=== PATIENT | female | born 1955 | race Caucasian/White ===

== ENCOUNTER 2018-02-23 10:43 | Outpatient (CLI) | payer MEDICARE, MEDICAID, SELFPAY ==
[2018-02-23 12:33] LABS: Anion Gap 11.8 mmol/L (3-11); BUN 12 mg/dL (7-18); CO2 26.2 mmol/L (21.0-32.0); CREATININE 0.78 mg/dL (0.55-1.02); Calcium 8.9 mg/dL (8.5-10.1); Chloride 98 mmol/L (98-107); Glucose 113 mg/dL (70-100); Potassium 4.5 mmol/L (3.5-5.1); Sodium 136 mmol/L (136-145)
== END 2018-02-23 11:03 ==
PROVIDERS: PCP Internal Medicine; Visit Provider Student in an Organized Health Care Education/Training Program
DX: N17.9 Acute kidney failure, unspecified (principal)
CPT/HCPCS: 36415; 80048

== ENCOUNTER 2018-06-07 12:24 | Outpatient (CLI) | payer MEDICARE, MEDICAID, SELFPAY ==
[2018-06-07 13:16] LABS: HCT 38.1 % (36.0-46.0); HGB 12.4 g/dL (12.0-15.5); Mean Corp. HGB Concentration 32.5 g/dL (32.0-36.0); Mean Corpuscular Hemoglobin 26.4 pg (27.0-33.0); Mean Corpuscular Volume 81.2 fL (80-95); Mean Platelet Volume 9.6 fL (8.0-11.0); Platelet Count 298 x1000/uL (130-400); RBC 4.69 m/cumm (4.00-5.20); RBC Distribution Width 17.3 % (11.7-14.6); White Blood Cell Count 12.68 k/cumm (4.4-10.8)
[2018-06-07 14:02] LABS: ALT 18 U/L (12-78); AST 18 U/L (15-37); Albumin 3.6 g/dL (3.4-5.0); Alkaline Phosphatase 105 U/L (46-116); Anion Gap 7.9 mmol/L (3-11); BUN 18 mg/dL (7-18); Bilirubin, Total 0.2 mg/dL (0.2-1.0); CO2 29.1 mmol/L (21.0-32.0); CREATININE 0.75 mg/dL (0.55-1.02); Calcium 9.3 mg/dL (8.5-10.1); Chloride 98 mmol/L (98-107); Glucose 120 mg/dL (70-100); Potassium 4.8 mmol/L (3.5-5.1); Sodium 135 mmol/L (136-145); Total Protein 7.1 g/dL (6.4-8.2)
[2018-06-07 14:27] LABS: TSH (W/Ref FT4) 1.97 uIU/mL (0.358-3.74)
== END 2018-06-07 12:44 ==
PROVIDERS: PCP Student in an Organized Health Care Education/Training Program; Visit Provider Student in an Organized Health Care Education/Training Program
DX: I10 Essential (primary) hypertension (principal); J44.9 Chronic obstructive pulmonary disease, unspecified; K74.60 Unspecified cirrhosis of liver; Z87.448 Personal history of other diseases of urinary system
CPT/HCPCS: 36415; 80053; 85027; 84443

== ENCOUNTER 2018-10-01 09:17 | Inpatient (IN) | payer MEDICARE, MEDICAID, SELFPAY ==
[2018-10-01] VITALS (37 sets, daily range): BP systolic 107–142; BP diastolic 64–87; PULSE 76–103; RESP 4–33; TEMP 36.9–37.3; O2SAT 83–98
[2018-10-01] MEDS: Albuterol/Ipratropium 3 ML UPD VIAL UPD ×3 (09:46→18:30)
[2018-10-01] MEDS: methylPREDNISolone SUCC 125 MG VIAL IVP (09:55)
--- NOTE | 2018-10-01 10:00 | DI.RAD_ITS ---
SYMPTOM/DIAGNOSIS: COUGH, SHORTNESS OF BREATH PA AND LATERAL CHEST: Comparison is made with 16 Jul 2016. The heart size is normal. There are old right rib deformities. There are patchy infiltrates seen in both lungs mainly in the lower lobes. There are underlying fibrotic changes. IMPRESSION: Bilateral infiltrates. Mild underlying fibrotic changes.
[2018-10-01 10:12] LABS: Abs Immature Grans 2.23 k/cumm (0.0-0.09); HCT 30.4 % (36.0-46.0); HGB 10.2 g/dL (12.0-15.5); Mean Corp. HGB Concentration 33.6 g/dL (32.0-36.0); Mean Corpuscular Hemoglobin 24.8 pg (27.0-33.0); Mean Corpuscular Volume 73.8 fL (80-95); Mean Platelet Volume 9.6 fL (8.0-11.0); Platelet Count 427 x1000/uL (130-400); RBC 4.12 m/cumm (4.00-5.20); RBC Distribution Width 16.1 % (11.7-14.6)
[2018-10-01 10:27] LABS: White Blood Cell Count 26.93 k/cumm (4.4-10.8)
[2018-10-01 10:30] LABS: Anion Gap 11.8 mmol/L (3-11); Bilirubin, Total 0.6 mg/dL (0.2-1.0); CO2 25.2 mmol/L (21.0-32.0); Chloride 98 mmol/L (98-107); Sodium 135 mmol/L (136-145)
[2018-10-01 10:41] LABS: Absolute Eosinophil Count 0.54 k/cumm (0.0-0.7); Absolute Lymphocyte Count 2.42 k/cumm (1.2-3.4); Absolute Monocyte Count 1.08 k/cumm (0.11-0.7); Absolute Neutrophil Count 21.27 k/cumm (1.2-6.7)
[2018-10-01 10:42] LABS: Diff Comment Manual Differential; Hypochromasia 2+; Microcytosis 2+
[2018-10-01 10:48] LABS: ALT 21 U/L (12-78); AST 32 U/L (15-37); Alkaline Phosphatase 186 U/L (46-116); BUN 47 mg/dL (7-18); CREATININE 0.94 mg/dL (0.55-1.02); Calcium 8.3 mg/dL (8.5-10.1); Glucose 147 mg/dL (70-100); Magnesium 1.6 mg/dL (1.8-2.4); NT-proBNP 354 pg/mL; Total Protein 7.1 g/dL (6.4-8.2)
[2018-10-01 10:49] LABS: Potassium 2.8 mmol/L (3.5-5.1); Troponin I < 0.02 ng/mL (0.00-0.06)
--- NOTE | 2018-10-01 10:50 | ED.GENADUL_ITS ---
Discharge Plan Disposition Patient Disposition: [facility] INPATIENT Condition: Serious Discharge Details Chief Complaint: SOB Clinical Impression: Pneumonia, Hypomagnesemia, Hypokalemia Primary Care Provider: Kirsten Friedman ED Provider: James Ge Home Meds and New Rx's Prescriptions: No Action gabapentin 300 mg capsule 300 mg PO TID Qty: 90 RF: 3 calcitriol 0.5 mcg capsule 0.5 mcg PO DAILY Qty: 30 RF: 5 methadone 10 mg/mL concentrate 75 mg PO DAILY RF: 0 compressor, for nebulizer device .ROUTE .MEDSUPPLY Qty: 1 RF: 0 polyethylene glycol 3350 [Miralax] 17 GM powder in packet 17 g PO DAILY PRNRF: 0 spironolactone [Aldactone] 25 MG tablet 25 mg PO BID Qty: 180 RF: 4 triamcinolone acetonide 15 GM cream 1 lorraine Topical TID PRNQty: 30 RF: 2 ibuprofen 200 MG capsule 400 mg PO q8h PRN PAIN Qty: 200 RF: 1 hydrochlorothiazide 25 MG tablet 25 mg PO DAILY Qty: 90 RF: 3 lisinopril 10 MG tablet 10 mg PO DAILY Qty: 30 RF: 11 mirtazapine 30 mg tablet 30 mg PO HS Qty: 30 RF: 11 bupropion HCl 300 mg tablet extended release 24 hr 300 mg PO DAILY Qty: 90 RF: 3 hydroxyzine pamoate 50 mg capsule 50 mg PO QID PRN (Reason: anxiety) Qty: 60 RF: 0 albuterol sulfate [ProAir HFA] 90 mcg/actuation HFA aerosol inhaler 1 - 2 puff Inhalation Q6H PRN PRN (Reason: bronchospasm) Qty: 3 RF: 1 albuterol sulfate 2.5 mg /3 mL (0.083 %) solution for nebulization 2.5 mg IH Q4H PRNRF: 0 albuterol sulfate 2.5 mg /3 mL (0.083 %) solution for nebulization 2.5 mg Continuous Nebulization Q4H PRN (Reason: shortness of breath or wheezing) Qty: 180 RF: 1 Medical Decision Making 10:45 --63-year-old female with history of hepatitis C cirrhosis, hypertension, COPD, here with 2 to 3 weeks of worsening cough and shortness of breath. Patient hypoxic saturating in the upper 80s on room air. Her baseline is lower 90s. 2 L nasal cannula oxygen administered and patient improved and now saturating the low 90s. She is afebrile and not tachycardic. Concern for pneumonia and acute exacerbation of COPD. Will give duoneb and solumedrol. 10:55 -- cxr interpreted by radiology: IMPRESSION: Opacities in the midlung regions in both bases may represent atelectasis or pneumonia. Will give ceftriaxone 1g IV for PNA. Labs reviewed: leukocytosis noted. hypomag and hypokalemia noted. Will give mag 1g. Will require further correction. Call to hospitalist to admit patient. 11:05 -- Spoke with hospitalist Dr. Zimmer who will admit. Recommends adding doxycycline. I will order a dose to be given now. Lactate and blood cultures pending at time of admission. HPI General Mode of arrival: ambulatory . Date/Time Provider Initiated Documentation: 10/01/18 09:28 . Limitations to Documentation: no limitations . Information obtained by: patient . HPI Narrative: 63-year-old female with multiple medical problems including history of hepatitis C cirrhosis, COPD, hypertension, here with chief complaint of shortness of breath. Patient notes that for the past 2 to 3 weeks she has had a cough. Cough started as what she describes as a upper respiratory tract infection cold. This worsened and has become a deeper intermittently productive cough. Cough productive of green sputum. Patient notes some posttussive emesis. She denies associated fever or chest pain. No leg swelling or calf pain. Shortness of breath is now moderate to severe and worse with exertion. She notes that she usually saturates in the more 90s. She went to her primary care physician yesterday who treated her with albuterol neb and symptoms seem to improve. PCP prescribed nebs for home which this has not yet been filled/delivered. Related Data Home Medications Medication Instructions Recorded Confirmed polyethylene glycol 3350 [Miralax] 17 g PO DAILY PRN packet 07/30/13 10/01/18 spironolactone 25 mg tablet 25 mg PO BID #180 tab-cap 02/08/17 10/01/18 triamcinolone acetonide 1 lorraine TOPICAL TID PRN #30 gm 09/07/17 10/01/18 ibuprofen 400 mg PO q8h PRN PAIN #200 tab-cap 12/21/17 10/01/18 hydrochlorothiazide 25 mg PO DAILY #90 tab-cap 01/25/18 10/01/18 lisinopril 10 mg PO DAILY #30 tab-cap 01/27/18 10/01/18 calcitriol 0.5 mcg capsule 0.5 mcg PO DAILY #30 cap 03/30/18 10/01/18 gabapentin 300 mg capsule 300 mg PO TID #90 cap 07/06/18 10/01/18 mirtazapine 30 mg tablet 30 mg PO HS #30 tab-cap 08/24/18 10/01/18 bupropion HCl XL 300 mg 24 hr 300 mg PO DAILY #90 tab 08/28/18 10/01/18 tablet, extended release hydroxyzine pamoate 50 mg capsule 50 mg PO QID PRN #60 tab-cap 08/29/18 10/01/18 albuterol sulfate HFA 90 1 - 2 puff INHALATION Q6H PRN PRN 09/18/18 10/01/18 mcg/actuation aerosol inhaler #3 inhaler albuterol sulfate 2.5 mg/3 mL 2.5 mg IH Q4H PRN 09/28/18 10/01/18 (0.083 %) solution for nebulization compressor, for nebulizer #1 each 09/28/18 10/01/18 methadone 10 mg/mL oral concentrate 75 mg PO DAILY ml 09/28/18 10/01/18 albuterol sulfate 2.5 mg/3 mL 2.5 mg CONTINUOUS NEBULIZATION Q4H 09/29/18 10/01/18 (0.083 %) solution for nebulization PRN #180 ml Previous Rx's Medication Instructions Recorded ibuprofen 400 mg PO q8h PRN PAIN #200 tab-cap 12/21/17 hydrochlorothiazide 25 mg PO DAILY #90 tab-cap 01/25/18 lisinopril 10 mg PO DAILY #30 tab-cap 01/27/18 calcitriol 0.5 mcg capsule 0.5 mcg PO DAILY #30 cap 03/30/18 gabapentin 300 mg capsule 300 mg PO TID #90 cap 07/06/18 mirtazapine 30 mg tablet 30 mg PO HS #30 tab-cap 08/24/18 bupropion HCl XL 300 mg 24 hr 300 mg PO DAILY #90 tab 08/28/18 tablet, extended release hydroxyzine pamoate 50 mg capsule 50 mg PO QID PRN #60 tab-cap 08/29/18 albuterol sulfate HFA 90 1 - 2 puff INHALATION Q6H PRN PRN 09/18/18 mcg/actuation aerosol inhaler #3 inhaler compressor, for nebulizer #1 each 09/28/18 albuterol sulfate 2.5 mg/3 mL 2.5 mg CONTINUOUS NEBULIZATION Q4H 09/29/18 (0.083 %) solution for nebulization PRN #180 ml Allergies Allergy/AdvReac Type Severity Reaction Status Date / Time gabapentin AdvReac Severe Nausea Verified 10/01/18 09:29 metaxalone [Metaxalone] AdvReac Severe nausea Verified 10/01/18 09:29 diclofenac [Diclofenac] AdvReac Intermediate contraindicated Verified 10/01/18 09:29 w/ pt's liver promethazine AdvReac Mild disoriented Verified 10/01/18 09:29 prochlorperazine AdvReac Unknown disoriented Verified 10/01/18 09:29 General Stated Complaint: SOB JANNIE: 2 Review of Systems Review of Systems All systems reviewed & are unremarkable except as noted in HPI and below Constitutional Denies fever(s) Cardiovascular Denies chest pain and Reports dyspnea Respiratory Reports cough, Denies hemoptysis and Reports dyspnea PFSH Medical History Essential hypertension (Chronic) Acute right-sided low back pain without sciatica (Acute 06/08/17) Shortness of breath (Acute) Abnormal CT of the chest (Acute 03/18/17) Acute renal failure (Resolved 04/29/14) Spinal stenosis (Chronic) Cirrhosis of liver (Chronic) Anxiety and depression (Chronic) Diabetes (Chronic) COPD (chronic obstructive pulmonary disease) (Chronic) Tobacco abuse (Chronic) Hypertension (Chronic) Bilateral pneumonia (Acute 04/29/14) Pleuritic chest pain (Acute 04/29/14) 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) Polysubstance abuse (Chronic) Methadone dependence (Chronic) Neuropathy of right radial nerve (Chronic) COPD (chronic obstructive pulmonary disease) Cirrhosis Diabetes mellitus HTN (hypertension) Hepatitis C Tobacco use disorder Surgical History Appendectomy (01/30/07) Family History Mother Myocardial infarction Stroke Sister Diabetes Myocardial infarction Sister Diabetes Father Diabetes Alcohol abuse Myocardial infarction Social History Smoking/Tobacco Use Status: Current-Occasional Tobacco Type: cigarettes Alcohol Intake: never Drug use: Never Substance use type: does not use Adopted: No Household members: none Housing: house Pets and animals: Yes Pets and animals: cat(s) What is your relationship status?: Panel score (0-1 are the most socially isolated patients): 0 What type of physical activity do you participate in: none Seatbelt use: always Drive intox or ride w/intox straddle bug driver: No Working smoke detector in home: Yes Fire extinguisher in home: Yes Carbon monox detector in home: Yes Do you feel safe at home: Yes Do you feel safe in your relationship?: Yes Exam Const General: cooperative and no acute distress Orientation: alert and awake HENMT Head: normocephalic Mouth: mucous membranes dry Eyes Conjunctivae: normal conjunctivae Sclera: normal sclerae Neck Neck: trachea midline and supple Resp Effort & Inspection: able to speak in complete sentences, cough and no respiratory distress Auscultation: rales bilaterally, no rhonchi and wheezes Cardio Jugular venous pressure: no JVD Rate: regular rate and not tachycardic Rhythm: regular rhythm Heart Sounds: murmur (chronic) GI Palpation: soft, not firm, no guarding, no masses, not rigid and nontender Skin General skin exam: no rashes or lesions noted Neuro General: alert, awake and tone normal Extrem General: no calf tenderness bilaterally and no edema Psych Appearance: grossly normal Mental Status: mental status grossly normal Speech and Movement: speech and movement normal Course Vital Signs Pulse Oximetry 83 L 10/01/18 09:14 Temperature 37.2 C 10/01/18 09:24 Temperature Source Temporal Artery Scan 10/01/18 09:24 Pulse 78 10/01/18 09:46 Pulse 81 10/01/18 09:50 Respiratory Rate 22 10/01/18 10:00 Respiratory Effort 10/01/18 10:00 Respiratory Depth Normal 10/01/18 10:00 Respiratory Pattern Normal 10/01/18 10:00 Blood Pressure 126/69 10/01/18 09:46 Blood Pressure Mean 83 10/01/18 09:46 Blood Pressure Position Sitting 10/01/18 09:24 Pulse Oximetry 96 10/01/18 09:50 Oxygen Delivery Method Room Air 10/01/18 09:24 Oxygen Flow Rate 0 10/01/18 09:24 Pain Level 0 10/01/18 09:24 Lab/Test Results Lab/Test Results: 10/01/18 10:33 Blood Blood Culture - Pending 10/01/18 10:33 Blood Blood Culture - Pending
--- NOTE | 2018-10-01 10:55 | DI.VRAD_ITS ---
EXAM: XR Chest, 2 Views EXAM DATE/TIME: 10/01/2018 10:21 AM CLINICAL HISTORY: 63 years old, female; Signs and symptoms; Cough and shortness of breath TECHNIQUE: Imaging protocol: XR of the chest, 2 views. COMPARISON: CR CHEST 2 VIEWS PA,LAT 07/16/2016 2:33 PM FINDINGS: Lungs: Opacities in the midlung regions in both bases may represent atelectasis or pneumonia. Pleural space: Unremarkable. No pleural effusion. No pneumothorax. Heart/Mediastinum: Unremarkable. No cardiomegaly. Bones/joints: Multiple healed right rib fractures Degenerative changes in the thoracic spine. Mild kyphosis IMPRESSION: Opacities in the midlung regions in both bases may represent atelectasis or pneumonia. Dictated and Authenticated by: Cathryn Garcia MD. Ordering:JARED Ramirez MD
[2018-10-01] MEDS: cefTRIAXone 1 GM/50 ML BAG IVPB (11:08)
[2018-10-01] MEDS: Doxycycline Hyclate 100 MG CAP PO (11:19)
[2018-10-01] MEDS: MAGNESIUM SULFATE 1 GM/100 ML BAG IVPB (11:50)
[2018-10-01] MEDS: Potassium Chloride 20 MEQ TABCR 40 MEQ PO ×2 (11:58→20:11)
--- NOTE | 2018-10-01 12:25 | W.PM.HP.N ---
Date of service: 10/01/18 Time of Service: 14:50 Assessment and Plan (1) CAP (community acquired pneumonia): Start date: 10/01/18 Start time: 14:37 Current visit: Yes Status: Acute prior to arrival she c/o Symptoms of a cold x 3 weeks with worsening SOB in the last week. Seen by provider and started on nebs, presents to ED today with hypoxia in mid 80's, cough, sputum production and SOB. CXR reveals opacities in mid lung region maybe pneumonia or atelectasis that is present prior to arrival. She was started on ceftriaxone and doxycycline. Updrafts, steroids, albuterol, she does not require oxygen at home and currently requiring 2 L oxygen. She does have a hx of COPD, her lungs have rhonchi, no wheezing or crackles. (2) COPD with acute exacerbation: Start date: 10/01/18 Start time: 14:42 Current visit: Yes Status: Acute See above, in the setting of CAP (3) Cirrhosis of liver: Start date: 10/01/18 Start time: 14:42 Current visit: No Status: Chronic History of cirrhosis with Hep C. Ammonia level checked, less than 10. Continue hydroclorithiazide. 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 (5) Diabetes: Start date: 10/01/18 Start time: 14:45 Current visit: No Status: Chronic Pt states she use to be on metformin for DM but she has since lost a lot of weight and does not require metformin. BGL here 147 by labs, unknown last A1C, A1C today 6.4 Started on SSI with sensitive scale, low carb diet and monitor blood sugars, Ac, HS (6) Essential hypertension: Start date: 10/01/18 Start time: 14:47 Current visit: No Status: Chronic lisinopril for HTN, continue to monitor. v.s. q 4 hours. (7) Tobacco abuse: Start date: 10/01/18 Start time: 14:47 Current visit: No Status: Chronic Current smoker x 30 years, not interested in smoking cessation at this time. Nicoderm patch ordered. Continue to assess patient readiness to quite. (8) GERD (gastroesophageal reflux disease): Start date: 10/01/18 Start time: 14:48 Current visit: Yes Status: Chronic Protonix 40 mg po daily (9) Opioid dependence on agonist therapy: Start date: 10/01/18 Start time: 14:49 Current visit: No Status: Chronic Takes methadone 75 mg, seen at [facility] and they manage her methadone. (10) Discharge planning issues: Start date: 10/01/18 Start time: 14:48 Current visit: Yes Status: Acute DNI (11) Hypokalemia: Start date: 10/01/18 Start time: 14:53 Current visit: Yes Status: Acute Repleted with K for level 2.8 monitor and replete as necessary. On telemetery for K (12) H/O supraventricular tachycardia: Start date: 10/01/18 Start time: 14:54 Current visit: Yes Status: Acute She does endorse hx of SVT especially when drinking caffeine. NSR at this time in the 80's. She is on telemetery and will be monitored for SVT, Monitor for prolong QT (13) Hypomagnesemia: Start date: 10/01/18 Start time: 14:53 Current visit: Yes Status: Acute Mag level of 1.6 repleted and continue to monitor and replete as necessary. (14) DVT prophylaxis: Start date: 10/01/18 Start time: 14:48 Current visit: Yes Status: Acute No history of GI bleed or varicies, Will use lovenox subcu 24 History of Present Illness Chief Complaint: CAP, COPD Narrative: Ms. Odonnell is a 63 y.o female with non oxygen dependant COPD, presenting to [facility] with complaints of cold like symtpoms x three weeks worsening over last week causing shortness of breath. Ms. Odonnell lives alone and for the last week has had increased SOB, she has PMH of HTN, COPD non oxygen dependent, DM, Cirrohsis, Tobacco abuse, Insomnia, SVT. She came to the [facility] Emergency Department today after worsening SOB, she did see her PCP at one point and was given nebs. Her illness got worse and she was coughing up brown sputum, she also states chills with fever over last week. When she arrived to the emergency department her oxygen saturation was in the mid to upper 80's requiring 2 liters of oxygen. Upon arrival per ED nursing she had wheezing and rhonchi. She had a CXR revealing opacities mid lung region questioning maybe pneumonia or atelectasis. She was asked to be admitted by our service for CAP with COPD exacerbation, she is admitted to ID with telemetery. She was started on ceftriaxone and doxycycline, sputum culture pending, blood cultures pending. Her lung sounds are rhonchi in lower bases no wheezing or crackles heard at this time, though she did have albuterol treatments prior to assessment. Solumedrol IV with tapering dose, updraft, albuterol and symbicort. Monitor for SVT with medication as patient has a hx of SVT, currently in SR with HR in 80's. She is requiring 2 L at this time. We will work on weaning O2. Ammonia level was done in setting of cirrohsis level less than 10. Her mag and potassium levels were repleted and will be checked with am labs and managed as needed. IVF for hydration with an elevated BUN. There is history of DM2 on metformin however patient states she lost a lot of weight and her sugars were good so she no longer needed coverage, while in the ED her bgl was 147 by labs with fingerstick on the floor 187, she did receive a dose of steroids, an A1C was ordered with a level of 6.4, at this time we will monitor blood sugars and use SSI in the setting of infection with steroid use. She does take lisinopril for blood pressure which will be continued. Currently takes methodone 75 mg for pain she is [facility] and she is being treated for anxiety and depression through psychiatry, we will continue her current treatment. She denies, n/v/d, CP. Review of Systems Constitutional Reports system reviewed and no additional complaints, except as docu Eyes Reports system reviewed and no additional complaints, except as docu ENT Reports system reviewed and no additional complaints, except as docu Cardiovascular Reports system reviewed and no additional complaints, except as docu Respiratory Reports as per HPI Gastrointestinal Reports system reviewed and no additional complaints, except as docu Genitourinary Reports system reviewed and no additional complaints, except as docu Musculoskeletal Reports system reviewed and no additional complaints, except as docu Integumentary/Breasts Reports system reviewed and no additional complaints, except as docu Neurologic Reports system reviewed and no additional complaints, except as [facility] Psychiatric Reports as per [facility] Endocrine Reports system reviewed and no additional complaints, except as [facility] Hematologic/Lymphatic Reports system reviewed and no additional complaints, except as [facility] Medical History Essential hypertension (Chronic) Acute right-sided low back pain without sciatica (Acute 06/08/17) Shortness of breath (Acute) Abnormal CT of the chest (Acute 03/18/17) Acute renal failure (Resolved 04/29/14) Spinal stenosis (Chronic) Cirrhosis of liver (Chronic) Anxiety and depression (Chronic) Diabetes (Chronic) COPD (chronic obstructive pulmonary disease) (Chronic) Tobacco abuse (Chronic) Hypertension (Chronic) Bilateral pneumonia (Acute 04/29/14) Pleuritic chest pain (Acute 04/29/14) 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) Polysubstance abuse (Chronic) Methadone dependence (Chronic) Neuropathy of right radial nerve (Chronic) COPD (chronic obstructive pulmonary disease) Cirrhosis Diabetes mellitus HTN (hypertension) Hepatitis C Tobacco use disorder Surgical History Appendectomy (01/30/07) Family History Mother Myocardial infarction Stroke Sister Diabetes Myocardial infarction Sister Diabetes Father Diabetes Alcohol abuse Myocardial infarction Social History Smoking/Tobacco Use Status: Current-Occasional Tobacco Type: cigarettes Alcohol Intake: never Drug use: Never Substance use type: does not use Adopted: No Household members: none Housing: house Pets and animals: Yes Pets and animals: cat(s) What is your relationship status?: Panel score (0-1 are the most socially isolated patients): 0 What type of physical activity do you participate in: none Seatbelt use: always Drive intox or ride w/intox bulk tank driver: No Working smoke detector in home: Yes Fire extinguisher in home: Yes Carbon monox detector in home: Yes Do you feel safe at home: Yes Do you feel safe in your relationship?: Yes Meds Home Medications Medication Instructions Recorded Confirmed Type polyethylene glycol 3350 [Miralax] 17 g PO DAILY PRN packet 07/30/13 10/01/18 History spironolactone 25 mg tablet 25 mg PO BID #180 tab-cap 02/08/17 10/01/18 History triamcinolone acetonide 1 lorraine TOPICAL TID PRN #30 gm 09/07/17 10/01/18 History ibuprofen 400 mg PO q8h PRN PAIN #200 tab-cap 12/21/17 10/01/18 Rx hydrochlorothiazide 25 mg PO DAILY #90 tab-cap 01/25/18 10/01/18 Rx lisinopril 10 mg PO DAILY #30 tab-cap 01/27/18 10/01/18 Rx calcitriol 0.5 mcg capsule 0.5 mcg PO DAILY #30 cap 03/30/18 10/01/18 Rx gabapentin 300 mg capsule 300 mg PO TID #90 cap 07/06/18 10/01/18 Rx mirtazapine 30 mg tablet 30 mg PO HS #30 tab-cap 08/24/18 10/01/18 Rx bupropion HCl XL 300 mg 24 hr 300 mg PO DAILY #90 tab 08/28/18 10/01/18 Rx tablet, extended release hydroxyzine pamoate 50 mg capsule 50 mg PO QID PRN #60 tab-cap 08/29/18 10/01/18 Rx albuterol sulfate HFA 90 1 - 2 puff INHALATION Q6H PRN PRN 09/18/18 10/01/18 Rx mcg/actuation aerosol inhaler #3 inhaler albuterol sulfate 2.5 mg/3 mL 2.5 mg IH Q4H PRN 09/28/18 10/01/18 History (0.083 %) solution for nebulization compressor, for nebulizer #1 each 09/28/18 10/01/18 Rx methadone 10 mg/mL oral concentrate 75 mg PO DAILY ml 09/28/18 10/01/18 History albuterol sulfate 2.5 mg/3 mL 2.5 mg CONTINUOUS NEBULIZATION Q4H 09/29/18 10/01/18 Rx (0.083 %) solution for nebulization PRN #180 ml Allergies Allergy/AdvReac Type Severity Reaction Status Date / Time gabapentin AdvReac Severe Nausea Verified 10/01/18 09:29 metaxalone [Metaxalone] AdvReac Severe nausea Verified 10/01/18 09:29 diclofenac [Diclofenac] AdvReac Intermediate contraindicated Verified 10/01/18 09:29 w/ pt's liver promethazine AdvReac Mild disoriented Verified 10/01/18 09:29 prochlorperazine AdvReac Unknown disoriented Verified 10/01/18 09:29 Exam Const General: cooperative, comfortable and no acute distress Orientation: alert, awake and oriented x3 Eyes General: appearance normal, both eyes and all related structures Neck Lymphatic: no lymphadenopathy noted and no lymphedema noted Chest Chest: normal inspection of the chest Resp Effort & Inspection: able to speak in complete sentences Auscultation: rhonchi Other: requiring 2 liters of oxygen at this time. Cardio Jugular venous pressure: no JVD Palpation: normal PMI Rate: regular rate Rhythm: regular rhythm Heart Sounds: S1 normal and S2 normal GI Inspection: normal to inspection Auscultation: normal bowel sounds Skin General skin exam: no rashes or lesions noted Neuro General: alert, awake and oriented x3 Extrem General: normal to inspection Results Labs : 10/01/18 09:55 10/01/18 09:55 Laboratory Results - last 24 hr 10/01/18 10/01/18 10/01/18 09:55 09:55 11:04 WBC 26.93 H* RBC 4.12 Hgb 10.2 L Hct 30.4 L MCV 73.8 L MCH 24.8 L MCHC 33.6 RDW 16.1 H Plt Count 427 H MPV 9.6 Immature Gran % See Differential Neutrophils % 79.0 Lymphocytes % 9.0 Monocytes % 4.0 Eosinophils % 2.0 Basophils % 0.0 Metamyelocytes % 8.0 Absolute Neutrophils 21.27 H Absolute Lymphocytes 2.42 Absolute Monocytes 1.08 H Absolute Eosinophils 0.54 Absolute Basophils 0.00 Differential Comment Manual differential RBC Morphology See below Hypochromasia 2+ Microcytosis 2+ Sodium 135 L Potassium 2.8 L* Chloride 98 Carbon Dioxide 25.2 Anion Gap 11.8 H BUN 47 H Creatinine 0.94 Estimated GFR/1.73 m2 >= 60.00 Glucose 147 H Lactate 1.0 Calcium 8.3 L Magnesium 1.6 L Total Bilirubin 0.6 AST 32 ALT 21 Alkaline Phosphatase 186 H Troponin I < 0.02 NT-Pro-B Natriuret Pep 354 H Total Protein 7.1 Albumin 2.0 L Last Vital Signs Temp 37.1 C 10/01/18 12:14 Pulse 80 10/01/18 11:45 Resp 16 10/01/18 12:01 BP 120/70 10/01/18 11:45 Pulse Ox 93 L 10/01/18 12:01
--- NOTE | 2018-10-01 12:29 | HPE_ITS ---
Date of service: 10/01/18 Time of Service: 14:50 Assessment and Plan (1) CAP (community acquired pneumonia): Start date: 10/01/18 Start time: 14:37 Current visit: Yes Status: Acute prior to arrival she c/o Symptoms of a cold x 3 weeks with worsening SOB in the last week. Seen by provider and started on nebs, presents to ED today with hypoxia in mid 80's, cough, sputum production and SOB. CXR reveals opacities in mid lung region maybe pneumonia or atelectasis that is present prior to arrival. She was started on ceftriaxone and doxycycline. Updrafts, steroids, albuterol, she does not require oxygen at home and currently requiring 2 L oxygen. She does have a hx of COPD, her lungs have rhonchi, no wheezing or crackles. (2) COPD with acute exacerbation: Start date: 10/01/18 Start time: 14:42 Current visit: Yes Status: Acute See above, in the setting of CAP (3) Cirrhosis of liver: Start date: 10/01/18 Start time: 14:42 Current visit: No Status: Chronic History of cirrhosis with Hep C. Ammonia level checked, less than 10. Continue hydroclorithiazide. 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 (5) Diabetes: Start date: 10/01/18 Start time: 14:45 Current visit: No Status: Chronic Pt states she use to be on metformin for DM but she has since lost a lot of weight and does not require metformin. BGL here 147 by labs, unknown last A1C, A1C today 6.4 Started on SSI with sensitive scale, low carb diet and monitor blood sugars, Ac, HS (6) Essential hypertension: Start date: 10/01/18 Start time: 14:47 Current visit: No Status: Chronic lisinopril for HTN, continue to monitor. v.s. q 4 hours. (7) Tobacco abuse: Start date: 10/01/18 Start time: 14:47 Current visit: No Status: Chronic Current smoker x 30 years, not interested in smoking cessation at this time. Nicoderm patch ordered. Continue to assess patient readiness to quite. (8) GERD (gastroesophageal reflux disease): Start date: 10/01/18 Start time: 14:48 Current visit: Yes Status: Chronic Protonix 40 mg po daily (9) Opioid dependence on agonist therapy: Start date: 10/01/18 Start time: 14:49 Current visit: No Status: Chronic Takes methadone 75 mg, seen at [facility] and they manage her methadone. (10) Discharge planning issues: Start date: 10/01/18 Start time: 14:48 Current visit: Yes Status: Acute DNI (11) Hypokalemia: Start date: 10/01/18 Start time: 14:53 Current visit: Yes Status: Acute Repleted with K for level 2.8 monitor and replete as necessary. On telemetery for K (12) H/O supraventricular tachycardia: Start date: 10/01/18 Start time: 14:54 Current visit: Yes Status: Acute She does endorse hx of SVT especially when drinking caffeine. NSR at this time in the 80's. She is on telemetery and will be monitored for SVT, Monitor for prolong QT (13) Hypomagnesemia: Start date: 10/01/18 Start time: 14:53 Current visit: Yes Status: Acute Mag level of 1.6 repleted and continue to monitor and replete as necessar y. (14) DVT prophylaxis: Start date: 10/01/18 Start time: 14:48 Current visit: Yes Status: Acute No history of GI bleed or varicies, Will use lovenox subcu 24 History of Present Illness Chief Complaint: CAP, COPD Narrative: Ms. Odonnell is a 63 y.o female with non oxygen dependant COPD, presenting to [facility] with complaints of cold like symtpoms x three weeks worsening over last week causing shortness of breath. Ms. Odonnell lives alone and for the last week has had increased SOB, she has PMH of HTN, COPD non oxygen dependent, DM, Cirrohsis, Tobacco abuse, Insomnia, SVT. She came to the [facility] Emergency Department today after worsening SOB, she did see her PCP at one point and was given nebs. Her illness got worse and she was coughing up brown sputum, she also states chills with fever over last week. When she arrived to the emergency department her oxygen saturation was in the mid to upper 80's requiring 2 liters of oxygen. Upon arrival per ED nursing she had wheezing and rhonchi. She had a CXR revealing opacities mid lung region questioning maybe pneumonia or atelectasis. She was asked to be admitted by our service for CAP with COPD exacerbation, she is admitted to [place] with telemetery. She was started on ceftriaxone and doxycycline, sputum culture pending, blood cultures pending. Her lung sounds are rhonchi in lower bases no wheezing or crackles heard at this time, though she did have albuterol treatments prior to assessment. Solumedrol IV with tapering dose, updraft, albuterol and symbicort. Monitor for SVT with medication as patient has a hx of SVT, currently in SR with HR in 80's. She is requiring 2 L at this time. We will work on weaning O2. Ammonia level was done in setting of cirrohsis level less than 10. Her mag and potassium levels were repleted and will be checked with am labs and managed as needed. IVF for hydration with an elevated BUN. There is history of DM2 on metformin however patient states she lost a lot of weight and her sugars were good so she no longer needed coverage, while in the ED her bgl was 147 by labs with fingerstick on the floor 187, she did receive a dose of steroids, an A1C was ordered with a level of 6.4, at this time we will monitor blood sugars and use SSI in the setting of infection with steroid use. She does take lisinopril for blood pressure which will be continued. Currently takes methodone 75 mg for pain she is seen through the [facility] clinic and she is being treated for anxiety and depression through psychiatry, we will continue her current treatment. She denies, n/v/d, CP. Review of Systems Constitutional Reports system reviewed and no additional complaints, except as docu Eyes Reports system reviewed and no additional complaints, except as docu ENT Reports system reviewed and no additional complaints, except as docu Cardiovascular Reports system reviewed and no additional complaints, except as docu Respiratory Reports as per HPI Gastrointestinal Reports system reviewed and no additional complaints, except as docu Genitourinary Reports system reviewed and no additional complaints, except as docu Musculoskeletal Reports system reviewed and no additional complaints, except as docu Integumentary/Breasts Reports system reviewed and no additional complaints, except as [facility] Neurologic Reports system reviewed and no additional complaints, except as [facility] Psychiatric Reports as per [facility] Endocrine Reports system reviewed and no additional complaints, except as [facility] Hematologic/Lymphatic Reports system reviewed and no additional complaints, except as [facility] Medical History Essential hypertension (Chronic) Acute right-sided low back pain without sciatica (Acute 06/08/17) Shortness of breath (Acute) Abnormal CT of the chest (Acute 03/18/17) Acute renal failure (Resolved 04/29/14) Spinal stenosis (Chronic) Cirrhosis of liver (Chronic) Anxiety and depression (Chronic) Diabetes (Chronic) COPD (chronic obstructive pulmonary disease) (Chronic) Tobacco abuse (Chronic) Hypertension (Chronic) Bilateral pneumonia (Acute 04/29/14) Pleuritic chest pain (Acute 04/29/14) 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) Polysubstance abuse (Chronic) Methadone dependence (Chronic) Neuropathy of right radial nerve (Chronic) COPD (chronic obstructive pulmonary disease) Cirrhosis Diabetes mellitus HTN (hypertension) Hepatitis C Tobacco use disorder Surgical History Appendectomy (01/30/07) Family History Mother Myocardial infarction Stroke Sister Diabetes Myocardial infarction Sister Diabetes Father Diabetes Alcohol abuse Myocardial infarction Social History Smoking/Tobacco Use Status: Current-Occasional Tobacco Type: cigarettes Alcohol Intake: never Drug use: Never Substance use type: does not use Adopted: No Household members: none Housing: house Pets and animals: Yes Pets and animals: cat(s) What is your relationship status?: Panel score (0-1 are the most socially isolated patients): 0 What type of physical activity do you participate in: none Seatbelt use: always Drive intox or ride w/intox driver/merchandiser: No Working smoke detector in home: Yes Fire extinguisher in home: Yes Carbon monox detector in home: Yes Do you feel safe at home: Yes Do you feel safe in your relationship?: Yes Meds Home Medications Medication Instructions Recorded Confirmed Type polyethylene glycol 3350 [Miralax] 17 g PO DAILY PRN packet 07/30/13 10/01/18 History spironolactone 25 mg tablet 25 mg PO BID #180 tab-cap 02/08/17 10/01/18 History triamcinolone acetonide 1 lorraine TOPICAL TID PRN #30 gm 09/07/17 10/01/18 History ibuprofen 400 mg PO q8h PRN PAIN #200 tab-cap 12/21/17 10/01/18 Rx hydrochlorothiazide 25 mg PO DAILY #90 tab-cap 01/25/18 10/01/18 Rx lisinopril 10 mg PO DAILY #30 tab-cap 01/27/18 10/01/18 Rx calcitriol 0.5 mcg capsule 0.5 mcg PO DAILY #30 cap 03/30/18 10/01/18 Rx gabapentin 300 mg capsule 300 mg PO TID #90 cap 07/06/18 10/01/18 Rx mirtazapine 30 mg tablet 30 mg PO HS #30 tab-cap 08/24/18 10/01/18 Rx bupropion HCl XL 300 mg 24 hr 300 mg PO DAILY #90 tab 08/28/18 10/01/18 Rx tablet, extended release hydroxyzine pamoate 50 mg capsule 50 mg PO QID PRN #60 tab-cap 08/29/18 10/01/18 Rx albuterol sulfate HFA 90 1 - 2 puff INHALATION Q6H PRN PRN 09/18/18 10/01/18 Rx mcg/actuation aerosol inhaler #3 inhaler albuterol sulfate 2.5 mg/3 mL 2.5 mg IH Q4H PRN 09/28/18 10/01/18 History (0.083 %) solution for nebulization compressor, for nebulizer #1 each 09/28/18 10/01/18 Rx methadone 10 mg/mL oral concentrate 75 mg PO DAILY ml 09/28/18 10/01/18 History albuterol sulfate 2.5 mg/3 mL 2.5 mg CONTINUOUS NEBULIZATION Q4H 09/29/18 10/01/18 Rx (0.083 %) solution for nebulization PRN #180 ml Allergies Allergy/AdvReac Type Severity Reaction Status Date / Time gabapentin AdvReac Severe Nausea Verified 10/01/18 09:29 metaxalone [Metaxalone] AdvReac Severe nausea Verified 10/01/18 09:29 diclofenac [Diclofenac] AdvReac Intermediate contraindicated Verified 10/01/18 09:29 w/ pt's liver promethazine AdvReac Mild disoriented Verified 10/01/18 09:29 prochlorperazine AdvReac Unknown disoriented Verified 10/01/18 09:29 Exam Const General: cooperative, comfortable and no acute distress Orientation: alert, awake and oriented x3 Eyes General: appearance normal, both eyes and all related structures Neck Lymphatic: no lymphadenopathy noted and no lymphedema noted Chest Chest: normal inspection of the chest Resp Effort & Inspection: able to speak in complete sentences Auscultation: rhonchi Other: requiring 2 liters of oxygen at this time. Cardio Jugular venous pressure: no JVD Palpation: normal PMI Rate: regular rate Rhythm: regular rhythm Heart Sounds: S1 normal and S2 normal GI Inspection: normal to inspection Auscultation: normal bowel sounds Skin General skin exam: no rashes or lesions noted Neuro General: alert, awake and oriented x3 Extrem General: normal to inspection Results Labs : 10/01/18 09:55 10/01/18 09:55 Laboratory Results - last 24 hr 10/01/18 10/01/18 10/01/18 09:55 09:55 11:04 WBC 26.93 H* RBC 4.12 Hgb 10.2 L Hct 30.4 L MCV 73.8 L MCH 24.8 L MCHC 33.6 RDW 16.1 H Plt Count 427 H MPV 9.6 Immature Gran % See Differential Neutrophils % 79.0 Lymphocytes % 9.0 Monocytes % 4.0 Eosinophils % 2.0 Basophils % 0.0 Metamyelocytes % 8.0 Absolute Neutrophils 21.27 H Absolute Lymphocytes 2.42 Absolute Monocytes 1.08 H Absolute Eosinophils 0.54 Absolute Basophils 0.00 Differential Comment Manual differential RBC Morphology See below Hypochromasia 2+ Microcytosis 2+ Sodium 135 L Potassium 2.8 L* Chloride 98 Carbon Dioxide 25.2 Anion Gap 11.8 H BUN 47 H Creatinine 0.94 Estimated GFR/1.73 m2 >= 60.00 Glucose 147 H Lactate 1.0 Calcium 8.3 L Magnesium 1.6 L Total Bilirubin 0.6 AST 32 ALT 21 Alkaline Phosphatase 186 H Troponin I < 0.02 NT-Pro-B Natriuret Pep 354 H Total Protein 7.1 Albumin 2.0 L Last Vital Signs Temp 37.1 C 10/01/18 12:14 Pulse 80 10/01/18 11:45 Resp 16 10/01/18 12:01 BP 120/70 10/01/18 11:45 Pulse Ox 93 L 10/01/18 12:01
[2018-10-01] MEDS: Insulin Aspart 300 UNITS/3 ML PEN SC ×3 (13:52→22:20)
[2018-10-01] MEDS: Nicotine 21 MG/24 HR PATCH TD (14:04)
[2018-10-01] MEDS: Gabapentin 300 MG CAP PO ×2 (14:04→20:10)
[2018-10-01] MEDS: Benzonatate 200 MG CAP PO ×2 (14:05→20:10)
[2018-10-01 14:27] LABS: Ammonia < 10 umol/L (11-32)
[2018-10-01 14:28] LABS: Hemoglobin A1C 6.4 % (4.5-6.2)
[2018-10-01] MEDS: Enoxaparin 40 MG/0.4 ML SYR SC (17:21)
[2018-10-01] MEDS: methylPREDNISolone SUCC 125 MG VIAL 80 MG IVP (17:23)
[2018-10-01] MEDS: Normal Saline Flush 10 ML SYR IVP ×2 (17:28→17:56)
[2018-10-01] MEDS: Furosemide 40 MG/4 ML VIAL IVP (17:55)
[2018-10-01 18:05] LABS: Potassium 3.8 mmol/L (3.5-5.1)
[2018-10-01] MEDS: guaiFENesin 600 MG TABCR PO (20:10)
[2018-10-01] MEDS: Spironolactone 25 MG TAB PO (20:10)
[2018-10-01] MEDS: DOXYCYCLINE 100 MG in Normal Saline 100 ML IVPB (20:21)
[2018-10-01] MEDS: Budesonide/Formoterol 160/4.5 6 GM 60 PUFF INH IH (20:22)
[2018-10-01] MEDS: Mirtazapine 15 MG TAB 30 MG PO (22:19)
[2018-10-02] VITALS (19 sets, daily range): BP systolic 100–133; BP diastolic 66–86; PULSE 64–84; RESP 1–20; TEMP 36.4–37.8; O2SAT 90–97
[2018-10-02] MEDS: Albuterol/Ipratropium 3 ML UPD VIAL UPD ×4 (00:24→23:45)
[2018-10-02] MEDS: Normal Saline Flush 10 ML SYR IVP ×4 (02:33→20:16)
[2018-10-02] MEDS: methylPREDNISolone SUCC 125 MG VIAL 80 MG IVP ×3 (02:34→17:49)
[2018-10-02 07:20] LABS: HCT 30.7 % (36.0-46.0); HGB 10.1 g/dL (12.0-15.5); Mean Corp. HGB Concentration 32.9 g/dL (32.0-36.0); Mean Corpuscular Hemoglobin 24.6 pg (27.0-33.0); Mean Corpuscular Volume 74.7 fL (80-95); Mean Platelet Volume 9.4 fL (8.0-11.0); Platelet Count 392 x1000/uL (130-400); RBC 4.11 m/cumm (4.00-5.20); RBC Distribution Width 16.2 % (11.7-14.6); White Blood Cell Count 19.68 k/cumm (4.4-10.8)
[2018-10-02] MEDS: guaiFENesin 600 MG TABCR PO ×2 (07:26→20:17)
[2018-10-02] MEDS: Potassium Chloride 20 MEQ TABCR 40 MEQ PO ×2 (07:29→20:17)
[2018-10-02] MEDS: Spironolactone 25 MG TAB PO ×2 (07:29→20:17)
[2018-10-02] MEDS: Benzonatate 200 MG CAP PO ×3 (07:29→20:17)
[2018-10-02] MEDS: Pantoprazole 40 MG TABCR PO (07:30)
[2018-10-02 07:31] LABS: Anion Gap 11.9 mmol/L (3-11); BUN 39 mg/dL (7-18); CO2 25.1 mmol/L (21.0-32.0); CREATININE 0.86 mg/dL (0.55-1.02); Calcium 8.5 mg/dL (8.5-10.1); Chloride 99 mmol/L (98-107); Glucose 190 mg/dL (70-100); Magnesium 1.4 mg/dL (1.8-2.4); Potassium 3.9 mmol/L (3.5-5.1); Sodium 136 mmol/L (136-145)
[2018-10-02] MEDS: DOXYCYCLINE 100 MG in Normal Saline 100 ML IVPB ×2 (07:31→20:16)
[2018-10-02] MEDS: Gabapentin 300 MG CAP PO ×3 (07:33→20:17)
[2018-10-02] MEDS: buPROPion-XL 150 MG TABCR 300 MG PO (08:30)
[2018-10-02] MEDS: Calcitriol 0.25 MCG CAP 0.5 MCG PO (08:30)
[2018-10-02] MEDS: hydroCHLOROthiazide 25 MG TAB PO (08:31)
[2018-10-02] MEDS: Lisinopril 10 MG TAB PO (08:32)
[2018-10-02] MEDS: Insulin Aspart 300 UNITS/3 ML PEN SC ×4 (08:37→21:53)
--- NOTE | 2018-10-02 08:46 | PDOC.CMIN ---
Care Management Initial Assess REASON FOR HOSPITALIZATION:: Acute exacerbation of COPD with hypoxia, CAP PAST MEDICAL HISTORY/PAST SURGICAL HISTORY:: Essential hypertension, Acute right-sided low back pain without sciatic, Shortness of breath, Abnormal CT of the chest, Acute renal failure, Spinal stenosis, Cirrhosis of liver, Anxiety and depression, Diabetes, COPD. Tobacco abuse, Hypertension, Bilateral pneumonia. Pleuritic chest pain, 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. Polysubstance abuse, Methadone dependence, Neuropathy of right radial nerve, COPD, Cirrhosis, Diabetes mellitus, HTN, Hepatitis C, Tobacco use disorder PREVIOUS FUNCTIONAL STATUS/SOCIAL/FAMILY SUPPORTS:: Kira resides alone in [place], [place] in her own mobile home. She reports supportive friends nearby who help her with ADLs as needed. She reports being a patient of [facility] with daily meds and transport via [facility]. She reports having an outpatient counselor; Selena Morgan. CURRENT FUNCTIONAL STATUS:: Kira was lying in bed, open to conversation and forthcoming with information. Has patient been provided with information about the portal?: Yes Did the patient sign up for the portal?: No CODE STATUS:: DNI INSURANCE COVERAGE / FINANCIAL ISSUES:: Medicaid. Medicare CURRENT HOME/COMMUNITY SERVICES/EQUIPMENT:: [facility], [facility], [facility], individual counseling: svetlana Sinclair meds prescribed by PCP. PRIMARY CARE PHYSICIAN:: Kirsten Arellano POTENTIAL DISCHARGE NEEDS:: Follow up appointments, coordination with community providers. PATIENT/FAMILY EDUCATION NEEDS:: Review of discharge instructions; discuss [facility]. ANTICIPATED BARRIERS TO DISCHARGE:: None identified. TRANSPORTATION:: Via private vehicle with a friend or via [facility]. PLAN:: Kira will continue to be closely monitored at this time. CM will continue to support discharge planning considerations. Kira will transport via private vehicle with a friend.
[2018-10-02] MEDS: Methadone Liquid 10 MG/ML 75 MG PO (09:13)
[2018-10-02] MEDS: MAGNESIUM SULFATE 4 GM/100 ML BAG IVPB (09:19)
[2018-10-02 09:27] LABS: Absolute Lymphocyte Count 0.59 k/cumm (1.2-3.4); Anisocytosis 1+; Atypical Lymphocytes % 1; Diff Comment Manual Differential
[2018-10-02 09:28] LABS: Hypochromasia 1+; Microcytosis 2+; Poikilocytes 1+; Polychromasia Present
[2018-10-02] MEDS: Budesonide/Formoterol 160/4.5 6 GM 60 PUFF INH IH ×2 (09:58→20:17)
[2018-10-02] MEDS: cefTRIAXone 1 GM/50 ML BAG IVPB (10:01)
[2018-10-02] MEDS: Magnesium Oxide 400 MG TAB PO ×2 (10:02→21:53)
--- NOTE | 2018-10-02 11:17 | PGE_ITS ---
Date of Service Date of service: 10/02/18 Time of Service: 11:52 Assessment and Plan (1) CAP (community acquired pneumonia): Start date: 10/02/18 Start time: 11:14 Current visit: Yes Status: Acute Day 2 rocephin and doxycycline. She did have some crackles last night she was given lasix, this morning she does have crackles and 1+ edema, no fluids are infusing but antbiotics, question a CHF component vs volume overload vs pulmonary HTN in the setting of CAP and COPD exacerbation Echo ordered, placed on lasix 20 mg IV BID and monitor. Continue steroids, nebs, updrafts, symbicort. Coughing but producing little sputum, continue mucinex requiring two liters oxygen at this time. blood cultures with no growth at this time. Gram stain pending at this time. Afebrile, feeling improved (2) COPD with acute exacerbation: Start date: 10/02/18 Start time: 11:28 Current visit: Yes Status: Acute See above, in the setting of CAP nebs, steroids, oxygen, updrafts (3) Cirrhosis of liver: Start date: 10/02/18 Start time: 11:30 Current visit: No Status: Chronic History of cirrhosis with Hep C. Ammonia level checked, less than 10. Continue hydroclorithiazide. Qualifiers: Hepatic cirrhosis type: other cirrhosis Qualified Code(s): K74.69 - Other cirrhosis of liver (4) Fluid overload: Start date: 10/02/18 Start time: 11:31 Current visit: Yes Status: Acute Given crackles in the lungs, 1+ edema, no IVF infusing, and hx of cirrhosis, question CHF, vs. volume overload, vs. 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 (6) Diabetes: Start date: 10/02/18 Start time: 11:37 Current visit: No Status: Chronic A1C of 6.4 on SSI, public health educator consulted. (7) Essential hypertension: Start date: 10/02/18 Start time: 11:40 Current visit: No Status: Chronic lisinopril for HTN, continue to monitor. v.s. q 4 hours. controlled at this time (8) Tobacco abuse: Start date: 10/02/18 Start time: 11:41 Current visit: No Status: Chronic continue encourage smoking cessation (9) GERD (gastroesophageal reflux disease): Start date: 10/02/18 Start time: 11:41 Current visit: Yes Status: Chronic Protonix 40 mg po daily (10) Opioid dependence on agonist therapy: Start date: 10/02/18 Current visit: No Status: Chronic Takes methadone 75 mg, seen at [facility] (11) Discharge planning issues: Start date: 10/02/18 Start time: 11:41 Current visit: Yes Status: Acute DNI (12) Hypokalemia: Current visit: Yes Status: Acute Resolved today 3.9 continue to monitor by daily labs (13) H/O supraventricular tachycardia: Start date: 10/02/18 Start time: 11:42 Current visit: Yes Status: Acute She does endorse hx of SVT especially when drinking caffeine. NSR at this time in the 80's. She is on telemetery and will be monitored for SVT, Monitor for prolong QT (14) Hypomagnesemia: Current visit: Yes Status: Acute Mag level of 1.4 today after repletion yesterday repleted with 4 gram infusion and mag oxide 400 mg BID and continue to monitor (15) DVT prophylaxis: Start date: 10/02/18 Start time: 11:43 Current visit: Yes Status: Acute lovenox subcu 24 Subjective Patient reports: feels better Interval history since last seen: Ms. Odonnell states she is feeling better though on assessment she is found to have crackles in bilateral bases with rhonchi and requiring 2 liters of oxygen. She does have 1+ edema to bilateral ankles. Lasix 20 mg IVP BID ordered. Echo ordered questionable, CHF vs. volume overload though no fluids have been infusing except antibiotics, vs pulmonary hypertension. She does not know if she has ever had an echo, she has had PFT in the past and she denies CHIQUIS. Day 2 rocephine and doxycycline, continue steroids, nebs, updrafts, and albuterol. She does have a hx of SVT, given she is on symbicort and nebs continue to telemetery currently in NSR with rate of 80-90's. She is currently requiring 2 liters of oxygen we will wean her off. She is non oxygen dependant. Her mag level was lower today despite repletetion yesterday. 4 gram run ordered and 400 mg mag oxide BID ordered for repletetion. Her A1C was 6.4 continue SSI and carb diet. staff development educator consulted. She denies, CP, SOB when sitting and n/v/d Exam Const General: cooperative, comfortable and no acute distress Orientation: alert, awake and oriented x3 Eyes General: appearance normal, both eyes and all related structures Neck Lymphatic: no lymphadenopathy noted and no lymphedema noted Chest Chest: normal inspection of the chest Resp Effort & Inspection: able to speak in complete sentences Auscultation: crackles and rhonchi Cardio Jugular venous pressure: no JVD Palpation: normal PMI Rate: regular rate Rhythm: regular rhythm Heart Sounds: S1 normal and S2 normal GI Inspection: normal to inspection Auscultation: normal bowel sounds Skin General skin exam: no rashes or lesions noted Neuro General: alert, awake and oriented x3 Extrem General: normal to inspection Objective Objective Clinical Data: Abnormal lab results 10/01/18 10/01/18 10/02/18 Range/Units 09:55 14:10 06:40 WBC (4.4-10.8) k/cumm Hgb (12.0-15.5) g/dL Hct (36.0-46.0) % MCV (80-95) fL MCH (27.0-33.0) pg RDW (11.7-14.6) % Absolute Neutrophils (1.2-6.7) k/cumm Absolute Lymphocytes (1.2-3.4) k/cumm Anion Gap 11.9 H (3-11) mmol/L BUN 39 H (7-18) mg/dL Glucose 190 H (70-100) mg/dL Hemoglobin A1c 6.4 H (4.5-6.2) % Magnesium 1.4 L (1.8-2.4) mg/dL Ammonia < 10 L (11-32) umol/L 10/02/18 Range/Units 06:46 WBC 19.68 H (4.4-10.8) k/cumm Hgb 10.1 L (12.0-15.5) g/dL Hct 30.7 L (36.0-46.0) % MCV 74.7 L (80-95) fL MCH 24.6 L (27.0-33.0) pg RDW 16.2 H (11.7-14.6) % Absolute Neutrophils 18.70 H (1.2-6.7) k/cumm Absolute Lymphocytes 0.59 L (1.2-3.4) k/cumm Anion Gap (3-11) mmol/L BUN (7-18) mg/dL Glucose (70-100) mg/dL Hemoglobin A1c (4.5-6.2) % Magnesium (1.8-2.4) mg/dL Ammonia (11-32) umol/L Vital Signs Temperature 37.5 C 10/02/18 07:30 Temperature Source Tympanic 10/02/18 07:30 Pulse 84 10/02/18 07:30 Pulse Rhythm Regular 10/02/18 07:06 Pulse 92 H 10/01/18 12:01 Respiratory Rate 18 10/02/18 07:14 Respiratory Effort 10/02/18 07:06 Respiratory Depth Normal 10/02/18 07:06 Respiratory Pattern Normal 10/02/18 07:06 Blood Pressure 116/68 10/02/18 07:30 Blood Pressure Mean 83 10/01/18 11:45 Blood Pressure Position Sitting 10/01/18 09:24 Pulse Oximetry 90 L 10/02/18 10:00 Oxygen Delivery Method Nasal Cannula 10/02/18 10:00 Oxygen Flow Rate 1 10/02/18 10:00 Pain Level 0 10/02/18 00:30 Comment 10/02/18 07:30 Intake & Output 10/01/18 10/01/18 10/02/18 11:59 23:59 11:59 Intake Total 50 / 1170 1120 / 1170 600 / 600 Output Total 2425 / 2425 700 / 700 Balance 50 / -1255 -1305 / -1255 -100 / -100 Weight 51.9 kg 49.4 kg Intake: IV 50 / 150 100 / 150 Oral 1020 / 1020 600 / 600 Output: Urine 2425 / 2425 700 / 700 Other: Urine Color Yellow Dark Jo Urine Appearance Clear Clear Urine Odor None Comment Was given 40mg of lasix Voiding Methods Toilet Toilet Laboratory Results WBC 19.68 k/cumm (4.4-10.8) H 10/02/18 06:46 RBC 4.11 m/cumm (4.00-5.20) 10/02/18 06:46 Hgb 10.1 g/dL (12.0-15.5) L 10/02/18 06:46 Hct 30.7 % (36.0-46.0) L 10/02/18 06:46 MCV 74.7 fL (80-95) L 10/02/18 06:46 MCH 24.6 pg (27.0-33.0) L 10/02/18 06:46 MCHC 32.9 g/dL (32.0-36.0) 10/02/18 06:46 RDW 16.2 % (11.7-14.6) H 10/02/18 06:46 Plt Count 392 x1000/uL (130-400) 10/02/18 06:46 MPV 9.4 fL (8.0-11.0) 10/02/18 06:46 Immature Gran % See Differential 10/02/18 06:46 Neutrophils % 89.0 10/02/18 06:46 Band Neutrophils % 6.0 % 10/02/18 06:46 Lymphocytes % 2.0 10/02/18 06:46 Atypical Lymphs % 1 10/02/18 06:46 Monocytes % 1.0 10/02/18 06:46 Eosinophils % 0.0 10/02/18 06:46 Basophils % 0.0 10/02/18 06:46 Metamyelocytes % 8.0 % 10/01/18 09:55 Myelocytes % 1.0 % 10/02/18 06:46 Absolute Neutrophils 18.70 k/cumm (1.2-6.7) H 10/02/18 06:46 Absolute Lymphocytes 0.59 k/cumm (1.2-3.4) L 10/02/18 06:46 Absolute Monocytes 0.20 k/cumm (0.11-0.7) 10/02/18 06:46 Absolute Eosinophils 0.00 k/cumm (0.0-0.7) 10/02/18 06:46 Absolute Basophils 0.00 k/cumm (0.0-0.2) 10/02/18 06:46 Differential Comment Manual differential 10/02/18 06:46 RBC Morphology See below 10/02/18 06:46 Polychromasia Present 10/02/18 06:46 Hypochromasia 1+ 10/02/18 06:46 Poikilocytosis 1+ 10/02/18 06:46 Anisocytosis 1+ 10/02/18 06:46 Microcytosis 2+ 10/02/18 06:46 Sodium 136 mmol/L (136-145) 10/02/18 06:40 Potassium 3.9 mmol/L (3.5-5.1) 10/02/18 06:40 Chloride 99 mmol/L (98-107) 10/02/18 06:40 Carbon Dioxide 25.1 mmol/L (21.0-32.0) 10/02/18 06:40 Anion Gap 11.9 mmol/L (3-11) H 10/02/18 06:40 BUN 39 mg/dL (7-18) H 10/02/18 06:40 Creatinine 0.86 mg/dL (0.55-1.02) 10/02/18 06:40 Estimated GFR/1.73 m2 >= 60.00 (mL/min/1.73m2) 10/02/18 06:40 Glucose 190 mg/dL (70-100) H 10/02/18 06:40 Hemoglobin A1c 6.4 % (4.5-6.2) H 10/01/18 09:55 Lactate 1.0 mmol/l (0.6-1.4) 10/01/18 11:04 Calcium 8.5 mg/dL (8.5-10.1) 10/02/18 06:40 Magnesium 1.4 mg/dL (1.8-2.4) L 10/02/18 06:40 Total Bilirubin 0.6 mg/dL (0.2-1.0) 10/01/18 09:55 AST 32 U/L (15-37) 10/01/18 09:55 ALT 21 U/L (12-78) 10/01/18 09:55 Alkaline Phosphatase 186 U/L (46-116) H 10/01/18 09:55 Ammonia < 10 umol/L (11-32) L 10/01/18 14:10 Troponin I < 0.02 ng/mL (0.00-0.06) 10/01/18 09:55 NT-Pro-B Natriuret Pep 354 pg/mL (-299) H 10/01/18 09:55 Total Protein 7.1 g/dL (6.4-8.2) 10/01/18 09:55 Albumin 2.0 g/dL (3.4-5.0) L 10/01/18 09:55
--- NOTE | 2018-10-02 14:08 | PT.INIE ---
Date of service: 10/02/18 Time of Service: 13:15 PT Notes Inpatient Physical Therapy Evaluation Date: 10/02/18 Referring Doctor: Carlene Virk PT Orders: PT CONSULT:Eval and treat Precautions: Standard and mask Patient Profile/Admitting Diagnosis: Presented to ER on 10/01 due to SOB developing over 2-3 weeks. Confirmed community acquired pneumonia in ER, with admission required for proper treatment. 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 Has a neighbor who looks in on her. No supportive family. 3 steps with rail to enter. Current Functional Limitations: SOB with short distance ambulation, O2 dependent. Equipment Owned/DME: None Premorbid level of function: Independent, able to lift light to moderate objects, cleans her own home, relies on [facility] for transportation to [facility] daily for methadone. Subjective: Feels her breathing has improved since admission. She Objective: General Observation: Sitting, with nasal canula, IV L cubital fossa Mental Status: A & O x3 Pain: 0/10 Vital Signs: BP 105/67, HR 77, 89% 02 on 1L ROM: Right Upper Extremity: WFL Left Upper Extremity: WFL Right Lower Extremity: WFL Left Lower Extremity: WFL Strength: Right Upper Extremity: Grossly WFL Left Upper Extremity: Grossly WFL Right Lower Extremity: Grossly WFL Left Lower Extremity: Grossly WFL Endurance: POOR, only tolerating 45 ft with O2 support, due to SOB. Sensation: Intact Bed Mobility/Transfers: Supervision Gait: Supervision due to SOB, 1 L 02 via NC. O2 dropped to 87%, but recovers quickly. Balance: Static Sitting: Good Dynamic Sitting: Good Static Standing: Good Dynamic Standing: Good Special Tests: Mobility Limitations Standardized Measure [facility] AM-PAC 6 clicks Basic Mobility Inpatient Short Form: Raw Score: Standardized Score: CMS Score: 20% disabiltiy CMS Modifier: Informed Consent/Education: Patient instructed in purpose of PT consult and plan of care. Assessment: Patient is a 63 year old female referred to physical therapy services with the diagnosis of deconditioning, secondary to community aquired penumonia and exacerbation of COPD. Patient presents with clinical signs and symptoms consistent with SOB and O2 dependence, as demonstrated by the following impairment level findings: SOB, O2 dependence, supervision required for ambulation. Impairments are contributing to the following functional limitations: [facility] score 20% disability, unable to ambulate beyond 45 ft without supervision and 1L02 support due to SOB, quick fatigue with basic functional activities. Patient is assessed as a Low 84175 x Moderate 67807 High 26185 complexity based on the following: History: See PMH Examination: See above impairments and functional limitations Presentation: Evolving Decision Making: Easy Goals: Goals X1 week 1. Supine-Sit I 2. Sit-Supine I 3. Sit-Stand I 4. Stand-Sit I 5. Bed-Chair I 6. Chair-Bed I 7. Gait I, household distance no O2 support 8. Stairs 3, I, no O2 support. Plan of Care/Treatment Plan: 1-2x/day, 7 days/week x 1 week. Plan of care has been reviewed with the RESIDENCE SUPERVISOR providing the service under Physical Therapy direction. Initiate Physical Therapy intervention for strengthening, bed mobility, transfers, gait, stairs, balance training, use of assistive device. DISCHARGE RECOMMENDATIONS: Home. Outpatient PT for continued conditioning if physical limitations demand. TREATMENT CODE/TIME: 28351, 30 minutes.
--- NOTE | 2018-10-02 14:18 | OT.INIE ---
Occupational Therapy Notes Inpatient Occupational Therapy Evaluation Date: 10/02/18 Referring Doctor:Carlene Virk NP OT Orders: Deconditioning Precautions: Droplet Precautions PATIENT PROFILE/ADMITTING DIAGNOSIS: Pt is a 63 year old female who was admitted through the ER on 09/30/18 for pneumonia, hypomagnesemia, hypokalemia. 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 She states that she does not perform her own community ambulation but has friends who (A) with this and states that she receives rides through [employer]. Pt has a walk in shower she is (I) with all ADLs/IADLs. She reports that her friends drive her to go grocery shopping. She does not require O2 at home but believes that this is helpful for her. Pt reports that she has difficulty maintaining her yard work and that her 5 years ago so she had to learn fast what needed to be done. Equipment owned/DME: None per pt report. SUBJECTIVE: Pt was sitting in bed when OT arrived. She was agreeable to OT consult and states that she feels that she is pretty much at her baseline level of function at this time but with use of oxygen. OBJECTIVE: General Observation: O2 nasal cannula, IV (L) UE, Mental Status: A&Ox3 Pain: c/o pain pt does not specify but reports that she would like to have her gabapentin if that is ok. Nursing came in post session to assess this at this time. ROM: RUE AROM WNL L UE AROM WNL STRENGTH: RUE Shoulder flexion 4/5, bicep/tricep 4/5, furniture inspector 5/5 LUE Shoulder flexion 5/5, bicep/tricep 5/5, furniture inspector 5/5 FUNCTIONAL MOBILITY/ADLS: Pt denies the need to perform ADLs as she states that she performed this (I) earlier this morning. BALANCE: Static sitting Normal Dynamic Sitting Normal Static Standing NT Dynamic Standing NT SPECIAL TESTS: Daily Activity Limitations Standardized Measure [facility] AM -PAC ?6 clicks? Daily Activity Inpatient Short Form: Raw score: 23 Standardized score: 51.12 CMS score: 25.80% INFORMED CONSENT/EDUCATION: Pt instructed in purpose of OT Consult and plan of care. ASSESSMENT: Patient is a 63-year-old female referred to occupational therapy services with diagnosis of pneumonia, hypomagnesemia, hypokalemia. Patient presents with clinical signs and symptoms consistent with dx. Pt was seen for OT consult only. Pt does not feel that she needs OT services at this time as she feels that she is able to perform her ADLs at her baseline level of function. Patient is assessed as a Low 87399 complexity based on the following: History: See Above Examination: See Above Presentation: Evolving Decision Making: AMPAC score 23, CMS score 25.80% GOALS N/A PLAN OF CARE/TREATMENT PLAN: OT consult only. DISCHARGE RECOMMENDATIONS OT recommends that pt return home when medically cleared per MD. OT recommends pt get a shower bench and grab bars to increase pts (I) and safety during bathing routine. TREATMENT TIME/MINUTES/CODES 16950, 10 minutes (14:05) [facility]
--- NOTE | 2018-10-02 14:31 | OTIE_ITS ---
Occupational Therapy Notes Inpatient Occupational Therapy Evaluation Date: 10/02/18 Referring Doctor:Carlene Virk NP OT Orders: Deconditioning Precautions: Droplet Precautions PATIENT PROFILE/ADMITTING DIAGNOSIS: Pt is a 63 year old female who was admitted through the ER on 09/30/18 for pneumonia, hypomagnesemia, hypokalemia. 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 She states that she does not perform her own community ambulation but has friends who (A) with this and states that she receives rides through [employer]. Pt has a walk in shower she is (I) with all ADLs/IADLs. She reports that her friends drive her to go grocery shopping. She does not require O2 at home but believes that this is helpful for her. Pt reports that she has difficulty maintaining her yard work and that her 5 years ago so she had to learn fast what needed to be done. Equipment owned/DME: None per pt report. SUBJECTIVE: Pt was sitting in bed when OT arrived. She was agreeable to OT consult and states that she feels that she is pretty much at her baseline level of function at this time but with use of oxygen. OBJECTIVE: General Observation: O2 nasal cannula, IV (L) UE, Mental Status: A&Ox3 Pain: c/o pain pt does not specify but reports that she would like to have her gabapentin if that is ok. Nursing came in post session to assess this at this time. ROM: RUE AROM WNL L UE AROM WNL STRENGTH: RUE Shoulder flexion 4/5, bicep/tricep 4/5, float nurse 5/5 LUE Shoulder flexion 5/5, bicep/tricep 5/5, float nurse 5/5 FUNCTIONAL MOBILITY/ADLS: Pt denies the need to perform ADLs as she states that she performed this (I) earlier this morning. BALANCE: Static sitting Normal Dynamic Sitting Normal Static Standing NT Dynamic Standing NT SPECIAL TESTS: Daily Activity Limitations Standardized Measure [facility] AM -PAC ?6 clicks? Daily Activity Inpatient Short Form: Raw score: 23 Standardized score: 51.12 CMS score: 25.80% INFORMED CONSENT/EDUCATION: Pt instructed in purpose of OT Consult and plan of care. ASSESSMENT: Patient is a 63-year-old female referred to occupational therapy services with diagnosis of pneumonia, hypomagnesemia, hypokalemia. Patient presents with clinical signs and symptoms consistent with dx. Pt was seen for OT consult only. Pt does not feel that she needs OT services at this time as she feels that she is able to perform her ADLs at her baseline level of function. Patient is assessed as a Low 44558 complexity based on the following: History: See Above Examination: See Above Presentation: Evolving Decision Making: AMPAC score 23, CMS score 25.80% GOALS N/A PLAN OF CARE/TREATMENT PLAN: OT consult only. DISCHARGE RECOMMENDATIONS OT recommends that pt return home when medically cleared per MD. OT recommends pt get a shower bench and grab bars to increase pts (I) and safety during bathing routine. TREATMENT TIME/MINUTES/CODES 67617, 10 minutes (14:05) [facility]
[2018-10-02] MEDS: Enoxaparin 40 MG/0.4 ML SYR SC (15:20)
[2018-10-02] MEDS: Furosemide 20 MG/2 ML VIAL IVP (15:21)
--- NOTE | 2018-10-02 15:48 | PHARADMIT ---
Addendum entered by Piter Azevedo III 10/04/18 12:24: Pharmacy Note Subjective MD feels patient is fluid overloaded and is restricting Sodium and increasing Spironolactone to 50mg BID & Lasix to 40MG IV BID Objective VS-OK Na-128 K+4.6 Mag-1.5 WBC-23.39 SCr-0.88 H&H-up Wgt-49.7 kg Small BM today Assessment Mag 4GM IV bolus given, Rocephin dc'd, switched to Zosyn along with Doxycycline. IV steroids to PO Plan Watch I&Os, Wgt, SCr, Mag, & WBC Addendum entered by Piter Azevedo III 10/03/18 12:29: Pharmacy Note Subjective RT noted course crackles, plan to keep her on IV steroids & ABX for now Objective VS-OK Pain:10/20 Na-132 Mag-1.7 Wgt-49.8 kg No BM yet Assessment IV Rocephin & Doxycycline continue. Plan Requires daily liquid Methadone Original Note: Admission Pharmacy Clinical Review acute exacerbation of COPD with hypoxia, CAP Code Status DNI Current Weight 49.4 kg Renally Cleared and Narrow Therapeutic Index Meds Crcl ~49.3 mL/min gabapentin- should be 200-700 BID for Crcl 30-59 mL/min, MAST MAKER aware and wanted to continue pts home dose QTc Value / Action Taken n/a pt is on methadone and has other meds that could prolong QTc so she is currently on telemetry BP Control, Fever bp 100/66 afebrile Electrolytes reviewed mag 1.4 DVT Prophylaxis enoxaparin Opiate Usage / Scheduled Bowel Regimen Ordered methadone/prn Plt/SCr for Heparin / Enoxaparin plt 392 SCr 0.86 INR for Warfarin n/a H/H stable, WBC/Bands h/h 10.1/30.7 wbc 19.68 Antibiotic appropriateness doxycycline and ceftriaxone Cultures and Sensitivities blood cultures- no growth@24 hours sputum expectorated- contaminated rapid flu negative Surgical ABX d/c within 24 hr n/a DM control / Insulin Dosing BG 190 sliding scale aspart Heart Failure (Check EF%) (MICKI's, B-Block, Diuretics) furosemide, hydrochlorothiazide, lisinopril, spironolactone IV to PO Switch n/a Home Meds Reviewed multiple [facility]YCHIAT[facility] depressants: methadone, carisoprodol, gabapentin, hydroxyzine, mirtazapine -multiple QT prolonging meds: methadone, hydroxyzine, mirtazapine, formoterol, albuterol -bupropion may inhibit the metabolism of mirtazapine Home Meds Not Ordered carisoprodol, ibuprofen, meloxicam Comments
[2018-10-02] MEDS: Mirtazapine 15 MG TAB 30 MG PO (21:53)
[2018-10-03] VITALS (13 sets, daily range): BP systolic 105–124; BP diastolic 63–78; PULSE 61–82; RESP 12–20; TEMP 36–36.9; O2SAT 93–96
[2018-10-03] MEDS: methylPREDNISolone SUCC 125 MG VIAL 80 MG IVP ×3 (01:36→17:56)
[2018-10-03] MEDS: Albuterol/Ipratropium 3 ML UPD VIAL UPD ×3 (05:17→17:52)
[2018-10-03 07:14] LABS: Abs Immature Grans 2.02 k/cumm (0.0-0.09); HCT 33.4 % (36.0-46.0); HGB 10.9 g/dL (12.0-15.5); Mean Corp. HGB Concentration 32.6 g/dL (32.0-36.0); Mean Corpuscular Hemoglobin 24.7 pg (27.0-33.0); Mean Corpuscular Volume 75.6 fL (80-95); Mean Platelet Volume 9.7 fL (8.0-11.0); Platelet Count 436 x1000/uL (130-400); RBC 4.42 m/cumm (4.00-5.20); RBC Distribution Width 16.5 % (11.7-14.6)
[2018-10-03 07:16] LABS: White Blood Cell Count 25.24 k/cumm (4.4-10.8)
[2018-10-03 07:22] LABS: Anion Gap 7.3 mmol/L (3-11); BUN 34 mg/dL (7-18); CO2 26.7 mmol/L (21.0-32.0); CREATININE 0.89 mg/dL (0.55-1.02); Calcium 8.7 mg/dL (8.5-10.1); Chloride 98 mmol/L (98-107); Glucose 164 mg/dL (70-100); Magnesium 1.7 mg/dL (1.8-2.4); Potassium 4.9 mmol/L (3.5-5.1); Sodium 132 mmol/L (136-145)
[2018-10-03] MEDS: Budesonide/Formoterol 160/4.5 6 GM 60 PUFF INH IH ×2 (07:28→19:44)
[2018-10-03 07:35] LABS: Absolute Lymphocyte Count 2.02 k/cumm (1.2-3.4); Absolute Monocyte Count 0.76 k/cumm (0.11-0.7); Anisocytosis 1+; Diff Comment Manual Differential; Hypochromasia 2+; Microcytosis 2+; Poikilocytes 1+; Polychromasia Present
[2018-10-03] MEDS: Methadone Liquid 10 MG/ML 75 MG PO (08:55)
[2018-10-03] MEDS: Benzonatate 200 MG CAP PO ×3 (08:56→19:43)
[2018-10-03] MEDS: Gabapentin 300 MG CAP PO ×3 (08:56→19:43)
[2018-10-03] MEDS: Pantoprazole 40 MG TABCR PO (08:56)
[2018-10-03] MEDS: buPROPion-XL 150 MG TABCR 300 MG PO (08:56)
[2018-10-03] MEDS: Spironolactone 25 MG TAB PO ×2 (08:57→19:43)
[2018-10-03] MEDS: Calcitriol 0.25 MCG CAP 0.5 MCG PO (08:57)
[2018-10-03] MEDS: hydroCHLOROthiazide 25 MG TAB PO (08:57)
[2018-10-03] MEDS: guaiFENesin 600 MG TABCR PO ×2 (08:57→19:43)
[2018-10-03] MEDS: Lisinopril 10 MG TAB PO (08:57)
[2018-10-03] MEDS: Normal Saline Flush 10 ML SYR IVP ×4 (08:59→19:45)
[2018-10-03] MEDS: Furosemide 20 MG/2 ML VIAL IVP ×3 (08:59→17:13)
[2018-10-03] MEDS: DOXYCYCLINE 100 MG in Normal Saline 100 ML IVPB ×2 (09:21→19:44)
[2018-10-03] MEDS: Insulin Aspart 300 UNITS/3 ML PEN SC ×3 (09:53→21:41)
[2018-10-03] MEDS: Magnesium Oxide 400 MG TAB PO ×2 (10:43→21:39)
[2018-10-03] MEDS: cefTRIAXone 1 GM/50 ML BAG IVPB (10:43)
--- NOTE | 2018-10-03 11:00 | DI.RAD_ITS ---
SYMPTOM/DIAGNOSIS: F/U PNEUMONIA, ACUTE EXAC OF COPD PORTABLE AP CHEST: Comparison is made with 10/01/18. The heart size is within normal limits for projection. Again noted are bibasilar infiltrates, not significantly changed. No effusions are visible. Old rib fractures are again noted. There is prominent scoliosis as well as degenerative changes in the spine. IMPRESSION: Stable infiltrates, greatest in the right lower lobe.
[2018-10-03] MEDS: MAGNESIUM SULFATE 2 GM/50 ML BAG IVPB (12:10)
--- NOTE | 2018-10-03 15:04 | PT.INTREAT ---
Date of service: 10/03/18 Time of Service: 15:04 PT Notes Inpatient Physical Therapy Treatment Note [facility] Date: 10/03/18 PRECAUTIONS: Fall SUBJECTIVE: Kira states that she is sick of coughing but that she is feeling a little better today. OBJECTIVE: PAIN: No c/o pain BED MOBILITY/TRANSFERS Supine?sit: I Sit?supine: I Sit-stand: S Stand-sit: S GAIT Assistive Device: No AD Weight bearing: Full Assist: SBA Distance: 20' x2 h a.m.; 80' x2 in p.m. Deviation: Seated rest x1 due to SOB in p.m. THEREX: Patient completed several lower extremity strengthening exercises, while seated at EOB, as per flow sheet. Patient toileted in both a.m. and p.m., independently. ASSESSMENT: Patient tolerated session with c/o SOB with gait training. She would benefit from continued strengthening, as well as gait and transfer training for improved activity tolerance and cardiovascular endurance. PLAN: Continue with PT's POC TREATMENT CODE/TIME: Session 1: 15 minutes; 07016 Session 2: 25 minutes; 80998, [id number]
--- NOTE | 2018-10-03 15:09 | PTTR_ITS ---
Date of service: 10/03/18 Time of Service: 15:04 PT Notes Inpatient Physical Therapy Treatment Note [facility] Date: 10/03/18 PRECAUTIONS: Fall SUBJECTIVE: Kira states that she is sick of coughing but that she is feeling a little better today. OBJECTIVE: PAIN: No c/o pain BED MOBILITY/TRANSFERS Supine?sit: I Sit?supine: I Sit-stand: S Stand-sit: S GAIT Assistive Device: No AD Weight bearing: Full Assist: SBA Distance: 20' x2 h a.m.; 80' x2 in p.m. Deviation: Seated rest x1 due to SOB in p.m. THEREX: Patient completed several lower extremity strengthening exercises, while seated at EOB, as per flow sheet. Patient toileted in both a.m. and p.m., independently. ASSESSMENT: Patient tolerated session with c/o SOB with gait training. She would benefit from continued strengthening, as well as gait and transfer training for improved activity tolerance and cardiovascular endurance. PLAN: Continue with PT's POC TREATMENT CODE/TIME: Session 1: 15 minutes; 39191 Session 2: 25 minutes; [id number], [id number]
[2018-10-03] MEDS: Enoxaparin 40 MG/0.4 ML SYR SC (15:50)
--- NOTE | 2018-10-03 16:43 | PDOC.CMPRO ---
Care Management Progress Note S/O: Kira was lying in bed when CM met with her, she remains pleasant in interaction and verbalized understanding of her clinical needs and plan. She also shared concerns around coordination of last dose letter to [facility] upon discharge; CM assured Kira that this grant writer could support coordination of the letter. CM will continue to follow. A: 63 year old female admitted to [facility] 10/01/18 for Acute Exacerbation fo COPD with Hypoxia P: Kira will return home, resume supports including daily [facility] dosing (CM will coordinate last dose letter) via RCT, M[facility] and follow up with her PCP. Kira will transport via private vehicle with a friend.
--- NOTE | 2018-10-03 16:46 | CMPROGNOTE_ITS ---
Care Management Progress Note S/O: Kira was lying in bed when CM met with her, she remains pleasant in interaction and verbalized understanding of her clinical needs and plan. She also shared concerns around coordination of last dose letter to [facility] upon discharge; CM assured Kira that this greeting card writer could support coordination of the letter. CM will continue to follow. A: 63 year old female admitted to [facility] 10/01/18 for Acute Exacerbation fo COPD with Hypoxia P: Kira will return home, resume supports including daily [facility] dosing (CM will coordinate last dose letter) via RCT, MOW and follow up with her PCP. Kira will transport via private vehicle with a friend.
--- NOTE | 2018-10-03 19:10 | PGE_ITS ---
Date of Service Date of service: 10/03/18 Time of Service: 16:00 Assessment and Plan (1) CAP (community acquired pneumonia): Current visit: Yes Status: Acute Day 3 rocephin and doxycycline. CXR without improvement and WBC is going up - this could be due to steroids, but to be safe, will change rocephin to zosyn. (2) COPD with acute exacerbation: Current visit: Yes Status: Acute Continue antibiotics; start to taper steroids. Continue nebs. On symbicort. (3) Cirrhosis of liver: Current visit: No Status: Chronic History of cirrhosis with Hep C. Ammonia level checked, less than 10. Continue aldactone and increase lasix. Qualifiers: Hepatic cirrhosis type: other cirrhosis Qualified Code(s): K74.69 - Other cirrhosis of liver (4) Fluid overload: Current visit: Yes Status: Acute Increase lasix. Continue aldactone. D/c HCTZ. Await echo. (5) Anxiety and depression: Current visit: No Status: Chronic Continue bupropion xl and atarax as needed for anxiety. (6) Diabetes: Current visit: No Status: Chronic A1C of 6.4 on SSI, music educator consulted. (7) Essential hypertension: Current visit: No Status: Chronic Continue lisinopril/aldactone; HCTZ d/c'ed. Continue to monitor (8) Tobacco abuse: Current visit: No Status: Chronic continue encourage smoking cessation provide nicotine patch (9) GERD (gastroesophageal reflux disease): Current visit: Yes Status: Chronic Continue Protonix 40 mg po daily (10) Opioid dependence on agonist therapy: Current visit: No Status: Chronic Continue methadone 75 mg (normally, a client of [facility]) (11) Hypokalemia: Current visit: Yes Status: Acute Resolved. D/c PO potassium. (12) H/O supraventricular tachycardia: Current visit: Yes Status: Acute She does endorse hx of SVT especially when drinking caffeine. NSR at this time in the 80's. Tele d/c'ed. On symbicort - would d/c if SVT recurs. (13) Hypomagnesemia: Current visit: Yes Status: Acute Replete (14) DVT prophylaxis: Current visit: Yes Status: Acute lovenox SC. (15) Discharge planning issues: Current visit: Yes Status: Acute DNI Subjective Interval history since last seen: Ms Odonnell states she is feeling better, but knows she still has a lot of fluid in her lungs. She states she started to hear the squeak on the left side of her lung about a week before she presented. Denies dizziness, chest pain, nausea,vomiting. States her legs are a little bit swollen. Exam Narrative Exam Narrative: General: very pleasant middle-aged female, sitting up comfortably in her bed, no tachypnea/dyspnea noted on room air HEENT: EOMI, MMM Heart: RRR, no m/r/g Lungs: expiratory squeak on the L; crackles at B bases GI: abdomen is soft, nontender, nondistended, + mild ascites Extremities: trace edema BLE, no clubbing/cyanosis Objective Objective Clinical Data: Abnormal lab results 10/03/18 10/03/18 Range/Units 06:16 06:16 WBC 25.24 H* (4.4-10.8) k/cumm Hgb 10.9 L (12.0-15.5) g/dL Hct 33.4 L (36.0-46.0) % MCV 75.6 L (80-95) fL MCH 24.7 L (27.0-33.0) pg RDW 16.5 H (11.7-14.6) % Plt Count 436 H (130-400) x1000/uL Absolute Neutrophils 21.20 H (1.2-6.7) k/cumm Absolute Monocytes 0.76 H (0.11-0.7) k/cumm Sodium 132 L (136-145) mmol/L BUN 34 H (7-18) mg/dL Glucose 164 H (70-100) mg/dL Magnesium 1.7 L (1.8-2.4) mg/dL Vital Signs Temperature 36.9 C 10/03/18 15:33 Temperature Source Tympanic 10/03/18 15:33 Pulse 77 10/03/18 15:33 Pulse Rhythm Regular 10/03/18 09:09 Pulse 92 H 10/01/18 12:01 Respiratory Rate 18 10/03/18 15:33 Respiratory Effort Non-Labored 10/03/18 09:09 Respiratory Depth Normal 10/03/18 09:09 Respiratory Pattern Normal 10/03/18 09:09 Blood Pressure 109/71 10/03/18 15:33 Blood Pressure Mean 83 10/01/18 11:45 Blood Pressure Position Sitting 10/01/18 09:24 Pulse Oximetry 96 10/03/18 15:33 Oxygen Delivery Method Room Air 10/03/18 15:33 Oxygen Flow Rate 0 10/03/18 15:33 Pain Level 0 10/03/18 14:01 Comment 10/02/18 07:30 Intake & Output 10/02/18 10/03/18 10/03/18 23:59 11:59 23:59 Intake Total 240 / 990 240 / 420 180 / 420 Output Total 950 / 1650 1650 / 3150 1500 / 3150 Balance -710 / -660 -1410 / -2730 -1320 / -2730 Weight 49.8 kg Intake: IV 120 / 270 Oral 120 / 720 240 / 420 180 / 420 Output: Urine 950 / 1650 1650 / 3150 1500 / 3150 Other: Urine Color Pale Yellow Pale Yellow Urine Appearance Clear Clear Clear Urine Odor None Comment pt uses the bathroom independently patient voided large amount in toilet but missed the measuring device Voiding Methods Toilet Toilet Laboratory Results WBC 25.24 k/cumm (4.4-10.8) H* 10/03/18 06:16 RBC 4.42 m/cumm (4.00-5.20) 10/03/18 06:16 Hgb 10.9 g/dL (12.0-15.5) L 10/03/18 06:16 Hct 33.4 % (36.0-46.0) L 10/03/18 06:16 MCV 75.6 fL (80-95) L 10/03/18 06:16 MCH 24.7 pg (27.0-33.0) L 10/03/18 06:16 MCHC 32.6 g/dL (32.0-36.0) 10/03/18 06:16 RDW 16.5 % (11.7-14.6) H 10/03/18 06:16 Plt Count 436 x1000/uL (130-400) H 10/03/18 06:16 MPV 9.7 fL (8.0-11.0) 10/03/18 06:16 Immature Gran % See Differential 10/03/18 06:16 Neutrophils % 84.0 10/03/18 06:16 Band Neutrophils % 6.0 % 10/02/18 06:46 Lymphocytes % 8.0 10/03/18 06:16 Atypical Lymphs % 1 10/02/18 06:46 Monocytes % 3.0 10/03/18 06:16 Eosinophils % 0.0 10/03/18 06:16 Basophils % 0.0 10/03/18 06:16 Metamyelocytes % 4.0 % 10/03/18 06:16 Myelocytes % 1.0 % 10/03/18 06:16 Absolute Neutrophils 21.20 k/cumm (1.2-6.7) H 10/03/18 06:16 Absolute Lymphocytes 2.02 k/cumm (1.2-3.4) 10/03/18 06:16 Absolute Monocytes 0.76 k/cumm (0.11-0.7) H 10/03/18 06:16 Absolute Eosinophils 0.00 k/cumm (0.0-0.7) 10/03/18 06:16 Absolute Basophils 0.00 k/cumm (0.0-0.2) 10/03/18 06:16 Differential Comment Manual differential 10/03/18 06:16 RBC Morphology See below 10/03/18 06:16 Polychromasia Present 10/03/18 06:16 Hypochromasia 2+ 10/03/18 06:16 Poikilocytosis 1+ 10/03/18 06:16 Anisocytosis 1+ 10/03/18 06:16 Microcytosis 2+ 10/03/18 06:16 Sodium 132 mmol/L (136-145) L 10/03/18 06:16 Potassium 4.9 mmol/L (3.5-5.1) D 10/03/18 06:16 Chloride 98 mmol/L (98-107) 10/03/18 06:16 Carbon Dioxide 26.7 mmol/L (21.0-32.0) 10/03/18 06:16 Anion Gap 7.3 mmol/L (3-11) 10/03/18 06:16 BUN 34 mg/dL (7-18) H 10/03/18 06:16 Creatinine 0.89 mg/dL (0.55-1.02) 10/03/18 06:16 Estimated GFR/1.73 m2 >= 60.00 (mL/min/1.73m2) 10/03/18 06:16 Glucose 164 mg/dL (70-100) H 10/03/18 06:16 Hemoglobin A1c 6.4 % (4.5-6.2) H 10/01/18 09:55 Lactate 1.0 mmol/l (0.6-1.4) 10/01/18 11:04 Calcium 8.7 mg/dL (8.5-10.1) 10/03/18 06:16 Magnesium 1.7 mg/dL (1.8-2.4) L 10/03/18 06:16 Total Bilirubin 0.6 mg/dL (0.2-1.0) 10/01/18 09:55 AST 32 U/L (15-37) 10/01/18 09:55 ALT 21 U/L (12-78) 10/01/18 09:55 Alkaline Phosphatase 186 U/L (46-116) H 10/01/18 09:55 Ammonia < 10 umol/L (11-32) L 10/01/18 14:10 Troponin I < 0.02 ng/mL (0.00-0.06) 10/01/18 09:55 NT-Pro-B Natriuret Pep 354 pg/mL (-299) H 10/01/18 09:55 Total Protein 7.1 g/dL (6.4-8.2) 10/01/18 09:55 Albumin 2.0 g/dL (3.4-5.0) L 10/01/18 09:55 Path Cons Comment See comment 10/02/18 06:46 CXR: Stable infiltrates, greatest in the right lower lobe.
[2018-10-03] MEDS: Nicotine 14 MG/24 HR PATCH TD (21:38)
[2018-10-03] MEDS: PIPERACILLIN/TAZO 3.375 GM in Normal Saline 50 ML IVPB (21:38)
[2018-10-03] MEDS: Mirtazapine 15 MG TAB 30 MG PO (21:39)
[2018-10-04] VITALS (8 sets, daily range): BP systolic 102–125; BP diastolic 67–82; PULSE 64–98; RESP 1–24; TEMP 37–37.5; O2SAT 89–95
[2018-10-04] MEDS: PIPERACILLIN/TAZO 3.375 GM in Normal Saline 50 ML IVPB ×3 (01:15→14:32)
[2018-10-04] MEDS: Albuterol/Ipratropium 3 ML UPD VIAL UPD ×3 (01:15→12:05)
[2018-10-04] MEDS: methylPREDNISolone SUCC 125 MG VIAL 60 MG IVP ×2 (01:15→09:45)
[2018-10-04] MEDS: Normal Saline Flush 10 ML SYR IVP ×3 (07:25→16:43)
[2018-10-04] MEDS: Furosemide 20 MG/2 ML VIAL 40 MG IVP ×2 (07:25→16:43)
[2018-10-04] MEDS: DOXYCYCLINE 100 MG in Normal Saline 100 ML IVPB (07:34)
[2018-10-04] MEDS: Budesonide/Formoterol 160/4.5 6 GM 60 PUFF INH IH (07:37)
[2018-10-04] MEDS: Pantoprazole 40 MG TABCR PO (07:37)
[2018-10-04 07:39] LABS: Abs Immature Grans 1.83 k/cumm (0.0-0.09); Mean Corp. HGB Concentration 33.3 g/dL (32.0-36.0); Mean Corpuscular Hemoglobin 24.6 pg (27.0-33.0); Mean Corpuscular Volume 73.8 fL (80-95); Mean Platelet Volume 9.9 fL (8.0-11.0); RBC 4.88 m/cumm (4.00-5.20); RBC Distribution Width 16.8 % (11.7-14.6); White Blood Cell Count 23.39 k/cumm (4.4-10.8)
[2018-10-04 07:45] LABS: Anion Gap 11.8 mmol/L (3-11); BUN 34 mg/dL (7-18); CO2 22.2 mmol/L (21.0-32.0); CREATININE 0.88 mg/dL (0.55-1.02); Calcium 8.6 mg/dL (8.5-10.1); Chloride 94 mmol/L (98-107); Glucose 154 mg/dL (70-100); Magnesium 1.5 mg/dL (1.8-2.4); Potassium 4.6 mmol/L (3.5-5.1); Sodium 128 mmol/L (136-145)
[2018-10-04] MEDS: Methadone Liquid 10 MG/ML 75 MG PO (08:15)
[2018-10-04] MEDS: Spironolactone 25 MG TAB PO (08:15)
[2018-10-04] MEDS: Calcitriol 0.25 MCG CAP 0.5 MCG PO (08:15)
[2018-10-04] MEDS: buPROPion-XL 150 MG TABCR 300 MG PO (08:16)
[2018-10-04] MEDS: Gabapentin 300 MG CAP PO ×2 (08:16→13:18)
[2018-10-04] MEDS: Lisinopril 10 MG TAB PO (08:16)
[2018-10-04] MEDS: guaiFENesin 600 MG TABCR PO (08:16)
[2018-10-04] MEDS: Magnesium Chloride 64 MG TABCR PO (08:16)
[2018-10-04] MEDS: Benzonatate 200 MG CAP PO ×2 (08:16→13:18)
[2018-10-04] MEDS: Insulin Aspart 300 UNITS/3 ML PEN SC ×2 (08:18→17:07)
[2018-10-04 08:24] LABS: Absolute Lymphocyte Count 1.64 k/cumm (1.2-3.4); Absolute Neutrophil Count 19.65 k/cumm (1.2-6.7); Platelet Count 389 x1000/uL (130-400)
[2018-10-04 08:25] LABS: Absolute Monocyte Count 1.17 k/cumm (0.11-0.7); Anisocytosis 1+; Diff Comment Manual Differential
[2018-10-04 08:26] LABS: Microcytosis 2+; Poikilocytes 1+
[2018-10-04] MEDS: Magnesium Oxide 400 MG TAB PO (09:33)
[2018-10-04] MEDS: MAGNESIUM SULFATE 4 GM/100 ML BAG IVPB (12:17)
[2018-10-04] MEDS: Normal Saline 500 ML IV (12:17)
--- NOTE | 2018-10-04 14:32 | PT.INTREAT ---
Date of service: 10/04/18 Time of Service: 14:32 PT Notes 10/04/18 SUBJECTIVE: Kiar stating she is fatigued this morning. She did not get a good night sleep. OBJECTIVE: Supine in bed. Agreeable to PT treatment. TRANSFERS Supine to sit: I Sit to supine: I Sit to stand: S Stand to sit: S GAIT Device: No device Weight bearing: Full Assist: SBA Distance: 50'+100' Deviation: 1 sit rest break, Forward slumped posturing during gait due to scoliosis. VITALS: 90-97% throughout. ASSESSMENT: Pt becomes fatigued quickly this morning requiring sit rest break but was able to recover and continue to walk. Pt declined bed exercises this AM. PLAN: Continue current POC progressing toward's established goals. Treatment time: 15 minutes [id number] Reyna Vieira, EXERCISE EQUIPMENT REPAIR TECHNICIAN
--- NOTE | 2018-10-04 14:37 | PTTR_ITS ---
Date of service: 10/04/18 Time of Service: 14:32 PT Notes 10/04/18 SUBJECTIVE: Kira stating she is fatigued this morning. She did not get a good night sleep. OBJECTIVE: Supine in bed. Agreeable to PT treatment. TRANSFERS Supine to sit: I Sit to supine: I Sit to stand: S Stand to sit: S GAIT Device: No device Weight bearing: Full Assist: SBA Distance: 50'+100' Deviation: 1 sit rest break, Forward slumped posturing during gait due to scoliosis. VITALS: 90-97% throughout. ASSESSMENT: Pt becomes fatigued quickly this morning requiring sit rest break but was able to recover and continue to walk. Pt declined bed exercises this AM. PLAN: Continue current POC progressing toward's established goals. Treatment time: 15 minutes [id number] Reyna Vieira, QUALITY ASSURANCE SUPERVISOR
[2018-10-04 14:46] LABS: Anion Gap 9.4 mmol/L (3-11); BUN 35 mg/dL (7-18); CO2 26.6 mmol/L (21.0-32.0); CREATININE 1.09 mg/dL (0.55-1.02); Calcium 9.1 mg/dL (8.5-10.1); Chloride 92 mmol/L (98-107); Estimated GFR 51.03 (mL/min/1.73m2); Glucose 180 mg/dL (70-100); Potassium 4.8 mmol/L (3.5-5.1); Sodium 128 mmol/L (136-145)
--- NOTE | 2018-10-04 15:35 | CMPROGNOTE_ITS ---
Care Management Progress Note S/O: Kira was lying in bed when CM met with her, she remains pleasant in interaction and verbalized understanding of her clinical needs and plan. She also shared concerns around coordination of last dose letter to [facility] upon discharge; CM assured Kira that this director underwriter sales could support coordination of the letter and drafted the letter for use in CM [facility]. Kira shared concerns throughout the day around updates on discharge plan. CM attempted to receive determination from MD throughout the day. ELIZABETH spoke with [facility] [place] who reported they could only deliver until 1700. CM will continue to follow. A: 63 year old female admitted to [facility] 10/01/18 for Acute Exacerbation fo COPD with Hypoxia P: Kira will return home, resume supports including daily [facility] dosing (CM will coordinate last dose letter) via RCT, MOW, outpatient counseling and follow up with her PCP. Kira will transport via private vehicle with a friend, her n ew Nebulizer through [facility] [place] will be delivered when Kira arrives home.
--- NOTE | 2018-10-04 15:40 | CHAPLAIN ---
Kira was sitting up in bed when I visited. We talked about remembering, and missing, he Sherwin who worked at [employer] in Environmental Services and a few years ago. Kira said she is being discharged but is still waiting for paperwork to be completed. She is concerned about getting equipment from [facility] that she needs, but won't be home to receive before 5 p.m. She said her Transport Company Manager, Roselia Frank is working with her to figure this out.
[2018-10-04 16:13] LABS: Streptococcus Pneumoniae Ag, U Negative (Negative)
--- NOTE | 2018-10-04 16:48 | DSE_ITS ---
Date of service: 10/04/18 Time of Service: 16:45 DS: Diagnosis Discharge Diagnosis (1) CAP (community acquired pneumonia): Status: Acute (2) COPD with acute exacerbation: Status: Acute (3) Cirrhosis of liver: Status: Chronic (4) Fluid overload: Status: Acute (5) Anxiety and depression: Status: Chronic (6) Diabetes: Status: Chronic (7) Essential hypertension: Status: Chronic (8) Tobacco abuse: Status: Chronic (9) GERD (gastroesophageal reflux disease): Status: Chronic (10) Opioid dependence on agonist therapy: Status: Chronic (11) Hypokalemia: Status: Acute (12) H/O supraventricular tachycardia: Status: Acute (13) Hypomagnesemia: Status: Acute (14) Hyponatremia: Status: Acute Discharge Plan Disposition Patient Disposition: HOME Condition: Serious Discharge Details Reason For Visit: ACUTE EXACERBATION OF COPD WITH HYPOXIA,CAP Admit Date/Time: 10/01/18 11:07 Admit Provider: Sujata Zimmer Attending Provider: Sujata Zimmer Primary Care Provider: Kirsten Friedman [facility] Hospital Course: Ms Odonnell is a 63 year old feale with PMHx of non-oxygen dependent COPD, cirrhosis due to Hepatitis C, h/o polysubstance abuse, on chronic methadone therapy through [facility], admitted to [facility] on 10/01/18 for CAP, acute exacerbation of COPD, hypokalemia and hypomagnesemia. Her pneumonia and COPD exacerbation were treated with zosyn and doxycycline, as well as systemic and inhaled corticosteroids, nebs and antitussives. We do feel that some of the patient's symptoms also had to do with fluid overload. In light of this, her HCTZ was changed to lasix, and she received her diuresis intravenously. She was maintained on aldactone. We continued the patient's methadone. On the day of discharge, she states she is feeling great. She feels ready to go home. She is going to have to follow up with her PCP in 1-2 weeks. We ask that she obtain bloodwork to monitor her sodium (it is 128 on the day of discharge, dilutional) and kidney function in 1 week. She will need to get an outpatient echocardiogram. She will be going home with magnesium supplementation as well. She will need to complete 3 more days of antibiotics (doxycycline, augmentin) due to her history of underlying lung disease. She will need to have an outpatient CXR to document clearance of her infection. She will need to complete a steroid taper. Home Meds and New Rx's Prescriptions: New ipratropium-albuterol 0.5 mg-3 mg(2.5 mg base)/3 mL Solution For Nebulization 3 ml UPD Q6H PRN PRN (Reason: shortness of breath or wheezing) Qty: 90 RF: 0 spironolactone 25 mg Tablet 50 mg PO BID Qty: 60 RF: 0 benzonatate 200 mg Capsule 200 mg PO TID PRN PRNQty: 30 RF: 0 pantoprazole 40 mg Tablet,Delayed Release (Dr/Ec) 40 mg PO DAILY@0730 Qty: 30 RF: 0 magnesium chloride [Mag 64] 64 mg Tablet,Delayed Release (Dr/Ec) 128 mg PO BID Qty: 120 RF: 0 guaifenesin [Mucinex] 600 mg Tablet Extended Release 12hr 600 mg PO BID PRN PRNQty: 60 RF: 0 doxycycline hyclate 100 mg capsule 100 mg PO BID Qty: 7 RF: 0 amoxicillin-pot clavulanate [Augmentin] 875-125 mg tablet 1 tab PO BID Qty: 7 RF: 0 furosemide [Lasix] 40 mg tablet 40 mg PO BID Qty: 14 RF: 0 prednisone 20 mg tablet See Rx Instructions .ROUTE .COMPLEX Qty: 16 RF: 0 Continued gabapentin 300 mg capsule 300 mg PO TID Qty: 90 RF: 3 calcitriol 0.5 mcg capsule 0.5 mcg PO DAILY Qty: 30 RF: 5 methadone 10 mg/mL concentrate 75 mg PO DAILY RF: 0 compressor, for nebulizer device .ROUTE .MEDSUPPLY Qty: 1 RF: 0 polyethylene glycol 3350 [Miralax] 17 GM powder in packet 17 g PO DAILY PRNRF: 0 triamcinolone acetonide 15 GM cream 1 lorraine Topical TID PRNQty: 30 RF: 2 ibuprofen 200 MG capsule 400 mg PO q8h PRN PAIN Qty: 200 RF: 1 lisinopril 10 MG tablet 10 mg PO DAILY Qty: 30 RF: 11 mirtazapine 30 mg tablet 30 mg PO HS Qty: 30 RF: 11 bupropion HCl 300 mg tablet extended release 24 hr 300 mg PO DAILY Qty: 90 RF: 3 hydroxyzine pamoate 50 mg capsule 50 mg PO QID PRN (Reason: anxiety) Qty: 60 RF: 0 albuterol sulfate [ProAir HFA] 90 mcg/actuation HFA aerosol inhaler 1 - 2 puff Inhalation Q6H PRN PRN (Reason: bronchospasm) Qty: 3 RF: 1 albuterol sulfate 2.5 mg /3 mL (0.083 %) solution for nebulization 2.5 mg IH Q4H PRNRF: 0 Discontinued spironolactone [Aldactone] 25 MG tablet 25 mg PO BID Qty: 180 RF: 4 hydrochlorothiazide 25 MG tablet 25 mg PO DAILY Qty: 90 RF: 3 No Action albuterol sulfate 2.5 mg /3 mL (0.083 %) solution for nebulization 2.5 mg Continuous Nebulization Q4H PRN (Reason: shortness of breath or wheezing) Qty: 180 RF: 1 Discharge Instructions Instructions: Furosemide (By mouth), Doxycycline (By mouth), Prednisone (By mouth), Amoxicillin/Clavulanate Potassium (By mouth), How to Stop Smoking (DC), Hyponatremia (DC), COPD (Chronic Obstructive Pulmonary Disease) (DC), Bacterial Pneumonia (DC) Additional Instructions: Finish your antibiotics and steroids as prescribed. Return to the hospital with any fever, bleeding, chest pain, or shortness of breath. You must try to stop smoking. Stand Alone Forms: Nursing Discharge Form Referrals: Kirsten Friedman DO [Primary Care Provider] - Activity:: Activity as Tolerated Equipment/Supplies:: No Equipment Needed Diet:: Low Sodium Discharge Orders Discharge Orders: Discharge Order (Routine); Ordered 10/04/18 Ordered By: Sujata Zimmer Other Ambulatory Orders: Basic Metabolic Panel (Routine) Timeframe: 1 Week Facility: [facility] - Location: Laboratory Outpatient Ordered By: Sujata Zimmer Complete Blood Count w/Diff (Routine) Timeframe: 1 Week Facility: [facility] - Location: Laboratory Outpatient Ordered By: Sujata Zimmer US echocardiogram (Routine) Timeframe: 1 Week Facility: [facility] - Location: DIAGNOSTIC IMAGING DEPT Ordered By: Sujata Zimmer Magnesium (Routine) Timeframe: 1 Week Facility: [facility] - Location: Laboratory Outpatient Ordered By: Sujata Zimmer Exam Narrative Exam Narrative: General: very pleasant middle-aged female, sitting up comfortably in her bed, no tachypnea/dyspnea noted on room air HEENT: EOMI, MMM Heart: RRR, no m/r/g Lungs: expiratory squeak on the L; very few crackles heard - aeration significantly improved from yesterday GI: abdomen is soft, nontender, nondistended, + mild ascites Extremities: trace edema BLE, no clubbing/cyanosis DS: Data Vitals/I&O Vitals and I&O: Vital Signs Temperature 37 C 10/04/18 11:18 Temperature Source Tympanic 10/04/18 11:18 Pulse 75 10/04/18 11:18 Pulse Rhythm Regular 10/04/18 07:41 Pulse 92 H 10/01/18 12:01 Respiratory Rate 20 10/04/18 11:18 Respiratory Effort Non-Labored 10/04/18 07:41 Respiratory Depth Normal 10/04/18 07:41 Respiratory Pattern Normal 10/04/18 07:41 Blood Pressure 102/67 10/04/18 11:18 Blood Pressure Mean 83 10/01/18 11:45 Blood Pressure Position Sitting 10/01/18 09:24 Pulse Oximetry 91 L 10/04/18 11:18 Oxygen Delivery Method Room Air 10/04/18 11:18 Oxygen Flow Rate 0 10/04/18 11:18 Pain Level 5 10/04/18 08:15 Comment 10/02/18 07:30 Intake & Output 10/03/18 10/04/18 10/04/18 23:59 11:59 23:59 Intake Total 630 / 970 230 / 513.333 283.333 / 513.333 Output Total 2100 / 3750 2450 / 2450 Balance -1470 / -2780 -2220 / -1936.667 283.333 / -1936.667 Weight 49.7 kg Intake: IV 210 / 310 230 / 333.333 103.333 / 333.333 Oral 420 / 660 0 / 180 180 / 180 Output: Urine 2100 / 3750 2450 / 2450 Other: Urine Color Yellow Pale Urine Appearance Clear Clear Urine Odor Normal None Comment patient voided large amount in toilet but missed the measuring device Stool Size Small Stool Characteristics Formed Hard Brown Voiding Methods Toilet Toilet Completed studies during hospitalization [Text1]: CXR 10/01/18: Bilateral infiltrates. Mild underlying fibrotic changes. CXR 10/03/18: Stable infiltrates, greatest in the right lower lobe. Labs on day of discharge: Labs from last 24 hours 10/04/18 10/04/18 10/04/18 14:05 06:45 06:45 WBC 23.39 H RBC 4.88 Hgb 12.0 Hct 36.0 MCV 73.8 L MCH 24.6 L MCHC 33.3 RDW 16.8 H Plt Count 389 MPV 9.9 Immature Gran % See Differential Neutrophils % 80.0 Band Neutrophils % 4.0 Lymphocytes % 7.0 Monocytes % 5.0 Eosinophils % 0.0 Basophils % 0.0 Myelocytes % 4.0 Absolute Neutrophils 19.65 H Absolute Lymphocytes 1.64 Absolute Monocytes 1.17 H Absolute Eosinophils 0.00 Absolute Basophils 0.00 Differential Comment Manual differential RBC Morphology See below Poikilocytosis 1+ Anisocytosis 1+ Microcytosis 2+ Sodium 128 L 128 L Potassium 4.8 4.6 Chloride 92 L 94 L Carbon Dioxide 26.6 22.2 Anion Gap 9.4 11.8 H BUN 35 H 34 H Creatinine 1.09 H 0.88 Estimated GFR/1.73 m2 51.03 >= 60.00 Glucose 180 H 154 H Calcium 9.1 8.6 Magnesium 1.5 L Legionella Source Legionella Reprt Status Legionella Final Result Ur Strep pneumoniae Ag 10/03/18 11:01 WBC RBC Hgb Hct MCV MCH MCHC RDW Plt Count MPV Immature Gran % Neutrophils % Band Neutrophils % Lymphocytes % Monocytes % Eosinophils % Basophils % Myelocytes % Absolute Neutrophils Absolute Lymphocytes Absolute Monocytes Absolute Eosinophils Absolute Basophils Differential Comment RBC Morphology Poikilocytosis Anisocytosis Microcytosis Sodium Potassium Chloride Carbon Dioxide Anion Gap BUN Creatinine Estimated GFR/1.73 m2 Glucose Calcium Magnesium Legionella Source (see note) Legionella Reprt Status (see note) Legionella Final Result (see note) Ur Strep pneumoniae Ag Negative Preliminary micro results at discharge 10/01/18 11:15 Blood Culture - Preliminary Blood NO GROWTH 72 HOURS 10/01/18 11:04 Blood Culture - Preliminary Blood NO GROWTH 72 HOURS [facility] Medical History Essential hypertension (Chronic) Acute right-sided low back pain without sciatica (Acute 06/08/17) Shortness of breath (Acute) Abnormal CT of the chest (Acute 03/18/17) Acute renal failure (Resolved 04/29/14) Spinal stenosis (Chronic) Cirrhosis of liver (Chronic) Anxiety and depression (Chronic) Diabetes (Chronic) COPD (chronic obstructive pulmonary disease) (Chronic) Tobacco abuse (Chronic) Hypertension (Chronic) Bilateral pneumonia (Acute 04/29/14) Pleuritic chest pain (Acute 04/29/14) 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) Polysubstance abuse (Chronic) Methadone dependence (Chronic) Neuropathy of right radial nerve (Chronic) COPD (chronic obstructive pulmonary disease) Cirrhosis Diabetes mellitus HTN (hypertension) Hepatitis C Tobacco use disorder Surgical History Appendectomy (01/30/07) Family History Mother Myocardial infarction Stroke Sister Diabetes Myocardial infarction Sister Diabetes Father Diabetes Alcohol abuse Myocardial infarction Social History Smoking/Tobacco Use Status: Current-Occasional Tobacco Type: cigarettes Alcohol Intake: never Drug use: Never Substance use type: does not use Adopted: No Household members: none Housing: house Pets and animals: Yes Pets and animals: cat(s) What is your relationship status?: Panel score (0-1 are the most socially isolated patients): 0 What type of physical activity do you participate in: none Seatbelt use: always Drive intox or ride w/intox motor pool driver: No Working smoke detector in home: Yes Fire extinguisher in home: Yes Carbon monox detector in home: Yes Do you feel safe at home: Yes Do you feel safe in your relationship?: Yes
[2018-10-04 23:40] LABS: Mycoplasma Pneumoniae PCR Negative; Specimen source SPUTUM
--- NOTE | 2018-10-06 16:51 | PT.INDS ---
Date of service: 10/04/18 Time of Service: 13:43 PT Notes Inpatient Physical Therapy Discharge Summary Dates: 10/04/2018 Dates of Service: 10/02/2018 through 10/04/2018 Referring Doctor: Carlene Virk NP PT Orders: PT CONSULT:Eval and treat Precautions: Fall. Standard. Patient Profile/Admitting Diagnosis: Presented to ER on 10/01 due to SOB developing over 2-3 weeks. Confirmed community acquired pneumonia in ER, with admission required for proper treatment. 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 Has a neighbor who looks in on her. No supportive family. 3 steps with rail to enter. Current Functional Limitations: SOB with short distance ambulation, O2 dependent. Equipment Owned/DME: None Premorbid level of function: Independent, able to lift light to moderate objects, cleans her own home, relies on [facility] for transportation to [facility] daily for methadone. Subjective: Patient looks forward to going home later this afternoon. Receptive of HEP given to her today. Objective: General Observation: Patient seen seated at edge of bed, with oxygen supplementation via nasal canula, IV still in L cubital fossa Mental Status: A & O x3 Pain: 0/10 ROM: Right Upper Extremity: WFL Left Upper Extremity: WFL Right Lower Extremity: WFL Left Lower Extremity: WFL Strength: Right Upper Extremity: Grossly WFL Left Upper Extremity: Grossly WFL Right Lower Extremity: Grossly WFL Left Lower Extremity: Grossly WFL Endurance: POOR, only tolerating 45 ft with O2 support, due to SOB. Sensation: Intact as to pain and pressure to bilateral LEs BED MOBILITY LEVELS/TRANSFERS: Rolling dependence Supine to sit independent Sit to supine independent Sit to stand supervision Stand to sit supervision Bed to chair supervision Chair to bed supervision Gait: Patient tolerated 75 feet x 2 of level surface ambulation while holding onto IV pole one way and without assistance going back with oxygen saturation staying above 90% on room air, SBA assist provided. Balance: Static Sitting: Good Dynamic Sitting: Good Static Standing: Good Dynamic Standing: Fair Special Tests: Mobility Limitations Standardized Measure [facility] AM-PAC 6 clicks Basic Mobility Inpatient Short Form: Raw Score: 22 CMS Score: 20% disabiltiy Assessment: Patient is a 63 year old female referred to physical therapy services with the diagnosis of deconditioning, secondary to community aquired penumonia and exacerbation of COPD. Patient presents with clinical signs and symptoms consistent with SOB and O2 dependence, as demonstrated by the following impairment level findings: SOB, O2 dependence, supervision required for ambulation. Impairments are contributing to the following functional limitations: AMPA score 20% disability, unable to ambulate beyond 45 ft without supervision and 1L02 support due to SOB, quick fatigue with basic functional activities. Goals: Goals X1 week 1. Supine-Sit I MET 2. Sit-Supine I MET 3. Sit-Stand I MET 4. Stand-Sit I NOT MET 5. Bed-Chair I NOT MET 6. Chair-Bed I NOT MET 7. Gait I, household distance no O2 support MET 8. Stairs 3, I, no O2 support. NOT MET DISCHARGE RECOMMENDATIONS: Home. Outpatient PT for continued conditioning if physical limitations demand. TREATMENT CODE/TIME: 21745 24 minutes beginning at 13:43 PM. Thank you for this referral. Lisa Baum, PT, DPT, CLT [facility]
--- NOTE | 2018-10-06 17:00 | INDS_ITS ---
Date of service: 10/04/18 Time of Service: 13:43 PT Notes Inpatient Physical Therapy Discharge Summary Dates: 10/04/2018 Dates of Service: 10/02/2018 through 10/04/2018 Referring Doctor: Carlene Virk NP PT Orders: PT CONSULT:Eval and treat Precautions: Fall. Standard. Patient Profile/Admitting Diagnosis: Presented to ER on 10/01 due to SOB developing over 2-3 weeks. Confirmed community acquired pneumonia in ER, with admission required for proper treatment. 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 Has a neighbor who looks in on her. No supportive family. 3 steps with rail to enter. Current Functional Limitations: SOB with short distance ambulation, O2 dependent. Equipment Owned/DME: None Premorbid level of function: Independent, able to lift light to moderate objects, cleans her own home, relies on [facility] for transportation to [facility] daily for methadone. Subjective: Patient looks forward to going home later this afternoon. Receptive of HEP given to her today. Objective: General Observation: Patient seen seated at edge of bed, with oxygen supplementation via nasal canula, IV still in L cubital fossa Mental Status: A & O x3 Pain: 0/10 ROM: Right Upper Extremity: WFL Left Upper Extremity: WFL Right Lower Extremity: WFL Left Lower Extremity: WFL Strength: Right Upper Extremity: Grossly WFL Left Upper Extremity: Grossly WFL Right Lower Extremity: Grossly WFL Left Lower Extremity: Grossly WFL Endurance: POOR, only tolerating 45 ft with O2 support, due to SOB. Sensation: Intact as to pain and pressure to bilateral LEs BED MOBILITY LEVELS/TRANSFERS: Rolling dependence Supine to sit independent Sit to supine independent Sit to stand supervision Stand to sit supervision Bed to chair supervision Chair to bed supervision Gait: Patient tolerated 75 feet x 2 of level surface ambulation while holding onto IV pole one way and without assistance going back with oxygen saturation staying above 90% on room air, SBA assist provided. Balance: Static Sitting: Good Dynamic Sitting: Good Static Standing: Good Dynamic Standing: Fair Special Tests: Mobility Limitations Standardized Measure [facility] AM-PAC 6 clicks Basic Mobility Inpatient Short Form: Raw Score: 22 CMS Score: 20% disabiltiy Assessment: Patient is a 63 year old female referred to physical therapy services with the diagnosis of deconditioning, secondary to community aquired penumonia and exacerbation of COPD. Patient presents with clinical signs and symptoms consistent with SOB and O2 dependence, as demonstrated by the following impairment level findings: SOB, O2 dependence, supervision required for ambulation. Impairments are contributing to the following functional limitations: AMPA score 20% disability, unable to ambulate beyond 45 ft without supervision and 1L02 support due to SOB, quick fatigue with basic functional activities. Goals: Goals X1 week 1. Supine-Sit I MET 2. Sit-Supine I MET 3. Sit-Stand I MET 4. Stand-Sit I NOT MET 5. Bed-Chair I NOT MET 6. Chair-Bed I NOT MET 7. Gait I, household distance no O2 support MET 8. Stairs 3, I, no O2 support. NOT MET DISCHARGE RECOMMENDATIONS: Home. Outpatient PT for continued conditioning if physical limitations demand. TREATMENT CODE/TIME: 56972 24 minutes beginning at 13:43 PM. Thank you for this referral. Lisa Baum, PT, DPT, CLT [facility]
== END 2018-10-04 18:35 | disposition home or self-care (01) | DRG 190 ==
LOC: ER 11:41 → MS 12:23
PROVIDERS: Nurse Practitioner Family; Admitting Provider Internal Medicine; Emergency Provider Student in an Organized Health Care Education/Training Program; PCP Student in an Organized Health Care Education/Training Program; Visit Provider Internal Medicine
DX: J44.0 Chronic obstructive pulmonary disease with (acute) lower respiratory infection (principal); J18.9 Pneumonia, unspecified organism; J98.11 Atelectasis; E87.1 Hypo-osmolality and hyponatremia; J44.1 Chronic obstructive pulmonary disease with (acute) exacerbation; R09.02 Hypoxemia; K74.69 Other cirrhosis of liver; F41.8 Other specified anxiety disorders; E83.42 Hypomagnesemia; E87.6 Hypokalemia; I10 Essential (primary) hypertension; E11.9 Type 2 diabetes mellitus without complications; K21.9 Gastro-esophageal reflux disease without esophagitis; R60.0 Localized edema; F11.21 Opioid dependence, in remission; F17.210 Nicotine dependence, cigarettes, uncomplicated; Z86.19 Personal history of other infectious and parasitic diseases; Z71.3 Dietary counseling and surveillance
CPT/HCPCS: 36410; 36415; 36416; 80048; 80053; 82962; 87040; 87449; 94640; 96365; 97110; 97162; 97165; 97530; 99223; 99232; 99233; 99239; 99285; J1650; 71045; 71046; 82140; 83036; 83605; 83735; 83880; 84132; 84484; 85025; 87070; 87205; 87450; 87581; 99284; J0696; J1940; J1941; J2543; J2930; J3475; J3490; J7620

== ENCOUNTER 2018-10-18 20:01 | Outpatient (REF) | payer MEDICARE, MEDICAID, SELFPAY ==
[2018-10-18 20:40] LABS: Abs Immature Grans 0.18 k/cumm (0.0-0.09); Absolute Lymphocyte Count 1.53 k/cumm (1.2-3.4); Absolute Monocyte Count 0.89 k/cumm (0.11-0.7); Absolute Neutrophil Count 12.49 k/cumm (1.2-6.7); Basophils % 0.4; Eosinophils % 2.8; HCT 35.6 % (36.0-46.0); HGB 11.1 g/dL (12.0-15.5); Immature Grans % 1.2; Lymphocytes % 9.8; Mean Corp. HGB Concentration 31.2 g/dL (32.0-36.0); Mean Corpuscular Volume 80.2 fL (80-95); Mean Platelet Volume 11.7 fL (8.0-11.0); Monocytes % 5.7; Neutrophils % 80.1; Platelet Count 361 x1000/uL (130-400); RBC 4.44 m/cumm (4.00-5.20); RBC Distribution Width 18.7 % (11.7-14.6); White Blood Cell Count 15.59 k/cumm (4.4-10.8)
[2018-10-18 20:45] LABS: Anion Gap 8.2 mmol/L (3-11); BUN 17 mg/dL (7-18); CO2 29.8 mmol/L (21.0-32.0); Calcium 9.7 mg/dL (8.5-10.1); Chloride 97 mmol/L (98-107); Glucose 106 mg/dL (70-100); Magnesium 1.3 mg/dL (1.8-2.4); Potassium 5.2 mmol/L (3.5-5.1); Sodium 135 mmol/L (136-145)
[2018-10-18 20:47] LABS: Absolute Basophil Count 0.06 k/cumm (0.0-0.2); Absolute Eosinophil Count 0.44 k/cumm (0.0-0.7)
[2018-10-18 20:49] LABS: ALT 25 U/L (12-78); AST 18 U/L (15-37); Albumin 3.1 g/dL (3.4-5.0); Alkaline Phosphatase 104 U/L (46-116); Bilirubin, Total 0.2 mg/dL (0.2-1.0)
== END 2018-10-18 20:21 ==
LOC: LBN 20:01
PROVIDERS: Internal Medicine; PCP Student in an Organized Health Care Education/Training Program; Visit Provider Student in an Organized Health Care Education/Training Program
DX: E87.70 Fluid overload, unspecified (principal); K74.60 Unspecified cirrhosis of liver; E83.42 Hypomagnesemia; E87.6 Hypokalemia; E87.1 Hypo-osmolality and hyponatremia; J18.9 Pneumonia, unspecified organism
CPT/HCPCS: 80048; 80076; 83735; 85025

== ENCOUNTER 2018-10-24 00:59 | Outpatient (CLI) | payer MEDICARE, MEDICAID, SELFPAY ==
--- NOTE | 2018-10-24 13:30 | MERGE_ITS ---
*[facility]* *[facility]* [address] [place] [address] Date of study: 10/24/2018 Transthoracic Echocardiography M-mode, complete 2D, complete spectral Doppler, and color Doppler *STUDY CONCLUSIONS* Summary: 1. Left ventricle: The cavity size was normal. Wall thickness was normal. Systolic function was vigorous. The estimated ejection fraction was 65-70%. Wall motion was normal; there were no regional wall motion abnormalities. 2. Right ventricle: The cavity size was normal. Systolic function was normal. 3. Inferior vena cava: The vessel was patent and normal in size. The respirophasic diameter changes were in the normal range (greater than or equal to 50%), consistent with normal central venous pressure. *PATIENT PRESENTATION* Height: 147.3cm ((58in) ) S/D Pressure: 116 / 66 Weight: 51.3kg ((112.8lb) ) BSA: 1.46m^2 Test start time: 01:45 PM. Test stop time: 02:50 PM. PERFORMING Unknown PERFORMING [facility] END FINDER FORMING DEPARTMENT RT Florina Adam)(CT), [facility] CONSULTING Kirsten Friedman Yelena A REFERRING Kogan, Yelena A *PROCEDURE DATA* Procedure information: The patient was identified by two identifiers. This study was interpreted by [facility]. Pertinent images and digital data are archived for permanent storage and are available for subsequent review. Comparison was made to the study of 2002. Study status: Routine. Transthoracic echocardiography. M-mode, complete 2D, complete spectral Doppler, and color Doppler. A Transthoracic Echocardiogram was performed. Scanning was performed from the parasternal, apical, subcostal, and suprasternal notch acoustic windows. Images were obtained using an [id number] cardiac ultrasound machine. Image quality was adequate. Study completion: The patient tolerated the procedure well. There were no complications. History: PMH: Fluid overload E87.70, hypo-osmolality and hyponatremia E87.1. *CARDIAC ANATOMY* Left ventricle: The cavity size was normal. Wall thickness was normal. Systolic function was vigorous. The estimated ejection fraction was 65-70%. Wall motion was normal; there were no regional wall motion abnormalities. Findings consistent with diastolic dysfunction. There was no evidence of elevated ventricular filling pressure by Doppler parameters. Aortic valve: Trileaflet; mildly thickened leaflets. Mobility was not restricted. Doppler: Transvalvular velocity was within the normal range. There was no stenosis. There was no significant regurgitation. VTI ratio of LVOT to aortic valve: 0.65. Valve area (VTI): 1.8cm^2. Indexed valve area (VTI): 1.2cm^2/m^2. Peak velocity ratio of LVOT to aortic valve: 0.67. Valve area (Vmax): 1.9cm^2. Indexed valve area (Vmax): 1.3cm^2/m^2. Mean velocity ratio of LVOT to aortic valve: 0.68. Valve area (Vmean): 1.9cm^2. Indexed valve area (Vmean): 1.3cm^2/m^2. Mean gradient (S): 11.2mm Hg. Peak gradient (S): 20.8mm Hg. Aorta: Aortic root: The aortic root was normal in size. Ascending aorta: The ascending aorta was normal in size. Mitral valve: Mildly thickened leaflets. Mobility was not restricted. Doppler: Transvalvular velocity was within the normal range. There was no evidence for stenosis. There was mild regurgitation. Valve area by pressure half-time: 3.9cm^2. Indexed valve area by pressure half-time: 2.7cm^2/m^2. Peak gradient (D): 3.7mm Hg. Left atrium: The atrium was at the upper limits of normal in size. Right ventricle: The cavity size was normal. Systolic function was normal. Pulmonic valve: The pulmonary valve appears to be grossly normal. Doppler: Transvalvular velocity was within the normal range. There was no evidence for stenosis. There was trivial regurgitation. Tricuspid valve: Structurally normal valve. Doppler: Transvalvular velocity was within the normal range. There was no evidence for stenosis. There was mild regurgitation. Pulmonary artery: The main pulmonary artery was normal-sized. Pulmonary systolic pressure was in the range of 35mm Hg to 40mm Hg. Right atrium: The atrium was normal in size. Pericardium: There was no pericardial effusion. Systemic veins: Inferior vena cava: Well visualized. The vessel was patent and normal in size. The respirophasic diameter changes were in the normal range (greater than or equal to 50%), consistent with normal central venous pressure. Baseline ECG: Normal sinus rhythm. Measurements Left ventricle Value Reference LV ID, ED, PLAX 3.7 cm 3.5 - 6.0 LV ID, ES, PLAX 2.4 cm 2.1 - 4.0 LV PW thickness, ED, PLAX 0.9 cm LV end-diastolic volume, 1-p A2C 54 ml LV ejection fraction, 1-p A2C 63 % LV end-diastolic volume, 1-p A4C 78 ml LV ejection fraction, 1-p A4C 65 % LV e', lateral 0.137 m/sec LV E/e', lateral 7 LV e', medial 0.089 m/sec LV E/e', medial 11 LV e', average 0.113 m/sec LV E/e', average 9 Ventricular septum Value Reference IVS thickness, ED, PLAX 1.0 cm LVOT Value Reference LVOT ID, A-P 1.9 cm LVOT area 2.8 cm^2 LVOT peak velocity, S 1.53 m/sec LVOT mean velocity, S 1.07 m/sec LVOT VTI, S 26.6 cm LVOT peak gradient, S 9.4 mm Hg LVOT mean gradient, S 5.1 mm Hg Stroke volume (SV), LVOT DP 73 ml Stroke index (SV/bsa), LVOT DP 50 ml/m^2 Aortic valve Value Reference Aortic valve peak velocity, S 2.3 m/sec Aortic valve mean velocity, S 1.58 m/sec Aortic valve VTI, S 41.0 cm Aortic mean gradient, S 11.2 mm Hg Aortic peak gradient, S 20.8 mm Hg VTI ratio, LVOT/AV 0.65 Aortic valve area, VTI 1.8 cm^2 Velocity ratio, peak, LVOT/AV 0.67 Aortic valve area, peak velocity 1.9 cm^2 Velocity ratio, mean, LVOT/AV 0.68 Aortic valve area, mean velocity 1.9 cm^2 Aortic valve area/bsa, mean velocity 1.3 cm^2/m^2 Aorta Value Reference Aortic root ID, ED 2.8 cm Ascending aorta ID, A-P, S 2.5 cm Left atrium Value Reference LA ID, A-P, ES 4.3 cm LA ID/bsa, A-P (H) 3.0 cm/m^2 <=2.2 LA area, ES, A4C 19.8 cm^2 8.8 - 23.4 LA area, ES, A2C 17 cm^2 LA volume/bsa, ES, 1-p A4C 44 ml/m^2 LA volume, ES, 2-p 50 ml LA volume/bsa, ES, 2-p 34 ml/m^2 LA/aortic root ratio 1.57 Mitral valve Value Reference Mitral E-wave peak velocity 0.96 m/sec Mitral A-wave peak velocity 0.9 m/sec Mitral deceleration time 193 ms 150 - 230 Mitral pressure half-time 56 ms Mitral peak gradient, D 3.7 mm Hg Mitral E/A ratio, peak 1.07 Mitral valve area, PHT, DP 3.9 cm^2 Pulmonary veins Value Reference Pulmonary vein peak velocity, S 0.57 m/sec Pulmonary vein peak velocity, D 0.43 m/sec Pulmonary vein velocity ratio, peak, 1.32 S/D Pulmonary vein A-wave reversal peak 0.47 m/sec velocity Pulmonary vein A-wave reversal 113 ms duration Tricuspid valve Value Reference Tricuspid regurg peak velocity 3 m/sec Tricuspid peak RV-RA gradient 35.6 mm Hg Right atrium Value Reference RA area, ES, A4C 12.7 cm^2 8.3 - 19.5 Legend: (L) and (H) yady values outside specified reference range. I have personally reviewed the images and have reviewed and edited the reported findings. Electronically signed by Sofya Munoz 10/25/2018 07:19
== END 2018-10-24 01:19 ==
PROVIDERS: PCP Student in an Organized Health Care Education/Training Program; Visit Provider Internal Medicine
DX: E87.1 Hypo-osmolality and hyponatremia (principal); E87.70 Fluid overload, unspecified; I50.9 Heart failure, unspecified; R60.0 Localized edema
CPT/HCPCS: 93306

== ENCOUNTER 2018-10-31 00:18 | Outpatient (CLI) | payer MEDICARE, MEDICAID, SELFPAY ==
--- NOTE | 2018-10-31 11:15 | DI.RAD_ITS ---
SYMPTOMS/DIAGNOSIS: WORSE COUGH, CONTINUED SHORTNESS OF BREATH, R05, R06.02 AP AND LATERAL CHEST: When compared with the previous study of 09/23/2018, again demonstrated are regions of bibasilar infiltration. Allowing for differences in technique, there may be some slight interval clearing. The heart is not enlarged. There is no pleural effusion. 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 SUMMARY: Question slight interval improvement. Additional follow-up images are suggested for further review.
== END 2018-10-31 00:38 ==
PROVIDERS: PCP Student in an Organized Health Care Education/Training Program; Visit Provider Student in an Organized Health Care Education/Training Program
DX: R06.02 Shortness of breath (principal); R05 Cough; R91.8 Other nonspecific abnormal finding of lung field
CPT/HCPCS: 71046

== ENCOUNTER 2018-11-01 13:56 | Outpatient (REF) | payer MEDICARE, MEDICAID, SELFPAY ==
[2018-11-01 21:19] LABS: Anion Gap 10.7 mmol/L (3-11); BUN 17 mg/dL (7-18); CO2 26.3 mmol/L (21.0-32.0); CREATININE 0.72 mg/dL (0.55-1.02); Calcium 8.7 mg/dL (8.5-10.1); Chloride 96 mmol/L (98-107); Glucose 115 mg/dL (70-100); Potassium 4.7 mmol/L (3.5-5.1); Sodium 133 mmol/L (136-145)
== END 2018-11-01 14:16 ==
LOC: LBN 13:56
PROVIDERS: PCP Student in an Organized Health Care Education/Training Program; Visit Provider Student in an Organized Health Care Education/Training Program
DX: E87.5 Hyperkalemia (principal)
CPT/HCPCS: 80048

== ENCOUNTER 2018-12-05 01:04 | Outpatient (CLI) | payer MEDICARE, MEDICAID, SELFPAY ==
--- NOTE | 2018-12-05 12:50 | DI.RAD_ITS ---
SYMPTOM/DIAGNOSIS: F/U PNEUMONIA, J18.9, ACUTE EXAC OF COPD, J44.1, FLUID OVERLOAD, E87.70 PA AND LATERAL CHEST: Comparison is made with 10/31/18. The heart size appears normal. There has been some interval clearing of previously noted bilateral upper and lower lobe infiltrates. There are underlying fibrotic changes. There are old right rib fractures. Scoliosis is noted at the thoracolumbar junction. IMPRESSION: Chronic pulmonary changes, greatest in the lower lobes. There are increased densities in both upper and lower lobes which appear more prominent when compared with 2017 but appear improved when compared with the recent exams.
== END 2018-12-05 01:24 ==
PROVIDERS: PCP Student in an Organized Health Care Education/Training Program; Visit Provider Student in an Organized Health Care Education/Training Program
DX: E87.70 Fluid overload, unspecified (principal); J18.9 Pneumonia, unspecified organism; J44.1 Chronic obstructive pulmonary disease with (acute) exacerbation; J98.4 Other disorders of lung
CPT/HCPCS: 71046

== ENCOUNTER 2019-03-23 12:37 | Outpatient (CLI) | payer MEDICARE, MEDICAID, SELFPAY ==
[2019-03-23 14:30] LABS: ALT 16 U/L (14-59); AST 18 U/L (15-37); Albumin 3.7 g/dL (3.4-5.0); Alkaline Phosphatase 119 U/L (46-116); Anion Gap 9.8 mmol/L (3-11); BUN 19 mg/dL (7-18); Bilirubin, Total 0.3 mg/dL (0.2-1.0); CO2 27.2 mmol/L (21.0-32.0); CREATININE 0.93 mg/dL (0.55-1.02); Calcium 8.3 mg/dL (8.5-10.1); Chloride 102 mmol/L (98-107); Glucose 101 mg/dL (70-100); Potassium 5.2 mmol/L (3.5-5.1); Sodium 139 mmol/L (136-145); Total Protein 7.1 g/dL (6.4-8.2)
== END 2019-03-23 12:57 ==
PROVIDERS: PCP Student in an Organized Health Care Education/Training Program; Visit Provider Student in an Organized Health Care Education/Training Program
DX: E11.9 Type 2 diabetes mellitus without complications (principal); E87.1 Hypo-osmolality and hyponatremia; N18.4 Chronic kidney disease, stage 4 (severe); Z87.19 Personal history of other diseases of the digestive system
CPT/HCPCS: 36415; 80053

== ENCOUNTER 2019-05-21 18:19 | Inpatient (IN) | payer MEDICARE, MEDICAID, SELFPAY ==
[2019-05-21] VITALS (30 sets, daily range): BP systolic 94–122; BP diastolic 63–78; PULSE 98–115; RESP 14–36; TEMP 37.5–38.4; O2SAT 57–95
[2019-05-21] MEDS: Normal Saline Flush 10 ML SYR IVP ×2 (18:35→23:58)
--- NOTE | 2019-05-21 18:46 | ED.GENADUL_ITS ---
Discharge Plan Discharge Details Chief Complaint: SOB Admit Date/Time: 05/21/19 20:02 Admit Provider: Sujata Zimmer Attending Provider: Sujata Zimmer Primary Care Provider: Kirsten Friedman ED Provider: Geovanna Mary Medical Decision Making Patient is 64-year-old female with complex past medical history presenting today with chief complaint of cough and increased shortness of breath. Patient is chronically short of breath and has had an increase in this of the past 48 hours. States she been coughing more than typical. Patient is an active smoker, reports he smokes approximately half a pack a day. She reports that her oxygen is typically 90% on room air when healthy. Has been on home O2 his torically but not needed this recently. Patient was admitted in September of this year for pneumonia and feels that this may be recurrence. Denies any recent travel. No recent antibiotics. States that she does have pain with cough but no chest pain when not actively coughing. Has noted increased swelling in her lower extremities. Reports that she has been taking her medications as prescribed. On exam, patient appears chronically ill. She is not working to breath, no respiratory distress. She was initially 57% on RA but came up rapidly when NC was applied by nursing staff. Currently 88% which is typical for hte patient per her report. She sounds very wet on exam, primarily with expiration. Normal cardiac exam. Abdomen benign. BLE edema and chronic discoloration. 2+ distal pulses. ECG reviewed by Dr. Jarrell, patient in NSR rate of 109 with no acute ischemic changes noted. Patient received duoneb and reports feeling improved. Contacted by lab WBC 25. Patient stably anemic. Contacted by lab, troponin 0.10. BNP 8153, this is up from 352 in September of 2018. Patient sounded very wet on exam, this is likely what is causing her SOB and increased troponin. Plan to give the patient an additional 20 mg IV Lasix. She also appears dry, will give 500cc bolus. Reviewed patient's chest x-ray. She does appear to be in active CHF. However, I am noting an area of consolidation in the right lower lobe and questioning if this also may be a pneumonia component which caused The patient's leukocytosis. Patient does appear to have chronic leukocytosis patient has not been elevated like this since her episode of pneumonia last spring. Will begin on abx. Patient returned from imaging, she reported nausea. Gave IV ondansetron. After nausea subsided, patient appears much improved. She had been appearing increased shortness of breath and I was concerned patient may need to go on BiPAP. However, after she was able to calm down the nausea resolved, she appears to be at baseline. 91% once again on NC CXR reviewed by radiologist: FINDINGS: Lungs: Chronic interstitial lung disease. Pleural space: Unremarkable. No pleural effusion. No pneumothorax. Heart/Mediastinum: Increasing bilateral opacifications involving the upper and lower lobes. Stable cardiomediastinal silhouette. Bones/joints: Multilevel degenerative scoliotic changes of the thoracic and lumbar spine. Kyphosis. Suspect old right lateral rib fractures. IMPRESSION: Bilateral pneumonia with greater involvement of the lung bases. Patient started on Levofloxacin. Consulted with Dr. Zimmer who agrees to admission for CHF, pneumonia with elevated troponin. Discussed these findings at length with [facility] patient. AGain encouraged smoking cessation. She is in agreement. Feels improved in NC O2. HPI General Mode of arrival: ambulatory . Date/Time Provider Initiated Documentation: 05/21/19 18:46 . Limitations to Documentation: no limitations . Information obtained by: patient and RN notes reviewed . HPI Narrative: Patient is 64-year-old female with history of stage IV kidney disease, opioid dependence, diabetes, neuropathy, venous stasis dermatitis of bilateral lower extremities, hepatitis, fluid overload, GERD, COPD, hypertension, anxiety, depression, presenting today with chief complaint of shortness of breath and cough. She reports this began 2 days ago and progressively been increasing. She reports that this does feel similar to when she had pneumonia historically. Reports the cough is primarily exacerbated by medication use such as when she uses her inhaler. Denies any fevers or chills. States that she had some discomfort in her chest with cough, no chest pain currently when at rest. Patient has been on home oxygen historically but has not been using any recen tly. Was last on home oxygen in 2016. Is questioning if she needs to go back on this at baseline. Patient reports that her typical O2 sat is 90% on room air. Related Data Home Medications Medication Instructions Recorded Confirmed polyethylene glycol 3350 [Miralax] 17 g PO DAILY PRN packet 07/30/13 05/21/19 triamcinolone acetonide 1 lorraine TOPICAL TID PRN #30 gm 09/07/17 05/21/19 ibuprofen 400 mg PO q8h PRN PAIN #200 tab-cap 12/21/17 05/21/19 mirtazapine 30 mg tablet 30 mg PO HS #30 tab-cap 08/24/18 05/21/19 bupropion HCl 300 mg 24 hr tablet, 300 mg PO DAILY #90 tab 08/28/18 05/21/19 extended release albuterol sulfate 90 mcg/actuation 1 - 2 puff INHALATION Q6H PRN PRN 09/18/18 05/21/19 aerosol inhaler #3 inhaler compressor, for nebulizer #1 each 09/28/18 04/11/19 methadone 10 mg/mL oral concentrate 75 mg PO DAILY ml 09/28/18 05/21/19 albuterol sulfate 2.5 mg CONTINUOUS NEBULIZATION Q4H 09/29/18 05/21/19 PRN #180 ml magnesium chloride [Mag 64] 128 mg PO BID #120 tab 10/04/18 05/21/19 furosemide 40 mg tablet 40 mg PO BID #60 tab 12/07/18 05/21/19 cholecalciferol (vitamin D3) 50 2,000 unit PO DAILY 01/24/19 05/21/19 mcg (2,000 unit) capsule gabapentin 300 mg capsule 300 mg PO TID #90 cap 01/24/19 05/21/19 ipratropium-albuterol 0.5 mg-3 3 ml UPD Q6H PRN PRN #90 ml 01/24/19 05/21/19 mg(2.5 mg base)/3 mL nebulization soln fluticasone furoate 200 1 inh IH DAILY #60 each 01/26/19 05/21/19 mcg-vilanterol 25 mcg/dose inhalation powder guaifenesin 1,200 mg tablet, 1,200 mg PO Q12H #14 tab 02/02/19 05/21/19 extended release 12 hr lisinopril 10 mg tablet 10 mg PO DAILY #90 tab-cap 03/22/19 05/21/19 benzonatate 100 mg capsule 100 mg PO TID PRN #30 cap 03/28/19 05/21/19 hydroxyzine pamoate 50 mg capsule 50 mg PO BID PRN #60 cap 03/28/19 05/21/19 spironolactone 25 mg tablet 50 mg PO BID #60 tab 03/28/19 05/21/19 Previous Rx's Medication Instructions Recorded ibuprofen 400 mg PO q8h PRN PAIN #200 tab-cap 12/21/17 mirtazapine 30 mg tablet 30 mg PO HS #30 tab-cap 08/24/18 bupropion HCl 300 mg 24 hr tablet, 300 mg PO DAILY #90 tab 08/28/18 extended release albuterol sulfate 90 mcg/actuation 1 - 2 puff INHALATION Q6H PRN PRN 09/18/18 aerosol inhaler #3 inhaler compressor, for nebulizer #1 each 09/28/18 albuterol sulfate 2.5 mg CONTINUOUS NEBULIZATION Q4H 09/29/18 PRN #180 ml magnesium chloride [Mag 64] 128 mg PO BID #120 tab 10/04/18 furosemide 40 mg tablet 40 mg PO BID #60 tab 12/07/18 gabapentin 300 mg capsule 300 mg PO TID #90 cap 01/24/19 ipratropium-albuterol 0.5 mg-3 3 ml UPD Q6H PRN PRN #90 ml 01/24/19 mg(2.5 mg base)/3 mL nebulization soln fluticasone furoate 200 1 inh IH DAILY #60 each 01/26/19 mcg-vilanterol 25 mcg/dose inhalation powder guaifenesin 1,200 mg tablet, 1,200 mg PO Q12H #14 tab 02/02/19 extended release 12 hr lisinopril 10 mg tablet 10 mg PO DAILY #90 tab-cap 03/22/19 benzonatate 100 mg capsule 100 mg PO TID PRN #30 cap 03/28/19 hydroxyzine pamoate 50 mg capsule 50 mg PO BID PRN #60 cap 03/28/19 spironolactone 25 mg tablet 50 mg PO BID #60 tab 03/28/19 Allergies Allergy/AdvReac Type Severity Reaction Status Date / Time gabapentin AdvReac Severe Nausea Verified 03/28/19 10:51 metaxalone [Metaxalone] AdvReac Severe nausea Verified 03/28/19 10:51 diclofenac [Diclofenac] AdvReac Intermediate contraindicated Verified 03/28/19 10:51 w/ pt's liver promethazine AdvReac Mild disoriented Verified 03/28/19 10:51 prochlorperazine AdvReac Unknown disoriented Verified 03/28/19 10:51 General Stated Complaint: SOB JANNIE: 2 Review of Systems Constitutional Constitutional: Reports as per HPI, Denies chills, Denies fever(s), Denies headache(s), Denies lethargy and Denies poor appetite Eyes Eyes: Denies change in vision ENT Ears, Nose, Mouth, and Throat: Denies dizziness and Denies headache(s) Cardiovascular Cardiovascular: Reports as per HPI, Reports chest pain (Reports chest wall pain with coughing), Denies chest pain at rest, Denies chest pain with activity, Reports edema (Reports bilateral lower extremity edema over the past 2 days), Denies lightheadedness, Denies radiating jaw, neck or arm pain, Denies palpitations, Reports dyspnea and Reports dyspnea on exertion Respiratory Respiratory: Reports as per HPI, Reports chest congestion, Reports cough, Denies hemoptysis, Reports pain on inspiration, Reports pain with cough, Reports dyspnea, Reports dyspnea on exertion and Denies wheezing Gastrointestinal Gastrointestinal: Reports as per HPI, Denies abdominal pain, Denies diarrhea, Denies nausea and Denies vomiting Musculoskeletal Musculoskeletal: Reports as per HPI and Denies back pain Integumentary/Breasts Skin/Breast: Reports as per HPI and Denies rash Neurologic Neurologic: Reports as per HPI, Denies dizziness and Denies headache(s) Endocrine Endocrine: Denies palpitations Allergic/Immunologic Allergic/Immunologic: Denies wheezing [facility] Medical History (Updated 05/21/19 @ 23:22 by Sujata Zimmer MD) Abnormal CT of the chest (Acute 03/18/17) stable 2mm nodule in AILYN Annual Chest CT for lung cancer screening recommended Acute renal failure (Resolved 04/29/14) a. creatinine bumped from 0.8 to 2.9 b. h/o renal failure 06/2013, presented with creatinine 5.4, which normalized with IV fluids Acute right-sided low back pain without sciatica (Acute 06/08/17) Pain rad thru buttock, but not down leg. Priformis Syndr? [ ] PT [ ] Hx Pain Clinic (Injctn #1 helped, #2 did not). Occasional relief from SOMA. Trial GABAPENTIN 06/09/18.in past Anxiety and depression (Chronic) Bilateral pneumonia (Acute 04/29/14) A. Bilateral lower lobes Cirrhosis Cirrhosis of liver (Chronic) a. History of Hep C treatment. b. Liver biopsy 2005 positive for cirrhosis. 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 AFP levels every six months and ruq US every 12 months COPD (chronic obstructive pulmonary disease) (Chronic) Ongoing tobacco use. COPD (chronic obstructive pulmonary disease) Diabetes (Chronic) On Metformin. Diabetes mellitus Essential hypertension (Chronic) Well maintained, meds tolerated. Hepatitis C HTN (hypertension) Hypertension (Chronic) Methadone dependence (Chronic) Neuropathy of right radial nerve (Chronic) a. recently had multiple falls and a hematoma around her humerus b. resolving Pleuritic chest pain (Acute 04/29/14) a. left sided Polysubstance abuse (Chronic) a. h/o opiate overdose 06/2013 and 11/2013 b. recently started in [facility] program 03/13/2014 on oral methadone (missed her dose today) Shortness of breath (Acute) Spinal stenosis (Chronic) a. MRI 10/2009, showed L4-5 narrowing Tobacco abuse (Chronic) Tobacco use disorder Surgical History (Updated 05/21/19 @ 23:09 by Sujata Zimmer MD) Appendectomy (01/30/07) H/O: hysterectomy (Chronic) History of ankle surgery (Acute) left S/P bilateral breast lumpectomy (Acute) Social History Smoking/Tobacco Use Status: Current-Occasional Tobacco Type: cigarettes Smoking packs per day: 1 Smoking cigarettes per day: 20.0 Years smoked: 40 Smoking pack- years: 40.00 Quit status: considering quitting Counseling given: other Details: pt feels motivated and states she doesnt enjoy them now Alcohol Intake: never Drug use: Never Substance use type: does not use Adopted: No Household members: none Housing: house Communication Needs: None Pets and animals: Yes Pets and animals: cat(s) What is your relationship status?: Panel score (0-1 are the most socially isolated patients): 0 What type of physical activity do you participate in: none Seatbelt use: always Drive intox or ride w/intox bookmobile driver: No Working smoke detector in home: Yes Fire extinguisher in home: Yes Carbon monox detector in home: Yes Do you feel safe at home: Yes Do you feel safe in your relationship?: Yes Exam Const General: cooperative, comfortable, no acute distress, well developed and ill appearing acutely and chronically Nutritional Appearance: average body habitus and well nourished Orientation: alert, awake and oriented x3 [facility] Head: normal to inspection Ears: hearing grossly normal bilaterally Mouth: mucous membranes dry (dry) Chest Chest: normal inspection of the chest, normal palpation of entire chest wall and no crepitus Resp Effort & Inspection: normal respiratory effort, able to speak in complete sentences and no respiratory distress Auscultation: not clear to auscultation bilaterally (patient sounds diffusely wet, worse with inspiration), no rales, no rhonchi and no wheezes Cardio Rate: regular rate Rhythm: regular rhythm Heart Sounds: S1 normal and S2 normal GI Inspection: normal to inspection, no edema and non-distended Palpation: soft, no hepatosplenomegaly, not firm, no guarding, not rigid and nontender Auscultation: normal bowel sounds Back/Spine/Pelvis Back: no CVA tenderness Thoracic/Lumbar Spine: thoracic and lumbar spine normal to inspection Skin General skin exam: no rashes or lesions noted Trauma: no lacerations or abrasions Neuro General: alert, awake and oriented x3 Cognition: normal cognition Speech: speech normal Extrem General: normal to inspection, normal capillary refill, no calf tenderness, no calf tenderness bilaterally, edema (1+ pitting edema bilaterally) and other (2+ distal pulses) Psych Appearance: grossly normal and well kempt Mental Status: mental status grossly normal Speech and Movement: speech and movement normal Course Vital Signs Vital signs: Vital Signs Temperature 37.5 C 05/21/19 18:32 Pulse 110 H 05/21/19 18:32 Respiratory Rate 23 05/21/19 18:32 Blood Pressure 122/75 05/21/19 18:32 Pulse Oximetry 70 L 05/21/19 18:32 Temperature 37.5 C 05/21/19 18:32 Temperature Source Skin 05/21/19 18:32 Pulse 110 H 05/21/19 18:32 Respiratory Rate 23 05/21/19 18:32 Blood Pressure 122/75 05/21/19 18:32 Blood Pressure Position Sitting 05/21/19 18:32 Pulse Oximetry 70 L 05/21/19 18:32 Oxygen Delivery Method Room Air 05/21/19 18:32 Oxygen Flow Rate 0 05/21/19 18:32 Comment 05/21/19 18:32
[2019-05-21] MEDS: Albuterol/Ipratropium 3 ML UPD VIAL UPD ×2 (18:54→23:57)
[2019-05-21 19:05] LABS: Abs Immature Grans 0.08 k/cumm (0.0-0.09); Absolute Basophil Count 0.03 k/cumm (0.0-0.2); Absolute Monocyte Count 1.62 k/cumm (0.11-0.7); Basophils % 0.1; Eosinophils % 0.1; HCT 35.5 % (36.0-46.0); HGB 11.8 g/dL (12.0-15.5); Immature Grans % 0.3; Lymphocytes % 3.3; Mean Corp. HGB Concentration 33.2 g/dL (32.0-36.0); Mean Corpuscular Hemoglobin 27.4 pg (27.0-33.0); Mean Corpuscular Volume 82.6 fL (80-95); Mean Platelet Volume 9.8 fL (8.0-11.0); Monocytes % 6.4; Neutrophils % 89.8; Platelet Count 238 x1000/uL (130-400); RBC Distribution Width 15.2 % (11.7-14.6)
[2019-05-21 19:20] LABS: Absolute Eosinophil Count 0.03 k/cumm (0.0-0.7); Absolute Lymphocyte Count 0.83 k/cumm (1.2-3.4); Absolute Neutrophil Count 22.67 k/cumm (1.2-6.7); Diff Comment Agrees w/ Instrument; Polychromasia Present; White Blood Cell Count 25.25 k/cumm (4.4-10.8)
[2019-05-21 19:31] LABS: ALT 21 U/L (14-59); AST 45 U/L (15-37); Alkaline Phosphatase 115 U/L (46-116); Anion Gap 13.8 mmol/L (3-11); BUN 16 mg/dL (7-18); Bilirubin, Total 0.3 mg/dL (0.2-1.0); CO2 24.2 mmol/L (21.0-32.0); CREATININE 0.76 mg/dL (0.55-1.02); Calcium 8.9 mg/dL (8.5-10.1); Chloride 103 mmol/L (98-107); Glucose 113 mg/dL (74-106); Magnesium 1.7 mg/dL (1.8-2.4); NT-proBNP 8153 pg/mL (<300); Potassium 3.4 mmol/L (3.5-5.1); Sodium 141 mmol/L (136-145); Total Protein 7.5 g/dL (6.4-8.2)
--- NOTE | 2019-05-21 19:41 | DI.RAD_ITS ---
EXAM: XR CHEST 2V PA LATERAL INDICATION: cough, SOB. COMPARISON: XR CHEST 2V PA LATERAL from 10/01/2018 XR PORTABLE CHEST AP from 10/03/2018 XR CHEST 2V PA LATERAL from 10/31/2018 TECHNIQUE: 2D digital imaging was performed. FINDINGS: The heart size is within normal limits. There are increased pulmonary densities throughout, greater at the lung bases. This appears chronic. There are chronic interstitial changes. Superimposed pneu monia is not excluded.
[2019-05-21] MEDS: Ondansetron 4 MG/2 ML VIAL (19:53)
--- NOTE | 2019-05-21 19:54 | DI.VRAD_ITS ---
PROCEDURE INFORMATION: Exam: XR Chest, 2 Views Exam date and time: 05/21/2019 7:43 PM Age: 64 years old Clinical history: Shortness of breath; Patient HX: SOB, copd, smoker TECHNIQUE: Imaging protocol: XR of the chest Views: 2 views. COMPARISON: CR XR CHEST 2V PA LATERAL 05/12/2018 13:01 FINDINGS: Lungs: Chronic interstitial lung disease. Pleural space: Unremarkable. No pleural effusion. No pneumothorax. Heart/Mediastinum: Increasing bilateral opacifications involving the upper and lower lobes. Stable cardiomediastinal silhouette. Bones/joints: Multilevel degenerative scoliotic changes of the thoracic and lumbar spine. Kyphosis. Suspect old right lateral rib fractures. IMPRESSION: Bilateral pneumonia with greater involvement of the lung bases. Dictated and Authenticated by: Kareen Lugo MD. Ordering:MOLLY Austin MD
[2019-05-21] MEDS: Normal Saline 500 ML IV (19:55)
[2019-05-21] MEDS: Furosemide 20 MG/2 ML VIAL IVP (19:58)
[2019-05-21 20:19] LABS: Lactate 1.1 mmol/L (0.6-1.4)
[2019-05-21 20:50] LABS: Procalcitonin < 0.1 ng/mL
[2019-05-21 22:13] LABS: Troponin I 0.12 ng/Ml (<0.06)
--- NOTE | 2019-05-21 23:02 | HPE_ITS ---
Date of service: 05/21/19 Time of Service: 23:02 Assessment and Plan Assessment and plan (1) Sepsis: Status: Acute Assessment and plan: due to Pneumonia, present on admission. Even though procalcitonin is negative, clinical suspicion for pneumonia and sepsis are rather high given purulent cough. The patient does have risk factors to aspiration pneumonia (specifically, being on methadone) in addition to the regular community-acquired pathogens. At this time, will place the patient on doxycycline and zosyn - this combination was successful for her before. She cannot tolerate IVF due to being fluid overloaded. Obtain sputum and blood cultures, as well as rapid flu. Obtain urine legionella and strep studies; check mycoplasma in th sputum. (2) Acute exacerbation of chronic obstructive pulmonary disease (COPD): Status: Acute Assessment and plan: In addition to above, will also treat with nebs, symbicort in place of breo (the paient cannot afford breo as outpatient as has run out), and IV steroids. Wean O2 as tolerated. (3) CAP (community acquired pneumonia): Status: Acute Assessment and plan: As above (4) Acute respiratory failure with hypoxia: Status: Acute Assessment and plan: As above - in addition, there is a likely component of fluid overload - will increase duiretics (on lasix 40 mg PO BID and aldactone 50 mg PO BID - increasing lasix to 40 mg IV BID). (5) Fluid overload: Status: Acute Assessment and plan: As above (6) Continuous opioid dependence: Status: Acute (7) Elevated troponin: Status: Acute Assessment and plan: In setting of hypoxia. Doubt ACS. Start asa. Recheck troponin and EKG in am and obtain an echo. (8) GERD (gastroesophageal reflux disease): Status: Chronic Assessment and plan: I do not see mention of GI bleedingin her history. Treat with PPI while on IV steroids. (9) Hypokalemia: Status: Acute Assessment and plan: Replete and recheck in am (10) Hypomagnesemia: Status: Acute Assessment and plan: replete and recheck in am (11) Diabetes mellitus: Status: Acute Assessment and plan: check A1C - patient has not been on therapy since her weight loss after her . 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 Monitor for GI bleeding. Continue diuretics. No evidence of encephalopathy - will check ammonia in am for baseline. (13) DVT prophylaxis: Status: Acute Assessment and plan: Lovenox (14) Discharge planning issues: Status: Acute Assessment and plan: DNI, but not DNR. History of Present Illness History of Present Illness Chief Complaint: I was very short of breath Narrative: Ms Odonnell is a 64 year old female with PMHx of non-oxygen dependent COPD, Cirrhosis of the liver due to Hepatitis C, Hypertension, chronic pain on Methadone via [facility], who was brought to [facility] ED today by her friend for shortness of breath. Per patient, the shortness of breath started on Tuesday afternoon, but got progressively worse over the next two days. The patient denies fevers, chills, runny nose, sore throat, or sick contacts. She received her flu shot this year. Her cough is productive of yellow sputum as of today. Today, she also noticed pain in the ribs on the left side of her chest on inspiration and expiration, but this has now subsided. She reports slight swelling in her B legs - also over the last 2-3 days. She cannot lay flat and has been sleeping on 3 pillows due to shortness of breath. In the ED, she was found to by hypoxic to 77% on room air and was placed on O2 at 4L with O2 sat of 90%. She has a leucocytosis of 25.25, a temperature of 38.4 celcius, and her CXR revealed bilateral pneumonia with greater involvement of the lung bases. We were asked to admit the patient for further care. Review of Systems Narrative: 12 systems reviewed. Pertinent positives and negatives are as per HPI. [facility] Medical History (Updated 05/21/19 @ 23:22 by Sujata Zimmer MD) Abnormal CT of the chest (Acute 03/18/17) stable 2mm nodule in AILYN Annual Chest CT for lung cancer screening recommended Acute renal failure (Resolved 04/29/14) a. creatinine bumped from 0.8 to 2.9 b. h/o renal failure 06/2013, presented with creatinine 5.4, which normalized with IV fluids Acute right-sided low back pain without sciatica (Acute 06/08/17) Pain rad thru buttock, but not down leg. Priformis Syndr? [ ] PT [ ] Hx Pain Clinic (Injctn #1 helped, #2 did not). Occasional relief from SOMA. Trial GABAPENTIN 06/09/18.in past Anxiety and depression (Chronic) Bilateral pneumonia (Acute 04/29/14) A. Bilateral lower lobes Cirrhosis Cirrhosis of liver (Chronic) a. History of Hep C treatment. b. Liver biopsy 2005 positive for cirrhosis. 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 AFP levels every six months and ruq US every 12 months COPD (chronic obstructive pulmonary disease) (Chronic) Ongoing tobacco use. COPD (chronic obstructive pulmonary disease) Diabetes (Chronic) On Metformin. Diabetes mellitus Essential hypertension (Chronic) Well maintained, meds tolerated. Hepatitis C HTN (hypertension) Hypertension (Chronic) Methadone dependence (Chronic) Neuropathy of right radial nerve (Chronic) a. recently had multiple falls and a hematoma around her humerus b. resolving Pleuritic chest pain (Acute 04/29/14) a. left sided Polysubstance abuse (Chronic) a. h/o opiate overdose 06/2013 and 11/2013 b. recently started in [facility] program 03/13/2014 on oral methadone (missed her dose today) Shortness of breath (Acute) Spinal stenosis (Chronic) a. MRI 10/2009, showed L4-5 narrowing Tobacco abuse (Chronic) Tobacco use disorder Surgical History (Updated 05/21/19 @ 23:09 by Sujata Zimmer MD) Appendectomy (01/30/07) H/O: hysterectomy (Chronic) History of ankle surgery (Acute) left S/P bilateral breast lumpectomy (Acute) Social History Smoking/Tobacco Use Status: Current-Occasional Tobacco Type: cigarettes Smoking packs per day: 1 Smoking cigarettes per day: 20.0 Years smoked: 40 Smoking pack- years: 40.00 Quit status: considering quitting Counseling given: other Details: pt feels motivated and states she doesnt enjoy them now Alcohol Intake: never Drug use: Never Substance use type: does not use Adopted: No Household members: none Housing: house Communication Needs: None Pets and animals: Yes Pets and animals: cat(s) What is your relationship status?: Panel score (0-1 are the most socially isolated patients): 0 What type of physical activity do you participate in: none Seatbelt use: always Drive intox or ride w/intox route delivery driver: No Working smoke detector in home: Yes Fire extinguisher in home: Yes Carbon monox detector in home: Yes Do you feel safe at home: Yes Do you feel safe in your relationship?: Yes Meds Home Medications and Allergies Home Medications Medication Instructions Recorded Confirmed Type polyethylene glycol 3350 [Miralax] 17 g PO DAILY PRN packet 07/30/13 05/21/19 History triamcinolone acetonide 1 lorraine TOPICAL TID PRN #30 gm 09/07/17 05/21/19 History ibuprofen 400 mg PO q8h PRN PAIN #200 tab-cap 12/21/17 05/21/19 Rx mirtazapine 30 mg tablet 30 mg PO HS #30 tab-cap 08/24/18 05/21/19 Rx bupropion HCl 300 mg 24 hr tablet, 300 mg PO DAILY #90 tab 08/28/18 05/21/19 Rx extended release albuterol sulfate 90 mcg/actuation 1 - 2 puff INHALATION Q6H PRN PRN 09/18/18 05/21/19 Rx aerosol inhaler #3 inhaler compressor, for nebulizer #1 each 09/28/18 04/11/19 Rx methadone 10 mg/mL oral concentrate 75 mg PO DAILY ml 09/28/18 05/21/19 History albuterol sulfate 2.5 mg CONTINUOUS NEBULIZATION Q4H 09/29/18 05/21/19 Rx PRN #180 ml magnesium chloride [Mag 64] 128 mg PO BID #120 tab 10/04/18 05/21/19 Rx furosemide 40 mg tablet 40 mg PO BID #60 tab 12/07/18 05/21/19 Rx cholecalciferol (vitamin D3) 50 2,000 unit PO DAILY 01/24/19 05/21/19 History mcg (2,000 unit) capsule gabapentin 300 mg capsule 300 mg PO TID #90 cap 01/24/19 05/21/19 Rx ipratropium-albuterol 0.5 mg-3 3 ml UPD Q6H PRN PRN #90 ml 01/24/19 05/21/19 Rx mg(2.5 mg base)/3 mL nebulization soln fluticasone furoate 200 1 inh IH DAILY #60 each 01/26/19 05/21/19 Rx mcg-vilanterol 25 mcg/dose inhalation powder guaifenesin 1,200 mg tablet, 1,200 mg PO Q12H #14 tab 02/02/19 05/21/19 Rx extended release 12 hr lisinopril 10 mg tablet 10 mg PO DAILY #90 tab-cap 03/22/19 05/21/19 Rx benzonatate 100 mg capsule 100 mg PO TID PRN #30 cap 03/28/19 05/21/19 Rx hydroxyzine pamoate 50 mg capsule 50 mg PO BID PRN #60 cap 03/28/19 05/21/19 Rx spironolactone 25 mg tablet 50 mg PO BID #60 tab 03/28/19 05/21/19 Rx Allergies Allergy/AdvReac Type Severity Reaction Status Date / Time gabapentin AdvReac Severe Nausea Verified 03/28/19 10:51 metaxalone [Metaxalone] AdvReac Severe nausea Verified 03/28/19 10:51 diclofenac [Diclofenac] AdvReac Intermediate contraindicated Verified 03/28/19 10:51 w/ pt's liver promethazine AdvReac Mild disoriented Verified 03/28/19 10:51 prochlorperazine AdvReac Unknown disoriented Verified 03/28/19 10:51 Exam Narrative Exam Narrative: General: Very pleasant middle-aged female, sitting in bed at a 50 degree angle, does not appear to be in respiratory distress, able to complete lengthy sentences Neurological: A&OX3, no focal deficits Psychiatric: appropriate speech pattern/content Skin: telangiectasias visible especially on BLE's/feet HEENT: Atraumatic, normocephalic, EOMI, dry MM, +thrush, no submandibular or cervical lymphadenopathy; no goiter or JVD. Cardiovascular: RRR, ?quiet HARRY, tachycardic Lungs: rales and rhonchi on expiration B Gastrointestinal: abdomen soft, nontender, nondistended; I do not appreciate ascites Genitourinary: deferred Extremities: +1 BLE edema, no c/c, trace pedal pulses B; BLE are very warm Results Imaging Additional studies: CXR: Bilateral pneumonia with greater involvement of the lung bases. EKG: HR 109, sinus tach, nonspecific ST-T changes, no acute ischemia Labs Result diagrams: 05/21/19 18:35 05/21/19 18:35 Labs: Laboratory Results - last 24 hr 05/21/19 05/21/19 05/21/19 18:35 18:35 20:15 WBC 25.25 H* RBC 4.30 Hgb 11.8 L Hct 35.5 L MCV 82.6 MCH 27.4 MCHC 33.2 RDW 15.2 H Plt Count 238 MPV 9.8 Immature Gran % 0.3 Neutrophils % 89.8 Lymphocytes % 3.3 Monocytes % 6.4 Eosinophils % 0.1 Basophils % 0.1 Absolute Neutrophils 22.67 H Absolute Lymphocytes 0.83 L Absolute Monocytes 1.62 H Absolute Eosinophils 0.03 Absolute Basophils 0.03 Differential Comment Agrees w/ instrument RBC Morphology See below Polychromasia Present Sodium 141 Potassium 3.4 L Chloride 103 Carbon Dioxide 24.2 Anion Gap 13.8 H BUN 16 Creatinine 0.76 Estimated GFR/1.73 m2 >= 60.00 Glucose 113 H Lactate 1.1 Calcium 8.9 Magnesium 1.7 L Total Bilirubin 0.3 AST 45 H ALT 21 Alkaline Phosphatase 115 Troponin I 0.10 H* NT-Pro-B Natriuret Pep 8153 Total Protein 7.5 Albumin 3.0 L Procalcitonin < 0.1 05/21/19 21:43 WBC RBC Hgb Hct MCV MCH MCHC RDW Plt Count MPV Immature Gran % Neutrophils % Lymphocytes % Monocytes % Eosinophils % Basophils % Absolute Neutrophils Absolute Lymphocytes Absolute Monocytes Absolute Eosinophils Absolute Basophils Differential Comment RBC Morphology Polychromasia Sodium Potassium Chloride Carbon Dioxide Anion Gap BUN Creatinine Estimated GFR/1.73 m2 Glucose Lactate Calcium Magnesium Total Bilirubin AST ALT Alkaline Phosphatase Troponin I 0.12 H* NT-Pro-B Natriuret Pep Total Protein Albumin Procalcitonin Last Vital Signs Temp 38.4 C H 05/21/19 21:16 Pulse 112 H 05/21/19 21:16 Resp 20 05/21/19 21:16 BP 94/63 L 05/21/19 21:16 Pulse Ox 90 L 05/21/19 21:16
[2019-05-21] MEDS: Potassium Chloride 20 MEQ TABCR 40 MEQ PO (23:57)
[2019-05-21] MEDS: Enoxaparin 40 MG/0.4 ML SYR SC (23:58)
[2019-05-22] VITALS (14 sets, daily range): BP systolic 99–114; BP diastolic 64–73; PULSE 75–156; RESP 16–20; TEMP 36.2–36.7; O2SAT 90–100
[2019-05-22] MEDS: Pantoprazole 40 MG VIAL IVP (00:06)
[2019-05-22] MEDS: methylPREDNISolone SUCC 125 MG VIAL 80 MG IVP ×2 (00:06→08:09)
[2019-05-22] MEDS: Budesonide/Formoterol 160/4.5 6 GM 60 PUFF INH IH ×3 (00:07→19:48)
[2019-05-22] MEDS: MAGNESIUM SULFATE 2 GM/50 ML BAG IVPB (00:08)
[2019-05-22] MEDS: DOXYCYCLINE 100 MG in Normal Saline 100 ML IVPB ×2 (00:20→12:03)
[2019-05-22] MEDS: PIPERACILLIN/TAZO 3.375 GM in Normal Saline 50 ML IVPB ×4 (02:36→19:49)
[2019-05-22] MEDS: Aspirin E.C. 325 MG TABEC PO (02:43)
[2019-05-22] MEDS: Nicotine 21 MG/24 HR PATCH TD ×2 (02:44→08:20)
[2019-05-22] MEDS: Albuterol/Ipratropium 3 ML UPD VIAL UPD ×2 (06:21→12:09)
[2019-05-22] MEDS: Nystatin 500000 UNITS/5 ML SUSP 5ML CUP PO ×5 (06:21→21:58)
[2019-05-22 07:56] LABS: Abs Immature Grans 0.07 k/cumm (0.0-0.09); Absolute Monocyte Count 0.34 k/cumm (0.11-0.7); Absolute Neutrophil Count 17.72 k/cumm (1.2-6.7); Basophils % 0.1; HCT 34.7 % (36.0-46.0); HGB 11.2 g/dL (12.0-15.5); Immature Grans % 0.4; Lymphocytes % 2.6; Mean Corp. HGB Concentration 32.3 g/dL (32.0-36.0); Mean Corpuscular Volume 83.6 fL (80-95); Mean Platelet Volume 10.1 fL (8.0-11.0); Monocytes % 1.8; Neutrophils % 95.1; Platelet Count 206 x1000/uL (130-400); RBC 4.15 m/cumm (4.00-5.20); RBC Distribution Width 15.2 % (11.7-14.6); White Blood Cell Count 18.63 k/cumm (4.4-10.8)
[2019-05-22 07:58] LABS: Absolute Basophil Count 0.02 k/cumm (0.0-0.2); Absolute Lymphocyte Count 0.48 k/cumm (1.2-3.4); Ammonia 23 umol/L (11-32)
--- NOTE | 2019-05-22 08:01 | PDOC.CMIN ---
- If Service Date Differs Date of service: 05/22/19 Time of Service: 08:01 Care Management Initial Assess REASON FOR HOSPITALIZATION:: Sepsis PAST MEDICAL HISTORY/PAST SURGICAL HISTORY:: Medical History (Updated 05/21/19 @ 23:22 by Sujata Zimmer MD). Abnormal CT of the chest (Acute 03/18/17). stable 2mm nodule in AILYN. Annual Chest CT for lung cancer screening recommended. Acute renal failure (Resolved 04/29/14). a. creatinine bumped from 0.8 to 2.9. b. h/o renal failure 06/2013, presented with creatinine 5.4, which normalized with IV fluids. Acute right-sided low back pain without sciatica (Acute 06/08/17). Pain rad thru buttock, but not down leg. Priformis Syndr? [ ] PT [ ] Hx Pain Clinic (Injctn #1 helped, #2 did not). Occasional relief from SOMA. Trial GABAPENTIN 06/09/18.in past. Anxiety and depression (Chronic). Bilateral pneumonia (Acute 04/29/14). A. Bilateral lower lobes. Cirrhosis. Cirrhosis of liver (Chronic). a. History of Hep C treatment. b. Liver biopsy 2005 positive for cirrhosis. 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 a. AFP levels every six months and ruq US every 12 months. COPD (chronic obstructive pulmonary disease) (Chronic). Ongoing tobacco use. COPD (chronic obstructive pulmonary disease). Diabetes (Chronic). On Metformin. Diabetes mellitus. Essential hypertension (Chronic). Well maintained, meds tolerated. Hepatitis C. HTN (hypertension). Hypertension (Chronic). Methadone dependence (Chronic). Neuropathy of right radial nerve (Chronic). a. recently had multiple falls and a hematoma around her humerus. b. resolving. Pleuritic chest pain (Acute 04/29/14). a. left sided. Polysubstance abuse (Chronic). a. h/o opiate overdose 06/2013 and 11/2013. b. recently started in [facility] program 03/13/2014 on oral methadone (missed her dose today). Shortness of breath (Acute). Spinal stenosis (Chronic). a. MRI 10/2009, showed L4-5 narrowing. Tobacco abuse (Chronic). Tobacco use disorder. Surgical History (Updated 05/21/19 @ 23:09 by Sujata Zimmer MD). Appendectomy (01/30/07). H/O: hysterectomy (Chronic). History of ankle surgery (Acute). left. S/P bilateral breast lumpectomy (Acute) PREVIOUS FUNCTIONAL STATUS/SOCIAL/FAMILY SUPPORTS:: Kira lives alone in a mobile home in [facility]. She uses [employer] for transportation and has many community supports which include Meals on Wheels, Food [employer], fuel assistance and [facility]. She has also recently received a eloy from [employer] for improvements to her home.Kira is independent at baseline. She attends a woman's support group at [facility] on . CURRENT FUNCTIONAL STATUS:: Kira was very pleasant and engaged readily in conversation. She shared the details of her medical history and some of the unfortunate circumstances of her past. Kira states that she has been doing well since her last admission in September and that her breathing has been good. ADVANCE DIRECTIVES:: none on file Has patient been provided with information about the portal?: Yes Did the patient sign up for the portal?: No CODE STATUS:: DNI INSURANCE COVERAGE / FINANCIAL ISSUES:: Medicare. Medicaid CURRENT HOME/COMMUNITY SERVICES/EQUIPMENT:: [facility], [facility], [facility] individual counseling PRIMARY CARE PHYSICIAN:: Kirsten Friedman POTENTIAL DISCHARGE NEEDS:: follow up with PCP and discharge plan of care PATIENT/FAMILY EDUCATION NEEDS:: discharge plan, limitations, follow up plan, [employer] TRANSPORTATION:: via private vehicle with family PLAN:: Kira will likely be discharged home with no new services. She may need home oxygen if testing warrants it. She will follow up with her PCP and discharge plan of care. CM will continue to support patient and discharge planning needs.
[2019-05-22 08:09] LABS: Calculated LDL 61 mg/dL; Cholesterol 102 mg/dL (<200); HDL Cholesterol 34 mg/dL (40-60); Magnesium 2.2 mg/dL (1.8-2.4); Triglyceride 36 mg/dL (<150); Troponin I < 0.05 ng/Ml (<0.06)
[2019-05-22] MEDS: Furosemide 20 MG/2 ML VIAL 40 MG IVP (08:09)
[2019-05-22] MEDS: Insulin Aspart 300 UNITS/3 ML PEN SC ×3 (08:10→17:38)
[2019-05-22 08:18] LABS: Anion Gap 12.1 mmol/L (3-11); BUN 16 mg/dL (7-18); CO2 24.9 mmol/L (21.0-32.0); CREATININE 0.64 mg/dL (0.55-1.02); Calcium 8.6 mg/dL (8.5-10.1); Chloride 103 mmol/L (98-107); Glucose 190 mg/dL (74-106); Potassium 3.9 mmol/L (3.5-5.1); Sodium 140 mmol/L (136-145)
[2019-05-22] MEDS: Gabapentin 300 MG CAP PO ×3 (08:20→19:50)
[2019-05-22] MEDS: Cholecalciferol (Vitamin D3) 1,000 UNIT TAB 2000 UNITS PO (08:20)
[2019-05-22] MEDS: buPROPion-XL 150 MG TABCR 300 MG PO (08:20)
[2019-05-22] MEDS: Aspirin E.C. 81 MG TABEC PO (08:20)
[2019-05-22] MEDS: Spironolactone 25 MG TAB 50 MG PO ×2 (08:20→19:50)
[2019-05-22] MEDS: Magnesium Chloride 64 MG TABCR 128 MG PO ×2 (08:20→19:51)
[2019-05-22 08:21] LABS: Hemoglobin A1C 5.9 % (4.5-6.2)
[2019-05-22] MEDS: Normal Saline Flush 10 ML SYR IVP ×3 (08:21→19:49)
[2019-05-22] MEDS: Methadone Liquid 10 MG/ML 75 MG PO (08:27)
--- NOTE | 2019-05-22 09:04 | DI.US_ITS ---
APPROVED REPORT EXAM: Comprehensive 2D, Doppler, and color-flow Echocardiogram Patient Location: In-Patient Artist Manager: Katie Shaw RDCS (AE) Rhythm: NSR Indications: CHF Conclusion Left Ventricle : The left ventricle is normal size. Left ventricular systolic function is hyperdynami c. There is normal left ventricular wall thickness. There is normal LV segmental wall motion. LVEF is estimated to be 65-70%. Diastolic function is indeterminate. Right Ventricle : The right ventricle is boarderline enlarged by basal measurement but appears enlarg ed visually. Right ventricular systolic function appears to be mildly reduced. Atria : Left atrium is enlarged. The right atrium size is mildly enlarged. Aortic Valve : The Aortic valve is sclerotic. Aortic valve is trileaflet. No aortic regurgitation is present. There is no aortic valvular stenosis. Mitral Valve : Mitral valve leaflets are mildly thickened. Mild mitral regurgitation. No evidence of mitral valve stenosis. Tricuspid Valve : Tricuspid valve leaflets are thickened but open well. Mild to moderate tricuspid re gurgitation. Great Vessels : The IVC is mildly dilated but collapses >50% with inspiration. Estimated RVSP is 38- 46 mmHg. Compared to echocardiogram dated 10/24/2018: There is no significant change. Wall motion Left Ventricle The left ventricle is normal size. Left ventricular systolic function is hyperdynamic. There is teresa l left ventricular wall thickness. There is normal LV segmental wall motion. Diastolic function is in determinate. LVEF is estimated to be 65-70%. Right Ventricle The right ventricle is boarderline enlarged by basal measurement but appears enlarged visually. Right ventricular systolic function appears to be mildly reduced. Atria Left atrium is enlarged. The right atrium size is mildly enlarged. Aortic Valve The Aortic valve is sclerotic. Aortic valve is trileaflet. There is no aortic valvular stenosis. No a ortic regurgitation is present. Mitral Valve Mitral valve leaflets are mildly thickened. No evidence of mitral valve stenosis. Mild mitral regurgi tation. Tricuspid Valve Tricuspid valve leaflets are thickened but open well. Mild to moderate tricuspid regurgitation. Pulmonic Valve Pulmonic valve is not well visualized. Mild pulmonic regurgitation by color Great Vessels The aortic root is normal in size. The IVC is mildly dilated but collapses >50% with inspiration. Est imated RVSP is 38-46 mmHg. Pericardium There is no pericardial effusion. 2D Dimensions IVSd 1.15 cm F: 0.6-1.0 LV EDV A2C 66.20 mL PWd 0.95 cm F: 0.6 - 1.0 LV EDV A4C 68.90 mL LVDd 3.65 cm F: 3.8 - 5.2 LA Volume Index A4C 36.61 mL/m2 LVDs 1.95 cm F: 2.2 - 3.5 LA Area A4C 18.67 cm2 Aortic Root 2.70 cm F: 2.7 - 3.3 EF AP4 69.23 % RVID Base (AP4) 4.03 cm (M/F) 2.5-4.1 EF AP2 63.60 % RA Area A4C 17.32 cm2 EF BP 68.16 % LVOT 1.85 cm (M/F) 1.5-2.5 Ascending Aorta 2.79 cm F: 2.3 - 3.1 LVEF (Teich) 78.60 % LVEF (Deras's) 68.16 % F: 54 - 74 LV Volume 61.27 mL F: 46 - 106 LV Volume Index 44.72 mL/m2 F: 29 - 61 FS 46.40 % LV Diastology E/A Ratio 1.0 MED E' 0.11 (>0.07 m/s) LV E/e MED 9.15 (<14) LAT E' 0.16 (>0.1 m/s) LV E/e LAT 6.20 (<14) Aortic Valve LVOT Area 2.75 cm2 LVOT Peak Tres. 1.55 m/s LVOT Mean Tres. 0.89 m/s LVOT Peak Gr. 9.85 mmHg GIANLUCA Vmax Index 1.40 cm2/m2 LVOT Mean Gr. 3.95 mmHg LVOT VTI 0.25 m GIANLUCA Mean Tres. Index 1.21 cm2/m2 AoV Peak Tres. 2.23 (0.5-1.3 m/s) AoV Mean Tres. 1.47 m/s AO Peak GR. 19.94 mmHg AO Mean GR. 9.79 (<5 mmHg) VTI Ratio 0.77 GIANLUCA (VTI) 2.10 (2.5-4.5 cm2) GIANLUCA (VTI) Index 1.54 cm/m2 Mitral Valve MV E Max Tres. 0.98 (0.4-1.3 m/s) MV A Velocity 1.00 (0.4-1.3 m/s) E/A Ratio 0.95 MV Decel. Time 188.60 (160-240 msec) MV PHT 54.70 msec MVA PHT 4.00 cm2 Tricuspid Valve TR P. Velocity 3.11 m/s TV Regurg Vmax 3.11 m/s TR P. Gradient 38.75 mmHg
--- NOTE | 2019-05-22 15:22 | W.PM.PROGNOT ---
Date of Service Date of service: 05/22/19 Time of Service: 15:23 Assessment and Plan Assessment and plan (1) Sepsis: Status: Acute Assessment and plan: Improving. Due to pneumonia. White blood cell count improving, down to 18.63, she is afebrile. Procalcitonin less than 0.1 on admission. Sputum culture pending. Flu swab negative. Blood culture pending. Continue Zosyn and doxy. Steroids discontinued. Repeat CBC in the morning. (2) CAP (community acquired pneumonia): Status: Acute Assessment and plan: As above. (3) Acute exacerbation of chronic obstructive pulmonary disease (COPD): Status: Acute Assessment and plan: As above. As well as nebulizer treatments as needed and Symbicort. IV steroids discontinued, continue to monitor. Wean oxygen as tolerated. Not on home oxygen. (4) Fluid overload: Status: Acute Assessment and plan: BNP elevated on admission to 8153, appeared fluid overloaded on exam at the time of admission, she received IV Lasix. Transition to oral Lasix today and monitor closely. Continue to monitor daily weights and intake and output. (5) Continuous opioid dependence: Status: Acute Assessment and plan: Continue methadone per home dose. (6) GERD (gastroesophageal reflux disease): Status: Chronic Assessment and plan: Continue IV PPI. (7) Hypokalemia: Status: Acute Assessment and plan: Improved to 3.9. Continue to monitor. (8) Hypomagnesemia: Status: Acute Assessment and plan: Improved to 2.2, continue to monitor. (9) Diabetes mellitus: Status: Acute Assessment and plan: Not on medication. Hemoglobin A1c 5.9. Continue to monitor blood glucose at with short acting insulin per sliding scale. 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 Monitor for GI bleeding, H&H stable. Continue diuretics. Ammonia level normal at 23. Follow up as outpatient. (11) DVT prophylaxis: Status: Acute Assessment and plan: Subcutaneous lovenox. (12) Discharge planning issues: Status: Acute Assessment and plan: She is a DNI. This case was discussed with Dr. Michaud who is in agreement. Subjective Subjective Interval history since last seen: Kira Odonnell reports feeling better today than when she came in yesterday. She denies shortness of breath at rest, she continues to have shortness of breath with activity. She reports a cough productive of thick yellow sputum, no wheezing, chest pain/pressure, palpitations. She is eating and drinking without nausea, vomiting or diarrhea. She had a normal bowel movement yesterday. She denies dysuria or hematuria. She had edema at the time of her admission, she reports that it has improved. She also reports that she has a history of SVT for which she is not on medication. She was previously on beta-blockers but could not tolerate them. She was noted to have 12 beats of SVT overnight on telemetry. Exam Narrative Exam Narrative: General: 64-year-old female, appears stated age, sitting up in bed, in no acute distress. She is alert and oriented x3, able to complete sentences without shortness of breath, pleasant and cooperative. HEENT: Normocephalic, atraumatic, extraocular movements intact, mucous membranes moist, white coating on tongue. Neck: Supple, no JVD. Cardiovascular: Heart has regular rate and rhythm, no murmur appreciated, non-tachycardic. Respiratory: Respirations appear even and unlabored, no shortness of breath while talking. Lungs with rales bilaterally, no wheezing noted. GI: Normoactive bowel sounds, abdomen soft, nontender on palpation, nondistended. Extremities: Trace to +1 pitting edema to bilateral lower extremities, faint pedal pulses bilaterally. Objective Objective Clinical Data: Abnormal lab results 05/21/19 05/21/19 05/21/19 Range/Units 18:35 18:35 21:43 WBC 25.25 H* (4.4-10.8) k/cumm Hgb 11.8 L (12.0-15.5) g/dL Hct 35.5 L (36.0-46.0) % RDW 15.2 H (11.7-14.6) % Absolute Neutrophils 22.67 H (1.2-6.7) k/cumm Absolute Lymphocytes 0.83 L (1.2-3.4) k/cumm Absolute Monocytes 1.62 H (0.11-0.7) k/cumm Potassium 3.4 L (3.5-5.1) mmol/L Anion Gap 13.8 H (3-11) mmol/L Glucose 113 H (74-106) mg/dL Magnesium 1.7 L (1.8-2.4) mg/dL AST 45 H (15-37) U/L Troponin I 0.10 H* 0.12 H* (<0.06) ng/Ml Albumin 3.0 L (3.4-5.0) g/dL HDL Cholesterol (40-60) mg/dL 05/22/19 05/22/19 Range/Units 07:35 07:35 WBC 18.63 H (4.4-10.8) k/cumm Hgb 11.2 L (12.0-15.5) g/dL Hct 34.7 L (36.0-46.0) % RDW 15.2 H (11.7-14.6) % Absolute Neutrophils 17.72 H (1.2-6.7) k/cumm Absolute Lymphocytes 0.48 L (1.2-3.4) k/cumm Absolute Monocytes (0.11-0.7) k/cumm Potassium (3.5-5.1) mmol/L Anion Gap 12.1 H (3-11) mmol/L Glucose 190 H D (74-106) mg/dL Magnesium (1.8-2.4) mg/dL AST (15-37) U/L Troponin I (<0.06) ng/Ml Albumin (3.4-5.0) g/dL HDL Cholesterol 34 L (40-60) mg/dL Vital Signs Temperature 36.7 C 05/22/19 11:40 Temperature Source Tympanic 05/22/19 11:40 Pulse 87 05/22/19 12:14 Pulse Rhythm Regular 05/22/19 08:34 Pulse 112 H 05/21/19 20:20 Respiratory Rate 18 05/22/19 12:14 Respiratory Effort Short of Breath 05/22/19 08:34 Respiratory Depth Shallow 05/22/19 08:34 Respiratory Pattern Normal 05/22/19 08:34 Blood Pressure 103/68 05/22/19 11:40 Blood Pressure Mean 82 05/21/19 20:15 Blood Pressure Position Sitting 05/21/19 18:32 Pulse Oximetry 100 05/22/19 12:14 Oxygen Delivery Method Nasal Cannula 05/22/19 12:09 Oxygen Flow Rate 2 05/22/19 12:09 Fraction of Inspired Oxygen (FIO2) 90 05/22/19 04:01 Pain Level 0 05/22/19 11:40 Comment 05/21/19 18:32 Intake & Output 05/21/19 05/22/19 05/22/19 23:59 11:59 23:59 Intake Total 521.667 / 521.667 410 / 410 Output Total 450 / 450 Balance 71.667 / 71.667 410 / 410 Weight 50.3 kg 49.8 kg Intake: IV 41.667 / 41.667 170 / 170 Oral 480 / 480 240 / 240 Output: Urine 450 / 450 Other: Urine Color Yellow Urine Appearance Clear Clear Voiding Methods Toilet Laboratory Results WBC 18.63 k/cumm (4.4-10.8) H 05/22/19 07:35 RBC 4.15 m/cumm (4.00-5.20) 05/22/19 07:35 Hgb 11.2 g/dL (12.0-15.5) L 05/22/19 07:35 Hct 34.7 % (36.0-46.0) L 05/22/19 07:35 MCV 83.6 fL (80-95) 05/22/19 07:35 MCH 27.0 pg (27.0-33.0) 05/22/19 07:35 MCHC 32.3 g/dL (32.0-36.0) 05/22/19 07:35 RDW 15.2 % (11.7-14.6) H 05/22/19 07:35 Plt Count 206 x1000/uL (130-400) 05/22/19 07:35 MPV 10.1 fL (8.0-11.0) 05/22/19 07:35 Immature Gran % 0.4 05/22/19 07:35 Neutrophils % 95.1 05/22/19 07:35 Lymphocytes % 2.6 05/22/19 07:35 Monocytes % 1.8 05/22/19 07:35 Eosinophils % 0.0 05/22/19 07:35 Basophils % 0.1 05/22/19 07:35 Absolute Neutrophils 17.72 k/cumm (1.2-6.7) H 05/22/19 07:35 Absolute Lymphocytes 0.48 k/cumm (1.2-3.4) L 05/22/19 07:35 Absolute Monocytes 0.34 k/cumm (0.11-0.7) 05/22/19 07:35 Absolute Eosinophils 0.00 k/cumm (0.0-0.7) 05/22/19 07:35 Absolute Basophils 0.02 k/cumm (0.0-0.2) 05/22/19 07:35 Differential Comment Agrees w/ instrument 05/21/19 18:35 RBC Morphology See below 05/21/19 18:35 Polychromasia Present 05/21/19 18:35 Sodium 140 mmol/L (136-145) 05/22/19 07:35 Potassium 3.9 mmol/L (3.5-5.1) 05/22/19 07:35 Chloride 103 mmol/L (98-107) 05/22/19 07:35 Carbon Dioxide 24.9 mmol/L (21.0-32.0) 05/22/19 07:35 Anion Gap 12.1 mmol/L (3-11) H 05/22/19 07:35 BUN 16 mg/dL (7-18) 05/22/19 07:35 Creatinine 0.64 mg/dL (0.55-1.02) 05/22/19 07:35 Estimated GFR/1.73 m2 >= 60.00 (mL/min/1.73m2) 05/22/19 07:35 Glucose 190 mg/dL (74-106) H D 05/22/19 07:35 Hemoglobin A1c 5.9 % (4.5-6.2) 05/22/19 07:35 Lactate 1.1 mmol/L (0.6-1.4) 05/21/19 20:15 Calcium 8.6 mg/dL (8.5-10.1) 05/22/19 07:35 Magnesium 2.2 mg/dL (1.8-2.4) 05/22/19 07:35 Total Bilirubin 0.3 mg/dL (0.2-1.0) 05/21/19 18:35 AST 45 U/L (15-37) H 05/21/19 18:35 ALT 21 U/L (14-59) 05/21/19 18:35 Alkaline Phosphatase 115 U/L (46-116) 05/21/19 18:35 Ammonia 23 umol/L (11-32) 05/22/19 07:35 Troponin I < 0.05 ng/Ml (<0.06) 05/22/19 07:35 NT-Pro-B Natriuret Pep 8153 pg/mL (<300) 05/21/19 18:35 Total Protein 7.5 g/dL (6.4-8.2) 05/21/19 18:35 Albumin 3.0 g/dL (3.4-5.0) L 05/21/19 18:35 Triglycerides 36 mg/dL (<150) 05/22/19 07:35 Total Cholesterol 102 mg/dL (<200) 05/22/19 07:35 LDL Cholesterol, Calc 61 mg/dL 05/22/19 07:35 HDL Cholesterol 34 mg/dL (40-60) L 05/22/19 07:35 Procalcitonin < 0.1 ng/mL 05/21/19 20:15
[2019-05-22] MEDS: Furosemide 40 MG TAB PO (19:50)
[2019-05-22 20:57] LABS: Legionella Ag Detection Urine Negative (Negative)
[2019-05-23] VITALS (16 sets, daily range): BP systolic 101–128; BP diastolic 68–79; PULSE 65–85; RESP 17–20; TEMP 36.3–37.1; O2SAT 83–98
[2019-05-23] MEDS: Enoxaparin 40 MG/0.4 ML SYR SC ×2 (00:07→23:54)
[2019-05-23] MEDS: DOXYCYCLINE 100 MG in Normal Saline 100 ML IVPB ×3 (00:19→23:54)
[2019-05-23] MEDS: Normal Saline Flush 10 ML SYR IVP ×3 (00:19→23:54)
[2019-05-23] MEDS: Pantoprazole 40 MG VIAL IVP ×2 (00:19→23:54)
[2019-05-23] MEDS: PIPERACILLIN/TAZO 3.375 GM in Normal Saline 50 ML IVPB ×4 (01:49→20:51)
[2019-05-23] MEDS: Nystatin 500000 UNITS/5 ML SUSP 5ML CUP PO ×5 (06:10→21:58)
[2019-05-23 07:06] LABS: Abs Immature Grans 0.08 k/cumm (0.0-0.09); Absolute Monocyte Count 1.03 k/cumm (0.11-0.7); HCT 33.3 % (36.0-46.0); HGB 10.9 g/dL (12.0-15.5); Immature Grans % 0.4; Lymphocytes % 6.5; Mean Corp. HGB Concentration 32.7 g/dL (32.0-36.0); Mean Corpuscular Hemoglobin 27.1 pg (27.0-33.0); Mean Corpuscular Volume 82.8 fL (80-95); Mean Platelet Volume 10.3 fL (8.0-11.0); Monocytes % 4.9; Neutrophils % 88.2; Platelet Count 228 x1000/uL (130-400); RBC 4.02 m/cumm (4.00-5.20); RBC Distribution Width 15.1 % (11.7-14.6); White Blood Cell Count 21.07 k/cumm (4.4-10.8)
[2019-05-23 07:11] LABS: Absolute Lymphocyte Count 1.37 k/cumm (1.2-3.4); Absolute Neutrophil Count 18.58 k/cumm (1.2-6.7)
[2019-05-23 07:32] LABS: Anion Gap 9.9 mmol/L (3-11); BUN 21 mg/dL (7-18); CO2 27.1 mmol/L (21.0-32.0); CREATININE 0.72 mg/dL (0.55-1.02); Calcium 8.9 mg/dL (8.5-10.1); Chloride 103 mmol/L (98-107); Glucose 111 mg/dL (74-106); Magnesium 1.8 mg/dL (1.8-2.4); NT-proBNP 3369 pg/mL (<300); Potassium 3.6 mmol/L (3.5-5.1); Sodium 140 mmol/L (136-145)
[2019-05-23] MEDS: Nicotine 21 MG/24 HR PATCH TD (08:53)
[2019-05-23] MEDS: Magnesium Chloride 64 MG TABCR 128 MG PO ×2 (08:54→20:49)
[2019-05-23] MEDS: Gabapentin 300 MG CAP PO ×3 (08:54→20:50)
[2019-05-23] MEDS: Furosemide 40 MG TAB PO ×2 (08:54→17:54)
[2019-05-23] MEDS: Aspirin E.C. 81 MG TABEC PO (08:55)
[2019-05-23] MEDS: guaiFENesin 600 MG TABCR PO ×2 (08:55→20:50)
[2019-05-23] MEDS: buPROPion-XL 150 MG TABCR 300 MG PO (08:55)
[2019-05-23] MEDS: Spironolactone 25 MG TAB 50 MG PO ×2 (08:56→17:55)
[2019-05-23] MEDS: Cholecalciferol (Vitamin D3) 1,000 UNIT TAB 2000 UNITS PO (08:56)
[2019-05-23] MEDS: Methadone Liquid 10 MG/ML 75 MG PO (09:02)
[2019-05-23] MEDS: Budesonide/Formoterol 160/4.5 6 GM 60 PUFF INH IH ×2 (09:03→20:51)
--- NOTE | 2019-05-23 10:54 | PHARADMIT ---
Admission Pharmacy Clinical Review BILATERAL LEFT LL PNEUMONIA-CAP/Sepsis, CHF EXACERBATION, HYPOXIA Code Status DNI Current Weight 49.2 kg Renally Cleared and Narrow Therapeutic Index Meds CrCl~52ml/min QTc Value / Action Taken QTC 390 BP Control, Fever BP 128/79 Afebrile Electrolytes reviewed K+ 3.6 Mag 1.8 DVT Prophylaxis Lovenox 40mg Opiate Usage / Scheduled Bowel Regimen Ordered none/yes bowel meds Plt/SCr for Heparin / Enoxaparin Plt 228 SCr 0.72 INR for Warfarin H/H stable, WBC/Bands H/H 10.9 WBC up 21.07 (IV steroid stopped) Antibiotic appropriateness Doxy IV/Zosyn 3.375 started 05/22/19 Cultures and Sensitivities sputum pending blood no growth x24h flu negative Procalcitonin <0.1 Surgical ABX d/c within 24 hr DM control / Insulin Dosing BG 111 Heart Failure (Check EF%) (MICKI's, B-Block, Diuretics) Lasix, Spironolactone, Lisinopril IV to PO Switch Doxy, Protonix when ready IV to oral Home Meds Reviewed Home Meds Not Ordered Carisprodol, HCTZ, Meloxicam, Mirtazapine Comments Probnp down 3369, weaning oxygen, watch I/O and weight w/diuresis Echo EF 65-70% Chronic Hep-C Methadone 75mg liquid-send daily
[2019-05-23] MEDS: Furosemide 20 MG/2 ML VIAL IVP (12:17)
--- NOTE | 2019-05-23 12:51 | W.NUTCONSULT ---
Date of service: 05/23/19 Time of Service: 12:52 Nutritional Consult ASSESSMENT: 64 year old female presents with PNA, ARF, fluid overload and sepsis. PMH: COPD, hx of polysubstance abuse, liver cirrohsis and methadone use. currently written for CHO diet with excellent PO Intake. Blood sugars monitored and controlled. BMI indicates acceptable range. screen by Vicki Anaya MS, RDN INTERVENTION: will monitor blood sugar, weight and po intake trends and adjust meal plan accordingly Time Spent in Nutritional Counseling and Treatment: 0 time spent face to face
--- NOTE | 2019-05-23 13:49 | PDOC.CMPRO ---
- If Service Date Differs Date of service: 05/23/19 Time of Service: 13:49 Care Management Progress Note S/O: Kira was sitting up on the side of the bed when CM met with her. She was smiling and engaged easily in conversation. Kira stated that she is feeling much better than when she first came to the hospital. Objectively her breathing is much better and she is maintaining her oxygen saturation above 90% on 1-2 liters of oxygen. Kira requested that CM assist with a letter for [facility] noting her last dose if methadone tomorrow before discharge. CM will provide same. A: Kira is a very pleasant 64 year old female admitted to [facility] on 05/21/19 with Pneumonia and CHF. P: Kira will likely be discharged home with a resumption of her current community services which include attending [facility] for methadone maintenance and support groups. She will transport via [facility] or private vehicle with a friend and follow up with her PCP and discharge plan of care. CM will continue to support patient, family and discharge planning needs.
--- NOTE | 2019-05-23 15:19 | W.PM.PROGNOT ---
Date of Service Date of service: 05/23/19 Time of Service: 15:21 Assessment and Plan Assessment and plan (1) Sepsis: Status: Acute Assessment and plan: Improving. Due to pneumonia. White blood cell count remains elevated, she was on IV steroids- discontinued yesterday. She is afebrile. Procalcitonin less than 0.1 on admission. Sputum culture pending. Flu swab negative. Blood cultures with no growth at 24 hours. Continue Zosyn and doxy. Continue to wean oxygen. Repeat CBC in the morning. Possible discharge in the next 24 to 48 hours. (2) CAP (community acquired pneumonia): Status: Acute Assessment and plan: As above. (3) Acute exacerbation of chronic obstructive pulmonary disease (COPD): Status: Acute Assessment and plan: As above. As well as nebulizer treatments as needed and Symbicort. No longer on IV steroids. Continue to wean oxygen as tolerated. Not on home oxygen. (4) Fluid overload: Status: Acute Assessment and plan: BNP elevated on admission to 8153, down to 3369 today. She received IV Lasix. Transitioned to oral Lasix yesterday. Continue to have mild fluid overload today, received an additional dose of IV Lasix today. Weight is down 1 kg. Continue to monitor daily weights and intake and output. (5) Continuous opioid dependence: Status: Acute Assessment and plan: Continue methadone per home dose. (6) GERD (gastroesophageal reflux disease): Status: Chronic Assessment and plan: Continue IV PPI. (7) Hypokalemia: Status: Acute Assessment and plan: Improved. Continue to monitor. (8) Hypomagnesemia: Status: Acute Assessment and plan: Improved. Continue to monitor. (9) Diabetes mellitus: Status: Acute Assessment and plan: Not on medication at home. Hemoglobin A1c 5.9. Continue to monitor blood glucose at with short acting insulin per sliding scale. 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 Monitor for GI bleeding, H&H stable. Continue diuretics. Ammonia level normal at 23. Follow up as outpatient. (11) DVT prophylaxis: Status: Acute Assessment and plan: Subcutaneous lovenox. (12) Discharge planning issues: Status: Acute Assessment and plan: She is a DNI. This case was discussed with Dr. Michaud who is in agreement. Subjective Subjective Interval history since last seen: Reports feeling better today, she is no longer experiencing shortness of breath. She continues to require oxygen to maintain oxygen saturation of 90%. She continues to cough occasionally, productive of white to yellow sputum. She denies wheezing, chest pain/pressure, palpitations. She is able to ambulate without shortness of breath today. She been monitored on telemetry and was noted to be in normal sinus rhythm, no further episodes of SVT. She is eating and drinking and tolerating her diet without nausea, vomiting or diarrhea. She denies dysuria or hematuria. She denies lower extremity edema today. Exam Narrative Exam Narrative: General: 64-year-old female, appears stated age, sitting up in bed, in no acute distress. She is alert and oriented x3, able to complete sentences without shortness of breath, pleasant and cooperative. HEENT: Normocephalic, atraumatic, extraocular movements intact, mucous membranes moist, white coating on tongue. Neck: Supple, no JVD. Cardiovascular: Heart has regular rate and rhythm, no murmur appreciated, non-tachycardic. Respiratory: Respirations appear even and unlabored, no shortness of breath while talking. Lungs with rales to bilateral bases, no wheezing noted. GI: Normoactive bowel sounds, abdomen soft, nontender on palpation, nondistended. Extremities: Trace pitting edema to bilateral lower extremities, faint pedal pulses bilaterally. Objective Objective Clinical Data: Abnormal lab results 05/23/19 05/23/19 Range/Units 06:25 06:25 WBC 21.07 H (4.4-10.8) k/cumm Hgb 10.9 L (12.0-15.5) g/dL Hct 33.3 L (36.0-46.0) % RDW 15.1 H (11.7-14.6) % Absolute Neutrophils 18.58 H (1.2-6.7) k/cumm Absolute Monocytes 1.03 H (0.11-0.7) k/cumm BUN 21 H (7-18) mg/dL Glucose 111 H D (74-106) mg/dL Vital Signs Temperature 37.1 C 05/23/19 07:55 Temperature Source Tympanic 05/23/19 07:55 Pulse 76 05/23/19 07:55 Pulse Rhythm Regular 05/23/19 08:50 Pulse 112 H 05/21/19 20:20 Respiratory Rate 18 05/23/19 07:55 Respiratory Effort 05/23/19 08:50 Respiratory Depth Shallow 05/23/19 08:50 Respiratory Pattern Normal 05/23/19 08:50 Blood Pressure 128/79 05/23/19 07:55 Blood Pressure Mean 82 05/21/19 20:15 Blood Pressure Position Sitting 05/21/19 18:32 Pulse Oximetry 92 L 05/23/19 10:29 Oxygen Delivery Method Nasal Cannula 05/23/19 10:29 Oxygen Flow Rate 1 05/23/19 10:29 Fraction of Inspired Oxygen (FIO2) 90 05/22/19 04:01 Pain Level 0 05/23/19 07:55 Comment 05/21/19 18:32 Intake & Output 05/22/19 05/23/19 05/23/19 23:59 11:59 23:59 Intake Total 1210 / 1670 940 / 1300 360 / 1300 Output Total 1200 / 1200 350 / 1250 900 / 1250 Balance 10 / 470 590 / 50 -540 / 50 Weight 49.2 kg Intake: IV 250 / 470 220 / 220 Oral 960 / 1200 720 / 1080 360 / 1080 Output: Urine 1200 / 1200 350 / 1250 900 / 1250 Other: Urine Color Yellow Yellow Yellow Urine Appearance Clear Clear Clear Urine Odor Normal None Voiding Methods Toilet Toilet Toilet Laboratory Results WBC 21.07 k/cumm (4.4-10.8) H 05/23/19 06:25 RBC 4.02 m/cumm (4.00-5.20) 05/23/19 06:25 Hgb 10.9 g/dL (12.0-15.5) L 05/23/19 06:25 Hct 33.3 % (36.0-46.0) L 05/23/19 06:25 MCV 82.8 fL (80-95) 05/23/19 06:25 MCH 27.1 pg (27.0-33.0) 05/23/19 06:25 MCHC 32.7 g/dL (32.0-36.0) 05/23/19 06:25 RDW 15.1 % (11.7-14.6) H 05/23/19 06:25 Plt Count 228 x1000/uL (130-400) 05/23/19 06:25 MPV 10.3 fL (8.0-11.0) 05/23/19 06:25 Immature Gran % 0.4 05/23/19 06:25 Neutrophils % 88.2 05/23/19 06:25 Lymphocytes % 6.5 05/23/19 06:25 Monocytes % 4.9 05/23/19 06:25 Eosinophils % 0.0 05/23/19 06:25 Basophils % 0.0 05/23/19 06:25 Absolute Neutrophils 18.58 k/cumm (1.2-6.7) H 05/23/19 06:25 Absolute Lymphocytes 1.37 k/cumm (1.2-3.4) 05/23/19 06:25 Absolute Monocytes 1.03 k/cumm (0.11-0.7) H 05/23/19 06:25 Absolute Eosinophils 0.00 k/cumm (0.0-0.7) 05/23/19 06:25 Absolute Basophils 0.00 k/cumm (0.0-0.2) 05/23/19 06:25 Differential Comment Agrees w/ instrument 05/21/19 18:35 RBC Morphology See below 05/21/19 18:35 Polychromasia Present 05/21/19 18:35 Sodium 140 mmol/L (136-145) 05/23/19 06:25 Potassium 3.6 mmol/L (3.5-5.1) 05/23/19 06:25 Chloride 103 mmol/L (98-107) 05/23/19 06:25 Carbon Dioxide 27.1 mmol/L (21.0-32.0) 05/23/19 06:25 Anion Gap 9.9 mmol/L (3-11) 05/23/19 06:25 BUN 21 mg/dL (7-18) H 05/23/19 06:25 Creatinine 0.72 mg/dL (0.55-1.02) 05/23/19 06:25 Estimated GFR/1.73 m2 >= 60.00 (mL/min/1.73m2) 05/23/19 06:25 Glucose 111 mg/dL (74-106) H D 05/23/19 06:25 Hemoglobin A1c 5.9 % (4.5-6.2) 05/22/19 07:35 Lactate 1.1 mmol/L (0.6-1.4) 05/21/19 20:15 Calcium 8.9 mg/dL (8.5-10.1) 05/23/19 06:25 Magnesium 1.8 mg/dL (1.8-2.4) 05/23/19 06:25 Total Bilirubin 0.3 mg/dL (0.2-1.0) 05/21/19 18:35 AST 45 U/L (15-37) H 05/21/19 18:35 ALT 21 U/L (14-59) 05/21/19 18:35 Alkaline Phosphatase 115 U/L (46-116) 05/21/19 18:35 Ammonia 23 umol/L (11-32) 05/22/19 07:35 Troponin I < 0.05 ng/Ml (<0.06) 05/22/19 07:35 NT-Pro-B Natriuret Pep 3369 pg/mL (<300) 05/23/19 06:25 Total Protein 7.5 g/dL (6.4-8.2) 05/21/19 18:35 Albumin 3.0 g/dL (3.4-5.0) L 05/21/19 18:35 Triglycerides 36 mg/dL (<150) 05/22/19 07:35 Total Cholesterol 102 mg/dL (<200) 05/22/19 07:35 LDL Cholesterol, Calc 61 mg/dL 05/22/19 07:35 HDL Cholesterol 34 mg/dL (40-60) L 05/22/19 07:35 Procalcitonin < 0.1 ng/mL 05/21/19 20:15 Urine Legionella Ag Negative (Negative) 05/22/19 03:00
[2019-05-24] VITALS (8 sets, daily range): BP systolic 103–117; BP diastolic 67–76; PULSE 68–87; RESP 8–19; TEMP 36.6–37; O2SAT 92–97
[2019-05-24] MEDS: PIPERACILLIN/TAZO 3.375 GM in Normal Saline 50 ML IVPB ×2 (01:28→09:27)
[2019-05-24] MEDS: Nystatin 500000 UNITS/5 ML SUSP 5ML CUP PO ×2 (06:14→09:27)
[2019-05-24] MEDS: Albuterol/Ipratropium 3 ML UPD VIAL UPD (06:19)
--- NOTE | 2019-05-24 07:07 | W.INDIABCONS ---
Date of service: 05/24/19 Time of Service: 07:07 Diabetes Inpatient Consult DESCRIPTION/ASSESSMENT: Appreciate diabetes consult for Kira Odonnell who is hospitalized with pneumonia. She has a h/o diabetes and had elevated blood sugars here on admission; unclear if she has received steroids, but yesterday blood sugars all in the pre-diabetes range and A1c 5.9. BMI 24 No medication for diabetes. INTERVENTION: No diabetes intervention at this time as she is able to maintain her blood sugars in the pre-diabetes. PLAN: Will follow blood sugars during hospitalization. Time Spent in Nutritional Counseling and Treatment: 0 minutes face to face
[2019-05-24 07:09] LABS: Abs Immature Grans 0.05 k/cumm (0.0-0.09); Absolute Basophil Count 0.01 k/cumm (0.0-0.2); Absolute Monocyte Count 0.96 k/cumm (0.11-0.7); Basophils % 0.1; Eosinophils % 1.9; HCT 38.1 % (36.0-46.0); HGB 12.3 g/dL (12.0-15.5); Immature Grans % 0.4; Lymphocytes % 19.7; Mean Corp. HGB Concentration 32.3 g/dL (32.0-36.0); Mean Corpuscular Hemoglobin 26.9 pg (27.0-33.0); Mean Corpuscular Volume 83.4 fL (80-95); Mean Platelet Volume 9.8 fL (8.0-11.0); Monocytes % 7.2; Neutrophils % 70.7; Platelet Count 306 x1000/uL (130-400); RBC 4.57 m/cumm (4.00-5.20); RBC Distribution Width 15.4 % (11.7-14.6); White Blood Cell Count 13.38 k/cumm (4.4-10.8)
[2019-05-24 07:11] LABS: Absolute Eosinophil Count 0.25 k/cumm (0.0-0.7); Absolute Lymphocyte Count 2.64 k/cumm (1.2-3.4); Absolute Neutrophil Count 9.46 k/cumm (1.2-6.7)
[2019-05-24 07:19] LABS: Anion Gap 10.8 mmol/L (3-11); BUN 22 mg/dL (7-18); CO2 29.2 mmol/L (21.0-32.0); CREATININE 0.87 mg/dL (0.55-1.02); Chloride 99 mmol/L (98-107); Glucose 70 mg/dL (74-106); Magnesium 1.6 mg/dL (1.8-2.4); Potassium 3.7 mmol/L (3.5-5.1); Sodium 139 mmol/L (136-145)
[2019-05-24] MEDS: Budesonide/Formoterol 160/4.5 6 GM 60 PUFF INH IH (07:46)
[2019-05-24] MEDS: Furosemide 40 MG TAB PO (08:17)
[2019-05-24] MEDS: Spironolactone 25 MG TAB 50 MG PO (08:17)
[2019-05-24] MEDS: Nicotine 21 MG/24 HR PATCH TD (08:18)
[2019-05-24] MEDS: buPROPion-XL 150 MG TABCR 300 MG PO (08:18)
[2019-05-24] MEDS: Magnesium Chloride 64 MG TABCR 128 MG PO (08:18)
[2019-05-24] MEDS: Aspirin E.C. 81 MG TABEC PO (08:18)
[2019-05-24] MEDS: Gabapentin 300 MG CAP PO (08:18)
[2019-05-24] MEDS: Cholecalciferol (Vitamin D3) 1,000 UNIT TAB 2000 UNITS PO (08:18)
[2019-05-24] MEDS: Methadone Liquid 10 MG/ML 75 MG PO (08:19)
[2019-05-24] MEDS: Normal Saline Flush 10 ML SYR IVP (09:28)
[2019-05-24] MEDS: MAGNESIUM SULFATE 2 GM/50 ML BAG IVPB (10:14)
--- NOTE | 2019-05-24 10:36 | DSE_ITS ---
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 Discharge Plan Disposition Patient Disposition: HOME Condition: Improving Discharge Details Chief Complaint: SOB Reason For Visit: PNEUMONIA,CHF EXACERBATION,HYPOXIA Admit Date/Time: 05/21/19 20:02 Admit Provider: Sujata Zimmer Attending Provider: Sujata Zimmer Primary Care Provider: Kirsten Friedman ED Provider: Geovanna [facility] Hospital Course: Kira Odonnell is a very pleasant 64-year-old female with a past medical history significant for non-oxygen dependent COPD, current smoker, cirrhosis of the liver due to hepatitis C, hypertension, chronic pain on methadone through [facility] who presented to the emergency department on 05/21/2019 with reports of cough and worsening shortness of breath over 3 days prior to her presentation. She denied fevers or chills. In the emergency department, her oxygen saturation was 57% on room air which improved rapidly with oxygen via nasal cannula. She was also noted to have rales on examination and bilateral lower extremity edema. She had an EKG which showed normal sinus rhythm with a rate of 109 with no acute ischemic changes. Her labs showed white blood cell count of 25, stable anemia, her BNP was over 8000, her troponin was mildly elevated at 0.1. She had a chest x-ray which showed chronic interstitial changes as well as bilateral pneumonia on the initial reading. she received nebulizer treatments, lasix and antibiotics and was admitted to the med/surg floor for further observation and management. She was initially on IV steroids, but she was not wheezing the following day and the steroids were discontinued. She received zosyn and doxycycline x4 days while hospitalized. She improved over the following days. She was weaned off of oxygen. By the day of discharge, she was no longer short of breath, she denied wheezing, she was no longer requiring oxygen. Her white blood cell was down to 13.38. Her BNP improved to 3369 the day prior to discharge. Her troponin was 0.1-0.12- <0.05 at the time of admission. She had an echocardiogram which showed LVEF of 65-70%, diastolic function was indeterminate. Her RV was mildly dilated with mildly reduced systolic function, mild mitral regurgitation, mild to moderate tricuspid regurgitation, RVSP 38-46 mmHg. She received IV lasix initially and transitioned to oral. She did not have lower extremity edema by the time of discharge. Her lungs continued to have adventitious sounds, however, some of this may be chronic. She is discharged home to complete a full 5-day course of antibiotics. She will follow up with her PCP next week. She will have repeat labs next week to reassess her white blood cell count after completion of antibiotics. She is referred for PFTs for after she is recovered from this acute illness. She would also benefit from pulmonary rehab. Respiratory therapy will follow up with the patient. Home Meds and New Rx's Prescriptions: New aspirin 81 mg Tablet,Delayed Release (Dr/Ec) 81 mg PO DAILY Qty: 30 RF: 0 nystatin 100,000 unit/mL Suspension 500,000 units PO 5X/DAY 5 Days Qty: 125 RF: 0 omeprazole 20 mg capsule,delayed release(DR/EC) 20 mg PO DAILY Qty: 30 RF: 0 doxycycline hyclate 100 mg capsule 100 mg PO BID Qty: 4 RF: 0 Continued gabapentin 300 mg capsule 300 mg PO TID Qty: 90 RF: 3 ipratropium-albuterol 0.5 mg-3 mg(2.5 mg base)/3 mL solution for nebulization 3 ml UPD Q6H PRN PRN (Reason: shortness of breath or wheezing) Qty: 90 RF: 3 cholecalciferol (vitamin D3) 2,000 unit capsule 2,000 unit PO DAILY RF: 0 guaifenesin 1,200 mg tablet extended release 12hr 1,200 mg PO Q12H Qty: 14 RF: 1 methadone 10 mg/mL concentrate 75 mg PO DAILY RF: 0 (DME) compressor, for nebulizer device See Dose Instructions .ROUTE .MEDSUPPLY Qty: 1 RF: 0 furosemide [Lasix] 40 mg tablet 40 mg PO BID Qty: 60 RF: 3 benzonatate [Tessalon Perles] 100 mg capsule 100 mg PO TID PRN (Reason: cough) Qty: 30 RF: 1 spironolactone 25 mg tablet 50 mg PO BID Qty: 60 RF: 3 hydroxyzine pamoate [Vistaril] 50 mg capsule 50 mg PO BID PRN (Reason: itching) Qty: 60 RF: 1 polyethylene glycol 3350 [Miralax] 17 GM powder in packet 17 g PO DAILY PRNRF: 0 triamcinolone acetonide 15 GM cream 1 lorraine Topical TID PRNQty: 30 RF: 2 ibuprofen 200 MG capsule 400 mg PO q8h PRN PAIN Qty: 200 RF: 1 mirtazapine 30 mg tablet 30 mg PO HS Qty: 30 RF: 11 bupropion HCl 300 mg tablet extended release 24 hr 300 mg PO DAILY Qty: 90 RF: 3 Hold Instructions: Pt Stopped/Never Started albuterol sulfate [ProAir HFA] 90 mcg/actuation HFA aerosol inhaler 1 - 2 puff Inhalation Q6H PRN PRN (Reason: bronchospasm) Qty: 3 RF: 1 albuterol sulfate 2.5 mg /3 mL (0.083 %) solution for nebulization 2.5 mg Continuous Nebulization Q4H PRN (Reason: shortness of breath or wheezing) Qty: 180 RF: 1 Breo Ellipta 200-25 mcg/dose blister with device 1 inh IH DAILY Qty: 60 RF: 3 lisinopril 10 mg tablet 10 mg PO DAILY Qty: 90 RF: 3 magnesium chloride [Mag 64] 64 mg Tablet,Delayed Release (Dr/Ec) 128 mg PO BID Qty: 120 RF: 0 Discharge Instructions Instructions: Community Acquired Pneumonia (DC) Additional Instructions: Continue antibiotics until they are gone. You will need to have follow up blood work on Tuesday05/28/19. Continue to use IS. You may use the Symbicort inhaler (that you have been using here) until you can fill your Breo. You have been referred for pulmonary function testing after you have recovered from this acute illness. You would also likely benefit from pulmonary rehab. Respiratory therapy will contact you. Take care! Stand Alone Forms: Nursing Discharge Form Referrals: Krechetoff,Kirsten, DO [Primary Care Provider] - 06/01/19 8:00 am Activity:: Activity as Tolerated Equipment/Supplies:: No Equipment Needed Diet:: heart healthy, carb counting diet Discharge Orders Discharge Orders: Discharge Order (Routine); Ordered 05/24/19 Ordered By: Loli Nicholson Other Ambulatory Orders: Complete Blood Count No Diff (Routine) Timeframe: [id number] Facility: [facility] - Location: Laboratory Outpatient Ordered By: Loli Nicholson PFT ([place]) (Outpt) (ONCE) Facility: [facility] - Location: Respiratory Therapy Ordered By: Loli Nicholson DS: Summary Status at Discharge Functional status at discharge: independent ambulation Overall status at discharge: patient is progressing back to baseline Mental Status: mental status grossly normal Speech and Movement: speech and movement normal Mood: congruent mood Affect: normal affect Exam Narrative Exam Narrative: General: 64-year-old female, appears stated age, sitting up in bed, in no acute distress. She is alert and oriented x3, able to complete sentences without shortness of breath, pleasant and cooperative. HEENT: Normocephalic, atraumatic, extraocular movements intact, mucous membranes moist. Neck: Supple, no JVD. Cardiovascular: Heart has regular rate and rhythm, no murmur appreciated, non- tachycardic. Respiratory: Respirations appear even and unlabored, no shortness of breath while talking. Lungs with rales to bilateral bases, no wheezing noted. GI: Normoactive bowel sounds, abdomen soft, nontender on palpation, nondistended. Extremities: Trace pitting edema to bilateral lower extremities, faint pedal pulses bilaterally. Psych Mental Status: mental status grossly normal Speech and Movement: speech and movement normal Mood: congruent mood Affect: normal affect DS: Data Vitals/I&O Vitals and I&O: Vital Signs Temperature 36.9 C 05/24/19 04:15 Temperature Source Tympanic 05/24/19 04:15 Pulse 87 05/24/19 06:49 Pulse Rhythm Regular 05/24/19 08:41 Pulse 112 H 05/21/19 20:20 Respiratory Rate 18 05/24/19 07:35 Respiratory Effort 05/24/19 08:41 Respiratory Depth Normal 05/24/19 08:41 Respiratory Pattern Normal 05/24/19 08:41 Blood Pressure 109/72 05/24/19 04:15 Blood Pressure Mean 82 05/21/19 20:15 Blood Pressure Position Sitting 05/21/19 18:32 Pulse Oximetry 92 L 05/24/19 07:51 Oxygen Delivery Method Room Air 05/24/19 07:51 Oxygen Flow Rate 0 05/24/19 07:51 Fraction of Inspired Oxygen (FIO2) 90 05/22/19 04:01 Pain Level 0 05/24/19 08:19 Comment 05/21/19 18:32 Intake & Output 05/23/19 05/23/19 05/24/19 11:59 23:59 11:59 Intake Total 940 / 2210 1270 / 2210 160 / 160 Output Total 350 / 3600 3250 / 3600 2350 / 2350 Balance 590 / -1390 -1980 / -1390 -2190 / -2190 Weight 49.2 kg 47 kg Intake: IV 220 / 470 250 / 470 160 / 160 Oral 720 / 1740 1020 / 1740 Output: Urine 350 / 3600 3250 / 3600 2350 / 2350 Other: Urine Color Yellow Yellow Yellow Urine Appearance Clear Clear Clear Urine Odor None Normal Comment Patient voiding to bathroom Voiding Methods Toilet Toilet Toilet Data Completed and Pending Completed studies during hospitalization [Text1]: 05/21/19: EXAM: XR CHEST 2V PA LATERAL INDICATION: cough, SOB. COMPARISON: XR CHEST 2V PA LATERAL from 10/01/2018 XR PORTABLE CHEST AP from 10/03/2018 XR CHEST 2V PA LATERAL from 10/31/2018 TECHNIQUE: 2D digital imaging was performed. FINDINGS: The heart size is within normal limits. There are increased pulmonary densities throughout, greater at the lung bases. This appears chronic. There are chronic interstitial changes. Superimposed pneumonia is not excluded. Initial read of same chest x-ray: Exam(s) PROCEDURE INFORMATION: Exam: XR Chest, 2 Views Exam date and time: 05/21/2019 7:43 PM Age: 64 years old Clinical history: Shortness of breath; Patient HX: SOB, copd, smoker TECHNIQUE: Imaging protocol: XR of the chest Views: 2 views. COMPARISON: CR XR CHEST 2V PA LATERAL 05/12/2018 13:01 FINDINGS: Lungs: Chronic interstitial lung disease. Pleural space: Unremarkable. No pleural effusion. No pneumothorax. Heart/Mediastinum: Increasing bilateral opacifications involving the upper and lower lobes. Stable cardiomediastinal silhouette. Bones/joints: Multilevel degenerative scoliotic changes of the thoracic and lumbar spine. Kyphosis. Suspect old right lateral rib fractures. IMPRESSION: Bilateral pneumonia with greater involvement of the lung bases. 05/22/19: EXAM: Comprehensive 2D, Doppler, and color-flow Echocardiogram Patient Location: In-Patient Rabies Inspector: Katie Shaw RDCS (AE) Rhythm: NSR Indications: CHF Conclusion Left Ventricle : The left ventricle is normal size. Left ventricular systolic function is hyperdynamic. There is normal left ventricular wall thickness. There is normal LV segmental wall motion. LVEF is estimated to be 65-70%. Diastolic function is indeterminate. Right Ventricle : The right ventricle is boarderline enlarged by basal measurement but appears enlarged visually. Right ventricular systolic function appears to be mildly reduced. Atria : Left atrium is enlarged. The right atrium size is mildly enlarged. Aortic Valve : The Aortic valve is sclerotic. Aortic valve is trileaflet. No aortic regurgitation is present. There is no aortic valvular stenosis. Mitral Valve : Mitral valve leaflets are mildly thickened. Mild mitral regurgitation. No evidence of mitral valve stenosis. Tricuspid Valve : Tricuspid valve leaflets are thickened but open well. Mild to moderate tricuspid regurgitation. Great Vessels : The IVC is mildly dilated but collapses >50% with inspiration. Estimated RVSP is 38-46 mmHg. Compared to echocardiogram dated 10/24/2018: There is no significant change. Labs on day of discharge: Labs from last 24 hours 05/24/19 05/24/19 06:40 06:40 WBC 13.38 H D RBC 4.57 Hgb 12.3 Hct 38.1 MCV 83.4 MCH 26.9 L MCHC 32.3 RDW 15.4 H Plt Count 306 MPV 9.8 Immature Gran % 0.4 Neutrophils % 70.7 Lymphocytes % 19.7 Monocytes % 7.2 Eosinophils % 1.9 Basophils % 0.1 Absolute Neutrophils 9.46 H Absolute Lymphocytes 2.64 Absolute Monocytes 0.96 H Absolute Eosinophils 0.25 Absolute Basophils 0.01 Sodium 139 Potassium 3.7 Chloride 99 Carbon Dioxide 29.2 Anion Gap 10.8 BUN 22 H Creatinine 0.87 Estimated GFR/1.73 m2 >= 60.00 Glucose 70 L Calcium 9.0 Magnesium 1.6 L Preliminary micro results at discharge 05/22/19 00:40 Sputum Culture - Preliminary Sputum 05/21/19 23:25 Blood Culture - Preliminary Blood NO GROWTH 48 HOURS 05/21/19 23:20 Blood Culture - Preliminary Blood NO GROWTH 48 HOURS PFS Medical History Abnormal CT of the chest (Acute 03/18/17) stable 2mm nodule in AILYN Annual Chest CT for lung cancer screening recommended Acute renal failure (Resolved 04/29/14) a. creatinine bumped from 0.8 to 2.9 b. h/o renal failure 06/2013, presented with creatinine 5.4, which normalized with IV fluids Acute right-sided low back pain without sciatica (Acute 06/08/17) Pain rad thru buttock, but not down leg. Priformis Syndr? [ ] PT [ ] Hx Pain Clinic (Injctn #1 helped, #2 did not). Occasional relief from SOMA. Trial GABAPENTIN 06/09/18.in past Anxiety and depression (Chronic) Bilateral pneumonia (Acute 04/29/14) A. Bilateral lower lobes Cirrhosis Cirrhosis of liver (Chronic) a. History of Hep C treatment. b. Liver biopsy 2005 positive for cirrhosis. 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 AFP levels every six months and ruq US every 12 months COPD (chronic obstructive pulmonary disease) (Chronic) Ongoing tobacco use. COPD (chronic obstructive pulmonary disease) Diabetes (Chronic) On Metformin. Diabetes mellitus Essential hypertension (Chronic) Well maintained, meds tolerated. Hepatitis C HTN (hypertension) Hypertension (Chronic) Methadone dependence (Chronic) Neuropathy of right radial nerve (Chronic) a. recently had multiple falls and a hematoma around her humerus b. resolving Pleuritic chest pain (Acute 04/29/14) a. left sided Polysubstance abuse (Chronic) a. h/o opiate overdose 06/2013 and 11/2013 b. recently started in [facility] program 03/13/2014 on oral methadone (missed her dose today) Shortness of breath (Acute) Spinal stenosis (Chronic) a. MRI 10/2009, showed L4-5 narrowing Tobacco abuse (Chronic) Tobacco use disorder Surgical History Appendectomy (01/30/07) H/O: hysterectomy (Chronic) History of ankle surgery (Acute) left S/P bilateral breast lumpectomy (Acute) Family History Mother Myocardial infarction Stroke Sister Diabetes Myocardial infarction Sister Diabetes Father Diabetes Alcohol abuse Myocardial infarction Social History Smoking/Tobacco Use Status: Current-Occasional Tobacco Type: cigarettes Smoking packs per day: 1 Smoking cigarettes per day: 20.0 Years smoked: 40 Smoking pack- years: 40.00 Quit status: considering quitting Counseling given: other Details: pt feels motivated and states she doesnt enjoy them now Alcohol Intake: never Drug use: Never Substance use type: does not use Adopted: No Household members: none Housing: house Communication Needs: None Pets and animals: Yes Pets and animals: cat(s) What is your relationship status?: Panel score (0-1 are the most socially isolated patients): 0 What type of physical activity do you participate in: none Seatbelt use: always Drive intox or ride w/intox 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
[2019-05-24] MEDS: Insulin Aspart 300 UNITS/3 ML PEN SC (12:50)
--- NOTE | 2019-05-24 15:17 | CHAPLAIN ---
Kira and I recognized each other from previous admissions. Kira looked well and healthy compared to previous admissions a few years ago. She said she feeling good and her life is going well, although she had difficulty breathing when she was admitted and that was scary for her, she said. She is looking foreword to getting home to be with her cat. Kira said she has a neighbor who looks out for her and is taking care of the cat.
[2019-05-24 15:38] LABS: Streptococcus Pneumoniae Ag, U Negative (Negative)
--- NOTE | 2019-05-24 16:18 | PDOC.CMDIS ---
- If Service Date Differs Date of service: 05/24/19 Time of Service: 16:18 LACE Index Scoring Tool - Questions: Length of Stay (in days): 3 Acuity (Admit via E.D.?): Yes Comorbidities: Diabetes w/o Complication, Congestive Heart Failure, Chronic Pulmonary Disease E.D. Visits: 2 - Answers: Total Score: 13 Risk of Readmission: High Risk Care Management Discharge Reason for Hospitalization: Sepsis Discharge Plan: Kiar will be discharged home with no new services. She will continue to attend programs at [facility] [place] and follow up with her PCP. Kira has been referred for a PFT and , if she qualifies, Pulmonary Rehab. Kira will transport home via private vehicle with a friend. Patient/Family Education Needs: Discharge plan, limitations, follow up plan, Ask Me Three. - MH Services (Omit if N/A) Current MH Services: Other ([facility] [place] support group and methadone maintenance)
[2019-05-24 23:01] LABS: Mycoplasma Pneumoniae PCR Negative; Specimen source SPUTUM
== END 2019-05-24 13:40 | disposition home or self-care (01) | DRG 871 ==
LOC: ER 20:10 → MS 21:01
PROVIDERS: Nurse Practitioner; Admitting Provider Internal Medicine; Emergency Provider Physician Assistant; PCP Student in an Organized Health Care Education/Training Program; Visit Provider Family Medicine
DX: A41.9 Sepsis, unspecified organism (principal); J18.9 Pneumonia, unspecified organism; J96.01 Acute respiratory failure with hypoxia; J44.0 Chronic obstructive pulmonary disease with (acute) lower respiratory infection; J44.1 Chronic obstructive pulmonary disease with (acute) exacerbation; F17.210 Nicotine dependence, cigarettes, uncomplicated; E87.70 Fluid overload, unspecified; K74.69 Other cirrhosis of liver; B19.20 Unspecified viral hepatitis C without hepatic coma; G89.29 Other chronic pain; Z79.891 Long term (current) use of opiate analgesic; R79.89 Other specified abnormal findings of blood chemistry; K21.9 Gastro-esophageal reflux disease without esophagitis; E87.6 Hypokalemia; E83.42 Hypomagnesemia; E11.9 Type 2 diabetes mellitus without complications; I10 Essential (primary) hypertension; Z71.3 Dietary counseling and surveillance
CPT/HCPCS: 36415; 80048; 80053; 80061; 84145; 87040; 87449; 93005; 93306; 94640; 96361; 96374; 96375; 99223; 99232; 99239; 99285; J1650; 71046; 82140; 83036; 83605; 83735; 83880; 84484; 85025; 87070; 87205; 87450; 87581; 93010; J1941; J2405; J2543; J2930; J7620

== ENCOUNTER 2019-09-19 06:13 | Emergency (ER) | payer MEDICARE, MEDICAID, SELFPAY ==
[2019-09-19] VITALS (31 sets, daily range): BP systolic 109–143; BP diastolic 69–103; PULSE 91–121; RESP 17–34; TEMP 36.5–37.1; O2SAT 94–99
--- NOTE | 2019-09-19 06:09 | ED.GENADUL_ITS ---
Discharge Plan Disposition Patient Disposition: HOME Condition: Stable Discharge Details Chief Complaint: SOB Clinical Impression: Acute exacerbation of chronic obstructive pulmonary disease Primary Care Provider: Kirsten Friedman ED Provider: Severino Odonnell Home Meds and New Rx's Prescriptions: New cefdinir 300 mg capsule 300 mg PO Q12H 10 Days Qty: 20 RF: 0 prednisone 20 mg tablet 40 mg PO DAILY 5 Days Qty: 10 RF: 0 Continued ipratropium-albuterol 0.5 mg-3 mg(2.5 mg base)/3 mL solution for nebulization 3 ml UPD Q6H PRN PRN (Reason: shortness of breath or wheezing) Qty: 90 RF: 3 cholecalciferol (vitamin D3) 2,000 unit capsule 2,000 unit PO DAILY RF: 0 Ensure Original 0.04-1.05 gram-kcal/mL liquid See Rx Instructions PO BID Qty: 237 RF: 3 methadone 10 mg/mL concentrate 75 mg PO DAILY RF: 0 (DME) compressor, for nebulizer device See Dose Instructions .ROUTE .MEDSUPPLY Qty: 1 RF: 0 spironolactone 25 mg tablet 50 mg PO BID Qty: 60 RF: 3 polyethylene glycol 3350 [Miralax] 17 GM powder in packet 17 g PO DAILY PRNRF: 0 triamcinolone acetonide 15 GM cream 1 lorraine Topical TID PRNQty: 30 RF: 2 ibuprofen 200 MG capsule 400 mg PO q8h PRN PAIN Qty: 200 RF: 1 lisinopril 10 mg tablet 10 mg PO DAILY Qty: 90 RF: 3 gabapentin 300 mg capsule 300 mg PO TID Qty: 90 RF: 3 albuterol sulfate [ProAir HFA] 90 mcg/actuation HFA aerosol inhaler 1 - 2 puff Inhalation Q6H PRN PRN (Reason: bronchospasm) Qty: 3 RF: 6 Breo Ellipta 200-25 mcg/dose blister with device 1 inh IH DAILY Qty: 60 RF: 3 hydroxyzine pamoate [Vistaril] 50 mg capsule 50 mg PO BID PRN (Reason: itching) Qty: 60 RF: 1 mirtazapine 30 mg tablet 30 mg PO HS Qty: 30 RF: 11 bupropion HCl 300 mg tablet extended release 24 hr 300 mg PO DAILY Qty: 90 RF: 3 Hold Instructions: Pt Stopped/Never Started magnesium chloride [Mag 64] 64 mg Tablet,Delayed Release (Dr/Ec) 128 mg PO BID Qty: 120 RF: 0 aspirin 81 mg Tablet,Delayed Release (Dr/Ec) 81 mg PO DAILY Qty: 30 RF: 0 furosemide 20 mg Tablet 20 mg PO BID RF: 0 Discharge Instructions Instructions: COPD (Chronic Obstructive Pulmonary Disease) (ED) Additional Instructions: You were offered admission to the hospital which you have declined. Please return should you have worsening difficulty breathing, high fever, or any other acute concerns. Please go directly to the coronavirus testing tent. Take antibiotics as well as prednisone as prescribed. 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 She denies any chest pain/pressure, fevers, chills, travel, sick contacts. She apparently had a room air saturation when EMS arrived of 90- 92% on room air, was given a ebulizer treatment and she arrives hd stable and states she does feel improved with o2 saturation of 97% on room air. She has also had n/v without abodminal pain for a day. She has mild wheezing at the apices bilaterally, able to speak in complete sentences though by the end of the sentences does appear to have some dyspnea. She has no leg swelling or calf pain. Suspect her symptoms are most likely due to copd, given normal o2 now and hr of 120 will hold on a neb and give steroids. Will obtain CTA as her wells score is moderate for PE. NO chest pain pressure so doubt acs at this time. No evidence of volume overload to suggest chf. No infectious symptoms to suggest pna but her shortness of breath could be from covid19, will order screening labs for this and also order the covid19 screen, if she's admitted will be done on the floor and if d/c will set her up to have done as outpatient. Given the unexplained n/v will obtain ct abd/pelvis to eval for sbo among other pathology pt remains hd stable, awaiting imaging. Labs show no significant abnormalities significantly different from baseline, has chronic leukocytosis, no significant changes on cmp. D dimer is elevated, pending ct at this time. Pt will be signed out pending imaging results and response to steroids and zofran Differential Diagnosis Differential Diagnosis: copd, chf, acs, PE, covid19 Medical Records Medical records reviewed: Yes I reviewed the patient's medical records. Lab Data Lab results reviewed: Yes I reviewed the patient's lab results. ECG Data Attestation: I personally reviewed and interpreted this ECG (s) as follows: Prior ECG tracings: not available for review Interpretation: sinus tachycardia rate of 102 pr 128 , qtc [address] t wave ischemic findings <Severino Odonnell MD - Last Filed: 09/19/19 11:51> Received signout from Dr. Troy. Please see his note regarding details of the initial presentation, exam, plan of care. Patient's laboratories revealed a white blood cell count of 18, electrolytes with slightly low potassium of 3.3, lactate 2.2, CRP 8, BNP 99, negative pro calcitonin. D-dimer 1817 Images: CT with pulmonary parenchymal abnormalities: Diffuse chronic interstitial disease, ground glass densities, scattered peripheral consolidations. See formal report. Abdominal images unremarkable. Followup chest CT recommended 3-6 months. Patient states that she wishes to be discharged after we talked about the benefits of admission. She certainly is at risk for coronavirus, will require outpatient screening. Discussed with her that she risks worsening decline, permanent disability, including by declining admission. She has capacity to make decisions in my opinion. We discussed indications for her to return. We will place her on oral antibiotics, as well as burst of steroids. The patient voices understanding of both the risks of declining admission as well as plan of care. Lab Data Lab results reviewed: Yes I reviewed the patient's lab results. Labs: Laboratory Results - last 24 hr 09/19/19 09/19/19 09/19/19 06:25 06:25 06:25 WBC 18.45 H RBC 5.91 H Hgb 14.7 Hct 45.7 MCV 77.3 L MCH 24.9 L MCHC 32.2 RDW 16.7 H Plt Count 626 H MPV 9.4 Immature Gran % 0.3 Neutrophils % 84.7 Lymphocytes % 8.2 Monocytes % 6.2 Eosinophils % 0.4 Basophils % 0.2 Absolute Neutrophils 15.63 H Absolute Lymphocytes 1.51 Absolute Monocytes 1.14 H Absolute Eosinophils 0.07 Absolute Basophils 0.04 PT INR APTT D-Dimer VBG pH VBG pCO2 VBG pO2 VBG HCO3 VBG Total CO2 VBG O2 Saturation VBG Base Excess Sodium 139 Potassium 3.3 L Chloride 95 L Carbon Dioxide 36.2 H Anion Gap 7.8 BUN 18 Creatinine 0.87 Estimated GFR/1.73 m2 >= 60.00 Glucose 173 H Lactate 2.2 H* Calcium 10.4 H Magnesium 2.1 Ferritin Total Bilirubin 0.4 Conjugated Bilirubin 0.12 AST 14 L ALT 22 Alkaline Phosphatase 145 H Lactate Dehydrogenase Troponin I < 0.05 C-Reactive Protein NT-Pro-B Natriuret Pep 99 Total Protein 9.7 H Albumin 3.3 L Lipase 09/19/19 09/19/19 09/19/19 06:25 06:25 06:25 WBC RBC Hgb Hct MCV MCH MCHC RDW Plt Count MPV Immature Gran % Neutrophils % Lymphocytes % Monocytes % Eosinophils % Basophils % Absolute Neutrophils Absolute Lymphocytes Absolute Monocytes Absolute Eosinophils Absolute Basophils PT 11.5 H INR 1.1 APTT 26.7 D-Dimer VBG pH 7.47 H VBG pCO2 54 H VBG pO2 18 L VBG HCO3 40 H VBG Total CO2 35 H VBG O2 Saturation 29 L VBG Base Excess > 15.0 H Sodium Potassium Chloride Carbon Dioxide Anion Gap BUN Creatinine Estimated GFR/1.73 m2 Glucose Lactate Calcium Magnesium Ferritin Total Bilirubin Conjugated Bilirubin AST ALT Alkaline Phosphatase Lactate Dehydrogenase Troponin I C-Reactive Protein NT-Pro-B Natriuret Pep Total Protein Albumin Lipase 108 09/19/19 09/19/19 06:25 06:25 WBC RBC Hgb Hct MCV MCH MCHC RDW Plt Count MPV Immature Gran % Neutrophils % Lymphocytes % Monocytes % Eosinophils % Basophils % Absolute Neutrophils Absolute Lymphocytes Absolute Monocytes Absolute Eosinophils Absolute Basophils PT INR APTT D-Dimer 1817 H VBG pH VBG pCO2 VBG pO2 VBG HCO3 VBG Total CO2 VBG O2 Saturation VBG Base Excess Sodium Potassium Chloride Carbon Dioxide Anion Gap BUN Creatinine Estimated GFR/1.73 m2 Glucose Lactate Calcium Magnesium Ferritin 231 Total Bilirubin Conjugated Bilirubin AST ALT Alkaline Phosphatase Lactate Dehydrogenase 273 H Troponin I C-Reactive Protein 8.17 H NT-Pro-B Natriuret Pep Total Protein Albumin Lipase HPI <Vincenzo Troy MD - Last Filed: 09/19/19 07:46> General Mode of arrival: EMS . Date/Time Provider Initiated Documentation: 09/19/19 06:18 . Limitations to Documentation: no limitations . Information obtained by: patient . History of Present Illness 64 year old F presents to the emergency department with the chief complaint of shortness of breath, described as moderate, Patient started experiencing this day(s) (2) and it has been constant. No relieving factors improve symptom(s), No exacerbating factors reported . Patient notes nausea/vomiting. Patient did receive the following treatments prior to arrival, none Related Data Home Medications Medication Instructions Recorded Confirmed polyethylene glycol 3350 [Miralax] 17 g PO DAILY PRN packet 07/30/13 09/19/19 triamcinolone acetonide 1 lorraine TOPICAL TID PRN #30 gm 09/07/17 09/19/19 ibuprofen 400 mg PO q8h PRN PAIN #200 tab-cap 12/21/17 09/19/19 compressor, for nebulizer #1 each 09/28/18 09/19/19 methadone 10 mg/mL oral concentrate 75 mg PO DAILY ml 09/28/18 09/19/19 magnesium chloride [Mag 64] 128 mg PO BID #120 tab 10/04/18 09/19/19 cholecalciferol (vitamin D3) 50 2,000 unit PO DAILY 01/24/19 09/19/19 mcg (2,000 unit) capsule ipratropium 0.5 mg-albuterol 3 mg 3 ml UPD Q6H PRN PRN #90 ml 01/24/19 09/19/19 (2.5 mg base)/3 mL nebulization soln lisinopril 10 mg tablet 10 mg PO DAILY #90 tab-cap 03/22/19 09/19/19 spironolactone 25 mg tablet 50 mg PO BID #60 tab 03/28/19 09/19/19 aspirin 81 mg PO DAILY #30 tab 05/24/19 09/19/19 gabapentin 300 mg capsule 300 mg PO TID #90 cap 06/12/19 09/19/19 albuterol sulfate 90 mcg/actuation 1 - 2 puff INHALATION Q6H PRN PRN 07/06/19 09/19/19 aerosol inhaler #3 inhaler fluticasone furoate 200 1 inh IH DAILY #60 each 07/06/19 09/19/19 mcg-vilanterol 25 mcg/dose inhalation powder hydroxyzine pamoate 50 mg capsule 50 mg PO BID PRN #60 cap 07/26/19 09/19/19 mirtazapine 30 mg tablet 30 mg PO HS #30 tab-cap 07/26/19 09/19/19 bupropion HCl 300 mg 24 hr tablet, 300 mg PO DAILY #90 tab 08/16/19 09/19/19 extended release food supplemt, lactose-reduced See Rx Instructions PO BID #237 ml 08/19/19 09/19/19 0.04 gram-1.05 kcal/mL oral liquid cefdinir 300 mg PO Q12H 10 Days #20 cap 09/19/19 furosemide 20 mg PO BID 09/19/19 09/19/19 prednisone 40 mg PO DAILY 5 Days #10 tab 09/19/19 Previous Rx's Medication Instructions Recorded ibuprofen 400 mg PO q8h PRN PAIN #200 tab-cap 12/21/17 compressor, for nebulizer #1 each 09/28/18 magnesium chloride [Mag 64] 128 mg PO BID #120 tab 10/04/18 ipratropium 0.5 mg-albuterol 3 mg 3 ml UPD Q6H PRN PRN #90 ml 01/24/19 (2.5 mg base)/3 mL nebulization soln lisinopril 10 mg tablet 10 mg PO DAILY #90 tab-cap 03/22/19 spironolactone 25 mg tablet 50 mg PO BID #60 tab 03/28/19 aspirin 81 mg PO DAILY #30 tab 05/24/19 gabapentin 300 mg capsule 300 mg PO TID #90 cap 06/12/19 albuterol sulfate 90 mcg/actuation 1 - 2 puff INHALATION Q6H PRN PRN 07/06/19 aerosol inhaler #3 inhaler fluticasone furoate 200 1 inh IH DAILY #60 each 07/06/19 mcg-vilanterol 25 mcg/dose inhalation powder hydroxyzine pamoate 50 mg capsule 50 mg PO BID PRN #60 cap 07/26/19 mirtazapine 30 mg tablet 30 mg PO HS #30 tab-cap 07/26/19 bupropion HCl 300 mg 24 hr tablet, 300 mg PO DAILY #90 tab 08/16/19 extended release food supplemt, lactose-reduced See Rx Instructions PO BID #237 ml 08/19/19 0.04 gram-1.05 kcal/mL oral liquid cefdinir 300 mg PO Q12H 10 Days #20 cap 09/19/19 prednisone 40 mg PO DAILY 5 Days #10 tab 09/19/19 Allergies Allergy/AdvReac Type Severity Reaction Status Date / Time gabapentin AdvReac Severe Nausea Verified 09/19/19 06:28 metaxalone [Metaxalone] AdvReac Severe nausea Verified 09/19/19 06:28 diclofenac [Diclofenac] AdvReac Intermediate contraindicated Verified 09/19/19 06:28 w/ pt's liver promethazine AdvReac Mild disoriented Verified 09/19/19 06:28 prochlorperazine AdvReac Unknown disoriented Verified 09/19/19 06:28 General JANNIE: 2 Review of Systems <Vincenzo Troy MD - Last Filed: 09/19/19 07:46> All systems reviewed & are unremarkable except as noted in HPI and below Constitutional Constitutional: Denies chills and Denies fever(s) Cardiovascular Cardiovascular: Denies chest pain Gastrointestinal Gastrointestinal: Denies abdominal pain Musculoskeletal Musculoskeletal: Denies joint swelling PFSH <Vincenzo Troy MD - Last Filed: 09/19/19 07:46> Social History Smoking/Tobacco Use Status: Current every day Tobacco Type: cigarettes Smoking packs per day: 1 Smoking cigarettes per day: 20.0 Years smoked: 40 Smoking pack- years: 40.00 Quit status: considering quitting Counseling given: other Details: pt feels motivated and states she doesnt enjoy them now Alcohol Intake: never Drug use: Current Sobriety Substance use type: heroin Details: on [facility] Adopted: No Household members: none Housing: house Communication Needs: None Pets and animals: Yes Pets and animals: cat(s) What is your relationship status?: Panel score (0-1 are the most socially isolated patients): 0 What type of physical activity do you participate in: none Seatbelt use: always 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 school: No Working smoke detector in home: Yes Fire extinguisher in home: Yes Carbon monox detector in home: Yes Do you feel safe at home: Yes Do you feel safe in your relationship?: Yes Exam <Vincenzo Troy MD - Last Filed: 09/19/19 07:46> Const General: no acute distress Orientation: alert [facility] Head: normal to inspection Ears: external ears normal General nose exam: external nose normal Mouth: moist mucous membranes Eyes General: appearance normal, both eyes and all related structures Neck Neck: normal visual inspection Resp Effort & Inspection: normal respiratory effort, able to speak in complete sentences, no tracheal deviation and no tripod positioning Cardio Rate: tachycardic Skin General skin exam: no rashes or lesions noted Neuro General: patient alert and patient oriented x3 Extrem General: normal to inspection Psych Mental Status: mental status grossly normal Sign Out <Vincenzo Troy MD - Last Filed: 09/19/19 07:46> Sign Out Data: Sign Out Comment: follow up on imaging results and response to steroids and zofran Last updated by Vincenzo Troy MD at 09/19/19 07:34
--- NOTE | 2019-09-19 06:15 | DI.CT_ITS ---
EXAM: CT CHEST PE ABD PELVIS W CLINICAL HISTORY: shortness of breath and n/v TECHNIQUE: Axial CT angiography was performed with multi-slice acquisition and multi-planar and/or 3D reconstruc tions. COMPARISON: ABD PELVIS WITH CONTRAST from 09/05/2014 ABD PELVIS WITH CONTRAST from 09/05/2014 CHEST - LUNG CANCER SCREENING from 03/18/2017 XR CHEST 2V PA LATERAL from 10/31/2018 XR CHEST 2V PA LATERAL from 05/21/2019 FINDINGS: CT angiography of the chest was performed with the injection of 80 cc of Omnipaque 350, scanning of t he abdomen and pelvis was also obtained. No evidence of pulmonary embolic disease. No significant thoracic aortic abnormality. No mediastina l or hilar adenopathy. No pleural effusion seen. There are diffuse emphysematous changes. There is diffuse septal prominence and peripheral reticular radiodensities, minimal honeycombing may be present posteriorly in the right upper lobe. There are multiple focal areas of increased radiodensity which are predominantly peripheral and which could rep resent small focal areas of atelectasis, consolidation, or scarring. Scattered ground-glass and vagu staci reticulo nodular opacities are also seen. Patient had markedly abnormal chest films in October and May 2019. These showed scattered and diffus e predominantly reticulo nodular pulmonary opacities with probable multiple superimposed areas of con solidation in May 2019. The findings on today's examination would be consistent with chronic predominantly fibrotic radiodens ities with multiple focal areas of superimposed abnormality which may be chronic and/or acute. I am u ncertain what the baseline appearance of the lungs is in this patient and, following treatment, I wou ld recommend a follow-up chest CT in 1-3 months. Findings were discussed with Dr. Bhavana Odonnell in the ED.
[2019-09-19 06:46] LABS: HCO3 (Venous) 40 mmol/L (22-28); O2 Sat (Venous) 29 % (70-80); TCO2 (Venous) 35 mmol/L (22-29); pCO2 (Venous) 54 mm/Hg (34-47); pH (Venous) 7.47 (7.35-7.45); pO2 (Venous) 18 mm/Hg (28-44)
[2019-09-19 06:47] LABS: Abs Immature Grans 0.06 k/cumm (0.0-0.09); Absolute Basophil Count 0.04 k/cumm (0.0-0.2); Absolute Eosinophil Count 0.07 k/cumm (0.0-0.7); Absolute Lymphocyte Count 1.51 k/cumm (1.2-3.4); Absolute Monocyte Count 1.14 k/cumm (0.11-0.7); Absolute Neutrophil Count 15.63 k/cumm (1.2-6.7); BE (Venous) > 15.0 mmol/L (-3-3); Basophils % 0.2; Eosinophils % 0.4; HCT 45.7 % (36.0-46.0); HGB 14.7 g/dL (12.0-15.5); Immature Grans % 0.3 %; Lymphocytes % 8.2; Mean Corp. HGB Concentration 32.2 g/dL (32.0-36.0); Mean Corpuscular Hemoglobin 24.9 pg (27.0-33.0); Mean Corpuscular Volume 77.3 fL (80-95); Mean Platelet Volume 9.4 fL (8.0-11.0); Monocytes % 6.2; Neutrophils % 84.7; Platelet Count 626 x1000/uL (130-400); RBC 5.91 m/cumm (4.00-5.20); RBC Distribution Width 16.7 % (11.7-14.6); White Blood Cell Count 18.45 k/cumm (4.4-10.8)
[2019-09-19 06:48] LABS: Lactate 2.2 mmol/L (0.6-1.4)
[2019-09-19] MEDS: Ondansetron 4 MG/2 ML VIAL IVP ×2 (06:50→08:18)
[2019-09-19] MEDS: methylPREDNISolone SUCC 125 MG VIAL IVP (06:52)
[2019-09-19 07:01] LABS: Lipase 108 U/L (73-393)
[2019-09-19 07:07] LABS: INR 1.1 (0.9-1.1); PTT Activated 26.7 sec (21.0-31.4); Prothrombin Time 11.5 sec (9.3-11.0)
[2019-09-19 07:09] LABS: C-Reactive Protein 8.17 mg/dL (0.0-0.3); LDH 273 U/L (81-234)
[2019-09-19 07:14] LABS: ALT 22 U/L (14-59); AST 14 U/L (15-37); Albumin 3.3 g/dL (3.4-5.0); Alkaline Phosphatase 145 U/L (46-116); Anion Gap 7.8 mmol/L (3-11); BUN 18 mg/dL (7-18); Bilirubin, Direct 0.12 mg/dL (0.00-0.20); Bilirubin, Total 0.4 mg/dL (0.2-1.0); CO2 36.2 mmol/L (21.0-32.0); CREATININE 0.87 mg/dL (0.55-1.02); Calcium 10.4 mg/dL (8.5-10.1); Chloride 95 mmol/L (98-107); Glucose 173 mg/dL (74-106); Magnesium 2.1 mg/dL (1.8-2.4); NT-proBNP 99 pg/mL (<300); Potassium 3.3 mmol/L (3.5-5.1); Sodium 139 mmol/L (136-145); Total Protein 9.7 g/dL (6.4-8.2); Troponin I < 0.05 ng/Ml (<0.06)
[2019-09-19 07:20] LABS: D-Dimer 1817 ng/mlFEU (<500)
[2019-09-19 07:36] LABS: Ferritin 231 ng/mL (8-252)
[2019-09-19 07:55] LABS: Procalcitonin < 0.1 ng/mL
--- NOTE | 2019-09-19 08:17 | DI.VRAD_ITS ---
PROCEDURE INFORMATION: Exam: CT Angiography Chest With Contrast Exam date and time: 09/19/2019 7:47 AM Age: 64 years old Clinical indication: Shortness of breath; Patient HX: SOB, n/v, elevated ddimer TECHNIQUE: Imaging protocol: Computed tomographic angiography of the chest with intravenous contrast. 3D rendering: MIP and/or 3D reconstructed images were created by the technologist. COMPARISON: CT CHEST - LUNG CANCER SCREENING 03/18/2017 1:19 PM FINDINGS: Pulmonary arteries: There is no evidence for PE. Aorta: Unremarkable. No aortic aneurysm. No aortic dissection. Lungs: Centrilobular emphysema is present. Pulmonary parenchymal abnormalities include scattered ground-glass attenuation with septal thickening which may reflect interstitial edema. . Nodular opacities compatible with nonspecific small airways disease. . Pleural space: Unremarkable. No pneumothorax. No pleural effusion. Heart: Unremarkable. No cardiomegaly. No pericardial effusion. Lymph nodes: Small nonspecific mediastinal lymph nodes are present. Bones/joints: Old rib fracture deformities noted Soft tissues: Unremarkable. IMPRESSION: 1. Pulmonary parenchymal abnormalities include scattered ground-glass attenuation with septal thickening which may reflect interstitial edema. . 2. Nodular opacities compatible with nonspecific small airways disease. . PROCEDURE INFORMATION: Exam: CT Abdomen And Pelvis With Contrast Exam date and time: 09/19/2019 7:47 AM Age: 64 years old Clinical indication: Shortness of breath; Patient HX: SOB, n/v, elevated ddimer TECHNIQUE: Imaging protocol: Computed tomography of the abdomen and pelvis with intravenous contrast. 3D rendering: MIP and/or 3D reconstructed images were created by the technologist. COMPARISON: CT CHEST - LUNG CANCER SCREENING 03/18/2017 1:19 PM FINDINGS: Liver: Normal. No mass. Gallbladder and bile ducts: The gallbladder is contracted but otherwise normal in appearance. Pancreas: Normal. No ductal dilation. Spleen: Normal. No splenomegaly. Adrenals: Normal. No mass. Kidneys and ureters: Normal. No hydronephrosis. Stomach and bowel: Unremarkable. No obstruction. No mucosal thickening. Appendix: No evidence of appendicitis. Intraperitoneal space: Unremarkable. No free air. No significant fluid collection. Vasculature: Prominent atherosclerotic calcifications of the abdominal aorta are noted. Lymph nodes: Unremarkable. No enlarged lymph nodes. Bladder: Unremarkable as visualized. Reproductive: The patient is status post hysterectomy. Bones/joints: Unremarkable. No acute fracture. Soft tissues: Unremarkable. IMPRESSION: No acute findings Dictated and Authenticated by: Carlos A Tobias MD. Ordering:AMIRA Loya MD
[2019-09-19] MEDS: cefTRIAXone 1 GM/50 ML BAG IVPB (09:15)
[2019-09-19] MEDS: Normal Saline Flush 10 ML SYR IVP (09:44)
[2019-09-19 10:47] LABS: Troponin I < 0.05 ng/Ml (<0.06)
== END 2019-09-19 11:22 | disposition home or self-care (01) ==
PROVIDERS: Emergency Medicine; Emergency Provider Emergency Medicine; PCP Student in an Organized Health Care Education/Training Program
DX: J44.1 Chronic obstructive pulmonary disease with (acute) exacerbation (principal); I10 Essential (primary) hypertension; Z79.891 Long term (current) use of opiate analgesic; F17.210 Nicotine dependence, cigarettes, uncomplicated
CPT/HCPCS: 36415; 71275; 74177; 80053; 82805; 83690; 84145; 93005; 96365; 96375; 96376; 99285; U0003; 82248; 82728; 83605; 83615; 83735; 83880; 84484; 85025; 85379; 85610; 85730; 86140; 93010; 99284; J0696; J2405; J2930

== ENCOUNTER 2019-09-19 10:21 | Outpatient (CLI) | payer MEDICARE, MEDICAID, SELFPAY ==
[2019-09-22 21:01] LABS: SARS-CoV-2 RNA Undetected (Undetected); SARS-CoV-2 Specimen Source Nasopharynx
== END 2019-09-19 10:41 ==
PROVIDERS: PCP Student in an Organized Health Care Education/Training Program; Visit Provider Emergency Medicine
DX: Z11.59 Encounter for screening for other viral diseases (principal)
CPT/HCPCS: U0003

== ENCOUNTER 2019-09-19 15:48 | Inpatient (IN) | payer MEDICARE, MEDICAID, SELFPAY ==
[2019-09-19] VITALS (22 sets, daily range): BP systolic 128–153; BP diastolic 78–102; PULSE 85–109; RESP 18; TEMP 36.3–36.7; O2SAT 95–98
--- NOTE | 2019-09-19 15:41 | ED.GENADUL_ITS ---
Discharge Plan Disposition Patient Disposition: [facility] INPATIENT Condition: Poor Discharge Details Chief Complaint: SOB Clinical Impression: COPD (chronic obstructive pulmonary disease), Bilateral pneumonia, Shortness of breath Admit Date/Time: 09/19/19 16:00 Admit Provider: River Sauer Attending Provider: River Sauer Primary Care Provider: Kirsten Friedman ED Provider: Geovanna Mary Discharge Data Discharge Date/Time-TO BE ENTERED AT DEPARTURE: 09/19/19 19:45 Medical Decision Making Patient is a pleasant 64 year old male presenting today, brought in via EMS with c/c of SOB. Patient was seen here this AM and chose to leave after admission was advised by Dr. Odonnell. Please see the note from this morning regarding initial presentation. Thorough workup was obtained at that time including labs and chest CT. She had outpatient COVID testing completed after she was discharged. PMH includes COPD, patient is an continues to smoke, cirrhosis of the liver secondary to Hepatitis C, hypertension, methadone dependence. On exam, she appears chronically unwell with poor skin color. She appears mildly SOB but in no respiratory distress. Patient is not currently requiring O2. She was on oxygen when brought in via EMS as she was slightly hypoxic on their arrival. Please see earlier note regarding imaging and laboratory evaluation. Patient endorses nausea, will give IV zofran. Consulted with hospitalist. Patient has had full work up this morning, no changes since leaving the department. She received 1g Ceftriaxone and 125mg of Solu-medrol. The physician this AM had already spoken to hospitalist regarding admission with concern for COVID. Dr. Sauer agrees to admission. I will place holding orders. No improvement with zofran. Patient has multiple allergies, will give IV benadryl. Patient still endorsing nausea. She reports that phenergan is typically the only medication that works for her. This is on her allergy list but she denies having allergy, has had this multiple times historically. Patient evaluated by hospitalist. She will be transferred to [facility] General Mode of arrival: EMS . Date/Time Provider Initiated Documentation: 09/19/19 15:55 . Limitations to Documentation: no limitations . Information obtained by: patient, EMS and RN notes reviewed . History of Present Illness 64 year old F presents to the emergency department with the chief complaint of SOB, described as severe and similar to prior episodes (patient seen this morning, advised admission which patient refused), and is localized to the chest. Patient started experiencing this day(s) (3) and it has been constant. No relieving factors improve symptom(s), Movement worsens symptoms . Patient notes cough, malaise, nausea/vomiting (vomited x 1 since leaving this AM) and shortness of breath; denies chest pain and rash. Patient did receive the following treatments prior to arrival, other (ondansetron odt with EMS) Related Data Home Medications Medication Instructions Recorded Confirmed polyethylene glycol 3350 [Miralax] 17 g PO DAILY PRN packet 07/30/13 09/19/19 triamcinolone acetonide 1 lorraine TOPICAL TID PRN #30 gm 09/07/17 09/19/19 ibuprofen 400 mg PO q8h PRN PAIN #200 tab-cap 12/21/17 09/19/19 compressor, for nebulizer #1 each 09/28/18 09/19/19 methadone 10 mg/mL oral concentrate 75 mg PO DAILY ml 09/28/18 09/19/19 magnesium chloride [Mag 64] 128 mg PO BID #120 tab 10/04/18 09/19/19 cholecalciferol (vitamin D3) 50 2,000 unit PO DAILY 01/24/19 09/19/19 mcg (2,000 unit) capsule ipratropium 0.5 mg-albuterol 3 mg 3 ml UPD Q6H PRN PRN #90 ml 01/24/19 09/19/19 (2.5 mg base)/3 mL nebulization soln lisinopril 10 mg tablet 10 mg PO DAILY #90 tab-cap 03/22/19 09/19/19 spironolactone 25 mg tablet 50 mg PO BID #60 tab 03/28/19 09/19/19 aspirin 81 mg PO DAILY #30 tab 05/24/19 09/19/19 gabapentin 300 mg capsule 300 mg PO TID #90 cap 06/12/19 09/19/19 albuterol sulfate 90 mcg/actuation 1 - 2 puff INHALATION Q6H PRN PRN 07/06/19 09/19/19 aerosol inhaler #3 inhaler fluticasone furoate 200 1 inh IH DAILY #60 each 07/06/19 09/19/19 mcg-vilanterol 25 mcg/dose inhalation powder hydroxyzine pamoate 50 mg capsule 50 mg PO BID PRN #60 cap 07/26/19 09/19/19 mirtazapine 30 mg tablet 30 mg PO HS #30 tab-cap 07/26/19 09/19/19 bupropion HCl 300 mg 24 hr tablet, 300 mg PO DAILY #90 tab 08/16/19 09/19/19 extended release food supplemt, lactose-reduced See Rx Instructions PO BID #237 ml 08/19/19 09/19/19 0.04 gram-1.05 kcal/mL oral liquid cefdinir 300 mg PO Q12H 10 Days #20 cap 09/19/19 09/19/19 furosemide 20 mg PO BID 09/19/19 09/19/19 prednisone 40 mg PO DAILY 5 Days #10 tab 09/19/19 09/19/19 Previous Rx's Medication Instructions Recorded ibuprofen 400 mg PO q8h PRN PAIN #200 tab-cap 12/21/17 compressor, for nebulizer #1 each 09/28/18 magnesium chloride [Mag 64] 128 mg PO BID #120 tab 10/04/18 ipratropium 0.5 mg-albuterol 3 mg 3 ml UPD Q6H PRN PRN #90 ml 01/24/19 (2.5 mg base)/3 mL nebulization soln lisinopril 10 mg tablet 10 mg PO DAILY #90 tab-cap 03/22/19 spironolactone 25 mg tablet 50 mg PO BID #60 tab 03/28/19 aspirin 81 mg PO DAILY #30 tab 05/24/19 gabapentin 300 mg capsule 300 mg PO TID #90 cap 06/12/19 albuterol sulfate 90 mcg/actuation 1 - 2 puff INHALATION Q6H PRN PRN 07/06/19 aerosol inhaler #3 inhaler fluticasone furoate 200 1 inh IH DAILY #60 each 07/06/19 mcg-vilanterol 25 mcg/dose inhalation powder hydroxyzine pamoate 50 mg capsule 50 mg PO BID PRN #60 cap 07/26/19 mirtazapine 30 mg tablet 30 mg PO HS #30 tab-cap 07/26/19 bupropion HCl 300 mg 24 hr tablet, 300 mg PO DAILY #90 tab 08/16/19 extended release food supplemt, lactose-reduced See Rx Instructions PO BID #237 ml 08/19/19 0.04 gram-1.05 kcal/mL oral liquid cefdinir 300 mg PO Q12H 10 Days #20 cap 09/19/19 prednisone 40 mg PO DAILY 5 Days #10 tab 09/19/19 Allergies Allergy/AdvReac Type Severity Reaction Status Date / Time gabapentin AdvReac Severe Nausea Verified 09/19/19 15:50 metaxalone [Metaxalone] AdvReac Severe nausea Verified 09/19/19 15:50 diclofenac [Diclofenac] AdvReac Intermediate contraindicated Verified 09/19/19 15:50 w/ pt's liver promethazine AdvReac Mild disoriented Verified 09/19/19 15:50 prochlorperazine AdvReac Unknown disoriented Verified 09/19/19 15:50 General JANNIE: 2 Review of Systems Constitutional Constitutional: Reports as per HPI, Denies chills, Denies fever(s), Denies headache(s), Denies lethargy and Denies poor appetite Eyes Eyes: Denies change in vision ENT Ears, Nose, Mouth, and Throat: Denies dizziness and Denies headache(s) Cardiovascular Cardiovascular: Reports as per HPI, Denies chest pain, Denies chest pain at rest, Denies chest pain with activity, Denies radiating jaw, neck or arm pain, Reports dyspnea and Reports dyspnea on exertion Respiratory Respiratory: Reports as per HPI, Reports chest congestion, Reports cough (states cough is dry, ocassional white sputum), Denies pain on inspiration, Denies pain with cough, Reports dyspnea, Reports dyspnea on exertion and Denies wheezing Gastrointestinal Gastrointestinal: Reports as per HPI, Denies abdominal pain, Denies diarrhea, Denies nausea and Denies vomiting Musculoskeletal Musculoskeletal: Reports as per HPI and Denies back pain Integumentary/Breasts Skin/Breast: Reports as per HPI and Denies rash Neurologic Neurologic: Reports as per HPI, Denies dizziness and Denies headache(s) Allergic/Immunologic Allergic/Immunologic: Denies wheezing [facility] Medical History Abnormal CT of the chest (Acute 03/18/17) stable 2mm nodule in AILY[place] Annual Chest CT for lung cancer screening recommended Acute renal failure (Resolved 04/29/14) a. creatinine bumped from 0.8 to 2.9 b. h/o renal failure 06/2013, presented with creatinine 5.4, which normalized with IV fluids Acute right-sided low back pain without sciatica (Acute 06/08/17) Pain rad thru buttock, but not down leg. Priformis Syndr? [ ] PT [ ] Hx Pain Clinic (Injctn #1 helped, #2 did not). Occasional relief from SOMA. Trial GABAPENTIN 06/09/18.in past Anxiety and depression (Chronic) Bilateral pneumonia (Acute 04/29/14) A. Bilateral lower lobes Cirrhosis Cirrhosis of liver (Chronic) a. History of Hep C treatment. b. Liver biopsy 2005 positive for cirrhosis. 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 AFP levels every six months and ruq US every 12 months COPD (chronic obstructive pulmonary disease) (Chronic) Ongoing tobacco use. COPD (chronic obstructive pulmonary disease) Diabetes (Chronic) On Metformin. Diabetes mellitus Essential hypertension (Chronic) Well maintained, meds tolerated. Hepatitis C HTN (hypertension) Hypertension (Chronic) Methadone dependence (Chronic) Neuropathy of right radial nerve (Chronic) a. recently had multiple falls and a hematoma around her humerus b. resolving Pleuritic chest pain (Acute 04/29/14) a. left sided Polysubstance abuse (Chronic) a. h/o opiate overdose 06/2013 and 11/2013 b. recently started in [facility] program 03/13/2014 on oral methadone (missed her dose today) Shortness of breath (Acute) Spinal stenosis (Chronic) a. MRI 10/2009, showed L4-5 narrowing Tobacco abuse (Chronic) Tobacco use disorder Surgical History Appendectomy (01/30/07) H/O: hysterectomy (Chronic) History of ankle surgery (Acute) left S/P bilateral breast lumpectomy (Acute) Social History Smoking/Tobacco Use Status: Current every day Tobacco Type: cigarettes Smoking packs per day: 1 Smoking cigarettes per day: 20.0 Years smoked: 40 Smoking pack- years: 40.00 Quit status: considering quitting Counseling given: other Details: pt feels motivated and states she doesnt enjoy them now Alcohol Intake: never Drug use: Current Sobriety Substance use type: heroin Details: on [facility] Adopted: No Household members: none Housing: house Communication Needs: None Pets and animals: Yes Pets and animals: cat(s) What is your relationship status?: Panel score (0-1 are the most socially isolated patients): 0 What type of physical activity do you participate in: none Seatbelt use: always 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 Working smoke detector in home: Yes Fire extinguisher in home: Yes Carbon monox detector in home: Yes Do you feel safe at home: Yes Do you feel safe in your relationship?: Yes Exam Const General: cooperative, not healthy appearing, comfortable, no acute distress, well developed, well groomed and ill appearing acutely and chronically Nutritional Appearance: cachectic Orientation: alert, awake and oriented x3 HENMT Head: normal to inspection Ears: hearing grossly normal bilaterally Eyes General: appearance normal, both eyes and all related structures Resp Effort & Inspection: normal respiratory effort, not able to speak in complete sentences (patient appears mildly short of breath), no audible wheezes, no cough (no cough witnessed during time of interaction), no respiratory distress, no retractions and no tripod positioning Skin General skin exam: no rashes or lesions noted Neuro General: patient alert, patient awake and patient oriented x3 Cognition: normal cognition Speech: speech normal Psych Appearance: grossly normal and well kempt Mental Status: mental status grossly normal Speech and Movement: speech and movement normal
--- NOTE | 2019-09-19 16:28 | W.PM.HP.N ---
Date of service: 09/19/19 Time of Service: 16:28 Assessment and Plan Assessment and plan (1) Acute respiratory failure with hypoxia: Status: Acute Assessment and plan: Multifactorial with evidence of bilateral pneumonia on x-ray with a history of COPD there was question of COPD exacerbation on earlier visit she did receive 125 mg of IV Solu-Medrol. She also received 1 g of IV ceftriaxone and was discharged on cefdinir which she had not started yet. Will admit to respiratory unit and continue daily IV ceftriaxone will add azithromycin 500 mg today followed by 250 mg daily for 4 days we will hold off on IV fluids we will hold off on further steroids at this time. Covid 19 testing is pending. Will schedule Combivent MDI and albuterol MDI for breakthrough shortness of breath. Oxygen to maintain sats in the mid to low 90s. Aggressive pulmonary toilet encourage out of bed and self proning as able History of Present Illness History of Present Illness Chief Complaint: shortness of breath Narrative: this is a 64 year old female with history of COPD, ongoing tobacco abuse, hep C, methadone use, who returns to the emergency department with the chief complaint of SOB, described as severe and similar to earlier episode in which she was advised admission but refused). Her work up earlier showed bilateral pneumonia with a normal procalcitonin, elevated white count, d-dimer and CRP. She was tested for COVID-19 which is still pending at this time, sample went to [facility] with 3 day expected turn around. She was given solumendrol 125 mg IVP and ceftriaxone 1 gm IV and sent home on cefdinir and prednisone burst. Review of Systems All systems reviewed & are unremarkable except as noted in HPI and below Cardiovascular Cardiovascular: Reports chest pain (constant past 3 days) and Reports dyspnea Respiratory Respiratory: Reports cough and Reports dyspnea Gastrointestinal Gastrointestinal: Denies nausea and Denies vomiting [facility] Medical History Abnormal CT of the chest (Acute 03/18/17) stable 2mm nodule in AILY[place] Annual Chest CT for lung cancer screening recommended Acute renal failure (Resolved 04/29/14) a. creatinine bumped from 0.8 to 2.9 b. h/o renal failure 06/2013, presented with creatinine 5.4, which normalized with IV fluids Acute right-sided low back pain without sciatica (Acute 06/08/17) Pain rad thru buttock, but not down leg. Priformis Syndr? [ ] PT [ ] Hx Pain Clinic (Injctn #1 helped, #2 did not). Occasional relief from SOMA. Trial GABAPENTIN 06/09/18.in past Anxiety and depression (Chronic) Bilateral pneumonia (Acute 04/29/14) A. Bilateral lower lobes Cirrhosis Cirrhosis of liver (Chronic) a. History of Hep C treatment. b. Liver biopsy 2005 positive for cirrhosis. 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 AFP levels every six months and ruq US every 12 months COPD (chronic obstructive pulmonary disease) (Chronic) Ongoing tobacco use. COPD (chronic obstructive pulmonary disease) Diabetes (Chronic) On Metformin. Diabetes mellitus Essential hypertension (Chronic) Well maintained, meds tolerated. Hepatitis C HTN (hypertension) Hypertension (Chronic) Methadone dependence (Chronic) Neuropathy of right radial nerve (Chronic) a. recently had multiple falls and a hematoma around her humerus b. resolving Pleuritic chest pain (Acute 04/29/14) a. left sided Polysubstance abuse (Chronic) a. h/o opiate overdose 06/2013 and 11/2013 b. recently started in [facility] program 03/13/2014 on oral methadone (missed her dose today) Shortness of breath (Acute) Spinal stenosis (Chronic) a. MRI 10/2009, showed L4-5 narrowing Tobacco abuse (Chronic) Tobacco use disorder Surgical History Appendectomy (01/30/07) H/O: hysterectomy (Chronic) History of ankle surgery (Acute) left S/P bilateral breast lumpectomy (Acute) Social History Smoking/Tobacco Use Status: Current every day Tobacco Type: cigarettes Smoking packs per day: 1 Smoking cigarettes per day: 20.0 Years smoked: 40 Smoking pack-years: 40.00 Quit status: considering quitting Counseling given: other Details: pt feels motivated and states she doesnt enjoy them now Alcohol Intake: never Drug use: Current Sobriety Substance use type: heroin Details: on [facility] Adopted: No Household members: none Housing: house Communication Needs: None Pets and animals: Yes Pets and animals: cat(s) What is your relationship status?: Panel score (0-1 are the most socially isolated patients): 0 What type of physical activity do you participate in: none Seatbelt use: always 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 Working smoke detector in home: Yes Fire extinguisher in home: Yes Carbon monox detector in home: Yes Do you feel safe at home: Yes Do you feel safe in your relationship?: Yes Meds Home Medications and Allergies Home Medications Medication Instructions Recorded Confirmed Type polyethylene glycol 3350 [Miralax] 17 g PO DAILY PRN packet 07/30/13 09/19/19 History triamcinolone acetonide 1 lorraine TOPICAL TID PRN #30 gm 09/07/17 09/19/19 History ibuprofen 400 mg PO q8h PRN PAIN #200 tab-cap 12/21/17 09/19/19 Rx compressor, for nebulizer #1 each 09/28/18 09/19/19 Rx methadone 10 mg/mL oral concentrate 75 mg PO DAILY ml 09/28/18 09/19/19 History magnesium chloride [Mag 64] 128 mg PO BID #120 tab 10/04/18 09/19/19 Rx cholecalciferol (vitamin D3) 50 2,000 unit PO DAILY 01/24/19 09/19/19 History mcg (2,000 unit) capsule ipratropium 0.5 mg-albuterol 3 mg 3 ml UPD Q6H PRN PRN #90 ml 01/24/19 09/19/19 Rx (2.5 mg base)/3 mL nebulization soln lisinopril 10 mg tablet 10 mg PO DAILY #90 tab-cap 03/22/19 09/19/19 Rx spironolactone 25 mg tablet 50 mg PO BID #60 tab 03/28/19 09/19/19 Rx aspirin 81 mg PO DAILY #30 tab 05/24/19 09/19/19 Rx gabapentin 300 mg capsule 300 mg PO TID #90 cap 06/12/19 09/19/19 Rx albuterol sulfate 90 mcg/actuation 1 - 2 puff INHALATION Q6H PRN PRN 07/06/19 09/19/19 Rx aerosol inhaler #3 inhaler fluticasone furoate 200 1 inh IH DAILY #60 each 01/24/20 04/08/20 Rx mcg-vilanterol 25 mcg/dose inhalation powder hydroxyzine pamoate 50 mg capsule 50 mg PO BID PRN #60 cap 07/26/19 09/19/19 Rx mirtazapine 30 mg tablet 30 mg PO HS #30 tab-cap 07/26/19 09/19/19 Rx bupropion HCl 300 mg 24 hr tablet, 300 mg PO DAILY #90 tab 08/16/19 09/19/19 Rx extended release food supplemt, lactose-reduced See Rx Instructions PO BID #237 ml 08/19/19 09/19/19 Rx 0.04 gram-1.05 kcal/mL oral liquid cefdinir 300 mg PO Q12H 10 Days #20 cap 09/19/19 09/19/19 Rx furosemide 20 mg PO BID 09/19/19 09/19/19 History prednisone 40 mg PO DAILY 5 Days #10 tab 09/19/19 09/19/19 Rx Allergies Allergy/AdvReac Type Severity Reaction Status Date / Time gabapentin AdvReac Severe Nausea Verified 09/19/19 15:50 metaxalone [Metaxalone] AdvReac Severe nausea Verified 09/19/19 15:50 diclofenac [Diclofenac] AdvReac Intermediate contraindicated Verified 09/19/19 15:50 w/ pt's liver promethazine AdvReac Mild disoriented Verified 09/19/19 15:50 prochlorperazine AdvReac Unknown disoriented Verified 09/19/19 15:50 Exam Const General: cooperative, no acute distress, frail appearing and ill appearing chronically Nutritional Appearance: underweight Orientation: alert, awake and oriented x3 HENMT Head: normal to inspection, normocephalic and atraumatic Mouth: oral mucosae normal (slightly dry, no exudates) Resp Effort & Inspection: normal respiratory effort, able to speak in complete sentences and no audible wheezes Cardio Rate: regular rate Rhythm: regular rhythm GI Inspection: normal to inspection Palpation: soft Skin General skin exam: no rashes or lesions noted Neuro General: patient alert, patient awake and patient oriented x3 Extrem General: normal to inspection, full ROM and no pedal edema Results CT chest/abd/pelvis with contrast FINDINGS: CT angiography of the chest was performed with the injection of 80 cc of Omnipaque 350, scanning of the abdomen and pelvis was also obtained. No evidence of pulmonary embolic disease. No significant thoracic aortic abnormality. No mediastinal or hilar adenopathy. No pleural effusion seen. There are diffuse emphysematous changes. There is diffuse septal prominence and peripheral reticular radiodensities, minimal honeycombing may be present posteriorly in the right upper lobe. There are multiple focal areas of increased radiodensity which are predominantly peripheral and which could represent small focal areas of atelectasis, consolidation, or scarring. Scattered ground-glass and vaguely reticulo nodular opacities are also seen. Patient had markedly abnormal chest films in October and May 2019. These showed scattered and diffuse predominantly reticulo nodular pulmonary opacities with probable multiple superimposed areas of consolidation in May 2019. The findings on today's examination would be consistent with chronic predominantly fibrotic radiodensities with multiple focal areas of superimposed abnormality which may be chronic and/or acute. I am uncertain what the baseline appearance of the lungs is in this patient and, following treatment, I would recommend a follow-up chest CT in 1-3 months. Troponin less than 0.05 procalcitonin less than 0.1 ferritin 231 d-dimer 1817 INR 1.1 PT 11.5 magnesium 2.1 proBNP 99 sodium 139 potassium 3.5 chloride 101 CO2 28 BUN 14 creatinine 0.8 glucose 153 calcium 8.6 LDH 273 C-reactive protein 8.17 white count 18.4 hemoglobin 14.7 hematocrit 45.7 platelet count 626 Labs Result diagrams: 09/20/19 06:45 09/20/19 06:45 Last Vital Signs Temp 36.7 C 09/19/19 15:45 Pulse 95 H 09/19/19 15:45 Resp 18 09/19/19 15:45 BP 149/81 H 09/19/19 15:45 Pulse Ox 96 09/19/19 15:45 COVID-19 Screening Traveled to [place] from one of the affected countries or regions?: NO Recent travel in the [place] within the last 8 weeks?: No Recent out of the country travel within the last 8 weeks?: No Exposure or possible exposure to illness during travel?: No Had IN PERSON contact w/suspected or confirmed C-19 person: No Have you had the following symptoms in the past few days?: No Symptoms noted since travel?: Lower Respiratory
[2019-09-19] MEDS: Ondansetron 4 MG/2 ML VIAL IVP (16:47)
[2019-09-19] MEDS: diphenhydrAMINE 50 MG/ML VIAL 25 MG IVP (17:11)
[2019-09-19] MEDS: AZITHROMYCIN 500 MG in Normal Saline 250 ML 250 MG IVPB (21:00)
[2019-09-19] MEDS: cefTRIAXone 1 GM/50 ML BAG IVPB (21:01)
[2019-09-19] MEDS: Furosemide 20 MG TAB (21:01)
[2019-09-19] MEDS: Gabapentin 300 MG CAP 600 MG PO (21:37)
[2019-09-20] MEDS: Acetaminophen 325 MG TAB 650 MG PO (00:08)
[2019-09-20 00:12] VITALS: BP 157/94; PULSE 90; RESP 21; TEMP 35.8; O2SAT 98
[2019-09-20] MEDS: Mirtazapine 15 MG TAB 30 MG PO ×2 (02:40→21:14)
[2019-09-20] MEDS: Normal Saline Flush 10 ML SYR IVP ×3 (02:40→14:28)
[2019-09-20] MEDS: Nicotine 21 MG/24 HR PATCH TD (04:03)
[2019-09-20 07:16] VITALS: BP 134/104; PULSE 113; RESP 14; TEMP 37.2; O2SAT 97
[2019-09-20 07:37] LABS: Abs Immature Grans 0.06 k/cumm (0.0-0.09); HCT 41.4 % (36.0-46.0); HGB 13.5 g/dL (12.0-15.5); Mean Corp. HGB Concentration 32.6 g/dL (32.0-36.0); Mean Corpuscular Volume 76.8 fL (80-95); Platelet Count 608 x1000/uL (130-400); RBC 5.39 m/cumm (4.00-5.20); RBC Distribution Width 16.4 % (11.7-14.6); White Blood Cell Count 20.36 k/cumm (4.4-10.8)
[2019-09-20 07:54] LABS: ALT 20 U/L (14-59); AST 20 U/L (15-37); Absolute Lymphocyte Count 2.44 k/cumm (1.2-3.4); Absolute Monocyte Count 1.83 k/cumm (0.11-0.7); Absolute Neutrophil Count 16.08 k/cumm (1.2-6.7); Alkaline Phosphatase 126 U/L (46-116); Anion Gap 10.3 mmol/L (3-11); BUN 22 mg/dL (7-18); Bilirubin, Total 0.4 mg/dL (0.2-1.0); CO2 32.7 mmol/L (21.0-32.0); CREATININE 0.76 mg/dL (0.55-1.02); Calcium 9.5 mg/dL (8.5-10.1); Chloride 96 mmol/L (98-107); Diff Comment Manual Differential; Glucose 111 mg/dL (74-106); Magnesium 2.1 mg/dL (1.8-2.4); Sodium 139 mmol/L (136-145); Total Protein 8.6 g/dL (6.4-8.2)
[2019-09-20] MEDS: Methadone Liquid 10 MG/ML 75 MG PO (07:55)
[2019-09-20 07:58] LABS: Potassium 2.9 mmol/L (3.5-5.1)
[2019-09-20] MEDS: buPROPion-XL 150 MG TABCR 300 MG PO (09:27)
[2019-09-20] MEDS: Furosemide 20 MG TAB PO ×2 (09:27→17:21)
[2019-09-20] MEDS: Spironolactone 50 MG TAB PO ×2 (09:27→17:19)
[2019-09-20] MEDS: Lisinopril 10 MG TAB PO (09:27)
[2019-09-20] MEDS: Gabapentin 300 MG CAP PO (09:27)
[2019-09-20 09:37] LABS: INR 1.2 (0.9-1.1); Prothrombin Time 12.2 sec (9.3-11.0)
[2019-09-20] MEDS: Azithromycin 250 MG TAB PO (10:17)
[2019-09-20] MEDS: POTASSIUM CHLORIDE 20 MEQ/100 ML BAG 50 MEQ IVPB ×2 (10:21→12:07)
[2019-09-20 10:55] VITALS: BP 123/83; PULSE 101; RESP 16; TEMP 37; O2SAT 95
[2019-09-20] MEDS: Normal Saline 500 ML 50 ML IV (10:55)
[2019-09-20] MEDS: Cholecalciferol (Vitamin D3) 1,000 UNIT TAB 2000 UNITS PO (11:06)
[2019-09-20] MEDS: Magnesium Chloride 64 MG TABCR 128 MG PO ×2 (11:07→17:19)
--- NOTE | 2019-09-20 12:21 | PDOC.CMIN ---
- If Service Date Differs Date of service: 09/20/19 Time of Service: 12:21 Care Management Initial Assess REASON FOR HOSPITALIZATION:: Acute respiratory failure PAST MEDICAL HISTORY/PAST SURGICAL HISTORY:: Medical History (Updated 05/21/19 @ 23:22 by Sujata Zimmer MD). Abnormal CT of the chest (Acute 03/18/17). stable 2mm nodule in [place]ILY[place]. Annual Chest CT for lung cancer screening recommended. Acute renal failure (Resolved 04/29/14). a. creatinine bumped from 0.8 to 2.9. b. h/o renal failure 06/2013, presented with creatinine 5.4, which normalized with IV fluids. Acute right-sided low back pain without sciatica (Acute 06/08/17). Pain rad thru buttock, but not down leg. Priformis Syndr? [ ] PT [ ] Hx Pain Clinic (Injctn #1 helped, #2 did not). Occasional relief from SOMA. Trial GABAPENTIN 06/09/18.in past. Anxiety and depression (Chronic). Bilateral pneumonia (Acute 04/29/14). A. Bilateral lower lobes. Cirrhosis. Cirrhosis of liver (Chronic). a. History of Hep C treatment. b. Liver biopsy 2005 positive for cirrhosis. 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 a. AFP levels every six months and ruq US every 12 months. COPD (chronic obstructive pulmonary disease) (Chronic). Ongoing tobacco use. COPD (chronic obstructive pulmonary disease). Diabetes (Chronic). On Metformin. Diabetes mellitus. Essential hypertension (Chronic). Well maintained, meds tolerated. Hepatitis C. HTN (hypertension). Hypertension (Chronic). Methadone dependence (Chronic). Neuropathy of right radial nerve (Chronic). a. recently had multiple falls and a hematoma around her humerus. b. resolving. Pleuritic chest pain (Acute 04/29/14). a. left sided. Polysubstance abuse (Chronic). a. h/o opiate overdose 06/2013 and 11/2013. b. recently started in [facility] program 03/13/2014 on oral methadone (missed her dose today). Shortness of breath (Acute). Spinal stenosis (Chronic). a. MRI 10/2009, showed L4-5 narrowing. Tobacco abuse (Chronic). Tobacco use disorder. Surgical History (Updated 05/21/19 @ 23:09 by Sujata Zimmer MD). Appendectomy (01/30/07). H/O: hysterectomy (Chronic). History of ankle surgery (Acute). left. S/P bilateral breast lumpectomy (Acute) PREVIOUS FUNCTIONAL STATUS/SOCIAL/FAMILY SUPPORTS:: Kira lives alone in a mobile home in [facility]. She uses [facility] for transportation and has many community supports which include Me[employer] on Wheels, [employer] [place], fuel assistance and [facility]. She has also recently received a eloy from [employer] for improvements to her home.Kira is independent at baseline. She attends a woman's support group at [facility] on . CURRENT FUNCTIONAL STATUS:: Kira was very pleasant and engaged during assessment. She states she recently obtained life line which she used several times this week prior to admission. She states she is feeling a little better today with less abdominal pain. She shares that she needs a last dose letter for [facility] which CM will coordinate on day of discharge. She states she will need [facility] for transportation home and she continues to receive support through [facility]. Kira is requesting a nutrition consult while inpatient due to recent weight loss, and she would like to obtain shake supplements through her insurance. ADVANCE DIRECTIVES:: None on file she would like a palliative care consult and agrees to see the [facility] through their service. CM left a voicemail for palliative care. Has patient been provided with information about the portal?: Yes Did the patient sign up for the portal?: No CODE STATUS:: Full Code INSURANCE COVERAGE / FINANCIAL ISSUES:: Medicare and Medicaid CURRENT HOME/COMMUNITY SERVICES/EQUIPMENT:: [facility], [facility], [employer], and [facility] PRIMARY CARE PHYSICIAN:: Dr. Friedman POTENTIAL DISCHARGE NEEDS:: Last dose letter for [facility]. Appointment scheduled with primary care prior to discharge. PATIENT/FAMILY EDUCATION NEEDS:: Discharge education, limitations and follow up plan of care including ask me three and self management. ANTICIPATED BARRIERS TO DISCHARGE:: None TRANSPORTATION:: VIA [facility] coordianted by CM, she will need to be discharged prior to closure of [facility] at 1230 so that she can obtain her take home doses. When scheduling [facility] please request a stop at [facility] prior to bringing her home. PLAN:: Kira will be discharged home when she is medically ready. She trino need a nutrition consult at her request and follow up with her provider. CM to continue to assess for discharge needs.
--- NOTE | 2019-09-20 13:39 | W.PM.PROGNOT ---
Date of Service Date of service: 09/20/19 Time of Service: 13:39 Assessment and Plan Assessment and plan (1) CAP (community acquired pneumonia): Status: Acute Assessment and plan: with concern for COVID-19, test results pending. continue ceftriaxone and azithromycin day 2/5. albuterol MDI, spiriva. hold off on steroids at this point. oxygenating well on room air. continue to closely monitor (2) Continuous opioid dependence: Status: Acute Assessment and plan: continue home methadone dose (3) Hypokalemia: Status: Acute Assessment and plan: d/t GI losses, poor po intake, diuretics, continue to replete and follow. (4) GERD (gastroesophageal reflux disease): Status: Chronic (5) Essential hypertension: Status: Chronic Assessment and plan: continue home medications. (6) DVT prophylaxis: Status: Acute Assessment and plan: TEDS, SCDs, enoxaparin (7) Discharge planning issues: Status: Acute Assessment and plan: home with services if appropriate when medically stable. Subjective Subjective Patient reports: nausea Exam Narrative Exam Narrative: Const General: cooperative, no acute distress, frail appearing and ill appearing chronically Nutritional Appearance: underweight Orientation: alert, awake and oriented x3 HENMT Head: normal to inspection, normocephalic and atraumatic Mouth: oral mucosae normal (slightly dry, no exudates) Resp Effort & Inspection: normal respiratory effort, able to speak in complete sentences and no audible wheezes, scattered coarse breath sounds in bases, no wheezing Cardio Rate: regular rate Rhythm: regular rhythm GI Inspection: normal to inspection Palpation: soft Skin General skin exam: no rashes or lesions noted Neuro General: patient alert, patient awake and patient oriented x3 Extrem General: normal to inspection, full ROM and no pedal edema Objective Objective Clinical Data: Abnormal lab results 09/20/19 09/20/19 09/20/19 Range/Units 06:45 06:45 09:15 WBC 20.36 H (4.4-10.8) k/cumm RBC 5.39 H (4.00-5.20) m/cumm MCV 76.8 L (80-95) fL MCH 25.0 L (27.0-33.0) pg RDW 16.4 H (11.7-14.6) % Plt Count 608 H (130-400) x1000/uL Absolute Neutrophils 16.08 H (1.2-6.7) k/cumm Absolute Monocytes 1.83 H (0.11-0.7) k/cumm PT 12.2 H (9.3-11.0) sec INR 1.2 H (0.9-1.1) Potassium 2.9 L* (3.5-5.1) mmol/L Chloride 96 L (98-107) mmol/L Carbon Dioxide 32.7 H (21.0-32.0) mmol/L BUN 22 H (7-18) mg/dL Glucose 111 H (74-106) mg/dL Alkaline Phosphatase 126 H (46-116) U/L Total Protein 8.6 H (6.4-8.2) g/dL Albumin 3.0 L (3.4-5.0) g/dL Vital Signs Temperature 37 C 09/20/19 10:55 Temperature Source Tympanic 09/20/19 10:55 Pulse 101 H 09/20/19 10:55 Pulse Rhythm Irregular 09/20/19 07:55 Respiratory Rate 16 09/20/19 10:55 Respiratory Effort Non-Labored 09/20/19 07:55 Respiratory Depth Normal 09/20/19 07:55 Respiratory Pattern Normal 09/19/19 23:45 Blood Pressure 123/83 09/20/19 10:55 Blood Pressure Mean 95 09/19/19 19:01 Pulse Oximetry 95 09/20/19 10:55 Oxygen Delivery Method Room Air 09/20/19 10:55 Oxygen Flow Rate 0 09/20/19 10:55 Pain Level 8 09/20/19 07:55 Comment 09/19/19 15:45 Intake & Output 09/19/19 09/20/19 09/20/19 23:59 11:59 23:59 Intake Total 102 / 102 102 / 502 400 / 502 Output Total 50 / 50 400 / 400 Balance 52 / 52 -298 / 102 400 / 102 Intake: IV 102 / 102 102 / 202 100 / 202 Oral 300 / 300 Output: Urine 50 / 50 400 / 400 Other: Urine Color Yellow Light Jo Urine Appearance Clear Clear Urine Odor None Normal Voiding Methods Toilet Laboratory Results WBC 20.36 k/cumm (4.4-10.8) H 09/20/19 06:45 RBC 5.39 m/cumm (4.00-5.20) H 09/20/19 06:45 Hgb 13.5 g/dL (12.0-15.5) 09/20/19 06:45 Hct 41.4 % (36.0-46.0) 09/20/19 06:45 MCV 76.8 fL (80-95) L 09/20/19 06:45 MCH 25.0 pg (27.0-33.0) L 09/20/19 06:45 MCHC 32.6 g/dL (32.0-36.0) 09/20/19 06:45 RDW 16.4 % (11.7-14.6) H 09/20/19 06:45 Plt Count 608 x1000/uL (130-400) H 09/20/19 06:45 MPV 10.0 fL (8.0-11.0) 09/20/19 06:45 Immature Gran % 0.0 % 09/20/19 06:45 Neutrophils % 79.0 09/20/19 06:45 Lymphocytes % 12.0 09/20/19 06:45 Monocytes % 9.0 09/20/19 06:45 Eosinophils % 0.0 09/20/19 06:45 Basophils % 0.0 09/20/19 06:45 Absolute Neutrophils 16.08 k/cumm (1.2-6.7) H 09/20/19 06:45 Absolute Lymphocytes 2.44 k/cumm (1.2-3.4) 09/20/19 06:45 Absolute Monocytes 1.83 k/cumm (0.11-0.7) H 09/20/19 06:45 Absolute Eosinophils 0.00 k/cumm (0.0-0.7) 09/20/19 06:45 Absolute Basophils 0.00 k/cumm (0.0-0.2) 09/20/19 06:45 Differential Comment Manual differential 09/20/19 06:45 PT 12.2 sec (9.3-11.0) H 09/20/19 09:15 INR 1.2 (0.9-1.1) H 09/20/19 09:15 Sodium 139 mmol/L (136-145) 09/20/19 06:45 Potassium 2.9 mmol/L (3.5-5.1) L* 09/20/19 06:45 Chloride 96 mmol/L (98-107) L 09/20/19 06:45 Carbon Dioxide 32.7 mmol/L (21.0-32.0) H 09/20/19 06:45 Anion Gap 10.3 mmol/L (3-11) 09/20/19 06:45 BUN 22 mg/dL (7-18) H 09/20/19 06:45 Creatinine 0.76 mg/dL (0.55-1.02) 09/20/19 06:45 Estimated GFR/1.73 m2 >= 60.00 (mL/min/1.73m2) 09/20/19 06:45 Glucose 111 mg/dL (74-106) H 09/20/19 06:45 Calcium 9.5 mg/dL (8.5-10.1) 09/20/19 06:45 Magnesium 2.1 mg/dL (1.8-2.4) 09/20/19 06:45 Total Bilirubin 0.4 mg/dL (0.2-1.0) 09/20/19 06:45 AST 20 U/L (15-37) 09/20/19 06:45 ALT 20 U/L (14-59) 09/20/19 06:45 Alkaline Phosphatase 126 U/L (46-116) H 09/20/19 06:45 Total Protein 8.6 g/dL (6.4-8.2) H 09/20/19 06:45 Albumin 3.0 g/dL (3.4-5.0) L 09/20/19 06:45
[2019-09-20 14:03] VITALS: BP 116/77; PULSE 100; TEMP 36.8; O2SAT 92
[2019-09-20] MEDS: Calcium Carbonate *TUMS* 500 MG CHEW 1000 MG PO (15:10)
[2019-09-20] MEDS: POTASSIUM CHLORIDE 10 MEQ/100 ML BAG 100 MEQ IVPB ×4 (15:11→19:59)
--- NOTE | 2019-09-20 15:33 | PHA.REVIEW ---
Pharmacy Admission Review - Admission Clinical Review (Last Reviewed 09/19/19 @ 16:20 by MARY CARMEN Diaz) Acute respiratory failure with hypoxia (Acute) CAP (community acquired pneumonia) (Acute) Continuous opioid dependence (Acute 09/11/06) Hypokalemia (Acute) Discharge planning issues (Acute) DVT prophylaxis (Acute) Shortness of breath (Acute) Bilateral pneumonia (Acute 04/29/14) gabapentin Adverse Reaction (Severe, Verified 09/19/19 15:50) Nausea metaxalone [Metaxalone] Adverse Reaction (Severe, Verified 09/19/19 15:50) nausea diclofenac [Diclofenac] Adverse Reaction (Intermediate, Verified 09/19/19 15:50) contraindicated w/ pt's liver promethazine Adverse Reaction (Mild, Verified 09/19/19 15:50) disoriented prochlorperazine Adverse Reaction (Unknown, Verified 09/19/19 15:50) disoriented Height 5 ft 1.5 in Weight 37.5 kg - Renal Dosing Renal Dosing: BUN 22 mg/dL (7-18) H 09/20/19 06:45 Creatinine 0.76 mg/dL (0.55-1.02) 09/20/19 06:45 Medications needing adjustments: Reviewed - Anticoagulation Anticoagulation: Hgb 13.5 g/dL (12.0-15.5) 09/20/19 06:45 Hct 41.4 % (36.0-46.0) 09/20/19 06:45 Plt Count 608 x1000/uL (130-400) H 09/20/19 06:45 INR 1.2 (0.9-1.1) H 09/20/19 09:15 Creatinine 0.76 mg/dL (0.55-1.02) 09/20/19 06:45 DVT Prohphylaxis: Reviewed Medications: Enoxaparin - Opiate Usage Evaluate Pain Scale/Pains Meds: Reviewed (daily methadone (75mg)) Scheduled Bowel Reg ordered if on Opiates?: No (PRN) - Relevant Labs Sodium 139 mmol/L (136-145) 09/20/19 06:45 Potassium 2.9 mmol/L (3.5-5.1) L* 09/20/19 06:45 Chloride 96 mmol/L (98-107) L 09/20/19 06:45 Magnesium 2.1 mg/dL (1.8-2.4) 09/20/19 06:45 Electrolytes, C-Reactive P, ESR: Reviewed (K+ 40 meq IV repleted) - DM Control DM Control: Glucose 111 mg/dL (74-106) H 09/20/19 06:45 Insulin Dosing: N/A - Heart Failure/SD EF%, MICKI's, B-Blockers, Diuretics: Reviewed (furosemide, lisinopril, spironolactone) - BP Control BP Control: Blood Pressure 116/77 Blood Pressure 123/83 Blood Pressure 134/104 If elevated: Reviewed - Qtc Review If Elevated: Reviewed (QTc 448) - IV to PO Switch IV Medications: Reviewed - Home Meds Home Med List reviewed: Reviewed - Current meds Current Medication Order Review: Reviewed (Ceftriaxone + azithromycin day 2; Covid test pending; hypokalemia due to GI losses - contonue to monitor/replete as needed)
[2019-09-20 16:45] VITALS: O2SAT 96
[2019-09-20 16:53] VITALS: BP 91/61; PULSE 84; RESP 18; TEMP 36.8; O2SAT 96
[2019-09-20] MEDS: Gabapentin 300 MG CAP 600 MG PO (21:14)
[2019-09-20] MEDS: cefTRIAXone 1 GM/50 ML BAG IVPB (21:14)
[2019-09-21 00:29] VITALS: BP 119/87; PULSE 83; RESP 16; TEMP 36.6; O2SAT 95
[2019-09-21 05:59] VITALS: BP 99/60; PULSE 76; RESP 16; TEMP 36.6; O2SAT 95
[2019-09-21 06:52] LABS: Abs Immature Grans 0.05 k/cumm (0.0-0.09); Absolute Lymphocyte Count 3.51 k/cumm (1.2-3.4); Absolute Monocyte Count 1.33 k/cumm (0.11-0.7); Basophils % 0.3; Eosinophils % 1.5; HCT 38.6 % (36.0-46.0); HGB 12.4 g/dL (12.0-15.5); Immature Grans % 0.3 %; Lymphocytes % 22.2; Mean Corp. HGB Concentration 32.1 g/dL (32.0-36.0); Mean Corpuscular Hemoglobin 25.4 pg (27.0-33.0); Mean Corpuscular Volume 79.1 fL (80-95); Mean Platelet Volume 9.8 fL (8.0-11.0); Monocytes % 8.4; Neutrophils % 67.3; Platelet Count 482 x1000/uL (130-400); RBC 4.88 m/cumm (4.00-5.20); RBC Distribution Width 16.4 % (11.7-14.6); White Blood Cell Count 15.82 k/cumm (4.4-10.8)
[2019-09-21 06:56] LABS: Absolute Basophil Count 0.05 k/cumm (0.0-0.2); Absolute Eosinophil Count 0.24 k/cumm (0.0-0.7); Absolute Neutrophil Count 10.65 k/cumm (1.2-6.7)
[2019-09-21 07:15] LABS: Anion Gap 4.8 mmol/L (3-11); BUN 19 mg/dL (7-18); CO2 30.2 mmol/L (21.0-32.0); CREATININE 0.77 mg/dL (0.55-1.02); Calcium 8.6 mg/dL (8.5-10.1); Chloride 101 mmol/L (98-107); Glucose 82 mg/dL (74-106); Potassium 4.9 mmol/L (3.5-5.1); Sodium 136 mmol/L (136-145)
[2019-09-21 07:33] VITALS: BP 108/62; PULSE 77; RESP 20; TEMP 36.8; O2SAT 93
[2019-09-21] MEDS: Tiotropium Bromide-Respimat 10 PUFF INH 2 PUFF IH (07:40)
[2019-09-21] MEDS: Spironolactone 50 MG TAB PO (07:41)
[2019-09-21] MEDS: buPROPion-XL 150 MG TABCR 300 MG PO (07:41)
[2019-09-21] MEDS: Cholecalciferol (Vitamin D3) 1,000 UNIT TAB 2000 UNITS PO (07:41)
[2019-09-21] MEDS: Enoxaparin 40 MG/0.4 ML SYR SC (07:41)
[2019-09-21] MEDS: Furosemide 20 MG TAB PO (07:42)
[2019-09-21] MEDS: Azithromycin 250 MG TAB PO (07:42)
[2019-09-21] MEDS: Gabapentin 300 MG CAP PO (07:42)
[2019-09-21] MEDS: Lisinopril 10 MG TAB PO (07:42)
[2019-09-21] MEDS: Methadone Liquid 10 MG/ML 75 MG PO (08:05)
[2019-09-21 09:04] LABS: COVID-19 RT-PCR Result Not Detected (NotDetected)
--- NOTE | 2019-09-21 09:07 | PDOC.CMPRO ---
- If Service Date Differs Date of service: 09/21/19 Time of Service: 09:07 Care Management Progress Note S/O: A: Kira is a 64 year old woman admitted on 09/19/19 with COPD, SOB,Pneumonia P: Kira will be discharged home when she is medically ready. She is currently being ruled out for COVID 19. She will need a nutrition consult at her request and follow up with her provider. CM to continue to assess for discharge needs.
[2019-09-21] MEDS: Magnesium Chloride 64 MG TABCR 128 MG PO (09:57)
--- NOTE | 2019-09-21 10:36 | DSE_ITS ---
Date of service: 09/21/19 Time of Service: 10:36 DS: Diagnosis Discharge Diagnosis (1) CAP (community acquired pneumonia): Start date: 09/21/19 Start time: 10:36 Status: Acute Asessment and Plan: Feeling much better. Breathing improved, not requiring oxygen. Negative COVID 19, given improvement in symptoms, will dis charge home on antbx course of azithromycin and cefpodxime (2) Continuous opioid dependence: Start date: 09/21/19 Start time: 10:42 Status: Acute Asessment and Plan: Continue to access [facility] for methadone (3) Hypokalemia: Start date: 09/21/19 Start time: 10:42 Status: Resolved (4) GERD (gastroesophageal reflux disease): Start date: 09/21/19 Start time: 10:43 Status: Chronic Asessment and Plan: Continue home medications (5) Essential hypertension: Start date: 09/21/19 Start time: 10:43 Status: Chronic Asessment and Plan: Continue home meds. Discharge Plan Disposition Patient Disposition: HOME Condition: Improving Discharge Details Chief Complaint: SOB Clinical Impression: COPD (chronic obstructive pulmonary disease), Bilateral pneumonia, Shortness of breath Reason For Visit: COPD, SOB, PNEUMONIA Admit Date/Time: 09/19/19 16:00 Admit Provider: River Sauer Attending Provider: River Sauer Primary Care Provider: Kirsten Friedman [facility] Hospital Course: 64 y.o female with PMH COPD, CKD, DM, GERD admitted from [facility] ED for CAP. On admission work up revealed bilateral pneumonia with normal procalcitonin, elevated WBC, d-dimer and CRP. COVID testing was done on admission with negative results, she was admitted to [facility] m/s for further management. During course of hospitalization patient was treated with Ceftriaxone and azithromycin. She did not require steroids. She was also treated with combivent and albuterol. Today she is feeling 80-90% better than on admission. Discussed with her about negative COVID, staying at home and finishing antibiotics. She is not requiring oxygen. LS diminished but without wheezing, rales or crackles. She feels ready to go home. She will be discharged home on cefpodoxime and azithromycin to finish course. She denies CP, SOB, N/V/D. Follow up with PCP in 1 week. Home Meds and New Rx's Prescriptions: New azithromycin 250 mg Tablet 250 mg PO DAILY Qty: 2 RF: 0 cefpodoxime 200 mg tablet 200 mg PO BID Qty: 6 RF: 0 Continued ipratropium-albuterol 0.5 mg-3 mg(2.5 mg base)/3 mL solution for nebulization 3 ml UPD Q6H PRN PRN (Reason: shortness of breath or wheezing) Qty: 90 RF: 3 cholecalciferol (vitamin D3) 2,000 unit capsule 2,000 unit PO DAILY RF: 0 Ensure Original 0.04-1.05 gram-kcal/mL liquid See Rx Instructions PO BID Qty: 237 RF: 3 methadone 10 mg/mL concentrate 75 mg PO DAILY RF: 0 spironolactone 25 mg tablet 50 mg PO BID Qty: 60 RF: 3 polyethylene glycol 3350 [Miralax] 17 GM powder in packet 17 g PO DAILY PRNRF: 0 triamcinolone acetonide 15 GM cream 1 lorraine Topical TID PRNQty: 30 RF: 2 ibuprofen 200 MG capsule 400 mg PO q8h PRN PAIN Qty: 200 RF: 1 lisinopril 10 mg tablet 10 mg PO DAILY Qty: 90 RF: 3 gabapentin 300 mg capsule 300 mg PO TID Qty: 90 RF: 3 albuterol sulfate [ProAir HFA] 90 mcg/actuation HFA aerosol inhaler 1 - 2 puff Inhalation Q6H PRN PRN (Reason: bronchospasm) Qty: 3 RF: 6 Breo Ellipta 200-25 mcg/dose blister with device 1 inh IH DAILY Qty: 60 RF: 3 hydroxyzine pamoate [Vistaril] 50 mg capsule 50 mg PO BID PRN (Reason: itching) Qty: 60 RF: 1 mirtazapine 30 mg tablet 30 mg PO HS Qty: 30 RF: 11 bupropion HCl 300 mg tablet extended release 24 hr 300 mg PO DAILY Qty: 90 RF: 3 Hold Instructions: Pt Stopped/Never Started magnesium chloride [Mag 64] 64 mg Tablet,Delayed Release (Dr/Ec) 128 mg PO BID Qty: 120 RF: 0 aspirin 81 mg Tablet,Delayed Release (Dr/Ec) 81 mg PO DAILY Qty: 30 RF: 0 furosemide 20 mg Tablet 20 mg PO BID RF: 0 Discontinued cefdinir 300 mg capsule 300 mg PO Q12H 10 Days Qty: 20 RF: 0 prednisone 20 mg tablet 40 mg PO DAILY 5 Days Qty: 10 RF: 0 No Action (DME) compressor, for nebulizer device See Dose Instructions .ROUTE .MEDSUPPLY Qty: 1 RF: 0 Discharge Instructions Instructions: Community Acquired Pneumonia (DC) Additional Instructions: Follow up with PCP in 1 week, call. Take azithromycin for 2 days, take cefpodoxime 2 times a day until finished. Referrals: Vicki Anaya [[facility]] - (recommendations for high caloric intake, continues to loose weight. ) Activity:: Activity as Tolerated Equipment/Supplies:: No Equipment Needed Diet:: As Tolerated Discharge Orders Discharge Orders: Discharge Order (Routine); Ordered 09/21/19 Ordered By: Carlene Virk DS: Summary Status at Discharge Functional status at discharge: independent ambulation Overall status at discharge: patient is progressing back to baseline Mental Status: mental status grossly normal Speech and Movement: speech and movement normal Mood: congruent mood Affect: normal affect Exam Narrative Exam Narrative: Const General: cooperative, no acute distress, frail appearing and ill appearing chronically Nutritional Appearance: underweight Orientation: alert, awake and oriented x3 HENMT Head: normal to inspection, normocephalic and atraumatic Mouth: oral mucosae normal (slightly dry, no exudates) Resp Effort & Inspection: normal respiratory effort, able to speak in complete sentences and, LSD throughout, no wheezing Cardio Rate: regular rate Rhythm: regular rhythm GI Inspection: normal to inspection Palpation: soft Skin General skin exam: no rashes or lesions noted Neuro General: patient alert, patient awake and patient oriented x3 Extrem General: normal to inspection, full ROM and no pedal edema Psych Mental Status: mental status grossly normal Speech and Movement: speech and movement normal Mood: congruent mood Affect: normal affect DS: Data Vitals/I&O Vitals and I&O: Vital Signs Temperature 36.8 C 09/21/19 07:33 Temperature Source Tympanic 09/21/19 07:33 Pulse 77 09/21/19 07:33 Pulse Rhythm Regular 09/21/19 08:01 Respiratory Rate 20 09/21/19 07:33 Respiratory Effort Non-Labored 09/21/19 08:01 Respiratory Depth Normal 09/21/19 08:01 Respiratory Pattern Normal 09/21/19 08:01 Blood Pressure 108/62 09/21/19 07:33 Blood Pressure Mean 95 09/19/19 19:01 Pulse Oximetry 93 L 09/21/19 07:33 Oxygen Delivery Method Room Air 09/21/19 07:33 Oxygen Flow Rate 0 09/21/19 07:33 Pain Level 0 09/21/19 08:05 Comment 09/19/19 15:45 Intake & Output 09/20/19 09/20/19 09/21/19 11:59 23:59 11:59 Intake Total 102 / 2365.333 2263.333 / 2365.333 385 / 385 Output Total 400 / 1300 900 / 1300 800 / 800 Balance -298 / 7440.667 7350.333 / 1065.333 -415 / -415 Weight 37.5 kg Intake: IV 102 / 865.333 763.333 / 865.333 385 / 385 Oral 1500 / 1500 Output: Urine 400 / 1300 900 / 1300 800 / 800 Other: Urine Color Light Jo Yellow Yellow Light Jo Urine Appearance Clear Clear Clear Urine Odor Normal None Normal Comment up to br with assist Emesis Description None Voiding Methods Toilet Toilet Toilet Data Completed and Pending Completed studies during hospitalization [Text1]: FINDINGS: CT angiography of the chest was performed with the injection of 80 cc of Omnipaque 350, scanning of the abdomen and pelvis was also obtained. No evidence of pulmonary embolic disease. No significant thoracic aortic abnormality. No mediastinal or hilar adenopathy. No pleural effusion seen. There are diffuse emphysematous changes. There is diffuse septal prominence and peripheral reticular radiodensities, minimal honeycombing may be present posteriorly in the right upper lobe. There are multiple focal areas of increased radiodensity which are predominantly peripheral and which could represent small focal areas of atelectasis, consolidation, or scarring. Scattered ground-glass and vaguely reticulo nodular opacities are also seen. Patient had markedly abnormal chest films in October and May 2019. These showed scattered and diffuse predominantly reticulo nodular pulmonary opacities with probable multiple superimposed areas of consolidation in May 2019. The findings on today's examination would be consistent with chronic predominantly fibrotic radiodensities with multiple focal areas of superimposed abnormality which may be chronic and/or acute. I am uncertain what the baseline appearance of the lungs is in this patient and, following treatment, I would recommend a follow-up chest CT in 1-3 months. Findings were discussed with Dr. Bhavana Odonnell in the ED. FINDINGS: Pulmonary arteries: There is no evidence for PE. Aorta: Unremarkable. No aortic aneurysm. No aortic dissection. Lungs: Centrilobular emphysema is present. Pulmonary parenchymal abnormalities include scattered ground-glass attenuation with septal thickening which may reflect interstitial edema. . Nodular opacities compatible with nonspecific small airways disease. . Pleural space: Unremarkable. No pneumothorax. No pleural effusion. Heart: Unremarkable. No cardiomegaly. No pericardial effusion. Lymph nodes: Small nonspecific mediastinal lymph nodes are present. Bones/joints: Old rib fracture deformities noted Soft tissues: Unremarkable. IMPRESSION: 1. Pulmonary parenchymal abnormalities include scattered ground-glass attenuation with septal thickening which may reflect interstitial edema. . 2. Nodular opacities compatible with nonspecific small airways disease. . Labs on day of discharge: Labs from last 24 hours 09/21/19 09/21/19 09/19/19 06:15 06:15 20:30 WBC 15.82 H RBC 4.88 Hgb 12.4 Hct 38.6 MCV 79.1 L MCH 25.4 L MCHC 32.1 RDW 16.4 H Plt Count 482 H MPV 9.8 Immature Gran % 0.3 Neutrophils % 67.3 Lymphocytes % 22.2 Monocytes % 8.4 Eosinophils % 1.5 Basophils % 0.3 Absolute Neutrophils 10.65 H Absolute Lymphocytes 3.51 H Absolute Monocytes 1.33 H Absolute Eosinophils 0.24 Absolute Basophils 0.05 Sodium 136 Potassium 4.9 D Chloride 101 Carbon Dioxide 30.2 Anion Gap 4.8 BUN 19 H Creatinine 0.77 Estimated GFR/1.73 m2 >= 60.00 Glucose 82 Calcium 8.6 Coronavirus (PCR) Not detected [facility] Medical History Abnormal CT of the chest (Acute 03/18/17) stable 2mm nodule in AILYN Annual Chest CT for lung cancer screening recommended Acute renal failure (Resolved 04/29/14) a. creatinine bumped from 0.8 to 2.9 b. h/o renal failure 06/2013, presented with creatinine 5.4, which normalized with IV fluids Acute right-sided low back pain without sciatica (Acute 06/08/17) Pain rad thru buttock, but not down leg. Priformis Syndr? [ ] PT [ ] Hx Pain Clinic (Injctn #1 helped, #2 did not). Occasional relief from SOMA. Trial GABAPENTIN 06/09/18.in past Anxiety and depression (Chronic) Bilateral pneumonia (Acute 04/29/14) A. Bilateral lower lobes Cirrhosis Cirrhosis of liver (Chronic) a. History of Hep C treatment. b. Liver biopsy 2005 positive for cirrhosis. 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 AFP levels every six months and ruq US every 12 months COPD (chronic obstructive pulmonary disease) (Chronic) Ongoing tobacco use. COPD (chronic obstructive pulmonary disease) (Chronic) Diabetes (Chronic) On Metformin. Diabetes mellitus Essential hypertension (Chronic) Well maintained, meds tolerated. Hepatitis C HTN (hypertension) Hypertension (Chronic) Methadone dependence (Chronic) Neuropathy of right radial nerve (Chronic) a. recently had multiple falls and a hematoma around her humerus b. resolving Pleuritic chest pain (Acute 04/29/14) a. left sided Polysubstance abuse (Chronic) a. h/o opiate overdose 06/2013 and 11/2013 b. recently started in [facility] program 03/13/2014 on oral methadone (missed her dose today) Shortness of breath (Acute) Spinal stenosis (Chronic) a. MRI 10/2009, showed L4-5 narrowing Tobacco abuse (Chronic) Tobacco use disorder Surgical History Appendectomy (01/30/07) H/O: hysterectomy (Chronic) History of ankle surgery (Acute) left S/P bilateral breast lumpectomy (Acute) Family History Mother Myocardial infarction Stroke Sister Diabetes Myocardial infarction Sister Diabetes Father Diabetes Alcohol abuse Myocardial infarction Social History Smoking/Tobacco Use Status: Current every day Tobacco Type: cigarettes Smoking packs per day: 1 Smoking cigarettes per day: 20.0 Years smoked: 40 Smoking pack- years: 40.00 Quit status: considering quitting Counseling given: other Details: pt feels motivated and states she doesnt enjoy them now Alcohol Intake: never Drug use: Current Sobriety Substance use type: heroin Details: on [facility] clinic Adopted: No Household members: none Housing: house Communication Needs: None Pets and animals: Yes Pets and animals: cat(s) What is your relationship status?: Panel score (0-1 are the most socially isolated patients): 0 What type of physical activity do you participate in: none Seatbelt use: always Drive intox or ride w/intox 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
[2019-09-21 11:15] VITALS: BP 113/76; PULSE 90; RESP 18; TEMP 37; O2SAT 92
--- NOTE | 2019-09-21 12:30 | CMDISCH_ITS ---
- If Service Date Differs Date of service: 09/21/19 Time of Service: 12:30 LACE Index Scoring Tool - Questions: Length of Stay (in days): 2 Acuity (Admit via E.D.?): Yes Comorbidities: Diabetes w/o Complication, Chronic Pulmonary Disease E.D. Visits: 3 - Answers: Total Score: 11 Risk of Readmission: High Risk Care Management Discharge Reason for Hospitalization: Acute respiratory failure Discharge Plan: Kira will be discharged home with no new services. She will follow up with [facility] for methadone maintenance and with her PCP. Kira will transport with [facility]. Patient/Family Education Needs: Discharge plan, limitations, follow up plan, Ask Me Three.
--- NOTE | 2019-09-26 15:15 | W.NUTRFU ---
Date of service: 09/26/19 Time of Service: 15:15 Nutritional Follow up NOTE: I spoke with Kira via phone to answer questions regarding purchasing supplements to help with weight regain. Kira recently hospitalized at [facility] for PNA. PMH: COPD, fluid overload, CKD, DM, opioid dependence ([facility] patient, methadone) She report 40 lbs weight loss in last year, now with BMI of 15 indicating severe underweight status. She reports adequate access to nutritious foods, and cannot identify factors that have caused weight loss. She reports some reduction of appetite. Recommended that she include either ensure, boost or store brand supplement twice daily, or if too costly, to drink [place] Instant Breakfast with whole milk twice daily. Diet recall indicates adequate calories/nutrients in last 24 hours. Provided my contact information if needs further information. Time Spent in Nutritional Counseling and Treatment: 15 minutes spent speaking on phone
== END 2019-09-21 11:44 | disposition home or self-care (01) | DRG 193 ==
LOC: ER 16:27 → RCU 19:50 → MS 09-21 10:25
PROVIDERS: Internal Medicine; Nurse Practitioner Acute Care; Admitting Provider Family Medicine; Emergency Provider Physician Assistant; PCP Student in an Organized Health Care Education/Training Program; Visit Provider Family Medicine
DX: J18.9 Pneumonia, unspecified organism (principal); J96.01 Acute respiratory failure with hypoxia; J44.0 Chronic obstructive pulmonary disease with (acute) lower respiratory infection; F11.20 Opioid dependence, uncomplicated; E87.6 Hypokalemia; K21.9 Gastro-esophageal reflux disease without esophagitis; I10 Essential (primary) hypertension; E11.22 Type 2 diabetes mellitus with diabetic chronic kidney disease; N18.9 Chronic kidney disease, unspecified; F17.210 Nicotine dependence, cigarettes, uncomplicated; B18.2 Chronic viral hepatitis C; I12.9 Hypertensive chronic kidney disease with stage 1 through stage 4 chronic kidney disease, or unspecified chronic kidney disease
CPT/HCPCS: 36415; 71275; 74177; 80048; 80053; 82805; 83690; 84145; 93005; 96365; 96374; 96375; 96376; 99223; 99233; 99239; 99285; J1650; U0003; 82248; 82728; 83605; 83615; 83735; 83880; 84484; 85025; 85379; 85610; 85730; 86140; 99284; J0456; J0696; J1200; J2405; J2930; J3480; J3490

== ENCOUNTER 2019-10-28 07:39 | Inpatient (IN) | payer MEDICARE, MEDICAID, SELFPAY ==
[2019-10-28] VITALS (44 sets, daily range): BP systolic 114–153; BP diastolic 67–120; PULSE 93–120; RESP 16–37; TEMP 36.2–37.5; O2SAT 94–100
--- NOTE | 2019-10-28 08:30 | DI.CT_ITS ---
EXAM: CT CHEST PE CTA CLINICAL HISTORY: Tachycardia, shortness of breath, back pain. TECHNIQUE: Imaging Protocol: Axial CT angiography was performed with multi-slice acquisition and mu lti-planar and/or 3D reconstructions. CONTRAST MATERIAL: Intravenous: Omnipaque 350 Contrast volume:50 mL COMPARISON: CT CT CHEST PE ABD PELVIS W from 09/19/2019 FINDINGS: Pulmonary Arteries: No evidence of filling defect to suggest pulmonary emboli. Tracheobronchial tree: Patent where visualized. Mediastinum and Shelia: No dominant adenopathy or fluid collection. Pulmonary parenchyma: Scattered areas of consolidation. Worsened areas of septal thickening are seen in the mid and lower lung zones concerning for edema. Pleura: No effusion or pneumothorax. Heart: The heart is not dilated. Coronary artery calcifications are present. No significant pericard ial effusion. Aorta: Thoracic aorta non-dilated. Atherosclerosis. No evidence of dissection. Upper abdomen: Unremarkable. Bones: Degenerative changes. Prominent thoracic kyphosis. IMPRESSION: 1. No evidence of pulmonary embolism, thoracic aortic dissection or aneurysm. 2. Slight improvement in bilateral consolidative areas. 3. Worsening septal thickening in the lungs concerning for edema. RADIATION DOSE DELIVERED: Total DLP DATA REPOSITORY: All CT scans at this facility are submitted to the National Radiology Data Registry (NRDR) Dose Index Registry (DIR) with the [employer] (ACR). RADIATION OPTIMIZATION: All CT scans at this facility use at least one of these dose optimization te chniques: automated exposure control; mA and/or kV adjustment per patient size (includes targeted exa ms where dose is matched to clinical indication); or iterative reconstruction.
[2019-10-28 08:34] LABS: Abs Immature Grans 0.05 k/cumm (0.0-0.09); Absolute Basophil Count 0.05 k/cumm (0.0-0.2); Absolute Eosinophil Count 0.14 k/cumm (0.0-0.7); Absolute Lymphocyte Count 1.79 k/cumm (1.2-3.4); Absolute Neutrophil Count 12.45 k/cumm (1.2-6.7); Basophils % 0.3; Eosinophils % 0.9; HCT 43.3 % (36.0-46.0); HGB 14.4 g/dL (12.0-15.5); Immature Grans % 0.3 %; Lymphocytes % 11.9; Mean Corp. HGB Concentration 33.3 g/dL (32.0-36.0); Mean Corpuscular Hemoglobin 25.2 pg (27.0-33.0); Mean Corpuscular Volume 75.8 fL (80-95); Mean Platelet Volume 9.3 fL (8.0-11.0); Neutrophils % 82.6; Platelet Count 421 x1000/uL (130-400); RBC 5.71 m/cumm (4.00-5.20); RBC Distribution Width 17.5 % (11.7-14.6); White Blood Cell Count 15.07 k/cumm (4.4-10.8)
[2019-10-28 08:47] LABS: ALT 22 U/L (14-59); AST 20 U/L (15-37); Albumin 3.6 g/dL (3.4-5.0); Alkaline Phosphatase 125 U/L (46-116); Anion Gap 9.2 mmol/L (3-11); BUN 16 mg/dL (7-18); Bilirubin, Total 0.3 mg/dL (0.2-1.0); CO2 28.8 mmol/L (21.0-32.0); CREATININE 0.67 mg/dL (0.55-1.02); Calcium 9.6 mg/dL (8.5-10.1); Chloride 95 mmol/L (98-107); Glucose 130 mg/dL (74-106); Potassium 3.3 mmol/L (3.5-5.1); Sodium 133 mmol/L (136-145); Total Protein 8.6 g/dL (6.4-8.2)
[2019-10-28 08:59] LABS: INR 1.1 (0.9-1.1); PTT Activated 26.1 sec (21.0-31.4)
[2019-10-28] MEDS: Ondansetron 4 MG/2 ML VIAL IVP ×3 (09:00→22:29)
[2019-10-28 09:08] LABS: Troponin I < 0.05 ng/Ml (<0.06)
[2019-10-28] MEDS: Omnipaque 350 MG/ML 50 ML BTL IJ (09:15)
[2019-10-28 09:35] LABS: D-Dimer 717 ng/mlFEU (<500)
--- NOTE | 2019-10-28 10:04 | DI.VRAD_ITS ---
PROCEDURE INFORMATION: Exam: CT Angiography Chest With Contrast Exam date and time: 10/28/2019 9:28 AM Age: 64 years old Clinical indication: Shortness of breath TECHNIQUE: Imaging protocol: Computed tomographic angiography of the chest with intravenous contrast. 3D rendering: MIP and/or 3D reconstructed images were created by the technologist. Contrast material: OMNIPAQUE 350; Contrast volume: 50 ml; Contrast route: IV; COMPARISON: CT CHEST PE ABD PELVIS W 09/19/2019 7:37 AM FINDINGS: Pulmonary arteries: Negative for acute pulmonary embolism. Aorta: Unremarkable. No aortic aneurysm. No aortic dissection. Lungs: Centrilobular emphysema. Continued patchy areas of consolidation bilaterally, demonstrating slight improvement in the upper lobes. Worsening septal thickening in the mid and lower lung zones, concerning for edema. Pleural space: Unremarkable. No pneumothorax. No pleural effusion. Heart: Unremarkable. No cardiomegaly. No pericardial effusion. Lymph nodes: Unremarkable. No enlarged lymph nodes. Bones/joints: Severe thoracic kyphosis. Soft tissues: Unremarkable. IMPRESSION: 1. Negative for acute pulmonary embolism. 2. Continued patchy areas of consolidation bilaterally, demonstrating slight improvement in the upper lobes. 3. Worsening septal thickening in the mid and lower lung zones, concerning for edema. Dictated and Authenticated by: Ivelisse Ruiz MD. Ordering:NIKOLAI Palomares MD
--- NOTE | 2019-10-28 10:26 | W.ED.GENAD ---
Discharge Plan Disposition Patient Disposition: OTHER Condition: Serious Discharge Details Chief Complaint: SOB Clinical Impression: Bilateral pneumonia Primary Care Provider: Kirsten Friedman ED Provider: Jelani Stevens Home Meds and New Rx's Prescriptions: No Action ipratropium-albuterol 0.5 mg-3 mg(2.5 mg base)/3 mL solution for nebulization 3 ml UPD Q6H PRN PRN (Reason: shortness of breath or wheezing) Qty: 90 RF: 3 cholecalciferol (vitamin D3) 2,000 unit capsule 2,000 unit PO DAILY RF: 0 Ensure Original 0.04-1.05 gram-kcal/mL liquid See Rx Instructions PO BID Qty: 237 RF: 3 methadone 10 mg/mL concentrate 75 mg PO DAILY RF: 0 (DME) compressor, for nebulizer device See Dose Instructions .ROUTE .MEDSUPPLY Qty: 1 RF: 0 omeprazole 20 mg capsule,delayed release(DR/EC) 20 mg PO DAILY Qty: 14 RF: 0 polyethylene glycol 3350 [Miralax] 17 GM powder in packet 17 g PO DAILY PRNRF: 0 triamcinolone acetonide 15 GM cream 1 lorraine Topical TID PRNQty: 30 RF: 2 ibuprofen 200 MG capsule 400 mg PO q8h PRN PAIN Qty: 200 RF: 1 lisinopril 10 mg tablet 10 mg PO DAILY Qty: 90 RF: 3 albuterol sulfate [ProAir HFA] 90 mcg/actuation HFA aerosol inhaler 1 - 2 puff Inhalation Q6H PRN PRN (Reason: bronchospasm) Qty: 3 RF: 6 Breo Ellipta 200-25 mcg/dose blister with device 1 inh IH DAILY Qty: 60 RF: 3 mirtazapine 30 mg tablet 30 mg PO HS Qty: 30 RF: 11 bupropion HCl 300 mg tablet extended release 24 hr 300 mg PO DAILY Qty: 90 RF: 3 Hold Instructions: Pt Stopped/Never Started hydroxyzine pamoate [Vistaril] 50 mg capsule 50 mg PO BID PRN (Reason: itching) Qty: 60 RF: 1 gabapentin 300 mg capsule 300 mg PO TID Qty: 90 RF: 3 spironolactone 25 mg tablet 50 mg PO BID Qty: 120 RF: 3 magnesium chloride [Mag 64] 64 mg Tablet,Delayed Release (Dr/Ec) 128 mg PO BID Qty: 120 RF: 0 aspirin 81 mg Tablet,Delayed Release (Dr/Ec) 81 mg PO DAILY Qty: 30 RF: 0 furosemide 20 mg Tablet 20 mg PO BID RF: 0 Medical Decision Making This is a 64-year-old female who appears older than stated age, thin, frail, presenting via EMS. She has an extensive past medical history, continues to smoke, and has a hospitalization the ninth of last month for pneumonia. She reports that she did feel somewhat better but her symptoms never resolved, worsening over the past 4 days. Upon examination she does present with mild tachypnea and tachycardia however no hypoxia. She appears slightly short of breath but is able to speak in full sentences. She denies any chest pain however does report shortness of breath associated with back pain. Will initiate cardiac work-up and given her back pain, tachypnea, tachycardia, will obtain chest x-ray and go straight to CTA for possible PE rule out. Laboratory values reveal a white count of 15.07, she is not currently taking any steroids, this does appear to be near her baseline. Hemoglobin 14.4 hematocrit 43.3 platelet count 421. Absolute neutrophils 12.45. D-dimer 717. Sodium 133, potassium 3.3 chloride 95. Creatinine 0.67 GFR greater than 60. Patient was initially given 2 mg IV morphine for her back pain. She reports minimal improvement. She did have one episode of vomiting which required 4 mg of IV Zofran. Subsequently back pain was worse, given 4 mg of morphine, reports this helped. Upon reevaluation her heart rate is now in the 90s and her respiratory rate is in the low 20s. CTA results are negative for acute pulmonary embolism. Continued patchy areas of consolidation bilaterally, demonstrating slight improvement in the upper lobes. Worsening septal thickening in the mid and lower lung zones, concerning for edema. I discussed the work-up and CT findings with patient. Discussed treating as an outpatient versus requiring hospital admission. Patient reports that she feels too ill and does not believe that she can go home safely. Looking at her previous admission, she had initially tried to go home and then subsequently returned to the ER for admission. Blood cultures are being obtained. Given she is likely going to be admitted, will obtain COVID as well. With her recent hospitalization, 5 weeks ago, I will discuss admission and antibiotic therapy with our hospitalist team. I discussed the case with Dr. Michaud who is agreeable to admit the patient to his services. We discussed community-acquired versus hospital-acquired pneumonia options. He feels as though initiating ceftriaxone and azithromycin therapy is reasonable. I have ordered both of these antibiotics. Medical Records Medical records reviewed: Yes I reviewed the patient's medical records. Imaging Data Radiologic Study: Attestation: I personally reviewed and interpreted this imaging study as follows: Imaging: CT Scan Radiologist's impression: Read by virtual radiology as no acute pulmonary embolism. Continued patchy areas of consolidation bilaterally, demonstrating slight improvement in the upper lobes. Worsening septal thickening in the mid and lower lung zones, concerning for edema. Lab Data Lab results reviewed: Yes I reviewed the patient's lab results. Lab results narrative: 10/28/19 10:04 Blood Blood Culture - Pending 10/28/19 10:04 Blood Blood Culture - Pending Laboratory Tests Range/Units 10/28/19 10/28/19 10/28/19 08:20 08:20 08:20 WBC (4.4-10.8) k/cumm 15.07 H RBC (4.00-5.20) m/cumm 5.71 H Hgb (12.0-15.5) g/dL 14.4 Hct (36.0-46.0) % 43.3 MCV (80-95) fL 75.8 L MCH (27.0-33.0) pg 25.2 L MCHC (32.0-36.0) g/dL 33.3 RDW (11.7-14.6) % 17.5 H Plt Count (130-400) x1000/uL 421 H MPV (8.0-11.0) fL 9.3 Immature Gran % % 0.3 Neutrophils % 82.6 Lymphocytes % 11.9 Monocytes % 4.0 Eosinophils % 0.9 Basophils % 0.3 Absolute Neutrophils (1.2-6.7) k/cumm 12.45 H Absolute Lymphocytes (1.2-3.4) k/cumm 1.79 Absolute Monocytes (0.11-0.7) k/cumm 0.60 Absolute Eosinophils (0.0-0.7) k/cumm 0.14 Absolute Basophils (0.0-0.2) k/cumm 0.05 PT (9.3-11.0) sec INR (0.9-1.1) APTT (21.0-31.4) sec D-Dimer (<500) ng/mlFEU Sodium (136-145) mmol/L 133 L Potassium (3.5-5.1) mmol/L 3.3 L Chloride (98-107) mmol/L 95 L Carbon Dioxide (21.0-32.0) mmol/L 28.8 Anion Gap (3-11) mmol/L 9.2 BUN (7-18) mg/dL 16 Creatinine (0.55-1.02) mg/dL 0.67 Estimated GFR/1.73 m2 (mL/min/1.73m2) >= 60.00 Glucose (74-106) mg/dL 130 H Calcium (8.5-10.1) mg/dL 9.6 Total Bilirubin (0.2-1.0) mg/dL 0.3 AST (15-37) U/L 20 ALT (14-59) U/L 22 Alkaline Phosphatase (46-116) U/L 125 H Troponin I (<0.06) ng/Ml < 0.05 Total Protein (6.4-8.2) g/dL 8.6 H Albumin (3.4-5.0) g/dL 3.6 Range/Units 10/28/19 10/28/19 08:20 08:27 WBC (4.4-10.8) k/cumm RBC (4.00-5.20) m/cumm Hgb (12.0-15.5) g/dL Hct (36.0-46.0) % MCV (80-95) fL MCH (27.0-33.0) pg MCHC (32.0-36.0) g/dL RDW (11.7-14.6) % Plt Count (130-400) x1000/uL MPV (8.0-11.0) fL Immature Gran % % Neutrophils % Lymphocytes % Monocytes % Eosinophils % Basophils % Absolute Neutrophils (1.2-6.7) k/cumm Absolute Lymphocytes (1.2-3.4) k/cumm Absolute Monocytes (0.11-0.7) k/cumm Absolute Eosinophils (0.0-0.7) k/cumm Absolute Basophils (0.0-0.2) k/cumm PT (9.3-11.0) sec 11.0 Cancelled INR (0.9-1.1) 1.1 Cancelled APTT (21.0-31.4) sec 26.1 D-Dimer (<500) ng/mlFEU 717 H Sodium (136-145) mmol/L Potassium (3.5-5.1) mmol/L Chloride (98-107) mmol/L Carbon Dioxide (21.0-32.0) mmol/L Anion Gap (3-11) mmol/L BUN (7-18) mg/dL Creatinine (0.55-1.02) mg/dL Estimated GFR/1.73 m2 (mL/min/1.73m2) Glucose (74-106) mg/dL Calcium (8.5-10.1) mg/dL Total Bilirubin (0.2-1.0) mg/dL AST (15-37) U/L ALT (14-59) U/L Alkaline Phosphatase (46-116) U/L Troponin I (<0.06) ng/Ml Total Protein (6.4-8.2) g/dL Albumin (3.4-5.0) g/dL HPI General Mode of arrival: EMS. Date/Time Provider Initiated Documentation: 10/28/19 08:14. Limitations to Documentation: no limitations. Information obtained by: patient. HPI Narrative: This is a 64-year-old female who presents to the ER via EMS with a history of COPD, continues to smoke, diabetes, cirrhosis, methadone dependence, hypertension, with recent admission to our facility last month on the for pneumonia. She reports that she felt somewhat better but felt as though it never completely resolved, now feeling worse over the past 4 days. She reports a mild chronic cough which is essentially unchanged however now her symptoms include worsening dyspnea, general fatigue, and back pain. She denies any headache or fever. She denies abdominal pain, dysuria, pain or swelling in her legs. She does report nausea with vomiting. She has increased her neb treatments over the past 24 hours with no improvement of her symptoms. Related Data Home Medications Medication Instructions Recorded Confirmed polyethylene glycol 3350 [Miralax] 17 g PO DAILY PRN packet 07/30/13 10/28/19 triamcinolone acetonide 1 lorraine TOPICAL TID PRN #30 gm 09/07/17 10/24/19 ibuprofen 400 mg PO q8h PRN PAIN #200 tab-cap 12/21/17 10/28/19 compressor, for nebulizer #1 each 09/28/18 10/24/19 methadone 10 mg/mL oral concentrate 75 mg PO DAILY ml 09/28/18 10/28/19 magnesium chloride [Mag 64] 128 mg PO BID #120 tab 10/04/18 10/28/19 cholecalciferol (vitamin D3) 50 2,000 unit PO DAILY 01/24/19 10/28/19 mcg (2,000 unit) capsule ipratropium 0.5 mg-albuterol 3 mg 3 ml UPD Q6H PRN PRN #90 ml 01/24/19 10/28/19 (2.5 mg base)/3 mL nebulization soln lisinopril 10 mg tablet 10 mg PO DAILY #90 tab-cap 03/22/19 10/28/19 aspirin 81 mg PO DAILY #30 tab 05/24/19 10/28/19 albuterol sulfate 90 mcg/actuation 1 - 2 puff INHALATION Q6H PRN PRN 07/06/19 10/28/19 aerosol inhaler #3 inhaler fluticasone furoate 200 1 inh IH DAILY #60 each 07/06/19 10/28/19 mcg-vilanterol 25 mcg/dose inhalation powder mirtazapine 30 mg tablet 30 mg PO HS #30 tab-cap 07/26/19 10/28/19 bupropion HCl 300 mg 24 hr tablet, 300 mg PO DAILY #90 tab 08/16/19 10/28/19 extended release food supplemt, lactose-reduced See Rx Instructions PO BID #237 ml 08/19/19 10/28/19 0.04 gram-1.05 kcal/mL oral liquid furosemide 20 mg PO BID 09/19/19 10/28/19 hydroxyzine pamoate 50 mg capsule 50 mg PO BID PRN #60 cap 09/22/19 10/28/19 omeprazole 20 mg capsule,delayed 20 mg PO DAILY #14 cap 09/28/19 10/28/19 release gabapentin 300 mg capsule 300 mg PO TID #90 cap 10/01/19 10/28/19 spironolactone 25 mg tablet 50 mg PO BID #120 tab 10/16/19 10/28/19 Previous Rx's Medication Instructions Recorded ibuprofen 400 mg PO q8h PRN PAIN #200 tab-cap 12/21/17 compressor, for nebulizer #1 each 09/28/18 magnesium chloride [Mag 64] 128 mg PO BID #120 tab 10/04/18 ipratropium 0.5 mg-albuterol 3 mg 3 ml UPD Q6H PRN PRN #90 ml 01/24/19 (2.5 mg base)/3 mL nebulization soln lisinopril 10 mg tablet 10 mg PO DAILY #90 tab-cap 03/22/19 aspirin 81 mg PO DAILY #30 tab 05/24/19 albuterol sulfate 90 mcg/actuation 1 - 2 puff INHALATION Q6H PRN PRN 07/06/19 aerosol inhaler #3 inhaler fluticasone furoate 200 1 inh IH DAILY #60 each 07/06/19 mcg-vilanterol 25 mcg/dose inhalation powder mirtazapine 30 mg tablet 30 mg PO HS #30 tab-cap 07/26/19 bupropion HCl 300 mg 24 hr tablet, 300 mg PO DAILY #90 tab 08/16/19 extended release food supplemt, lactose-reduced See Rx Instructions PO BID #237 ml 08/19/19 0.04 gram-1.05 kcal/mL oral liquid hydroxyzine pamoate 50 mg capsule 50 mg PO BID PRN #60 cap 09/22/19 omeprazole 20 mg capsule,delayed 20 mg PO DAILY #14 cap 09/28/19 release gabapentin 300 mg capsule 300 mg PO TID #90 cap 10/01/19 spironolactone 25 mg tablet 50 mg PO BID #120 tab 10/16/19 Allergies Allergy/AdvReac Type Severity Reaction Status Date / Time gabapentin AdvReac Severe Nausea Verified 10/28/19 07:55 metaxalone [Metaxalone] AdvReac Severe nausea Verified 10/28/19 07:55 diclofenac [Diclofenac] AdvReac Intermediate contraindicated Verified 10/28/19 07:55 w/ pt's liver promethazine AdvReac Mild disoriented Verified 10/28/19 07:55 prochlorperazine AdvReac Unknown disoriented Verified 10/28/19 07:55 General Stated Complaint: SOB JANNIE: 2 Review of Systems Constitutional Constitutional: Reports fatigue, Denies fever(s), Denies headache(s) and Reports weakness ENT Ears, Nose, Mouth, and Throat: Denies headache(s) and Denies sore throat Cardiovascular Cardiovascular: Denies chest pain and Reports dyspnea Respiratory Respiratory: Reports cough, Reports dyspnea and Denies wheezing Gastrointestinal Gastrointestinal: Denies abdominal pain, Reports nausea and Reports vomiting Genitourinary Genitourinary: Denies dysuria Musculoskeletal Musculoskeletal: Reports back pain, Denies numbness and Denies tingling Integumentary/Breasts Skin/Breast: Denies rash Neurologic Neurologic: Denies headache(s), Denies numbness, Denies tingling and Reports weakness Endocrine Endocrine: Reports fatigue Allergic/Immunologic Allergic/Immunologic: Denies wheezing [facility] Medical History Abnormal CT of the chest (Acute 03/18/17) stable 2mm nodule in AILYN Annual Chest CT for lung cancer screening recommended Acute renal failure (Resolved 04/29/14) a. creatinine bumped from 0.8 to 2.9 b. h/o renal failure 06/2013, presented with creatinine 5.4, which normalized with IV fluids Acute right-sided low back pain without sciatica (Acute 06/08/17) Pain rad thru buttock, but not down leg. Priformis Syndr? [ ] PT [ ] Hx Pain Clinic (Injctn #1 helped, #2 did not). Occasional relief from SOMA. Trial GABAPENTIN 06/09/18.in past Anxiety and depression (Chronic) Bilateral pneumonia (Acute 04/29/14) A. Bilateral lower lobes Cirrhosis Cirrhosis of liver (Chronic) a. History of Hep C treatment. b. Liver biopsy 2005 positive for cirrhosis. 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 AFP levels every six months and ruq US every 12 months COPD (chronic obstructive pulmonary disease) (Chronic) Ongoing tobacco use. COPD (chronic obstructive pulmonary disease) (Chronic) Diabetes (Chronic) On Metformin. Diabetes mellitus DNI (do not intubate) (Acute) Essential hypertension (Chronic) Well maintained, meds tolerated. Hepatitis C HTN (hypertension) Hypertension (Chronic) Methadone dependence (Chronic) Neuropathy of right radial nerve (Chronic) a. recently had multiple falls and a hematoma around her humerus b. resolving Pleuritic chest pain (Acute 04/29/14) a. left sided POLST (Physician Orders for Life-Sustaining Treatment) (Acute) Polysubstance abuse (Chronic) a. h/o opiate overdose 06/2013 and 11/2013 b. recently started in [facility] program 03/13/2014 on oral methadone (missed her dose today) Shortness of breath (Acute) Spinal stenosis (Chronic) a. MRI 10/2009, showed L4-5 narrowing Tobacco abuse (Chronic) Tobacco use disorder Surgical History Appendectomy (01/30/07) H/O: hysterectomy (Chronic) History of ankle surgery (Acute) left S/P bilateral breast lumpectomy (Acute) Family History Mother Myocardial infarction Stroke Sister Diabetes Myocardial infarction Sister Diabetes Father Diabetes Alcohol abuse Myocardial infarction Social History Smoking/Tobacco Use Status: Current every day Tobacco Type: cigarettes Smoking packs per day: 1 Smoking cigarettes per day: 20.0 Years smoked: 40 Smoking pack-years: 40.00 Quit status: considering quitting Counseling given: other Details: pt feels motivated and states she doesnt enjoy them now Alcohol Intake: never Drug use: Current Sobriety Substance use type: heroin Details: on [facility] clinic Adopted: No Household members: none Housing: house Communication Needs: None Pets and animals: Yes Pets and animals: cat(s) What is your relationship status?: Panel score (0-1 are the most socially isolated patients): 0 What type of physical activity do you participate in: none Seatbelt use: always Drive 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 Working smoke detector in home: Yes Fire extinguisher in home: Yes Carbon monox detector in home: Yes Do you feel safe at home: Yes Do you feel safe in your relationship?: Yes Exam Const General: cooperative, in distress mild and frail appearing Orientation: alert, awake and oriented x3 HENMT Head: normal to inspection, normocephalic and atraumatic Ears: external ears normal, TM's normal bilaterally and EAC's normal Mouth: moist mucous membranes Throat: posterior oropharynx normal Eyes Conjunctivae: conjunctivae normal Neck Neck: normal visual inspection, full ROM, lymphadenopathy noted, meningismus present, trachea midline, supple and nontender Resp Effort & Inspection: able to speak in complete sentences, cough Quality of cough: dry and tachypneic Auscultation: diminished lung sounds bilaterally (Basis) and rhonchi (Bilateral bases) Cardio Rate: tachycardic (108) Rhythm: regular rhythm GI Inspection: normal to inspection Palpation: soft, not firm, no guarding, not rigid and nontender Auscultation: normal bowel sounds Back/Spine/Pelvis Back: no CVA tenderness and back tenderness (Diffuse thoracic region, worse in the right side) Skin General skin exam: no rashes or lesions noted Neuro General: patient alert, patient awake, patient oriented x3, moves all extremities and no focal motor deficits Speech: speech normal Motor: muscle tone normal throughout Sensory Exam: no sensory deficits noted Extrem General: normal to inspection, full ROM, capillary refill normal, no pedal edema and no calf tenderness Psych Appearance: grossly normal Mental Status: mental status grossly normal Course Vital Signs Vital signs: Vital Signs Pulse 97 H 10/28/19 07:47 Respiratory Rate 33 H 10/28/19 07:47 Blood Pressure 138/89 10/28/19 07:47 Pulse Oximetry 98 10/28/19 07:47 Temperature 36.8 C 10/28/19 07:49 Temperature Source Oral 10/28/19 07:49 Pulse 101 H 10/28/19 09:44 Pulse 99 H 10/28/19 09:50 Respiratory Rate 22 10/28/19 09:50 Respiratory Effort Non-Labored 10/28/19 09:09 Respiratory Depth Normal 10/28/19 09:09 Respiratory Pattern Normal 10/28/19 09:09 Blood Pressure 134/85 10/28/19 09:44 Blood Pressure Mean 96 10/28/19 09:44 Blood Pressure Position Sitting 10/28/19 07:49 Pulse Oximetry 100 10/28/19 09:50 Oxygen Delivery Method Room Air 10/28/19 07:49 Oxygen Flow Rate 0 10/28/19 07:49 Pain Level 8 10/28/19 09:53 Lab/Test Results Lab/Test Results: 10/28/19 10:04 Blood Blood Culture - Pending 10/28/19 10:04 Blood Blood Culture - Pending Laboratory Tests Range/Units 10/28/19 10/28/19 10/28/19 08:20 08:20 08:20 WBC (4.4-10.8) k/cumm 15.07 H RBC (4.00-5.20) m/cumm 5.71 H Hgb (12.0-15.5) g/dL 14.4 Hct (36.0-46.0) % 43.3 MCV (80-95) fL 75.8 L MCH (27.0-33.0) pg 25.2 L MCHC (32.0-36.0) g/dL 33.3 RDW (11.7-14.6) % 17.5 H Plt Count (130-400) x1000/uL 421 H MPV (8.0-11.0) fL 9.3 Immature Gran % % 0.3 Neutrophils % 82.6 Lymphocytes % 11.9 Monocytes % 4.0 Eosinophils % 0.9 Basophils % 0.3 Absolute Neutrophils (1.2-6.7) k/cumm 12.45 H Absolute Lymphocytes (1.2-3.4) k/cumm 1.79 Absolute Monocytes (0.11-0.7) k/cumm 0.60 Absolute Eosinophils (0.0-0.7) k/cumm 0.14 Absolute Basophils (0.0-0.2) k/cumm 0.05 PT (9.3-11.0) sec INR (0.9-1.1) APTT (21.0-31.4) sec D-Dimer (<500) ng/mlFEU Sodium (136-145) mmol/L 133 L Potassium (3.5-5.1) mmol/L 3.3 L Chloride (98-107) mmol/L 95 L Carbon Dioxide (21.0-32.0) mmol/L 28.8 Anion Gap (3-11) mmol/L 9.2 BUN (7-18) mg/dL 16 Creatinine (0.55-1.02) mg/dL 0.67 Estimated GFR/1.73 m2 (mL/min/1.73m2) >= 60.00 Glucose (74-106) mg/dL 130 H Calcium (8.5-10.1) mg/dL 9.6 Total Bilirubin (0.2-1.0) mg/dL 0.3 AST (15-37) U/L 20 ALT (14-59) U/L 22 Alkaline Phosphatase (46-116) U/L 125 H Troponin I (<0.06) ng/Ml < 0.05 Total Protein (6.4-8.2) g/dL 8.6 H Albumin (3.4-5.0) g/dL 3.6 Range/Units 10/28/19 10/28/19 08:20 08:27 WBC (4.4-10.8) k/cumm RBC (4.00-5.20) m/cumm Hgb (12.0-15.5) g/dL Hct (36.0-46.0) % MCV (80-95) fL MCH (27.0-33.0) pg MCHC (32.0-36.0) g/dL RDW (11.7-14.6) % Plt Count (130-400) x1000/uL MPV (8.0-11.0) fL Immature Gran % % Neutrophils % Lymphocytes % Monocytes % Eosinophils % Basophils % Absolute Neutrophils (1.2-6.7) k/cumm Absolute Lymphocytes (1.2-3.4) k/cumm Absolute Monocytes (0.11-0.7) k/cumm Absolute Eosinophils (0.0-0.7) k/cumm Absolute Basophils (0.0-0.2) k/cumm PT (9.3-11.0) sec 11.0 Cancelled INR (0.9-1.1) 1.1 Cancelled APTT (21.0-31.4) sec 26.1 D-Dimer (<500) ng/mlFEU 717 H Sodium (136-145) mmol/L Potassium (3.5-5.1) mmol/L Chloride (98-107) mmol/L Carbon Dioxide (21.0-32.0) mmol/L Anion Gap (3-11) mmol/L BUN (7-18) mg/dL Creatinine (0.55-1.02) mg/dL Estimated GFR/1.73 m2 (mL/min/1.73m2) Glucose (74-106) mg/dL Calcium (8.5-10.1) mg/dL Total Bilirubin (0.2-1.0) mg/dL AST (15-37) U/L ALT (14-59) U/L Alkaline Phosphatase (46-116) U/L Troponin I (<0.06) ng/Ml Total Protein (6.4-8.2) g/dL Albumin (3.4-5.0) g/dL
[2019-10-28] MEDS: cefTRIAXone 1 GM/50 ML BAG IVPB (11:12)
[2019-10-28] MEDS: AZITHROMYCIN 500 MG in Normal Saline 250 ML 250 MG IVPB (11:12)
--- NOTE | 2019-10-28 11:13 | NUR.NOTE ---
Nursing Note: COVID swab sent to lab at 11:00 am.
[2019-10-28 12:17] LABS: Troponin I < 0.05 ng/Ml (<0.06)
[2019-10-28] MEDS: Enoxaparin 40 MG/0.4 ML SYR SC (13:15)
[2019-10-28] MEDS: Gabapentin 300 MG CAP PO ×2 (13:15→20:25)
[2019-10-28] MEDS: hydrOXYzine PAMOATE 25 MG CAP 50 MG PO ×2 (13:15→18:33)
--- NOTE | 2019-10-28 13:21 | W.PM.HP.N ---
Date of service: 10/28/19 Time of Service: 13:21 Assessment and Plan Assessment and plan (1) Acute exacerbation of chronic obstructive pulmonary disease (COPD): Status: Acute Assessment and plan: Patient has ongoing wheezing and shortness of breath. She is not hypoxic. Her white count at 15,000 is actually lower than on previous encounters. She does not have a fever. The CT scan shows overall improvement in the infiltrates from 09/19/2019. She is being treated empirically for community-acquired pneumonia with ceftriaxone and azithromycin. Blood cultures are pending. Will start on Solu-Medrol and transition to p.o. prednisone when taking p.o. well. Continue usual inhalers. Avoid updrafts until COVID ruled out. (2) CAP (community acquired pneumonia): Status: Acute Assessment and plan: Ongoing infiltrates found on CT scan. These are not very impressive or consolidated. Given she does not have hypoxia, fever, limited leukocytosis I suspect that the infiltrates are not playing a major role. Will trend her white count, follow her clinical exam, await blood culture results. At this point it does not appear to be an acute bacterial infection that has precipitated her COPD exacerbation. She may have a viral illness. (3) Weight loss counseling, encounter for: Status: Acute Assessment and plan: Ongoing weight loss which I suspect is related to her minimal p.o. intake secondary to her ongoing dyspnea. Also worsening kyphoscoliosis. CT of chest today did not reveal any evidence of intrathoracic malignancy. (4) Continuous opioid dependence: Status: Acute Assessment and plan: Patient is on methadone maintenance through the ART program. She receives 2 weeks of therapy at a time. She self dispenses. She is quite adamant that she did not take this morning's dose because she did not feel well. She is now having nausea and malaise which may be related to acute opiate withdrawal symptoms. We will dose her methadone 75 mg x 1 today and daily. On discharge will inform the ART program of the inpatient doses that she received. (5) Diabetes mellitus: Status: Acute Assessment and plan: Diet-controlled diabetic. Her blood sugars are well controlled at this time. I suspect with the introduction of steroids they will climb. (6) Tobacco abuse: Status: Chronic Assessment and plan: Ongoing tobacco use. Apparently she can only smoke 2 cigarettes/day because of the pain it causes when she breathes in. Nicotine replacement is ordered. (7) Discharge planning issues: Status: Acute Assessment and plan: Patient is DNI per previous CO LST orders. She is admitted to observation status. History of Present Illness History of Present Illness Chief Complaint: COPD exacerbation/back pain Narrative: This is a 64-year-old woman with longstanding COPD, polysubstance abuse, opiate use disorder, severe kyphoscoliosis that presents to the emergency room with a complaint of shortness of breath and back pain. In the emergency room her room air O2 sat was 95%, she was afebrile. Her labs revealed a d-dimer of 717. A CT angiogram showed no evidence of a pulmonary embolus but did show bilateral pulmonary infiltrates, overall improved since a prior study 09/19/2019. The patient was complaining of 8 out of 10 back pain which was relieved with IV morphine. A few hours later she began having some episodes of vomiting. She had not taken her morning meds because of her shortness of breath and nausea. She did not take her methadone today. She denies any fever, change in sputum. She was feeling somewhat better after discharge from [facility] on 09/21/2019. She had telehealth check-in with Dr. Arellano on 10/24/2019. There was ongoing concern about her weight loss (45 pounds in the last 3 months). She was complaining of shortness of breath at that visit. Review of Systems Narrative: As per HPI patient has been having increased shortness of breath. She has not had fever or chills. No change in sputum color. She says she is being evaluated for oxygen at home. She is complaining of severe back pain particularly when she coughs or tries to take a big breath. She is very concerned about her ongoing weight loss which she is not trying to do. She has had some retching which also makes her back pain worse. She did not take her morning meds because she felt so lousy. [facility] Medical History Abnormal CT of the chest (Acute 03/18/17) stable 2mm nodule in AILYN Annual Chest CT for lung cancer screening recommended Acute renal failure (Resolved 04/29/14) a. creatinine bumped from 0.8 to 2.9 b. h/o renal failure 06/2013, presented with creatinine 5.4, which normalized with IV fluids Acute right-sided low back pain without sciatica (Acute 06/08/17) Pain rad thru buttock, but not down leg. Priformis Syndr? [ ] PT [ ] Hx Pain Clinic (Injctn #1 helped, #2 did not). Occasional relief from SOMA. Trial GABAPENTIN 06/09/18.in past Anxiety and depression (Chronic) Bilateral pneumonia (Acute 04/29/14) A. Bilateral lower lobes Cirrhosis Cirrhosis of liver (Chronic) a. History of Hep C treatment. b. Liver biopsy 2005 positive for cirrhosis. 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 AFP levels every six months and ruq US every 12 months COPD (chronic obstructive pulmonary disease) (Chronic) Ongoing tobacco use. COPD (chronic obstructive pulmonary disease) (Chronic) Diabetes (Chronic) On Metformin. Diabetes mellitus DNI (do not intubate) (Acute) Essential hypertension (Chronic) Well maintained, meds tolerated. Hepatitis C HTN (hypertension) Hypertension (Chronic) Methadone dependence (Chronic) Neuropathy of right radial nerve (Chronic) a. recently had multiple falls and a hematoma around her humerus b. resolving Pleuritic chest pain (Acute 04/29/14) a. left sided POLST (Physician Orders for Life-Sustaining Treatment) (Acute) Polysubstance abuse (Chronic) a. h/o opiate overdose 06/2013 and 11/2013 b. recently started in [facility] program 03/13/2014 on oral methadone (missed her dose today) Shortness of breath (Acute) Spinal stenosis (Chronic) a. MRI 10/2009, showed L4-5 narrowing Tobacco abuse (Chronic) Tobacco use disorder Surgical History Appendectomy (01/30/07) H/O: hysterectomy (Chronic) History of ankle surgery (Acute) left S/P bilateral breast lumpectomy (Acute) Family History Mother Myocardial infarction Stroke Sister Diabetes Myocardial infarction Sister Diabetes Father Diabetes Alcohol abuse Myocardial infarction Social History Smoking/Tobacco Use Status: Current every day Tobacco Type: cigarettes Smoking packs per day: 1 Smoking cigarettes per day: 20.0 Years smoked: 40 Smoking pack-years: 40.00 Quit status: considering quitting Counseling given: other Details: pt feels motivated and states she doesnt enjoy them now Alcohol Intake: never Drug use: Current Sobriety Substance use type: heroin Details: on [facility] clinic Adopted: No Household members: none Housing: house Communication Needs: None Pets and animals: Yes Pets and animals: cat(s) What is your relationship status?: Panel score (0-1 are the most socially isolated patients): 0 What type of physical activity do you participate in: none Seatbelt use: always Drive intox or ride w/intox 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 Working smoke detector in home: Yes Fire extinguisher in home: Yes Carbon monox detector in home: Yes Do you feel safe at home: Yes Do you feel safe in your relationship?: Yes Meds Home Medications and Allergies Home Medications Medication Instructions Recorded Confirmed Type polyethylene glycol 3350 [Miralax] 17 g PO DAILY PRN packet 07/30/13 10/28/19 History triamcinolone acetonide 1 lorraine TOPICAL TID PRN #30 gm 09/07/17 10/24/19 History ibuprofen 400 mg PO q8h PRN PAIN #200 tab-cap 12/21/17 10/28/19 Rx compressor, for nebulizer #1 each 09/28/18 10/24/19 Rx methadone 10 mg/mL oral concentrate 75 mg PO DAILY ml 09/28/18 10/28/19 History magnesium chloride [Mag 64] 128 mg PO BID #120 tab 10/04/18 10/28/19 Rx cholecalciferol (vitamin D3) 50 2,000 unit PO DAILY 01/24/19 10/28/19 History mcg (2,000 unit) capsule ipratropium 0.5 mg-albuterol 3 mg 3 ml UPD Q6H PRN PRN #90 ml 01/24/19 10/28/19 Rx (2.5 mg base)/3 mL nebulization soln lisinopril 10 mg tablet 10 mg PO DAILY #90 tab-cap 03/22/19 10/28/19 Rx aspirin 81 mg PO DAILY #30 tab 05/24/19 10/28/19 Rx albuterol sulfate 90 mcg/actuation 1 - 2 puff INHALATION Q6H PRN PRN 07/06/19 10/28/19 Rx aerosol inhaler #3 inhaler fluticasone furoate 200 1 inh IH DAILY #60 each 07/06/19 10/28/19 Rx mcg-vilanterol 25 mcg/dose inhalation powder mirtazapine 30 mg tablet 30 mg PO HS #30 tab-cap 07/26/19 10/28/19 Rx bupropion HCl 300 mg 24 hr tablet, 300 mg PO DAILY #90 tab 08/16/19 10/28/19 Rx extended release food supplemt, lactose-reduced See Rx Instructions PO BID #237 ml 08/19/19 10/28/19 Rx 0.04 gram-1.05 kcal/mL oral liquid furosemide 20 mg PO BID 09/19/19 10/28/19 History hydroxyzine pamoate 50 mg capsule 50 mg PO BID PRN #60 cap 09/22/19 10/28/19 Rx omeprazole 20 mg capsule,delayed 20 mg PO DAILY #14 cap 09/28/19 10/28/19 Rx release gabapentin 300 mg capsule 300 mg PO TID #90 cap 10/01/19 10/28/19 Rx spironolactone 25 mg tablet 50 mg PO BID #120 tab 10/16/19 10/28/19 Rx Allergies Allergy/AdvReac Type Severity Reaction Status Date / Time gabapentin AdvReac Severe Nausea Verified 10/28/19 07:55 metaxalone [Metaxalone] AdvReac Severe nausea Verified 10/28/19 07:55 diclofenac [Diclofenac] AdvReac Intermediate contraindicated Verified 10/28/19 07:55 w/ pt's liver promethazine AdvReac Mild disoriented Verified 10/28/19 07:55 prochlorperazine AdvReac Unknown disoriented Verified 10/28/19 07:55 Exam Narrative Exam Narrative: On exam she is cachectic appearing and in moderate distress. She has a severe kyphoscoliosis that has progressed since my last visit with her in 2013. She is lucid and able to communicate well. She had a mild cough and some episodes of retching when I visited with her. Her lung exam is notable for some inspiratory wheezing throughout both lung rich. No rales were detected. Her heart sounds are distant, no murmur appreciated. Her abdomen is overall soft and nontender. The lower extremities show no evidence of edema and no noted lesions. Neurologically she moves upper and lower extremities well. Results Labs Result diagrams: 10/28/19 08:20 10/28/19 08:20 Labs: Laboratory Results - last 24 hr 10/28/19 10/28/19 10/28/19 08:20 08:20 08:20 WBC 15.07 H RBC 5.71 H Hgb 14.4 Hct 43.3 MCV 75.8 L MCH 25.2 L MCHC 33.3 RDW 17.5 H Plt Count 421 H MPV 9.3 Immature Gran % 0.3 Neutrophils % 82.6 Lymphocytes % 11.9 Monocytes % 4.0 Eosinophils % 0.9 Basophils % 0.3 Absolute Neutrophils 12.45 H Absolute Lymphocytes 1.79 Absolute Monocytes 0.60 Absolute Eosinophils 0.14 Absolute Basophils 0.05 PT INR APTT D-Dimer Sodium 133 L Potassium 3.3 L Chloride 95 L Carbon Dioxide 28.8 Anion Gap 9.2 BUN 16 Creatinine 0.67 Estimated GFR/1.73 m2 >= 60.00 Glucose 130 H Calcium 9.6 Total Bilirubin 0.3 AST 20 ALT 22 Alkaline Phosphatase 125 H Troponin I < 0.05 Total Protein 8.6 H Albumin 3.6 10/28/19 10/28/19 10/28/19 08:20 08:27 11:05 WBC RBC Hgb Hct MCV MCH MCHC RDW Plt Count MPV Immature Gran % Neutrophils % Lymphocytes % Monocytes % Eosinophils % Basophils % Absolute Neutrophils Absolute Lymphocytes Absolute Monocytes Absolute Eosinophils Absolute Basophils PT 11.0 Cancelled INR 1.1 Cancelled APTT 26.1 D-Dimer 717 H Sodium Potassium Chloride Carbon Dioxide Anion Gap BUN Creatinine Estimated GFR/1.73 m2 Glucose Calcium Total Bilirubin AST ALT Alkaline Phosphatase Troponin I < 0.05 Total Protein Albumin Last Vital Signs Temp 36.2 C L 10/28/19 12:13 Pulse 95 H 10/28/19 12:13 Resp 20 10/28/19 12:13 BP 126/67 10/28/19 12:13 Pulse Ox 99 10/28/19 12:13 COVID-19 Screening In the past 14 days, have you traveled outside of [place] or [place]?: NO Recent travel in the [facility] within the last 14 days?: No Recent out of the country travel within the last 14 days?: No Exposure or possible exposure to illness during travel?: No Had IN PERSON contact w/suspected or confirmed C-19 person: No Have you had the following symptoms in the past few days?: Yes Symptoms noted since travel?: Lower Respiratory
[2019-10-28] MEDS: Methadone Liquid 10 MG/ML 75 MG PO (13:28)
[2019-10-28] MEDS: POTASSIUM CHLORIDE 20 MEQ, POTASSIUM CHLORIDE 10 MEQ 30 MEQ PO (14:31)
[2019-10-28] MEDS: methylPREDNISolone SUCC 40 MG VIAL IVP ×2 (14:31→21:18)
[2019-10-28] MEDS: Normal Saline Flush 10 ML SYR IVP ×4 (14:32→22:29)
[2019-10-28] MEDS: Nicotine 14 MG/24 HR PATCH TD (15:15)
[2019-10-28] MEDS: Furosemide 20 MG TAB PO (15:37)
[2019-10-28] MEDS: Metoclopramide 10 MG/2 ML VIAL IVP (16:58)
[2019-10-28] MEDS: MORPHine 2 MG/ML SYR IVP ×3 (18:14→23:30)
[2019-10-28] MEDS: POTASSIUM CHLORIDE/D5-0.45NACL 1,000 ML 100 MEQ IV (18:35)
[2019-10-28] MEDS: Budesonide/Formoterol 160/4.5 6 GM 60 PUFF INH IH (20:25)
[2019-10-28] MEDS: Spironolactone 50 MG TAB PO (20:25)
[2019-10-28] MEDS: Mirtazapine 15 MG TAB 30 MG PO (21:18)
[2019-10-28] MEDS: Magnesium Chloride 64 MG TABCR 128 MG PO (21:18)
[2019-10-29] VITALS (7 sets, daily range): BP systolic 94–138; BP diastolic 60–84; PULSE 76–103; RESP 16–20; TEMP 36–37.2; O2SAT 92–96
--- NOTE | 2019-10-29 | DI.CT_ITS ---
EXAM: CT ABDOMEN PELVIS W CLINICAL HISTORY: abdominal pain, vomiting, weight loss TECHNIQUE: Imaging Protocol: Axial computed tomography images with coronal and sagittal reformatted images were created and reviewed CONTRAST MATERIAL: Intravenous: Omnipaque 350 Contrast volume:70 mL Oral: Yes COMPARISON: CT ABD PELVIS WITH CONTRAST from 09/05/[address] CHEST PE CTA from 10/28/2019 FINDINGS: ABDOMEN: Lung Bases: Stable interstitial changes are seen in the lung bases. This may be a combination of bot h acute and chronic pulmonary change. Liver: Normal density. No measurable mass. Portal, Superior Mesenteric, and Splenic Veins: Unremarkable. Gallbladder and Biliary Tract: No radiodense calculus or dilation. Pancreas: Normal density, no abnormal calcifications or inflammatory process. Spleen: Normal. Adrenals: No masses seen. Kidneys: Normal size, contour and axis. No radiodense stones or obstructive uropathy. No masses seen. Abdominal Aorta: Abdominal portion non-dilated. Atherosclerosis. Bowel: No obstruction or bowel wall thickening. No evidence of acute appendicitis. Peritoneal Cavity: No ascites, collection or mesenteric inflammatory response. Lymph Nodes: Within normal limits. Bones: There is a marked right convex scoliotic curvature of the thoracolumbar spine. Multilevel deg enerative changes are seen throughout the lumbar spine. Soft Tissues: Unremarkable. PELVIS: Bladder: Symmetric distention, no gross wall thickening. Reproductive Organs: Unremarkable as visualized. Patient appears to be status post hysterectomy. Lymph Nodes: Within normal limits. Bones: Multilevel degenerative changes are present. IMPRESSION: 1. No acute abdominal pelvic process. 2. No evidence of an abdominal or pelvic mass or adenopathy. 3. Atherosclerosis. 4. Marked right convex scoliosis. Multilevel degenerative changes in the spine. RADIATION DOSE DELIVERED: Total DLP DATA REPOSITORY: All CT scans at this facility are submitted to the National Radiology Data Registry (NRDR) Dose Index Registry (DIR) with the [employer] (ACR). RADIATION OPTIMIZATION: All CT scans at this facility use at least one of these dose optimization te chniques: automated exposure control; mA and/or kV adjustment per patient size (includes targeted exa ms where dose is matched to clinical indication); or iterative reconstruction.
[2019-10-29] MEDS: Normal Saline Flush 10 ML SYR IVP ×5 (01:06→09:45)
[2019-10-29] MEDS: Pantoprazole 40 MG VIAL IVP ×2 (01:06→08:39)
[2019-10-29 01:24] LABS: HCT 43.3 % (36.0-46.0); HGB 14.6 g/dL (12.0-15.5)
[2019-10-29 01:45] LABS: ETHANOL BLOOD < 3.0 mg/dL (<3)
[2019-10-29] MEDS: MORPHine 2 MG/ML SYR 4 MG IVP ×3 (01:57→06:14)
--- NOTE | 2019-10-29 02:06 | NUR.NOTE ---
Nursing Note: Beginning of the shift , Lung sounds with I/E wheezy throughout. Complained of back pain, Medicated and no relief, continuously verbalized of abdominal and radiates to back. Nicotine patch applied on left shoulder. Pt vomitted x 6 with liquidy yellow - light eli emesis until 2000 hrs.. consulted by operations general agent and ordered IVFluid of D5.45 NS w/ 20 KCl at 100 cc. Administered Vistaril and with some relief, pt able to slept for few mins. Whe pt woke up , she vomitted coffee ground around 150cc. gastroccult performed and w/ positive result of blood for second time. Zofran given. Assisted to bathroom but unable to void. Bladder scan performed, obtained a result of 325 cc. Pt was seen by , morphine increased to 4 mg. and IVFluids discontinued. Blood drawn done. Lung sounds w/ friction rub, gargling sounds noticed throughout. Pending UDS collection . No order for straight cath yet. Awaiting to void. Continue to monitor.
[2019-10-29] MEDS: methylPREDNISolone SUCC 40 MG VIAL IVP ×2 (06:15→14:22)
[2019-10-29 06:27] LABS: Abs Immature Grans 0.06 k/cumm (0.0-0.09); Absolute Monocyte Count 0.92 k/cumm (0.11-0.7); Basophils % 0.1; HCT 43.9 % (36.0-46.0); HGB 14.7 g/dL (12.0-15.5); Immature Grans % 0.3 %; Lymphocytes % 12.2; Mean Corp. HGB Concentration 33.5 g/dL (32.0-36.0); Mean Corpuscular Hemoglobin 25.3 pg (27.0-33.0); Mean Corpuscular Volume 75.4 fL (80-95); Mean Platelet Volume 9.5 fL (8.0-11.0); Monocytes % 5.2; Neutrophils % 82.2; Platelet Count 478 x1000/uL (130-400); RBC 5.82 m/cumm (4.00-5.20); RBC Distribution Width 17.8 % (11.7-14.6); White Blood Cell Count 17.72 k/cumm (4.4-10.8)
[2019-10-29 06:31] LABS: Absolute Basophil Count 0.02 k/cumm (0.0-0.2); Absolute Lymphocyte Count 2.16 k/cumm (1.2-3.4); Absolute Neutrophil Count 14.57 k/cumm (1.2-6.7)
[2019-10-29 06:59] LABS: ALT 20 U/L (14-59); AST 22 U/L (15-37); Albumin 3.6 g/dL (3.4-5.0); Alkaline Phosphatase 121 U/L (46-116); Anion Gap 8.3 mmol/L (3-11); BUN 29 mg/dL (7-18); Bilirubin, Total 0.4 mg/dL (0.2-1.0); CO2 32.7 mmol/L (21.0-32.0); CREATININE 0.72 mg/dL (0.55-1.02); Calcium 9.7 mg/dL (8.5-10.1); Chloride 91 mmol/L (98-107); Glucose 120 mg/dL (74-106); Potassium 4.1 mmol/L (3.5-5.1); Sodium 132 mmol/L (136-145); Total Protein 8.6 g/dL (6.4-8.2)
[2019-10-29 07:07] LABS: Lipase 108 U/L (73-393); Magnesium 2.2 mg/dL (1.8-2.4); NT-proBNP 272 pg/mL (<300)
[2019-10-29 07:08] LABS: COVID-19 RT-PCR UVMMC Result Negative (Negative)
--- NOTE | 2019-10-29 07:15 | W.PM.PROGNOT ---
Date of Service Date of service: 10/29/19 Time of Service: 01:48 Assessment and Plan Assessment and plan (1) Abdominal pain: Status: Acute Assessment and plan: Severe abdominal pain a/w vomiting, now heme positive. Hemodynamically stable, so not c/w massive blood loss. No stool since admission. H/H stable on stat repeat. I added lipase and repeat LFTs to am labs, were normal last month. Interesting, CT done in September listed as chest/abd/pelvis, but only chest on images and report. With pain and weight loss, should scan A/P. H/o GERD, EtOH negative. I increased the PPI to high dose for now. Should discuss non-emergent endoscopy with weight loss. No ascites or fever to suggest SBP. Pattern not c/w biliary cholic, had negative u/s in September I do have some concern for this being a manifestation of opioid withdrawl. She did get her methadone, but conceivably she could have been using more as an outpatient, but this doesn't make complete sense either. Will continue higher dose PRN morphine given opioid tolerance. (2) Cirrhosis of liver: Status: Chronic Assessment and plan: Per remote biopsy. Secondary to HCV which was treated. Labs and clinical picture consistent with compensated CTP class A cirrhosis. Signs of cirrhosis not reported on CT chest though the liver and spleen are included in imaging. Cirrhosis does possibly put her at risk for variceal bleeding as well as liver cancer. Plan CT abdomen as above. Qualifiers: Hepatic cirrhosis type: other cirrhosis Qualified Code(s): K74.69 - Other cirrhosis of liver (3) Fluid overload: Status: Acute Assessment and plan: Lungs do sound wet, imaging concerning for pulmonary edema, but the rest of the exam isn't consistent with fluid overload. This could be pulmonary edema from infection or inhaling/snorting, but she denies street drugs and COVID negative. Oxygenation and respiratory effort stable. Normal EF on echocardiogram recently. Subjective Subjective Patient reports: denies blood in stool and fever Interval history since last seen: Called by RN initially for vomiting 10/27 evening. Made NPO, started D5 1/2NS + 20KCl at 100 ml/hr, ondansatron prn. Called again at 12:40 am, patient looked increasingly uncomfortable, c/o 9-10/10 diffuse abdominal pain, lung sounds wet, emesis changed to coffee grounds, heme positive Per patient she has has abdominal pain and nausea/vomiting over the past several months, 45lb weight loss. She states the pain is worse tonight, though much better after 4mg morphine (increase from 2mg). She denies any change in medication including methadone dose. She denies any street drug use or alcohol. She had a normal BM this morning. Minimal cough, some SOB, no chest pain. Exam Narrative Exam Narrative: GEN: Alert and oriented, kyphotic and cachectic. Not in acute distress, speaking in full sentances. not diaphoretic HEENT: Atraumatic. MMM, no icterus. No JVD. CV: RRR, no M/G/R Resp: Inspiratory gurgling rales throughout lung field. No wheezes. no accessory muscle use. ABD: +normal active BS. Diffusely tender. Mildly firm with exam, no discreet masses or ascites. Ext: no c/d/e, not tender skin: no jaundice/bruising Objective Objective Clinical Data: Abnormal lab results 10/28/19 10/28/19 10/28/19 Range/Units 08:20 08:20 08:20 WBC 15.07 H (4.4-10.8) k/cumm RBC 5.71 H (4.00-5.20) m/cumm MCV 75.8 L (80-95) fL MCH 25.2 L (27.0-33.0) pg RDW 17.5 H (11.7-14.6) % Plt Count 421 H (130-400) x1000/uL Absolute Neutrophils 12.45 H (1.2-6.7) k/cumm Absolute Monocytes (0.11-0.7) k/cumm D-Dimer 717 H (<500) ng/mlFEU Sodium 133 L (136-145) mmol/L Potassium 3.3 L (3.5-5.1) mmol/L Chloride 95 L (98-107) mmol/L Carbon Dioxide (21.0-32.0) mmol/L BUN (7-18) mg/dL Glucose 130 H (74-106) mg/dL Hemoglobin A1c (3.8-5.6) % Alkaline Phosphatase 125 H (46-116) U/L Total Protein 8.6 H (6.4-8.2) g/dL 10/29/19 10/29/19 10/29/19 Range/Units 06:15 06:15 06:15 WBC 17.72 H (4.4-10.8) k/cumm RBC 5.82 H (4.00-5.20) m/cumm MCV 75.4 L (80-95) fL MCH 25.3 L (27.0-33.0) pg RDW 17.8 H (11.7-14.6) % Plt Count 478 H (130-400) x1000/uL Absolute Neutrophils 14.57 H (1.2-6.7) k/cumm Absolute Monocytes 0.92 H (0.11-0.7) k/cumm D-Dimer (<500) ng/mlFEU Sodium 132 L (136-145) mmol/L Potassium (3.5-5.1) mmol/L Chloride 91 L (98-107) mmol/L Carbon Dioxide 32.7 H (21.0-32.0) mmol/L BUN 29 H D (7-18) mg/dL Glucose 120 H (74-106) mg/dL Hemoglobin A1c 6.0 H (3.8-5.6) % Alkaline Phosphatase 121 H (46-116) U/L Total Protein 8.6 H (6.4-8.2) g/dL Vital Signs Temperature 37.2 C 10/29/19 03:28 Temperature Source Temporal Artery Scan 10/29/19 03:28 Pulse 101 H 10/29/19 03:28 Pulse Rhythm Regular 10/28/19 23:58 Pulse 101 H 10/28/19 11:31 Respiratory Rate 16 10/29/19 03:28 Respiratory Effort 10/28/19 23:58 Respiratory Depth Shallow 10/28/19 23:58 Respiratory Pattern Normal 10/28/19 23:58 Blood Pressure 128/83 10/29/19 03:28 Blood Pressure Mean 104 10/28/19 11:31 Blood Pressure Position Sitting 10/28/19 07:49 Pulse Oximetry 95 10/29/19 03:28 Oxygen Delivery Method Room Air 10/29/19 03:28 Oxygen Flow Rate 0 10/29/19 03:28 Pain Level 5 10/29/19 05:06 Intake & Output 10/28/19 10/28/19 10/29/19 11:59 23:59 11:59 Intake Total 3050 / 3050 0 / 0 Output Total 1200 / 1200 Balance 1850 / 1850 0 / 0 Weight 36.741 kg 36.741 kg 34.7 kg Intake: IV 300 / 300 Oral 2750 / 2750 0 / 0 Output: Urine 250 / 250 Emesis 950 / 950 Other: Urine Color Yellow Urine Appearance Clear Urine Odor None Comment pt missed hat and voided in toilet. unable to get UDS. bladder scanned pvr for 128, 123 and 18. for an avg of 89.6 or 90cc rounded. Emesis Description Coffee Grounds Gastric Occult Blood Positive Voiding Methods Toilet Toilet Laboratory Results WBC 17.72 k/cumm (4.4-10.8) H 10/29/19 06:15 RBC 5.82 m/cumm (4.00-5.20) H 10/29/19 06:15 Hgb 14.7 g/dL (12.0-15.5) 10/29/19 06:15 Hct 43.9 % (36.0-46.0) 10/29/19 06:15 MCV 75.4 fL (80-95) L 10/29/19 06:15 MCH 25.3 pg (27.0-33.0) L 10/29/19 06:15 MCHC 33.5 g/dL (32.0-36.0) 10/29/19 06:15 RDW 17.8 % (11.7-14.6) H 10/29/19 06:15 Plt Count 478 x1000/uL (130-400) H 10/29/19 06:15 MPV 9.5 fL (8.0-11.0) 10/29/19 06:15 Immature Gran % 0.3 % 10/29/19 06:15 Neutrophils % 82.2 10/29/19 06:15 Lymphocytes % 12.2 10/29/19 06:15 Monocytes % 5.2 10/29/19 06:15 Eosinophils % 0.0 10/29/19 06:15 Basophils % 0.1 10/29/19 06:15 Absolute Neutrophils 14.57 k/cumm (1.2-6.7) H 10/29/19 06:15 Absolute Lymphocytes 2.16 k/cumm (1.2-3.4) 10/29/19 06:15 Absolute Monocytes 0.92 k/cumm (0.11-0.7) H 10/29/19 06:15 Absolute Eosinophils 0.00 k/cumm (0.0-0.7) 10/29/19 06:15 Absolute Basophils 0.02 k/cumm (0.0-0.2) 10/29/19 06:15 PT Cancelled 10/28/19 08:27 INR Cancelled 10/28/19 08:27 APTT 26.1 sec (21.0-31.4) 10/28/19 08:20 D-Dimer 717 ng/mlFEU (<500) H 10/28/19 08:20 Sodium 132 mmol/L (136-145) L 10/29/19 06:15 Potassium 4.1 mmol/L (3.5-5.1) D 10/29/19 06:15 Chloride 91 mmol/L (98-107) L 10/29/19 06:15 Carbon Dioxide 32.7 mmol/L (21.0-32.0) H 10/29/19 06:15 Anion Gap 8.3 mmol/L (3-11) 10/29/19 06:15 BUN 29 mg/dL (7-18) H D 10/29/19 06:15 Creatinine 0.72 mg/dL (0.55-1.02) 10/29/19 06:15 Estimated GFR/1.73 m2 >= 60.00 (mL/min/1.73m2) 10/29/19 06:15 Glucose 120 mg/dL (74-106) H 10/29/19 06:15 Hemoglobin A1c 6.0 % (3.8-5.6) H 10/29/19 06:15 Calcium 9.7 mg/dL (8.5-10.1) 10/29/19 06:15 Magnesium 2.2 mg/dL (1.8-2.4) 10/29/19 06:15 Total Bilirubin 0.4 mg/dL (0.2-1.0) 10/29/19 06:15 AST 22 U/L (15-37) 10/29/19 06:15 ALT 20 U/L (14-59) 10/29/19 06:15 Alkaline Phosphatase 121 U/L (46-116) H 10/29/19 06:15 Troponin I < 0.05 ng/Ml (<0.06) 10/28/19 11:05 NT-Pro-B Natriuret Pep 272 pg/mL (<300) 10/29/19 06:15 Total Protein 8.6 g/dL (6.4-8.2) H 10/29/19 06:15 Albumin 3.6 g/dL (3.4-5.0) 10/29/19 06:15 Lipase 108 U/L (73-393) 10/29/19 06:15 Ethyl Alcohol < 3.0 mg/dL (<3) 10/29/19 01:10 COVID-19 PCR Negative (Negative) 10/28/19 10:52 Nasopharyn COVID-19 PCR Not Applicable 10/28/19 10:52 Ref Test Perform Site [facility] hospital lab 10/28/19 10:52
[2019-10-29] MEDS: Methadone Liquid 10 MG/ML 75 MG PO (07:28)
[2019-10-29] MEDS: Budesonide/Formoterol 160/4.5 6 GM 60 PUFF INH IH ×2 (07:39→19:50)
[2019-10-29] MEDS: Spironolactone 50 MG TAB PO ×2 (08:40→19:50)
[2019-10-29] MEDS: Furosemide 20 MG TAB PO ×2 (08:40→15:29)
--- NOTE | 2019-10-29 08:49 | PDOC.CMIN ---
- If Service Date Differs Date of service: 10/29/19 Time of Service: 08:49 Care Management Initial Assess REASON FOR HOSPITALIZATION:: Acute exacerbation of COPD PAST MEDICAL HISTORY/PAST SURGICAL HISTORY:: Medical History . Abnormal CT of the chest (Acute 03/18/17). stable 2mm nodule in AILYN. Annual Chest CT for lung cancer screening recommended. Acute renal failure (Resolved 04/29/14). a. creatinine bumped from 0.8 to 2.9. b. h/o renal failure 06/2013, presented with creatinine 5.4, which normalized with IV fluids. Acute right-sided low back pain without sciatica (Acute 06/08/17). Pain rad thru buttock, but not down leg. Priformis Syndr? [ ] PT [ ] Hx Pain Clinic (Injctn #1 helped, #2 did not). Occasional relief from SOMA. Trial GABAPENTIN 06/09/18.in past. Anxiety and depression (Chronic). Bilateral pneumonia (Acute 04/29/14). A. Bilateral lower lobes. Cirrhosis. Cirrhosis of liver (Chronic). a. History of Hep C treatment. b. Liver biopsy 2005 positive for cirrhosis. 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 a. AFP levels every six months and ruq US every 12 months. COPD (chronic obstructive pulmonary disease) (Chronic). Ongoing tobacco use. COPD (chronic obstructive pulmonary disease) (Chronic). Diabetes (Chronic). On Metformin. Diabetes mellitus. DNI (do not intubate) (Acute). Essential hypertension (Chronic). Well maintained, meds tolerated. Hepatitis C. HTN (hypertension). Hypertension (Chronic). Methadone dependence (Chronic). Neuropathy of right radial nerve (Chronic). a. recently had multiple falls and a hematoma around her humerus. b. resolving. Pleuritic chest pain (Acute 04/29/14). a. left sided. POLST (Physician Orders for Life-Sustaining Treatment) (Acute). Polysubstance abuse (Chronic). a. h/o opiate overdose 06/2013 and 11/2013. b. recently started in [facility] program 03/13/2014 on oral methadone (missed her dose today). Shortness of breath (Acute). Spinal stenosis (Chronic). a. MRI 10/2009, showed L4-5 narrowing. Tobacco abuse (Chronic). Tobacco use disorder. Surgical History . Appendectomy (01/30/07). H/O: hysterectomy (Chronic). History of ankle surgery (Acute). left. S/P bilateral breast lumpectomy (Acute). Family History . Mother . Myocardial infarction. Stroke. Sister. Diabetes. Myocardial infarction. Sister. Diabetes. Father . Diabetes. Alcohol abuse. Myocardial infarction PREVIOUS FUNCTIONAL STATUS/SOCIAL/FAMILY SUPPORTS:: Kira lives alone in a mobile home in [facility]. She uses [employer] for transportation and has many community supports which include Meals on Wheels, [employer] [place], fuel assistance and [employer]. She has also recently received a eloy from [employer] for improvements to her home.Kira is independent at baseline. She attends a woman's support group at [facility] on and has several close friends who are very supportive. CURRENT FUNCTIONAL STATUS:: Kira was sitting up i8n bed when CM met with her. She shared her concerns about the amount of weight she has lost in the past few months. She stated that a year ago she weighed 125 lbs and today she weighed 76 lbs. She asserts that she is not deliberately trying to lose weight but that she is often not hungry and living alone, it is easy to skip meals. A discussion ensued regarding some simple recipes and supplements to increase her caloric intake. She will meet with the weigher alloy again tomorrow. Kira did state that she is feeling better today than yesterday and was actually hungry. ADVANCE DIRECTIVES:: None on file Has patient been provided with information about the portal?: Yes Did the patient sign up for the portal?: No CODE STATUS:: DNI INSURANCE COVERAGE / FINANCIAL ISSUES:: Medicare. Medicaid CURRENT HOME/COMMUNITY SERVICES/EQUIPMENT:: Meals on Wheels, [facility], [employer], [place] on Aging, [facility]. PRIMARY CARE PHYSICIAN:: Kirsten Friedman POTENTIAL DISCHARGE NEEDS:: Follow up with PCP and discharge plan of care PATIENT/FAMILY EDUCATION NEEDS:: Discharge plan, limitations, follow up plan, Ask Me Three TRANSPORTATION:: via private vehicle with a friend PLAN:: Kira will likely return home when medically ready with a resumption of services. Kira would like assistance with buying Ensure Plus, if possible. CM will explore options and support Kira with this endeavor. Kira will follow up with her PCP and discharge plan of care. CM will continue to support Kira and her discharge planning needs.
--- NOTE | 2019-10-29 08:57 | PT.INIE ---
Date of service: 10/29/19 Time of Service: 08:57 PT Notes Visit Reasons: B/L PNEUMONIA/COPD EXACERBATION Physical Therapy Inpatient Initial Evaluation Date: 10/29/2019 Referring Doctor: Vincenzo Michaud MD PT Orders: PT CONSULT: Limited ability Precautions: Fall. Standard. Activity as tolerated. Patient Profile/Admitting Diagnosis: Patient is a 64-year-old female who presented to the ED via EMS on 10/28/2019 with chief complaints of shortness of breath, back pain, and nausea. Patient is diagnosed with COPD exacerbation, community-acquired pneumonia, and diabetes mellitus. On 10/29/2019 patient had an additional diagnosis of abdominal pain and fluid overload. Patient tested negative for COVID-19 as of 10/29/2019. PMHX: Medical History Abnormal CT of the chest (Acute 03/18/17) stable 2mm nodule in AILYN Annual Chest CT for lung cancer screening recommended Acute renal failure (Resolved 04/29/14) a. creatinine bumped from 0.8 to 2.9 b. h/o renal failure 06/2013, presented with creatinine 5.4, which normalized with IV fluids Acute right-sided low back pain without sciatica (Acute 06/08/17) Pain rad thru buttock, but not down leg. Priformis Syndr? [ ] PT [ ] Hx Pain Clinic (Injctn #1 helped, #2 did not). Occasional relief from SOMA. Trial GABAPENTIN .in past Anxiety and depression (Chronic) Bilateral pneumonia (Acute 04/29/14) A. Bilateral lower lobes Cirrhosis Cirrhosis of liver (Chronic) a. History of Hep C treatment. b. Liver biopsy 2005 positive for cirrhosis. 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 AFP levels every six months and ruq US every 12 months COPD (chronic obstructive pulmonary disease) (Chronic) Ongoing tobacco use. COPD (chronic obstructive pulmonary disease) (Chronic) Diabetes (Chronic) On Metformin. Diabetes mellitus DNI (do not intubate) (Acute) Essential hypertension (Chronic) Well maintained, meds tolerated. Hepatitis C HTN (hypertension) Hypertension (Chronic) Methadone dependence (Chronic) Neuropathy of right radial nerve (Chronic) a. recently had multiple falls and a hematoma around her humerus b. resolving Pleuritic chest pain (Acute 04/29/14) a. left sided POLST (Physician Orders for Life-Sustaining Treatment) (Acute) Polysubstance abuse (Chronic) a. h/o opiate overdose 06/2013 and 11/2013 b. recently started in [facility] program 03/13/2014 on oral methadone (missed her dose today) Shortness of breath (Acute) Spinal stenosis (Chronic) a. MRI 10/2009, showed L4-5 narrowing Tobacco abuse (Chronic) Tobacco use disorder Surgical History Appendectomy (01/30/07) H/O: hysterectomy (Chronic) History of ankle surgery (Acute) left S/P bilateral breast lumpectomy (Acute) Social History/Home Situation: Patient lives alone in a mobile home with 4 steps to enter. She states one rail was broken but then she is got a eloy from [facility] to do some repairs in her house as well as her water piping system. She uses a single-point cane for outdoor ambulation at baseline. She gets Meals on Wheels. She has a friend who is able to help with her transportation for grocery shopping and doctor's appointments. Equipment Owned/DME: Single-point cane Subjective: Patient reports that she is feeling a little better compared to how she did yesterday. She denies any back pain but does report abdominal pain at 5-6/10. She has abdominal testing coming up in a little bit. She states that she has fallen twice in the past 12 months but did not get serious injuries from them. She reports that she gets out of breath easily but then if she slows down she is able to manage okay. Objective: General Observation: Electric heating pad over abdominal area. Asthenic. Thoracic kyphosis. Minimally out of breath with level surface ambulation. Mental Status: Alert and oriented x4 Pain: 5/10 abdominal pain at rest and with movement ROM: Right Upper Extremity: Shoulder Flexion allows up to 90 degrees. Shoulder abduction allows up to 90 degrees. Elbow flexion WFL. Wrist flexion WFL. Opening and closing of hand WFL. Left Upper Extremity: Shoulder Flexion allows up to 90 degrees. Shoulder abduction allows up to 90 degrees. Elbow flexion WFL. Wrist flexion WFL. Opening and closing of hand WFL. Right Lower Extremity: Hip flexion WFL. Hip abduction WFL. Knee flexion WFL. Ankle dorsiflexion WFL. Ankle plantarflexion WFL. Left Lower Extremity: Hip flexion WFL. Hip abduction WFL. Knee flexion WFL. Ankle dorsiflexion WFL. Ankle plantarflexion WFL. Strength: Right Upper Extremity: Shoulder flexors 3-/5. Shoulder abductors 3-/5. Elbow flexors 3+/5. Elbow extensors 3+/5. Valuation Consultant strong. Left Upper Extremity: Shoulder flexors 3-/5. Shoulder abductors 3-/5. Elbow flexors 3+/5. Elbow extensors 3+/5. Valuation Consultant strong. Right Lower Extremity: Hip flexors 4-/5. Hip abductors 4-/5. Knee flexors 4-/5. Knee extensors 3+/5. Ankle dorsiflexors 4-/5. Ankle plantarflexors 4-/5. Left Lower Extremity: Hip flexors 4-/5. Hip abductors 4-/5. Knee flexors 4-/5. Knee extensors 3+/5. Ankle dorsiflexors 4-/5. Ankle plantarflexors 4-/5. Sensation: Intact as to pain and pressure on bilateral lower extremities. Bed Mobility/Transfers: Rolling minimal assist Supine to sit minimal assist using BUE for support with HOB 45 degrees Sit to supine minimal assist using BUE for support with HOB 45 degrees Sit to stand contact-guard assist with minimal verbal cueing for correct hand placement, feels more stable using a front wheel walker Stand to sit contact-guard assist with minimal verbal cueing for correct hand placement, feels more stable using a front wheel walker Bed to chair contact-guard assist with minimal verbal cueing for correct hand placement, feels more stable using a front wheel walker Chair to bed contact-guard assist with minimal verbal cueing for correct hand placement, feels more stable using a front wheel walker Gait: Patient was able to tolerate level surface ambulation of 40 feet using front wheeled walker with contact-guard assist and wheelchair follow with PT. Decreased david. Decreased step length and step height. Minimal breathlessness observed at the end of activity with patient reporting her legs becoming weak requesting to sit down on wheelchair. Patient was able to walk back to her room same distance after short rest time. Balance: Static Sitting: Normal Dynamic Sitting: Normal Static Standing: Fair Dynamic Standing: Fair Special Tests: Mobility Limitations Standardized Measure [facility] AM-PAC 6 clicks Basic Mobility Inpatient Short Form: Raw Score: 17 CMS Score: 50.57% deficit Informed Consent/Education: Patient instructed in purpose of PT consult and plan of care. Assessment: Patient demonstrates generalized weakness, need for assistive device for mobility ADL performance, unsteadiness on feet, and difficulty with walking which increased risk for falls. She will require skilled physical therapy services in order to achieve goals established below. Patient is a 64-year-old female who presented to the ED via EMS on 10/28/2019 with chief complaints of shortness of breath, back pain, and nausea. Patient is diagnosed with COPD exacerbation, community-acquired pneumonia, and diabetes mellitus. On 10/29/2019 patient had an additional diagnosis of abdominal pain and fluid overload. Patient tested negative for COVID-19 as of 10/29/2019. Patient presents with clinical signs and symptoms consistent with current/admitting diagnoses that have resulted to mobility limitations, gait instability, generalized weakness, and impairment of motor control as demonstrated by the following impairment level findings: 1. Decreased strength to B UE/LE major muscle groups 2. Impaired standing balance 3. Impaired activity tolerance 4. Limitation of joint range of motion in bilateral shoulders Impairments are contributing to the following functional limitations: 1. Dependent bed mobility skills 2. Increased dependence with transfers 3. Inability to safely ambulate without assistive device and physical assistance 4. Increase completion time for mobility ADL performance 5. Increased fall risk 6. Inability to negotiate steps alone safely Patient is assessed as a 56411 moderate complexity based on the following: History: 64-year-old female with impairment level findings, functional limitations, and past medical history as indicated above Examination: Demonstrable impairment in strength, balance, and range of motion with underlying impairments and functional limitations as documented above Presentation: Evolving Decision Makin moderate complexity Goals: Goals X1 week 1. Supine-Sit independent 2. Sit-Supine independent 3. Sit-Stand independent 4. Stand-Sit independent 5. Bed-Chair independent 6. Chair-Bed independent 7. Independent gait on level surface with use of least restrictive device for at least 300 feet without report of pain nor dyspnea 8. Independent stair negotiation while holding onto bilateral rails for at least 10 steps without report of pain nor dyspnea 9. Independent with home exercise program 10. Good static and dynamic standing balance/tolerance Plan of Care/Treatment Plan: 1-2x/day, 7 days/week x 1 week. Initiate Physical Therapy intervention for strengthening, bed mobility, transfers, gait, stairs, balance training, use of assistive device. DISCHARGE RECOMMENDATIONS: Patient will benefit from a front wheel walker to maximize independence at home. Patient will benefit from home health PT services in order to progress mobility level using least restrictive assistive ambulatory device, assess home safety, identify additional equipment needs, and establish a functional maintenance program that will increase ability of patient to remain at home. TREATMENT CODE/TIME: 71412 x 32 minutes beginning at 8:57 AM. Thank you very much for this referral. Lisa Baum PT, DPT, CLT [facility] [place], [place]
[2019-10-29] MEDS: Gabapentin 300 MG CAP PO ×3 (09:43→19:50)
[2019-10-29] MEDS: buPROPion-XL 150 MG TABCR 300 MG PO (09:44)
[2019-10-29] MEDS: cefTRIAXone 1 GM/50 ML BAG IVPB (09:44)
--- NOTE | 2019-10-29 09:52 | PHACLINREV_ITS ---
Pharmacy Admission Review - Admission Clinical Review (Last Reviewed 10/28/19 @ 13:32 by Vincenzo Michaud MD) Abdominal pain (Acute) Discharge planning issues (Acute) Weight loss counseling, encounter for (Acute) Acute exacerbation of chronic obstructive pulmonary disease (COPD) (Acute) CAP (community acquired pneumonia) (Acute) Continuous opioid dependence (Acute 09/11/06) Diabetes mellitus (Acute 08/11/10) Fluid overload (Acute) Bilateral pneumonia (Acute 04/29/14) gabapentin Adverse Reaction (Severe, Verified 10/28/19 07:55) Nausea metaxalone [Metaxalone] Adverse Reaction (Severe, Verified 10/28/19 07:55) nausea diclofenac [Diclofenac] Adverse Reaction (Intermediate, Verified 10/28/19 07:55) contraindicated w/ pt's liver promethazine Adverse Reaction (Mild, Verified 10/28/19 07:55) disoriented prochlorperazine Adverse Reaction (Unknown, Verified 10/28/19 07:55) disoriented Height 4 ft 9 in Weight 34.7 kg - Renal Dosing Renal Dosing: BUN 29 mg/dL (7-18) H D 10/29/19 06:15 Creatinine 0.72 mg/dL (0.55-1.02) 10/29/19 06:15 Medications needing adjustments: Reviewed (Crcl ~39.94 mL/min current meds okay. metoclopramide and spironolactone dosing may need adjustements if renal function worsens.) - Anticoagulation Anticoagulation: Hgb 14.7 g/dL (12.0-15.5) 10/29/19 06:15 Hct 43.9 % (36.0-46.0) 10/29/19 06:15 Plt Count 478 x1000/uL (130-400) H 10/29/19 06:15 INR Cancelled 10/28/19 08:27 Creatinine 0.72 mg/dL (0.55-1.02) 10/29/19 06:15 DVT Prohphylaxis: Reviewed (enoxaparin and aspirin put on hold due to heme+ emesis last night) - Opiate Usage Evaluate Pain Scale/Pains Meds: Reviewed Scheduled Bowel Reg ordered if on Opiates?: No (has prn meds ordered) - Relevant Labs Sodium 132 mmol/L (136-145) L 10/29/19 06:15 Potassium 4.1 mmol/L (3.5-5.1) D 10/29/19 06:15 Chloride 91 mmol/L (98-107) L 10/29/19 06:15 Magnesium 2.2 mg/dL (1.8-2.4) 10/29/19 06:15 Electrolytes, C-Reactive P, ESR: Reviewed - DM Control DM Control: Glucose 120 mg/dL (74-106) H 10/29/19 06:15 Hemoglobin A1c 6.0 % (3.8-5.6) H 10/29/19 06:15 Finger Stick Blood Glucose 115 Finger Stick Blood Glucose 115 Insulin Dosing: Reviewed (sliding scale aspart ordered) - Heart Failure/MN Heart Failure/MN: Troponin I < 0.05 ng/Ml (<0.06) 10/28/19 11:05 NT-Pro-B Natriuret Pep 272 pg/mL (<300) 10/29/19 06:15 EF%, MICKI's, B-Blockers, Diuretics: Reviewed (furosemide, lisinopril, spironolactone) - BP Control BP Control: Blood Pressure 115/75 Blood Pressure 128/83 Blood Pressure 134/84 If elevated: N/A - Qtc Review If Elevated: N/A (QTc 459- pt currently has methadone, hydroxyzine, albuterol and formoterol ordered) - IV to PO Switch IV Medications: Reviewed - Home Meds Home Med List reviewed: Reviewed (Multiple MANA[facility] depressants: gabapentin, hydroxyzine, methadone, mirtazapine. Recommended to avoid concomitant use of MA[facility] depressants when possible; if combined limit dosage/duration and monitor closely for adverse effects. Separate admin of gabapentin and magnesium chloride. Multiple anticholinergic meds: ipratropium, hydroxyzine. Recommended to avoid concurrent use of anticholinergic meds; if combination cannot be avoided monitor for anticholinergic related toxicities. Ibuprofen may diminish the therapeutic effect of furosemide and furosemide may enhance the nephrotoxic effect of ibuprofen. Consider alternatives, monitor for decreased therapeutic effects and evidence of TAWANDA.) Relevent Home Meds Not ordered & why?: fluticasone/vilanterol (symbicort substituted for this), ibuprofen (PRN), omeprazole (has pantoprazole ordered), triamcinolone cream - Current meds Current Medication Order Review: Intervened (changed morphine from 2 mg syr to 4 mg vial (dose is 4 mg)) - Comments Comments/Follow Ups: watch renal function, Na, Cl, for imaging results, for restart of anticoagulation pending possible bleed, and for addition of any QT prolonging meds. Antibiotic Activity - Pharmacy Antibiotic Review Pharmacy Antibiotic Activity: C/S review (Blood cultures pending, watch for results.)
[2019-10-29] MEDS: Omnipaque 350 MG/ML 100 ML BTL IV (10:08)
[2019-10-29] MEDS: Normal Saline - Diluent 50 ML VIAL IV (10:52)
[2019-10-29] MEDS: Lisinopril 10 MG TAB PO (11:04)
[2019-10-29] MEDS: Magnesium Chloride 64 MG TABCR 128 MG PO ×2 (11:04→21:40)
[2019-10-29] MEDS: Cholecalciferol (Vitamin D3) 1,000 UNIT TAB 2000 UNITS PO (11:04)
[2019-10-29 12:54] LABS: *AMPHETAMINES SCREEN URINE Negative (Negative); *BARBITURATES SCREEN URINE Negative (Negative); *BENZODIAZEPINES SCREEN URINE Negative (Negative); Cannabinoids THC Negative (Negative); Cocaine Screen,Urine Negative (Negative); METHADONE URINE SCREEN POSITIVE (Negative); OPIATES URINE SCREEN POSITIVE (Negative)
[2019-10-29 12:56] LABS: Tricyclic Antidepressants POSITIVE (Negative)
--- NOTE | 2019-10-29 14:46 | W.INDIABCONS ---
Date of service: 10/29/19 Time of Service: 14:46 Diabetes Inpatient Consult DESCRIPTION/ASSESSMENT: 64 year old female admitted with dyspnea, worsening kyphoscoliosis with CAP, COPD. Hx of diet controlled diabetes, chronic tobacco use with 40 lbs weight loss in last 6 months with BMI of 16. Met briefly with Kira today and she requests ensure BID. Reports not knowing why she is losing weight and reports able to consume meals without SOB. A1C 6% (10/29/19) indicating adequate glucose control. Currently NPO due to tests today. Labs indicate elevated liver enzymes, BUN. Has hx of ETOH abuse. At very high risk for nutritional decline. Has classic malnutrition with hx of significant weight loss, long history of insufficient energy intake, loss of muscle, loss of subcutaneous fat and diminished functional status. INTERVENTION: Severe malnutrition in context of chronic illness with poor intake > 1 month, and 53% weight loss in last 180 days Inadequate nutrient intake due to dyspnea and malaise Will monitor labs, weight and po intake and make recommendations as warranted. Plan: continue diabetic diet when appropriate ensure BID will provide meal preferences for optimal intake. Time Spent in Nutritional Counseling and Treatment: 5 min
--- NOTE | 2019-10-29 14:54 | W.PM.PROGNOT ---
Date of Service Date of service: 10/29/19 Time of Service: 14:54 Assessment and Plan Assessment and plan (1) Acute exacerbation of chronic obstructive pulmonary disease (COPD): Status: Acute Assessment and plan: Patient's dyspnea appears to be improved. It may have been exacerbated by the abdominal pain, acute gastroenteritis she appears to be experiencing. Will change her from Solu-Medrol to p.o. prednisone 40 mg daily. Continue with her usual inhalers and updrafts. O2 supplementation as needed. (2) GI bleed: Status: Chronic Assessment and plan: Patient had coffee-ground emesis overnight. Her hemoglobin hematocrit are stable. We will stop aspirin and Lovenox therapy. Start PPI therapy. Given her history of massive weight loss will consult general surgery for upper and lower endoscopy, rule out occult malignancy. (3) Weight loss counseling, encounter for: Status: Acute Assessment and plan: Patient has gone from 125 pounds to 83 pounds in the last year. Work-up for occult malignancy is thus far negative. CT of the chest abdomen and pelvis showed no obvious malignancy. Now with coffee-ground emesis she should probably be scoped from above and below to rule out gastrointestinal malignancy. Will consult general surgery for elective endoscopy. (4) Continuous opioid dependence: Status: Acute Assessment and plan: She is on her maintenance methadone. She has required an increase of morphine for the breakthrough pain. She looks comfortable. (5) Diabetes mellitus: Status: Acute Assessment and plan: Hemoglobin A1c is 6.0. She has mild glucose intolerance. Coverage insulin only. (6) CAP (community acquired pneumonia): Status: Acute Assessment and plan: The CT from admission showed overall improvement in the infiltrates from September 19, 2019. She has had no fever. Her white count elevation is chronic. She went from 15 to 17,000 with the introduction of Solu-Medrol. There does not appear to be an acute bacterial infection. We will stop the ceftriaxone. (7) Hyponatremia: Status: Acute Assessment and plan: Sodium at 132. She has chronic hyponatremia. CT of chest did not show evidence of a malignancy. Continue to monitor. (8) Tobacco abuse: Status: Chronic Assessment and plan: Patient still smokes a few cigarettes per day. Continue nicotine replacement. (9) Discharge planning issues: Status: Acute Assessment and plan: She is DNI. Will ask palliative care to see her regarding overall health care decision making and goals. Subjective Subjective Interval history since last seen: Patient is subjectively feeling much better today. She had somewhat of a rough night last night with some abdominal pain 10 out of 10. She required an increased dose of morphine. She had an episode of emesis that appeared coffee ground in texture. Heme test positive. Minimal cough. No fevers. Exam Narrative Exam Narrative: On exam she is sitting up in bed. She is much more alert and interactive today. At the time of my exam she had no abdominal pain. Her breathing was at baseline. Her lung sounds were noted for expiratory musical breath sounds bilaterally. No inspiratory rales were heard. Heart sounds were regular. Her abdomen is scaphoid and nontender. There is no masses palpable. Lower extremities show evidence of muscle wasting. There is no edema. Distal perfusion is good. Neurologically there are no focal deficits. Objective Objective Clinical Data: Abnormal lab results 10/29/19 10/29/19 10/29/19 Range/Units 06:15 06:15 06:15 WBC 17.72 H (4.4-10.8) k/cumm RBC 5.82 H (4.00-5.20) m/cumm MCV 75.4 L (80-95) fL MCH 25.3 L (27.0-33.0) pg RDW 17.8 H (11.7-14.6) % Plt Count 478 H (130-400) x1000/uL Absolute Neutrophils 14.57 H (1.2-6.7) k/cumm Absolute Monocytes 0.92 H (0.11-0.7) k/cumm Sodium 132 L (136-145) mmol/L Chloride 91 L (98-107) mmol/L Carbon Dioxide 32.7 H (21.0-32.0) mmol/L BUN 29 H D (7-18) mg/dL Glucose 120 H (74-106) mg/dL Hemoglobin A1c 6.0 H (3.8-5.6) % Alkaline Phosphatase 121 H (46-116) U/L Total Protein 8.6 H (6.4-8.2) g/dL Urine Opiates Screen (Negative) Urine Methadone Screen (Negative) Ur Tricyclics Screen (Negative) 10/29/19 Range/Units 12:10 WBC (4.4-10.8) k/cumm RBC (4.00-5.20) m/cumm MCV (80-95) fL MCH (27.0-33.0) pg RDW (11.7-14.6) % Plt Count (130-400) x1000/uL Absolute Neutrophils (1.2-6.7) k/cumm Absolute Monocytes (0.11-0.7) k/cumm Sodium (136-145) mmol/L Chloride (98-107) mmol/L Carbon Dioxide (21.0-32.0) mmol/L BUN (7-18) mg/dL Glucose (74-106) mg/dL Hemoglobin A1c (3.8-5.6) % Alkaline Phosphatase (46-116) U/L Total Protein (6.4-8.2) g/dL Urine Opiates Screen Positive A (Negative) Urine Methadone Screen Positive A (Negative) Ur Tricyclics Screen Positive A (Negative) Vital Signs Temperature 37 C 10/29/19 10:29 Temperature Source Tympanic 10/29/19 10:29 Pulse 92 H 10/29/19 10:29 Pulse Rhythm Regular 10/29/19 07:54 Pulse 101 H 10/28/19 11:31 Respiratory Rate 18 10/29/19 10:29 Respiratory Effort 10/29/19 07:54 Respiratory Depth Shallow 10/29/19 07:54 Respiratory Pattern Normal 10/29/19 07:54 Blood Pressure 138/84 10/29/19 10:29 Blood Pressure Mean 104 10/28/19 11:31 Blood Pressure Position Sitting 10/28/19 07:49 Pulse Oximetry 94 L 10/29/19 10:29 Oxygen Delivery Method Room Air 10/29/19 10:29 Oxygen Flow Rate 0 10/29/19 10:29 Pain Level 6 10/29/19 10:29 Intake & Output 10/28/19 10/29/19 10/29/19 23:59 11:59 23:59 Intake Total 3050 / 3050 480 / 480 Output Total 1200 / 1200 Balance 1850 / 1850 480 / 480 Weight 36.741 kg 34.7 kg Intake: IV 300 / 300 Oral 2750 / 2750 480 / 480 Output: Urine 250 / 250 Emesis 950 / 950 Other: Urine Color Yellow Urine Appearance Clear Urine Odor None Comment pt missed hat and voided in toilet. unable to get UDS. bladder scanned pvr for 128, 123 and 18. for an avg of 89.6 or 90cc rounded. Emesis Description Coffee Grounds Gastric Occult Blood Positive Voiding Methods Toilet Toilet Laboratory Results WBC 17.72 k/cumm (4.4-10.8) H 10/29/19 06:15 RBC 5.82 m/cumm (4.00-5.20) H 10/29/19 06:15 Hgb 14.7 g/dL (12.0-15.5) 10/29/19 06:15 Hct 43.9 % (36.0-46.0) 10/29/19 06:15 MCV 75.4 fL (80-95) L 10/29/19 06:15 MCH 25.3 pg (27.0-33.0) L 10/29/19 06:15 MCHC 33.5 g/dL (32.0-36.0) 10/29/19 06:15 RDW 17.8 % (11.7-14.6) H 10/29/19 06:15 Plt Count 478 x1000/uL (130-400) H 10/29/19 06:15 MPV 9.5 fL (8.0-11.0) 10/29/19 06:15 Immature Gran % 0.3 % 10/29/19 06:15 Neutrophils % 82.2 10/29/19 06:15 Lymphocytes % 12.2 10/29/19 06:15 Monocytes % 5.2 10/29/19 06:15 Eosinophils % 0.0 10/29/19 06:15 Basophils % 0.1 10/29/19 06:15 Absolute Neutrophils 14.57 k/cumm (1.2-6.7) H 10/29/19 06:15 Absolute Lymphocytes 2.16 k/cumm (1.2-3.4) 10/29/19 06:15 Absolute Monocytes 0.92 k/cumm (0.11-0.7) H 10/29/19 06:15 Absolute Eosinophils 0.00 k/cumm (0.0-0.7) 10/29/19 06:15 Absolute Basophils 0.02 k/cumm (0.0-0.2) 10/29/19 06:15 PT Cancelled 10/28/19 08:27 INR Cancelled 10/28/19 08:27 APTT 26.1 sec (21.0-31.4) 10/28/19 08:20 D-Dimer 717 ng/mlFEU (<500) H 10/28/19 08:20 Sodium 132 mmol/L (136-145) L 10/29/19 06:15 Potassium 4.1 mmol/L (3.5-5.1) D 10/29/19 06:15 Chloride 91 mmol/L (98-107) L 10/29/19 06:15 Carbon Dioxide 32.7 mmol/L (21.0-32.0) H 10/29/19 06:15 Anion Gap 8.3 mmol/L (3-11) 10/29/19 06:15 BUN 29 mg/dL (7-18) H D 10/29/19 06:15 Creatinine 0.72 mg/dL (0.55-1.02) 10/29/19 06:15 Estimated GFR/1.73 m2 >= 60.00 (mL/min/1.73m2) 10/29/19 06:15 Glucose 120 mg/dL (74-106) H 10/29/19 06:15 Hemoglobin A1c 6.0 % (3.8-5.6) H 10/29/19 06:15 Calcium 9.7 mg/dL (8.5-10.1) 10/29/19 06:15 Magnesium 2.2 mg/dL (1.8-2.4) 10/29/19 06:15 Total Bilirubin 0.4 mg/dL (0.2-1.0) 10/29/19 06:15 AST 22 U/L (15-37) 10/29/19 06:15 ALT 20 U/L (14-59) 10/29/19 06:15 Alkaline Phosphatase 121 U/L (46-116) H 10/29/19 06:15 Troponin I < 0.05 ng/Ml (<0.06) 10/28/19 11:05 NT-Pro-B Natriuret Pep 272 pg/mL (<300) 10/29/19 06:15 Total Protein 8.6 g/dL (6.4-8.2) H 10/29/19 06:15 Albumin 3.6 g/dL (3.4-5.0) 10/29/19 06:15 Lipase 108 U/L (73-393) 10/29/19 06:15 Urine Opiates Screen Positive (Negative) A 10/29/19 12:10 Urine Methadone Screen Positive (Negative) A 10/29/19 12:10 Ur Barbiturates Screen Negative (Negative) 10/29/19 12:10 Ur Tricyclics Screen Positive (Negative) A 10/29/19 12:10 Ur Amphetamines Screen Negative (Negative) 10/29/19 12:10 U Benzodiazepines Scrn Negative (Negative) 10/29/19 12:10 Urine Cocaine Screen Negative (Negative) 10/29/19 12:10 Ur THC Screen Negative (Negative) 10/29/19 12:10 Ethyl Alcohol < 3.0 mg/dL (<3) 10/29/19 01:10 COVID-19 PCR Negative (Negative) 10/28/19 10:52 Nasopharyn COVID-19 PCR Not Applicable 10/28/19 10:52 Ref Test Perform Site [facility] hospital lab 10/28/19 10:52 Objective Narrative Objective Narrative: CT abdomen and pelvis showed no evidence of any masses or abnormality.
--- NOTE | 2019-10-29 15:50 | CHAPLAIN ---
Kira and I remember each other from previous admissions. She said she is feeling better today, but is worried about a significant weight loss, and other unexplained symptoms, she said. She was going for a contrast scan later this morning and anxious to get results about what's going on with her.
--- NOTE | 2019-10-29 16:01 | PT.INTREAT ---
Date of service: 10/29/19 Time of Service: 16:01 PT Notes Visit Reasons: B/L PNEUMONIA/COPD EXACERBATION Inpatient Physical Therapy Treatment Note [facility] Date: 10/29/2019 PRECAUTIONS: Fall. Standard. Activity as tolerated. SUBJECTIVE: Ti and is very much relieved to know that her abdominal ultrasound is negative for any tumors or ongoing issues. She understands that she needs just to be more aware and in control of her food intake once she goes home. She plans on continuing with Meals on Wheels and be more vigilant of her intake amount. OBJECTIVE: General Observation: Electric heating pad over abdominal area. Asthenic. Thoracic kyphosis. Minimally out of breath with level surface ambulation. Mental Status: Alert and oriented x4 Pain: 3-4/10 abdominal pain at rest and with movement Bed Mobility/Transfers: Rolling standby assist Supine to sit standby assist using BUE for support with HOB 45 degrees Sit to supine standby assist using BUE for support with HOB 45 degrees Sit to stand standby assist with minimal verbal cueing for correct hand placement, feels more stable using a front wheel walker Stand to sit standby assist with minimal verbal cueing for correct hand placement, feels more stable using a front wheel walker Bed to chair standby assist with minimal verbal cueing for correct hand placement, feels more stable using a front wheel walker Chair to bed standby assist with minimal verbal cueing for correct hand placement, feels more stable using a front wheel walker Gait: Patient was able to tolerate level surface ambulation of 100 feet using front wheeled walker with contact-guard assist and wheelchair follow with PT. Decreased david. Decreased step length and step height. Minimal breathlessness observed. THERA EX: Patient tolerated seated level exercises consisting of ankle circles 10 times clockwise and other 10 times counterclockwise, seated hip flexion x10, and seated hip abduction x10 with intermittent pursed lip breathing incorporated after each exercise. Patient also was able to perform chest expansion exercises consisting of shoulder flexion x10 and shoulder abduction x10 both with pursed lip breathing x5. Assessment: Patient performed with increased independence with bed mobility and transfers compared to this morning. She is much more relaxed right now that she was told that her ultrasound testing was negative for me for any acute abnormality. Patient demonstrates generalized weakness, need for assistive device for mobility ADL performance, unsteadiness on feet, and difficulty with walking which increased risk for falls. She will require skilled physical therapy services in order to achieve goals established below. Patient is a 64-year-old female who presented to the ED via EMS on 10/28/2019 with chief complaints of shortness of breath, back pain, and nausea. Patient is diagnosed with COPD exacerbation, community-acquired pneumonia, and diabetes mellitus. On 10/29/2019 patient had an additional diagnosis of abdominal pain and fluid overload. Patient tested negative for COVID-19 as of 10/29/2019. PT TREATMENT TIME/CODE: 9753 0 x 15 minutes, 9711 0 x 9 minutes, beginning at 16:01 PM.
--- NOTE | 2019-10-29 16:04 | W.PALLCONSUL ---
Date of service: 10/29/19 Time of Service: 16:04 History of Present Illness Narrative: Patient is a 64-year-old woman with significant problems with COPD, 40 pound weight loss, abdominal pain and recent GI bleed, and opioid dependency. She is severely kyphotic. She recently came into the emergency room because of severe shortness of breath and GI bleed. Per nursing she is doing much much better today than what she had done yesterday. Her aim is to get better from this admission and go home. Consults Consult date: 10/29/19 Requesting physician: Vincenzo Michaud Assessment and Plan Assessment and plan (1) GI bleed: Status: Chronic (2) Abdominal pain: Status: Acute (3) Acute exacerbation of chronic obstructive pulmonary disease (COPD): Status: Acute (4) Palliative care patient: Status: Acute Assessment and plan: Presently she is in the midst of a work-up for GI. As we were talking the general surgeon did come in to get permission for an EGD and colonoscopy. She has completed a CO LST form through telehealth. I would like to readdress these issues as I do not think that she would be a good person for CPR especially considering her frail bony structure. Our visit was cut short but I will return. She is lost [address] scan of chest abdomen and pelvis are reassuring. Await her EGD and colonoscopy. What was remarkable is that her albumin was in the normal range. She states that she is eating. She may be breathing so labored recently that is using up all of her calories. I did recommend carnation instant breakfast. I will follow her inpatient every few days and just as importantly outpatient. I think she would benefit from palliative care assessments on a regular basis. Regarding her breathing, she is getting morphine on a regular basis. Opioid dependency this is a tricky thing as we want her to be as comfortable as possible but she also does have history of opioids etc. this will make it more difficult Thank you very much for this consult I did speak to Dr. Bates about our visit This document was created by [employer] software. Content was screened for misspellings, grammatical mistakes, etc. I apologize for any problems, but please contact me for further clarification if needed. Review of Systems Narrative: Again patient states that she is feeling so much better. Her breathing is better. She does not feel is weak and tired and she did. She continues with shortness of breath but that is her life. She does not have any chest pain. Her abdominal pain has improved greatly. She continues to be weak. [facility] Medical History (Updated 11/01/19 @ 08:25 by Ame Morales MD, DC) Abnormal CT of the chest (Acute 03/18/17) stable 2mm nodule in AILYN Annual Chest CT for lung cancer screening recommended Acute renal failure (Resolved 04/29/14) a. creatinine bumped from 0.8 to 2.9 b. h/o renal failure 06/2013, presented with creatinine 5.4, which normalized with IV fluids Acute right-sided low back pain without sciatica (Acute 06/08/17) Pain rad thru buttock, but not down leg. Priformis Syndr? [ ] PT [ ] Hx Pain Clinic (Injctn #1 helped, #2 did not). Occasional relief from SOMA. Trial GABAPENTIN 06/09/18.in past Anxiety and depression (Chronic) Bilateral pneumonia (Acute 04/29/14) A. Bilateral lower lobes Cirrhosis Cirrhosis of liver (Chronic) a. History of Hep C treatment. b. Liver biopsy 2005 positive for cirrhosis. 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 AFP levels every six months and ruq US every 12 months COPD (chronic obstructive pulmonary disease) (Chronic) Ongoing tobacco use. COPD (chronic obstructive pulmonary disease) (Chronic) Diabetes (Chronic) On Metformin. Diabetes mellitus DNI (do not intubate) (Acute) Essential hypertension (Chronic) Well maintained, meds tolerated. Hepatitis C HTN (hypertension) Hypertension (Chronic) Methadone dependence (Chronic) Neuropathy of right radial nerve (Chronic) a. recently had multiple falls and a hematoma around her humerus b. resolving Pleuritic chest pain (Acute 04/29/14) a. left sided POLST (Physician Orders for Life-Sustaining Treatment) (Acute) Polysubstance abuse (Chronic) a. h/o opiate overdose 06/2013 and 11/2013 b. recently started in [facility] program 03/13/2014 on oral methadone (missed her dose today) Shortness of breath (Acute) Spinal stenosis (Chronic) a. MRI 10/2009, showed L4-5 narrowing Tobacco abuse (Chronic) Tobacco use disorder Varices of esophagus determined by endoscopy (Acute) Surgical History Appendectomy (01/30/07) H/O: hysterectomy (Chronic) History of ankle surgery (Acute) left S/P bilateral breast lumpectomy (Acute) Family History Mother Myocardial infarction Stroke Sister Diabetes Myocardial infarction Sister Diabetes Father Diabetes Alcohol abuse Myocardial infarction Social History Smoking/Tobacco Use Status: Current every day Tobacco Type: cigarettes Smoking packs per day: 1 Smoking cigarettes per day: 20.0 Years smoked: 40 Smoking pack-years: 40.00 Quit status: considering quitting Counseling given: other Details: pt feels motivated and states she doesnt enjoy them now Alcohol Intake: never Drug use: Current Sobriety Substance use type: heroin Details: on [facility] Adopted: No Household members: none Housing: house Communication Needs: None Pets and animals: Yes Pets and animals: cat(s) What is your relationship status?: Panel score (0-1 are the most socially isolated patients): 0 What type of physical activity do you participate in: none Seatbelt use: always Drive intox or ride w/intox jitney driver: No Working smoke detector in home: Yes Fire extinguisher in home: Yes Carbon monox detector in home: Yes Do you feel safe at home: Yes Do you feel safe in your relationship?: Yes Exam Narrative Exam Narrative: She is cooperative, sitting up in bed, supported by pillows in her back. She is able to sit up on her own. Lungs very little air movement. Chest her heart rate is in the upper 90s and is regular. Her abdomen is mildly tender but is not tense She does not appear depressed today. she is somewhat anxious She does not have any edema Laboratory Tests 09/19/19 10/28/19 10/28/19 06:25 08:20 10:52 Hgb Hct D-Dimer 717 H VBG pCO2 54 H Sodium BUN Hemoglobin A1c Total Protein Albumin COVID-19 PCR Negative 10/29/19 10/29/19 10/29/19 06:15 06:15 06:15 Hgb 14.7 Hct 43.9 D-Dimer VBG pCO2 Sodium 132 L BUN 29 H D Hemoglobin A1c 6.0 H Total Protein 8.6 H Albumin 3.6 COVID-19 PCR Exam(s) a CT:CT abdomen & pelvis w EXAM: CT ABDOMEN PELVIS W CLINICAL HISTORY: abdominal pain, vomiting, weight loss TECHNIQUE: Imaging Protocol: Axial computed tomography images with coronal and sagittal reformatted images were created and reviewed CONTRAST MATERIAL: Intravenous: Omnipaque 350 Contrast volume:70 mL Oral: Yes COMPARISON: CT ABD PELVIS WITH CONTRAST from 09/05/[address] CHEST PE CTA from 10/28/2019 FINDINGS: ABDOMEN: Lung Bases: Stable interstitial changes are seen in the lung bases. This may be a combination of both acute and chronic pulmonary change. Liver: Normal density. No measurable mass. Portal, Superior Mesenteric, and Splenic Veins: Unremarkable. Gallbladder and Biliary Tract: No radiodense calculus or dilation. Pancreas: Normal density, no abnormal calcifications or inflammatory process. Spleen: Normal. Adrenals: No masses seen. Kidneys: Normal size, contour and axis. No radiodense stones or obstructive uropathy. No masses seen. Abdominal Aorta: Abdominal portion non-dilated. Atherosclerosis. Bowel: No obstruction or bowel wall thickening. No evidence of acute appendicitis. Peritoneal Cavity: No ascites, collection or mesenteric inflammatory response. Lymph Nodes: Within normal limits. Bones: There is a marked right convex scoliotic curvature of the thoracolumbar spine. Multilevel degenerative changes are seen throughout the lumbar spine. Soft Tissues: Unremarkable. PELVIS: Bladder: Symmetric distention, no gross wall thickening. Reproductive Organs: Unremarkable as visualized. Patient appears to be status post hysterectomy. Lymph Nodes: Within normal limits. Bones: Multilevel degenerative changes are present. IMPRESSION: 1. No acute abdominal pelvic process. 2. No evidence of an abdominal or pelvic mass or adenopathy. 3. Atherosclerosis. 4. Marked right convex scoliosis. Multilevel degenerative changes in the spine. Results Last Vital Signs Temp 98.4 F 10/29/19 15:15 Pulse 88 10/29/19 15:15 Resp 18 10/29/19 15:15 BP 110/73 10/29/19 15:15 Pulse Ox 92 L 10/29/19 15:15 Labs Result diagrams: 10/31/19 06:15 11/01/19 06:05 Labs: Laboratory Results - last 24 hr 10/28/19 10/29/19 10/29/19 10:52 01:10 01:10 WBC RBC Hgb 14.6 Hct 43.3 MCV MCH MCHC RDW Plt Count MPV Immature Gran % Neutrophils % Lymphocytes % Monocytes % Eosinophils % Basophils % Absolute Neutrophils Absolute Lymphocytes Absolute Monocytes Absolute Eosinophils Absolute Basophils Sodium Potassium Chloride Carbon Dioxide Anion Gap BUN Creatinine Estimated GFR/1.73 m2 Glucose Hemoglobin A1c Calcium Magnesium Total Bilirubin AST ALT Alkaline Phosphatase NT-Pro-B Natriuret Pep Total Protein Albumin Lipase Urine Opiates Screen Urine Methadone Screen Ur Barbiturates Screen Ur Tricyclics Screen Ur Amphetamines Screen U Benzodiazepines Scrn Urine Cocaine Screen Ur THC Screen Ethyl Alcohol < 3.0 COVID-19 PCR Negative Nasopharyn COVID-19 PCR Not Applicable Ref Test Perform Site [facility] hospital lab 10/29/19 10/29/19 10/29/19 05:35 06:15 06:15 WBC 17.72 H RBC 5.82 H Hgb 14.7 Hct 43.9 MCV 75.4 L MCH 25.3 L MCHC 33.5 RDW 17.8 H Plt Count 478 H MPV 9.5 Immature Gran % 0.3 Neutrophils % 82.2 Lymphocytes % 12.2 Monocytes % 5.2 Eosinophils % 0.0 Basophils % 0.1 Absolute Neutrophils 14.57 H Absolute Lymphocytes 2.16 Absolute Monocytes 0.92 H Absolute Eosinophils 0.00 Absolute Basophils 0.02 Sodium Cancelled Potassium Cancelled Chloride Cancelled Carbon Dioxide Cancelled Anion Gap Cancelled BUN Cancelled Creatinine Cancelled Estimated GFR/1.73 m2 Cancelled Glucose Cancelled Hemoglobin A1c Calcium Cancelled Magnesium 2.2 Total Bilirubin AST ALT Alkaline Phosphatase NT-Pro-B Natriuret Pep 272 Total Protein Albumin Lipase 108 Urine Opiates Screen Urine Methadone Screen Ur Barbiturates Screen Ur Tricyclics Screen Ur Amphetamines Screen U Benzodiazepines Scrn Urine Cocaine Screen Ur THC Screen Ethyl Alcohol COVID-19 PCR Nasopharyn COVID-19 PCR Ref Test Perform Site 10/29/19 10/29/19 10/29/19 06:15 06:15 12:10 WBC RBC Hgb Hct MCV MCH MCHC RDW Plt Count MPV Immature Gran % Neutrophils % Lymphocytes % Monocytes % Eosinophils % Basophils % Absolute Neutrophils Absolute Lymphocytes Absolute Monocytes Absolute Eosinophils Absolute Basophils Sodium 132 L Potassium 4.1 D Chloride 91 L Carbon Dioxide 32.7 H Anion Gap 8.3 BUN 29 H D Creatinine 0.72 Estimated GFR/1.73 m2 >= 60.00 Glucose 120 H Hemoglobin A1c 6.0 H Calcium 9.7 Magnesium Total Bilirubin 0.4 AST 22 ALT 20 Alkaline Phosphatase 121 H NT-Pro-B Natriuret Pep Total Protein 8.6 H Albumin 3.6 Lipase Urine Opiates Screen Positive A Urine Methadone Screen Positive A Ur Barbiturates Screen Negative Ur Tricyclics Screen Positive A Ur Amphetamines Screen Negative U Benzodiazepines Scrn Negative Urine Cocaine Screen Negative Ur THC Screen Negative Ethyl Alcohol COVID-19 PCR Nasopharyn COVID-19 PCR Ref Test Perform Site
--- NOTE | 2019-10-29 16:20 | W.SURGCON ---
Date of service: 10/29/19 Time of Service: 16:20 Assessment and Plan Assessment and plan (1) GI bleed: Status: Chronic Assessment and plan: nsaid's and lovenox have stopped. PPI hgb currently stable. no pain or vomting today she has been on cl liq all day today bowel prep tonight EGD & CE in am w/ Dr. Byron tong current medical therapy Informed consent is obtained for the procedural (explained in simple layman's terms that the pt and/or family could understand) explaining risks vs benefits and alternatives to the procedure and consequences if we do not do the procedure and need/rational for the procedure. Risks include but are not limited to: bleeding, infection, perforation of esophagus, stomach, colon, small intestines, bronchus or trachea, or PTX. This would necessitate emergency surgery to repair the damage w/ possible ostomy; and other associated complications w/ the required surgery. Also complications of anesthesia including aspiration, [place]/CVA/. 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 She has a Hx of cirrhosis from ETOH abuse (she doesn't currently drink) and does have Varices. She has never had to have them banded (that she knows of). She has never had a GI bleed before. The abdominal pain was in the lower quadrants. She has not pain currently. . She has no nausea currently and has been tolerating clears today. She has been having lots of nausea lately at home and takes visteril for this, normally she only takes the Vistaril 2 or 3 times a week. For the last week she has been taking it almost daily. She has not noticed overt blood in stools or dark tarry stools. She does not have a hx of 'stomach problems . She is on ASA at home and takes ibuprofen. She is not on any stomach medication at home chronically. She still smokes 2-3 cigs a day. She is not on O2 at home. She is not normally on steroids at home. She says she has not been eating and has had dramatic wt loss over the past year. She has had a CE in the past- she doesn't remember findings. Pt thinks she had her appendix out w/ her REAL. She denies pain or difficulty having BM. She denies any pain or difficulty swallowing. She just isn't hungry/doesn't have much of an appetite. She gets SOB very easily. she has a chronic non-productive cough. She has not had problems with anesthesia in the past. She does get nausea from the prep adn will pre-medicate w/ visteril (this works well for her) and prn zofran. Her last EGD was in 04/29 w/ Jennifer. She has an EGD every 3 yrs. . She had x1 column of Grade I varices. 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 Her last CE was in 08/19. she had a hyperplastic polyp. Per Dr. Michaud- her breathing is probably as good as it is going to be at this time. She is on streriods, which is probably what is causing the elevated WBC. No pneumonia on CT. She has severe scoliosis and can't lay flat. No signif splenis or portal dilation on CT. She is on IV protonix and hgb is stable. CT abdom/pelvis 10/28 ABDOMEN: Lung Bases: Stable interstitial changes are seen in the lung bases. This may be a combination of both acute and chronic pulmonary change. Liver: Normal density. No measurable mass. Portal, Superior Mesenteric, and Splenic Veins: Unremarkable. Gallbladder and Biliary Tract: No radiodense calculus or dilation. Pancreas: Normal density, no abnormal calcifications or inflammatory process. Spleen: Normal. Adrenals: No masses seen. Kidneys: Normal size, contour and axis. No radiodense stones or obstructive uropathy. No masses seen. Abdominal Aorta: Abdominal portion non-dilated. Atherosclerosis. Bowel: No obstruction or bowel wall thickening. No evidence of acute appendicitis. Peritoneal Cavity: No ascites, collection or mesenteric inflammatory response. Lymph Nodes: Within normal limits. Bones: There is a marked right convex scoliotic curvature of the thoracolumbar spine. Multilevel degenerative changes are seen throughout the lumbar spine. Soft Tissues: Unremarkable. PELVIS: Bladder: Symmetric distention, no gross wall thickening. Reproductive Organs: Unremarkable as visualized. Patient appears to be status post hysterectomy. Lymph Nodes: Within normal limits. Bones: Multilevel degenerative changes are present. IMPRESSION: 1. No acute abdominal pelvic process. 2. No evidence of an abdominal or pelvic mass or adenopathy. 3. Atherosclerosis. 4. Marked right convex scoliosis. Multilevel degenerative changes in the spine. chest CT 10/27 COMPARISON: CT CT CHEST PE ABD PELVIS W from 09/19/2019 FINDINGS: Pulmonary Arteries: No evidence of filling defect to suggest pulmonary emboli. Tracheobronchial tree: Patent where visualized. Mediastinum and Shelia: No dominant adenopathy or fluid collection. Pulmonary parenchyma: Scattered areas of consolidation. Worsened areas of septal thickening are seen in the mid and lower lung zones concerning for edema. Pleura: No effusion or pneumothorax. Heart: The heart is not dilated. Coronary artery calcifications are present. No significant pericardial effusion. Aorta: Thoracic aorta non-dilated. Atherosclerosis. No evidence of dissection. Upper abdomen: Unremarkable. Bones: Degenerative changes. Prominent thoracic kyphosis. IMPRESSION: 1. No evidence of pulmonary embolism, thoracic aortic dissection or aneurysm. 2. Slight improvement in bilateral consolidative areas. echo 05/31 Conclusion Left Ventricle : The left ventricle is normal size. Left ventricular systolic function is hyperdynamic. There is normal left ventricular wall thickness. There is normal LV segmental wall motion. LVEF is estimated to be 65-70%. Diastolic function is indeterminate. Right Ventricle : The right ventricle is boarderline enlarged by basal measurement but appears enlarged visually. Right ventricular systolic function appears to be mildly reduced. Atria : Left atrium is enlarged. The right atrium size is mildly enlarged. Aortic Valve : The Aortic valve is sclerotic. Aortic valve is trileaflet. No aortic regurgitation is present. There is no aortic valvular stenosis. Mitral Valve : Mitral valve leaflets are mildly thickened. Mild mitral regurgitation. No evidence of mitral valve stenosis. Tricuspid Valve : Tricuspid valve leaflets are thickened but open well. Mild to moderate tricuspid regurgitation. Great Vessels : The IVC is mildly dilated but collapses >50% with inspiration. Estimated RVSP is 38-46 mmHg. Compared to echocardiogram dated 10/24/2018: There is no significant change. I did review the case w/ J. KIMBER Miranda Consults Consult date: 10/29/19 Requesting physician: Vincenzo Michaud Review of Systems All systems reviewed & are unremarkable except as noted in HPI and below PFSH Medical History (Updated 10/29/19 @ 20:51 by Nadiya Pedroza, DO) Abnormal CT of the chest (Acute 03/18/17) stable 2mm nodule in AILYN Annual Chest CT for lung cancer screening recommended Acute renal failure (Resolved 04/29/14) a. creatinine bumped from 0.8 to 2.9 b. h/o renal failure 06/2013, presented with creatinine 5.4, which normalized with IV fluids Acute right-sided low back pain without sciatica (Acute 06/08/17) Pain rad thru buttock, but not down leg. Priformis Syndr? [ ] PT [ ] Hx Pain Clinic (Injctn #1 helped, #2 did not). Occasional relief from SOMA. Trial GABAPENTIN 06/09/18.in past Anxiety and depression (Chronic) Bilateral pneumonia (Acute 04/29/14) A. Bilateral lower lobes Cirrhosis Cirrhosis of liver (Chronic) a. History of Hep C treatment. b. Liver biopsy 2005 positive for cirrhosis. 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 AFP levels every six months and ruq US every 12 months COPD (chronic obstructive pulmonary disease) (Chronic) Ongoing tobacco use. COPD (chronic obstructive pulmonary disease) (Chronic) Diabetes (Chronic) On Metformin. Diabetes mellitus DNI (do not intubate) (Acute) Essential hypertension (Chronic) Well maintained, meds tolerated. Hepatitis C HTN (hypertension) Hypertension (Chronic) Methadone dependence (Chronic) Neuropathy of right radial nerve (Chronic) a. recently had multiple falls and a hematoma around her humerus b. resolving Pleuritic chest pain (Acute 04/29/14) a. left sided POLST (Physician Orders for Life-Sustaining Treatment) (Acute) Polysubstance abuse (Chronic) a. h/o opiate overdose 06/2013 and 11/2013 b. recently started in [facility] program 03/13/2014 on oral methadone (missed her dose today) Shortness of breath (Acute) Spinal stenosis (Chronic) a. MRI 10/2009, showed L4-5 narrowing Tobacco abuse (Chronic) Tobacco use disorder Varices of esophagus determined by endoscopy (Acute) Surgical History Appendectomy (01/30/07) H/O: hysterectomy (Chronic) History of ankle surgery (Acute) left S/P bilateral breast lumpectomy (Acute) Family History Mother Myocardial infarction Stroke Sister Diabetes Myocardial infarction Sister Diabetes Father Diabetes Alcohol abuse Myocardial infarction Social History Smoking/Tobacco Use Status: Current every day Tobacco Type: cigarettes Smoking packs per day: 1 Smoking cigarettes per day: 20.0 Years smoked: 40 Smoking pack-years: 40.00 Quit status: considering quitting Counseling given: other Details: pt feels motivated and states she doesnt enjoy them now Alcohol Intake: never Drug use: Current Sobriety Substance use type: heroin Details: on [facility] Adopted: No Household members: none Housing: house Communication Needs: None Pets and animals: Yes Pets and animals: cat(s) What is your relationship status?: Panel score (0-1 are the most socially isolated patients): 0 What type of physical activity do you participate in: none Seatbelt use: always Drive intox or ride w/intox hook up driver: No Working smoke detector in home: Yes Fire extinguisher in home: Yes Carbon monox detector in home: Yes Do you feel safe at home: Yes Do you feel safe in your relationship?: Yes Exam Const General: comfortable, no acute distress and frail appearing Nutritional Appearance: cachectic, malnourished and underweight Orientation: alert and oriented x3 HENMT Head: normal to inspection Ears: hearing grossly normal bilaterally Mouth: oral mucosae normal and tongue normal Teeth and gingiva: poor dentition Other: chronic sun damage/and from long standing tobbacco use to skin Eyes Sclera: sclerae normal Resp Effort & Inspection: normal respiratory effort, able to speak in complete sentences, no audible wheezes and no cough Auscultation: breath sounds absent Other: no wheeze Cardio Rate: regular rate Rhythm: regular rhythm GI Inspection: normal to inspection Palpation: soft, not firm, nontender and No ascites Extrem General: no clubbing, cyanosis or edema Other: severe spine scoliosis Results Last Vital Signs Temp 36.9 C 10/29/19 15:15 Pulse 88 10/29/19 15:15 Resp 18 10/29/19 15:15 BP 110/73 10/29/19 15:15 Pulse Ox 92 L 10/29/19 15:15 Labs Result diagrams: 10/29/19 06:15 10/29/19 06:15 Labs: Laboratory Results - last 24 hr 10/28/19 10/29/19 10/29/19 10:52 01:10 01:10 WBC RBC Hgb 14.6 Hct 43.3 MCV MCH MCHC RDW Plt Count MPV Immature Gran % Neutrophils % Lymphocytes % Monocytes % Eosinophils % Basophils % Absolute Neutrophils Absolute Lymphocytes Absolute Monocytes Absolute Eosinophils Absolute Basophils Sodium Potassium Chloride Carbon Dioxide Anion Gap BUN Creatinine Estimated GFR/1.73 m2 Glucose Hemoglobin A1c Calcium Magnesium Total Bilirubin AST ALT Alkaline Phosphatase NT-Pro-B Natriuret Pep Total Protein Albumin Lipase Urine Opiates Screen Urine Methadone Screen Ur Barbiturates Screen Ur Tricyclics Screen Ur Amphetamines Screen U Benzodiazepines Scrn Urine Cocaine Screen Ur THC Screen Ethyl Alcohol < 3.0 COVID-19 PCR Negative Nasopharyn COVID-19 PCR Not Applicable Ref Test Perform Site [facility] lab 10/29/19 10/29/19 10/29/19 05:35 06:15 06:15 WBC 17.72 H RBC 5.82 H Hgb 14.7 Hct 43.9 MCV 75.4 L MCH 25.3 L MCHC 33.5 RDW 17.8 H Plt Count 478 H MPV 9.5 Immature Gran % 0.3 Neutrophils % 82.2 Lymphocytes % 12.2 Monocytes % 5.2 Eosinophils % 0.0 Basophils % 0.1 Absolute Neutrophils 14.57 H Absolute Lymphocytes 2.16 Absolute Monocytes 0.92 H Absolute Eosinophils 0.00 Absolute Basophils 0.02 Sodium Cancelled Potassium Cancelled Chloride Cancelled Carbon Dioxide Cancelled Anion Gap Cancelled BUN Cancelled Creatinine Cancelled Estimated GFR/1.73 m2 Cancelled Glucose Cancelled Hemoglobin A1c Calcium Cancelled Magnesium 2.2 Total Bilirubin AST ALT Alkaline Phosphatase NT-Pro-B Natriuret Pep 272 Total Protein Albumin Lipase 108 Urine Opiates Screen Urine Methadone Screen Ur Barbiturates Screen Ur Tricyclics Screen Ur Amphetamines Screen U Benzodiazepines Scrn Urine Cocaine Screen Ur THC Screen Ethyl Alcohol COVID-19 PCR Nasopharyn COVID-19 PCR Ref Test Perform Site 10/29/19 10/29/19 10/29/19 06:15 06:15 12:10 WBC RBC Hgb Hct MCV MCH MCHC RDW Plt Count MPV Immature Gran % Neutrophils % Lymphocytes % Monocytes % Eosinophils % Basophils % Absolute Neutrophils Absolute Lymphocytes Absolute Monocytes Absolute Eosinophils Absolute Basophils Sodium 132 L Potassium 4.1 D Chloride 91 L Carbon Dioxide 32.7 H Anion Gap 8.3 BUN 29 H D Creatinine 0.72 Estimated GFR/1.73 m2 >= 60.00 Glucose 120 H Hemoglobin A1c 6.0 H Calcium 9.7 Magnesium Total Bilirubin 0.4 AST 22 ALT 20 Alkaline Phosphatase 121 H NT-Pro-B Natriuret Pep Total Protein 8.6 H Albumin 3.6 Lipase Urine Opiates Screen Positive A Urine Methadone Screen Positive A Ur Barbiturates Screen Negative Ur Tricyclics Screen Positive A Ur Amphetamines Screen Negative U Benzodiazepines Scrn Negative Urine Cocaine Screen Negative Ur THC Screen Negative Ethyl Alcohol COVID-19 PCR Nasopharyn COVID-19 PCR Ref Test Perform Site
[2019-10-29] MEDS: Bisacodyl 5 MG TABEC 10 MG PO (16:27)
[2019-10-29] MEDS: hydrOXYzine PAMOATE 25 MG CAP PO (18:26)
[2019-10-29] MEDS: Mirtazapine 15 MG TAB 30 MG PO (21:40)
[2019-10-30] VITALS (8 sets, daily range): BP systolic 102–126; BP diastolic 66–73; PULSE 79–109; RESP 16–19; TEMP 36.2–37.3; O2SAT 88–95
[2019-10-30] MEDS: Bisacodyl 5 MG TABEC 10 MG PO (00:35)
[2019-10-30] MEDS: Normal Saline Flush 10 ML SYR IVP ×3 (06:48→21:22)
[2019-10-30] MEDS: Budesonide/Formoterol 160/4.5 6 GM 60 PUFF INH IH ×2 (08:05→19:43)
[2019-10-30] MEDS: Methadone Liquid 10 MG/ML 75 MG PO (08:14)
[2019-10-30] MEDS: predniSONE 20 MG TAB 40 MG PO (08:15)
[2019-10-30] MEDS: Spironolactone 50 MG TAB PO ×2 (08:16→19:43)
[2019-10-30] MEDS: Pantoprazole 40 MG TABCR PO (08:16)
[2019-10-30] MEDS: Furosemide 20 MG TAB PO ×2 (08:16→15:39)
[2019-10-30] MEDS: Normal Saline 1,000 ML 50 ML IV (09:32)
[2019-10-30] MEDS: Nicotine 14 MG/24 HR PATCH TD (09:39)
--- NOTE | 2019-10-30 10:28 | PT.INTREAT ---
Date of service: 10/30/19 Time of Service: 10:28 PT Notes Visit Reasons: B/L PNEUMONIA/COPD EXACERBATION Inpatient Physical Therapy Treatment Note [facility] Date: 10/30/2019 PRECAUTIONS: Fall. Standard. Activity as tolerated. SUBJECTIVE: Ti states that she is too tired today. She appears anxious about how here abdominal testing (endoscopy) will go this afternoon. She is agreeable to a short session today. She reports no pain. OBJECTIVE: General Observation: Asthenic. Thoracic kyphoscoliosis. Minimally out of breath with level surface ambulation. Mental Status: Alert and oriented x4 Pain: None reported Bed Mobility/Transfers: Rolling independent Supine to sit independent using her B UE for support with HOB 45 degrees Sit to supine independent using her B UE for support with HOB 45 degrees Sit to stand supervision with minimal verbal cueing for correct hand placement, no assistive device needed Stand to sit supervision with minimal verbal cueing for correct hand placement, no assistive device needed Bed to chair supervision with minimal verbal cueing for correct hand placement, no assistive device needed Chair to bed supervision with minimal verbal cueing for correct hand placement, no assistive device needed Gait: Patient was able to tolerate level surface ambulation of 200 feet + 100 feet using front wheeled walker with standby assist. Gloria increasing. Continued decreased step length and step height. Minimal breathlessness observed. Patient also managed to negotiate up and down six 4 inch steps and four 6 inch steps while holding onto bilateral rails with step over step pattern requiring only standby assist. Assessment: Patient performed with increased independence with bed mobility and transfers compared to yesterday. She appears a bit anxious about how her endoscopy will go this afternoon. She did a lot better overall considering her report of being fatigue at the start of the session. She was unavailable for an afternoon session due to endoscopy procedure. Plan: Continue with PT POC as initially established in anticipation of return to home when medically cleared. Patient will benefit from the use of a front wheeled walker for long distance ambulation. PT TREATMENT TIME/CODE: 24434 x 28 minutes beginning at 10:28 AM.
[2019-10-30 11:25] LABS: C-Reactive Protein 0.18 mg/dL (0.0-0.3)
[2019-10-30 12:00] LABS: ESR 21 mm/hr (0-30)
[2019-10-30 12:09] LABS: Procalcitonin < 0.1 ng/mL
--- NOTE | 2019-10-30 12:10 | BOWEL_PTH ---
PATIENT: SHOSHANA ARMSTRONG LOC: [facility] Gibbs#:[id number] AGE/SX: 64/F ROOM: RE10/29/[address]: Vincenzo Michaud : 1955 BED: A DIS: 11/01/2019 SPEC #: [id number] RECD: 10/30/19 14:36 STATUS: SHEMAR REQ #: [id number] STANISLAV: 10/30/19 12:[address]: Vincenzo Michaud DEPT: Surgical Specimen RECD BY: Blanche Yang ENTERED: 10/30/19 14:40 SP TYPE: Bowel OTHR DR: Kirsten Friedman, Nadiya Crawley Tissues: 1 - BIOPSY BOWEL 2 - STOMACH BIOPSY 3 - BIOPSY BOWEL 4 - BIOPSY BOWEL Procedures: GROSS AND MICRO LEVEL 4 Comments: [id number]
--- NOTE | 2019-10-30 12:55 | W.PM.ENDDOP ---
Date of service: 10/30/19 Time of Service: 12:56 Endoscopy Report DATE OF PROCEDURE: 10/30/19 PRE-OP DIAGNOSIS: Coffee ground emesis, weight loss POST-OP DIAGNOSIS: other (Mild atrophic gastritis, rectal polyp, rectal ulcer) PROCEDURE: EGD with biopsy Colonoscpy with cold forceps polypectomy and biopsy SURGEON: Kalie Matthews ANESTHESIA: MAC DISPOSITION: floor INDICATIONS: Patient was admitted 2 days ago with a COPD exacerbation. During her hospitalization she had nausea with a small coffee-ground emesis. Her hemoglobin has remained stable. She has a history of cirrhosis with grade 1 varices. Her last EGD was in 2016. Her last colonoscopy in 2008. She has also had a recent 30 pound weight loss over the last few months. PROCEDURE DESCRIPTION: The patient was placed in the left lateral decubitus position. Propofol was titrated to sedation. The scope was advanced into her esophagus under direct visualization and down into the stomach and duodenum. There is no duodenitis or ulcers noted. Biopsies were taken from the second portion of the duodenum to evaluate for celiac disease as the cause of her weight loss. The stomach itself revealed mild atrophic gastritis primarily involving the body and antrum of the stomach. Retroflexed view showed a small hiatal hernia. No gastric varices were noted. Biopsies were taken from the gastric body. The GE junction exhibited no masses, Zhao's, inflammation or strictures. No esophageal varices were noted. The scope was slowly withdrawn with no other esophageal lesions found. Digital rectal examination revealed no abnormalities. The scope was advanced to the cecum without difficulty. The ileocecal valve and appendiceal orifice were clearly identified. Her prep was marginal with a few areas of thick stool. Approximately 5% of the colon wall was obscured. The scope was slowly withdrawn with no abnormality seen within the ascending,transverse, descending or sigmoid colon. In the rectum there was a less than 1 cm polyp that was removed with the cold forceps. A few centimeters proximal to the anal opening was a shallow ulceration. The periphery of this was biopsied. This may be related to rectal prolapse or perhaps suppository usage. She tolerated the procedure well and stable to recovery.
[2019-10-30] MEDS: buPROPion-XL 150 MG TABCR 300 MG PO (13:18)
[2019-10-30] MEDS: Gabapentin 300 MG CAP PO ×2 (13:19→19:44)
[2019-10-30] MEDS: Cholecalciferol (Vitamin D3) 1,000 UNIT TAB 2000 UNITS PO (13:19)
--- NOTE | 2019-10-30 14:55 | W.PM.PROGNOT ---
Date of Service Date of service: 10/30/19 Time of Service: 14:56 Assessment and Plan Assessment and plan (1) Acute exacerbation of chronic obstructive pulmonary disease (COPD): Status: Acute Assessment and plan: Continue prednisone 40 mg daily for a 5 to 7-day course. We will check an ABG along with ambulatory oximetry and PFTs in the morning. We will see if she qualifies for trilogy. Continue Symbicort. We will add Spiriva to her regimen. Use albuterol on a as needed basis. We will give her an Acapella device to see if this helps with mobilization of sputum (2) GI bleed: Status: Chronic Assessment and plan: No further coffee-ground hematemesis. H&H is stable. Continue use of a PPI for GI prophylaxis. (3) Weight loss counseling, encounter for: Status: Acute Assessment and plan: Patient has gone from 125 pounds to 83 pounds in the last year. Work-up for occult malignancy is thus far negative. CT of the chest abdomen and pelvis showed no obvious malignancy. Further routine health screening to be done by her PCP including mammogram. Patient has been counseled by dietitian to try to improve on her weight loss. This will need monitored as an outpatient. I think her weight loss may be explained by her depression over the loss of her in the last year as well as COPD cachexia (4) Continuous opioid dependence: Status: Acute Assessment and plan: She is on her maintenance methadone. She has required an increase of morphine for the breakthrough pain. She looks comfortable. (5) Diabetes mellitus: Status: Acute Assessment and plan: Hemoglobin A1c is 6.0. She has mild glucose intolerance. Coverage insulin only. 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 She has had no fever. Her white count elevation is chronic. She went from 15 to 17,000 with the introduction of Solu-Medrol. There does not appear to be an acute bacterial infection. Pro-inflammatory markers are negative including a normal procalcitonin, normal ESR normal CRP. I think her groundglass opacifications are chronic and secondary to her underlying chronic lung disease. Qualifiers: Laterality: unspecified laterality Qualified Code(s): J18.9 - Pneumonia, unspecified organism (7) Hyponatremia: Status: Acute Assessment and plan: Sodium at 132. She has chronic hyponatremia. CT of chest did not show evidence of a malignancy. Continue to monitor. (8) Tobacco abuse: Status: Chronic Assessment and plan: Patient still smokes a few cigarettes per day. Continue nicotine replacement. (9) Discharge planning issues: Status: Acute Assessment and plan: She is DNI. Dr. Morales saw the patient in consultation for palliative medicine yesterday. At this time her note is incomplete so I will await completion of her consultation and learn more about the results of the patient's discussion regarding long-term care. In support of her chronic lung disease we are trying to see if she will qualify for Trilogy device. Subjective Subjective Interval history since last seen: Patient underwent EGD earlier this afternoon for evaluation of weight loss and coffee-ground emesis from yesterday. Patient reports a 42 pound weight loss over the past year. She previously weighed 125 pounds down to 83 pounds. She is undergone a work-up for occult malignancy including CT scan of the chest abdomen and pelvis. CT of her chest was performed on admission on October 28, 2019 and was compared to a prior study from September 19, 2019. No PE was seen. There is no hilar or mediastinal adenopathy no pleural effusion. She has scattered groundglass consolidation and septal thickening and nonspecific nodular opacities consistent with small airway disease. She also has centrilobular emphysema. Findings are comparable to her previous study from September 19, 2019. Reportedly there is slight improvement in the upper lobes. CT of her abdomen pelvis showed no acute abdominal or pelvic process no abdominal or pelvic mass or adenopathy. She has marketed scoliosis. Dr. Kalie Crane performed EGD and colonoscopy today. EGD showed no duodenitis and no gastric or duodenal ulcers and no esophageal ulcers. Stomach had some mild atrophic gastritis involving the body and antrum. She has a small hiatal hernia. No gastric varices were seen. No Zhao's esophagitis was seen no inflammation and no strictures and no varices. Biopsies were obtained from the stomach and duodenum. Colonoscopy was advanced to the cecum. Prep was marginal with few areas of thickened stool. Approximately 5% the colon wall was obscured. Ascending transverse and descending colon and sigmoid colon showed no abnormalities. There is a 1 cm polyp at the rectum which was removed. There is a shallow ulceration of the anal opening and biopsies were obtained. Patient states that her breathing is significantly better today. She states she has a chronic cough coughs up foamy white mucus 3 to 5 days/week. She denies any fever or rigors. Repeat CBC from yesterday continue to show leukocytosis 17,000 which was increased from admission at 15,000 however the patient was started on high-dose steroids. I checked inflammatory markers including a CRP that was normal at 0.18 and a procalcitonin level that was normal at less than 0.1. Her ESR was normal at 21. I think based on the lack of fever the lack of purulent sputum and normal inflammatory markers there is no evidence for ongoing pulmonary infection. I think the opacifications in her lungs are probably chronic and related to her chronic lung disease. She continues to smoke couple cigarettes a day. She is not on any home oxygen. We are to get some pulmonary function test tomorrow morning and do an amatory pulse oximetry today as well as an ABG to see if she qualifies for a home oxygen or use of a trilogy machine to help with her breathing. Hopefully if she qualifies this will help reduce her need for rehospitalization and help her manage her dyspnea at home. Again she is encouraged to quit smoking and she is encouraged to enroll in a pulmonary rehab program. Exam Narrative Exam Narrative: Thin kyphotic female sitting up in bed not wearing her oxygen in no acute respiratory distress able to speak in entire paragraphs. She is alert and oriented person place time circumstance. Lungs reveal scattered fine cellophane rales along with some expiratory wheezes. Heart is regular rate and rhythm without appreciable murmur rub or gallop. Abdomen is scaphoid nontender. Extremities without cyanosis or edema Objective Objective Clinical Data: Vital Signs Temperature 36.2 C L 10/30/19 13:08 Temperature Source Tympanic 10/30/19 13:08 Pulse 79 10/30/19 13:08 Pulse Rhythm Regular 10/30/19 07:55 Pulse 101 H 10/28/19 11:31 Respiratory Rate 16 10/30/19 13:08 Respiratory Effort 10/30/19 07:55 Respiratory Depth Normal 10/30/19 07:55 Respiratory Pattern Normal 10/30/19 07:55 Blood Pressure 118/73 10/30/19 13:08 Blood Pressure Mean 104 10/28/19 11:31 Blood Pressure Position Sitting 10/28/19 07:49 Pulse Oximetry 94 L 10/30/19 13:08 Oxygen Delivery Method Room Air 10/30/19 13:08 Oxygen Flow Rate 0 10/30/19 13:08 Pain Level 6 10/30/19 13:08 Intake & Output 10/29/19 10/30/19 10/30/19 23:59 11:59 23:59 Intake Total 0 / 600 600 / 600 Output Total 1750 / 1750 1150 / 1550 400 / 1550 Balance -1750 / -1270 -1150 / -950 200 / -950 Weight 35.1 kg Intake: IV 600 / 600 Oral 0 / 0 Output: Urine 650 / 650 250 / 650 400 / 650 Stool 1100 / 1100 900 / 900 Other: Urine Color Yellow Yellow Yellow Urine Appearance Clear Clear Clear Urine Odor Normal Comment SMALL AMT PER PT MIXED IN WITH LIQUID BM. Stool Occult Blood Negative Stool Size Large Stool Characteristics Liquid Liquid Black Brown Voiding Methods Toilet Toilet Toilet Laboratory Results WBC 17.72 k/cumm (4.4-10.8) H 10/29/19 06:15 RBC 5.82 m/cumm (4.00-5.20) H 10/29/19 06:15 Hgb 14.7 g/dL (12.0-15.5) 10/29/19 06:15 Hct 43.9 % (36.0-46.0) 10/29/19 06:15 MCV 75.4 fL (80-95) L 10/29/19 06:15 MCH 25.3 pg (27.0-33.0) L 10/29/19 06:15 MCHC 33.5 g/dL (32.0-36.0) 10/29/19 06:15 RDW 17.8 % (11.7-14.6) H 10/29/19 06:15 Plt Count 478 x1000/uL (130-400) H 10/29/19 06:15 MPV 9.5 fL (8.0-11.0) 10/29/19 06:15 Immature Gran % 0.3 % 10/29/19 06:15 Neutrophils % 82.2 10/29/19 06:15 Lymphocytes % 12.2 10/29/19 06:15 Monocytes % 5.2 10/29/19 06:15 Eosinophils % 0.0 10/29/19 06:15 Basophils % 0.1 10/29/19 06:15 Absolute Neutrophils 14.57 k/cumm (1.2-6.7) H 10/29/19 06:15 Absolute Lymphocytes 2.16 k/cumm (1.2-3.4) 10/29/19 06:15 Absolute Monocytes 0.92 k/cumm (0.11-0.7) H 10/29/19 06:15 Absolute Eosinophils 0.00 k/cumm (0.0-0.7) 10/29/19 06:15 Absolute Basophils 0.02 k/cumm (0.0-0.2) 10/29/19 06:15 ESR 21 mm/hr (0-30) 10/30/19 11:00 PT Cancelled 10/28/19 08:27 INR Cancelled 10/28/19 08:27 APTT 26.1 sec (21.0-31.4) 10/28/19 08:20 D-Dimer 717 ng/mlFEU (<500) H 10/28/19 08:20 Sodium 132 mmol/L (136-145) L 10/29/19 06:15 Potassium 4.1 mmol/L (3.5-5.1) D 10/29/19 06:15 Chloride 91 mmol/L (98-107) L 10/29/19 06:15 Carbon Dioxide 32.7 mmol/L (21.0-32.0) H 10/29/19 06:15 Anion Gap 8.3 mmol/L (3-11) 10/29/19 06:15 BUN 29 mg/dL (7-18) H D 10/29/19 06:15 Creatinine 0.72 mg/dL (0.55-1.02) 10/29/19 06:15 Estimated GFR/1.73 m2 >= 60.00 (mL/min/1.73m2) 10/29/19 06:15 Glucose 120 mg/dL (74-106) H 10/29/19 06:15 Hemoglobin A1c 6.0 % (3.8-5.6) H 10/29/19 06:15 Calcium 9.7 mg/dL (8.5-10.1) 10/29/19 06:15 Magnesium 2.2 mg/dL (1.8-2.4) 10/29/19 06:15 Total Bilirubin 0.4 mg/dL (0.2-1.0) 10/29/19 06:15 AST 22 U/L (15-37) 10/29/19 06:15 ALT 20 U/L (14-59) 10/29/19 06:15 Alkaline Phosphatase 121 U/L (46-116) H 10/29/19 06:15 Troponin I < 0.05 ng/Ml (<0.06) 10/28/19 11:05 C-Reactive Protein 0.18 mg/dL (0.0-0.3) 10/30/19 11:00 NT-Pro-B Natriuret Pep 272 pg/mL (<300) 10/29/19 06:15 Total Protein 8.6 g/dL (6.4-8.2) H 10/29/19 06:15 Albumin 3.6 g/dL (3.4-5.0) 10/29/19 06:15 Lipase 108 U/L (73-393) 10/29/19 06:15 Procalcitonin < 0.1 ng/mL 10/30/19 11:00 Urine Opiates Screen Positive (Negative) A 10/29/19 12:10 Urine Methadone Screen Positive (Negative) A 10/29/19 12:10 Ur Barbiturates Screen Negative (Negative) 10/29/19 12:10 Ur Tricyclics Screen Positive (Negative) A 10/29/19 12:10 Ur Amphetamines Screen Negative (Negative) 10/29/19 12:10 U Benzodiazepines Scrn Negative (Negative) 10/29/19 12:10 Urine Cocaine Screen Negative (Negative) 10/29/19 12:10 Ur THC Screen Negative (Negative) 10/29/19 12:10 Ethyl Alcohol < 3.0 mg/dL (<3) 10/29/19 01:10 COVID-19 PCR Negative (Negative) 10/28/19 10:52 Nasopharyn COVID-19 PCR Not Applicable 10/28/19 10:52 Ref Test Perform Site [facility] lab 10/28/19 10:52
--- NOTE | 2019-10-30 14:59 | W.NUTRFU ---
Date of service: 10/30/19 Time of Service: 14:59 Nutritional Follow up NOTE: Met with Kira today. Test taken today negative per Kira. She attributes her weight loss to depression after her last year. She has been taking remeron for depression and as appetite stimulant. Receives meals on wheels daily and has adequate resources to purchase foods. Discussed caloric need for slow weight regain, provided education materials. will start ensure BID when diet advanced. will continue to monitor po intake,weight, labs. Time Spent in Nutritional Counseling and Treatment: 15 min
[2019-10-30] MEDS: Magnesium Chloride 64 MG TABCR 128 MG PO ×2 (15:08→21:21)
[2019-10-30] MEDS: Tiotropium Bromide-Respimat 10 PUFF INH 2 PUFF IH (16:45)
--- NOTE | 2019-10-30 16:55 | PDOC.CMPRO ---
- If Service Date Differs Date of service: 10/30/19 Time of Service: 16:56 Care Management Progress Note S/O: Kira was sitting up in her bed when CM met with her. She reported that she was feeling much better today. She had a surgical procedure today to try to determine the source of her weight loss, with the results pending at this time. She asked CM if her insurance would cover Ensure for weight gain, which CM will look into. She spoke of her , who 6 years ago, and how his passing has changed her habits, as she now lives alone. CM will continue to follow. A: Kira is a 64 year old female admitted to [facility] on 10/28/19 with B/L Pneumonia, COPD Exacerbation. P: Kira will likely return home when medically ready with a resumption of services. Kira would like assistance with buying Ensure Plus, if possible. CM will explore options and support Kira with this endeavor. Kira will follow up with her PCP and discharge plan of care. CM will continue to support Kira and her discharge planning needs.
[2019-10-30] MEDS: Insulin Aspart 300 UNITS/3 ML PEN SC (16:59)
[2019-10-30 17:26] LABS: BE 4.8 mmol/L (-3-3); HCO3 29 mmol/L (22-28); pCO2 43 mmHg (34-47); pH 7.44 (7.35-7.45); pO2 71 mmHg (83-108); sO2 94 % (94-98); tCO2 26 mmol/L (22-29)
[2019-10-30] MEDS: Mirtazapine 15 MG TAB 30 MG PO (21:21)
[2019-10-31] VITALS (7 sets, daily range): BP systolic 96–117; BP diastolic 51–71; PULSE 73–108; RESP 16–20; TEMP 36.5–37.4; O2SAT 86–96
[2019-10-31 06:31] LABS: Abs Immature Grans 0.04 k/cumm (0.0-0.09); Absolute Basophil Count 0.02 k/cumm (0.0-0.2); Absolute Monocyte Count 1.25 k/cumm (0.11-0.7); Basophils % 0.1; Eosinophils % 0.7; HCT 36.6 % (36.0-46.0); HGB 11.8 g/dL (12.0-15.5); Immature Grans % 0.2 %; Lymphocytes % 25.6; Mean Corp. HGB Concentration 32.2 g/dL (32.0-36.0); Mean Corpuscular Hemoglobin 25.3 pg (27.0-33.0); Mean Corpuscular Volume 78.4 fL (80-95); Mean Platelet Volume 9.8 fL (8.0-11.0); Monocytes % 7.8; Neutrophils % 65.6; Platelet Count 332 x1000/uL (130-400); RBC 4.67 m/cumm (4.00-5.20); RBC Distribution Width 17.1 % (11.7-14.6); White Blood Cell Count 16.07 k/cumm (4.4-10.8)
[2019-10-31 06:33] LABS: Absolute Eosinophil Count 0.11 k/cumm (0.0-0.7); Absolute Lymphocyte Count 4.11 k/cumm (1.2-3.4); Absolute Neutrophil Count 10.54 k/cumm (1.2-6.7)
[2019-10-31 06:37] LABS: Anion Gap 3.9 mmol/L (3-11); BUN 21 mg/dL (7-18); CO2 33.1 mmol/L (21.0-32.0); CREATININE 0.69 mg/dL (0.55-1.02); Calcium 8.4 mg/dL (8.5-10.1); Chloride 95 mmol/L (98-107); Glucose 70 mg/dL (74-106); Potassium 3.4 mmol/L (3.5-5.1); Sodium 132 mmol/L (136-145)
[2019-10-31] MEDS: Normal Saline Flush 10 ML SYR IVP ×5 (06:46→22:02)
[2019-10-31] MEDS: Methadone Liquid 10 MG/ML 75 MG PO (07:54)
[2019-10-31] MEDS: Furosemide 20 MG TAB PO ×2 (07:55→16:01)
[2019-10-31] MEDS: predniSONE 20 MG TAB 40 MG PO (07:55)
[2019-10-31] MEDS: Pantoprazole 40 MG TABCR PO (07:55)
[2019-10-31] MEDS: Spironolactone 50 MG TAB PO ×2 (07:55→19:15)
[2019-10-31] MEDS: Cholecalciferol (Vitamin D3) 1,000 UNIT TAB 2000 UNITS PO (07:55)
[2019-10-31] MEDS: Gabapentin 300 MG CAP PO ×3 (07:55→19:15)
[2019-10-31] MEDS: Lisinopril 10 MG TAB PO (07:55)
[2019-10-31] MEDS: buPROPion-XL 150 MG TABCR 300 MG PO (07:55)
[2019-10-31] MEDS: Magnesium Chloride 64 MG TABCR 128 MG PO ×2 (10:14→22:02)
[2019-10-31] MEDS: Budesonide/Formoterol 160/4.5 6 GM 60 PUFF INH IH ×2 (11:52→19:16)
[2019-10-31] MEDS: Tiotropium Bromide-Respimat 10 PUFF INH 2 PUFF IH (11:52)
--- NOTE | 2019-10-31 12:11 | PGE_ITS ---
Date of Service Date of service: 10/31/19 Time of Service: 12:11 Assessment and Plan Assessment and plan (1) Acute exacerbation of chronic obstructive pulmonary disease (COPD): Status: Acute Assessment and plan: C continue oral prednisone 40 mg daily for 7-day course. Continue Spiriva and Symbicort with as needed use of albuterol for breakthrough bronchospasm. Continue use of incentive spirometer and Acapella as needed for pulmonary toiletry. At this point she does not appear to be have much of sputum production. At present I do not feel that she has an acute pulmonary infection her inflammatory markers were normal including CRP and ESR and procalcitonin. I think her groundglass opacifications on her CT scan are customer solutions representative of her chronic lung disease. She should be referred to a panel machine setter upon discharge for follow-up. (2) Weight loss counseling, encounter for: Status: Acute Assessment and plan: Patient has gone from 125 pounds to 83 pounds in the last year. Work-up for occult malignancy is thus far negative. CT of the chest abdomen and pelvis showed no obvious malignancy. 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 Continue with nutritional support from the dietitian. Add protein shakes to her meals. (3) Continuous opioid dependence: Status: Acute Assessment and plan: She is on her maintenance methadone. She has required an increase of morphine for the breakthrough pain. She looks comfortable. (4) Diabetes mellitus: Status: Acute Assessment and plan: Hemoglobin A1c is 6.0. She has mild glucose intolerance. Coverage insulin only. Qualifiers: Diabetes mellitus type: type 2 Diabetes mellitus detention insulin use: without detention use Diabetes mellitus complication status: without complication Qualified Code(s): E11.9 - Type 2 diabetes mellitus without complications (5) Tobacco abuse: Status: Chronic Assessment and plan: Patient still smokes a few cigarettes per day. Continue nicotine replacement. (6) Discharge planning issues: Status: Acute Assessment and plan: Expect discharge either today or tomorrow. This depends on the work-up of her right lower chest/right upper quadrant abdominal pain. If ultrasound shows no acute gallbladder disease and I think she can be discharged home late this afternoon. If she has evidence of a vertebral compression fracture rib fracture then she should have outpatient DEXA scan which should be ordered anyways. If she has a fracture we will treat her with lidocaine patches. She is already receiving morphine for her chronic opioid dependence disorder. (7) Abdominal pain: Status: Acute Assessment and plan: Patient had a CT scan of her abdomen pelvis on admission. No acute abnormality was seen. Will check a right upper quadrant abdominal ultrasound. We will also get x-rays of her right ribs as well as her thoracic spine to rule out vertebral osteoporotic compression fracture and or malignant fracture. Qualifiers: Abdominal location: right upper quadrant Qualified Code(s): R10.11 - Right upper quadrant pain Subjective Subjective Interval history since last seen: She does have kyphosisOverall patient continues to improve from a respiratory standpoint. She has been going without her oxygen and her saturations remained 90 to 95% on room air. She has minimal cough is nonproductive. She is complaining however of right upper quadrant abdominal and right lower chest wall pain. Seems to radiate around to her back. She is questioning whether she could have some gallbladder disease. Review of her CT scan of her abdomen pelvis from 01/29/2020 showed no acute abdominal process. Specifically there was no dilatation of her gallbladder or bile ducts and liver appear to be normal. Kyphosis and right-sided scoliosis. She certainly set up for a vertebral compression fracture or rib fracture. I told her that we would get an ultrasound of her abdomen just to be sure there is no evidence for gallbladder disease and get a x-ray of her thoracic and right rib series. Think overall she is improving and is nearing ready for discharge home. Exam Narrative Exam Narrative: Kyphotic elderly female sitting up on her bedside watching TV and eating her lunch. She appears to be in no respiratory discomfort. Breathing is nonlabored with normal respirations. Lungs reveal scattered squeaky dry rales along with some expiratory wheezes. Heart is regular rate and rhythm without appreciable murmur rub or gallop. Abdomen is mildly tender in the right upper quadrant without guarding or rebound tenderness. There is also some tenderness along the right lower chest wall at the costophrenic margin. She also has some tenderness over the right flank area. Extremities without peripheral cyanosis or edema. Objective Objective Clinical Data: Abnormal lab results 10/30/19 10/31/19 10/31/19 Range/Units 17:22 06:15 06:15 WBC 16.07 H (4.4-10.8) k/cumm Hgb 11.8 L D (12.0-15.5) g/dL MCV 78.4 L (80-95) fL MCH 25.3 L (27.0-33.0) pg RDW 17.1 H (11.7-14.6) % Absolute Neutrophils 10.54 H (1.2-6.7) k/cumm Absolute Lymphocytes 4.11 H (1.2-3.4) k/cumm Absolute Monocytes 1.25 H (0.11-0.7) k/cumm ABG pO2 71 L (83-108) mmHg ABG HCO3 29 H (22-28) mmol/L ABG Base Excess 4.8 H (-3-3) mmol/L Sodium 132 L (136-145) mmol/L Potassium 3.4 L (3.5-5.1) mmol/L Chloride 95 L (98-107) mmol/L Carbon Dioxide 33.1 H (21.0-32.0) mmol/L BUN 21 H D (7-18) mg/dL Glucose 70 L D (74-106) mg/dL Calcium 8.4 L (8.5-10.1) mg/dL Vital Signs Temperature 37.2 C 10/31/19 07:42 Temperature Source Tympanic 10/31/19 07:42 Pulse 86 10/31/19 07:42 Pulse Rhythm Regular 10/31/19 07:59 Pulse 101 H 10/28/19 11:31 Respiratory Rate 18 10/31/19 07:42 Respiratory Effort Non-Labored 10/31/19 07:59 Respiratory Depth Normal 10/31/19 07:59 Respiratory Pattern Normal 10/31/19 07:59 Blood Pressure 117/71 10/31/19 07:42 Blood Pressure Mean 104 10/28/19 11:31 Blood Pressure Position Sitting 10/28/19 07:49 Pulse Oximetry 96 10/31/19 07:42 Oxygen Delivery Method Room Air 10/31/19 07:42 Oxygen Flow Rate 0 10/31/19 07:42 Pain Level 7 10/31/19 07:54 Intake & Output 10/30/19 10/31/19 10/31/19 23:59 11:59 23:59 Intake Total 720 / 720 140 / 140 Output Total 725 / 1875 1400 / 1400 Balance -5 / -1155 -1260 / -1260 Weight 39.6 kg Intake: IV 600 / 600 Oral 120 / 120 120 / 120 Output: Urine 725 / 975 1400 / 1400 Other: Urine Color Yellow Yellow Urine Appearance Clear Clear Urine Odor Normal Normal Voiding Methods Toilet Toilet Laboratory Results WBC 16.07 k/cumm (4.4-10.8) H 10/31/19 06:15 RBC 4.67 m/cumm (4.00-5.20) 10/31/19 06:15 Hgb 11.8 g/dL (12.0-15.5) L D 10/31/19 06:15 Hct 36.6 % (36.0-46.0) 10/31/19 06:15 MCV 78.4 fL (80-95) L 10/31/19 06:15 MCH 25.3 pg (27.0-33.0) L 10/31/19 06:15 MCHC 32.2 g/dL (32.0-36.0) 10/31/19 06:15 RDW 17.1 % (11.7-14.6) H 10/31/19 06:15 Plt Count 332 x1000/uL (130-400) D 10/31/19 06:15 MPV 9.8 fL (8.0-11.0) 10/31/19 06:15 Immature Gran % 0.2 % 10/31/19 06:15 Neutrophils % 65.6 10/31/19 06:15 Lymphocytes % 25.6 10/31/19 06:15 Monocytes % 7.8 10/31/19 06:15 Eosinophils % 0.7 10/31/19 06:15 Basophils % 0.1 10/31/19 06:15 Absolute Neutrophils 10.54 k/cumm (1.2-6.7) H 10/31/19 06:15 Absolute Lymphocytes 4.11 k/cumm (1.2-3.4) H 10/31/19 06:15 Absolute Monocytes 1.25 k/cumm (0.11-0.7) H 10/31/19 06:15 Absolute Eosinophils 0.11 k/cumm (0.0-0.7) 10/31/19 06:15 Absolute Basophils 0.02 k/cumm (0.0-0.2) 10/31/19 06:15 ESR 21 mm/hr (0-30) 10/30/19 11:00 PT Cancelled 10/28/19 08:27 INR Cancelled 10/28/19 08:27 APTT 26.1 sec (21.0-31.4) 10/28/19 08:20 D-Dimer 717 ng/mlFEU (<500) H 10/28/19 08:20 ABG Sample Site Cancelled 10/30/19 Unknown ABG pH Cancelled 10/30/19 Unknown ABG pCO2 Cancelled 10/30/19 Unknown ABG pO2 Cancelled 10/30/19 Unknown ABG HCO3 Cancelled 10/30/19 Unknown ABG Total CO2 Cancelled 10/30/19 Unknown ABG O2 Saturation Cancelled 10/30/19 Unknown ABG Base Excess Cancelled 10/30/19 Unknown Oxygen Liter Flow Cancelled 10/30/19 Unknown FiO2 Cancelled 10/30/19 Unknown Sodium 132 mmol/L (136-145) L 10/31/19 06:15 Potassium 3.4 mmol/L (3.5-5.1) L 10/31/19 06:15 Chloride 95 mmol/L (98-107) L 10/31/19 06:15 Carbon Dioxide 33.1 mmol/L (21.0-32.0) H 10/31/19 06:15 Anion Gap 3.9 mmol/L (3-11) 10/31/19 06:15 BUN 21 mg/dL (7-18) H D 10/31/19 06:15 Creatinine 0.69 mg/dL (0.55-1.02) 10/31/19 06:15 Estimated GFR/1.73 m2 >= 60.00 (mL/min/1.73m2) 10/31/19 06:15 Glucose 70 mg/dL (74-106) L D 10/31/19 06:15 Hemoglobin A1c 6.0 % (3.8-5.6) H 10/29/19 06:15 Calcium 8.4 mg/dL (8.5-10.1) L 10/31/19 06:15 Magnesium 2.2 mg/dL (1.8-2.4) 10/29/19 06:15 Total Bilirubin 0.4 mg/dL (0.2-1.0) 10/29/19 06:15 AST 22 U/L (15-37) 10/29/19 06:15 ALT 20 U/L (14-59) 10/29/19 06:15 Alkaline Phosphatase 121 U/L (46-116) H 10/29/19 06:15 Troponin I < 0.05 ng/Ml (<0.06) 10/28/19 11:05 C-Reactive Protein 0.18 mg/dL (0.0-0.3) 10/30/19 11:00 NT-Pro-B Natriuret Pep 272 pg/mL (<300) 10/29/19 06:15 Total Protein 8.6 g/dL (6.4-8.2) H 10/29/19 06:15 Albumin 3.6 g/dL (3.4-5.0) 10/29/19 06:15 Lipase 108 U/L (73-393) 10/29/19 06:15 Procalcitonin < 0.1 ng/mL 10/30/19 11:00 Urine Opiates Screen Positive (Negative) A 10/29/19 12:10 Urine Methadone Screen Positive (Negative) A 10/29/19 12:10 Ur Barbiturates Screen Negative (Negative) 10/29/19 12:10 Ur Tricyclics Screen Positive (Negative) A 10/29/19 12:10 Ur Amphetamines Screen Negative (Negative) 10/29/19 12:10 U Benzodiazepines Scrn Negative (Negative) 10/29/19 12:10 Urine Cocaine Screen Negative (Negative) 10/29/19 12:10 Ur THC Screen Negative (Negative) 10/29/19 12:10 Ethyl Alcohol < 3.0 mg/dL (<3) 10/29/19 01:10 COVID-19 PCR Negative (Negative) 10/28/19 10:52 Nasopharyn COVID-19 PCR Not Applicable 10/28/19 10:52 Ref Test Perform Site [facility] lab 10/28/19 10:52
[2019-10-31] MEDS: Insulin Aspart 300 UNITS/3 ML PEN SC ×2 (12:20→17:06)
[2019-10-31] MEDS: Potassium Chloride 10 MEQ CAPCR 40 MEQ PO (12:24)
--- NOTE | 2019-10-31 14:39 | CHAPLAIN ---
I visited with Kira yesterday. She said so far the test have not determined why she's lost so much weight, but she is relieved to learn that the tests don't show any kind of cancer or large health issues. Since her , Sherwin, , Kira said she is interested in fixing food for herself as much, and that she never really learned to cook well because of her home situation as kid. She is hoping to enlist the help of a neighbor to learn to cook some meals for herself.
--- NOTE | 2019-10-31 15:21 | DI.RAD_ITS ---
EXAM: XR RIBS ONLY RT CLINICAL HISTORY: Right chest wall pain. COMPARISON: CT CT CHEST PE CTA from 10/28/2019 FINDINGS: BONES: No displaced rib fracture is seen. No bony destructive lesion is seen. There are old healed r ib fractures. IMPRESSION: No acute abnormality.
--- NOTE | 2019-10-31 15:27 | DI.RAD_ITS ---
EXAM: XR THORACIC SPINE COMPLETE CLINICAL HISTORY: Thoracic back pain. TECHNIQUE: 2D digital imaging was performed. COMPARISON: CR XR CHEST 2V PA LATERAL from 12/05/2018 FINDINGS: BONES: There is no acute fracture or destructive lesion. The vertebral bodies and posterior elements are unremarkable. DISKS:There is a stable right convex thoracolumbar scoliosis. Moderate degenerative changes are pres ent throughout the thoracic spine. IMPRESSION: Degenerative changes of the thoracic spine. Scoliosis. DATA REPOSITORY: RADIATION DOSE DELIVERED:
--- NOTE | 2019-10-31 17:26 | PT.INTREAT ---
Date of service: 10/31/19 Time of Service: 17:26 PT Notes Visit Reasons: B/L PNEUMONIA/COPD EXACERBATION Inpatient Physical Therapy Treatment Note [facility] Date: 10/31/2019 PRECAUTIONS: Fall. Standard. Activity as tolerated. Per RT, 2 L of oxygen/minute with all mobility ADL performance. SUBJECTIVE: Ti is happy to know that results from testing she has had has been good results. She continues to report discomfort on her right side of chest aggravated with coughing bouts. She hopes to be going home as soon as she is medically cleared. OBJECTIVE: General Observation: Asthenic. Thoracic kyphoscoliosis. Minimally out of breath with level surface ambulation. Mental Status: Alert and oriented x4 Pain: 2/10 on the side of her chest. Bed Mobility/Transfers: Rolling independent Supine to sit independent using her B UE for support with HOB 45 degrees Sit to supine independent using her B UE for support with HOB 45 degrees Sit to stand supervision with minimal verbal cueing for correct hand placement, no assistive device needed Stand to sit supervision with minimal verbal cueing for correct hand placement, no assistive device needed Bed to chair supervision with minimal verbal cueing for correct hand placement, no assistive device needed Chair to bed supervision with minimal verbal cueing for correct hand placement, no assistive device needed Gait: Patient was able to tolerate level surface ambulation of 260 feet using no assistive device with standby assist. Gloria continuing to increase. Step length and step height increasing. Minimal breathlessness observed on 2 L of oxygen per minute, oxygen saturation ranged from 89% to 93%. Assessment: Patient continues to demonstrate improvement in mobility ADL performance independence. She is reduced to 1 time a day as of today and is modified independent inside her room without an assistive device. Plan: Continue with PT POC as initially established in anticipation of return to home when medically cleared. Patient will benefit from the use of a front wheeled walker for long distance and/or outdoor ambulation. PT TREATMENT TIME/CODE: 72434 x 20 minutes beginning at 17:26 PM.
--- NOTE | 2019-10-31 17:35 | PDOC.CMPRO ---
- If Service Date Differs Date of service: 10/31/19 Time of Service: 17:35 Care Management Progress Note S/O: Kira was sitting up in her bed when CM met with her. She remains in good spirits but she shared that she has a pain in her right abdomen and flank area. This has been coming and going for the past few weeks, she stated. The provider has ordered additional testing so her discharge will be delayed until at least tomorrow. A: Kira is a 64 year old female admitted to [facility] on 10/28/19 with B/L Pneumonia, COPD Exacerbation. P: Kira will likely return home when medically ready with a resumption of services. Kira would like assistance with buying Ensure Plus, if possible. CM will explore options and support Kira with this endeavor. Kira will follow up with her PCP and discharge plan of care. CM will continue to support Kira and her discharge planning needs.
[2019-10-31] MEDS: Polyethylene Glycol 3350 17 GM PACKET PO (19:28)
[2019-10-31] MEDS: Docusate Sodium 100 MG CAP PO (19:28)
[2019-10-31 19:50] LABS: Bilirubin Negative (Negative); Blood Negative (Negative); Clarity Clear (Clear); Glucose Negative (Negative); Ketones Negative (Negative); Leukocyte Esterase Negative (Negative); Nitrite Negative (Negative); Specific Gravity 1.015 (1.005-1.025); Urobilinogen 0.2 EU/dL (Up TO 0.2)
[2019-10-31] MEDS: Mirtazapine 15 MG TAB 30 MG PO (22:02)
[2019-11-01] MEDS: Normal Saline Flush 10 ML SYR IVP ×2 (01:46→04:47)
[2019-11-01 03:28] VITALS: BP 98/64; PULSE 70; RESP 18; TEMP 36.7; O2SAT 95
[2019-11-01 06:43] LABS: Anion Gap 4.8 mmol/L (3-11); BUN 18 mg/dL (7-18); CO2 28.2 mmol/L (21.0-32.0); CREATININE 0.71 mg/dL (0.55-1.02); Calcium 8.6 mg/dL (8.5-10.1); Chloride 98 mmol/L (98-107); Glucose 84 mg/dL (74-106); Potassium 4.7 mmol/L (3.5-5.1); Sodium 131 mmol/L (136-145)
[2019-11-01 07:30] VITALS: BP 104/66; PULSE 72; RESP 16; TEMP 36.7; O2SAT 98
[2019-11-01] MEDS: Tiotropium Bromide-Respimat 10 PUFF INH 2 PUFF IH (08:47)
[2019-11-01] MEDS: Budesonide/Formoterol 160/4.5 6 GM 60 PUFF INH IH (08:48)
--- NOTE | 2019-11-01 08:58 | DI.US_ITS ---
EXAM: US ABDOMEN CLINICAL HISTORY: Right upper quadrant abdominal pain TECHNIQUE: Ultrasound abdomen performed using standard protocol. COMPARISON: No exams were available for comparison FINDINGS: ABDOMINAL AORTA AND IVC: Visualized portions normal caliber. PANCREAS: Not visualized due to overlying bowel. LIVER: Normal. Hepatopedal flow in the Portal Vein. GALLBLADDER: 8 mm mobile gallstone. No evidence of wall thickening. No pericholecystic fluid identif ied. BILIARY SYSTEM: Common bile duct measures 2.5 mm. No intrahepatic biliary ductal dilation. MAYFIELD'S SIGN: Negative. KIDNEYS: Kidneys are symmetric in size. No evidence of renal calculi. No evidence of hydronephrosis. No renal mass or cyst identified. SPLEEN: Not enlarged. ASCITES: None seen. IMPRESSION: Cholelithiasis. No evidence sonographically of acute cholecystitis. DATA REPOSITORY:
[2019-11-01] MEDS: Methadone Liquid 10 MG/ML 75 MG PO (09:00)
[2019-11-01] MEDS: Cholecalciferol (Vitamin D3) 1,000 UNIT TAB 2000 UNITS PO (09:01)
[2019-11-01] MEDS: Lisinopril 10 MG TAB PO (09:02)
[2019-11-01] MEDS: Spironolactone 50 MG TAB PO (09:02)
[2019-11-01] MEDS: predniSONE 20 MG TAB 40 MG PO (09:02)
[2019-11-01] MEDS: buPROPion-XL 150 MG TABCR 300 MG PO (09:02)
[2019-11-01] MEDS: Potassium Chloride 10 MEQ CAPCR 20 MEQ PO (09:02)
[2019-11-01] MEDS: Pantoprazole 40 MG TABCR PO (09:02)
[2019-11-01] MEDS: Furosemide 20 MG TAB PO (09:02)
[2019-11-01] MEDS: Gabapentin 300 MG CAP PO ×2 (09:03→14:22)
--- NOTE | 2019-11-01 10:15 | PTTR_ITS ---
Date of service: 11/01/19 Time of Service: 10:15 PT Notes Visit Reasons: B/L PNEUMONIA/COPD EXACERBATION Inpatient Physical Therapy Treatment Note [facility] Date: 11/01/2019 PRECAUTIONS: Fall. Standard. Activity as tolerated. Per RT, 2 L of oxygen/minute with all mobility ADL performance. SUBJECTIVE: Ti looks forward to going home as soon as she is cleared by her doctor. She did not report any shortness of breath with use of oxygen s upplementation during ambulation activity. She states that she feels more confident about walking and moving about. She hopes to continue with improving her food intake to get her weight up. Mild pain on her right lateral side of chest. OBJECTIVE: General Observation: Asthenic. Thoracic kyphoscoliosis. Mental Status: Alert and oriented x4 Pain: 2/10 on the side of her chest. Bed Mobility/Transfers: Rolling independent Supine to sit independent using her B UE for support with HOB 45 degrees Sit to supine independent using her B UE for support with HOB 45 degrees Sit to stand supervision with minimal verbal cueing for correct hand placement, no assistive device needed Stand to sit supervision with minimal verbal cueing for correct hand placement, no assistive device needed Bed to chair supervision with minimal verbal cueing for correct hand placement, no assistive device needed Chair to bed supervision with minimal verbal cueing for correct hand placement, no assistive device needed Gait: Patient was able to tolerate level surface ambulation of 260 feet using no assistive device with standby assist. Gloria continuing to increase. Step length and step height increasing. Minimal breathlessness observed on 2 L of oxygen per minute, oxygen saturation ranged from 89% to 93%. THERA EX: Patient tolerated standing level balance exercises consisting of high marches x10, bilateral heel raises x10, and partial knee bends x10, with pursed lip breathing performed in between each activity. Patient also managed to perform sit and level balance exercises consisting of bilateral long arc quads x10, and seated hip flexion x10. Assessment: Patient continues to demonstrate improvement in mobility ADL performance independence. She is reduced to 1 time a day as of today and is mo dified independent inside her room without an assistive device. Plan: Continue with PT POC as initially established in anticipation of return to home when medically cleared. Patient will benefit from the use of a front wheeled walker for long distance and/or outdoor ambulation. PT TREATMENT TIME/CODE: 51753 x 12 minutes, [id number] times x12 minutes beginning at 10:15 AM.
[2019-11-01] MEDS: Magnesium Chloride 64 MG TABCR 128 MG PO (10:39)
--- NOTE | 2019-11-01 10:55 | PGE_ITS ---
Date of Service Date of service: 11/01/19 Time of Service: 10:55 Assessment and Plan Assessment and plan (1) Acute exacerbation of chronic obstructive pulmonary disease (COPD): Status: Acute Assessment and plan: Continue inhaled bronchodilators and prednisone. She needs another 3 days of prednisone which she can complete as an outpatient. Patient did not qualify for Trilogy device secondary to her FEV1 being 60%. She had an amatory pulse oximetry study but I cannot find the results in the chart. However I do not believe she is going to qualify for home oxygen as she is maintaining her oxygen saturation on room air both at rest and with activity. (2) Weight loss counseling, encounter for: Status: Acute Assessment and plan: Patient has gone from 125 pounds to 83 pounds in the last year. Work-up for occult malignancy is thus far negative. CT of the chest abdomen and pelvis showed no obvious malignancy. 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 Continue with nutritional support from the dietitian. Add protein shakes to her meals. Patient will need outpatient follow-up with the dietitian as well as with palliative care. (3) Continuous opioid dependence: Status: Acute Assessment and plan: She is on her maintenance methadone. She is requesting morphine although we have no physical evidence for severe pain. I am discontinued morphine at this point and she can be treated with Tylenol and her maintenance methadone. (4) Diabetes mellitus: Status: Acute Assessment and plan: Hemoglobin A1c is 6.0. She has mild glucose intolerance. Coverage insulin only. Qualifiers: Diabetes mellitus type: type 2 Diabetes mellitus termination clerk insulin use: without termination clerk use Diabetes mellitus complication status: without complication Qualified Code(s): E11.9 - Type 2 diabetes mellitus without complications (5) Tobacco abuse: Status: Chronic Assessment and plan: Patient still smokes a few cigarettes per day. Continue nicotine replacement. Patient is requesting a prescription for NicoDerm patches upon discharge. (6) Abdominal pain: Status: Acute Assessment and plan: Patient has 8 mm gallstone. But has no evidence for acute cholecystitis. I will ask her to follow-up with Dr. Pedroza. We will continue to treat her gastritis with a PPI. We will treat her constipation with Relistor. Qualifiers: Abdominal location: right upper quadrant Qualified Code(s): R10.11 - Right upper quadrant pain (7) Gallstones without obstruction of gallbladder: Status: Acute Assessment and plan: Refer to Dr. Pedroza for follow-up. She continues to have abdominal pain despite alleviation of her constipation then I would consider a HIDA scan without CCK. Qualifiers: Cholelithiasis location: gallbladder Cholecystitis presence: without cholecystitis Qualified Code(s): K80.20 - Calculus of gallbladder without cholecystitis without obstruction (8) Constipation: Status: Acute Assessment and plan: DC morphine. Give Relistor and stool softeners. Qualifiers: Constipation type: drug induced constipation Qualified Code(s): K59.03 - Drug induced constipation (9) Discharge planning issues: Status: Acute Assessment and plan: We will plan for discharge this afternoon once we are ensure that she has had a decent bowel movement. I have ordered Relistor to treat her constipation. Subjective Subjective Interval history since last seen: Patient went for an ultrasound of her abdomen which demonstrated gallstones but no evidence for acute cholecystitis. Specifically there was no thickening of her gallbladder wall and no biliary ductal dilatation and no pericholecystic fluid. I will asked Dr. Pedroza to follow-up with her regarding her gallstones. We will continue a PPI for her gastritis. She relates that she has not had a bowel movement in 3 days. She is requesting morphine for her right-sided pain. I told her I do not think that it warrants narcotic analgesics. She can use Tylenol. Because of her gastritis I do not want use an NSAID. I did suggest tramadol but the patient says she does not like the way tramadol makes her feel. I told him to give her some Relistor to treat her constipation and we can withhold further narcotics other than her routine methadone. Think what she has had a bowel movement she can be safely discharged home. She will need to have follow-up with a supervisor poultry processing regarding her groundglass pulmonary infiltrates and she will need to follow-up with Dr. Pedroza regarding her gallstones. Exam Narrative Exam Narrative: Petite anxious elderly female in no acute distress. Lungs reveal diffuse fine cellophane rales Heart is regular rate and rhythm Abdomen scaphoid nondistended normal active bowel sounds. She complains of tenderness along the right upper quadrant and right flank but when I am able to distract her him able to push on his side without exquisite pain. Objective Objective Clinical Data: Abnormal lab results 11/01/19 Range/Units 06:05 Sodium 131 L (136-145) mmol/L Vital Signs Temperature 36.7 C 11/01/19 07:30 Temperature Source Tympanic 11/01/19 07:30 Pulse 72 11/01/19 07:30 Pulse Rhythm Regular 11/01/19 01:50 Pulse 101 H 10/28/19 11:31 Respiratory Rate 16 11/01/19 07:30 Respiratory Effort 11/01/19 01:50 Respiratory Depth Normal 11/01/19 01:50 Respiratory Pattern Normal 11/01/19 01:50 Blood Pressure 104/66 11/01/19 07:30 Blood Pressure Mean 104 10/28/19 11:31 Blood Pressure Position Sitting 10/28/19 07:49 Pulse Oximetry 98 11/01/19 07:30 Oxygen Delivery Method Room Air 11/01/19 07:30 Oxygen Flow Rate 0 11/01/19 07:30 Pain Level 8 11/01/19 09:00 Intake & Output 10/31/19 10/31/19 11/01/19 11:59 23:59 11:59 Intake Total 140 / 890 750 / 890 240 / 240 Output Total 1400 / 2600 1200 / 2600 950 / 950 Balance -1260 / -1710 -450 / -1710 -710 / -710 Weight 39.6 kg 37.9 kg Intake: IV 10 / 30 Oral 120 / 860 740 / 860 240 / 240 Output: Urine 1400 / 2600 1200 / 2600 950 / 950 Other: Urine Color Yellow Straw Straw Urine Appearance Clear Clear Clear Urine Odor Normal Normal Normal Comment found 350cc clear yellow urine in hat in toilet Voiding Methods Toilet Toilet Toilet Laboratory Results WBC 16.07 k/cumm (4.4-10.8) H 10/31/19 06:15 RBC 4.67 m/cumm (4.00-5.20) 10/31/19 06:15 Hgb 11.8 g/dL (12.0-15.5) L D 10/31/19 06:15 Hct 36.6 % (36.0-46.0) 10/31/19 06:15 MCV 78.4 fL (80-95) L 10/31/19 06:15 MCH 25.3 pg (27.0-33.0) L 10/31/19 06:15 MCHC 32.2 g/dL (32.0-36.0) 10/31/19 06:15 RDW 17.1 % (11.7-14.6) H 10/31/19 06:15 Plt Count 332 x1000/uL (130-400) D 10/31/19 06:15 MPV 9.8 fL (8.0-11.0) 10/31/19 06:15 Immature Gran % 0.2 % 10/31/19 06:15 Neutrophils % 65.6 10/31/19 06:15 Lymphocytes % 25.6 10/31/19 06:15 Monocytes % 7.8 10/31/19 06:15 Eosinophils % 0.7 10/31/19 06:15 Basophils % 0.1 10/31/19 06:15 Absolute Neutrophils 10.54 k/cumm (1.2-6.7) H 10/31/19 06:15 Absolute Lymphocytes 4.11 k/cumm (1.2-3.4) H 10/31/19 06:15 Absolute Monocytes 1.25 k/cumm (0.11-0.7) H 10/31/19 06:15 Absolute Eosinophils 0.11 k/cumm (0.0-0.7) 10/31/19 06:15 Absolute Basophils 0.02 k/cumm (0.0-0.2) 10/31/19 06:15 ESR 21 mm/hr (0-30) 10/30/19 11:00 PT Cancelled 10/28/19 08:27 INR Cancelled 10/28/19 08:27 APTT 26.1 sec (21.0-31.4) 10/28/19 08:20 D-Dimer 717 ng/mlFEU (<500) H 10/28/19 08:20 ABG Sample Site Cancelled 10/30/19 Unknown ABG pH Cancelled 10/30/19 Unknown ABG pCO2 Cancelled 10/30/19 Unknown ABG pO2 Cancelled 10/30/19 Unknown ABG HCO3 Cancelled 10/30/19 Unknown ABG Total CO2 Cancelled 10/30/19 Unknown ABG O2 Saturation Cancelled 10/30/19 Unknown ABG Base Excess Cancelled 10/30/19 Unknown Oxygen Liter Flow Cancelled 10/30/19 Unknown FiO2 Cancelled 10/30/19 Unknown Sodium 131 mmol/L (136-145) L 11/01/19 06:05 Potassium 4.7 mmol/L (3.5-5.1) D 11/01/19 06:05 Chloride 98 mmol/L (98-107) 11/01/19 06:05 Carbon Dioxide 28.2 mmol/L (21.0-32.0) 11/01/19 06:05 Anion Gap 4.8 mmol/L (3-11) 11/01/19 06:05 BUN 18 mg/dL (7-18) 11/01/19 06:05 Creatinine 0.71 mg/dL (0.55-1.02) 11/01/19 06:05 Estimated GFR/1.73 m2 >= 60.00 (mL/min/1.73m2) 11/01/19 06:05 Glucose 84 mg/dL (74-106) 11/01/19 06:05 Hemoglobin A1c 6.0 % (3.8-5.6) H 10/29/19 06:15 Calcium 8.6 mg/dL (8.5-10.1) 11/01/19 06:05 Magnesium 2.2 mg/dL (1.8-2.4) 10/29/19 06:15 Total Bilirubin 0.4 mg/dL (0.2-1.0) 10/29/19 06:15 AST 22 U/L (15-37) 10/29/19 06:15 ALT 20 U/L (14-59) 10/29/19 06:15 Alkaline Phosphatase 121 U/L (46-116) H 10/29/19 06:15 Troponin I < 0.05 ng/Ml (<0.06) 10/28/19 11:05 C-Reactive Protein 0.18 mg/dL (0.0-0.3) 10/30/19 11:00 NT-Pro-B Natriuret Pep 272 pg/mL (<300) 10/29/19 06:15 Total Protein 8.6 g/dL (6.4-8.2) H 10/29/19 06:15 Albumin 3.6 g/dL (3.4-5.0) 10/29/19 06:15 Lipase 108 U/L (73-393) 10/29/19 06:15 Procalcitonin < 0.1 ng/mL 10/30/19 11:00 Urine Color Yellow (Yellow) 10/31/19 19: Urine Clarity Clear (Clear) 10/31/19 19: Urine pH 8.0 (5-8) 10/31/19 19: Ur Specific [place] 1.015 (1.005-1.025) 10/31/19 19:31 Urine Protein Negative mg/dL (Negative) 10/31/19 19: Urine Ketones Negative mg/dL (Negative) 10/31/19 19: Urine Blood Negative (Negative) 10/31/19 19: Urine Nitrite Negative (Negative) 10/31/19 19: Urine Bilirubin Negative (Negative) 10/31/19 19: Urine Urobilinogen 0.2 EU/dL (Up TO 0.2) 10/31/19 19: Ur Leukocyte Esterase Negative (Negative) 10/31/19 19: Urine Glucose Negative mg/dL (Negative) 10/31/19 19: Urine Opiates Screen Positive (Negative) A 10/29/19 12:10 Urine Methadone Screen Positive (Negative) A 10/29/19 12:10 Ur Barbiturates Screen Negative (Negative) 10/29/19 12:10 Ur Tricyclics Screen Positive (Negative) A 10/29/19 12:10 Ur Amphetamines Screen Negative (Negative) 10/29/19 12:10 U Benzodiazepines Scrn Negative (Negative) 10/29/19 12:10 Urine Cocaine Screen Negative (Negative) 10/29/19 12:10 Ur THC Screen Negative (Negative) 10/29/19 12:10 Ethyl Alcohol < 3.0 mg/dL (<3) 10/29/19 01:10 COVID-19 PCR Negative (Negative) 10/28/19 10:52 Nasopharyn COVID-19 PCR Not Applicable 10/28/19 10:52 Ref Test Perform Site [facility] hospital lab 10/28/19 10:52
[2019-11-01] MEDS: Methylnaltrexone 12 MG/0.6 ML VIAL 8 MG SC (11:22)
[2019-11-01 11:46] LABS: ALT 28 U/L (14-59); AST 18 U/L (15-37); Albumin 3.2 g/dL (3.4-5.0); Alkaline Phosphatase 84 U/L (46-116); Bilirubin, Direct 0.11 mg/dL (0.00-0.20); Bilirubin, Total 0.4 mg/dL (0.2-1.0); Total Protein 7.1 g/dL (6.4-8.2)
[2019-11-01] MEDS: Magnesium Citrate 300 ML BTL 150 ML PO (11:47)
[2019-11-01 11:51] VITALS: BP 121/79; PULSE 85; RESP 17; TEMP 36.1; O2SAT 96
--- NOTE | 2019-11-01 12:25 | PGE_ITS ---
Date of Service Date of service: 11/01/19 Time of Service: 12:26 Assessment and Plan Assessment and plan (1) Gallstones without obstruction of gallbladder: Status: Acute Assessment and plan: stones show no sign of obstruction or infections. Pt is not a candidate for sx. given her pulm issues She also has a long standing hx of narctic abuse and chronic pain and back pain. I would cont on symp care and avoid pork and fast foods/fried foods and gravy. Qualifiers: Cholelithiasis location: gallbladder Cholecystitis presence: without cholecystitis Qualified Code(s): K80.20 - Calculus of gallbladder without cholecystitis without obstruction (2) Biliary colic: Status: Acute Subjective Subjective Interval history since last seen: pt was c/o some mild RUQ painthat radiated to the back. US was done that shows a 8mm stone. But no signs of acute markel on US. repeat LFT's are nl CBC- shows elevated WBC, but this is thought to be do to long standing steroid use Objective Objective Clinical Data: Abnormal lab results 11/01/19 11/01/19 Range/Units 06:05 06:05 Sodium 131 L (136-145) mmol/L Albumin 3.2 L (3.4-5.0) g/dL Vital Signs Temperature 36.1 C L 11/01/19 11:51 Temperature Source Tympanic 11/01/19 11:51 Pulse 85 11/01/19 11:51 Pulse Rhythm Regular 11/01/19 11:37 Pulse 101 H 10/28/19 11:31 Respiratory Rate 17 11/01/19 11:51 Respiratory Effort Non-Labored 11/01/19 11:37 Respiratory Depth Normal 11/01/19 11:37 Respiratory Pattern Normal 11/01/19 11:37 Blood Pressure 121/79 11/01/19 11:51 Blood Pressure Mean 104 10/28/19 11:31 Blood Pressure Position Sitting 10/28/19 07:49 Pulse Oximetry 96 11/01/19 11:51 Oxygen Delivery Method Room Air 11/01/19 11:51 Oxygen Flow Rate 0 11/01/19 11:51 Pain Level 5 11/01/19 11:51 Intake & Output 10/31/19 11/01/19 11/01/19 23:59 11:59 23:59 Intake Total 750 / 890 240 / 240 Output Total 1200 / 2600 950 / 950 Balance -450 / -1710 -710 / -710 Weight 37.9 kg Intake: IV Oral 740 / 860 240 / 240 Output: Urine 1200 / 2600 950 / 950 Other: Urine Color Straw Straw Urine Appearance Clear Clear Urine Odor Normal Normal Comment found 350cc clear yellow urine in hat in toilet Voiding Methods Toilet Toilet Laboratory Results WBC 16.07 k/cumm (4.4-10.8) H 10/31/19 06:15 RBC 4.67 m/cumm (4.00-5.20) 10/31/19 06:15 Hgb 11.8 g/dL (12.0-15.5) L D 10/31/19 06:15 Hct 36.6 % (36.0-46.0) 10/31/19 06:15 MCV 78.4 fL (80-95) L 10/31/19 06:15 MCH 25.3 pg (27.0-33.0) L 10/31/19 06:15 MCHC 32.2 g/dL (32.0-36.0) 10/31/19 06:15 RDW 17.1 % (11.7-14.6) H 10/31/19 06:15 Plt Count 332 x1000/uL (130-400) D 10/31/19 06:15 MPV 9.8 fL (8.0-11.0) 10/31/19 06:15 Immature Gran % 0.2 % 10/31/19 06:15 Neutrophils % 65.6 10/31/19 06:15 Lymphocytes % 25.6 10/31/19 06:15 Monocytes % 7.8 10/31/19 06:15 Eosinophils % 0.7 10/31/19 06:15 Basophils % 0.1 10/31/19 06:15 Absolute Neutrophils 10.54 k/cumm (1.2-6.7) H 10/31/19 06:15 Absolute Lymphocytes 4.11 k/cumm (1.2-3.4) H 10/31/19 06:15 Absolute Monocytes 1.25 k/cumm (0.11-0.7) H 10/31/19 06:15 Absolute Eosinophils 0.11 k/cumm (0.0-0.7) 10/31/19 06:15 Absolute Basophils 0.02 k/cumm (0.0-0.2) 10/31/19 06:15 ESR 21 mm/hr (0-30) 10/30/19 11:00 PT Cancelled 10/28/19 08:27 INR Cancelled 10/28/19 08:27 APTT 26.1 sec (21.0-31.4) 10/28/19 08:20 D-Dimer 717 ng/mlFEU (<500) H 10/28/19 08:20 ABG Sample Site Cancelled 10/30/19 Unknown ABG pH Cancelled 10/30/19 Unknown ABG pCO2 Cancelled 10/30/19 Unknown ABG pO2 Cancelled 10/30/19 Unknown ABG HCO3 Cancelled 10/30/19 Unknown ABG Total CO2 Cancelled 10/30/19 Unknown ABG O2 Saturation Cancelled 10/30/19 Unknown ABG Base Excess Cancelled 10/30/19 Unknown Oxygen Liter Flow Cancelled 10/30/19 Unknown FiO2 Cancelled 10/30/19 Unknown Sodium 131 mmol/L (136-145) L 11/01/19 06:05 Potassium 4.7 mmol/L (3.5-5.1) D 11/01/19 06:05 Chloride 98 mmol/L (98-107) 11/01/19 06:05 Carbon Dioxide 28.2 mmol/L (21.0-32.0) 11/01/19 06:05 Anion Gap 4.8 mmol/L (3-11) 11/01/19 06:05 BUN 18 mg/dL (7-18) 11/01/19 06:05 Creatinine 0.71 mg/dL (0.55-1.02) 11/01/19 06:05 Estimated GFR/1.73 m2 >= 60.00 (mL/min/1.73m2) 11/01/19 06:05 Glucose 84 mg/dL (74-106) 11/01/19 06:05 Hemoglobin A1c 6.0 % (3.8-5.6) H 10/29/19 06:15 Calcium 8.6 mg/dL (8.5-10.1) 11/01/19 06:05 Magnesium 2.2 mg/dL (1.8-2.4) 10/29/19 06:15 Total Bilirubin 0.4 mg/dL (0.2-1.0) 11/01/19 06:05 Conjugated Bilirubin 0.11 mg/dL (0.00-0.20) 11/01/19 06:05 AST 18 U/L (15-37) 11/01/19 06:05 ALT 28 U/L (14-59) 11/01/19 06:05 Alkaline Phosphatase 84 U/L (46-116) 11/01/19 06:05 Troponin I < 0.05 ng/Ml (<0.06) 10/28/19 11:05 C-Reactive Protein 0.18 mg/dL (0.0-0.3) 10/30/19 11:00 NT-Pro-B Natriuret Pep 272 pg/mL (<300) 10/29/19 06:15 Total Protein 7.1 g/dL (6.4-8.2) 11/01/19 06:05 Albumin 3.2 g/dL (3.4-5.0) L 11/01/19 06:05 Lipase 108 U/L (73-393) 10/29/19 06:15 Procalcitonin < 0.1 ng/mL 10/30/19 11:00 Urine Color Yellow (Yellow) 10/31/19 19: Urine Clarity Clear (Clear) 10/31/19 19: Urine pH 8.0 (5-8) 10/31/19 19:31 Ur Specific [place] 1.015 (1.005-1.025) 10/31/19 19:31 Urine Protein Negative mg/dL (Negative) 10/31/19 19: Urine Ketones Negative mg/dL (Negative) 10/31/19 19: Urine Blood Negative (Negative) 10/31/19 19: Urine Nitrite Negative (Negative) 10/31/19 19: Urine Bilirubin Negative (Negative) 10/31/19 19: Urine Urobilinogen 0.2 EU/dL (Up TO 0.2) 10/31/19 19:31 Ur Leukocyte Esterase Negative (Negative) 10/31/19 19: Urine Glucose Negative mg/dL (Negative) 10/31/19 19:31 Urine Opiates Screen Positive (Negative) A 10/29/19 12:10 Urine Methadone Screen Positive (Negative) A 10/29/19 12:10 Ur Barbiturates Screen Negative (Negative) 10/29/19 12:10 Ur Tricyclics Screen Positive (Negative) A 10/29/19 12:10 Ur Amphetamines Screen Negative (Negative) 10/29/19 12:10 U Benzodiazepines Scrn Negative (Negative) 10/29/19 12:10 Urine Cocaine Screen Negative (Negative) 10/29/19 12:10 Ur THC Screen Negative (Negative) 10/29/19 12:10 Ethyl Alcohol < 3.0 mg/dL (<3) 10/29/19 01:10 COVID-19 PCR Negative (Negative) 10/28/19 10:52 Nasopharyn COVID-19 PCR Not Applicable 10/28/19 10:52 Ref Test Perform Site [facility] hospital lab 10/28/19 10:52
--- NOTE | 2019-11-01 13:43 | CHAPLAIN ---
Kira said she may be discharged today. They discovered she has some gallstones, but doesn't require surgery. She was relieved to learn that her wait loss was not caused by a serious medical condition. Kira is looking forward to going home.
--- NOTE | 2019-11-01 15:11 | CMPROGNOTE_ITS ---
- If Service Date Differs Date of service: 11/01/19 Time of Service: 15:11 Care Management Progress Note S/O: Kira was sitting up in her bed when CM met with her. She remains in good spirits and engaged readily with CM. Kira anticipates going home later today if she is able to have a bowel movement. Kira requested information re: mental health counseling and CM contacted her PCP office requesting an appointment with their MH provider. Kira was provided with a last dose letter for [facility] which she will need if discharged later today. A: Kira is a 64 year old female admitted to [facility] on 10/28/19 with B/L Pneumonia, COPD Exacerbation. P: Kira will likely return home when medically ready with a resumption of services. Kira would like assistance with buying Ensure Plus, if possible. CM requested that Nutrition Services provide her with a supply at discharge and this was accomplished. Other options are being explored by CM and by her provider's office staff. Kira will follow up with her PCP and discharge plan of care. CM will continue to support Kira and her discharge planning needs. cc:
--- NOTE | 2019-11-01 15:24 | DI.RAD_ITS ---
EXAM: 2D digital imaging was performed. CLINICAL HISTORY: abdominal pain. COMPARISON: CR,XR XR CHEST 2V PA LATERAL from 05/21/[address] ABDOMEN PELVIS W from 10/29/2019 CR XR RIBS ONLY RT from 10/31/2019 TECHNIQUE: Supine views of the abdomen was performed. FINDINGS: LUNG BASES: Basilar interstitial infiltrates are present and unchanged. BOWEL GAS PATTERN: Moderate amount of retained stool. No evidence to suggest obstruction. CALCIFICATIONS: Phleboliths are seen in the pelvis. OSSEOUS STRUCTURES: Right convex scoliosis. Multilevel degenerative changes. OTHER FINDINGS: None. IMPRESSION: Moderate amount of retained stool. DATA REPOSITORY: RADIATION DOSE DELIVERED:
[2019-11-01 15:32] VITALS: BP 116/73; PULSE 67; RESP 16; TEMP 37; O2SAT 95
--- NOTE | 2019-11-01 16:19 | W.PM.DS.N ---
Date of service: 11/01/19 Time of Service: 16:19 DS: Diagnosis Discharge Diagnosis (1) Gallstones without obstruction of gallbladder: Status: Acute (2) Biliary colic: Status: Acute Discharge Plan Disposition Patient Disposition: HOME Condition: Serious Discharge Details Chief Complaint: SOB Clinical Impression: Bilateral pneumonia Reason For Visit: B/L PNEUMONIA/COPD EXACERBATION Admit Date/Time: 10/29/19 11:21 Admit Provider: Vincenzo Michaud Attending Provider: Vincenzo Michaud Primary Care Provider: Kirsten Friedman ED Provider: Jelani Stevens Hospital Course Hospital Course: 64-year-old female smoker with a history of COPD, hepatitis C status post treatment, cirrhosis, type 2 diabetes mellitus, essential hypertension, chronic back pain secondary to spinal stenosis requiring chronic opioid therapy, methadone dependence, who was treated for community-acquired pneumonia September 18 through October 01, 2019 and completed a course of treatment with Cefpodoxime and azithromycin. She now presented to the emergency department on October 28, 2019 with complaints of shortness of breath and back pain. Upon evaluation in emergency department her oxygen saturation was 95% on room air and she was afebrile. She had an elevated d-dimer of 717 and a white blood cell count of 15,[address] scan of her chest with contrast and no PE was found. She was found to have scattered areas of consolidation and septal thickening particularly in the mid lower lung zones. Concern was raised by the emergency department that she had unresolved pneumonia. Patient was initially treated with ceftriaxone and azithromycin but then antibiotics were discontinued by Dr. Michaud who felt that her infiltrates had shown improvement over previous CT scan in September 2019. Blood cultures were obtained and eventually came back no growth. Sputum culture was obtained after admission and came back growing normal grace. Pro-inflammatory markers for acute bacterial infection were normal including procalcitonin and CRP, although her WBC remained elevated, probably d/t steroids. She was treated as a COPD exacerbation and initially given IV Solu-Medrol which was later switched to prednisone 40 mg daily. She was given her maintenance inhaled bronchodilators and no further antibiotics were given as it was felt that her inflammatory markers and a lack of fever suggested that there was no evidence for acute bacterial infection. Patient experienced nausea and vomiting in the emergency department that resolved with Zofran. However on the trend investigator of October 29, 2019 patient had another episode of nausea and vomiting with abdominal pain and coffee ground emesis. She was made n.p.o. and given IV fluids and placed on an IV PPI. The next morning surgery was consulted on the case and arrangements were made for her to undergo EGD and colonoscopy. EGD and colonoscopy was performed on October 30, [address] Kalie Crane. Colonoscopy was included in her work-up because of history of 40+ pound weight loss over the past year. EGD showed no duodenitis and no gastric ulcers although there was some mild atrophic gastritis involving the body and antrum. She has a small hiatal hernia but no gastric varices are seen. GE junction exhibited no masses and no evidence for Zhao's esophagitis and no inflammation or strictures. Colonoscopy was performed to the ileocecal valve and appendiceal orifice but prep was marginal with a few areas of thick stool with approximately 5% the colon wall obscured. No abnormalities were seen in the ascending, transverse, descending, sigmoid colon. There was less than a 1 cm sized polyp in the rectum which was removed. Patient had few small shallow ulcerations in the anal opening. Biopsies were obtained. Next day the patient's diet was advanced which she tolerated. CT scans of the abdomen and pelvis have been obtained prior to her EGD and colonoscopy and demonstrated no acute abdominal or pelvic process. No abdominal pelvic mass or adenopathy was seen. She has marked right convex scoliosis and severe degenerative changes of her spine. Because of continued complaints of right upper quadrant abdominal pain and right lower chest and back pain x-rays of her right ribs and thoracic spine and an ultrasound of her abdomen were obtained. These were obtained on October 31, 2019 and showed no fractures of the ribs and no spinal fractures. Again the T-spine x-ray showed degenerative changes and scoliosis. Ultrasound had to be delayed until the morning of November 01, 2019 because the patient had already eaten her lunch on October 30 and could not have the ultrasound. Ultrasound did confirm cholelithiasis but showed no sonographic evidence of acute cholecystitis. Dr. Pedroza consulted on her gallstones and feels that the patient is not a candidate for any surgical procedure d/t her COPD. She recommended symptomatic treatment and felt that the patients symptoms of pain were not d/t gallstones but d/t her chronic opioid use disorder. Ambulatory pulse oximetry was performed to assess her oxygen needs on October 31, 2019. She started on room air with a resting pulse oximetry 93%. She walked 25 feet and desaturated to 86% and was placed on 1 L of oxygen per nasal cannula and her SPO2 stayed at 87% with a heart rate of 101. Oxygen was titrated 2 L/min per nasal cannula for the rest of her walk and her SPO2 was maintained at 90% with a heart rate of 96 bpm. She recovered after 2 minutes and came back to baseline SPO2 of 93% on room air. Patient was set for home oxygen use at 2 LPM while ambulating or up out of bed. At rest she does not require oxygen. She will be discharged home on prednisone. She also desires an Rx for topical nicotine replacement. Home Meds and New Rx's Prescriptions: New nicotine 14 mg/24 hr Patch 24 Hour 14 mg transdermal DAILY Qty: 30 RF: 1 polyethylene glycol 3350 17 gram Powder In Packet 17 g PO DAILY PRN PRN (Reason: Constipation) Qty: 510 RF: 0 prednisone 20 mg Tablet 40 mg PO DAILY 4 Days Qty: 8 RF: 0 docusate sodium [Colace] 100 mg Capsule 100 mg PO TID PRN PRNQty: 30 RF: 0 Continued ipratropium-albuterol 0.5 mg-3 mg(2.5 mg base)/3 mL solution for nebulization 3 ml UPD Q6H PRN PRN (Reason: shortness of breath or wheezing) Qty: 90 RF: 3 cholecalciferol (vitamin D3) 2,000 unit capsule 2,000 unit PO DAILY RF: 0 Ensure Original 0.04-1.05 gram-kcal/mL liquid See Rx Instructions PO BID Qty: 237 RF: 3 methadone 10 mg/mL concentrate 75 mg PO DAILY RF: 0 (DME) compressor, for nebulizer device See Dose Instructions .ROUTE .MEDSUPPLY Qty: 1 RF: 0 polyethylene glycol 3350 [Miralax] 17 GM powder in packet 17 g PO DAILY PRNRF: 0 triamcinolone acetonide 15 GM cream 1 lorraine Topical TID PRNQty: 30 RF: 2 lisinopril 10 mg tablet 10 mg PO DAILY Qty: 90 RF: 3 albuterol sulfate [ProAir HFA] 90 mcg/actuation HFA aerosol inhaler 1 - 2 puff Inhalation Q6H PRN PRN (Reason: bronchospasm) Qty: 3 RF: 6 Breo Ellipta 200-25 mcg/dose blister with device 1 inh IH DAILY Qty: 60 RF: 3 mirtazapine 30 mg tablet 30 mg PO HS Qty: 30 RF: 11 bupropion HCl 300 mg tablet extended release 24 hr 300 mg PO DAILY Qty: 90 RF: 3 Hold Instructions: Pt Stopped/Never Started hydroxyzine pamoate [Vistaril] 50 mg capsule 50 mg PO BID PRN (Reason: itching) Qty: 60 RF: 1 gabapentin 300 mg capsule 300 mg PO TID Qty: 90 RF: 3 spironolactone 25 mg tablet 50 mg PO BID Qty: 120 RF: 3 magnesium chloride [Mag 64] 64 mg Tablet,Delayed Release (Dr/Ec) 128 mg PO BID Qty: 120 RF: 0 aspirin 81 mg Tablet,Delayed Release (Dr/Ec) 81 mg PO DAILY Qty: 30 RF: 0 furosemide 20 mg Tablet 20 mg PO BID RF: 0 Changed omeprazole 20 mg capsule,delayed release(DR/EC) 40 mg PO DAILY Qty: 60 RF: 0 Discontinued ibuprofen 200 MG capsule 400 mg PO q8h PRN PAIN Qty: 200 RF: 1 Discharge Instructions Instructions: Chronic Lung Disease and Infection Prevention (DC), Gallstones (DC) Stand Alone Forms: Nursing Discharge Form Referrals: Kalie Matthews MD [ [facility] STAFF PHYSICIAN] - 11/12/19 9:30 am Kirsten Friedman DO [Primary Care Provider] - 11/15/19 4:00 pm Activity:: Activity as Tolerated Equipment/Supplies:: No Equipment Needed Diet:: Carb Counting Discharge Orders Discharge Orders: Discharge Order (Routine); Ordered 11/01/19 Ordered By: Jelani Lopez Other Ambulatory Orders: Basic Metabolic Panel (Routine) Timeframe: 1 Week Location: None Selected Ordered By: Jelani Lopez Discharge Data Discharge Date/Time-TO BE ENTERED AT DEPARTURE: 11/01/19 17:09 DS: Summary Status at Discharge Functional status at discharge: independent ambulation Overall status at discharge: patient is progressing back to baseline Mental Status: mental status grossly normal Speech and Movement: speech and movement normal Mood: congruent mood Affect: normal affect Exam Psych Mental Status: mental status grossly normal Speech and Movement: speech and movement normal Mood: congruent mood Affect: normal affect DS: Data Vitals/I&O Vitals and I&O: Vital Signs Temperature 37 C 11/01/19 15:32 Temperature Source Tympanic 11/01/19 15:32 Pulse 67 11/01/19 15:32 Pulse Rhythm Regular 11/01/19 11:37 Pulse 101 H 10/28/19 11:31 Respiratory Rate 16 11/01/19 15:32 Respiratory Effort Non-Labored 11/01/19 11:37 Respiratory Depth Normal 11/01/19 11:37 Respiratory Pattern Normal 11/01/19 11:37 Blood Pressure 116/73 11/01/19 15:32 Blood Pressure Mean 104 10/28/19 11:31 Blood Pressure Position Sitting 10/28/19 07:49 Pulse Oximetry 95 11/01/19 15:32 Oxygen Delivery Method Room Air 11/01/19 15:32 Oxygen Flow Rate 0 11/01/19 15:32 Pain Level 5 11/01/19 11:51 Intake & Output 10/31/19 11/01/19 11/01/19 23:59 11:59 23:59 Intake Total 750 / 890 240 / 240 Output Total 1200 / 2600 950 / 950 Balance -450 / -1710 -710 / -710 Weight 37.9 kg Intake: IV Oral 740 / 860 240 / 240 Output: Urine 1200 / 2600 950 / 950 Other: Urine Color Straw Straw Urine Appearance Clear Clear Urine Odor Normal Normal Comment found 350cc clear yellow urine in hat in toilet Voiding Methods Toilet Toilet Data Completed and Pending Labs on day of discharge: Labs from last 24 hours 11/01/19 11/01/19 10/31/19 06:05 06:05 19:31 Sodium 131 L Potassium 4.7 D Chloride 98 Carbon Dioxide 28.2 Anion Gap 4.8 BUN 18 Creatinine 0.71 Estimated GFR/1.73 m2 >= 60.00 Glucose 84 Calcium 8.6 Total Bilirubin 0.4 Conjugated Bilirubin 0.11 AST 18 ALT 28 Alkaline Phosphatase 84 Total Protein 7.1 Albumin 3.2 L Urine Color Yellow Urine Clarity Clear Urine pH 8.0 Ur Specific [place] 1.015 Urine Protein Negative Urine Ketones Negative Urine Blood Negative Urine Nitrite Negative Urine Bilirubin Negative Urine Urobilinogen 0.2 Ur Leukocyte Esterase Negative Urine Glucose Negative Preliminary micro results at discharge 05/17/20 10:34 Blood Culture - Preliminary Blood NO GROWTH 96 HOURS 10/28/19 10:34 Blood Culture - Preliminary Blood NO GROWTH 96 HOURS 10/31/19 17:20 Sputum Culture - Preliminary Sputum Normal Grace [facility] Medical History (Updated 11/01/19 @ 12:28 by Nadiya Pedroza DO) Abnormal CT of the chest (Acute 03/18/17) stable 2mm nodule in AILYN Annual Chest CT for lung cancer screening recommended Acute renal failure (Resolved 04/29/14) a. creatinine bumped from 0.8 to 2.9 b. h/o renal failure 06/2013, presented with creatinine 5.4, which normalized with IV fluids Acute right-sided low back pain without sciatica (Acute 06/08/17) Pain rad thru buttock, but not down leg. Priformis Syndr? [ ] PT [ ] Hx Pain Clinic (Injctn #1 helped, #2 did not). Occasional relief from SOMA. Trial GABAPENTIN 06/09/18.in past Anxiety and depression (Chronic) Bilateral pneumonia (Acute 04/29/14) A. Bilateral lower lobes Biliary colic (Acute) Cirrhosis Cirrhosis of liver (Chronic) a. History of Hep C treatment. b. Liver biopsy 2005 positive for cirrhosis. 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 AFP levels every six months and ruq US every 12 months COPD (chronic obstructive pulmonary disease) (Chronic) Ongoing tobacco use. COPD (chronic obstructive pulmonary disease) (Chronic) Diabetes (Chronic) On Metformin. Diabetes mellitus DNI (do not intubate) (Acute) Essential hypertension (Chronic) Well maintained, meds tolerated. Hepatitis C HTN (hypertension) Hypertension (Chronic) Methadone dependence (Chronic) Neuropathy of right radial nerve (Chronic) a. recently had multiple falls and a hematoma around her humerus b. resolving Pleuritic chest pain (Acute 04/29/14) a. left sided POLST (Physician Orders for Life-Sustaining Treatment) (Acute) Polysubstance abuse (Chronic) a. h/o opiate overdose 06/2013 and 11/2013 b. recently started in [facility] program 03/13/2014 on oral methadone (missed her dose today) Shortness of breath (Acute) Spinal stenosis (Chronic) a. MRI 10/2009, showed L4-5 narrowing Tobacco abuse (Chronic) Tobacco use disorder Varices of esophagus determined by endoscopy (Acute) Surgical History Appendectomy (01/30/07) H/O: hysterectomy (Chronic) History of ankle surgery (Acute) left S/P bilateral breast lumpectomy (Acute) Family History Mother Myocardial infarction Stroke Sister Diabetes Myocardial infarction Sister Diabetes Father Diabetes Alcohol abuse Myocardial infarction Social History Smoking/Tobacco Use Status: Current every day Tobacco Type: cigarettes Smoking packs per day: 1 Smoking cigarettes per day: 20.0 Years smoked: 40 Smoking pack-years: 40.00 Quit status: considering quitting Counseling given: other Details: pt feels motivated and states she doesnt enjoy them now Alcohol Intake: never Drug use: Current Sobriety Substance use type: heroin Details: on [facility] Adopted: No Household members: none Housing: house Communication Needs: None Pets and animals: Yes Pets and animals: cat(s) What is your relationship status?: Panel score (0-1 are the most socially isolated patients): 0 What type of physical activity do you participate in: none Seatbelt use: always Drive intox or ride w/intox starting gate driver: No Working smoke detector in home: Yes Fire extinguisher in home: Yes Carbon monox detector in home: Yes Do you feel safe at home: Yes Do you feel safe in your relationship?: Yes
--- NOTE | 2019-11-02 17:13 | INDS_ITS ---
Date of service: 11/02/19 PT Notes Visit Reasons: B/L PNEUMONIA/COPD EXACERBATION Inpatient Physical Therapy Discharge Summary Dates: 11/02/2019 Dates of Service: 10/29/2019 through 11/01/2019 Referring Doctor: Vincenzo Michaud MD PT Orders: PT CONSULT: Limited ability Precautions: Fall. Standard. Activity as tolerated. Patient Profile/Admitting Diagnosis: Patient is a 64-year-old female who presented to the ED via EMS on 10/28/2019 with chief complaints of shortness of breath, back pain, and nausea. Patient is diagnosed with COPD exacerbation, community-acquired pneumonia, and diabetes mellitus. On 10/29/2019 patient had an additional diagnosis of abdominal pain and fluid overload. Patient tested negative for COVID-19 as of 10/29/2019. PMHX: Medical History Abnormal CT of the chest (Acute 03/18/17) stable 2mm nodule in AILYN Annual Chest CT for lung cancer screening recommended Acute renal failure (Resolved 04/29/14) a. creatinine bumped from 0.8 to 2.9 b. h/o renal failure 06/2013, presented with creatinine 5.4, which normalized with IV fluids Acute right-sided low back pain without sciatica (Acute 06/08/17) Pain rad thru buttock, but not down leg. Priformis Syndr? [ ] PT [ ] Hx Pain Clinic (Injctn #1 helped, #2 did not). Occasional relief from SOMA. Trial GABAPENTIN .in past Anxiety and depression (Chronic) Bilateral pneumonia (Acute 04/29/14) A. Bilateral lower lobes Cirrhosis Cirrhosis of liver (Chronic) a. History of Hep C treatment. b. Liver biopsy 2005 positive for cirrhosis. 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 AFP levels every six months and ruq US every 12 months COPD (chronic obstructive pulmonary disease) (Chronic) Ongoing tobacco use. COPD (chronic obstructive pulmonary disease) (Chronic) Diabetes (Chronic) On Metformin. Diabetes mellitus DNI (do not intubate) (Acute) Essential hypertension (Chronic) Well maintained, meds tolerated. Hepatitis C HTN (hypertension) Hypertension (Chronic) Methadone dependence (Chronic) Neuropathy of right radial nerve (Chronic) a. recently had multiple falls and a hematoma around her humerus b. resolving Pleuritic chest pain (Acute 04/29/14) a. left sided POLST (Physician Orders for Life-Sustaining Treatment) (Acute) Polysubstance abuse (Chronic) a. h/o opiate overdose 06/2013 and 11/2013 b. recently started in [facility] program 03/13/2014 on oral methadone (missed her dose today) Shortness of breath (Acute) Spinal stenosis (Chronic) a. MRI 10/2009, showed L4-5 narrowing Tobacco abuse (Chronic) Tobacco use disorder Surgical History Appendectomy (01/30/07) H/O: hysterectomy (Chronic) History of ankle surgery (Acute) left S/P bilateral breast lumpectomy (Acute) Social History/Home Situation: Patient lives alone in a mobile home with 4 steps to enter. She states one rail was broken but then she is got a eloy from [facility] to do some repairs in her house as well as her water piping system. She uses a single-point cane for outdoor ambulation at baseline. She gets Meals on Wheels. She has a friend who is able to help with her transportation for grocery shopping and doctor's appointments. Equipment Owned/DME: Single-point cane Subjective: Patient reports how much she is looking forward to going home today. She is agreeable to a PT session. Objective: General Observation: Electric heating pad over abdominal area. Asthenic. Thoracic kyphoscoliosis. Mental Status: Alert and oriented x4 Pain: 1/10 abdominal pain at rest and with movement ROM: Right Upper Extremity: Shoulder Flexion allows up to 90 degrees. Shoulder abduction allows up to 90 degrees. Elbow flexion WFL. Wrist flexion WFL. Opening and closing of hand WFL. Left Upper Extremity: Shoulder Flexion allows up to 90 degrees. Shoulder abduction allows up to 90 degrees. Elbow flexion WFL. Wrist flexion WFL. Opening and closing of hand WFL. Right Lower Extremity: Hip flexion WFL. Hip abduction WFL. Knee flexion WFL. Ankle dorsiflexion WFL. Ankle plantarflexion WFL. Left Lower Extremity: Hip flexion WFL. Hip abduction WFL. Knee flexion WFL. Ankle dorsiflexion WFL. Ankle plantarflexion WFL. Strength: Right Upper Extremity: Shoulder flexors 3-/5. Shoulder abductors 3-/5. Elbow flexors 4/5. Elbow extensors 4/5. Wind Turbine Installer strong. Left Upper Extremity: Shoulder flexors 3-/5. Shoulder abductors 3-/5. Elbow flexors 4/5. Elbow extensors 4/5. Wind Turbine Installer strong. Right Lower Extremity: Hip flexors 4/5. Hip abductors 4/5. Knee flexors 4/5. Knee extensors 4/5. Ankle dorsiflexors 4/5. Ankle plantarflexors 4/5. Left Lower Extremity: Hip flexors 4/5. Hip abductors 4/5. Knee flexors 4/5. Knee extensors 4/5. Ankle dorsiflexors 4/5. Ankle plantarflexors 4/5. Sensation: Intact as to pain and pressure on bilateral lower extremities. Bed Mobility/Transfers: Rolling independent Supine to sit independent Sit to supine independent Sit to stand independent Stand to sit independent Bed to chair independent Chair to bed independent Gait: Patient was able to tolerate level surface ambulation of 300 feet using no assistive device with supervision on 2 L of oxygen per minute. Increased david. Increased step length and step height. THERA EX: Patient tolerated seated level exercises consisting of long arc quads x10. She also was able to tolerate standing level exercises consisting of hip extension times stand mini squats x10 and high marching in place x10 with intermittent pursed lip breathing after each exercise with good response. Balance: Static Sitting: Normal Dynamic Sitting: Normal Static Standing: Good Dynamic Standing: Good Assessment: On initial evaluation, patient demonstrated generalized weakness, need for assistive device for mobility ADL performance, unsteadiness on feet, and difficulty with walking which increased risk for falls. She will require skilled physical therapy services in order to achieve goals established below. With skilled physical therapy services patient was able to achieve goals listed below prior to discharge to home. Patient continues to require supervision with long distance ambulation and with stair negotiation and was advised to make use of the walker for all outdoor activities. Goals: Goals X1 week 1. Supine-Sit independent MET 2. Sit-Supine independent MET 3. Sit-Stand independent MET 4. Stand-Sit independent MET 5. Bed-Chair independent MET 6. Chair-Bed independent MET 7. Independent gait on level surface with use of least restrictive device for at least 300 feet without report of pain nor dyspnea NOT MET 8. Independent stair negotiation while holding onto bilateral rails for at least 10 steps without report of pain nor dyspnea NOT MET 9. Independent with home exercise program MET 10. Good static and dynamic standing balance/tolerance MET DISCHARGE RECOMMENDATIONS: Patient will benefit from a front wheel walker to maximize independence at home. Patient will benefit from home health PT services in order to progress mobility level using least restrictive assistive ambulatory device, assess home safety, identify additional equipment needs, and establish a functional maintenance program that will increase ability of patient to remain at home. TREATMENT CODE/TIME: NC. Thank you very much for this referral. Lisa Baum PT, DPT, CLT [facility] [place], [place]
[2019-11-13 16:37] LABS: Site Right Radial
== END 2019-11-01 17:09 | disposition home or self-care (01) | DRG 191 ==
LOC: ER 11:08 → MS 12:06
PROVIDERS: Family Medicine; Internal Medicine; Surgery; Admitting Provider Family Medicine; Emergency Provider Physician Assistant; PCP Student in an Organized Health Care Education/Training Program; Visit Provider Family Medicine
PROC: 0DB98ZX Excision of Duodenum, Via Natural or Artificial Opening Endoscopic, Diagnostic (ICD-10-PCS; principal; 2019-10-30 11:30)
DX: J44.1 Chronic obstructive pulmonary disease with (acute) exacerbation (principal); K92.0 Hematemesis; Z68.1 Body mass index [BMI] 19.9 or less, adult; R64 Cachexia; E87.1 Hypo-osmolality and hyponatremia; K62.6 Ulcer of anus and rectum; R63.4 Abnormal weight loss; Z72.0 Tobacco use; R79.1 Abnormal coagulation profile; M41.9 Scoliosis, unspecified; G89.29 Other chronic pain; Z79.891 Long term (current) use of opiate analgesic; M54.9 Dorsalgia, unspecified; M48.061 Spinal stenosis, lumbar region without neurogenic claudication; Z51.5 Encounter for palliative care; Z71.3 Dietary counseling and surveillance; E87.70 Fluid overload, unspecified; D12.8 Benign neoplasm of rectum; K29.60 Other gastritis without bleeding; K44.9 Diaphragmatic hernia without obstruction or gangrene; K52.9 Noninfective gastroenteritis and colitis, unspecified; K80.50 Calculus of bile duct without cholangitis or cholecystitis without obstruction; K74.69 Other cirrhosis of liver; B19.20 Unspecified viral hepatitis C without hepatic coma; E11.9 Type 2 diabetes mellitus without complications; K21.9 Gastro-esophageal reflux disease without esophagitis; Z87.19 Personal history of other diseases of the digestive system; R09.02 Hypoxemia; K59.03 Drug induced constipation; T40.2X5A Adverse effect of other opioids, initial encounter; Z03.818 Encounter for observation for suspected exposure to other biological agents ruled out; F41.8 Other specified anxiety disorders
CPT/HCPCS: 36415; 43239; 45380; 71275; 80048; 80053; 80076; 80307; 82805; 83690; 84145; 85652; 87040; 88305; 93005; 94618; 94640; 96365; 96368; 96375; 96376; 97110; 97162; 97530; 99220; 99222; 99231; 99232; 99233; 99238; 99252; 99254; 99285; J1650; NC; U0003; 71100; 72072; 74019; 74177; 76700; 80320; 81003; 83036; 83735; 83880; 84484; 85014; 85018; 85025; 85379; 85610; 85730; 86140; 87070; 87205; 93010; 94010; 99239; G0378; J0456; J0696; J2001; J2270; J2405; J2765; J3490; J7512; Q9967

== ENCOUNTER 2020-01-23 10:43 | Emergency (ER) | payer MEDICARE, MEDICAID, SELFPAY ==
[2020-01-23] VITALS (21 sets, daily range): BP systolic 149; BP diastolic 99; PULSE 91–99; RESP 4–24; TEMP 36.8; O2SAT 93–100
--- NOTE | 2020-01-23 10:40 | ED.GENADUL_ITS ---
Discharge Plan Disposition Patient Disposition: HOME Condition: Stable Discharge Details Chief Complaint: SOB Clinical Impression: Acute exacerbation of chronic obstructive pulmonary disease, Tobacco abuse Primary Care Provider: Kirsten Friedman ED Provider: Libra Jarrell Home Meds and New Rx's Prescriptions: New prednisone 20 mg tablet See Rx Instructions .ROUTE .COMPLEX Qty: 12 RF: 0 doxycycline hyclate 100 mg tablet 100 mg PO BID 7 Days Qty: 14 RF: 0 amoxicillin-pot clavulanate [Augmentin] 875-125 mg tablet 1 tab PO BID 10 Days Qty: 20 RF: 0 Continued ipratropium-albuterol 0.5 mg-3 mg(2.5 mg base)/3 mL solution for nebulization 3 ml UPD Q6H PRN PRN (Reason: shortness of breath or wheezing) Qty: 90 RF: 3 cholecalciferol (vitamin D3) 2,000 unit capsule 2,000 unit PO DAILY RF: 0 Ensure Original 0.04-1.05 gram-kcal/mL liquid See Rx Instructions PO BID Qty: 237 RF: 3 haloperidol lactate 2 mg/mL concentrate 0.5 mg PO TID MDD 1.5 mg PRN (Reason: nausea and vomiting) Qty: 15 RF: 0 methadone 10 mg/mL concentrate 75 mg PO DAILY RF: 0 (DME) compressor, for nebulizer device See Dose Instructions .ROUTE .MEDSUPPLY Qty: 1 RF: 0 ondansetron 4 mg tablet,disintegrating 4 mg PO Q8H PRN (Reason: nausea and vomiting) Qty: 30 RF: 3 hydroxyzine HCl 50 mg tablet 50 mg PO QID PRN (Reason: itching/anxiety) Qty: 60 RF: 3 omeprazole 20 mg capsule,delayed release(DR/EC) 40 mg PO DAILY Qty: 60 RF: 3 prednisone 20 mg tablet 40 mg PO DAILY Qty: 8 RF: 0 triamcinolone acetonide 15 GM cream 1 lorraine Topical TID PRNQty: 30 RF: 2 lisinopril 10 mg tablet 10 mg PO DAILY Qty: 90 RF: 3 Breo Ellipta 200-25 mcg/dose blister with device 1 inh IH DAILY Qty: 60 RF: 3 mirtazapine 30 mg tablet 30 mg PO HS Qty: 30 RF: 11 bupropion HCl 300 mg tablet extended release 24 hr 300 mg PO DAILY Qty: 90 RF: 3 Hold Instructions: Pt Stopped/Never Started gabapentin 300 mg capsule 300 mg PO TID Qty: 90 RF: 3 spironolactone 25 mg tablet 50 mg PO BID Qty: 120 RF: 3 scopolamine base 1 mg over 3 days patch 3 day 1 patch TD Q3D Qty: 10 RF: 1 aspirin 81 mg Tablet,Delayed Release (Dr/Ec) 81 mg PO DAILY Qty: 30 RF: 0 furosemide 20 mg Tablet 40 mg PO BID RF: 0 nicotine 14 mg/24 hr Patch 24 Hour 14 mg transdermal DAILY Qty: 30 RF: 1 polyethylene glycol 3350 17 gram Powder In Packet 17 g PO DAILY PRN PRN (Reason: Constipation) Qty: 510 RF: 0 docusate sodium [Colace] 100 mg Capsule 100 mg PO TID PRN PRNQty: 30 RF: 0 albuterol sulfate [Ventolin HFA] 90 mcg/actuation HFA aerosol inhaler 2 puff INHALATION BID RF: 0 magnesium chloride [Mag 64] 64 mg tablet,delayed release (DR/EC) 500 mg PO BID RF: 0 Refresh Tears 0.5 % Drops 1 drp ophthalmic (eye) DIRECTED RF: 0 Discharge Instructions Instructions: COPD (Chronic Obstructive Pulmonary Disease) (ED) Additional Instructions: Use your inhalers that you have at home as needed and directed for shortness of breath, wheezing or cough. Take the steroids and antibiotics until finished. You will be taking both the Augmentin and doxycycline 1 tab twice daily. Call your primary care doctor's office today to schedule a follow-up appointment for reevaluation within the next week. Return immediately to the emergency department if you develop any worsening or new concerning symptoms. Discharge Data Discharge Date/Time-TO BE ENTERED AT DEPARTURE: 01/23/20 14:30 Discharge Physician: Libra Jarrell Medical Decision Making 3091 -- 64-year-old female with a history of chronic tobacco smoking, COPD, cirrhosis, hypertension, diabetes, anxiety and depression presents for shortness of breath and upper and mid back pain for the past 3 days. EKG notes a rate of 97, sinus, less than [address] elevation in lead II. No acute ST depression. Patient has wheezing and rhonchi throughout. Oxygen saturation 94% on room air which is improved from her baseline she states. Differential diagnosis includes pneumonia, acute COPD exacerbation, PE, ACS, etc. Will place an IV, bolus IV fluids, screening labs, portable chest x-ray, DuoNeb and steroids. Will also obtain CT chest to rule out PE if no acute findings on portable chest x-ray and labs. Portable chest x-ray notes chronic fibrotic changes but no other acute disease. 1330 -- Labs reviewed. White blood cell count 18 which could be attributed to recent steroids. Troponin negative. Prior to going to CT, patient stated she felt much better is requesting to go home. Vitals within normal limits. Oxygen saturation 95% on room air. Discussed with patient with her back pain, would recommend further evaluation with a CT chest to rule out dissection or PE but she declined stating she feels much better prefer to go home. The risks of and disability due to missing a serious pathology explained and patient understands and is still requesting to leave. She demonstrates capacity to make decisions. As she is still current smoker, will also treat with antibiotics. She was given a prescription for steroids. Advised to follow up with the primary care doctor for re-evaluation. Usual and customary return precautions given prior to discharge. Medical Records Medical records reviewed: Yes I reviewed the patient's medical records. Imaging Data Radiologic Study: Radiologist's impression: XR PORTABLE CHEST AP CLINICAL HISTORY: shortness of breath, r/o acute disease TECHNIQUE: COMPARISON: CR,XR XR CHEST 2V PA LATERAL from 05/21/[address] ABDOMEN PELVIS W from 10/29/2019 CR XR RIBS ONLY RT from 10/31/2019 FINDINGS: There are severe pulmonary fibrotic changes as noted on prior chest examinations. The findings appear stable, no focal acute consolidation seen. No gross pleural effusion on this frontal film. Cardiac size is within normal limits. IMPRESSION: Severe chronic fibrotic changes, no gross acute consolidation. Lab Data Lab results reviewed: Yes I reviewed the patient's lab results. Labs: Laboratory Tests Range/Units 01/23/20 01/23/20 01/23/20 11:00 11:00 11:00 WBC (4.4-10.8) 10^3/uL 18.17 H RBC (3.93-5.22) 10^6/uL 5.51 H Hgb (11.2-15.7) g/dL 14.8 Hct (36.0-46.0) % 46.6 H MCV (80-95) fL 84.6 MCH (27.0-33.0) pg 26.9 L MCHC (32.0-36.0) % 31.8 L RDW (11.7-14.6) % 15.9 H Plt Count (130-400) 10^3/uL 309 MPV (8.0-11.0) fL 10.2 Immature Gran % 0.4 Neutrophils % 81.4 Lymphocytes % 11.7 Monocytes % 5.6 Eosinophils % 0.7 Basophils % 0.2 Absolute Neutrophils (1.2-6.7) 10^3/uL 14.79 H Absolute Lymphocytes (1.2-3.4) 10^3/uL 2.13 Absolute Monocytes (0.1-0.8) 10^3/uL 1.02 H Absolute Eosinophils (0.0-0.7) 10^3/uL 0.13 Absolute Basophils (0.0-0.2) 10^3/uL 0.04 PT (9.3-11.0) sec 10.6 INR (0.9-1.1) 1.1 APTT (21.0-31.4) sec 22.2 Sodium (136-145) mmol/L 132 L Potassium (3.5-5.1) mmol/L 4.1 Chloride (98-107) mmol/L 94 L Carbon Dioxide (21.0-32.0) mmol/L 34.4 H Anion Gap (3-11) mmol/L 3.6 BUN (7-18) mg/dL 25 H Creatinine (0.55-1.02) mg/dL 0.67 Estimated GFR/1.73 m2 (mL/min/1.73m2) >= 60.00 Glucose (74-106) mg/dL 80 Calcium (8.5-10.1) mg/dL 9.0 Magnesium (1.8-2.4) mg/dL 1.8 Total Bilirubin (0.2-1.0) mg/dL 0.5 AST (15-37) U/L 25 ALT (14-59) U/L 37 Alkaline Phosphatase (46-116) U/L 111 Troponin I (<0.06) ng/mL < 0.05 Total Protein (6.4-8.2) g/dL 8.1 Albumin (3.4-5.0) g/dL 3.6 ECG Data Attestation: I personally reviewed and interpreted this ECG (s) as follows: Interpretation: Meter 97, sinus, [address] elevation in lead II. Significant artifact. No ST depression. AL 148. QRS 61. QTc 461. HPI General Mode of arrival: ambulatory . Date/Time Provider Initiated Documentation: 01/23/20 11:05 . Limitations to Documentation: no limitations . Information obtained by: patient . HPI Narrative: Patient is a 64-year-old female with a history of chronic tobacco smoking, COPD, cirrhosis, anxiety, depression, diabetes who presents for shortness of breath and mid back pain for the past 3 days. She discussed with her primary care office and they called in prescriptions for p.o. steroids and 3 inhalers but she denies any relief with this. She has 2 L of home oxygen that she uses as needed. She states she slept with oxygen overnight without significant relief. She admits to decreased appetite for years and that she has lost approximately 90 pounds over the last few years. She denies fever, cough, chest pain, nausea, vomiting, abdominal pain. Related Data Home Medications Medication Instructions Recorded Confirmed triamcinolone acetonide 1 lorraine TOPICAL TID PRN #30 gm 09/07/17 01/23/20 compressor, for nebulizer #1 each 09/28/18 10/24/19 methadone 10 mg/mL oral concentrate 75 mg PO DAILY ml 09/28/18 01/23/20 cholecalciferol (vitamin D3) 50 2,000 unit PO DAILY 01/24/19 01/23/20 mcg (2,000 unit) capsule ipratropium 0.5 mg-albuterol 3 mg 3 ml UPD Q6H PRN PRN #90 ml 01/24/19 01/23/20 (2.5 mg base)/3 mL nebulization soln lisinopril 10 mg tablet 10 mg PO DAILY #90 tab-cap 03/22/19 01/23/20 aspirin 81 mg PO DAILY #30 tab 05/24/19 01/23/20 fluticasone furoate 200 1 inh IH DAILY #60 each 07/06/19 01/23/20 mcg-vilanterol 25 mcg/dose inhalation powder mirtazapine 30 mg tablet 30 mg PO HS #30 tab-cap 07/26/19 01/23/20 bupropion HCl 300 mg 24 hr tablet, 300 mg PO DAILY #90 tab 08/16/19 01/23/20 extended release food supplemt, lactose-reduced See Rx Instructions PO BID #237 ml 08/19/19 01/23/20 0.04 gram-1.05 kcal/mL oral liquid furosemide 40 mg PO BID 09/19/19 01/23/20 gabapentin 300 mg capsule 300 mg PO TID #90 cap 10/01/19 01/23/20 spironolactone 25 mg tablet 50 mg PO BID #120 tab 10/16/19 01/23/20 docusate sodium [Colace] 100 mg PO TID PRN PRN #30 cap 11/01/19 01/23/20 nicotine 14 mg TRANSDERMAL DAILY #30 ea 11/01/19 01/23/20 polyethylene glycol 3350 17 g PO DAILY PRN PRN #510 g 11/01/19 01/23/20 haloperidol lactate 2 mg/mL oral 0.5 mg PO TID PRN #15 ml MDD 1.5 mg 11/30/19 11/30/19 concentrate scopolamine base 1 mg over 3 days 1 patch TD Q3D #10 each 12/12/19 01/23/20 transdermal patch hydroxyzine HCl 50 mg tablet 50 mg PO QID PRN #60 tab 01/18/20 01/23/20 omeprazole 20 mg capsule,delayed 40 mg PO DAILY #60 cap 01/18/20 01/23/20 release ondansetron 4 mg disintegrating 4 mg PO Q8H PRN #30 tab 01/18/20 01/23/20 tablet prednisone 20 mg tablet 40 mg PO DAILY #8 tab 01/18/20 01/23/20 Refresh Tears 1 drp OPHTHALMIC (EYE) DIRECTED 01/23/20 01/23/20 albuterol sulfate [Ventolin HFA] 2 puff INHALATION BID 01/23/20 01/23/20 amoxicillin-pot clavulanate 1 tab PO BID 10 Days #20 tab 01/23/20 [Augmentin] doxycycline hyclate 100 mg PO BID 7 Days #14 tab 01/23/20 magnesium chloride [Mag 64] 500 mg PO BID 01/23/20 01/23/20 prednisone See Rx Instructions .ROUTE 01/23/20 .COMPLEX #12 tab Previous Rx's Medication Instructions Recorded compressor, for nebulizer #1 each 09/28/18 ipratropium 0.5 mg-albuterol 3 mg 3 ml UPD Q6H PRN PRN #90 ml 01/24/19 (2.5 mg base)/3 mL nebulization soln lisinopril 10 mg tablet 10 mg PO DAILY #90 tab-cap 03/22/19 aspirin 81 mg PO DAILY #30 tab 05/24/19 fluticasone furoate 200 1 inh IH DAILY #60 each 07/06/19 mcg-vilanterol 25 mcg/dose inhalation powder mirtazapine 30 mg tablet 30 mg PO HS #30 tab-cap 07/26/19 bupropion HCl 300 mg 24 hr tablet, 300 mg PO DAILY #90 tab 08/16/19 extended release food supplemt, lactose-reduced See Rx Instructions PO BID #237 ml 08/19/19 0.04 gram-1.05 kcal/mL oral liquid gabapentin 300 mg capsule 300 mg PO TID #90 cap 10/01/19 spironolactone 25 mg tablet 50 mg PO BID #120 tab 10/16/19 docusate sodium [Colace] 100 mg PO TID PRN PRN #30 cap 11/01/19 nicotine 14 mg TRANSDERMAL DAILY #30 ea 11/01/19 polyethylene glycol 3350 17 g PO DAILY PRN PRN #510 g 11/01/19 haloperidol lactate 2 mg/mL oral 0.5 mg PO TID PRN #15 ml MDD 1.5 mg 11/30/19 concentrate scopolamine base 1 mg over 3 days 1 patch TD Q3D #10 each 12/12/19 transdermal patch hydroxyzine HCl 50 mg tablet 50 mg PO QID PRN #60 tab 01/18/20 omeprazole 20 mg capsule,delayed 40 mg PO DAILY #60 cap 01/18/20 release ondansetron 4 mg disintegrating 4 mg PO Q8H PRN #30 tab 01/18/20 tablet prednisone 20 mg tablet 40 mg PO DAILY #8 tab 01/18/20 amoxicillin-pot clavulanate 1 tab PO BID 10 Days #20 tab 01/23/20 [Augmentin] doxycycline hyclate 100 mg PO BID 7 Days #14 tab 01/23/20 prednisone See Rx Instructions .ROUTE 01/23/20 .COMPLEX #12 tab Allergies Allergy/AdvReac Type Severity Reaction Status Date / Time gabapentin AdvReac Severe Nausea Verified 01/23/20 10:52 metaxalone [Metaxalone] AdvReac Severe nausea Verified 01/23/20 10:52 diclofenac [Diclofenac] AdvReac Intermediate contraindicated Verified 01/23/20 10:52 w/ pt's liver promethazine AdvReac Mild disoriented Verified 01/23/20 10:52 prochlorperazine AdvReac Unknown disoriented Verified 01/23/20 10:52 General JANNIE: 2 Review of Systems All systems reviewed & are unremarkable except as noted in HPI and below Constitutional Constitutional: Reports as per HPI, Denies chills and Denies fever(s) Eyes Eyes: Denies blurry vision ENT Ears, Nose, Mouth, and Throat: Denies dizziness, Denies sore throat and Denies throat swelling Cardiovascular Cardiovascular: Denies chest pain and Reports dyspnea Respiratory Respiratory: Denies cough and Reports dyspnea Gastrointestinal Gastrointestinal: Denies abdominal pain, Denies diarrhea and Denies vomiting Genitourinary Genitourinary: Denies hematuria and Denies dysuria Musculoskeletal Musculoskeletal: Reports back pain and Denies numbness Integumentary/Breasts Skin/Breast: Denies lesions and Denies rash Neurologic Neurologic: Denies dizziness, Denies localized weakness and Denies numbness Allergic/Immunologic Allergic/Immunologic: Denies throat swelling [facility] Medical History (Updated 01/23/20 @ 14:12 by Libra Jarrell DO) Abnormal CT of the chest (Acute 03/18/17) stable 2mm nodule in AILYN Annual Chest CT for lung cancer screening recommended Acute renal failure (Resolved 04/29/14) a. creatinine bumped from 0.8 to 2.9 b. h/o renal failure 06/2013, presented with creatinine 5.4, which normalized with IV fluids Acute right-sided low back pain without sciatica (Acute 06/08/17) Pain rad thru buttock, but not down leg. Priformis Syndr? [ ] PT [ ] Hx Pain Clinic (Injctn #1 helped, #2 did not). Occasional relief from SOMA. Trial GABAPENTIN 06/09/18.in past Anxiety and depression (Chronic) Bilateral pneumonia (Acute 04/29/14) A. Bilateral lower lobes Biliary colic (Inactive) Cirrhosis Cirrhosis of liver (Chronic) a. History of Hep C treatment. b. Liver biopsy 2006 positive for cirrhosis. 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 AFP levels every six months and ruq US every 12 months COPD (chronic obstructive pulmonary disease) (Chronic) Ongoing tobacco use. COPD (chronic obstructive pulmonary disease) (Chronic) Diabetes (Chronic) On Metformin. Diabetes mellitus DNI (do not intubate) (Acute) Essential hypertension (Chronic) Well maintained, meds tolerated. Hepatitis C HTN (hypertension) Hypertension (Chronic) Methadone dependence (Chronic) Nausea & vomiting (Acute) Neuropathy of right radial nerve (Chronic) a. recently had multiple falls and a hematoma around her humerus b. resolving Pleuritic chest pain (Acute 04/29/14) a. left sided POLST (Physician Orders for Life-Sustaining Treatment) (Acute) Polysubstance abuse (Chronic) a. h/o opiate overdose 06/2013 and 11/2013 b. recently started in [facility] program 03/13/2014 on oral methadone (missed her dose today) Shortness of breath (Acute) Spinal stenosis (Chronic) a. MRI 10/2009, showed L4-5 narrowing Tobacco abuse (Chronic) Tobacco use disorder Varices of esophagus determined by endoscopy (Acute) Surgical History Appendectomy (01/30/07) H/O: hysterectomy (Chronic) History of ankle surgery (Acute) left S/P bilateral breast lumpectomy (Acute) Family History Mother Myocardial infarction Stroke Sister Diabetes Myocardial infarction Sister Diabetes Father Diabetes Alcohol abuse Myocardial infarction Social History Smoking/Tobacco Use Status: Current every day Tobacco Type: cigarettes Smoking packs per day: 1 Smoking cigarettes per day: 20.0 Years smoked: 40 Smoking pack- years: 40.00 Quit status: considering quitting Counseling given: other Details: pt feels motivated and states she doesnt enjoy them now Alcohol Intake: never Drug use: Current Sobriety Substance use type: heroin Details: on [facility] clinic Adopted: No Household members: none Housing: house Communication Needs: None Pets and animals: Yes Pets and animals: cat(s) What is your relationship status?: Panel score (0-1 are the most socially isolated patients): 0 What type of physical activity do you participate in: none Seatbelt use: always 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 Working smoke detector in home: Yes Fire extinguisher in home: Yes Carbon monox detector in home: Yes Do you feel safe at home: Yes Do you feel safe in your relationship?: Yes Exam Const General: cooperative and no acute distress Nutritional Appearance: cachectic Orientation: alert, awake and oriented x3 HENMT Head: normal to inspection Face and sinus: normal facial exam Mouth: mucous membranes dry Eyes General: appearance normal, both eyes and all related structures Pupils: PERRL EOM: EOM intact bilaterally Neck Neck: normal visual inspection and No submandibular swelling Lymphatic: no lymphadenopathy noted Chest Chest: normal inspection of the chest and no tenderness Resp Effort & Inspection: normal respiratory effort and able to speak in complete sentences Auscultation: rhonchi upper bilaterally and lower bilaterally and wheezes scattered wheezes Cardio Rate: regular rate Rhythm: regular rhythm GI Inspection: normal to inspection Palpation: soft, not firm, not rigid and nontender Auscultation: normal bowel sounds Back/Spine/Pelvis Thoracic/Lumbar Spine: thoracic and lumbar spine normal to inspection Skin General skin exam: no rashes or lesions noted Neuro General: patient alert, patient awake and patient oriented x3 Cognition: normal cognition Speech: speech normal Motor: muscle tone normal throughout Sensory Exam: no sensory deficits noted Extrem General: normal to inspection, full ROM, capillary refill normal, no calf tenderness bilaterally and no edema Psych Appearance: grossly normal Mental Status: mental status grossly normal Speech and Movement: speech and movement normal Affect: normal affect
--- NOTE | 2020-01-23 11:00 | RT.EKG_ITS ---
APPROVED REPORT Exam: Resting ECG Patient Location: E HR:97 bpm ECG Measurements Heart Rate 97 AXIS MN 148 P 43 QRSd 61 QRS 24 QT 363 T 31 QTc 461 Conclusion Less than 1mm ST depression in II, seen in previous. Artifact.
[2020-01-23 11:29] LABS: Abs Immature Grans 0.07 10^3/uL (0.0-0.06); Absolute Basophil Count 0.04 10^3/uL (0.0-0.2); Absolute Eosinophil Count 0.13 10^3/uL (0.0-0.7); Absolute Lymphocyte Count 2.13 10^3/uL (1.2-3.4); Absolute Monocyte Count 1.02 10^3/uL (0.1-0.8); Absolute Neutrophil Count 14.79 10^3/uL (1.2-6.7); Basophils % 0.2; Eosinophils % 0.7; HCT 46.6 % (36.0-46.0); HGB 14.8 g/dL (11.2-15.7); Immature Grans % 0.4; Lymphocytes % 11.7; MCH 26.9 pg (27.0-33.0); MCHC 31.8 % (32.0-36.0); MCV 84.6 fL (80-95); MPV 10.2 fL (8.0-11.0); Monocytes % 5.6; Neutrophils % 81.4; Nucleated RBC 0 %; Platelet Count 309 10^3/uL (130-400); RBC 5.51 10^6/uL (3.93-5.22); RDW 15.9 % (11.7-14.6); RDW-SD 48.9 fL; WBC 18.17 10^3/uL (4.4-10.8)
--- NOTE | 2020-01-23 11:29 | DI.RAD_ITS ---
EXAM: XR PORTABLE CHEST AP CLINICAL HISTORY: shortness of breath, r/o acute disease TECHNIQUE: COMPARISON: CR,XR XR CHEST 2V PA LATERAL from 05/21/[address] ABDOMEN PELVIS W from 10/29/2019 CR XR RIBS ONLY RT from 10/31/2019 FINDINGS: There are severe pulmonary fibrotic changes as noted on prior chest examinations. The findings appea r stable, no focal acute consolidation seen. No gross pleural effusion on this frontal film. Cardiac size is within normal limits. IMPRESSION: Severe chronic fibrotic changes, no gross acute consolidation.
[2020-01-23] MEDS: methylPREDNISolone SUCC 125 MG VIAL IVP (11:30)
[2020-01-23] MEDS: Normal Saline Flush 10 ML SYR IVP (11:30)
[2020-01-23] MEDS: Normal Saline 500 ML IV (11:30)
[2020-01-23] MEDS: Albuterol/Ipratropium 3 ML UPD VIAL UPD (11:40)
[2020-01-23 11:47] LABS: INR 1.1 (0.9-1.1); PTT Activated 22.2 sec (21.0-31.4); Prothrombin Time 10.6 sec (9.3-11.0)
[2020-01-23 11:50] LABS: ALT 37 U/L (14-59); AST 25 U/L (15-37); Albumin 3.6 g/dL (3.4-5.0); Alkaline Phosphatase 111 U/L (46-116); Anion Gap 3.6 mmol/L (3-11); BUN 25 mg/dL (7-18); Bilirubin, Total 0.5 mg/dL (0.2-1.0); CO2 34.4 mmol/L (21.0-32.0); CREATININE 0.67 mg/dL (0.55-1.02); Chloride 94 mmol/L (98-107); Glucose 80 mg/dL (74-106); Magnesium 1.8 mg/dL (1.8-2.4); Potassium 4.1 mmol/L (3.5-5.1); Sodium 132 mmol/L (136-145); Total Protein 8.1 g/dL (6.4-8.2)
--- NOTE | 2020-01-23 11:54 | NUR.NOTE ---
pt states she did not take any of her meds this morning other than methadone at [facility] Note:
[2020-01-23 11:55] LABS: Troponin I < 0.05 ng/mL (<0.06)
[2020-01-23] MEDS: Amoxicillin 875/Clav. 125 TAB PO (14:20)
[2020-01-23] MEDS: Doxycycline Hyclate 100 MG CAP PO (14:20)
[2020-01-23] MEDS: Amox. 875/Clav. 125, 2 TABS/BTL 1 TAB PO (14:27)
[2020-01-23] MEDS: Doxycycline Hyclate 100 MG, 2 CAPS/BTL PO (14:28)
--- NOTE | 2020-01-23 14:53 | NUR.NOTE ---
Nursing Note: Prescriptions called in to [facility]. Prednisone, augmentin and doxycycline hyclate. Kathi Ramirez
== END 2020-01-23 14:30 | disposition home or self-care (01) ==
PROVIDERS: Emergency Provider Physician Assistant; PCP Student in an Organized Health Care Education/Training Program
DX: J44.1 Chronic obstructive pulmonary disease with (acute) exacerbation (principal); F17.210 Nicotine dependence, cigarettes, uncomplicated; M54.6 Pain in thoracic spine; E11.9 Type 2 diabetes mellitus without complications; Z79.84 Long term (current) use of oral hypoglycemic drugs; I12.9 Hypertensive chronic kidney disease with stage 1 through stage 4 chronic kidney disease, or unspecified chronic kidney disease; N18.4 Chronic kidney disease, stage 4 (severe); Z53.29 Procedure and treatment not carried out because of patient's decision for other reasons
CPT/HCPCS: 36415; 80053; 93005; 94640; 96361; 96374; 99285; 71045; 83735; 84484; 85025; 85610; 85730; 93010; J2930; J7620

== ENCOUNTER 2020-01-28 13:34 | Inpatient (IN) | payer MEDICARE, MEDICAID, SELFPAY ==
[2020-01-28] VITALS (73 sets, daily range): BP systolic 106–165; BP diastolic 73–99; PULSE 93–119; RESP 13–33; TEMP 36.7–37.1; O2SAT 88–97
--- NOTE | 2020-01-28 13:30 | RT.EKG_ITS ---
APPROVED REPORT Exam: Resting ECG Patient Location: E HR:113 bpm ECG Measurements Heart Rate 113 AXIS WA 136 P 7 QRSd 86 QRS 29 QT 347 T 14 QTc 476 Conclusion Sinus tachycardia...rate> 99 EKG shows sinus tach at 113, normal axis, no STEMI, nondiagnostic EKG
[2020-01-28 14:18] LABS: BE (Venous) 12 mmol/L (-2-3); HCO3 (Venous) 36 mmol/L (23-28); O2 Sat (Venous) 83 %; TCO2 (Venous) 31 mmol/L (24-29); pCO2 (Venous) 48 mmHg (41-51); pH (Venous) 7.48 (7.31-7.41); pO2 (Venous) 44 mmHg
[2020-01-28 14:19] LABS: Lactate 1.1 mmol/L (0.6-1.4)
[2020-01-28 14:20] LABS: Abs Immature Grans 0.16 10^3/uL (0.0-0.06); Basophils % 0.1; HGB 15.6 g/dL (11.2-15.7); Immature Grans % 0.7; Lymphocytes % 5.2; MCH 26.6 pg (27.0-33.0); MCHC 32.5 % (32.0-36.0); MCV 81.8 fL (80-95); MPV 10.3 fL (8.0-11.0); Monocytes % 5.5; Neutrophils % 88.5; Nucleated RBC 0 %; Platelet Count 310 10^3/uL (130-400); RBC 5.87 10^6/uL (3.93-5.22); RDW 15.4 % (11.7-14.6); RDW-SD 45.4 fL; WBC 22.18 10^3/uL (4.4-10.8)
[2020-01-28 14:25] LABS: Absolute Basophil Count 0.02 10^3/uL (0.0-0.2); Absolute Lymphocyte Count 1.15 10^3/uL (1.2-3.4); Absolute Monocyte Count 1.22 10^3/uL (0.1-0.8); Absolute Neutrophil Count 19.63 10^3/uL (1.2-6.7)
[2020-01-28] MEDS: Ipratropium/Albuterol 4 GM 120 PUFF INH IH (14:28)
[2020-01-28] MEDS: Normal Saline 250 ML IV (14:33)
[2020-01-28 14:40] LABS: ALT 33 U/L (14-59); AST 25 U/L (15-37); Albumin 3.7 g/dL (3.4-5.0); Alkaline Phosphatase 132 U/L (46-116); Anion Gap 8.5 mmol/L (3-11); BUN 22 mg/dL (7-18); Bilirubin, Total 0.7 mg/dL (0.2-1.0); CO2 33.5 mmol/L (21.0-32.0); Calcium 9.5 mg/dL (8.5-10.1); Chloride 94 mmol/L (98-107); Glucose 125 mg/dL (74-106); Potassium 3.6 mmol/L (3.5-5.1); Sodium 136 mmol/L (136-145); Total Protein 8.2 g/dL (6.4-8.2)
[2020-01-28 14:46] LABS: NT-proBNP 211 pg/mL (<300)
--- NOTE | 2020-01-28 14:48 | DI.RAD_ITS ---
EXAM: XR PORTABLE CHEST AP CLINICAL HISTORY: SOB TECHNIQUE: 2D digital imaging was performed. COMPARISON: CT CT ABDOMEN PELVIS W from 10/29/2019 CR XR RIBS ONLY RT from 10/31/2019 CR XR PORTABLE CHEST AP from 01/23/2020 FINDINGS: LUNGS: Severe fibrotic changes are again noted. There is no gross evidence of a superimposed infiltr ate, effusion or pulmonary edema. HEART: Normal. MEDIASTINUM: Normal. Bones: Old right rib fractures. Degenerative changes in the spine. IMPRESSION: Severe changes of pulmonary fibrosis. No gross superimposed infiltrate. DATA REPOSITORY: RADIATION DOSE DELIVERED:
--- NOTE | 2020-01-28 15:15 | DI.CT_ITS ---
EXAM: CT CHEST PE CTA CLINICAL HISTORY: SOB. TECHNIQUE: Imaging Protocol: Axial CT angiography was performed with multi-slice acquisition and mu lti-planar and/or 3D reconstructions. CONTRAST MATERIAL: Intravenous: Omnipaque 350 Contrast volume:46 cc COMPARISON: CT CT ABDOMEN PELVIS W from 10/29/2019 FINDINGS: Pulmonary Arteries: No evidence of filling defect to suggest pulmonary emboli. Mediastinum: Extensive pneumomediastinum tracking for superiorly into the neck and inferiorly into th e upper abdomen. Mild subcarinal adenopathy. Lungs: Severe emphysematous and fibrotic changes. 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 Mild bronchiectasis is present. There is marked kyphoscoliosis. No compression fractures. Old right rib fractures. A small portion of the upper abdomen is included on the exam. The stomach is markedly distended. IMPRESSION: Extensive pneumomediastinum. Distended stomach. No evidence of pulmonary embolism. Severe underlying emphysematous and fibrotic changes with probable superimposed acute posterior infil trates bilaterally. RADIATION DOSE DELIVERED: 133.31mGy.cm Total DLP DATA REPOSITORY: All CT scans at this facility are submitted to the National Radiology Data Registry (NRDR) Dose Index Registry (DIR) with the [employer] (A[employer]). RADIATION OPTIMIZATION: All CT scans at this facility use at least one of these dose optimization te chniques: automated exposure control; mA and/or kV adjustment per patient size (includes targeted exa ms where dose is matched to clinical indication); or iterative reconstruction.
--- NOTE | 2020-01-28 15:25 | ED.GENADUL_ITS ---
Discharge Plan Disposition Patient Disposition: [facility] INPATIENT Condition: Improving Discharge Details Chief Complaint: SOB Clinical Impression: Pneumomediastinum, Bilateral pneumothoraces, Pneumonia, Chronic vomiting Admit Date/Time: 01/28/20 20:35 Admit Provider: Scar Bustamante Attending Provider: Scar Bustamante Primary Care Provider: Kirsten Friedman ED Provider: Libra Jarrell Hospital Course Hospital Course: 64-year-old female with history of COPD on home oxygen, and history of chronic back pain requiring methadone, presents emergency department January 28, 2020 with increased shortness of breath of several days duration and nausea and vomiting. CT of her chest at the time of admission demonstrated pneumomediastinum with air tracking along the ascending aorta, aortic arch and descending aorta into the upper abdomen along with a loculated right medial and left medial pneumothoraces and small right upper lobe loculated pneumothorax. There is some questionable bilateral pneumonia. Dr. Crane from general surgery was consulted by the ER Dr. Jarrell who recommended transfer the patient. Dr. Jarrell reviewed the case with [facility] thoracic surgical department and 1 other surgeons reviewed the chest CT and felt that her pneumomediastinum and pneumothoraces was due to a ruptured bleb and not due to a ruptured esophagus. Patient was started on antibiotics and admitted to the hospital. Subsequent evaluation with a barium swallow was performed on January 30, 2020 it was a limited exam but no esophageal perforation was seen. She had mild narrowing and fold thickening at the GE junction. Chest x-ray from January 29 showed questionable infiltrate at the right lung base but no visible pneumothorax however she has severe fibrotic changes. Patient was treated initially for what was felt to be an aspiration pneumonitis with Rocephin and doxycycline but that was changed on February 01, 2020 to cefepime and vancomycin. When she was demonstrating persistent leukocytosis after I assumed her care I switched her to Zosyn 4.5 g IV every 8 hours and continued her Zosyn vancomycin beginning February 03, 2020. Her only fever occurred on February 01, 2020 when she had a temperature of 38.5. She has been afebrile ever since. Vancomycin was discontinued February 06, 2020 and her Zosyn was completed on the same day. Patient's dyspnea is back to her baseline and that she is not dyspneic at rest or with light activities such as dressing herself or washing herself but with any prolonged physical activity she gets dyspneic. Her oxygen saturation has generally been in the mid to high 90s even as much is 100% saturation on 1 or 2 L of oxygen per nasal cannula and at times she is able to come off oxygen while at rest. Patient has been very cachectic and when she presented the hospital she had poor appetite with weight loss. Dr. Bella tried her on Marinol however because of acute confusion that was discontinued. I have since put her on Megace which seems to stimulate her appetite. Her weight today is 32 kg and this appears to be her baseline over the last month however when you look over the last year she has lost 20 kg. Patient has had extensive studies both as an outpatient and an inpatient looking for the cause of her weight loss. She had a CT scan of her abdomen pelvis on October 29, 2019 that showed no acute intra- abdominal or pelvic process and no mass or adenopathy. She does have multilevel degenerative changes in her spine along with scoliosis. Right upper quadrant abdominal ultrasound also performed in October showed cholelithiasis with no acute cholecystitis. She had a CT of her chest on admission that showed a pneumomediastinum and pneumothoraces. During this hospitalization she has had serial chest x-rays. Last 1 was performed February 05, 2020 PA and lateral chest x-ray showed severe chronic fibrotic changes with no definitive acute consolidation. Head CT scan performed January 31 showed no evidence of acute intracranial process she has patchy areas of decreased attenuation in the periventricular white matter consistent with microvascular ischemic changes. At this time the patient is complete her course of antibiotics but still has generalized weakness and decreased ADL performance and requires acute group home treatment with PT and OT consultation for her generalized weakness. Patient lives in a mobile home with several stairs to get into her mobile home a t this time requires physical therapy to work with her ambulation. With respect to her pain management and transient periods of confusion both Dr. Bella and myself have been adjusting her medications. I have taken her off of her scopolamine patch and drastically reduced her gabapentin dose down to 300 mg at at bedtime and discontinued her mirtazapine. Her methadone dose has been reduced to 30 mg daily from her previous dose of 70 mg daily. With regard to her leukocytosis I have reviewed her labs and it appears that she has a chronic leukocytosis that dates back for the past year to year and a half with white counts running between 15-25,000. It is my impression that her leukocytosis is not due to infection or steroids but may be due to some myelodysplastic syndrome. I recommend that she follow-up with a application security engineer upon discharge from [facility]. Discharge Data Discharge Date/Time-TO BE ENTERED AT DEPARTURE: 01/28/20 21:30 Medical Decision Making <Martha Ge MD - Last Filed: 02/10/20 23:14> Kira Odonnell is a 64 y/o woman with h/o pulmonary fibrosis, COPD, DM, cirrhosis, HTN who presented to the ED with SOB, vomiting, and epigastric pain. On exam Pt is mildly tachypnea but is speaking in full sentences. Concern for COPD exacerbation, pulmonary infection including COVID, CHF, ACS, pulmonary embolism, other. Exam/hx not c/w acute aortic pathology. Plan for screening labs, duoneb, EKG, CTA, telemetry. Will monitor and reassess. Labs reviewed, neg trop, nl BNP, leukocytosis >20 noted. Unclear etiology of leukocytosis, holding abx for now. Pt signed out to Dr. Jarrell at shift change with CT, reassessment pending. Medical Records Medical records reviewed: Yes I reviewed the patient's medical records. Lab Data Lab results reviewed: Yes I reviewed the patient's lab results. Labs: 01/28/20 17:25 Blood Blood Culture - Pending 01/28/20 13:36 Blood Blood Culture - Pending Laboratory Tests Range/Units 01/28/20 01/28/20 01/28/20 14:10 14:10 14:10 WBC (4.4-10.8) 10^3/uL 22.18 H RBC (3.93-5.22) 10^6/uL 5.87 H Hgb (11.2-15.7) g/dL 15.6 Hct (36.0-46.0) % 48.0 H MCV (80-95) fL 81.8 MCH (27.0-33.0) pg 26.6 L MCHC (32.0-36.0) % 32.5 RDW (11.7-14.6) % 15.4 H Plt Count (130-400) 10^3/uL 310 MPV (8.0-11.0) fL 10.3 Immature Gran % 0.7 Neutrophils % 88.5 Lymphocytes % 5.2 Monocytes % 5.5 Eosinophils % 0.0 Basophils % 0.1 Absolute Neutrophils (1.2-6.7) 10^3/uL 19.63 H Absolute Lymphocytes (1.2-3.4) 10^3/uL 1.15 L Absolute Monocytes (0.1-0.8) 10^3/uL 1.22 H Absolute Eosinophils (0.0-0.7) 10^3/uL 0.00 Absolute Basophils (0.0-0.2) 10^3/uL 0.02 VBG pH (7.31-7.41) VBG pCO2 (41-51) mmHg VBG pO2 mmHg VBG HCO3 (23-28) mmol/L VBG Total CO2 (24-29) mmol/L VBG O2 Saturation % VBG Base Excess (-2-3) mmol/L Sodium (136-145) mmol/L 136 Potassium (3.5-5.1) mmol/L 3.6 Chloride (98-107) mmol/L 94 L Carbon Dioxide (21.0-32.0) mmol/L 33.5 H Anion Gap (3-11) mmol/L 8.5 BUN (7-18) mg/dL 22 H Creatinine (0.55-1.02) mg/dL 0.50 L Estimated GFR/1.73 m2 (mL/min/1.73m2) >= 60.00 Glucose (74-106) mg/dL 125 H Lactate (0.6-1.4) mmol/L 1.1 Calcium (8.5-10.1) mg/dL 9.5 Total Bilirubin (0.2-1.0) mg/dL 0.7 AST (15-37) U/L 25 ALT (14-59) U/L 33 Alkaline Phosphatase (46-116) U/L 132 H Troponin I (<0.06) ng/mL NT-Pro-B Natriuret Pep (<300) pg/mL Total Protein (6.4-8.2) g/dL 8.2 Albumin (3.4-5.0) g/dL 3.7 Range/Units 01/28/20 01/28/20 01/28/20 14:10 14:10 14:10 WBC (4.4-10.8) 10^3/uL RBC (3.93-5.22) 10^6/uL Hgb (11.2-15.7) g/dL Hct (36.0-46.0) % MCV (80-95) fL MCH (27.0-33.0) pg MCHC (32.0-36.0) % RDW (11.7-14.6) % Plt Count (130-400) 10^3/uL MPV (8.0-11.0) fL Immature Gran % Neutrophils % Lymphocytes % Monocytes % Eosinophils % Basophils % Absolute Neutrophils (1.2-6.7) 10^3/uL Absolute Lymphocytes (1.2-3.4) 10^3/uL Absolute Monocytes (0.1-0.8) 10^3/uL Absolute Eosinophils (0.0-0.7) 10^3/uL Absolute Basophils (0.0-0.2) 10^3/uL VBG pH (7.31-7.41) 7.48 H VBG pCO2 (41-51) mmHg 48 VBG pO2 mmHg 44 VBG HCO3 (23-28) mmol/L 36 H VBG Total CO2 (24-29) mmol/L 31 H VBG O2 Saturation % 83 VBG Base Excess (-2-3) mmol/L 12 H Sodium (136-145) mmol/L Potassium (3.5-5.1) mmol/L Chloride (98-107) mmol/L Carbon Dioxide (21.0-32.0) mmol/L Anion Gap (3-11) mmol/L BUN (7-18) mg/dL Creatinine (0.55-1.02) mg/dL Estimated GFR/1.73 m2 (mL/min/1.73m2) Glucose (74-106) mg/dL Lactate (0.6-1.4) mmol/L Calcium (8.5-10.1) mg/dL Total Bilirubin (0.2-1.0) mg/dL AST (15-37) U/L ALT (14-59) U/L Alkaline Phosphatase (46-116) U/L Troponin I (<0.06) ng/mL < 0.05 NT-Pro-B Natriuret Pep (<300) pg/mL 211 Total Protein (6.4-8.2) g/dL Albumin (3.4-5.0) g/dL ECG Data Attestation: I personally reviewed and interpreted this ECG (s) as follows: Interpretation: EKG shows sinus tach at 113, normal axis, no STEMI, non diagnostic EKG <Libranicole Jarrell DO - Last Filed: 01/28/20 23:10> 1700 --please see Dr. Martha Ge's note for initial presentation, exam and plan. 64-year-old female who is DNI with a history of COPD and chronic tobacco smoker, history of cirrhosis, anxiety, depression and chronic methadone dependence presents for shortness of breath and multiple episodes of vomiting today. Case endorsed to follow-up on CT chest and reassessment after Ralph Zhang. CT chest notes extensive pneumomediastinum with air tracking along the ascending aorta, aortic arch and descending aorta into the upper abdomen. There is also loculated right medial and left medial pneumothorax with small right upper lobe loculated pneumothorax. There is also bilateral pneumonia. IV antibiotics ordered. With her chronic COPD could be due to a ruptured bleb, or with her chronic vomiting could be due to ruptured esophagus. Results discussed with patient. She is DNI but states she would become a full code if surgery indicated. She is open to transfer to [facility] if indicated. Heart rate 110s, blood pressure within normal limits. She is afebrile and appears nontoxic. She has green-brown vomitus in vomit bag. Case discussed with surgery Dr. Matthews who recommends likely transfer. 190 -- Case discussed with [facility] thoracic surgery who reviewed CT chest and thinks that likely the pneumomediastinum is a result of the pneumothoraces and unlikely due to ruptured esophagus. Does not see an indication for transfer and recommends admission here overnight with n.p.o. in the morning with consideration for barium swallow in the a.m. Does not see indication for any treatment for the pneumothoraces at this time as they are small. Case discussed with Dr. Bustamante and Dr. Crane. Dr. Matthews who will consult and follow for the pneumomediastinum and pneumothoraces. Plan for barium swallow in the a.m. Medical Records Medical records reviewed: Yes I reviewed the patient's medical records. Imaging Data Radiologic Study: Radiologist's impression: CT Angiography Chest With Contrast Exam date and time: 01/28/2020 3:59 PM Age: 64 years old Clinical indication: Shortness of breath; Patient HX: SOB TECHNIQUE: Imaging protocol: Computed tomographic angiography of the chest with intravenous contrast. 3D rendering: MIP and/or 3D reconstructed images were created by the technologist. COMPARISON: CT CHEST PE CTA 28/10/2019 09:27 FINDINGS: Pulmonary arteries: No evidence for pulmonary embolus. Aorta: Extensive pneumomediastinum with air tracking along the ascending aorta, aortic arch, and descending aorta into the upper abdomen at the level just above the renal arteries. Lungs: Advanced emphysematous lung disease. Bilateral infiltrates more extensive on the right than left. Bilateral parenchymal scarring and interstitial fibrosis. Bilateral bronchiectasis with peribronchial thickening. Pleural space: Loculated right medial and left medial pneumothorax. Small right upper lobe loculated pneumothorax. Heart: Cardiomegaly. No pericardial effusion. Mediastinal space: Extensive pneumomediastinum with air tracking into the soft tissues of the 1st slices of the upper neck near the C1-C2 level. Extensive air tracking along the trachea, aorta, esophagus, and branching right and left mainstem bronchus. Lymph nodes: Mediastinal and hilar adenopathy. Liver: Hepatic steatosis. Stomach and bowel: Markedly distended stomach with fluid and air. Bones/joints: Multilevel degenerative changes of the thoracic and cervical spine. Marked kyphosis and scoliosis. Increased AP diameter of the chest. Old right posterior lateral rib fractures. Soft tissues: Cachexia. IMPRESSION: 1. No evidence for pulmonary embolus. 2. Extensive bilateral pneumonia with advanced interstitial fibrosis and emphysematous lung disease. 3. Extensive pneumomediastinum extending up to the base of the neck, throughout the mediastinum, and into the upper abdomen. Loculated mediastinal air versus pneumothorax medially and involving the right and left chest. Loculated pneumothorax along the lateral aspect of the right upper lobe. 4. Mediastinal and hilar adenopathy. 5. Multiple additional findings as discussed above. Lab Data Lab results reviewed: Yes I reviewed the patient's lab results. ECG Data Attestation: I personally reviewed and interpreted this ECG (s) as follows: Interpretation: rate of 113, sinus, no acute ST elevation or depression. CT 136. QRS 86. QTc 476. HPI <Martha Ge MD - Last Filed: 02/10/20 23:14> General Mode of arrival: EMS . Date/Time Provider Initiated Documentation: 01/28/20 13:36 . Limitations to Documentation: no limitations . Information obtained by: patient, RN notes reviewed and old records reviewed . HPI Narrative: Kira Odonnell is a 64-year-old woman with a history of liver cirrhosis, COPD, diabetes, hypertension presenting to the emergency department with shortness of breath and chest pain. Patient reports that she has felt well last few days, and then woke up feeling short of breath at 2:00 this morning. Patient also reports that she had epigastric pain this morning with 2 episodes of vomiting. Patient reports that epigastric pain has improved but she continues to feel short of breath. Patient reports that she used her inhaler at home without significant relief. She denies any other pain, fevers, cough, diarrhea, numbness, weakness, rash. Patient was seen here 01/22 for similar symptoms, CT chest was recommended but Pt refused at that time and left the ED against medical advice. Related Data Home Medications Medication Instructions Recorded Confirmed triamcinolone acetonide 1 lorraien TOPICAL TID PRN #30 gm 09/07/17 01/28/20 compressor, for nebulizer #1 each 09/28/18 02/07/20 methadone 10 mg/mL oral concentrate 30 mg PO DAILY ml 09/28/18 02/07/20 cholecalciferol (vitamin D3) 50 2,000 unit PO DAILY 01/24/19 02/07/20 mcg (2,000 unit) capsule ipratropium 0.5 mg-albuterol 3 mg 3 ml UPD Q6H PRN PRN #90 ml 01/24/19 02/07/20 (2.5 mg base)/3 mL nebulization soln lisinopril 10 mg tablet 10 mg PO DAILY #90 tab-cap 03/22/19 02/07/20 aspirin 81 mg PO DAILY #30 tab 05/24/19 02/07/20 fluticasone furoate 200 1 inh IH DAILY #60 each 07/06/19 01/28/20 mcg-vilanterol 25 mcg/dose inhalation powder mirtazapine 30 mg tablet 30 mg PO HS #30 tab-cap 07/26/19 01/28/20 bupropion HCl 300 mg 24 hr tablet, 300 mg PO DAILY #90 tab 08/16/19 02/07/20 extended release food supplemt, lactose-reduced See Rx Instructions PO BID #237 ml 08/19/19 02/07/20 0.04 gram-1.05 kcal/mL oral liquid furosemide 40 mg PO BID 09/19/19 02/07/20 spironolactone 25 mg tablet 50 mg PO BID #120 tab 10/16/19 02/07/20 docusate sodium [Colace] 100 mg PO TID PRN PRN #30 cap 11/01/19 02/07/20 nicotine 14 mg TRANSDERMAL DAILY #30 ea 11/01/19 02/07/20 polyethylene glycol 3350 17 g PO DAILY PRN PRN #510 g 11/01/19 02/07/20 haloperidol lactate 2 mg/mL oral 0.5 mg PO TID PRN #15 ml MDD 1.5 mg 11/30/19 01/28/20 concentrate scopolamine base 1 mg over 3 days 1 patch TD Q3D #10 each 12/12/19 02/07/20 transdermal patch hydroxyzine HCl 50 mg tablet 50 mg PO QID PRN #60 tab 01/18/20 01/28/20 omeprazole 20 mg capsule,delayed 40 mg PO DAILY #60 cap 01/18/20 02/07/20 release ondansetron 4 mg disintegrating 4 mg PO Q8H PRN #30 tab 01/18/20 02/07/20 tablet prednisone 20 mg tablet 40 mg PO DAILY #8 tab 01/18/20 01/28/20 Refresh Tears 1 drp OPHTHALMIC (EYE) DIRECTED 01/23/20 02/07/20 albuterol sulfate [Ventolin HFA] 2 puff INHALATION BID 01/23/20 02/07/20 amoxicillin-pot clavulanate 1 tab PO BID 10 Days #20 tab 01/23/20 01/28/20 [Augmentin] doxycycline hyclate 100 mg PO BID 7 Days #14 tab 01/23/20 01/28/20 magnesium chloride [Mag 64] 500 mg PO BID 01/23/20 02/07/20 prednisone See Rx Instructions .ROUTE 01/23/20 01/28/20 .COMPLEX #12 tab gabapentin 300 mg capsule 300 mg PO TID #90 cap 02/06/20 02/07/20 Previous Rx's Medication Instructions Recorded compressor, for nebulizer #1 each 09/28/18 ipratropium 0.5 mg-albuterol 3 mg 3 ml UPD Q6H PRN PRN #90 ml 01/24/19 (2.5 mg base)/3 mL nebulization soln lisinopril 10 mg tablet 10 mg PO DAILY #90 tab-cap 03/22/19 aspirin 81 mg PO DAILY #30 tab 05/24/19 fluticasone furoate 200 1 inh IH DAILY #60 each 07/06/19 mcg-vilanterol 25 mcg/dose inhalation powder mirtazapine 30 mg tablet 30 mg PO HS #30 tab-cap 07/26/19 bupropion HCl 300 mg 24 hr tablet, 300 mg PO DAILY #90 tab 08/16/19 extended release food supplemt, lactose-reduced See Rx Instructions PO BID #237 ml 08/19/19 0.04 gram-1.05 kcal/mL oral liquid spironolactone 25 mg tablet 50 mg PO BID #120 tab 10/16/19 docusate sodium [Colace] 100 mg PO TID PRN PRN #30 cap 11/01/19 nicotine 14 mg TRANSDERMAL DAILY #30 ea 11/01/19 polyethylene glycol 3350 17 g PO DAILY PRN PRN #510 g 11/01/19 haloperidol lactate 2 mg/mL oral 0.5 mg PO TID PRN #15 ml MDD 1.5 mg 11/30/19 concentrate scopolamine base 1 mg over 3 days 1 patch TD Q3D #10 each 12/12/19 transdermal patch hydroxyzine HCl 50 mg tablet 50 mg PO QID PRN #60 tab 01/18/20 omeprazole 20 mg capsule,delayed 40 mg PO DAILY #60 cap 01/18/20 release ondansetron 4 mg disintegrating 4 mg PO Q8H PRN #30 tab 01/18/20 tablet prednisone 20 mg tablet 40 mg PO DAILY #8 tab 01/18/20 amoxicillin-pot clavulanate 1 tab PO BID 10 Days #20 tab 01/23/20 [Augmentin] doxycycline hyclate 100 mg PO BID 7 Days #14 tab 01/23/20 prednisone See Rx Instructions .ROUTE 01/23/20 .COMPLEX #12 tab gabapentin 300 mg capsule 300 mg PO TID #90 cap 02/06/20 Allergies Allergy/AdvReac Type Severity Reaction Status Date / Time gabapentin AdvReac Severe Nausea Verified 01/28/20 13:50 metaxalone [Metaxalone] AdvReac Severe nausea Verified 01/28/20 13:50 diclofenac [Diclofenac] AdvReac Intermediate contraindicated Verified 01/28/20 13:50 w/ pt's liver promethazine AdvReac Mild disoriented Verified 01/28/20 13:50 prochlorperazine AdvReac Unknown disoriented Verified 01/28/20 13:50 General Stated Complaint: SOB JANNIE: 2 Review of Systems <Martha Ge MD - Last Filed: 02/10/20 23:14> Narrative: Constitutional: denies fevers Eyes: denies eye pain ENT: denies ear pain, dental pain, sore throat Cardiovascular: denies chest pain, edema Respiratory: denies cough, reports SOB GI: denies diarrhea, reports epigastric pain, vomiting : denies flank pain MSK: denies back pain, neck pain, arthralgias, myalgias Skin: denies rash Neuro: denies headaches, numbness, weakness PFSH <Martha Ge MD - Last Filed: 02/10/20 23:14> Medical History Abnormal CT of the chest (Acute 03/18/17) stable 2mm nodule in AILYN Annual Chest CT for lung cancer screening recommended Acute renal failure (Resolved 04/29/14) a. creatinine bumped from 0.8 to 2.9 b. h/o renal failure 06/2013, presented with creatinine 5.4, which normalized with IV fluids Acute right-sided low back pain without sciatica (Acute 06/08/17) Pain rad thru buttock, but not down leg. Priformis Syndr? [ ] PT [ ] Hx Pain Clinic (Injctn #1 helped, #2 did not). Occasional relief from SOMA. Trial GABAPENTIN 06/09/18.in past Anxiety and depression (Chronic) Bilateral pneumonia (Acute 04/29/14) A. Bilateral lower lobes Biliary colic (Inactive) Cirrhosis Cirrhosis of liver (Chronic) a. History of Hep C treatment. b. Liver biopsy 2005 positive for cirrhosis. 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 AFP levels every six months and ruq US every 12 months COPD (chronic obstructive pulmonary disease) (Chronic) Ongoing tobacco use. COPD (chronic obstructive pulmonary disease) (Chronic) Diabetes (Chronic) On Metformin. Diabetes mellitus DNI (do not intubate) (Acute) Essential hypertension (Chronic) Well maintained, meds tolerated. Hepatitis C HTN (hypertension) Hypertension (Chronic) Methadone dependence (Chronic) Nausea & vomiting (Acute) Neuropathy of right radial nerve (Chronic) a. recently had multiple falls and a hematoma around her humerus b. resolving Pleuritic chest pain (Acute 04/29/14) a. left sided POLST (Physician Orders for Life-Sustaining Treatment) (Acute) Polysubstance abuse (Chronic) a. h/o opiate overdose 06/2013 and 11/2013 b. recently started in [facility] program 03/13/2014 on oral methadone (missed her dose today) Shortness of breath (Acute) Spinal stenosis (Chronic) a. MRI 10/2009, showed L4-5 narrowing Tobacco abuse (Chronic) Tobacco use disorder Varices of esophagus determined by endoscopy (Acute) Surgical History Appendectomy (01/30/07) H/O: hysterectomy (Chronic) History of ankle surgery (Acute) left S/P bilateral breast lumpectomy (Acute) Family History Mother Myocardial infarction Stroke Sister Diabetes Myocardial infarction Sister Diabetes Father Diabetes Alcohol abuse Myocardial infarction Social History Smoking/Tobacco Use Status: Current every day Tobacco Type: cigarettes Smoking packs per day: 1 Smoking cigarettes per day: 20.0 Years smoked: 40 Smoking pack- years: 40.00 Quit status: considering quitting Counseling given: other Details: pt feels motivated and states she doesnt enjoy them now Alcohol Intake: never Drug use: Current Sobriety Substance use type: heroin Details: on [facility] clinic Adopted: No Household members: none Housing: house Communication Needs: None Pets and animals: Yes Pets and animals: cat(s) What is your relationship status?: Panel score (0-1 are the most socially isolated patients): 0 What type of physical activity do you participate in: none Seatbelt use: always Drive intox or ride w/intox local truck driver: No Working smoke detector in home: Yes Fire extinguisher in home: Yes Carbon monox detector in home: Yes Do you feel safe at home: Yes Do you feel safe in your relationship?: Yes Exam <Martha Ge MD - Last Filed: 02/10/20 23:14> Narrative Exam Narrative: Constitutional: appears chronically ill and somehwat uncomfortable, pleasant, conversing normally HENT: head atraumatic/normocephalic/normal inspection, mucous membranes moist Eyes: conjunctiva normal, sclera normal, pupils 3mm b/l Neck: no stridor, normal ROM, trachea midline Chest: normal inspection Resp: mild tahcypnea but speaking in full sentences, LCTAB Cardio: normal rate, normal rhythm, no murmur appreciated GI: abdomen soft, non-tender, non-distended Back: normal inspection, no rash Skin: warm, dry, normal color, no rash Neuro: alert, not altered, grossly non-focal, normal tone Ext: no edema, no posterior calf TTP Psych: normal mood, normal affect, normal behavior Course <Martha Ge MD - Last Filed: 02/10/20 23:14> Vital Signs Vital signs: Vital Signs Temperature 37 C 01/28/20 13:43 Pulse 110 H 01/28/20 13:43 Respiratory Rate 19 01/28/20 13:43 Blood Pressure 149/97 H 01/28/20 13:43 Pulse Oximetry 92 L 01/28/20 13:43 Temperature 37 C 01/28/20 13:43 Temperature Source Temporal Artery Scan 01/28/20 13:43 Pulse 110 H 01/28/20 13:43 Respiratory Rate 19 01/28/20 14:14 Respiratory Effort 01/28/20 14:14 Respiratory Depth Normal 01/28/20 14:14 Respiratory Pattern Normal 01/28/20 14:14 Blood Pressure 149/97 H 01/28/20 13:43 Blood Pressure Position Supine 01/28/20 13:43 Pulse Oximetry 92 L 01/28/20 13:43 Oxygen Delivery Method Room Air 01/28/20 13:43 Oxygen Flow Rate 0 01/28/20 13:43 Pain Level 5 01/28/20 13:43 Lab/Test Results Lab/Test Results: 01/28/20 14:10 Blood Blood Culture - Pending 01/28/20 13:36 Blood Blood Culture - Pending Laboratory Tests Range/Units 01/28/20 01/28/20 01/28/20 14:10 14:10 14:10 WBC (4.4-10.8) 10^3/uL 22.18 H RBC (3.93-5.22) 10^6/uL 5.87 H Hgb (11.2-15.7) g/dL 15.6 Hct (36.0-46.0) % 48.0 H MCV (80-95) fL 81.8 MCH (27.0-33.0) pg 26.6 L MCHC (32.0-36.0) % 32.5 RDW (11.7-14.6) % 15.4 H Plt Count (130-400) 10^3/uL 310 MPV (8.0-11.0) fL 10.3 Immature Gran % 0.7 Neutrophils % 88.5 Lymphocytes % 5.2 Monocytes % 5.5 Eosinophils % 0.0 Basophils % 0.1 Absolute Neutrophils (1.2-6.7) 10^3/uL 19.63 H Absolute Lymphocytes (1.2-3.4) 10^3/uL 1.15 L Absolute Monocytes (0.1-0.8) 10^3/uL 1.22 H Absolute Eosinophils (0.0-0.7) 10^3/uL 0.00 Absolute Basophils (0.0-0.2) 10^3/uL 0.02 VBG pH (7.31-7.41) VBG pCO2 (41-51) mmHg VBG pO2 mmHg VBG HCO3 (23-28) mmol/L VBG Total CO2 (24-29) mmol/L VBG O2 Saturation % VBG Base Excess (-2-3) mmol/L Sodium (136-145) mmol/L 136 Potassium (3.5-5.1) mmol/L 3.6 Chloride (98-107) mmol/L 94 L Carbon Dioxide (21.0-32.0) mmol/L 33.5 H Anion Gap (3-11) mmol/L 8.5 BUN (7-18) mg/dL 22 H Creatinine (0.55-1.02) mg/dL 0.50 L Estimated GFR/1.73 m2 (mL/min/1.73m2) >= 60.00 Glucose (74-106) mg/dL 125 H Lactate (0.6-1.4) mmol/L 1.1 Calcium (8.5-10.1) mg/dL 9.5 Total Bilirubin (0.2-1.0) mg/dL 0.7 AST (15-37) U/L 25 ALT (14-59) U/L 33 Alkaline Phosphatase (46-116) U/L 132 H NT-Pro-B Natriuret Pep (<300) pg/mL Total Protein (6.4-8.2) g/dL 8.2 Albumin (3.4-5.0) g/dL 3.7 Range/Units 01/28/20 01/28/20 14:10 14:10 WBC (4.4-10.8) 10^3/uL RBC (3.93-5.22) 10^6/uL Hgb (11.2-15.7) g/dL Hct (36.0-46.0) % MCV (80-95) fL MCH (27.0-33.0) pg MCHC (32.0-36.0) % RDW (11.7-14.6) % Plt Count (130-400) 10^3/uL MPV (8.0-11.0) fL Immature Gran % Neutrophils % Lymphocytes % Monocytes % Eosinophils % Basophils % Absolute Neutrophils (1.2-6.7) 10^3/uL Absolute Lymphocytes (1.2-3.4) 10^3/uL Absolute Monocytes (0.1-0.8) 10^3/uL Absolute Eosinophils (0.0-0.7) 10^3/uL Absolute Basophils (0.0-0.2) 10^3/uL VBG pH (7.31-7.41) 7.48 H VBG pCO2 (41-51) mmHg 48 VBG pO2 mmHg 44 VBG HCO3 (23-28) mmol/L 36 H VBG Total CO2 (24-29) mmol/L 31 H VBG O2 Saturation % 83 VBG Base Excess (-2-3) mmol/L 12 H Sodium (136-145) mmol/L Potassium (3.5-5.1) mmol/L Chloride (98-107) mmol/L Carbon Dioxide (21.0-32.0) mmol/L Anion Gap (3-11) mmol/L BUN (7-18) mg/dL Creatinine (0.55-1.02) mg/dL Estimated GFR/1.73 m2 (mL/min/1.73m2) Glucose (74-106) mg/dL Lactate (0.6-1.4) mmol/L Calcium (8.5-10.1) mg/dL Total Bilirubin (0.2-1.0) mg/dL AST (15-37) U/L ALT (14-59) U/L Alkaline Phosphatase (46-116) U/L NT-Pro-B Natriuret Pep (<300) pg/mL 211 Total Protein (6.4-8.2) g/dL Albumin (3.4-5.0) g/dL Sign Out <Martha Ge MD - Last Filed: 02/10/20 23:14> Sign Out Data: Sign Out Comment: Pt signed out to Dr. Jarrell with CT, reassignment pending. Last updated by Martha Ge MD at 01/28/20 17:05
[2020-01-28] MEDS: Normal Saline - Diluent 50 ML VIAL IV (15:52)
[2020-01-28] MEDS: Normal Saline Flush 10 ML SYR IVP (15:52)
[2020-01-28] MEDS: Omnipaque 350 MG/ML 100 ML BTL 46 ML IJ (16:05)
[2020-01-28 16:06] LABS: Troponin I < 0.05 ng/mL (<0.06)
[2020-01-28] MEDS: LORazepam 0.5 MG TAB PO (16:08)
[2020-01-28] MEDS: Ondansetron 4 MG/2 ML VIAL IVP (16:42)
[2020-01-28] MEDS: LORazepam 2 MG/ML VIAL 0.5 MG IVP (16:42)
--- NOTE | 2020-01-28 16:45 | NUR.NOTE ---
pt returned from CT scan grunting and c/o nausa. she was givenpo ativan and vomited it up. nurse spoke to pt about comfort palliative care pt states that she is plugged in to comfort care . she would like to continue with it .. Physician is awareand orderd some comfort care medicationNursing Note:
--- NOTE | 2020-01-28 17:49 | DI.VRAD_ITS ---
Addendum created by Kareen Lugo MD on 01/28/2020 5:49:23 PM EDT THIS REPORT CONTAINS FINDINGS THAT MAY BE CRITICAL TO PATIENT CARE. The findings were verbally communicated via telephone conference with Dr. Franz at 5:47 PM EDT on 01/28/2020. The findings were acknowledged and understood. Initial report created on 01/28/2020 5:49:03 PM EDT PROCEDURE INFORMATION: Exam: CT Angiography Chest With Contrast Exam date and time: 01/28/2020 3:59 PM Age: 64 years old Clinical indication: Shortness of breath; Patient HX: SOB TECHNIQUE: Imaging protocol: Computed tomographic angiography of the chest with intravenous contrast. 3D rendering: MIP and/or 3D reconstructed images were created by the technologist. COMPARISON: CT CHEST PE CTA 28/10/2019 09:27 FINDINGS: Pulmonary arteries: No evidence for pulmonary embolus. Aorta: Extensive pneumomediastinum with air tracking along the ascending aorta, aortic arch, and descending aorta into the upper abdomen at the level just above the renal arteries. Lungs: Advanced emphysematous lung disease. Bilateral infiltrates more extensive on the right than left. Bilateral parenchymal scarring and interstitial fibrosis. Bilateral bronchiectasis with peribronchial thickening. Pleural space: Loculated right medial and left medial pneumothorax. Small right upper lobe loculated pneumothorax. Heart: Cardiomegaly. No pericardial effusion. Mediastinal space: Extensive pneumomediastinum with air tracking into the soft tissues of the 1st slices of the upper neck near the C1-C2 level. Extensive air tracking along the trachea, aorta, esophagus, and branching right and left mainstem bronchus. Lymph nodes: Mediastinal and hilar adenopathy. Liver: Hepatic steatosis. Stomach and bowel: Markedly distended stomach with fluid and air. Bones/joints: Multilevel degenerative changes of the thoracic and cervical spine. Marked kyphosis and scoliosis. Increased AP diameter of the chest. Old right posterior lateral rib fractures. Soft tissues: Cachexia. IMPRESSION: 1. No evidence for pulmonary embolus. 2. Extensive bilateral pneumonia with advanced interstitial fibrosis and emphysematous lung disease. 3. Extensive pneumomediastinum extending up to the base of the neck, throughout the mediastinum, and into the upper abdomen. Loculated mediastinal air versus pneumothorax medially and involving the right and left chest. Loculated pneumothorax along the lateral aspect of the right upper lobe. 4. Mediastinal and hilar adenopathy. 5. Multiple additional findings as discussed above. THIS REPORT CONTAINS FINDINGS THAT MAY BE CRITICAL TO PATIENT CARE. The findings were verbally communicated via telephone conference with Dr. Franz at 5:47 PM EDT on 01/28/2020. The findings were acknowledged and understood. Dictated and Authenticated by: Kareen Lugo MD. Ordering:KO Thomas MD
[2020-01-28 17:57] LABS: Troponin I < 0.05 ng/mL (<0.06)
[2020-01-28] MEDS: Metoclopramide 10 MG/2 ML VIAL IVP (19:24)
--- NOTE | 2020-01-28 20:17 | W.PM.HP.N ---
Date of service: 01/28/20 Time of Service: 20:18 Assessment and Plan Assessment and plan (1) Acute exacerbation of chronic obstructive pulmonary disease: Status: Acute Assessment and plan: COPD with pneumonia. Hemodynamics acceptable as is oxygenation. Will continue updrafts, steroids and add Abx. Pneumomediastinum: ruptured bleb vs esophageal perforation. Not exhibiting signs of toxicity suggestive of mediastinitis. Will consult surgery (ER has already discussed case with them) and plan provisionally on barium swallow in AM. Will have NPO after MN. Opiate dependence: CPM Cachexia: per report from recent hospitalization in November w/u has been non-diagnostic Reviewed ADs: reiterates DNI, but also want CPR. I believe it would be well to have another look at this with Palliative Care. History of Present Illness History of Present Illness Chief Complaint: SOB Narrative: 64 female with advanced COPD, continues to smoke. Also chronic nausea. Here with worsening SOB and several episodes vomiting. In ER findings of note for WBC 22K and CTA neg PE but showing bilateral pneumonia , small oracio. PTX and extensive pneumomediastimum. ER reviewed with CT surgery at [facility] who felt this likely represented ruptured bleb, cannot r/o esophageal perforation, but did not feel any acute intervention was required in any case. In ER received duoneb, Ativan, Zofran and Reglan. At present patient states she feels back to her usual self. I was asked to admit. Review of Systems All systems reviewed & are unremarkable except as noted in HPI and below PFSH Medical History Abnormal CT of the chest (Acute 03/18/17) stable 2mm nodule in [place]ILY[facility] Annual Chest CT for lung cancer screening recommended Acute renal failure (Resolved 04/29/14) a. creatinine bumped from 0.8 to 2.9 b. h/o renal failure 06/2013, presented with creatinine 5.4, which normalized with IV fluids Acute right-sided low back pain without sciatica (Acute 06/08/17) Pain rad thru buttock, but not down leg. Priformis Syndr? [ ] PT [ ] Hx Pain Clinic (Injctn #1 helped, #2 did not). Occasional relief from SOMA. Trial GABAPENTIN 06/09/18.in past Anxiety and depression (Chronic) Bilateral pneumonia (Acute 04/29/14) A. Bilateral lower lobes Biliary colic (Inactive) Cirrhosis Cirrhosis of liver (Chronic) a. History of Hep C treatment. b. Liver biopsy 2005 positive for cirrhosis. 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 AFP levels every six months and ruq US every 12 months COPD (chronic obstructive pulmonary disease) (Chronic) Ongoing tobacco use. COPD (chronic obstructive pulmonary disease) (Chronic) Diabetes (Chronic) On Metformin. Diabetes mellitus DNI (do not intubate) (Acute) Essential hypertension (Chronic) Well maintained, meds tolerated. Hepatitis C HTN (hypertension) Hypertension (Chronic) Methadone dependence (Chronic) Nausea & vomiting (Acute) Neuropathy of right radial nerve (Chronic) a. recently had multiple falls and a hematoma around her humerus b. resolving Pleuritic chest pain (Acute 04/29/14) a. left sided POLST (Physician Orders for Life-Sustaining Treatment) (Acute) Polysubstance abuse (Chronic) a. h/o opiate overdose 06/2013 and 11/2013 b. recently started in [facility] program 03/13/2014 on oral methadone (missed her dose today) Shortness of breath (Acute) Spinal stenosis (Chronic) a. MRI 10/2009, showed L4-5 narrowing Tobacco abuse (Chronic) Tobacco use disorder Varices of esophagus determined by endoscopy (Acute) Surgical History Appendectomy (01/30/07) H/O: hysterectomy (Chronic) History of ankle surgery (Acute) left S/P bilateral breast lumpectomy (Acute) Family History Mother Myocardial infarction Stroke Sister Diabetes Myocardial infarction Sister Diabetes Father Diabetes Alcohol abuse Myocardial infarction Social History Smoking/Tobacco Use Status: Current every day Tobacco Type: cigarettes Smoking packs per day: 1 Smoking cigarettes per day: 20.0 Years smoked: 40 Smoking pack-years: 40.00 Quit status: considering quitting Counseling given: other Details: pt feels motivated and states she doesnt enjoy them now Alcohol Intake: never Drug use: Current Sobriety Substance use type: heroin Details: on 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 officer: No Working smoke detector in home: Yes Fire extinguisher in home: Yes Carbon monox detector in home: Yes Do you feel safe at home: Yes Do you feel safe in your relationship?: Yes Meds Home Medications and Allergies Home Medications Medication Instructions Recorded Confirmed Type triamcinolone acetonide 1 lorraine TOPICAL TID PRN #30 gm 09/07/17 01/28/20 History compressor, for nebulizer #1 each 09/28/18 01/28/20 Rx methadone 10 mg/mL oral concentrate 75 mg PO DAILY ml 09/28/18 01/28/20 History cholecalciferol (vitamin D3) 50 2,000 unit PO DAILY 01/24/19 01/28/20 History mcg (2,000 unit) capsule ipratropium 0.5 mg-albuterol 3 mg 3 ml UPD Q6H PRN PRN #90 ml 01/24/19 01/28/20 Rx (2.5 mg base)/3 mL nebulization soln lisinopril 10 mg tablet 10 mg PO DAILY #90 tab-cap 03/22/19 01/28/20 Rx aspirin 81 mg PO DAILY #30 tab 05/24/19 01/28/20 Rx fluticasone furoate 200 1 inh IH DAILY #60 each 07/06/19 01/28/20 Rx mcg-vilanterol 25 mcg/dose inhalation powder mirtazapine 30 mg tablet 30 mg PO HS #30 tab-cap 07/26/19 01/28/20 Rx bupropion HCl 300 mg 24 hr tablet, 300 mg PO DAILY #90 tab 08/16/19 01/28/20 Rx extended release food supplemt, lactose-reduced See Rx Instructions PO BID #237 ml 08/19/19 01/28/20 Rx 0.04 gram-1.05 kcal/mL oral liquid furosemide 40 mg PO BID 09/19/19 01/28/20 History gabapentin 300 mg capsule 300 mg PO TID #90 cap 10/01/19 01/28/20 Rx spironolactone 25 mg tablet 50 mg PO BID #120 tab 05/05/20 08/17/20 Rx docusate sodium [Colace] 100 mg PO TID PRN PRN #30 cap 11/01/19 01/28/20 Rx nicotine 14 mg TRANSDERMAL DAILY #30 ea 11/01/19 01/28/20 Rx polyethylene glycol 3350 17 g PO DAILY PRN PRN #510 g 11/01/19 01/28/20 Rx haloperidol lactate 2 mg/mL oral 0.5 mg PO TID PRN #15 ml MDD 1.5 mg 11/30/19 01/28/20 Rx concentrate scopolamine base 1 mg over 3 days 1 patch TD Q3D #10 each 12/12/19 01/28/20 Rx transdermal patch hydroxyzine HCl 50 mg tablet 50 mg PO QID PRN #60 tab 01/18/20 01/28/20 Rx omeprazole 20 mg capsule,delayed 40 mg PO DAILY #60 cap 01/18/20 01/28/20 Rx release ondansetron 4 mg disintegrating 4 mg PO Q8H PRN #30 tab 01/18/20 01/28/20 Rx tablet prednisone 20 mg tablet 40 mg PO DAILY #8 tab 01/18/20 01/28/20 Rx Refresh Tears 1 drp OPHTHALMIC (EYE) DIRECTED 01/23/20 01/28/20 History albuterol sulfate [Ventolin HFA] 2 puff INHALATION BID 01/23/20 01/28/20 History amoxicillin-pot clavulanate 1 tab PO BID 10 Days #20 tab 01/23/20 01/28/20 Rx [Augmentin] doxycycline hyclate 100 mg PO BID 7 Days #14 tab 01/23/20 01/28/20 Rx magnesium chloride [Mag 64] 500 mg PO BID 01/23/20 01/28/20 History prednisone See Rx Instructions .ROUTE 01/23/20 01/28/20 Rx .COMPLEX #12 tab Allergies Allergy/AdvReac Type Severity Reaction Status Date / Time gabapentin AdvReac Severe Nausea Verified 01/28/20 13:50 metaxalone [Metaxalone] AdvReac Severe nausea Verified 01/28/20 13:50 diclofenac [Diclofenac] AdvReac Intermediate contraindicated Verified 01/28/20 13:50 w/ pt's liver promethazine AdvReac Mild disoriented Verified 01/28/20 13:50 prochlorperazine AdvReac Unknown disoriented Verified 01/28/20 13:50 Exam Narrative Exam Narrative: 112/78, 105, 18, 36.7, 93% RA. Cachectic. HEENT dry oral mucosa; neck supple; lungs diffuse rhonchi; heart distant tachy and regular; abdomen soft and NT; extremities w/o edema; neuro able to answer questions briefly but drifts in and out, moves all 4s Results Labs Result diagrams: 01/28/20 14:10 01/28/20 14:10 Labs: Laboratory Results - last 24 hr 01/28/20 01/28/20 01/28/20 14:10 14:10 14:10 WBC 22.18 H RBC 5.87 H Hgb 15.6 Hct 48.0 H MCV 81.8 MCH 26.6 L MCHC 32.5 RDW 15.4 H Plt Count 310 MPV 10.3 Immature Gran % 0.7 Neutrophils % 88.5 Lymphocytes % 5.2 Monocytes % 5.5 Eosinophils % 0.0 Basophils % 0.1 Absolute Neutrophils 19.63 H Absolute Lymphocytes 1.15 L Absolute Monocytes 1.22 H Absolute Eosinophils 0.00 Absolute Basophils 0.02 VBG pH VBG pCO2 VBG pO2 VBG HCO3 VBG Total CO2 VBG O2 Saturation VBG Base Excess Sodium 136 Potassium 3.6 Chloride 94 L Carbon Dioxide 33.5 H Anion Gap 8.5 BUN 22 H Creatinine 0.50 L Estimated GFR/1.73 m2 >= 60.00 Glucose 125 H Lactate 1.1 Calcium 9.5 Total Bilirubin 0.7 AST 25 ALT 33 Alkaline Phosphatase 132 H Troponin I NT-Pro-B Natriuret Pep Total Protein 8.2 Albumin 3.7 01/28/20 01/28/20 01/28/20 14:10 14:10 14:10 WBC RBC Hgb Hct MCV MCH MCHC RDW Plt Count MPV Immature Gran % Neutrophils % Lymphocytes % Monocytes % Eosinophils % Basophils % Absolute Neutrophils Absolute Lymphocytes Absolute Monocytes Absolute Eosinophils Absolute Basophils VBG pH 7.48 H VBG pCO2 48 VBG pO2 44 VBG HCO3 36 H VBG Total CO2 31 H VBG O2 Saturation 83 VBG Base Excess 12 H Sodium Potassium Chloride Carbon Dioxide Anion Gap BUN Creatinine Estimated GFR/1.73 m2 Glucose Lactate Calcium Total Bilirubin AST ALT Alkaline Phosphatase Troponin I < 0.05 NT-Pro-B Natriuret Pep 211 Total Protein Albumin 01/28/20 17:25 WBC RBC Hgb Hct MCV MCH MCHC RDW Plt Count MPV Immature Gran % Neutrophils % Lymphocytes % Monocytes % Eosinophils % Basophils % Absolute Neutrophils Absolute Lymphocytes Absolute Monocytes Absolute Eosinophils Absolute Basophils VBG pH VBG pCO2 VBG pO2 VBG HCO3 VBG Total CO2 VBG O2 Saturation VBG Base Excess Sodium Potassium Chloride Carbon Dioxide Anion Gap BUN Creatinine Estimated GFR/1.73 m2 Glucose Lactate Calcium Total Bilirubin AST ALT Alkaline Phosphatase Troponin I < 0.05 NT-Pro-B Natriuret Pep Total Protein Albumin Last Vital Signs Temp 36.7 C 01/28/20 19:18 Pulse 105 H 01/28/20 19:18 Resp 18 01/28/20 19:18 BP 112/78 01/28/20 19:18 Pulse Ox 93 L 01/28/20 19:18 COVID-19 Screening Have you,or household,traveled outside [place] in last 14 days?: No Had IN PERSON contact w/suspected or confirmed C-19 person: No
[2020-01-28] MEDS: Lactated Ringers 1,000 ML 80 ML IV (20:59)
[2020-01-28] MEDS: cefTRIAXone 1,000 MG in Normal Saline 50 ML 100 MG IVPB (21:00)
--- NOTE | 2020-01-28 21:05 | W.SURGCON ---
Date of service: 01/29/20 Time of Service: 07:24 Assessment and Plan Assessment and plan (1) Pneumothorax: Status: Acute (2) Pneumomediastinum: Status: Acute Assessment and plan: CT reviewed. Findings show loculated small pneumothoraces and pneumomediastinum. This is most likely from a pulmonary source. The pneumothorax is small, likely loculated and does not need treatment. As a precaution, contrast study of the esophagus ordered. When acute issues addressed, may need discussion of supplemental nutrition (?feeding tube). History of Present Illness Narrative: This patient presented to the ER yesterday with chest pain, N/V. She has severe COPD and chronic N/V. She last ate two days prior to admission without dysphagia or abdominal pain. She then had a typical episode of vomiting yesterday, which occurs about 4 times a week. This is often in the morning before eating. The emesis is gastric, no blood present. The chest pressure she was feeling radiated to her back. This has resolved after treatment with Ativan. She also reports not having a BM for the past three days. This responds to Colace or Miralax at home. She reports continued weight loss. CT chest reviewed and shows bilateral medial pneumothoraces and a pneumomediastinum. The images were [place] [facility] [place] agree this was pulmonary in origin. The patient had an EGD/colonoscopy in October that showed gastritis. [facility] Medical History Abnormal CT of the chest (Acute 03/18/17) stable 2mm nodule in [facility] Annual Chest CT for lung cancer screening recommended Acute renal failure (Resolved 04/29/14) a. creatinine bumped from 0.8 to 2.9 b. h/o renal failure 06/2013, presented with creatinine 5.4, which normalized with IV fluids Acute right-sided low back pain without sciatica (Acute 06/08/17) Pain rad thru buttock, but not down leg. Priformis Syndr? [ ] PT [ ] Hx Pain Clinic (Injctn #1 helped, #2 did not). Occasional relief from SOMA. Trial GABAPENTIN 06/09/18.in past Anxiety and depression (Chronic) Bilateral pneumonia (Acute 04/29/14) A. Bilateral lower lobes Biliary colic (Inactive) Cirrhosis Cirrhosis of liver (Chronic) a. History of Hep C treatment. b. Liver biopsy 2006 positive for cirrhosis. 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 AFP levels every six months and ruq US every 12 months COPD (chronic obstructive pulmonary disease) (Chronic) Ongoing tobacco use. COPD (chronic obstructive pulmonary disease) (Chronic) Diabetes (Chronic) On Metformin. Diabetes mellitus DNI (do not intubate) (Acute) Essential hypertension (Chronic) Well maintained, meds tolerated. Hepatitis C HTN (hypertension) Hypertension (Chronic) Methadone dependence (Chronic) Nausea & vomiting (Acute) Neuropathy of right radial nerve (Chronic) a. recently had multiple falls and a hematoma around her humerus b. resolving Pleuritic chest pain (Acute 04/29/14) a. left sided POLST (Physician Orders for Life-Sustaining Treatment) (Acute) Polysubstance abuse (Chronic) a. h/o opiate overdose 06/2013 and 11/2013 b. recently started in [facility] program 03/13/2014 on oral methadone (missed her dose today) Shortness of breath (Acute) Spinal stenosis (Chronic) a. MRI 10/2009, showed L4-5 narrowing Tobacco abuse (Chronic) Tobacco use disorder Varices of esophagus determined by endoscopy (Acute) Surgical History Appendectomy (01/30/07) H/O: hysterectomy (Chronic) History of ankle surgery (Acute) left S/P bilateral breast lumpectomy (Acute) Family History Mother Myocardial infarction Stroke Sister Diabetes Myocardial infarction Sister Diabetes Father Diabetes Alcohol abuse Myocardial infarction Social History Smoking/Tobacco Use Status: Current every day Tobacco Type: cigarettes Smoking packs per day: 1 Smoking cigarettes per day: 20.0 Years smoked: 40 Smoking pack-years: 40.00 Quit status: considering quitting Counseling given: other Details: pt feels motivated and states she doesnt enjoy them now Alcohol Intake: never Drug use: Current Sobriety Substance use type: heroin Details: on [facility] clinic Adopted: No Household members: none Housing: house Communication Needs: None Pets and animals: Yes Pets and animals: cat(s) What is your relationship status?: Panel score (0-1 are the most socially isolated patients): 0 What type of physical activity do you participate in: none Seatbelt use: always Drive intox or ride w/intox intermodal truck driver: No Working smoke detector in home: Yes Fire extinguisher in home: Yes Carbon monox detector in home: Yes Do you feel safe at home: Yes Do you feel safe in your relationship?: Yes Exam Narrative Exam Narrative: No acute distress No subcutaneous air palpated Abdomen soft, non tender. Results Last Vital Signs Temp 98.6 F 01/28/20 20:45 Pulse 103 H 01/28/20 20:45 Resp 18 01/28/20 20:45 BP 107/74 01/28/20 20:45 Pulse Ox 93 L 01/28/20 20:45 Labs Result diagrams: 01/29/20 06:23 01/29/20 06:23 Labs: Laboratory Results - last 24 hr 01/28/20 01/28/20 01/28/20 14:10 14:10 14:10 WBC 22.18 H RBC 5.87 H Hgb 15.6 Hct 48.0 H MCV 81.8 MCH 26.6 L MCHC 32.5 RDW 15.4 H Plt Count 310 MPV 10.3 Immature Gran % 0.7 Neutrophils % 88.5 Lymphocytes % 5.2 Monocytes % 5.5 Eosinophils % 0.0 Basophils % 0.1 Absolute Neutrophils 19.63 H Absolute Lymphocytes 1.15 L Absolute Monocytes 1.22 H Absolute Eosinophils 0.00 Absolute Basophils 0.02 VBG pH VBG pCO2 VBG pO2 VBG HCO3 VBG Total CO2 VBG O2 Saturation VBG Base Excess Sodium 136 Potassium 3.6 Chloride 94 L Carbon Dioxide 33.5 H Anion Gap 8.5 BUN 22 H Creatinine 0.50 L Estimated GFR/1.73 m2 >= 60.00 Glucose 125 H Lactate 1.1 Calcium 9.5 Total Bilirubin 0.7 AST 25 ALT 33 Alkaline Phosphatase 132 H Troponin I NT-Pro-B Natriuret Pep Total Protein 8.2 Albumin 3.7 01/28/20 01/28/20 01/28/20 14:10 14:10 14:10 WBC RBC Hgb Hct MCV MCH MCHC RDW Plt Count MPV Immature Gran % Neutrophils % Lymphocytes % Monocytes % Eosinophils % Basophils % Absolute Neutrophils Absolute Lymphocytes Absolute Monocytes Absolute Eosinophils Absolute Basophils VBG pH 7.48 H VBG pCO2 48 VBG pO2 44 VBG HCO3 36 H VBG Total CO2 31 H VBG O2 Saturation 83 VBG Base Excess 12 H Sodium Potassium Chloride Carbon Dioxide Anion Gap BUN Creatinine Estimated GFR/1.73 m2 Glucose Lactate Calcium Total Bilirubin AST ALT Alkaline Phosphatase Troponin I < 0.05 NT-Pro-B Natriuret Pep 211 Total Protein Albumin 01/28/20 17:25 WBC RBC Hgb Hct MCV MCH MCHC RDW Plt Count MPV Immature Gran % Neutrophils % Lymphocytes % Monocytes % Eosinophils % Basophils % Absolute Neutrophils Absolute Lymphocytes Absolute Monocytes Absolute Eosinophils Absolute Basophils VBG pH VBG pCO2 VBG pO2 VBG HCO3 VBG Total CO2 VBG O2 Saturation VBG Base Excess Sodium Potassium Chloride Carbon Dioxide Anion Gap BUN Creatinine Estimated GFR/1.73 m2 Glucose Lactate Calcium Total Bilirubin AST ALT Alkaline Phosphatase Troponin I < 0.05 NT-Pro-B Natriuret Pep Total Protein Albumin
[2020-01-28] MEDS: DOXYCYCLINE 100 MG in Normal Saline 100 ML IVPB (21:10)
[2020-01-28] MEDS: Albuterol/Ipratropium 3 ML UPD VIAL UPD (22:28)
[2020-01-28] MEDS: Mirtazapine 15 MG TAB 30 MG PO (22:29)
[2020-01-29] VITALS (14 sets, daily range): BP systolic 114–138; BP diastolic 73–88; PULSE 61–104; RESP 2–20; TEMP 36.2–36.9; O2SAT 81–100
[2020-01-29 06:52] LABS: Anion Gap 6.3 mmol/L (3-11); BUN 16 mg/dL (7-18); CO2 30.7 mmol/L (21.0-32.0); CREATININE 0.46 mg/dL (0.55-1.02); Calcium 8.2 mg/dL (8.5-10.1); Chloride 101 mmol/L (98-107); Glucose 70 mg/dL (74-106); Potassium 3.5 mmol/L (3.5-5.1); Sodium 138 mmol/L (136-145)
[2020-01-29 06:55] LABS: HCT 40.7 % (36.0-46.0); MCH 26.6 pg (27.0-33.0); MCHC 31.9 % (32.0-36.0); MCV 83.2 fL (80-95); MPV 10.6 fL (8.0-11.0); Platelet Count 214 10^3/uL (130-400); RBC 4.89 10^6/uL (3.93-5.22); RDW 15.7 % (11.7-14.6); RDW-SD 47.1 fL; WBC 20.42 10^3/uL (4.4-10.8)
[2020-01-29] MEDS: DOXYCYCLINE 100 MG in Normal Saline 100 ML IVPB ×2 (09:15→21:35)
[2020-01-29] MEDS: Normal Saline Flush 10 ML SYR IVP ×2 (09:20→21:40)
[2020-01-29] MEDS: Lisinopril 10 MG TAB PO (09:28)
[2020-01-29] MEDS: predniSONE 20 MG TAB 40 MG PO (09:30)
[2020-01-29] MEDS: Gabapentin 300 MG CAP PO ×3 (09:30→21:36)
[2020-01-29] MEDS: buPROPion-XL 150 MG TABCR 300 MG PO (09:30)
[2020-01-29] MEDS: Magnesium Oxide 400 MG TAB PO ×2 (09:31→21:36)
[2020-01-29] MEDS: Spironolactone 25 MG TAB 50 MG PO ×2 (09:31→21:35)
[2020-01-29] MEDS: Aspirin E.C. 81 MG TABEC PO (09:31)
[2020-01-29] MEDS: Omeprazole 20 MG CAPCR 40 MG PO (09:31)
[2020-01-29] MEDS: Methadone Liquid 10 MG/ML 75 MG PO (09:32)
[2020-01-29] MEDS: Albuterol/Ipratropium 3 ML UPD VIAL UPD ×3 (09:44→21:36)
--- NOTE | 2020-01-29 11:25 | INITIAL_ITS ---
- If Service Date Differs Date of service: 01/29/20 Time of Service: 11:25 Care Management Initial Assess REASON FOR HOSPITALIZATION:: COPD, Pneumonia PAST MEDICAL HISTORY/PAST SURGICAL HISTORY:: Medical History. Abnormal CT of the chest (Acute 03/18/17). stable 2mm nodule in [facility]. Annual Chest CT for lung cancer screening recommended. Acute renal failure (Resolved 04/29/14). a. creatinine bumped from 0.8 to 2.9. b. h/o renal failure 06/2013, presented with creatinine 5.4, which normalized with IV fluids. Acute right-sided low back pain without sciatica (Acute 06/08/17). Pain rad thru buttock, but not down leg. Priformis Syndr? [ ] PT [ ] Hx Pain Clinic (Injctn #1 helped, #2 did not). Occasional relief from SOMA. Trial GABAPENTIN 06/09/18.in past. Anxiety and depression (Chronic). Bilateral pneumonia (Acute 04/29/14). A. Bilateral low er lobes. Biliary colic (Inactive). Cirrhosis. Cirrhosis of liver (Chronic). a. History of Hep C treatment. b. Liver biopsy 2005 positive for cirrhosis. 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 a. AFP levels every six months and ruq US every 12 months. COPD (chronic obstructive pulmonary disease) (Chronic). Ongoing tobacco use. COPD (chronic obstructive pulmonary disease) (Chronic). Diabetes (Chronic). On Metformin. Diabetes mellitus. DNI (do not intubate) (Acute). Essential hypertension (Chronic). Well maintained, meds tolerated. Hepatitis C. HTN (hypertension). Hypertension (Chronic). Methadone dependence (Chronic). Nausea & vomiting (Acute). Neuropathy of right radial nerve (Chronic). a. recently had multiple falls and a hematoma around her humerus. b. resolving. Pleuritic chest pain (Acute 04/29/14). a. left sided. POLST (Physician Orders for Life-Sustaining Treatment) (Acute). Polysubstance abuse (Chronic). a. h/o opiate overdose 06/2013 and 11/2013. b. recently started in [facility] program 03/13/2014 on oral methadone (missed her dose today). Shortness of breath (Acute). Spinal stenosis (Chronic). a. MRI 10/2009, showed L4-5 narrowing. Tobacco abuse (Chronic). Tobacco use disorder. Varices of esophagus determined by endoscopy (Acute). Surgical History. Appendectomy (01/30/07). H/O: hysterectomy (Chronic). History of ankle surgery (Acute). left. S/P bilateral breast lumpectomy (Acute) PREVIOUS FUNCTIONAL STATUS/SOCIAL/FAMILY SUPPORTS:: Kira lives alone in a mobile home in [facility]. She uses [facility] for transportation and has many community supports which include Meals on Wheels, Food [place], fuel assistance and [employer]. She has also recently received a eloy from [employer] for improvements to her home.Kira is independent at baseline. She attends a woman's support group at [facility] on and has several close friends who are very supportive. CURRENT FUNCTIONAL STATUS:: CM was not able to enter Kira's room due to Covid r/o. Later, once her Covid test was reported negative, CM attempted to meet with her, and she was sleeping. Per MD, there is concern regarding her low weight/BMI, and a PEG tube was considered, which she declined at this time. CM received a call from Nadiya Copeland, her case assembler at [facility], who is also concerned about her nutrition, and is attempted to get a referral to [facility] [place] [place] from her PCP. CM will continue to follow. ADVANCE DIRECTIVES:: None on file. Has patient been provided with info about the portal/API?: Yes Did the patient sign up for the portal?: No CODE STATUS:: DNI INSURANCE COVERAGE / FINANCIAL ISSUES:: [facility] CURRENT HOME/COMMUNITY SERVICES/EQUIPMENT:: Meals on Wheels, [facility], [employer], [place] [employer], [facility]. PRIMARY CARE PHYSICIAN:: Kirsten Friedman POTENTIAL DISCHARGE NEEDS:: Follow up with PCP and discharge plan of care PATIENT/FAMILY EDUCATION NEEDS:: Discharge plan, limitations, follow up plan, Ask Me Three ANTICIPATED BARRIERS TO DISCHARGE:: None identified at this time. TRANSPORTATION:: Via private vehicle with a friend vs [facility] PLAN:: Anticipate Kira will return home with a resumption of services when medically cleared. She will need a last dose letter for [facility]. She will follow up with her PCP and discharge plan of care. CM will continue to follow and support discharge planning considerations.
[2020-01-29] MEDS: Lactated Ringers 1,000 ML 80 ML IV ×2 (11:32→23:33)
[2020-01-29 14:26] LABS: COVID-19 RT-PCR UVMMC Result Negative (Negative)
[2020-01-29] MEDS: dilTIAZem 60 MG TAB PO ×2 (14:44→21:36)
[2020-01-29] MEDS: Scopolamine 1 MG/3 DAYS PATCH TD (14:45)
--- NOTE | 2020-01-29 14:49 | W.PM.PROGNOT ---
Date of Service Date of service: 01/29/20 Time of Service: 14:49 Assessment and Plan Assessment and plan (1) Pneumomediastinum: Status: Acute Assessment and plan: Likely d/t ruptured pulmonary bleb; severe COPD R/O esophageal perforation with barium swallow; pending. Pain improved. (2) Acute exacerbation of chronic obstructive pulmonary disease: Status: Acute Assessment and plan: Scheduled Duonebs and Pulmicort. PRN albuterol nebs (3) CAP (community acquired pneumonia): Status: Acute Assessment and plan: Cont ceftriaxone and IV doxycycline WBC count elevated but improved; monitor (4) Methadone dependence: Status: Chronic Assessment and plan: Cont home dose (5) Failure to thrive in adult: Status: Acute Assessment and plan: cachexia. Discussed PEG tube; she would not like to pursue this at this time and states that she would go to [facility] if she decided to proceed with a PEG tube. Initiate Marinol 5 mg po BID. Subjective Subjective Patient reports: no new complaints, pain is less (chest wall) and no bowel movement Interval history since last seen: Less SOB No F/C No emesis Exam Const General: cooperative, no acute distress and frail appearing Nutritional Appearance: underweight Orientation: alert, oriented to person and oriented to place Chest Chest: normal palpation of entire chest wall (No pain with compression) Resp Effort & Inspection: normal respiratory effort Auscultation: clear to auscultation bilaterally and diminished lung sounds Cardio Jugular venous pressure: no JVD Rate: regular rate Rhythm: regular rhythm Heart Sounds: S1 normal and S2 normal GI Palpation: soft Percussion: normal to percussion Auscultation: normal bowel sounds Extrem General: no clubbing, cyanosis or edema Objective Objective Clinical Data: Abnormal lab results 01/29/20 01/29/20 Range/Units 06:23 06:23 WBC 20.42 H (4.4-10.8) 10^3/uL MCH 26.6 L (27.0-33.0) pg MCHC 31.9 L (32.0-36.0) % RDW 15.7 H (11.7-14.6) % Creatinine 0.46 L (0.55-1.02) mg/dL Glucose 70 L D (74-106) mg/dL Calcium 8.2 L (8.5-10.1) mg/dL Vital Signs Temperature 36.2 C L 01/29/20 12:05 Temperature Source Tympanic 01/29/20 12:05 Pulse 89 01/29/20 12:05 Pulse Rhythm Regular 01/29/20 09:30 Pulse 100 H 01/28/20 21:01 Respiratory Rate 10 L 01/29/20 12:05 Respiratory Effort Labored 01/29/20 09:30 Respiratory Depth Deep 01/29/20 09:30 Respiratory Pattern Normal 01/29/20 09:30 Blood Pressure 124/83 01/29/20 12:05 Blood Pressure Mean 81 01/28/20 21:00 Blood Pressure Position Supine 01/28/20 13:43 Pulse Oximetry 94 L 01/29/20 12:05 Oxygen Delivery Method Nasal Cannula 01/29/20 12:05 Oxygen Flow Rate 0.5 01/29/20 12:05 Pain Level 3 01/29/20 12:05 Comment 01/29/20 12:05 Intake & Output 01/28/20 01/29/20 01/29/20 23:59 11:59 23:59 Intake Total 215 / 215 1100 / 1100 Output Total 650 / 650 Balance 215 / 215 450 / 450 Weight 31.5 kg Intake: IV 15 1100 / 1100 Oral 200 / 200 Output: Urine 650 / 650 Other: Urine Color Dark Eli Urine Appearance Cloudy Urine Odor Strong Comment cloudy, light eli yellow Voiding Methods Bedside Commode Laboratory Results WBC 20.42 10^3/uL (4.4-10.8) H 01/29/20 06:23 RBC 4.89 10^6/uL (3.93-5.22) 01/29/20 06:23 Hgb 13.0 g/dL (11.2-15.7) D 01/29/20 06:23 Hct 40.7 % (36.0-46.0) 01/29/20 06:23 MCV 83.2 fL (80-95) 01/29/20 06:23 MCH 26.6 pg (27.0-33.0) L 01/29/20 06:23 MCHC 31.9 % (32.0-36.0) L 01/29/20 06:23 RDW 15.7 % (11.7-14.6) H 01/29/20 06:23 Plt Count 214 10^3/uL (130-400) 01/29/20 06:23 MPV 10.6 fL (8.0-11.0) 01/29/20 06:23 Immature Gran % 0.7 01/28/20 14:10 Neutrophils % 88.5 01/28/20 14:10 Lymphocytes % 5.2 01/28/20 14:10 Monocytes % 5.5 01/28/20 14:10 Eosinophils % 0.0 01/28/20 14:10 Basophils % 0.1 01/28/20 14:10 Absolute Neutrophils 19.63 10^3/uL (1.2-6.7) H 01/28/20 14:10 Absolute Lymphocytes 1.15 10^3/uL (1.2-3.4) L 01/28/20 14:10 Absolute Monocytes 1.22 10^3/uL (0.1-0.8) H 01/28/20 14:10 Absolute Eosinophils 0.00 10^3/uL (0.0-0.7) 01/28/20 14:10 Absolute Basophils 0.02 10^3/uL (0.0-0.2) 01/28/20 14:10 VBG pH 7.48 (7.31-7.41) H 01/28/20 14:10 VBG pCO2 48 mmHg (41-51) 01/28/20 14:10 VBG pO2 44 mmHg 01/28/20 14:10 VBG HCO3 36 mmol/L (23-28) H 01/28/20 14:10 VBG Total CO2 31 mmol/L (24-29) H 01/28/20 14:10 VBG O2 Saturation 83 % 01/28/20 14:10 VBG Base Excess 12 mmol/L (-2-3) H 01/28/20 14:10 Sodium 138 mmol/L (136-145) 01/29/20 06:23 Potassium 3.5 mmol/L (3.5-5.1) 01/29/20 06:23 Chloride 101 mmol/L (98-107) 01/29/20 06:23 Carbon Dioxide 30.7 mmol/L (21.0-32.0) 01/29/20 06:23 Anion Gap 6.3 mmol/L (3-11) 01/29/20 06:23 BUN 16 mg/dL (7-18) D 01/29/20 06:23 Creatinine 0.46 mg/dL (0.55-1.02) L 01/29/20 06:23 Estimated GFR/1.73 m2 >= 60.00 (mL/min/1.73m2) 01/29/20 06:23 Glucose 70 mg/dL (74-106) L D 01/29/20 06:23 Lactate 1.1 mmol/L (0.6-1.4) 01/28/20 14:10 Calcium 8.2 mg/dL (8.5-10.1) L 01/29/20 06:23 Total Bilirubin 0.7 mg/dL (0.2-1.0) 01/28/20 14:10 AST 25 U/L (15-37) 01/28/20 14:10 ALT 33 U/L (14-59) 01/28/20 14:10 Alkaline Phosphatase 132 U/L (46-116) H 01/28/20 14:10 Troponin I < 0.05 ng/mL (<0.06) 01/28/20 17:25 NT-Pro-B Natriuret Pep 211 pg/mL (<300) 01/28/20 14:10 Total Protein 8.2 g/dL (6.4-8.2) 01/28/20 14:10 Albumin 3.7 g/dL (3.4-5.0) 01/28/20 14:10 COVID-19 PCR Negative (Negative) 01/28/20 21:20 Nasopharyn COVID-19 PCR Not Applicable 01/28/20 21:20 Ref Test Perform Site [place] lab 01/28/20 21:20
[2020-01-29] MEDS: Bisacodyl 10 MG SUPP PR (16:15)
[2020-01-29] MEDS: Milk of Magnesia 30 ML CUP PO (16:15)
[2020-01-29] MEDS: Dronabinol 2.5 MG CAP 5 MG PO (21:35)
[2020-01-29] MEDS: Budesonide 0.25 MG/2 ML UPD VIAL UPD (21:36)
[2020-01-29] MEDS: Mirtazapine 15 MG TAB 30 MG PO (21:36)
[2020-01-29] MEDS: cefTRIAXone 1 GM/50 ML BAG IVPB (21:38)
[2020-01-30] VITALS (15 sets, daily range): BP systolic 102–116; BP diastolic 64–78; PULSE 57–84; RESP 2–20; TEMP 35–37.4; O2SAT 92–100
--- NOTE | 2020-01-30 | DI.RAD_ITS ---
EXAM: XR PORTABLE CHEST AP CLINICAL HISTORY: respiratory depression, known small pneumothoraces TECHNIQUE: 2D digital imaging was performed. COMPARISON: CR,RF RF BARIUM SWALLOW from 01/30/2020 FINDINGS: There is no visible pneumothorax. No free air seen beneath the diaphragm. Old right rib fractures a re seen. There are severe underlying fibrotic changes. There is question of interval increase in th e densities at the the right lung base compared with the previous exam which could represent pneumoni a. IMPRESSION: Question of infiltrate at the right lung base. No visible pneumothorax. Severe fibrotic changes. DATA REPOSITORY: RADIATION DOSE DELIVERED:
[2020-01-30] MEDS: Albuterol/Ipratropium 3 ML UPD VIAL UPD ×4 (04:10→23:39)
[2020-01-30] MEDS: Lactated Ringers 1,000 ML 80 ML IV ×2 (06:18→22:40)
[2020-01-30 07:10] LABS: Absolute Basophil Count 0.02 10^3/uL (0.0-0.2); Absolute Lymphocyte Count 2.44 10^3/uL (1.2-3.4); Absolute Monocyte Count 1.37 10^3/uL (0.1-0.8); Absolute Neutrophil Count 16.23 10^3/uL (1.2-6.7); Anion Gap 5.8 mmol/L (3-11); BUN 9 mg/dL (7-18); Basophils % 0.1; CO2 30.2 mmol/L (21.0-32.0); CREATININE 0.45 mg/dL (0.55-1.02); Calcium 8.4 mg/dL (8.5-10.1); Chloride 101 mmol/L (98-107); Eosinophils % 0.1; Glucose 72 mg/dL (74-106); HCT 40.9 % (36.0-46.0); HGB 12.4 g/dL (11.2-15.7); Immature Grans % 0.5; Lymphocytes % 12.1; MCH 25.9 pg (27.0-33.0); MCHC 30.3 % (32.0-36.0); MCV 85.6 fL (80-95); MPV 10.2 fL (8.0-11.0); Monocytes % 6.8; Neutrophils % 80.4; Nucleated RBC 0 %; Platelet Count 251 10^3/uL (130-400); Potassium 3.6 mmol/L (3.5-5.1); RBC 4.78 10^6/uL (3.93-5.22); RDW 15.4 % (11.7-14.6); RDW-SD 48.3 fL; Sodium 137 mmol/L (136-145); WBC 20.19 10^3/uL (4.4-10.8)
[2020-01-30 07:11] LABS: Absolute Eosinophil Count 0.02 10^3/uL (0.0-0.7)
[2020-01-30] MEDS: Budesonide 0.25 MG/2 ML UPD VIAL UPD ×2 (08:00→20:51)
--- NOTE | 2020-01-30 08:00 | DI.RAD_ITS ---
EXAM: RF BARIUM SWALLOW CLINICAL HISTORY: pneumomediastinum TECHNIQUE: 2D and realtime digital imaging was performed. CONTRAST MATERIAL: Omnipaque 350 barium tablet were administered PO. COMPARISON: CT CT CHEST PE CTA from 01/28/2020 FINDINGS: The PA and lateral turret lathe operator films show normal heart size. The lungs again show severe pulmonary fibrosi s. Old right rib fractures are present. There is a decreased quantity of pneumomediastinum. The st omach does not appear abnormally distended. The exam is limited by patient immobility. Patient was also reluctant to swallow the contrast. Ther e is no evidence of esophageal perforation. There is a small hiatal hernia. There is mild narrowing of the distal esophagus. The barium tablet stuck at this area briefly. There is some fold thickeni ng at the fundus of the stomach, adjacent to the GE junction.. No ulcer is visible. IMPRESSION: Limited exam. No evidence of esophageal perforation. Mild narrowing and fold thickening at the GE j unction.
[2020-01-30] MEDS: DOXYCYCLINE 100 MG in Normal Saline 100 ML IVPB ×2 (08:15→20:52)
--- NOTE | 2020-01-30 09:06 | W.PM.PROGNOT ---
Date of Service Date of service: 01/30/20 Time of Service: 06:15 Assessment and Plan Assessment and plan (1) Pneumothorax: Status: Acute Qualifiers: Pneumothorax type: spontaneous, primary Qualified Code(s): J93.11 - Primary spontaneous pneumothorax (2) Pneumomediastinum: Status: Acute Assessment and plan: CT reviewed. Findings show loculated small pneumothoraces and pneumomediastinum. This is most likely from a pulmonary source. The pneumothorax is small, likely loculated and does not need treatment. Barium swallow was negative for esophageal leak. From Surgical standpoint patient can be discharged. No follow up needed with surgery Subjective Subjective Interval history since last seen: Mrs. Odonnell is not complaining of chest pain or SOB. Her biggest complaint is that she wants to eat. She is scheduled for a Barium swallow this morning. If normal she can eat and be discharged. Exam Resp Effort & Inspection: normal respiratory effort Auscultation: clear to auscultation bilaterally Objective Objective Clinical Data: Abnormal lab results 01/30/20 01/30/20 Range/Units 06:49 06:49 WBC 20.19 H (4.4-10.8) 10^3/uL MCH 25.9 L (27.0-33.0) pg MCHC 30.3 L (32.0-36.0) % RDW 15.4 H (11.7-14.6) % Absolute Neutrophils 16.23 H (1.2-6.7) 10^3/uL Absolute Monocytes 1.37 H (0.1-0.8) 10^3/uL Creatinine 0.45 L (0.55-1.02) mg/dL Glucose 72 L (74-106) mg/dL Calcium 8.4 L (8.5-10.1) mg/dL Vital Signs Temperature 97.9 F 01/30/20 07:41 Temperature Source Tympanic 01/30/20 07:41 Pulse 57 L 01/30/20 07:41 Pulse Rhythm Regular 01/30/20 04:19 Pulse 100 H 01/28/20 21:01 Respiratory Rate 18 01/30/20 07:41 Respiratory Effort Non-Labored 01/30/20 04:19 Respiratory Depth Normal 01/30/20 04:19 Respiratory Pattern Normal 01/30/20 04:19 Blood Pressure 102/64 01/30/20 07:41 Blood Pressure Mean 81 01/28/20 21:00 Blood Pressure Position Supine 01/28/20 13:43 Pulse Oximetry 94 L 01/30/20 07:41 Oxygen Delivery Method Nasal Cannula 01/30/20 07:41 Oxygen Flow Rate 0.5 01/30/20 07:41 Pain Level 7 01/30/20 07:41 Comment 01/30/20 00:21 Intake & Output 01/29/20 01/29/20 01/30/20 11:59 23:59 11:59 Intake Total 1100 / 9.333 929.333 / 9.333 780 / 780 Output Total 650 / 950 300 / 950 700 / 700 Balance 450 / 1079.333 629.333 / 1079.333 80 / 80 Intake: IV 1100 / 9.333 929.333 / 2028.333 540 / 540 Oral 240 / 240 Output: Urine 650 / 950 300 / 950 700 / 700 Other: Urine Color Dark Eli Yellow Light Eli Urine Appearance Cloudy Clear Clear Urine Odor Strong None Comment cloudy, light eli yellow pt voided earlier per pt report Voiding Methods Bedside Commode Bedside Commode Bedside Commode Laboratory Results WBC 20.19 10^3/uL (4.4-10.8) H 01/30/20 06:49 RBC 4.78 10^6/uL (3.93-5.22) 01/30/20 06:49 Hgb 12.4 g/dL (11.2-15.7) 01/30/20 06:49 Hct 40.9 % (36.0-46.0) 01/30/20 06:49 MCV 85.6 fL (80-95) 01/30/20 06:49 MCH 25.9 pg (27.0-33.0) L 01/30/20 06:49 MCHC 30.3 % (32.0-36.0) L 01/30/20 06:49 RDW 15.4 % (11.7-14.6) H 01/30/20 06:49 Plt Count 251 10^3/uL (130-400) 01/30/20 06:49 MPV 10.2 fL (8.0-11.0) 01/30/20 06:49 Immature Gran % 0.5 01/30/20 06:49 Neutrophils % 80.4 01/30/20 06:49 Lymphocytes % 12.1 01/30/20 06:49 Monocytes % 6.8 01/30/20 06:49 Eosinophils % 0.1 01/30/20 06:49 Basophils % 0.1 01/30/20 06:49 Nucleated RBC % 0 % 01/30/20 06:49 Absolute Neutrophils 16.23 10^3/uL (1.2-6.7) H 01/30/20 06:49 Absolute Lymphocytes 2.44 10^3/uL (1.2-3.4) 01/30/20 06:49 Absolute Monocytes 1.37 10^3/uL (0.1-0.8) H 01/30/20 06:49 Absolute Eosinophils 0.02 10^3/uL (0.0-0.7) 01/30/20 06:49 Absolute Basophils 0.02 10^3/uL (0.0-0.2) 01/30/20 06:49 VBG pH 7.48 (7.31-7.41) H 01/28/20 14:10 VBG pCO2 48 mmHg (41-51) 01/28/20 14:10 VBG pO2 44 mmHg 01/28/20 14:10 VBG HCO3 36 mmol/L (23-28) H 01/28/20 14:10 VBG Total CO2 31 mmol/L (24-29) H 01/28/20 14:10 VBG O2 Saturation 83 % 01/28/20 14:10 VBG Base Excess 12 mmol/L (-2-3) H 01/28/20 14:10 Sodium 137 mmol/L (136-145) 01/30/20 06:49 Potassium 3.6 mmol/L (3.5-5.1) 01/30/20 06:49 Chloride 101 mmol/L (98-107) 01/30/20 06:49 Carbon Dioxide 30.2 mmol/L (21.0-32.0) 01/30/20 06:49 Anion Gap 5.8 mmol/L (3-11) 01/30/20 06:49 BUN 9 mg/dL (7-18) D 01/30/20 06:49 Creatinine 0.45 mg/dL (0.55-1.02) L 01/30/20 06:49 Estimated GFR/1.73 m2 >= 60.00 (mL/min/1.73m2) 01/30/20 06:49 Glucose 72 mg/dL (74-106) L 01/30/20 06:49 Lactate 1.1 mmol/L (0.6-1.4) 01/28/20 14:10 Calcium 8.4 mg/dL (8.5-10.1) L 01/30/20 06:49 Total Bilirubin 0.7 mg/dL (0.2-1.0) 01/28/20 14:10 AST 25 U/L (15-37) 01/28/20 14:10 ALT 33 U/L (14-59) 01/28/20 14:10 Alkaline Phosphatase 132 U/L (46-116) H 01/28/20 14:10 Troponin I < 0.05 ng/mL (<0.06) 01/28/20 17:25 NT-Pro-B Natriuret Pep 211 pg/mL (<300) 01/28/20 14:10 Total Protein 8.2 g/dL (6.4-8.2) 01/28/20 14:10 Albumin 3.7 g/dL (3.4-5.0) 01/28/20 14:10 COVID-19 PCR Negative (Negative) 01/28/20 21:20 Nasopharyn COVID-19 PCR Not Applicable 01/28/20 21:20 Ref Test Perform Site [facility] lab 01/28/20 21:20
[2020-01-30] MEDS: Barium Sulfate 60% W/V 355 ML BTL PO (10:23)
[2020-01-30] MEDS: Simethicone/Sod Bicarb/Cit Ac, 4 gram PACKET 1 PACKET PO (10:25)
[2020-01-30] MEDS: Barium Sulfate 700 MG TAB PO (10:25)
[2020-01-30] MEDS: Methadone Liquid 10 MG/ML 75 MG PO (12:08)
[2020-01-30] MEDS: Gabapentin 300 MG CAP PO ×2 (12:09→20:51)
[2020-01-30] MEDS: Dronabinol 2.5 MG CAP 5 MG PO ×2 (12:09→20:50)
[2020-01-30] MEDS: predniSONE 20 MG TAB 40 MG PO (12:10)
[2020-01-30] MEDS: buPROPion-XL 150 MG TABCR 300 MG PO (12:10)
[2020-01-30] MEDS: Lisinopril 10 MG TAB PO (12:10)
[2020-01-30] MEDS: Spironolactone 25 MG TAB 50 MG PO ×2 (12:11→20:51)
[2020-01-30] MEDS: Omeprazole 20 MG CAPCR 40 MG PO (12:11)
[2020-01-30] MEDS: Magnesium Oxide 400 MG TAB PO ×2 (12:11→20:51)
[2020-01-30] MEDS: dilTIAZem 60 MG TAB PO ×2 (12:11→20:50)
[2020-01-30] MEDS: Aspirin E.C. 81 MG TABEC PO (12:12)
--- NOTE | 2020-01-30 12:21 | PGE_ITS ---
Date of Service Date of service: 01/30/20 Time of Service: 12:23 Assessment and Plan Assessment and plan (1) Failure to thrive in adult: Status: Acute Assessment and plan: Pt states she has an appetite today; was NPO since MN for her barium swallow. Marinol was initiated yesterday (2) Pneumomediastinum: Status: Acute Assessment and plan: No current chest wall pain. Barium swallow showed no evidence of an esophageal perforation. Source most likely from a pulmonary bleb. (3) Pneumonia: Status: Acute Assessment and plan: Cont Rocephin and IV doxycycline today. Likely can change to po antibiotics in AM. WBC count still elevated; steroid effect from IV steroid in ED and prednisone 40mg daily? Monitor WBC count. O2 saturations of 100% on 2L NC (4) Acute exacerbation of chronic obstructive pulmonary disease: Status: Acute Assessment and plan: Improved clinically. Cont Duonebs and Pulmicort. Decrease prednisone to 20mg daily. Subjective Subjective Patient reports: no new complaints, feels better and bowel movement Interval history since last seen: States she is hungry because she hasn't eaten for 2 days. No chest pain. Exam Const General: cooperative Nutritional Appearance: underweight Orientation: alert and oriented x3 Resp Effort & Inspection: normal respiratory effort Auscultation: clear to auscultation bilaterally Cardio Rate: regular rate Rhythm: regular rhythm Heart Sounds: S1 normal GI Palpation: soft Auscultation: normal bowel sounds Neuro General: patient alert Cognition: normal cognition Speech: speech normal Objective Objective Clinical Data: Abnormal lab results 01/30/20 01/30/20 Range/Units 06:49 06:49 WBC 20.19 H (4.4-10.8) 10^3/uL MCH 25.9 L (27.0-33.0) pg MCHC 30.3 L (32.0-36.0) % RDW 15.4 H (11.7-14.6) % Absolute Neutrophils 16.23 H (1.2-6.7) 10^3/uL Absolute Monocytes 1.37 H (0.1-0.8) 10^3/uL Creatinine 0.45 L (0.55-1.02) mg/dL Glucose 72 L (74-106) mg/dL Calcium 8.4 L (8.5-10.1) mg/dL Vital Signs Temperature 36.6 C 01/30/20 11:30 Temperature Source Tympanic 01/30/20 11:30 Pulse 78 01/30/20 11:30 Pulse Rhythm Regular 01/30/20 08:05 Pulse 100 H 01/28/20 21:01 Respiratory Rate 18 01/30/20 11:30 Respiratory Effort Non-Labored 01/30/20 08:05 Respiratory Depth Normal 01/30/20 08:05 Respiratory Pattern Normal 01/30/20 08:05 Blood Pressure 115/74 01/30/20 11:30 Blood Pressure Mean 81 01/28/20 21:00 Blood Pressure Position Supine 01/28/20 13:43 Pulse Oximetry 100 01/30/20 11:30 Oxygen Delivery Method Nasal Cannula 01/30/20 11:30 Oxygen Flow Rate 2 01/30/20 11:30 Pain Level 6 01/30/20 12:08 Comment 01/30/20 00:21 Intake & Output 01/29/20 01/30/20 01/30/20 23:59 11:59 23:59 Intake Total 929.333 / 2029.333 780 / 780 Output Total 300 / 950 700 / 700 Balance 629.333 / 1079.333 80 / 80 Intake: IV 929.333 / 2029.333 540 / 540 Oral 240 / 240 Output: Urine 300 / 950 700 / 700 Other: Urine Color Yellow Yellow Urine Appearance Clear Clear Urine Odor None Normal Comment pt voided earlier per pt report Voiding Methods Bedside Commode Toilet Laboratory Results WBC 20.19 10^3/uL (4.4-10.8) H 01/30/20 06:49 RBC 4.78 10^6/uL (3.93-5.22) 01/30/20 06:49 Hgb 12.4 g/dL (11.2-15.7) 01/30/20 06:49 Hct 40.9 % (36.0-46.0) 01/30/20 06:49 MCV 85.6 fL (80-95) 01/30/20 06:49 MCH 25.9 pg (27.0-33.0) L 01/30/20 06:49 MCHC 30.3 % (32.0-36.0) L 01/30/20 06:49 RDW 15.4 % (11.7-14.6) H 01/30/20 06:49 Plt Count 251 10^3/uL (130-400) 01/30/20 06:49 MPV 10.2 fL (8.0-11.0) 01/30/20 06:49 Immature Gran % 0.5 01/30/20 06:49 Neutrophils % 80.4 01/30/20 06:49 Lymphocytes % 12.1 01/30/20 06:49 Monocytes % 6.8 01/30/20 06:49 Eosinophils % 0.1 01/30/20 06:49 Basophils % 0.1 01/30/20 06:49 Nucleated RBC % 0 % 01/30/20 06:49 Absolute Neutrophils 16.23 10^3/uL (1.2-6.7) H 01/30/20 06:49 Absolute Lymphocytes 2.44 10^3/uL (1.2-3.4) 01/30/20 06:49 Absolute Monocytes 1.37 10^3/uL (0.1-0.8) H 01/30/20 06:49 Absolute Eosinophils 0.02 10^3/uL (0.0-0.7) 01/30/20 06:49 Absolute Basophils 0.02 10^3/uL (0.0-0.2) 01/30/20 06:49 VBG pH 7.48 (7.31-7.41) H 01/28/20 14:10 VBG pCO2 48 mmHg (41-51) 01/28/20 14:10 VBG pO2 44 mmHg 01/28/20 14:10 VBG HCO3 36 mmol/L (23-28) H 01/28/20 14:10 VBG Total CO2 31 mmol/L (24-29) H 01/28/20 14:10 VBG O2 Saturation 83 % 01/28/20 14:10 VBG Base Excess 12 mmol/L (-2-3) H 01/28/20 14:10 Sodium 137 mmol/L (136-145) 01/30/20 06:49 Potassium 3.6 mmol/L (3.5-5.1) 01/30/20 06:49 Chloride 101 mmol/L (98-107) 01/30/20 06:49 Carbon Dioxide 30.2 mmol/L (21.0-32.0) 01/30/20 06:49 Anion Gap 5.8 mmol/L (3-11) 01/30/20 06:49 BUN 9 mg/dL (7-18) D 01/30/20 06:49 Creatinine 0.45 mg/dL (0.55-1.02) L 01/30/20 06:49 Estimated GFR/1.73 m2 >= 60.00 (mL/min/1.73m2) 01/30/20 06:49 Glucose 72 mg/dL (74-106) L 01/30/20 06:49 Lactate 1.1 mmol/L (0.6-1.4) 01/28/20 14:10 Calcium 8.4 mg/dL (8.5-10.1) L 01/30/20 06:49 Total Bilirubin 0.7 mg/dL (0.2-1.0) 01/28/20 14:10 AST 25 U/L (15-37) 01/28/20 14:10 ALT 33 U/L (14-59) 01/28/20 14:10 Alkaline Phosphatase 132 U/L (46-116) H 01/28/20 14:10 Troponin I < 0.05 ng/mL (<0.06) 01/28/20 17:25 NT-Pro-B Natriuret Pep 211 pg/mL (<300) 01/28/20 14:10 Total Protein 8.2 g/dL (6.4-8.2) 01/28/20 14:10 Albumin 3.7 g/dL (3.4-5.0) 01/28/20 14:10 COVID-19 PCR Negative (Negative) 01/28/20 21:20 Nasopharyn COVID-19 PCR Not Applicable 01/28/20 21:20 Ref Test Perform Site [facility] lab 01/28/20 21:20
--- NOTE | 2020-01-30 14:03 | PHA.REVIEW ---
Pharmacy Admission Review - Admission Clinical Review (Last Reviewed 01/29/20 @ 07:33 by Kalie Matthews MD) Failure to thrive in adult (Acute) Pneumomediastinum (Acute) Bilateral pneumothoraces (Acute) Pneumonia (Acute) Chronic vomiting (Acute) Pneumomediastinum (Acute) Pneumothorax (Acute) Acute exacerbation of chronic obstructive pulmonary disease (Acute) CAP (community acquired pneumonia) (Acute) gabapentin Adverse Reaction (Severe, Verified 01/28/20 13:50) Nausea metaxalone [Metaxalone] Adverse Reaction (Severe, Verified 01/28/20 13:50) nausea diclofenac [Diclofenac] Adverse Reaction (Intermediate, Verified 01/28/20 13:50) contraindicated w/ pt's liver promethazine Adverse Reaction (Mild, Verified 01/28/20 13:50) disoriented prochlorperazine Adverse Reaction (Unknown, Verified 01/28/20 13:50) disoriented Height 4 ft 8 in Weight 31.5 kg - Renal Dosing Renal Dosing: BUN 9 mg/dL (7-18) D 01/30/20 06:49 Creatinine 0.45 mg/dL (0.55-1.02) L 01/30/20 06:49 - Anticoagulation Anticoagulation: Hgb 12.4 g/dL (11.2-15.7) 01/30/20 06:49 Hct 40.9 % (36.0-46.0) 01/30/20 06:49 Plt Count 251 10^3/uL (130-400) 01/30/20 06:49 Creatinine 0.45 mg/dL (0.55-1.02) L 01/30/20 06:49 DVT Prohphylaxis: Reviewed Medications: Aspirin - Opiate Usage Evaluate Pain Scale/Pains Meds: Reviewed (chronic methadone) Scheduled Bowel Reg ordered if on Opiates?: Yes (PRN) - Relevant Labs Sodium 137 mmol/L (136-145) 01/30/20 06:49 Potassium 3.6 mmol/L (3.5-5.1) 01/30/20 06:49 Chloride 101 mmol/L (98-107) 01/30/20 06:49 Electrolytes, C-Reactive P, ESR: Reviewed - DM Control DM Control: Glucose 72 mg/dL (74-106) L 01/30/20 06:49 Finger Stick Blood Glucose 76 Insulin Dosing: N/A - Heart Failure/WV Heart Failure/WV: Troponin I < 0.05 ng/mL (<0.06) 01/28/20 17:25 NT-Pro-B Natriuret Pep 211 pg/mL (<300) 01/28/20 14:10 EF%, MICKI's, B-Blockers, Diuretics: Reviewed - BP Control BP Control: Blood Pressure 115/74 Blood Pressure 102/64 Blood Pressure 105/66 If elevated: Reviewed - Qtc Review If Elevated: Reviewed (QTc 476 -- gets chronic methadone, has zofran PRN ordered, watch for ordering of additional QT prolonging meds) - IV to PO Switch IV Medications: Reviewed - Home Meds Home Med List reviewed: Reviewed Relevent Home Meds Not ordered & why?: maintenance inhaler, currentently getting scheduled nebs - Current meds Current Medication Order Review: Reviewed
--- NOTE | 2020-01-30 14:19 | PDOC.CMPRO ---
- If Service Date Differs Date of service: 01/30/20 Time of Service: 14:19 Care Management Progress Note S/O: Kira was sitting up in bed when CM met with her. She was unable to make eye contact with CM, but she was able to answer questions. She stated that she was doing well. CM expressed concern for her, as she has continued to lose weight, and her O2 sat had been very low (down to 5) today. She continued to state I am ok. CM discussed these concerns with the MD, who agreed that Palliative should see her, tonight if possible. CM contacted Palliative, who made recommendations to the MD regarding her care. Palliative will meet with Kira tomorrow. Kira stated that she is not in any pain, and that she is comfortable. CM will continue to follow. A: Kira is a 64 year old female admitted to [facility] on 01/30/20 for COPD, Pneumonia P: Anticipate Kira will return home with a resumption of services once medically cleared. She will need a last dose letter for BAART. She will follow up with her PCP and discharge plan of care. CM will continue to follow and support discharge planning considerations.
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
--- NOTE | 2020-01-30 17:21 | DI.VRAD_ITS ---
PROCEDURE INFORMATION: Exam: XR Chest, 1 View Exam date and time: 01/30/2020 4:52 PM Age: 64 years old Clinical indication: Other: Respiratory depression TECHNIQUE: Imaging protocol: XR of the chest Views: 1 view. COMPARISON: CR XR PORTABLE CHEST AP 01/28/2020 2:42 PM FINDINGS: Lungs: Worsening diffuse hazy opacities both lungs. Pleural space: No definite pneumothorax. Heart/Mediastinum: similar appearance of the cardiomediastinal silhouette. Bones/joints: Similar bony structures. Other findings: No sizable effusion. IMPRESSION: Worsening diffuse hazy opacities both lungs. Dictated and Authenticated by: Kiran Boss MD. Ordering:ANDREW Nguyễn MD
--- NOTE | 2020-01-30 18:39 | NUR.NOTE ---
@16:20 BACK TENDER PULP DRIER went in to take Patient FS. she was breathing 5-6 breath per minute, BP:89/61, HR 69 TEMP:36.1 SPO2 100% on 1L of 02 and unresponsive. After Charge Nurse and BACK TENDER PULP DRIER reposition pt in bed, she started speaking but was still very drowsy. MD aware. X RAY ordered and palliative care team contacted. 17:30, BP:101/62, hr 80 RR:14 spo2 96%. patient is currently drowsy and very confused. XRAY revealed Worsening diffuse hazy opacities both lungs
[2020-01-30] MEDS: cefTRIAXone 1 GM/50 ML BAG IVPB (20:46)
[2020-01-30] MEDS: Mirtazapine 15 MG TAB 30 MG PO (21:55)
[2020-01-30] MEDS: Acetaminophen 325 MG TAB 650 MG PO (23:25)
[2020-01-31] VITALS (15 sets, daily range): BP systolic 78–119; BP diastolic 50–74; PULSE 68–86; RESP 2–17; TEMP 35.9–37.5; O2SAT 93–99
[2020-01-31] MEDS: Albuterol/Ipratropium 3 ML UPD VIAL UPD ×4 (05:52→23:13)
[2020-01-31 06:29] LABS: Abs Immature Grans 0.16 10^3/uL (0.0-0.06); Absolute Basophil Count 0.02 10^3/uL (0.0-0.2); Absolute Monocyte Count 1.24 10^3/uL (0.1-0.8); Basophils % 0.1; HCT 39.2 % (36.0-46.0); HGB 11.9 g/dL (11.2-15.7); Immature Grans % 0.8; Lymphocytes % 6.9; MCH 26.2 pg (27.0-33.0); MCHC 30.4 % (32.0-36.0); MCV 86.3 fL (80-95); Neutrophils % 86.2; Nucleated RBC 0 %; Platelet Count 233 10^3/uL (130-400); RBC 4.54 10^6/uL (3.93-5.22); RDW 15.6 % (11.7-14.6); RDW-SD 49.1 fL; WBC 20.61 10^3/uL (4.4-10.8)
[2020-01-31 06:31] LABS: Absolute Lymphocyte Count 1.42 10^3/uL (1.2-3.4); Absolute Neutrophil Count 17.77 10^3/uL (1.2-6.7)
[2020-01-31 06:41] LABS: ALT 22 U/L (14-59); AST 26 U/L (15-37); Albumin 2.6 g/dL (3.4-5.0); Alkaline Phosphatase 83 U/L (46-116); Anion Gap 5.7 mmol/L (3-11); BUN 10 mg/dL (7-18); Bilirubin, Total 0.3 mg/dL (0.2-1.0); CO2 28.3 mmol/L (21.0-32.0); CREATININE 0.44 mg/dL (0.55-1.02); Calcium 8.4 mg/dL (8.5-10.1); Chloride 101 mmol/L (98-107); Glucose 81 mg/dL (74-106); Potassium 4.9 mmol/L (3.5-5.1); Sodium 135 mmol/L (136-145); Total Protein 6.1 g/dL (6.4-8.2)
[2020-01-31] MEDS: Budesonide 0.25 MG/2 ML UPD VIAL UPD ×2 (07:52→19:28)
[2020-01-31] MEDS: DOXYCYCLINE 100 MG in Normal Saline 100 ML IVPB ×2 (07:59→20:13)
[2020-01-31] MEDS: buPROPion-XL 150 MG TABCR 300 MG PO (08:00)
[2020-01-31] MEDS: Magnesium Oxide 400 MG TAB PO ×2 (08:00→19:29)
[2020-01-31] MEDS: Omeprazole 20 MG CAPCR 40 MG PO (08:00)
[2020-01-31] MEDS: dilTIAZem 60 MG TAB PO ×2 (08:01→19:29)
[2020-01-31] MEDS: Spironolactone 25 MG TAB 50 MG PO ×2 (08:01→19:29)
[2020-01-31] MEDS: Dronabinol 2.5 MG CAP 5 MG PO (08:01)
[2020-01-31] MEDS: Gabapentin 300 MG CAP PO ×2 (08:02→19:29)
[2020-01-31] MEDS: Lisinopril 10 MG TAB PO (08:02)
[2020-01-31] MEDS: Aspirin E.C. 81 MG TABEC PO (08:02)
[2020-01-31] MEDS: predniSONE 20 MG TAB PO (08:02)
[2020-01-31 08:24] LABS: Magnesium 1.8 mg/dL (1.8-2.4)
[2020-01-31 11:49] LABS: Ammonia 28 umol/L (11-32)
[2020-01-31] MEDS: Methadone Liquid 10 MG/ML 70 MG PO (12:29)
--- NOTE | 2020-01-31 13:27 | W.NUTCONSULT ---
Date of service: 01/31/20 Time of Service: 13:27 Nutritional Consult ASSESSMENT: 64 year old female admitted with adult failure to thrive, n/v with PNA. PMH: liver cirrhosis, hx of IVDA. Kira has lost 30 lbs in last 6 months, now with BMI 15.6 indicates malnourished state. Met with Kira today, she is cachexic and confused. She states her weight loss occurred because of drugs. She wants to regain her weight to typical weight of 95 lbs but reports poor appetite, stomach ache when she eats. Marinol added yesterday. She states at home she receives meals on wheels, has food stamps and is able to cook for herself. She also drinks ensure plus daily. Reviewed with her that she needs to consume 50% of meals and 1-2 ensure plus daily to meet nutrient needs for weight regain. Following regular meal plan with poor intake since admit. At high risk for further nutritional decline in view of severely malnourished state. Estimated Needs: 950-1050 kcal, 40-50 g protein, 1200 ml fluid NUTRITIONAL DIAGNOSIS: Severe malnutrition in view of chronic illness, social and environmental circumstances. INTERVENTION: Regular meal plan ensure plus BID MONITORING AND EVALUATION: weight, po intake, labs Time Spent in Nutritional Counseling and Treatment: 15 min spent face to face
--- NOTE | 2020-01-31 14:04 | W.PALLCONSUL ---
Date of service: 01/31/20 Time of Service: 14:05 History of Present Illness History of Present Illness Chief Complaint: fatigue, weakness, Pneumonia. Narrative: Kira Campbell is a 64 year old with a past medical history significant for COPD, current smoker (smokes 5 cigarettes per day), CKD, diabetes, GERD, hepatitis C (treated) with cirrhosis, history of opioid abuse, currently on methadone, hypertension, nausea and vomiting with weight loss. She is currently admitted to [facility] for treatment of pneumonia. Yesterday, she was found to be unresponsive and with a low respiratory rate (3-5 as reported by nursing). She eventually woke up and conversed with staff. There was concern that her methadone could possibly be too high in the setting of significant weight loss. She has been on the [address] Bella, hospitalist, discussed this with her methadone provider and they decided to decrease her dose to 70 mg and continue to taper it slowly over several days. Kira has been clear in the past that she did not want to be intubated, but would be OK with having CPR. The plan was to discuss this further with her to determine if she still wants CPR in the setting of failing health. However, during the time of her visit today, she was unable to engage in this discussion as she was not oriented and was hallucinating. She asked, now, where are you going? When questioned who she was talking to, she said, one of the nurses. I was the only person in the room with Kira at the time. She thought she was at [facility] and that it was Tuesday. When questioned, she denies pain or nausea. She reports that she has been eating. I expressed to her that I am very concerned about her and that she appears to be nearing the end of her life, she replied, I know that. I asked her if she was afraid of dying and she stated, no... and began talking nonsensically about other topics. 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 She has lost a significant amount of weight. She is currently being treated for PNA. She has a COLST and has indicated in the past that she would not want to be intubated, but would be OK with cardiac resuscitation. The plan for her visit was to revisit her CODE status and reconsider if she would want resuscitation, however, she is not in a position to discuss this today as she is not oriented and is experiencing hallucinations. Her methadone dose was decreased from 75 mg daily to 70 mg daily, with a plan to continue to taper it down. I told her clearly that she appears to be nearing the end of her life. She said, I know that, however, I am concerned that she may not be in the position to understand this at this time. I will follow up with Kira tomorrow to continue to discuss her CODE status. Review of Systems Unobtainable due to mental status [facility] Medical History Abnormal CT of the chest (Acute 03/18/17) stable 2mm nodule in AILYN Annual Chest CT for lung cancer screening recommended Acute renal failure (Resolved 04/29/14) a. creatinine bumped from 0.8 to 2.9 b. h/o renal failure 06/2013, presented with creatinine 5.4, which normalized with IV fluids Acute right-sided low back pain without sciatica (Acute 06/08/17) Pain rad thru buttock, but not down leg. Priformis Syndr? [ ] PT [ ] Hx Pain Clinic (Injctn #1 helped, #2 did not). Occasional relief from SOMA. Trial GABAPENTIN 06/09/18.in past Anxiety and depression (Chronic) Bilateral pneumonia (Acute 04/29/14) A. Bilateral lower lobes Biliary colic (Inactive) Cirrhosis Cirrhosis of liver (Chronic) a. History of Hep C treatment. b. Liver biopsy 2005 positive for cirrhosis. 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 AFP levels every six months and ruq US every 12 months COPD (chronic obstructive pulmonary disease) (Chronic) Ongoing tobacco use. COPD (chronic obstructive pulmonary disease) (Chronic) Diabetes (Chronic) On Metformin. Diabetes mellitus DNI (do not intubate) (Acute) Essential hypertension (Chronic) Well maintained, meds tolerated. Hepatitis C HTN (hypertension) Hypertension (Chronic) Methadone dependence (Chronic) Nausea & vomiting (Acute) Neuropathy of right radial nerve (Chronic) a. recently had multiple falls and a hematoma around her humerus b. resolving Pleuritic chest pain (Acute 04/29/14) a. left sided POLST (Physician Orders for Life-Sustaining Treatment) (Acute) Polysubstance abuse (Chronic) a. h/o opiate overdose 06/2013 and 11/2013 b. recently started in [facility] program 03/13/2014 on oral methadone (missed her dose today) Shortness of breath (Acute) Spinal stenosis (Chronic) a. MRI 10/2009, showed L4-5 narrowing Tobacco abuse (Chronic) Tobacco use disorder Varices of esophagus determined by endoscopy (Acute) Surgical History Appendectomy (01/30/07) H/O: hysterectomy (Chronic) History of ankle surgery (Acute) left S/P bilateral breast lumpectomy (Acute) Family History Mother Myocardial infarction Stroke Sister Diabetes Myocardial infarction Sister Diabetes Father Diabetes Alcohol abuse Myocardial infarction Social History Smoking/Tobacco Use Status: Current every day Tobacco Type: cigarettes Smoking packs per day: 1 Smoking cigarettes per day: 20.0 Years smoked: 40 Smoking pack-years: 40.00 Quit status: considering quitting Counseling given: other Details: pt feels motivated and states she doesnt enjoy them now Alcohol Intake: never Drug use: Current Sobriety Substance use type: heroin Details: on 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 water taxi driver: No Working smoke detector in home: Yes Fire extinguisher in home: Yes Carbon monox detector in home: Yes Do you feel safe at home: Yes Do you feel safe in your relationship?: Yes Exam Narrative Exam Narrative: General: very thin, frail, cachectic appearing female, bones prominent, appears older than stated age. Laying in bed with HOB elevated, moaning while asleep, jumping occasionally. Drowsy, not oriented. HEENT: Normocephalic, atraumatic, pupils equal round, EOMI, mucous membranes moist. Cardiovascular: Heart has regular rate and rhythm, no murmur appreciated, non-tachycardic. Respiratory: Respirations appear even and unlabored, lung sounds with diminished air flow, rales bilaterally, no wheezing. No cough during exam. GI: Thin, scaphoid abdomen. Normal active bowel sounds, abdomen is soft, nondistended, nontender on palpation. Extremities: Muscle atrophy noted of all 4 extremities, thin, moves extremities freely. No edema noted. Results Last Vital Signs Temp 37.5 C 01/31/20 11:41 Pulse 86 01/31/20 11:51 Resp 14 01/31/20 11:51 BP 119/72 01/31/20 11:41 Pulse Ox 99 01/31/20 11:51 Labs Result diagrams: 01/31/20 06:12 01/31/20 06:12 Labs: Laboratory Results - last 24 hr 01/31/20 01/31/20 01/31/20 06:12 06:12 06:12 WBC 20.61 H RBC 4.54 Hgb 11.9 Hct 39.2 MCV 86.3 MCH 26.2 L MCHC 30.4 L RDW 15.6 H Plt Count 233 MPV 10.0 Immature Gran % 0.8 Neutrophils % 86.2 Lymphocytes % 6.9 Monocytes % 6.0 Eosinophils % 0.0 Basophils % 0.1 Nucleated RBC % 0 Absolute Neutrophils 17.77 H Absolute Lymphocytes 1.42 Absolute Monocytes 1.24 H Absolute Eosinophils 0.00 Absolute Basophils 0.02 Sodium 135 L Potassium 4.9 D Chloride 101 Carbon Dioxide 28.3 Anion Gap 5.7 BUN 10 Creatinine 0.44 L Estimated GFR/1.73 m2 >= 60.00 Glucose 81 Calcium 8.4 L Magnesium 1.8 Total Bilirubin 0.3 AST 26 ALT 22 Alkaline Phosphatase 83 Ammonia Total Protein 6.1 L Albumin 2.6 L 01/31/20 11:31 WBC RBC Hgb Hct MCV MCH MCHC RDW Plt Count MPV Immature Gran % Neutrophils % Lymphocytes % Monocytes % Eosinophils % Basophils % Nucleated RBC % Absolute Neutrophils Absolute Lymphocytes Absolute Monocytes Absolute Eosinophils Absolute Basophils Sodium Potassium Chloride Carbon Dioxide Anion Gap BUN Creatinine Estimated GFR/1.73 m2 Glucose Calcium Magnesium Total Bilirubin AST ALT Alkaline Phosphatase Ammonia 28 Total Protein Albumin
--- NOTE | 2020-01-31 15:49 | CMPROGNOTE_ITS ---
Care Management Progress Note S/O: Kira was sitting up in bed. She smiled and greeted this contract technical writer kindly. She reported trying to eat, but was falling asleep on and off as well. Loli from Palliative Care was going in to see Kira as well. There is concern about Kira's presentation and worry for her ongoing decline. CM continues to follow. A: Kira is a 64 year old female admitted to [facility] on 01/30/20 for COPD, Pneumonia P: Anticipate Kira may return home with a resumption of services once medically cleared, though she continues to be weak at this time. She will need a last dose letter for BAART. She will follow up with her PCP and discharge plan of care. CM will continue to follow and support discharge planning considerations.
[2020-01-31] MEDS: Naloxone 0.4 MG/ML VIAL 0.2 MG SC (16:01)
--- NOTE | 2020-01-31 16:04 | NUR.NOTE ---
@12:05 MD was consulted that this RN was concerned regarding patient methadone dose of 75mg, due to that the fact that she became unresponsive verbally and respiratory rate of 5-8, 4 hours after administration of methadone yesterday 01/30/20. DEANNA was contacted- it was stated that her dose was already adjusted due to her weight loss and they were concerned that rapidly decreasing the dose could make patient detox. dosage was decrease this afternoon 01/31/20 by to 70 mg.
--- NOTE | 2020-01-31 16:30 | NUR.NOTE ---
15:40 patient was not responding to name, when NUT FORMER was obtaining vital signs however eyes open spontaneously to touch. VS: T:36.7, hr 68 BP manual was 78/50, SPO2 98% on 1L and RR:5. MD made aware by Charge Nurse, STAT dose of 0.2mg narcan was ordered, dose was given by this RN at 16:01. patient currently open eyes spontaneously to name but not verbally responsive. This RN will continue to monitor progress
--- NOTE | 2020-01-31 18:22 | NUR.NOTE ---
Addendum entered by Rashaun Brooks 02/04/20 07:34: 17:30 instead of 17.3 Original Note: 17:3 patient is alert and awake, attempting to eat supper. she is verbally responsive but still confused. BP 102/60/ HR: 78 spo2 98 on 1L of o2, RR:12 and Temp:37.1
[2020-01-31] MEDS: Lactated Ringers 1,000 ML 80 ML IV (19:18)
[2020-01-31] MEDS: cefTRIAXone 1 GM/50 ML BAG IVPB (19:35)
[2020-01-31] MEDS: Mirtazapine 15 MG TAB 30 MG PO (21:51)
[2020-01-31] MEDS: Naloxone 0.4 MG/ML VIAL 0.2 MG IVP (23:49)
[2020-02-01] VITALS (13 sets, daily range): BP systolic 102–143; BP diastolic 58–92; PULSE 69–103; RESP 8–20; TEMP 37–38.5; O2SAT 86–99
--- NOTE | 2020-02-01 | DI.RAD_ITS ---
EXAM: XR PORTABLE CHEST AP CLINICAL HISTORY: pneumonia. New fever. TECHNIQUE: 2D digital imaging was performed. COMPARISON: CR XR PORTABLE CHEST AP from 01/28/2020 CR,XR XR PORTABLE CHEST AP from 01/30/2020 FINDINGS: Heart size remains normal. The lungs again cysts show reduced volume and severe fibrotic changes. I ncreased patchy densities are again seen at the right lung base, not significantly changed. No pneum othorax is visible. Contrast is noted in the colon from previous esophagram. No free air is seen be neath the diaphragm. IMPRESSION: Stable fibrotic changes and right lower lobe infiltrate.. DATA REPOSITORY: RADIATION DOSE DELIVERED:
--- NOTE | 2020-02-01 01:40 | NUR.NOTE ---
Nursing Note: at 2330 pt noted to have respirations at 7 with labored breathing and not arousable. All other vitals stable. Sched neb provided with no effect. paged for narcan order. Pt was administered with effect. Pt immed awake and restless. At this time pt is sleeping, respirations remain labored. Will reassess respirations 2 hours post narcan admin.
[2020-02-01] MEDS: Albuterol/Ipratropium 3 ML UPD VIAL UPD ×3 (06:17→23:36)
--- NOTE | 2020-02-01 07:24 | W.PM.PROGNOT ---
Date of Service Date of service: 01/31/20 Time of Service: 16:30 Assessment and Plan Assessment and plan (1) Failure to thrive in adult: Status: Acute Assessment and plan: attempted marinol but stopped d/t confusional state; may or may not be a contributing factor. Her appetite has improved. (2) Altered mental state: Status: Acute Assessment and plan: Ammonia normal. Marionol. Methadone? Weaning dose of methadone; split dose 30mg BID (3) Pneumonia: Status: Acute Assessment and plan: Cont Ceftriaxone and doxycycline (4) Pneumomediastinum: Status: Acute Assessment and plan: No pain complaints. (5) Palliative care patient: Status: Acute Assessment and plan: Palliative is following. She is a DNI but not DNR. She has been too confused to discuss her code status further. Subjective Subjective Interval history since last seen: Pt confused and lethargic RR drops intermittently into the single digitis. O2 saturations maintained She arouses to stimuli Has eaten meals Exam Const General: no acute distress and lethargic Nutritional Appearance: cachectic Orientation: confused Limitations: altered mental status Eyes Sclera: sclerae normal Resp Effort & Inspection: decreased respiratory effort Auscultation: diminished lung sounds GI Palpation: soft Percussion: normal to percussion Auscultation: normal bowel sounds Extrem General: no clubbing, cyanosis or edema Psych Appearance: grossly normal Attitude: cooperative Thought Content: hallucinations and other (confused. ) Insight: poor Objective Objective Clinical Data: Vital Signs Temperature 37.4 C 02/01/20 03:30 Temperature Source Tympanic 02/01/20 03:30 Pulse 80 02/01/20 03:30 Pulse Rhythm Regular 01/31/20 22:22 Pulse 100 H 01/28/20 21:01 Respiratory Rate 12 02/01/20 03:30 Respiratory Effort 02/01/20 05:00 Respiratory Depth Deep 02/01/20 05:00 Respiratory Pattern Bradypnea 02/01/20 05:00 Blood Pressure 143/92 H 02/01/20 03:30 Blood Pressure Mean 81 01/28/20 21:00 Blood Pressure Position Supine 01/28/20 13:43 Pulse Oximetry 99 02/01/20 03:30 Oxygen Delivery Method Nasal Cannula 02/01/20 03:30 Oxygen Flow Rate 1 02/01/20 03:30 Pain Level 10 01/31/20 12:29 Comment 02/01/20 03:30 Intake & Output 01/31/20 01/31/20 02/01/20 11:59 23:59 11:59 Intake Total 2099 Output Total 1000 / 1000 1900 / 1900 Balance 2099 -999 / 1099 -190 / -1900 Intake: IV 2099 Output: Urine 1000 / 1000 1900 / 1900 Other: Urine Color Yellow Yellow Urine Appearance Clear Clear Clear Comment BS was obtained after voided 500 in commode urine mixed with stool unable to measure output Stool Size Moderate Large Stool Characteristics Liquid Hard Brown Voiding Methods Bedside Commode Laboratory Results WBC 20.61 10^3/uL (4.4-10.8) H 01/31/20 06:12 RBC 4.54 10^6/uL (3.93-5.22) 01/31/20 06:12 Hgb 11.9 g/dL (11.2-15.7) 01/31/20 06:12 Hct 39.2 % (36.0-46.0) 01/31/20 06:12 MCV 86.3 fL (80-95) 01/31/20 06:12 MCH 26.2 pg (27.0-33.0) L 01/31/20 06:12 MCHC 30.4 % (32.0-36.0) L 01/31/20 06:12 RDW 15.6 % (11.7-14.6) H 01/31/20 06:12 Plt Count 233 10^3/uL (130-400) 01/31/20 06:12 MPV 10.0 fL (8.0-11.0) 01/31/20 06:12 Immature Gran % 0.8 01/31/20 06:12 Neutrophils % 86.2 01/31/20 06:12 Lymphocytes % 6.9 01/31/20 06:12 Monocytes % 6.0 01/31/20 06:12 Eosinophils % 0.0 01/31/20 06:12 Basophils % 0.1 01/31/20 06:12 Nucleated RBC % 0 % 01/31/20 06:12 Absolute Neutrophils 17.77 10^3/uL (1.2-6.7) H 01/31/20 06:12 Absolute Lymphocytes 1.42 10^3/uL (1.2-3.4) 01/31/20 06:12 Absolute Monocytes 1.24 10^3/uL (0.1-0.8) H 01/31/20 06:12 Absolute Eosinophils 0.00 10^3/uL (0.0-0.7) 01/31/20 06:12 Absolute Basophils 0.02 10^3/uL (0.0-0.2) 01/31/20 06:12 VBG pH 7.48 (7.31-7.41) H 01/28/20 14:10 VBG pCO2 48 mmHg (41-51) 01/28/20 14:10 VBG pO2 44 mmHg 01/28/20 14:10 VBG HCO3 36 mmol/L (23-28) H 01/28/20 14:10 VBG Total CO2 31 mmol/L (24-29) H 01/28/20 14:10 VBG O2 Saturation 83 % 01/28/20 14:10 VBG Base Excess 12 mmol/L (-2-3) H 01/28/20 14:10 Sodium 135 mmol/L (136-145) L 01/31/20 06:12 Potassium 4.9 mmol/L (3.5-5.1) D 01/31/20 06:12 Chloride 101 mmol/L (98-107) 01/31/20 06:12 Carbon Dioxide 28.3 mmol/L (21.0-32.0) 01/31/20 06:12 Anion Gap 5.7 mmol/L (3-11) 01/31/20 06:12 BUN 10 mg/dL (7-18) 01/31/20 06:12 Creatinine 0.44 mg/dL (0.55-1.02) L 01/31/20 06:12 Estimated GFR/1.73 m2 >= 60.00 (mL/min/1.73m2) 01/31/20 06:12 Glucose 81 mg/dL (74-106) 01/31/20 06:12 Lactate 1.1 mmol/L (0.6-1.4) 01/28/20 14:10 Calcium 8.4 mg/dL (8.5-10.1) L 01/31/20 06:12 Magnesium 1.8 mg/dL (1.8-2.4) 01/31/20 06:12 Total Bilirubin 0.3 mg/dL (0.2-1.0) 01/31/20 06:12 AST 26 U/L (15-37) 01/31/20 06:12 ALT 22 U/L (14-59) 01/31/20 06:12 Alkaline Phosphatase 83 U/L (46-116) 01/31/20 06:12 Ammonia 28 umol/L (11-32) 01/31/20 11:31 Troponin I < 0.05 ng/mL (<0.06) 01/28/20 17:25 NT-Pro-B Natriuret Pep 211 pg/mL (<300) 01/28/20 14:10 Total Protein 6.1 g/dL (6.4-8.2) L 01/31/20 06:12 Albumin 2.6 g/dL (3.4-5.0) L 01/31/20 06:12 COVID-19 PCR Negative (Negative) 01/28/20 21:20 Nasopharyn COVID-19 PCR Not Applicable 01/28/20 21:20 Ref Test Perform Site [facility] lab 01/28/20 21:20
[2020-02-01] MEDS: predniSONE 20 MG TAB PO (08:18)
[2020-02-01] MEDS: buPROPion-XL 150 MG TABCR 300 MG PO (08:18)
[2020-02-01] MEDS: dilTIAZem 60 MG TAB PO ×2 (08:18→13:46)
[2020-02-01] MEDS: Aspirin E.C. 81 MG TABEC PO (08:19)
[2020-02-01] MEDS: Magnesium Oxide 400 MG TAB PO (08:19)
[2020-02-01] MEDS: Gabapentin 300 MG CAP PO ×2 (08:19→13:46)
[2020-02-01] MEDS: Spironolactone 25 MG TAB 50 MG PO (08:19)
[2020-02-01] MEDS: Omeprazole 20 MG CAPCR 40 MG PO (08:19)
[2020-02-01] MEDS: Acetaminophen 325 MG TAB 650 MG PO (08:19)
[2020-02-01] MEDS: Lisinopril 10 MG TAB PO (08:19)
[2020-02-01] MEDS: DOXYCYCLINE 100 MG in Normal Saline 100 ML IVPB (08:25)
[2020-02-01 08:57] LABS: Abs Immature Grans 0.13 10^3/uL (0.0-0.06); Absolute Basophil Count 0.02 10^3/uL (0.0-0.2); Absolute Eosinophil Count 0.04 10^3/uL (0.0-0.7); Absolute Lymphocyte Count 1.78 10^3/uL (1.2-3.4); Absolute Monocyte Count 1.38 10^3/uL (0.1-0.8); Absolute Neutrophil Count 17.59 10^3/uL (1.2-6.7); Basophils % 0.1; Eosinophils % 0.2; HCT 39.2 % (36.0-46.0); HGB 12.2 g/dL (11.2-15.7); Immature Grans % 0.6; Lymphocytes % 8.5; MCH 26.5 pg (27.0-33.0); MCHC 31.1 % (32.0-36.0); MCV 85.2 fL (80-95); MPV 10.2 fL (8.0-11.0); Monocytes % 6.6; Nucleated RBC 0 %; Platelet Count 209 10^3/uL (130-400); RDW 15.5 % (11.7-14.6); WBC 20.94 10^3/uL (4.4-10.8)
[2020-02-01] MEDS: Scopolamine 1 MG/3 DAYS PATCH TD (09:01)
[2020-02-01] MEDS: CEFEPIME 1 GM in Normal Saline 50 ML IVPB ×3 (09:01→23:37)
--- NOTE | 2020-02-01 09:45 | W.PALPGNOTE ---
Date of service: 02/01/20 Time of Service: 09:45 Assessment and Plan Assessment and plan (1) Failure to thrive in adult: Status: Acute (2) Pneumomediastinum: Status: Acute (3) Bilateral pneumothoraces: Status: Acute (4) Pneumonia: Status: Acute (5) Chronic vomiting: Status: Acute (6) Acute exacerbation of chronic obstructive pulmonary disease: Status: Acute (7) Nausea & vomiting: Status: Acute (8) DNI (do not intubate): Status: Acute (9) Chronic kidney disease, stage IV (severe): Status: Acute (10) Opioid dependence on agonist therapy: Status: Chronic (11) Spinal stenosis: Status: Chronic (12) Tobacco abuse: Status: Chronic (13) 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 She was drowsy and disoriented yesterday, she was unable to discuss code status. Her methadone dose has been decreased further today and split. She received narcan yesterday. She is alert and oriented today, she is able to discuss code status. We completed a new COLST form. She is clear that she is a DNR/DNI. She is currently being treated for PNA. Likely with a component of aspiration due to her decreased mental status. Her goal is to get strong enough to go home, she does not want to go to a rehab. Palliative will continue to follow her in the hospital, she will need to be set up for a home visit after discharge. Subjective Subjective Interval history since last seen: Kira is sitting up in the chair in her room, she is able to engage in conversation, she recognized me and called me by name when i entered the room. Kira is feeling SOB today, both at rest and up walking. She reports having a good appetite, she is eating breakfast and has consumed about 30%. She is febrile today, likely due to aspiration event when she was disoriented and drowsy. Her methadone dose has been decreased further and split today. She reports pain across her upper abdomen that goes around into her back. She denies nausea or vomiting. She denies CP/pressure, no recent palpitations. She was awake a lot last night. She has lost over 50 pounds in the last year. Her goal is to be strong enough to go home. She would not go to a rehab. After a kinjal discussion, stating that she appears to be nearing the end of her life, she states, i think my body is breaking down. I asked her if she thinks she is nearing the end of her life and she stated, no. She states that if she looked to be near the end of her life and could not speak for herself, she wants comfort measures only. Exam Narrative Exam Narrative: General: very thin, frail, cachectic appearing female, bones prominent, appears older than stated age. Severe kyphosis. She is alert and oriented today, sitting up in the recliner, appropriately engaging in conversation. Appears to be at mental baseline. HEENT: Normocephalic, atraumatic, pupils equal round, EOMI, mucous membranes moist. Chest: all ribs visible. Cardiovascular: Heart has regular rate and rhythm, 2/6 murmur noted at LSB, non-tachycardic. Respiratory: Respirations appear even and unlabored, lung sounds with diminished air flow, rales bilaterally, no wheezing. No cough during exam. GI: Thin, scaphoid abdomen. Normal active bowel sounds, abdomen is soft, nondistended, nontender on palpation. Extremities: Muscle atrophy noted of all 4 extremities, thin, moves extremities freely. No edema noted. Objective Objective Clinical Data: Abnormal lab results 02/01/20 Range/Units 08:40 WBC 20.94 H (4.4-10.8) 10^3/uL MCH 26.5 L (27.0-33.0) pg MCHC 31.1 L (32.0-36.0) % RDW 15.5 H (11.7-14.6) % Absolute Neutrophils 17.59 H (1.2-6.7) 10^3/uL Absolute Monocytes 1.38 H (0.1-0.8) 10^3/uL Vital Signs Temperature 38.5 C H 02/01/20 08:19 Temperature Source Tympanic 02/01/20 07:27 Pulse 98 H 02/01/20 07:27 Pulse Rhythm Regular 01/31/20 22:22 Pulse 100 H 01/28/20 21:01 Respiratory Rate 9 L 02/01/20 07:27 Respiratory Effort 02/01/20 05:00 Respiratory Depth Deep 08/21/20 05:00 Respiratory Pattern Bradypnea 02/01/20 05:00 Blood Pressure 136/83 02/01/20 07:27 Blood Pressure Mean 81 01/28/20 21:00 Blood Pressure Position Supine 01/28/20 13:43 Pulse Oximetry 91 L 02/01/20 07:27 Oxygen Delivery Method Nasal Cannula 02/01/20 07:27 Oxygen Flow Rate 1.5 02/01/20 07:27 Pain Level 0 02/01/20 07:27 Comment 02/01/20 03:30 Intake & Output 01/31/20 01/31/20 02/01/20 11:59 23:59 11:59 Intake Total 2100 / 2200 100 / 2200 23.333 / 23.333 Output Total 1000 / 1000 1900 / 1900 Balance 2100 / 1200 -900 / 1200 -1876.667 / -1876.667 Intake: IV 2100 / 2200 100 / 2200 23.333 / 23.333 Output: Urine 1000 / 1000 1900 / 1900 Other: Urine Color Yellow Yellow Urine Appearance Clear Clear Clear Comment BS was obtained after voided 500 in commode urine mixed with stool unable to measure output Stool Size Moderate Large Stool Characteristics Liquid Hard Brown Voiding Methods Bedside Commode Laboratory Results WBC 20.94 10^3/uL (4.4-10.8) H 02/01/20 08:40 RBC 4.60 10^6/uL (3.93-5.22) 02/01/20 08:40 Hgb 12.2 g/dL (11.2-15.7) 02/01/20 08:40 Hct 39.2 % (36.0-46.0) 02/01/20 08:40 MCV 85.2 fL (80-95) 02/01/20 08:40 MCH 26.5 pg (27.0-33.0) L 02/01/20 08:40 MCHC 31.1 % (32.0-36.0) L 02/01/20 08:40 RDW 15.5 % (11.7-14.6) H 02/01/20 08:40 Plt Count 209 10^3/uL (130-400) 02/01/20 08:40 MPV 10.2 fL (8.0-11.0) 02/01/20 08:40 Immature Gran % 0.6 02/01/20 08:40 Neutrophils % 84.0 02/01/20 08:40 Lymphocytes % 8.5 02/01/20 08:40 Monocytes % 6.6 02/01/20 08:40 Eosinophils % 0.2 02/01/20 08:40 Basophils % 0.1 02/01/20 08:40 Nucleated RBC % 0 % 02/01/20 08:40 Absolute Neutrophils 17.59 10^3/uL (1.2-6.7) H 02/01/20 08:40 Absolute Lymphocytes 1.78 10^3/uL (1.2-3.4) 02/01/20 08:40 Absolute Monocytes 1.38 10^3/uL (0.1-0.8) H 02/01/20 08:40 Absolute Eosinophils 0.04 10^3/uL (0.0-0.7) 02/01/20 08:40 Absolute Basophils 0.02 10^3/uL (0.0-0.2) 02/01/20 08:40 VBG pH 7.48 (7.31-7.41) H 01/28/20 14:10 VBG pCO2 48 mmHg (41-51) 01/28/20 14:10 VBG pO2 44 mmHg 01/28/20 14:10 VBG HCO3 36 mmol/L (23-28) H 01/28/20 14:10 VBG Total CO2 31 mmol/L (24-29) H 01/28/20 14:10 VBG O2 Saturation 83 % 01/28/20 14:10 VBG Base Excess 12 mmol/L (-2-3) H 01/28/20 14:10 Sodium 135 mmol/L (136-145) L 01/31/20 06:12 Potassium 4.9 mmol/L (3.5-5.1) D 01/31/20 06:12 Chloride 101 mmol/L (98-107) 01/31/20 06:12 Carbon Dioxide 28.3 mmol/L (21.0-32.0) 01/31/20 06:12 Anion Gap 5.7 mmol/L (3-11) 01/31/20 06:12 BUN 10 mg/dL (7-18) 01/31/20 06:12 Creatinine 0.44 mg/dL (0.55-1.02) L 01/31/20 06:12 Estimated GFR/1.73 m2 >= 60.00 (mL/min/1.73m2) 01/31/20 06:12 Glucose 81 mg/dL (74-106) 01/31/20 06:12 Lactate 1.1 mmol/L (0.6-1.4) 01/28/20 14:10 Calcium 8.4 mg/dL (8.5-10.1) L 01/31/20 06:12 Magnesium 1.8 mg/dL (1.8-2.4) 01/31/20 06:12 Total Bilirubin 0.3 mg/dL (0.2-1.0) 01/31/20 06:12 AST 26 U/L (15-37) 01/31/20 06:12 ALT 22 U/L (14-59) 01/31/20 06:12 Alkaline Phosphatase 83 U/L (46-116) 01/31/20 06:12 Ammonia 28 umol/L (11-32) 01/31/20 11:31 Troponin I < 0.05 ng/mL (<0.06) 01/28/20 17:25 NT-Pro-B Natriuret Pep 211 pg/mL (<300) 01/28/20 14:10 Total Protein 6.1 g/dL (6.4-8.2) L 01/31/20 06:12 Albumin 2.6 g/dL (3.4-5.0) L 01/31/20 06:12 COVID-19 PCR Negative (Negative) 01/28/20 21:20 Nasopharyn COVID-19 PCR Not Applicable 01/28/20 21:20 Ref Test Perform Site [facility] lab 01/28/20 21:20
--- NOTE | 2020-02-01 10:09 | PGE_ITS ---
Date of Service Date of service: 02/01/20 Time of Service: 10:09 Assessment and Plan Assessment and plan (1) Altered mental state: Status: Acute Assessment and plan: Now resolved. Etiology likely methadone dose / excessive given her significant wt loss and/or marinol. Methadone 30mg BID; watch for adverse effects of decreased dose / split dosing. (2) Failure to thrive in adult: Status: Acute Assessment and plan: Appetite is good. Encourage intake (3) Pneumonia: Status: Acute Assessment and plan: Fever today. Aspiration? CXR pending. Blood cultures ordered. WBC count remains elevated. Change antiobitic coverage to Cefepime and Vancomycin. (4) Palliative care patient: Status: Acute Assessment and plan: Appreciate palliative care input She is now a DNR/DNI. Subjective Subjective Interval history since last seen: Alert. No confusion currently. Eating breakfast No c/o pain, cough/SOA Temp of 38.5 this AM. Exam Const General: cooperative and no acute distress Nutritional Appearance: underweight Orientation: alert and oriented to place Chest Chest: normal inspection of the chest and other (No tenderness) Resp Effort & Inspection: normal respiratory effort Auscultation: clear to auscultation bilaterally and diminished lung sounds Cardio Rate: regular rate Rhythm: regular rhythm Heart Sounds: S1 normal and S2 normal Extrem General: normal to inspection and no clubbing, cyanosis or edema Psych Appearance: grossly normal Mental Status: mental status grossly normal Speech and Movement: speech and movement normal Mood: congruent mood Affect: normal affect Attitude: cooperative Objective Objective Clinical Data: Abnormal lab results 02/01/20 Range/Units 08:40 WBC 20.94 H (4.4-10.8) 10^3/uL MCH 26.5 L (27.0-33.0) pg MCHC 31.1 L (32.0-36.0) % RDW 15.5 H (11.7-14.6) % Absolute Neutrophils 17.59 H (1.2-6.7) 10^3/uL Absolute Monocytes 1.38 H (0.1-0.8) 10^3/uL Vital Signs Temperature 38.5 C H 02/01/20 08:19 Temperature Source Tympanic 02/01/20 07:27 Pulse 98 H 02/01/20 07:27 Pulse Rhythm Regular 01/31/20 22:22 Pulse 100 H 01/28/20 21:01 Respiratory Rate 9 L 02/01/20 07:27 Respiratory Effort 02/01/20 05:00 Respiratory Depth Deep 02/01/20 05:00 Respiratory Pattern Bradypnea 02/01/20 05:00 Blood Pressure 136/83 02/01/20 07:27 Blood Pressure Mean 81 01/28/20 21:00 Blood Pressure Position Supine 01/28/20 13:43 Pulse Oximetry 91 L 02/01/20 07:27 Oxygen Delivery Method Nasal Cannula 02/01/20 07:27 Oxygen Flow Rate 1.5 02/01/20 07:27 Pain Level 0 02/01/20 07:27 Comment 02/01/20 03:30 Intake & Output 01/31/20 01/31/20 02/01/20 11:59 23:59 11:59 Intake Total 2100 / 2200 100 / 2200 23.333 / 23.333 Output Total 1000 / 1000 1900 / 1900 Balance 2100 / 1200 -900 / 1200 -1876.667 / -1876.667 Intake: IV 2100 / 2200 100 / 2200 23.333 / 23.333 Output: Urine 1000 / 1000 1900 / 1900 Other: Urine Color Yellow Yellow Urine Appearance Clear Clear Clear Comment BS was obtained after voided 500 in commode urine mixed with stool unable to measure output Stool Size Moderate Large Stool Characteristics Liquid Hard Brown Voiding Methods Bedside Commode Laboratory Results WBC 20.94 10^3/uL (4.4-10.8) H 02/01/20 08:40 RBC 4.60 10^6/uL (3.93-5.22) 02/01/20 08:40 Hgb 12.2 g/dL (11.2-15.7) 02/01/20 08:40 Hct 39.2 % (36.0-46.0) 02/01/20 08:40 MCV 85.2 fL (80-95) 02/01/20 08:40 MCH 26.5 pg (27.0-33.0) L 02/01/20 08:40 MCHC 31.1 % (32.0-36.0) L 02/01/20 08:40 RDW 15.5 % (11.7-14.6) H 02/01/20 08:40 Plt Count 209 10^3/uL (130-400) 02/01/20 08:40 MPV 10.2 fL (8.0-11.0) 02/01/20 08:40 Immature Gran % 0.6 02/01/20 08:40 Neutrophils % 84.0 02/01/20 08:40 Lymphocytes % 8.5 02/01/20 08:40 Monocytes % 6.6 02/01/20 08:40 Eosinophils % 0.2 02/01/20 08:40 Basophils % 0.1 02/01/20 08:40 Nucleated RBC % 0 % 02/01/20 08:40 Absolute Neutrophils 17.59 10^3/uL (1.2-6.7) H 02/01/20 08:40 Absolute Lymphocytes 1.78 10^3/uL (1.2-3.4) 02/01/20 08:40 Absolute Monocytes 1.38 10^3/uL (0.1-0.8) H 02/01/20 08:40 Absolute Eosinophils 0.04 10^3/uL (0.0-0.7) 02/01/20 08:40 Absolute Basophils 0.02 10^3/uL (0.0-0.2) 02/01/20 08:40 VBG pH 7.48 (7.31-7.41) H 01/28/20 14:10 VBG pCO2 48 mmHg (41-51) 01/28/20 14:10 VBG pO2 44 mmHg 01/28/20 14:10 VBG HCO3 36 mmol/L (23-28) H 01/28/20 14:10 VBG Total CO2 31 mmol/L (24-29) H 01/28/20 14:10 VBG O2 Saturation 83 % 01/28/20 14:10 VBG Base Excess 12 mmol/L (-2-3) H 01/28/20 14:10 Sodium 135 mmol/L (136-145) L 01/31/20 06:12 Potassium 4.9 mmol/L (3.5-5.1) D 01/31/20 06:12 Chloride 101 mmol/L (98-107) 01/31/20 06:12 Carbon Dioxide 28.3 mmol/L (21.0-32.0) 01/31/20 06:12 Anion Gap 5.7 mmol/L (3-11) 01/31/20 06:12 BUN 10 mg/dL (7-18) 01/31/20 06:12 Creatinine 0.44 mg/dL (0.55-1.02) L 01/31/20 06:12 Estimated GFR/1.73 m2 >= 60.00 (mL/min/1.73m2) 01/31/20 06:12 Glucose 81 mg/dL (74-106) 01/31/20 06:12 Lactate 1.1 mmol/L (0.6-1.4) 01/28/20 14:10 Calcium 8.4 mg/dL (8.5-10.1) L 01/31/20 06:12 Magnesium 1.8 mg/dL (1.8-2.4) 01/31/20 06:12 Total Bilirubin 0.3 mg/dL (0.2-1.0) 01/31/20 06:12 AST 26 U/L (15-37) 01/31/20 06:12 ALT 22 U/L (14-59) 01/31/20 06:12 Alkaline Phosphatase 83 U/L (46-116) 01/31/20 06:12 Ammonia 28 umol/L (11-32) 01/31/20 11:31 Troponin I < 0.05 ng/mL (<0.06) 01/28/20 17:25 NT-Pro-B Natriuret Pep 211 pg/mL (<300) 01/28/20 14:10 Total Protein 6.1 g/dL (6.4-8.2) L 01/31/20 06:12 Albumin 2.6 g/dL (3.4-5.0) L 01/31/20 06:12 COVID-19 PCR Negative (Negative) 01/28/20 21:20 Nasopharyn COVID-19 PCR Not Applicable 01/28/20 21:20 Ref Test Perform Site [place] [facility] lab 01/28/20 21:20
[2020-02-01] MEDS: Senna TAB 1 TAB PO (10:18)
[2020-02-01] MEDS: Polyethylene Glycol 3350 17 GM PACKET PO (10:18)
[2020-02-01 11:10] LABS: Anion Gap 2.2 mmol/L (3-11); BUN 9 mg/dL (7-18); CO2 34.8 mmol/L (21.0-32.0); CREATININE 0.35 mg/dL (0.55-1.02); Calcium 8.2 mg/dL (8.5-10.1); Chloride 98 mmol/L (98-107); Glucose 83 mg/dL (74-106); Potassium 3.9 mmol/L (3.5-5.1); Sodium 135 mmol/L (136-145)
[2020-02-01] MEDS: Lactated Ringers 1,000 ML 80 ML IV (11:41)
[2020-02-01] MEDS: Budesonide 0.25 MG/2 ML UPD VIAL UPD ×2 (11:45→19:40)
[2020-02-01] MEDS: VANCOMYCIN 500 MG in Normal Saline 100 ML 100 MG IVPB ×2 (12:15→21:14)
[2020-02-01] MEDS: Methadone Liquid 10 MG/ML 30 MG PO (12:24)
[2020-02-01] MEDS: Ibuprofen 400 MG TAB PO (15:16)
--- NOTE | 2020-02-01 16:12 | CMPROGNOTE_ITS ---
- If Service Date Differs Date of service: 02/01/20 Time of Service: 16:13 Care Management Progress Note S/O: Kira was sitting up in her chair when CM met with her. She had just spilled some Ensure on her lap, so CM called for help to have her cleaned up. She stated that she had been very scared the past couple of days when she was 'not herself'. She met with Palliative care today and filled out a new COLST form, stating that she is now a DNR/DNI. CM will continue to follow. A: Kira is a 64 year old female admitted to [facility] on 01/30/20 for COPD, Pneumonia P: Anticipate Kira may return home with a resumption of services once medically cleared, though she continues to be weak at this time. She will need a last dose letter for DEANNA. She will follow up with her PCP and discharge plan of care. CM will continue to follow and support discharge planning considerations.
[2020-02-01] MEDS: Naloxone 0.4 MG/ML VIAL 0.2 MG SC (17:47)
[2020-02-01] MEDS: Normal Saline Flush 10 ML SYR IVP (17:48)
[2020-02-02] VITALS (9 sets, daily range): BP systolic 109–142; BP diastolic 67–82; PULSE 75–85; RESP 7–18; TEMP 36.5–37.5; O2SAT 92–99
[2020-02-02] MEDS: Albuterol/Ipratropium 3 ML UPD VIAL UPD ×3 (06:26→17:33)
[2020-02-02] MEDS: Omeprazole 20 MG CAPCR 40 MG PO (06:26)
[2020-02-02 07:35] LABS: Abs Immature Grans 0.07 10^3/uL (0.0-0.06); Absolute Basophil Count 0.02 10^3/uL (0.0-0.2); Absolute Monocyte Count 1.01 10^3/uL (0.1-0.8); Absolute Neutrophil Count 15.14 10^3/uL (1.2-6.7); Basophils % 0.1; Eosinophils % 0.2; HCT 37.6 % (36.0-46.0); HGB 11.8 g/dL (11.2-15.7); Immature Grans % 0.4; Lymphocytes % 6.9; MCH 26.3 pg (27.0-33.0); MCHC 31.4 % (32.0-36.0); MCV 83.7 fL (80-95); MPV 10.7 fL (8.0-11.0); Monocytes % 5.8; Neutrophils % 86.6; Nucleated RBC 0 %; Platelet Count 179 10^3/uL (130-400); RBC 4.49 10^6/uL (3.93-5.22); RDW 15.2 % (11.7-14.6); RDW-SD 46.7 fL; WBC 17.48 10^3/uL (4.4-10.8)
[2020-02-02 07:37] LABS: Absolute Eosinophil Count 0.03 10^3/uL (0.0-0.7); Absolute Lymphocyte Count 1.21 10^3/uL (1.2-3.4)
[2020-02-02] MEDS: Budesonide 0.25 MG/2 ML UPD VIAL UPD ×2 (08:03→20:53)
[2020-02-02] MEDS: CEFEPIME 1 GM in Normal Saline 50 ML IVPB ×3 (08:56→23:52)
[2020-02-02] MEDS: VANCOMYCIN 500 MG in Normal Saline 100 ML 100 MG IVPB ×2 (08:56→18:19)
[2020-02-02] MEDS: Polyethylene Glycol 3350 17 GM PACKET PO (08:57)
[2020-02-02] MEDS: Gabapentin 300 MG CAP PO ×2 (08:57→20:53)
[2020-02-02] MEDS: predniSONE 20 MG TAB PO (08:57)
[2020-02-02] MEDS: Aspirin E.C. 81 MG TABEC PO (08:57)
[2020-02-02] MEDS: Magnesium Oxide 400 MG TAB PO ×2 (08:57→20:52)
[2020-02-02] MEDS: dilTIAZem 60 MG TAB PO ×3 (08:57→20:52)
[2020-02-02] MEDS: Senna TAB 1 TAB PO ×2 (08:57→20:52)
[2020-02-02] MEDS: Lisinopril 10 MG TAB PO (08:57)
[2020-02-02] MEDS: buPROPion-XL 150 MG TABCR 300 MG PO (08:57)
[2020-02-02] MEDS: Spironolactone 25 MG TAB 50 MG PO ×2 (08:58→20:52)
[2020-02-02] MEDS: Lactated Ringers 1,000 ML 80 ML IV (11:37)
[2020-02-02] MEDS: Methadone Liquid 10 MG/ML 15 MG PO (12:30)
--- NOTE | 2020-02-02 13:10 | NUR.NOTE ---
Nursing Note: Patient was upset that the dose of methadone had been cut to 15 ml. I explained to the patient that she has needed to receive narcan because the effect of the medication has caused her to have respiratory so severe she has had respirations as low as 7 - 8 rpm. It was explained to the patient that staff here took her pain seriously, but we [id number] to dose cautiously to prevent further respiratory depression, Patient stated she understood.
--- NOTE | 2020-02-02 16:35 | PGE_ITS ---
Date of Service Date of service: 02/02/20 Time of Service: 16:36 Assessment and Plan Assessment and plan (1) Pneumonia: Status: Acute Assessment and plan: Patient is afebrile today. T-max was 38.5 yesterday morning. White cell count is declining down to 17,000 today. Patient remains on cefepime and vancomycin for healthcare acquired pneumonia possible aspiration. Continue current treatment. We will recheck CBC with differential in the morning of follow-up chest x-ray either tomorrow or Tuesday. Qualifiers: Pneumonia type: aspiration pneumonia Aspiration pneumonia type: unspecified Laterality: right Lung location: lower lobe of lung Qualified Code(s): J69.0 - Pneumonitis due to inhalation of food and vomit (2) Altered mental state: Status: Acute Assessment and plan: Now resolved. Etiology likely methadone dose / excessive given her significant wt loss and/or marinol. I have decreased her methadone to 15 mg daily and decreased her gabapentin. Qualifiers: Altered mental status type: somnolence Qualified Code(s): R40.0 - Somnolence (3) Failure to thrive in adult: Status: Acute Assessment and plan: Appetite is Poor . We will add Megace Encourage intake (4) Palliative care patient: Status: Acute Assessment and plan: Appreciate palliative care input She is now a DNR/DNI. Subjective Subjective Interval history since last seen: Patient has required Narcan to 3 times in the last 24 to 48 hours. I have weaned down her gabapentin and her methadone dosing. 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 She was not happy about our decreasing her methadone dose but she understands the reasoning. With respect to her COPD she seems to be at her baseline she is on 2 L/min per nasal cannula not dyspneic at rest however she is really not been making any activity. She is severely debilitated but hopes to return home. I am putting a consult for physical therapy to see her tomorrow and start working with her. I will discuss with case management her discharge plans. I think she is going to need maximal help when she returns home. She has no fever and her cough is nonproductive. Exam Narrative Exam Narrative: Cachectic appearing elderly female lying in bed in no acute distress. Currently on oxygen at 2 L/min per nasal cannula. Neck is supple nontender with muscle wasting. Lungs reveal scattered dry rales no rhonchi Heart is regular rate and rhythm Abdomen scaphoid soft and nontender Lower extremities with muscle wasting and no edema. Objective Objective Clinical Data: Abnormal lab results 02/02/20 Range/Units 07:04 WBC 17.48 H (4.4-10.8) 10^3/uL MCH 26.3 L (27.0-33.0) pg MCHC 31.4 L (32.0-36.0) % RDW 15.2 H (11.7-14.6) % Absolute Neutrophils 15.14 H (1.2-6.7) 10^3/uL Absolute Monocytes 1.01 H (0.1-0.8) 10^3/uL Vital Signs Temperature 37.5 C 02/02/20 15:23 Temperature Source Tympanic 02/02/20 15:23 Pulse 81 02/02/20 15:23 Pulse Rhythm Regular 02/02/20 10:45 Pulse 100 H 01/28/20 21:01 Respiratory Rate 18 02/02/20 15:23 Respiratory Effort Non-Labored 02/02/20 10:45 Respiratory Depth Normal 02/02/20 10:45 Respiratory Pattern Normal 02/02/20 10:45 Blood Pressure 121/76 02/02/20 15:23 Blood Pressure Mean 81 01/28/20 21:00 Blood Pressure Position Supine 01/28/20 13:43 Pulse Oximetry 97 02/02/20 15:23 Oxygen Delivery Method Nasal Cannula 02/02/20 15:23 Oxygen Flow Rate 2 02/02/20 15:23 Pain Level 7 02/02/20 15:23 Comment 02/02/20 07:10 Intake & Output 02/01/20 02/02/20 02/02/20 23:59 11:59 23:59 Intake Total 500 / 2906.134 6310 / 1200 Output Total 1475 / 3875 1225 / 1225 Balance -975 / -2171.667 -25 / -25 Intake: IV 300 / 5579.205 0078 / 1200 Oral 200 / 380 Output: Urine 1475 / 3875 1225 / 1225 Other: Urine Color Pale Pale Yellow Yellow Urine Appearance Clear Clear Comment noted patient spontaneously voided 100 Stool Size Large Stool Characteristics Soft Brown Laboratory Results WBC 17.48 10^3/uL (4.4-10.8) H 02/02/20 07:04 RBC 4.49 10^6/uL (3.93-5.22) 02/02/20 07:04 Hgb 11.8 g/dL (11.2-15.7) 02/02/20 07:04 Hct 37.6 % (36.0-46.0) 02/02/20 07:04 MCV 83.7 fL (80-95) 02/02/20 07:04 MCH 26.3 pg (27.0-33.0) L 02/02/20 07:04 MCHC 31.4 % (32.0-36.0) L 02/02/20 07:04 RDW 15.2 % (11.7-14.6) H 02/02/20 07:04 Plt Count 179 10^3/uL (130-400) 02/02/20 07:04 MPV 10.7 fL (8.0-11.0) 02/02/20 07:04 Immature Gran % 0.4 02/02/20 07:04 Neutrophils % 86.6 02/02/20 07:04 Lymphocytes % 6.9 02/02/20 07:04 Monocytes % 5.8 02/02/20 07:04 Eosinophils % 0.2 02/02/20 07:04 Basophils % 0.1 02/02/20 07:04 Nucleated RBC % 0 % 02/02/20 07:04 Absolute Neutrophils 15.14 10^3/uL (1.2-6.7) H 02/02/20 07:04 Absolute Lymphocytes 1.21 10^3/uL (1.2-3.4) 02/02/20 07:04 Absolute Monocytes 1.01 10^3/uL (0.1-0.8) H 02/02/20 07:04 Absolute Eosinophils 0.03 10^3/uL (0.0-0.7) 02/02/20 07:04 Absolute Basophils 0.02 10^3/uL (0.0-0.2) 02/02/20 07:04 VBG pH 7.48 (7.31-7.41) H 01/28/20 14:10 VBG pCO2 48 mmHg (41-51) 01/28/20 14:10 VBG pO2 44 mmHg 01/28/20 14:10 VBG HCO3 36 mmol/L (23-28) H 01/28/20 14:10 VBG Total CO2 31 mmol/L (24-29) H 01/28/20 14:10 VBG O2 Saturation 83 % 01/28/20 14:10 VBG Base Excess 12 mmol/L (-2-3) H 01/28/20 14:10 Sodium 135 mmol/L (136-145) L 02/01/20 08:40 Potassium 3.9 mmol/L (3.5-5.1) D 02/01/20 08:40 Chloride 98 mmol/L (98-107) 02/01/20 08:40 Carbon Dioxide 34.8 mmol/L (21.0-32.0) H 02/01/20 08:40 Anion Gap 2.2 mmol/L (3-11) L 02/01/20 08:40 BUN 9 mg/dL (7-18) 02/01/20 08:40 Creatinine 0.35 mg/dL (0.55-1.02) L 02/01/20 08:40 Estimated GFR/1.73 m2 >= 60.00 (mL/min/1.73m2) 02/01/20 08:40 Glucose 83 mg/dL (74-106) 02/01/20 08:40 Lactate 1.1 mmol/L (0.6-1.4) 01/28/20 14:10 Calcium 8.2 mg/dL (8.5-10.1) L 02/01/20 08:40 Magnesium 1.8 mg/dL (1.8-2.4) 01/31/20 06:12 Total Bilirubin 0.3 mg/dL (0.2-1.0) 01/31/20 06:12 AST 26 U/L (15-37) 01/31/20 06:12 ALT 22 U/L (14-59) 01/31/20 06:12 Alkaline Phosphatase 83 U/L (46-116) 01/31/20 06:12 Ammonia 28 umol/L (11-32) 01/31/20 11:31 Troponin I < 0.05 ng/mL (<0.06) 01/28/20 17:25 NT-Pro-B Natriuret Pep 211 pg/mL (<300) 01/28/20 14:10 Total Protein 6.1 g/dL (6.4-8.2) L 01/31/20 06:12 Albumin 2.6 g/dL (3.4-5.0) L 01/31/20 06:12 COVID-19 PCR Negative (Negative) 01/28/20 21:20 Nasopharyn COVID-19 PCR Not Applicable 01/28/20 21:20 Ref Test Perform Site [place] [facility] lab 01/28/20 21:20
--- NOTE | 2020-02-02 17:38 | PDOC.CMPRO ---
- If Service Date Differs Date of service: 02/02/20 Time of Service: 17:38 Care Management Progress Note S/O: Kira was sitting up in bed when CM met with her. She reported that she was feeling a bit better today. Per provider, she may be ready for discharge soon, possibly tomorrow. CM will confirm resumption of community services prior to discharge. CM will continue to follow. A: Kira is a 64 year old female admitted to [facility] on 01/30/20 for COPD, Pneumonia P: Anticipate Kira may return home with a resumption of services once medically cleared, though she continues to be weak at this time. She will need a last dose letter for DEANNA. She will follow up with her PCP and discharge plan of care. CM will continue to follow and support discharge planning considerations.
[2020-02-02 18:06] LABS: Vancomycin, Trough 5.2 ug/mL (10.0-20.0)
[2020-02-02] MEDS: Nicotine 14 MG/24 HR PATCH TD (20:52)
[2020-02-02] MEDS: Mirtazapine 15 MG TAB PO (21:14)
[2020-02-03] VITALS (13 sets, daily range): BP systolic 96–131; BP diastolic 61–83; PULSE 66–83; RESP 7–20; TEMP 36–38.8; O2SAT 93–100
[2020-02-03] MEDS: Acetaminophen 325 MG TAB 650 MG PO ×2 (00:08→21:25)
[2020-02-03] MEDS: Albuterol/Ipratropium 3 ML UPD VIAL UPD ×4 (00:35→18:40)
[2020-02-03] MEDS: VANCOMYCIN 500 MG in Normal Saline 100 ML 100 MG IVPB ×2 (01:00→05:35)
[2020-02-03] MEDS: Lactated Ringers 1,000 ML 80 ML IV (02:21)
[2020-02-03] MEDS: CEFEPIME 1 GM in Normal Saline 50 ML IVPB (07:44)
[2020-02-03] MEDS: buPROPion-XL 150 MG TABCR 300 MG PO (07:46)
[2020-02-03] MEDS: Senna TAB 1 TAB PO ×2 (07:46→20:20)
[2020-02-03] MEDS: Nicotine 14 MG/24 HR PATCH TD (07:46)
[2020-02-03] MEDS: Omeprazole 20 MG CAPCR 40 MG PO (07:46)
[2020-02-03] MEDS: Aspirin E.C. 81 MG TABEC PO (07:47)
[2020-02-03] MEDS: Polyethylene Glycol 3350 17 GM PACKET PO (07:47)
[2020-02-03] MEDS: Magnesium Oxide 400 MG TAB PO ×2 (07:47→20:20)
[2020-02-03] MEDS: predniSONE 20 MG TAB PO (07:47)
[2020-02-03] MEDS: Lisinopril 10 MG TAB PO (07:47)
[2020-02-03] MEDS: Spironolactone 25 MG TAB 50 MG PO ×2 (07:47→20:20)
[2020-02-03] MEDS: dilTIAZem 60 MG TAB PO ×3 (07:47→20:20)
[2020-02-03] MEDS: Gabapentin 300 MG CAP PO ×2 (07:47→20:20)
[2020-02-03] MEDS: Budesonide 0.25 MG/2 ML UPD VIAL UPD ×2 (09:20→20:19)
--- NOTE | 2020-02-03 10:52 | PT.INIE ---
Date of service: 02/03/20 Time of Service: 10:10 PT Notes Visit Reasons: COPD, PNEUMONIA Inpatient Physical Therapy Evaluation Date: 02/03/20 Referring Doctor: Dr. Lopez PT Orders: PT CONSULT: treat generalized weakness from respiratory cachexia Precautions: fall, standard Patient Profile/Admitting Diagnosis: Patient admitted from ER, where she presented with shortness of breath. She was admitted for management of cachexia, COPD exacerbation and pneumomediastinum. PMHX: Abnormal CT of the chest (Acute 03/18/17) stable 2mm nodule in AILYN Annual Chest CT for lung cancer screening recommended Acute renal failure (Resolved 04/29/14) a. creatinine bumped from 0.8 to 2.9 b. h/o renal failure 06/2013, presented with creatinine 5.4, which normalized with IV fluids Acute right-sided low back pain without sciatica (Acute 06/08/17) Pain rad thru buttock, but not down leg. Priformis Syndr? [ ] PT [ ] Hx Pain Clinic (Injctn #1 helped, #2 did not). Occasional relief from SOMA. Trial GABAPENTIN 06/09/18.in past Anxiety and depression (Chronic) Bilateral pneumonia (Acute 04/29/14) A. Bilateral lower lobes Biliary colic (Inactive) Cirrhosis Cirrhosis of liver (Chronic) a. History of Hep C treatment. b. Liver biopsy 2005 positive for cirrhosis. 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 AFP levels every six months and ruq US every 12 months COPD (chronic obstructive pulmonary disease) (Chronic) Ongoing tobacco use. COPD (chronic obstructive pulmonary disease) (Chronic) Diabetes (Chronic) On Metformin. Diabetes mellitus DNI (do not intubate) (Acute) Essential hypertension (Chronic) Well maintained, meds tolerated. Hepatitis C HTN (hypertension) Hypertension (Chronic) Methadone dependence (Chronic) Nausea & vomiting (Acute) Neuropathy of right radial nerve (Chronic) a. recently had multiple falls and a hematoma around her humerus b. resolving Pleuritic chest pain (Acute 04/29/14) a. left sided POLST (Physician Orders for Life-Sustaining Treatment) (Acute) Polysubstance abuse (Chronic) a. h/o opiate overdose 06/2013 and 11/2013 b. recently started in [facility] program 03/13/2014 on oral methadone (missed her dose today) Shortness of breath (Acute) Spinal stenosis (Chronic) a. MRI 10/2009, showed L4-5 narrowing Tobacco abuse (Chronic) Tobacco use disorder Varices of esophagus determined by endoscopy (Acute) Social History/Home Situation: Patient lives independently in a trailer in [place]. She has 5-6 ORIN, which she states that she had no longer been able to manage in the days preceding her admission. She has a cane that she uses intermittently. She admits that she's had difficulty ambulating the distance to her bathroom leading up to her admission. She has a neighbor who plans to stay with her for a couple weeks when she returns home. Equipment Owned/DME: cane Subjective: Patient reports feeling weak and short of breath when she moves. She reports being fearful of falling at home. Objective: General Observation: Resting in bed with 2LPM supplemental O2 and IV in RUE. Mental Status: A&Ox3 ROM: Right Upper Extremity: WFL Left Upper Extremity: WFL Right Lower Extremity:WFL Left Lower Extremity: WFL Strength: Right Upper Extremity: Shoulder flexion 3/5. Biceps 3+/5. Triceps 3+/5 Left Upper Extremity: Shoulder flexion 3/5. Biceps 3+/5. Triceps 3+/5 Right Lower Extremity: Hip flexion 3+/5. Quads 3+/5. Ankle DF 3+/5. Left Lower Extremity: Hip flexion 3+/5. Quads 3+/5. Ankle DF 3+/5. Bed Mobility/Transfers: supine-sit: supervision with HOB at 30 degrees sit-supine: supervision with HOB at 30 degrees sit-stand: min A stand-sit: min A Gait: Patient able to perform stand pivot transfer to commode with FWW and min A. She ambulates 6' with FWW, min A, with significant BROWN. She requires seated rest x 1 minute for recovery. Balance: Static Sitting: good Dynamic Sitting: fair Static Standing: fair Dynamic Standing: fair Special Tests: Mobility Limitations Standardized Measure [facility] AM-PAC 6 clicks Basic Mobility Inpatient Short Form: Raw Score: 18 CMS Score: 47% deficit Informed Consent/Education: Patient instructed in purpose of PT consult and plan of care. Assessment: Patient is a 64 year old female referred to physical therapy services with the diagnosis of cachexia, COPD exacerbation. Patient presents with clinical signs and symptoms consistent with mobility deficits related to a combination of acute medical issues and chronic underlying health conditions. I do have concerns about her ability to return home due to her severe limitations in activity tolerance. Discussed concerns with Care Management. She requires skilled PT intervention to maximize activity tolerance and safety, with efforts to acheive maximal independence. Will continue reassessing for appropriate discharge planning. She currently demonstrates the following impairment level findings: 1. Decreased UE strength 2. Decreased LE strength 3. Decreased activity tolerance 4. increased risk for falls Impairments are contributing to the following functional limitations: 1. unable to tolerate household distance ambulation due to BROWN 2. unable to manage stairs 3. unable to independently transfer Patient is assessed as Moderate [id number] complexity based on the following: History: 64-year-old female presenting with severe limitations in functional mobility related to acute medical issues in addition to multiple underlying chronic health conditions. Patient has a complicated medical history, as noted above. Examination: Limitations as noted above Presentation: Evolving Decision Making: Moderate complexity Goals: Goals X1 week 1. Supine-Sit: Independent 2. Sit-Supine: Independent 3. Sit-Stand: Supervision 4. Stand-Sit: Supervision 5. Bed-Chair: Supervision with FW W 6. Chair-Bed: Supervision with FW W 7. Gait: Supervision with FW W x50 feet 8. Stairs: Min assist with single rail x6 steps Plan of Care/Treatment Plan: 1-2x/day, 7 days/week x 1 week. Plan of care has been reviewed with the [facility] providing the service under Physical Therapy direction. Initiate Physical Therapy intervention for strengthening, bed mobility, transfers, gait, stairs, balance training, use of assistive device. DISCHARGE RECOMMENDATIONS: Home with home health PT versus long-term. We will continue reassessing for discharge planning as patient progresses TREATMENT CODE/TIME: [id number] ([id number]) Aixa Izquierdo, PT, DPT [facility]
[2020-02-03] MEDS: Lidocaine 5% Patch 2 PATCH TP (12:09)
[2020-02-03] MEDS: Methadone Liquid 10 MG/ML 20 MG PO (12:10)
[2020-02-03 12:13] LABS: Abs Immature Grans 0.08 10^3/uL (0.0-0.06); Absolute Lymphocyte Count 0.57 10^3/uL (1.2-3.4); Absolute Monocyte Count 0.24 10^3/uL (0.1-0.8); Basophils % 0.1; Eosinophils % 0.1; HCT 41.3 % (36.0-46.0); HGB 12.9 g/dL (11.2-15.7); Immature Grans % 0.5; Lymphocytes % 3.3; MCH 26.3 pg (27.0-33.0); MCHC 31.2 % (32.0-36.0); MCV 84.3 fL (80-95); MPV 10.6 fL (8.0-11.0); Monocytes % 1.4; Neutrophils % 94.6; Nucleated RBC 0 %; Platelet Count 250 10^3/uL (130-400); RDW 15.6 % (11.7-14.6); RDW-SD 47.2 fL; WBC 17.26 10^3/uL (4.4-10.8)
[2020-02-03 12:15] LABS: Absolute Basophil Count 0.02 10^3/uL (0.0-0.2); Absolute Eosinophil Count 0.02 10^3/uL (0.0-0.7); Absolute Neutrophil Count 16.33 10^3/uL (1.2-6.7)
[2020-02-03 12:23] LABS: Anion Gap 3.9 mmol/L (3-11); BUN 7 mg/dL (7-18); CO2 29.1 mmol/L (21.0-32.0); CREATININE 0.41 mg/dL (0.55-1.02); Calcium 8.7 mg/dL (8.5-10.1); Chloride 99 mmol/L (98-107); Glucose 152 mg/dL (74-106); Sodium 132 mmol/L (136-145)
[2020-02-03 12:29] LABS: Potassium 4.8 mmol/L (3.5-5.1)
[2020-02-03] MEDS: VANCOMYCIN 750 MG in Normal Saline 250 ML 166.667 MG IVPB ×2 (13:03→17:57)
--- NOTE | 2020-02-03 14:17 | W.PM.PROGNOT ---
Date of Service Date of service: 02/03/20 Time of Service: 14:17 Assessment and Plan Assessment and plan (1) Pneumonia: Status: Acute Assessment and plan: Patient remains afebrile but still with a persistent leukocytosis. She is receiving prednisone 20 mg daily for COPD along with Pulmicort inhaler and scheduled dose of DuoNeb aerosol treatments. She has an Acapella device to help mobilize her sputum. I have changed antibiotics to Zosyn 4.5 g IV every 8 hour slow infusion along with vancomycin. I have discontinued her cefepime. Will check a repeat chest x-ray a couple of days check inflammatory markers daily. Qualifiers: Pneumonia type: aspiration pneumonia Aspiration pneumonia type: unspecified Laterality: right Lung location: lower lobe of lung Qualified Code(s): J69.0 - Pneumonitis due to inhalation of food and vomit (2) Altered mental state: Status: Resolved Assessment and plan: Now resolved. Etiology likely methadone dose / excessive given her significant wt loss and/or marinol. After methadone was drastically cut to 30 mg daily I decreased it yesterday down to 15 mg daily. Her mental status is remained alert at this time. I am going to increase her methadone gradually to a level that controls her chronic back pain. I put her on 20 mg daily. Her home dose had been 75 mg daily. Qualifiers: Altered mental status type: somnolence Qualified Code(s): R40.0 - Somnolence (3) Spinal stenosis: Status: Chronic Assessment and plan: Gradual titration of her methadone dose. Addition of Lidoderm patches to her spine. Physical therapy to improve mobilization and improve her generalized weakness and ADL performance. Qualifiers: Spinal region: lumbar Neurogenic claudication status: unspecified Qualified Code(s): M48.061 - Spinal stenosis, lumbar region without neurogenic claudication (4) Palliative care patient: Status: Acute Assessment and plan: Appreciate palliative care input She is now a DNR/DNI. C.O.L.S.T. form was completed by palliative care nurse with the patient (5) Cachexia associated with pulmonary fibrosis: Status: Acute Assessment and plan: Continue protein nutritional supplements between meals. Megace added to stimulate her appetite (6) Failure to thrive in adult: Status: Acute Assessment and plan: Appetite is Poor . We will add Megace Encourage intake Subjective Subjective Interval history since last seen: Patient feels a little better today less dyspneic. She is participating with physical therapy but still is profoundly weak. She indicated that she does seem to like the protein supplements that she is getting between meals. She is afebrile but is coughing up a little more productive sputum. I have ordered a sputum culture. Her leukocytosis is not resolved she still has a WBC of 17,000 and her last chest x-ray still showed a persistent right lower lobe infiltrate. Amended discontinue her cefepime but continue her vancomycin and add Zosyn at a higher dose of 4.5 g IV slow infusion over 4 hours every 8 hours. This should cover gram-negative Enterobacteriaceae a as well as anaerobes for what was probably an aspiration pneumonia that occurred during 1 of her episodes of obtundation secondary to her narcotics. Because she has had some increased back pain I have added Lidoderm patches to her spine and slightly increased her methadone dose to 20 mg daily. I will recheck her inflammatory markers in the morning including CBC, ESR, CRP, procalcitonin level. I will wait a couple of days before repeating her chest x-ray. I think she is going to need a prolonged stay in a SNF unit to improve her strength and mobility and ADL performance. Exam Narrative Exam Narrative: Cachectic and kyphotic elderly female sitting up in bed in no respiratory distress. Not using accessory respiratory muscles. Lungs with diffuse fine cellophane type rales. No rhonchi. Heart is regular rate and rhythm. Abdomen scaphoid soft and nontender. Extremities without peripheral cyanosis or edema. Objective Objective Clinical Data: Abnormal lab results 02/02/20 02/03/20 02/03/20 Range/Units 17:45 11:24 11:24 WBC 17.26 H (4.4-10.8) 10^3/uL MCH 26.3 L (27.0-33.0) pg MCHC 31.2 L (32.0-36.0) % RDW 15.6 H (11.7-14.6) % Absolute Neutrophils 16.33 H (1.2-6.7) 10^3/uL Absolute Lymphocytes 0.57 L (1.2-3.4) 10^3/uL Sodium 132 L (136-145) mmol/L Creatinine 0.41 L (0.55-1.02) mg/dL Glucose 152 H (74-106) mg/dL Vancomycin Trough 5.2 L (10.0-20.0) ug/mL Vital Signs Temperature 36.8 C 02/03/20 11:41 Temperature Source Tympanic 02/03/20 11:41 Pulse 83 02/03/20 11:41 Pulse Rhythm Regular 02/03/20 09:10 Pulse 100 H 01/28/20 21:01 Respiratory Rate 19 02/03/20 11:41 Respiratory Effort 02/03/20 09:10 Respiratory Depth Shallow 02/03/20 09:10 Respiratory Pattern Normal 02/03/20 09:10 Blood Pressure 123/79 02/03/20 11:41 Blood Pressure Mean 81 01/28/20 21:00 Blood Pressure Position Supine 01/28/20 13:43 Pulse Oximetry 100 02/03/20 11:41 Oxygen Delivery Method Nasal Cannula 02/03/20 11:36 Oxygen Flow Rate 2 02/03/20 11:36 Pain Level 0 02/03/20 11:41 Comment 02/03/20 11:41 Intake & Output 02/02/20 02/03/20 02/03/20 23:59 11:59 23:59 Intake Total 530 / 1730 1150 / 1150 Output Total 1000 / 2225 1300 / 1825 525 / 1825 Balance -470 / -495 -150 / -675 -525 / -675 Intake: IV 50 / 1250 1150 / 1150 Oral 480 / 480 Output: Urine 1000 / 2225 1300 / 1825 525 / 1825 Other: Urine Color Pale Yellow Yellow Urine Appearance Clear Clear Clear Urine Odor Strong Comment pvr 121 Voiding Methods Bedside Commode Bedside Commode Bedside Commode Laboratory Results WBC 17.26 10^3/uL (4.4-10.8) H 02/03/20 11:24 RBC 4.90 10^6/uL (3.93-5.22) 02/03/20 11:24 Hgb 12.9 g/dL (11.2-15.7) 02/03/20 11:24 Hct 41.3 % (36.0-46.0) 02/03/20 11:24 MCV 84.3 fL (80-95) 02/03/20 11:24 MCH 26.3 pg (27.0-33.0) L 02/03/20 11:24 MCHC 31.2 % (32.0-36.0) L 02/03/20 11:24 RDW 15.6 % (11.7-14.6) H 02/03/20 11:24 Plt Count 250 10^3/uL (130-400) 02/03/20 11:24 MPV 10.6 fL (8.0-11.0) 02/03/20 11:24 Immature Gran % 0.5 02/03/20 11:24 Neutrophils % 94.6 02/03/20 11:24 Lymphocytes % 3.3 02/03/20 11:24 Monocytes % 1.4 02/03/20 11:24 Eosinophils % 0.1 02/03/20 11:24 Basophils % 0.1 02/03/20 11:24 Nucleated RBC % 0 % 02/03/20 11:24 Absolute Neutrophils 16.33 10^3/uL (1.2-6.7) H 02/03/20 11:24 Absolute Lymphocytes 0.57 10^3/uL (1.2-3.4) L 02/03/20 11:24 Absolute Monocytes 0.24 10^3/uL (0.1-0.8) 02/03/20 11:24 Absolute Eosinophils 0.02 10^3/uL (0.0-0.7) 02/03/20 11:24 Absolute Basophils 0.02 10^3/uL (0.0-0.2) 02/03/20 11:24 VBG pH 7.48 (7.31-7.41) H 01/28/20 14:10 VBG pCO2 48 mmHg (41-51) 01/28/20 14:10 VBG pO2 44 mmHg 01/28/20 14:10 VBG HCO3 36 mmol/L (23-28) H 01/28/20 14:10 VBG Total CO2 31 mmol/L (24-29) H 01/28/20 14:10 VBG O2 Saturation 83 % 01/28/20 14:10 VBG Base Excess 12 mmol/L (-2-3) H 01/28/20 14:10 Sodium 132 mmol/L (136-145) L 02/03/20 11:24 Potassium 4.8 mmol/L (3.5-5.1) D 02/03/20 11:24 Chloride 99 mmol/L (98-107) 02/03/20 11:24 Carbon Dioxide 29.1 mmol/L (21.0-32.0) 02/03/20 11:24 Anion Gap 3.9 mmol/L (3-11) 02/03/20 11:24 BUN 7 mg/dL (7-18) 02/03/20 11:24 Creatinine 0.41 mg/dL (0.55-1.02) L 02/03/20 11:24 Estimated GFR/1.73 m2 >= 60.00 (mL/min/1.73m2) 02/03/20 11:24 Glucose 152 mg/dL (74-106) H 02/03/20 11:24 Lactate 1.1 mmol/L (0.6-1.4) 01/28/20 14:10 Calcium 8.7 mg/dL (8.5-10.1) 02/03/20 11:24 Magnesium 1.8 mg/dL (1.8-2.4) 01/31/20 06:12 Total Bilirubin 0.3 mg/dL (0.2-1.0) 01/31/20 06:12 AST 26 U/L (15-37) 01/31/20 06:12 ALT 22 U/L (14-59) 01/31/20 06:12 Alkaline Phosphatase 83 U/L (46-116) 01/31/20 06:12 Ammonia 28 umol/L (11-32) 01/31/20 11:31 Troponin I < 0.05 ng/mL (<0.06) 01/28/20 17:25 NT-Pro-B Natriuret Pep 211 pg/mL (<300) 01/28/20 14:10 Total Protein 6.1 g/dL (6.4-8.2) L 01/31/20 06:12 Albumin 2.6 g/dL (3.4-5.0) L 01/31/20 06:12 Vancomycin Trough 10.0 ug/mL (10.0-20.0) 02/03/20 11:24 COVID-19 PCR Negative (Negative) 01/28/20 21:20 Nasopharyn COVID-19 PCR Not Applicable 01/28/20 21:20 Ref Test Perform Site [place] [facility] 01/28/20 21:20
[2020-02-03] MEDS: Ibuprofen 400 MG TAB PO (15:36)
[2020-02-03] MEDS: PIPERACILLIN/TAZO 4.5 GM in Normal Saline 100 ML IVPB (15:38)
[2020-02-03] MEDS: Normal Saline Flush 10 ML SYR IVP (16:26)
--- NOTE | 2020-02-03 17:35 | PDOC.CMPRO ---
- If Service Date Differs Date of service: 02/03/20 Time of Service: 17:35 Care Management Progress Note S/O: Kira was sitting up in bed when CM met with her today. She reported that she has six steps to get into her house. CM asked how she is doing with PT while here, which she stated that she is doing ok but is concerned about the steps into her home. PT is unsure if she will be able to manage the steps. CM will discuss options with Kira, such as having a ramp put in place. She stated that she does not go out often, as she has difficulty getting around with her health conditions. CM will continue to follow. A: Kira is a 64 year old female admitted to [facility] on 01/30/20 for COPD, Pneumonia P: Anticipate Kira may return home with a resumption of services once medically cleared, though she continues to be weak at this time. She will need a last dose letter for BAART. She will follow up with her PCP and discharge plan of care. CM will continue to follow and support discharge planning considerations.
[2020-02-03 17:44] LABS: Bilirubin Negative (Negative); Blood Negative (Negative); Clarity Clear (Clear); Glucose Negative (Negative); Ketones Negative (Negative); Leukocyte Esterase Small (Negative); Nitrite Negative (Negative); Urobilinogen 0.2 EU/dL (Up TO 0.2); pH 8.5 (5-8)
[2020-02-03 18:00] LABS: Bacteria Negative HPF (Negative); C & S Indicated? C&S Done As Ordered; Crystals Negative HPF (Negative); Epithelial Cells Few HPF (Negative); Mucus Negative (Negative); RBC 0-2 HPF (0-2)
[2020-02-03] MEDS: Mirtazapine 15 MG TAB PO (21:25)
[2020-02-03] MEDS: LIDOCAINE Patch Removal 2 EACH TP (21:27)
[2020-02-04] VITALS (13 sets, daily range): BP systolic 105–158; BP diastolic 52–79; PULSE 74–91; RESP 2–20; TEMP 36–37; O2SAT 96–100
[2020-02-04] MEDS: Lactated Ringers 1,000 ML 80 ML IV (00:25)
[2020-02-04] MEDS: VANCOMYCIN 750 MG in Normal Saline 250 ML 166.667 MG IVPB ×2 (00:25→14:52)
[2020-02-04] MEDS: Normal Saline Flush 10 ML SYR IVP ×2 (03:32→20:06)
[2020-02-04] MEDS: PIPERACILLIN/TAZO 4.5 GM in Normal Saline 100 ML IVPB ×3 (03:32→20:07)
[2020-02-04] MEDS: VANCOMYCIN 750 MG in Normal Saline 250 ML 167 MG IVPB ×3 (05:52→21:40)
[2020-02-04] MEDS: Albuterol/Ipratropium 3 ML UPD VIAL UPD ×4 (05:53→23:37)
[2020-02-04] MEDS: Polyethylene Glycol 3350 17 GM PACKET PO (08:00)
[2020-02-04] MEDS: Nicotine 14 MG/24 HR PATCH TD (08:01)
[2020-02-04] MEDS: predniSONE 20 MG TAB PO (08:01)
[2020-02-04] MEDS: dilTIAZem 60 MG TAB PO ×3 (08:02→19:55)
[2020-02-04] MEDS: Magnesium Oxide 400 MG TAB PO ×2 (08:02→19:56)
[2020-02-04] MEDS: buPROPion-XL 150 MG TABCR 300 MG PO (08:02)
[2020-02-04] MEDS: Senna TAB 1 TAB PO ×2 (08:02→19:55)
[2020-02-04] MEDS: Gabapentin 300 MG CAP PO ×2 (08:02→19:56)
[2020-02-04] MEDS: Omeprazole 20 MG CAPCR 40 MG PO (08:02)
[2020-02-04] MEDS: Lisinopril 10 MG TAB PO (08:03)
[2020-02-04] MEDS: Aspirin E.C. 81 MG TABEC PO (08:03)
[2020-02-04] MEDS: Spironolactone 25 MG TAB 50 MG PO ×2 (08:03→19:56)
[2020-02-04 08:53] LABS: Absolute Eosinophil Count 0.11 10^3/uL (0.0-0.7); Absolute Lymphocyte Count 2.34 10^3/uL (1.2-3.4); Absolute Neutrophil Count 14.71 10^3/uL (1.2-6.7); Basophils % 0.2; Eosinophils % 0.6; HCT 38.9 % (36.0-46.0); HGB 12.1 g/dL (11.2-15.7); Immature Grans % 0.5; Lymphocytes % 12.8; MCH 26.2 pg (27.0-33.0); MCHC 31.1 % (32.0-36.0); MCV 84.4 fL (80-95); MPV 9.8 fL (8.0-11.0); Monocytes % 5.5; Neutrophils % 80.4; Nucleated RBC 0 %; Platelet Count 219 10^3/uL (130-400); RBC 4.61 10^6/uL (3.93-5.22); RDW 15.6 % (11.7-14.6); RDW-SD 47.7 fL; WBC 18.29 10^3/uL (4.4-10.8)
[2020-02-04 08:59] LABS: Absolute Basophil Count 0.04 10^3/uL (0.0-0.2); Absolute Monocyte Count 1.01 10^3/uL (0.1-0.8)
[2020-02-04 09:23] LABS: Procalcitonin < 0.1 ng/mL
[2020-02-04] MEDS: Scopolamine 1 MG/3 DAYS PATCH TD (09:30)
[2020-02-04 09:41] LABS: Anion Gap 6.6 mmol/L (3-11); BUN 5 mg/dL (7-18); CO2 27.4 mmol/L (21.0-32.0); CREATININE 0.33 mg/dL (0.55-1.02); Calcium 8.4 mg/dL (8.5-10.1); Chloride 105 mmol/L (98-107); Folate 16.5 ng/mL (8.6-20.0); Glucose 106 mg/dL (74-106); Potassium 4.2 mmol/L (3.5-5.1); Sodium 139 mmol/L (136-145); Vitamin B12 805 pg/mL (193-986)
--- NOTE | 2020-02-04 09:43 | PDOC.CMPRO ---
- If Service Date Differs Date of service: 02/04/20 Time of Service: 09:43 Care Management Progress Note S/O: Kira was lying in bed when CM met with her today. CM discussed correction CLARITA with Kira, which will provide her with more assistance in the home if she qualifies. She agreed to filling out the application with CM, but CM was interrupted when Kira needed to use the bathroom. CM was unable to meet with her again, but will attempt tomorrow. CM will continue to follow. A: Kira is a 64 year old female admitted to [facility] on 01/30/20 for COPD, Pneumonia P: Anticipate Kira may return home with a resumption of services once medically cleared, though she continues to be weak at this time. She will need a last dose letter for DEANNA. She will follow up with her PCP and discharge plan of care. CM will continue to follow and support discharge planning considerations.
[2020-02-04 09:48] LABS: ESR 25 mm/hr (0-30)
[2020-02-04] MEDS: Lidocaine 5% Patch 2 PATCH TP (10:45)
[2020-02-04 11:54] LABS: Vancomycin, Trough 18.7 ug/mL (10.0-20.0)
[2020-02-04] MEDS: Methadone Liquid 10 MG/ML 20 MG PO (12:07)
--- NOTE | 2020-02-04 12:58 | W.PM.PROGNOT ---
Date of Service Date of service: 02/04/20 Time of Service: 12:58 Assessment and Plan Assessment and plan (1) Pneumonia: Status: Acute Assessment and plan: Patient remains afebrile and her oxygen requirements have not increased. She seems to be less dyspneic. Today is her second day of Zosyn after having been on cefepime and vancomycin and prior to that she been on Rocephin and doxycycline. She remains on prednisone as well as DuoNeb treatments. I will check a repeat chest x-ray in the morning Qualifiers: Pneumonia type: aspiration pneumonia Aspiration pneumonia type: unspecified Laterality: right Lung location: lower lobe of lung Qualified Code(s): J69.0 - Pneumonitis due to inhalation of food and vomit (2) Altered mental state: Status: Resolved Assessment and plan: Now resolved. Etiology likely methadone dose / excessive given her significant wt loss and/or marinol. After methadone was drastically cut to 30 mg daily I decreased it yesterday down to 15 mg daily. Her mental status is remained alert at this time. I am going to increase her methadone gradually to a level that controls her chronic back pain. I will put the patient on 30 mg of methadone a day and see if this controls her pain in addition to the Lidoderm patches Qualifiers: Altered mental status type: somnolence Qualified Code(s): R40.0 - Somnolence (3) Spinal stenosis: Status: Chronic Assessment and plan: Gradual titration of her methadone dose. Addition of Lidoderm patches to her spine. Physical therapy to improve mobilization and improve her generalized weakness and ADL performance. Qualifiers: Spinal region: lumbar Neurogenic claudication status: unspecified Qualified Code(s): M48.061 - Spinal stenosis, lumbar region without neurogenic claudication (4) Palliative care patient: Status: Acute Assessment and plan: Appreciate palliative care input She is now a DNR/DNI. C.O.L.S.T. form was completed by palliative care nurse with the patient (5) Cachexia associated with pulmonary fibrosis: Status: Acute Assessment and plan: Continue protein nutritional supplements between meals. Megace added to stimulate her appetite (6) Failure to thrive in adult: Status: Acute Assessment and plan: Megace is been added to her regimen and she seems to be improving on her p.o. intake and taking protein supplemental shakes. Encourage intake Subjective Subjective Interval history since last seen: Patient states overall she is feeling better. She is less short of breath. She is complaining of more back pain and asked if I could adjust her methadone.She denies any nausea or vomiting and actually has been eating better. Her white blood cell count remains elevated at 18,000. However I just changed her to Zosyn yesterday. Exam Narrative Exam Narrative: Cachectic and kyphotic elderly female sitting up in bed in no respiratory distress. Not using accessory respiratory muscles. Lungs with diffuse fine cellophane type rales. No rhonchi. Heart is regular rate and rhythm. Abdomen scaphoid soft and nontender. Extremities without peripheral cyanosis or edema. Objective Objective Clinical Data: Abnormal lab results 02/03/20 02/04/20 02/04/20 Range/Units 17:30 08:30 08:30 WBC 18.29 H (4.4-10.8) 10^3/uL MCH 26.2 L (27.0-33.0) pg MCHC 31.1 L (32.0-36.0) % RDW 15.6 H (11.7-14.6) % Absolute Neutrophils 14.71 H (1.2-6.7) 10^3/uL Absolute Monocytes 1.01 H (0.1-0.8) 10^3/uL BUN 5 L (7-18) mg/dL Creatinine 0.33 L (0.55-1.02) mg/dL Calcium 8.4 L (8.5-10.1) mg/dL Urine pH 8.5 H (5-8) Ur Leukocyte Esterase Small H (Negative) Urine WBC 10-20 H (0-5) HPF Vital Signs Temperature 36.8 C 02/04/20 11:30 Temperature Source Tympanic 02/04/20 11:30 Pulse 91 H 02/04/20 11:30 Pulse Rhythm Regular 02/04/20 07:50 Pulse 100 H 01/28/20 21:01 Respiratory Rate 18 02/04/20 11:30 Respiratory Effort 02/04/20 07:50 Respiratory Depth Normal 02/04/20 07:50 Respiratory Pattern Normal 02/04/20 07:50 Blood Pressure 117/79 02/04/20 11:30 Blood Pressure Mean 81 01/28/20 21:00 Blood Pressure Position Supine 01/28/20 13:43 Pulse Oximetry 98 02/04/20 11:30 Oxygen Delivery Method Room Air 02/04/20 11:30 Oxygen Flow Rate 0 02/04/20 11:30 Pain Level 8 02/04/20 12:07 Comment 02/03/20 17:12 Intake & Output 02/03/20 02/04/20 02/04/20 23:59 11:59 23:59 Intake Total 1950 / 3150 1320 / 1320 Output Total 1225 / 2525 1300 / 1550 250 / 1550 Balance 725 / 625 20 / -230 -250 / -230 Intake: IV 1700 / 2900 600 / 600 Oral 250 / 250 720 / 720 Output: Urine 1225 / 2525 1300 / 1550 250 / 1550 Other: Urine Color Yellow Yellow Yellow Urine Appearance Clear Clear Urine Odor Normal None Voiding Methods Bedside Commode Bedside Commode Bedside Commode Laboratory Results WBC 18.29 10^3/uL (4.4-10.8) H 02/04/20 08:30 RBC 4.61 10^6/uL (3.93-5.22) 02/04/20 08:30 Hgb 12.1 g/dL (11.2-15.7) 02/04/20 08:30 Hct 38.9 % (36.0-46.0) 02/04/20 08:30 MCV 84.4 fL (80-95) 02/04/20 08:30 MCH 26.2 pg (27.0-33.0) L 02/04/20 08:30 MCHC 31.1 % (32.0-36.0) L 02/04/20 08:30 RDW 15.6 % (11.7-14.6) H 02/04/20 08:30 Plt Count 219 10^3/uL (130-400) 02/04/20 08:30 MPV 9.8 fL (8.0-11.0) 02/04/20 08:30 Immature Gran % 0.5 02/04/20 08:30 Neutrophils % 80.4 02/04/20 08:30 Band Neutrophils % Cancelled 02/04/20 07:18 Lymphocytes % 12.8 02/04/20 08:30 Atypical Lymphs % Cancelled 02/04/20 07:18 Monocytes % 5.5 02/04/20 08:30 Eosinophils % 0.6 02/04/20 08:30 Basophils % 0.2 02/04/20 08:30 Metamyelocytes % Cancelled 02/04/20 07:18 Myelocytes % Cancelled 02/04/20 07:18 Promyelocytes % Cancelled 02/04/20 07:18 Other Cells % Cancelled 02/04/20 07:18 Nucleated RBC % 0 % 02/04/20 08:30 Absolute Neutrophils 14.71 10^3/uL (1.2-6.7) H 02/04/20 08:30 Absolute Lymphocytes 2.34 10^3/uL (1.2-3.4) 02/04/20 08:30 Absolute Monocytes 1.01 10^3/uL (0.1-0.8) H 02/04/20 08:30 Absolute Eosinophils 0.11 10^3/uL (0.0-0.7) 02/04/20 08:30 Absolute Basophils 0.04 10^3/uL (0.0-0.2) 02/04/20 08:30 RBC Morphology Cancelled 02/04/20 07:18 Polychromasia Cancelled 02/04/20 07:18 Hypochromasia Cancelled 02/04/20 07:18 Poikilocytosis Cancelled 02/04/20 07:18 Basophilic Stippling Cancelled 02/04/20 07:18 Anisocytosis Cancelled 02/04/20 07:18 Microcytosis Cancelled 02/04/20 07:18 Macrocytosis Cancelled 02/04/20 07:18 Spherocytes Cancelled 02/04/20 07:18 Tear Drop Cells Cancelled 02/04/20 07:18 Ovalocytes Cancelled 02/04/20 07:18 Stomatocytes Cancelled 02/04/20 07:18 [place] Bodies Cancelled 02/04/20 07:18 [place] Cells/Echinocytes Cancelled 02/04/20 07:18 Acanthocytes (Spur) Cancelled 02/04/20 07:18 Schistocytes Cancelled 02/04/20 07:18 ESR 25 mm/hr (0-30) 02/04/20 08:30 VBG pH 7.48 (7.31-7.41) H 01/28/20 14:10 VBG pCO2 48 mmHg (41-51) 01/28/20 14:10 VBG pO2 44 mmHg 01/28/20 14:10 VBG HCO3 36 mmol/L (23-28) H 01/28/20 14:10 VBG Total CO2 31 mmol/L (24-29) H 01/28/20 14:10 VBG O2 Saturation 83 % 01/28/20 14:10 VBG Base Excess 12 mmol/L (-2-3) H 01/28/20 14:10 Sodium 139 mmol/L (136-145) 02/04/20 08:30 Potassium 4.2 mmol/L (3.5-5.1) 02/04/20 08:30 Chloride 105 mmol/L (98-107) 02/04/20 08:30 Carbon Dioxide 27.4 mmol/L (21.0-32.0) 02/04/20 08:30 Anion Gap 6.6 mmol/L (3-11) 02/04/20 08:30 BUN 5 mg/dL (7-18) L 02/04/20 08:30 Creatinine 0.33 mg/dL (0.55-1.02) L 02/04/20 08:30 Estimated GFR/1.73 m2 >= 60.00 (mL/min/1.73m2) 02/04/20 08:30 Glucose 106 mg/dL (74-106) 02/04/20 08:30 Lactate 1.1 mmol/L (0.6-1.4) 01/28/20 14:10 Calcium 8.4 mg/dL (8.5-10.1) L 02/04/20 08:30 Magnesium 1.8 mg/dL (1.8-2.4) 01/31/20 06:12 Total Bilirubin 0.3 mg/dL (0.2-1.0) 01/31/20 06:12 AST 26 U/L (15-37) 01/31/20 06:12 ALT 22 U/L (14-59) 01/31/20 06:12 Alkaline Phosphatase 83 U/L (46-116) 01/31/20 06:12 Ammonia 28 umol/L (11-32) 01/31/20 11:31 Troponin I < 0.05 ng/mL (<0.06) 01/28/20 17:25 NT-Pro-B Natriuret Pep 211 pg/mL (<300) 01/28/20 14:10 Total Protein 6.1 g/dL (6.4-8.2) L 01/31/20 06:12 Albumin 2.6 g/dL (3.4-5.0) L 01/31/20 06:12 Vitamin B12 805 pg/mL (193-986) 02/04/20 08:30 Folate 16.5 ng/mL (8.6-20.0) 02/04/20 08:30 Procalcitonin < 0.1 ng/mL 02/04/20 08:30 Urine Color Yellow (Yellow) 02/03/20 17:30 Urine Clarity Clear (Clear) 02/03/20 17:30 Urine pH 8.5 (5-8) H 02/03/20 17:30 Ur Specific [place] 1.020 (1.005-1.025) 02/03/20 17:30 Urine Protein Negative mg/dL (Negative) 02/03/20 17:30 Urine Ketones Negative mg/dL (Negative) 02/03/20 17:30 Urine Blood Negative (Negative) 02/03/20 17:30 Urine Nitrite Negative (Negative) 02/03/20 17:30 Urine Bilirubin Negative (Negative) 02/03/20 17:30 Urine Urobilinogen 0.2 EU/dL (Up TO 0.2) 02/03/20 17:30 Ur Leukocyte Esterase Small (Negative) H 02/03/20 17:30 Urine RBC 0-2 HPF (0-2) 02/03/20 17:30 Urine WBC 10-20 HPF (0-5) H 02/03/20 17:30 Ur Epithelial Cells Few HPF (Negative) 02/03/20 17:30 Urine Crystals Negative HPF (Negative) 02/03/20 17:30 Urine Bacteria Negative HPF (Negative) 02/03/20 17:30 Urine Mucus Negative (Negative) 02/03/20 17:30 Ur Culture Indicated? C&s done as ordered 02/03/20 17:30 Urine Glucose Negative mg/dL (Negative) 02/03/20 17:30 Vancomycin Trough 18.7 ug/mL (10.0-20.0) 02/04/20 11:30 COVID-19 PCR Negative (Negative) 01/28/20 21:20 Nasopharyn COVID-19 PCR Not Applicable 01/28/20 21:20 Ref Test Perform Site [facility] lab 01/28/20 21:20
--- NOTE | 2020-02-04 14:41 | PT.INTREAT ---
Date of service: 02/04/20 Time of Service: 14:30 PT Notes Visit Reasons: COPD, PNEUMONIA Inpatient Physical Therapy Treatment Note [facility] Date: 02/04/2020 SUBJECTIVE: Kira states that she is feeling a little better, although she is still SOB. She is willing to walk with me in am. Refuses PT in pm due to needing rest. OBJECTIVE: [] BED MOBILITY/TRANSFERS Supine-sit: S Sit-supine: S Sit-stand: SBA Stand-sit: SBA GAIT Assistive Device: FWW Weight bearing:FWB Assist: CGA Distance: 50' THEREX: performed a minimal LE strengthening routine while seated at EOB. See flowsheet for details. ASSESSMENT: increased anxiety and SOB noted after she asked if there were chairs to sit in if she needed to. She may do better with ambulation if wc followed her. Endurance is low. PLAN: will continue to progress her strength, endurance and functional mobility as per PT POC. Will need to incorporate stair negotiations, and follow with WC during ambulation. TREATMENT CODE/TIME: 20 min in am, refused pm session. [id number].
[2020-02-04] MEDS: Methadone Liquid 10 MG/ML PO (14:53)
[2020-02-04] MEDS: Budesonide 0.25 MG/2 ML UPD VIAL UPD (19:56)
[2020-02-04] MEDS: Mirtazapine 15 MG TAB PO (21:39)
[2020-02-04] MEDS: LIDOCAINE Patch Removal 2 EACH TP (21:41)
[2020-02-05] VITALS (13 sets, daily range): BP systolic 95–124; BP diastolic 57–86; PULSE 61–103; RESP 2–20; TEMP 36.9–37.2; O2SAT 93–100
--- NOTE | 2020-02-05 | DI.CT_ITS ---
EXAM: CT HEAD WO CLINICAL HISTORY: Confusion TECHNIQUE: COMPARISON: CT HEAD WITHOUT CONTRAST from 07/16/2016 FINDINGS: Noncontrast cranial CT was performed. There is moderate generalized cerebral atrophy and there are p atchy areas of decreased attenuation the periventricular white matter consistent with microvascular i schemic change. There is no evidence of acute intracranial hemorrhage, mass effect, or midline shift. The orbital and temporal bone structures appear intact. Visualized mastoid air cells and paranasal s inuses appear clear. IMPRESSION: No evidence of acute intracranial process. RADIATION DOSE DELIVERED: 704.72mGy.cm Total DLP
[2020-02-05] MEDS: Normal Saline Flush 10 ML SYR IVP ×3 (03:30→21:44)
[2020-02-05] MEDS: PIPERACILLIN/TAZO 4.5 GM in Normal Saline 100 ML IVPB ×3 (03:30→19:52)
[2020-02-05] MEDS: VANCOMYCIN 750 MG in Normal Saline 250 ML 167 MG IVPB ×3 (05:19→21:43)
[2020-02-05] MEDS: Albuterol/Ipratropium 3 ML UPD VIAL UPD ×4 (05:19→23:24)
[2020-02-05 07:29] LABS: Abs Immature Grans 0.18 10^3/uL (0.0-0.06); Absolute Eosinophil Count 0.11 10^3/uL (0.0-0.7); Eosinophils % 0.5; HCT 40.1 % (36.0-46.0); HGB 12.2 g/dL (11.2-15.7); Immature Grans % 0.8; MCHC 30.4 % (32.0-36.0); MCV 85.3 fL (80-95); MPV 9.7 fL (8.0-11.0); Monocytes % 6.1; Neutrophils % 81.6; Nucleated RBC 0 %; Platelet Count 234 10^3/uL (130-400); RDW 15.6 % (11.7-14.6); RDW-SD 48.7 fL
[2020-02-05 07:31] LABS: Absolute Lymphocyte Count 2.43 10^3/uL (1.2-3.4); Absolute Monocyte Count 1.35 10^3/uL (0.1-0.8); Absolute Neutrophil Count 18.03 10^3/uL (1.2-6.7)
[2020-02-05 07:57] LABS: Anion Gap 6.8 mmol/L (3-11); BUN 12 mg/dL (7-18); CO2 28.2 mmol/L (21.0-32.0); CREATININE 0.48 mg/dL (0.55-1.02); Calcium 8.6 mg/dL (8.5-10.1); Chloride 102 mmol/L (98-107); Glucose 91 mg/dL (74-106); Potassium 4.1 mmol/L (3.5-5.1); Sodium 137 mmol/L (136-145)
--- NOTE | 2020-02-05 08:00 | DI.RAD_ITS ---
EXAM: XR CHEST 2V PA LATERAL CLINICAL HISTORY: follow up pneumonia TECHNIQUE: COMPARISON: CR,XR XR CHEST 2V PA LATERAL from 05/21/2019 CR XR RIBS ONLY RT from 10/31/2019 CR XR PORTABLE CHEST AP from 02/01/2020 FINDINGS: PA and lateral chest was obtained. There are severe chronic pulmonary interstitial changes. No defi nite acute process. No pleural effusion seen. Cardiac size within normal limits. IMPRESSION: Severe chronic fibrotic changes, no definite acute consolidation. Small areas of acute consolidation could be difficult to appreciate, consider additional evaluation with chest CT if clinically indicat ed. RADIATION DOSE DELIVERED: Total DLP
[2020-02-05] MEDS: Budesonide 0.25 MG/2 ML UPD VIAL UPD ×2 (08:10→19:54)
[2020-02-05 08:53] LABS: C-Reactive Protein 0.87 mg/dL (0.0-0.3)
[2020-02-05] MEDS: Lidocaine 5% Patch 2 PATCH TP (09:36)
[2020-02-05] MEDS: Nicotine 14 MG/24 HR PATCH TD (09:36)
[2020-02-05] MEDS: Magnesium Oxide 400 MG TAB PO ×2 (09:38→19:54)
[2020-02-05] MEDS: predniSONE 10 MG TAB PO (09:38)
[2020-02-05] MEDS: buPROPion-XL 150 MG TABCR 300 MG PO (09:38)
[2020-02-05] MEDS: Polyethylene Glycol 3350 17 GM PACKET PO (09:38)
[2020-02-05] MEDS: Senna TAB 1 TAB PO ×2 (09:38→19:53)
[2020-02-05] MEDS: Omeprazole 20 MG CAPCR 40 MG PO (09:38)
[2020-02-05] MEDS: Spironolactone 25 MG TAB 50 MG PO ×2 (09:38→19:53)
[2020-02-05] MEDS: Gabapentin 300 MG CAP PO (09:38)
[2020-02-05] MEDS: dilTIAZem 60 MG TAB PO ×3 (09:38→19:54)
[2020-02-05] MEDS: Aspirin E.C. 81 MG TABEC PO (09:39)
[2020-02-05] MEDS: Lisinopril 10 MG TAB PO (09:39)
--- NOTE | 2020-02-05 11:52 | W.PM.PROGNOT ---
Date of Service Date of service: 02/05/20 Time of Service: 11:53 Assessment and Plan Assessment and plan (1) Pneumonia: Status: Acute Assessment and plan: Patient is not hypoxemic in fact her O2 saturation is 100% on 1 L/min per nasal cannula. She is afebrile. Nevertheless she still has a leukocytosis with a white count 22,000. She is on prednisone but her dose has not been changed she is on 20 mg a day. Review of her trend on her white cell count shows that she is chronically leukocytosis. In fact dating back to 2019 she has been anywhere from 18-20,000. I suspect that she has some myelodysplastic syndrome or even a leukemia. Today is her second full day of Zosyn. Prior to that she was treated with cefepime and vancomycin. She still remains on vancomycin. She may need a repeat CT scan possibly high-resolution CT to evaluate her chronic fibrotic changes and to ensure that there is no consolidation since x-rays do not seem to be helpful. I am not sure that we can use her white count is any guidance in terms of whether or not an infection is present. Her cough is really nonproductive at this point and she is afebrile. At the best course of treatment is to treat her empirically for 5 to 7 days and if there is no change discontinue antibiotics altogether. Qualifiers: Aspiration pneumonia type: unspecified Laterality: right Lung location: lower lobe of lung Pneumonia type: aspiration pneumonia Qualified Code(s): J69.0 - Pneumonitis due to inhalation of food and vomit (2) Altered mental state: Status: Resolved Assessment and plan: Still think her transient mental status changes are secondary to metabolic encephalopathy due to medications. Are pretty much holding off the medicines that are known to cause hallucinations. Gabapentin and mirtazapine have been withheld as well as her methadone. Qualifiers: Altered mental status type: somnolence Qualified Code(s): R40.0 - Somnolence (3) Spinal stenosis: Status: Chronic Assessment and plan: We will reinstitute her methadone once her mental status is clear Qualifiers: Neurogenic claudication status: unspecified Spinal region: lumbar Qualified Code(s): M48.061 - Spinal stenosis, lumbar region without neurogenic claudication (4) Palliative care patient: Status: Acute Assessment and plan: Appreciate palliative care input She is now a DNR/DNI. C.O.L.S.T. form was completed by palliative care nurse with the patient (5) Cachexia associated with pulmonary fibrosis: Status: Acute Assessment and plan: Continue protein nutritional supplements between meals. Megace added to stimulate her appetite which seems to be working (6) Failure to thrive in adult: Status: Acute Assessment and plan: Megace has been added to her regimen and she seems to be improving on her p.o. intake and taking protein supplemental shakes. Encourage intake (7) Leukocytosis, unspecified: Status: Chronic Assessment and plan: I am not convinced that her leukocytosis is secondary to any infection and in fact her WBC have been persistently elevated for over a year. She may need a BM biopsy but I am not sure that she would consent to one. I will discuss this further with her in the a.m. Qualifiers: Leukocytosis type: unspecified Qualified Code(s): D72.829 - Elevated white blood cell count, unspecified Subjective Subjective Interval history since last seen: Patient had some more confusion this morning. Patient was found getting up out of bed wandering around the room. Patient states she was trying to get to the bathroom. Superficially she seems oriented at least to the year and the month as well as being in [place] although she was unsure as to whether or not she was in a custodial or hospital. I reviewed her medications with the pharmacist and we have put on hold her gabapentin and her methadone and discontinued her mirtazapine and her scopolamine. As far as appetite this is improved greatly with the addition of Megace and I watched her eat lunch and she down to a egg salad sandwich and no time. Patient to follow-up chest x-ray today again shows severe chronic fibrotic changes with no definitive acute consolidation although they said small areas of acute consolidation could be difficult to appreciate and recommended CT of the chest if clinically indicated. I really see no clinical difference between her admission chest x-ray and her current one. While throughout her hospital stay we felt her intermittent periods of confusion are metabolic in nature I did order a CT scan of her head which came back negative for acute intracranial process. Exam Narrative Exam Narrative: Thin kyphotic cachectic appearing female sitting up in her chair eating her lunch. Lungs with coarse bilateral cellophane type rales and expiratory wheezes Heart is regular rate and rhythm Abdomen is scaphoid soft and nontender Legs without edema Objective Objective Clinical Data: Abnormal lab results 02/05/20 02/05/20 Range/Units 06:50 06:50 WBC 22.10 H (4.4-10.8) 10^3/uL MCH 26.0 L (27.0-33.0) pg MCHC 30.4 L (32.0-36.0) % RDW 15.6 H (11.7-14.6) % Absolute Neutrophils 18.03 H (1.2-6.7) 10^3/uL Absolute Monocytes 1.35 H (0.1-0.8) 10^3/uL Creatinine 0.48 L (0.55-1.02) mg/dL C-Reactive Protein 0.87 H (0.0-0.3) mg/dL Vital Signs Temperature 37.2 C 02/05/20 11:07 Temperature Source Tympanic 02/05/20 11:07 Pulse 99 H 02/05/20 11:07 Pulse Rhythm Regular 02/05/20 10:59 Pulse 100 H 01/28/20 21:01 Respiratory Rate 16 02/05/20 11:07 Respiratory Effort Incrsd Work of Breathing 02/05/20 10:59 Respiratory Depth Shallow 02/05/20 10:59 Respiratory Pattern Normal 02/05/20 10:59 Blood Pressure 110/73 02/05/20 11:07 Blood Pressure Mean 81 01/28/20 21:00 Blood Pressure Position Supine 01/28/20 13:43 Pulse Oximetry 95 02/05/20 11:07 Oxygen Delivery Method Room Air 02/05/20 11:07 Oxygen Flow Rate 0 02/05/20 11:07 Pain Level 8 02/05/20 11:07 Comment 02/04/20 16:14 Intake & Output 02/04/20 02/04/20 02/05/20 11:59 23:59 11:59 Intake Total 1320 / 3880 2560 / 3880 580 / 580 Output Total 1300 / 3150 1650 / 3150 1675 / 1675 Balance 20 / 730 910 / 730 -1095 / -1095 Intake: IV 600 / 2200 1600 / 2200 100 / 100 Oral 720 / 1680 960 / 1680 480 / 480 Output: Urine 1300 / 3150 1650 / 3150 1675 / 1675 Other: Urine Color Yellow Yellow Yellow Urine Appearance Clear Clear Clear Urine Odor None Normal Normal Voiding Methods Bedside Commode Bedside Commode Bedside Commode Laboratory Results WBC 22.10 10^3/uL (4.4-10.8) H 02/05/20 06:50 RBC 4.70 10^6/uL (3.93-5.22) 02/05/20 06:50 Hgb 12.2 g/dL (11.2-15.7) 02/05/20 06:50 Hct 40.1 % (36.0-46.0) 02/05/20 06:50 MCV 85.3 fL (80-95) 02/05/20 06:50 MCH 26.0 pg (27.0-33.0) L 02/05/20 06:50 MCHC 30.4 % (32.0-36.0) L 02/05/20 06:50 RDW 15.6 % (11.7-14.6) H 02/05/20 06:50 Plt Count 234 10^3/uL (130-400) 02/05/20 06:50 MPV 9.7 fL (8.0-11.0) 02/05/20 06:50 Immature Gran % 0.8 02/05/20 06:50 Neutrophils % 81.6 02/05/20 06:50 Band Neutrophils % Cancelled 02/04/20 07:18 Lymphocytes % 11.0 02/05/20 06:50 Atypical Lymphs % Cancelled 02/04/20 07:18 Monocytes % 6.1 02/05/20 06:50 Eosinophils % 0.5 02/05/20 06:50 Basophils % 0.0 02/05/20 06:50 Metamyelocytes % Cancelled 02/04/20 07:18 Myelocytes % Cancelled 02/04/20 07:18 Promyelocytes % Cancelled 02/04/20 07:18 Other Cells % Cancelled 02/04/20 07:18 Nucleated RBC % 0 % 02/05/20 06:50 Absolute Neutrophils 18.03 10^3/uL (1.2-6.7) H 02/05/20 06:50 Absolute Lymphocytes 2.43 10^3/uL (1.2-3.4) 02/05/20 06:50 Absolute Monocytes 1.35 10^3/uL (0.1-0.8) H 02/05/20 06:50 Absolute Eosinophils 0.11 10^3/uL (0.0-0.7) 02/05/20 06:50 Absolute Basophils 0.00 10^3/uL (0.0-0.2) 02/05/20 06:50 RBC Morphology Cancelled 02/04/20 07:18 Polychromasia Cancelled 02/04/20 07:18 Hypochromasia Cancelled 02/04/20 07:18 Poikilocytosis Cancelled 02/04/20 07:18 Basophilic Stippling Cancelled 02/04/20 07:18 Anisocytosis Cancelled 02/04/20 07:18 Microcytosis Cancelled 02/04/20 07:18 Macrocytosis Cancelled 02/04/20 07:18 Spherocytes Cancelled 02/04/20 07:18 Tear Drop Cells Cancelled 02/04/20 07:18 Ovalocytes Cancelled 02/04/20 07:18 Stomatocytes Cancelled 02/04/20 07:18 [place] Bodies Cancelled 02/04/20 07:18 [place] Cells/Echinocytes Cancelled 02/04/20 07:18 Acanthocytes (Spur) Cancelled 02/04/20 07:18 Schistocytes Cancelled 02/04/20 07:18 ESR 25 mm/hr (0-30) 02/04/20 08:30 VBG pH 7.48 (7.31-7.41) H 01/28/20 14:10 VBG pCO2 48 mmHg (41-51) 01/28/20 14:10 VBG pO2 44 mmHg 01/28/20 14:10 VBG HCO3 36 mmol/L (23-28) H 01/28/20 14:10 VBG Total CO2 31 mmol/L (24-29) H 01/28/20 14:10 VBG O2 Saturation 83 % 01/28/20 14:10 VBG Base Excess 12 mmol/L (-2-3) H 01/28/20 14:10 Sodium 137 mmol/L (136-145) 02/05/20 06:50 Potassium 4.1 mmol/L (3.5-5.1) 02/05/20 06:50 Chloride 102 mmol/L (98-107) 02/05/20 06:50 Carbon Dioxide 28.2 mmol/L (21.0-32.0) 02/05/20 06:50 Anion Gap 6.8 mmol/L (3-11) 02/05/20 06:50 BUN 12 mg/dL (7-18) D 02/05/20 06:50 Creatinine 0.48 mg/dL (0.55-1.02) L 02/05/20 06:50 Estimated GFR/1.73 m2 >= 60.00 (mL/min/1.73m2) 02/05/20 06:50 Glucose 91 mg/dL (74-106) 02/05/20 06:50 Lactate 1.1 mmol/L (0.6-1.4) 01/28/20 14:10 Calcium 8.6 mg/dL (8.5-10.1) 02/05/20 06:50 Magnesium 1.8 mg/dL (1.8-2.4) 01/31/20 06:12 Total Bilirubin 0.3 mg/dL (0.2-1.0) 01/31/20 06:12 AST 26 U/L (15-37) 01/31/20 06:12 ALT 22 U/L (14-59) 01/31/20 06:12 Alkaline Phosphatase 83 U/L (46-116) 01/31/20 06:12 Ammonia 28 umol/L (11-32) 01/31/20 11:31 Troponin I < 0.05 ng/mL (<0.06) 01/28/20 17:25 C-Reactive Protein 0.87 mg/dL (0.0-0.3) H 02/05/20 06:50 NT-Pro-B Natriuret Pep 211 pg/mL (<300) 01/28/20 14:10 Total Protein 6.1 g/dL (6.4-8.2) L 01/31/20 06:12 Albumin 2.6 g/dL (3.4-5.0) L 01/31/20 06:12 Vitamin B12 805 pg/mL (193-986) 02/04/20 08:30 Folate 16.5 ng/mL (8.6-20.0) 02/04/20 08:30 Procalcitonin < 0.1 ng/mL 02/04/20 08:30 Urine Color Yellow (Yellow) 02/03/20 17:30 Urine Clarity Clear (Clear) 02/03/20 17:30 Urine pH 8.5 (5-8) H 02/03/20 17:30 Ur Specific [place] 1.020 (1.005-1.025) 02/03/20 17:30 Urine Protein Negative mg/dL (Negative) 02/03/20 17:30 Urine Ketones Negative mg/dL (Negative) 02/03/20 17:30 Urine Blood Negative (Negative) 02/03/20 17:30 Urine Nitrite Negative (Negative) 02/03/20 17:30 Urine Bilirubin Negative (Negative) 02/03/20 17:30 Urine Urobilinogen 0.2 EU/dL (Up TO 0.2) 02/03/20 17:30 Ur Leukocyte Esterase Small (Negative) H 02/03/20 17:30 Urine RBC 0-2 HPF (0-2) 02/03/20 17:30 Urine WBC 10-20 HPF (0-5) H 02/03/20 17:30 Ur Epithelial Cells Few HPF (Negative) 02/03/20 17:30 Urine Crystals Negative HPF (Negative) 02/03/20 17:30 Urine Bacteria Negative HPF (Negative) 02/03/20 17:30 Urine Mucus Negative (Negative) 02/03/20 17:30 Ur Culture Indicated? C&s done as ordered 02/03/20 17:30 Urine Glucose Negative mg/dL (Negative) 02/03/20 17:30 Vancomycin Trough 18.7 ug/mL (10.0-20.0) 02/04/20 11:30 COVID-19 PCR Negative (Negative) 01/28/20 21:20 Nasopharyn COVID-19 PCR Not Applicable 01/28/20 21:20 Ref Test Perform Site [place] [facility] lab 01/28/20 21:20
--- NOTE | 2020-02-05 12:49 | PDOC.CMPRO ---
- If Service Date Differs Date of service: 02/05/20 Time of Service: 12:49 Care Management Progress Note S/O: Kira was sitting up in a chair when CM met with her. She was pleasant but seemed a bit confused about things like how to turn the TV on/off and the time of day. When asked how she was feeling, Kira just shook her head no. CM assisted Kira with completion of the LTM application and faxed it to [facility]. A: Kira is a 64 year old female admitted to [facility] on 01/30/20 for COPD, Pneumonia P: Anticipate Kira may return home with a resumption of services once medically cleared, though she continues to be weak at this time. She will need a last dose letter for DEANNA. She will follow up with her PCP and discharge plan of care. LTM application faxed to [facility] today by CM. CM will continue to follow and support discharge planning considerations.
--- NOTE | 2020-02-05 13:19 | NUR.NOTE ---
Nursing Note: Patient increasingly confused , speech is unclear and does not make sense. All sedating medications being held, will monitor and support
[2020-02-05 13:28] LABS: Vancomycin, Trough 16.7 ug/mL (10.0-20.0)
--- NOTE | 2020-02-05 15:15 | PT.INTREAT ---
Date of service: 02/05/20 Time of Service: 15:15 PT Notes Visit Reasons: COPD, PNEUMONIA Inpatient Physical Therapy Treatment [facility] Date: 02/05/2020 SUBJECTIVE: Kira is much more confused today which nurses Saul and Ferny as well as Mary Nelson and Kalie corroborate with. In today's session she was talking about how she told her boyfriend that she does not have time for him as she is trying to fix her own issues. When asked how she was able to reach out to him, she states that she wrote him a letter. She complained about being hungry and wanting to rest when she was seen in the afternoon. She feels that people want to get rid of her and kick her out of the hospital as soon as possible and that she is sick of it. She also complained about her back hurting all day. She refused doing anything in the afternoon with this PT. OBJECTIVE: Bilateral TEDS on. Dyspneic even at rest. Was saturating well in the morning at 91% on RA after ambulation. BED MOBILITY/TRANSFERS Sit-stand: SBA Stand-sit: SBA GAIT Assistive Device: FWW Weight bearing:FWB Assist: CGA Distance: 40' Vital Signs: 90-91% on RA but with moderate breathlessness that required at least about 5 minutes to subside. THEREX: Refused due to fatigue ASSESSMENT: Kira continues to demonstrate decreased activity tolerance and increasing confusion which both limit level of participation in PT. She will be decreased down to 1x/day to facilitate gradual increase in activity participation while allowing adequate rest in between visits. DISCHARGE RECOMMENDATION: Patient will benefit from long-term facility placement for continued skilled physical therapy services in order to progress mobility level, strength, and balance. Consider potential LTC placement. PLAN: Will continue to progress her strength, endurance, and functional mobility as tolerated. TREATMENT CODE/TIME: 83537 x 24 minutes beginning at 11:10 AM. Refused pm session due to fatigue.
--- NOTE | 2020-02-05 16:42 | NUR.NOTE ---
Nursing Note: Patient's mentation has continued to wane towards further confusion, she has pulled 1 Iv out and has disconnected another to have it dripping on the bed, reported to [facility] that patient should be considered for a sitter
[2020-02-05] MEDS: Naloxone 0.4 MG/ML VIAL 0.2 MG SC (19:52)
[2020-02-05] MEDS: Acetaminophen 325 MG TAB 650 MG PO (19:53)
[2020-02-05] MEDS: Methadone Liquid 10 MG/ML 20 MG PO (20:47)
[2020-02-05] MEDS: LIDOCAINE Patch Removal 2 EACH TP (21:43)
[2020-02-06] VITALS (12 sets, daily range): BP systolic 107–137; BP diastolic 68–81; PULSE 83–89; RESP 2–24; TEMP 36.7–37.1; O2SAT 92–100
[2020-02-06] MEDS: PIPERACILLIN/TAZO 4.5 GM in Normal Saline 100 ML IVPB ×3 (03:28→19:39)
[2020-02-06] MEDS: VANCOMYCIN 750 MG in Normal Saline 250 ML 167 MG IVPB (05:30)
[2020-02-06] MEDS: Albuterol/Ipratropium 3 ML UPD VIAL UPD ×4 (05:30→23:04)
[2020-02-06] MEDS: Normal Saline Flush 10 ML SYR IVP ×4 (05:31→18:46)
[2020-02-06 07:45] LABS: LDH 233 U/L (81-234)
[2020-02-06] MEDS: Polyethylene Glycol 3350 17 GM PACKET PO (08:15)
[2020-02-06] MEDS: Lisinopril 10 MG TAB PO (08:15)
[2020-02-06] MEDS: Acetaminophen 325 MG TAB 650 MG PO (08:16)
[2020-02-06] MEDS: Spironolactone 25 MG TAB 50 MG PO ×2 (08:16→19:39)
[2020-02-06] MEDS: buPROPion-XL 150 MG TABCR 300 MG PO (08:16)
[2020-02-06] MEDS: Magnesium Oxide 400 MG TAB PO ×2 (08:16→19:39)
[2020-02-06] MEDS: Ibuprofen 400 MG TAB PO (08:16)
[2020-02-06] MEDS: Omeprazole 20 MG CAPCR 40 MG PO (08:16)
[2020-02-06] MEDS: Aspirin E.C. 81 MG TABEC PO (08:16)
[2020-02-06] MEDS: predniSONE 10 MG TAB PO (08:17)
[2020-02-06] MEDS: dilTIAZem 60 MG TAB PO ×3 (08:17→19:39)
[2020-02-06] MEDS: Senna TAB 1 TAB PO ×2 (08:17→19:39)
[2020-02-06] MEDS: Nicotine 14 MG/24 HR PATCH TD (08:17)
[2020-02-06] MEDS: Lidocaine 5% Patch 2 PATCH TP (09:32)
[2020-02-06] MEDS: Methadone Liquid 10 MG/ML 30 MG PO (11:27)
--- NOTE | 2020-02-06 11:33 | PGE_ITS ---
Date of Service Date of service: 02/06/20 Time of Service: 11:33 Assessment and Plan Assessment and plan (1) Pneumonia: Status: Acute Assessment and plan: As noted above of calculated she has had 9 days of antibiotics including today's dose of Zosyn. Since patient has no evidence for MRSA infection I discontinued her vancomycin. She will finish out the Zosyn today for completion treatment of her aspiration pneumonia but I do not think she will need further antibiotics at this time since she is afebrile and her x- rays are not showing any definitive consolidation. Her leukocytosis appears to be a chronic condition for which she should have follow-up upon discharge with a human resources services specialist. She reports to me that her previous doctor, Dr. Cheatham had her go through a bone marrow biopsy back in the and they never found anything. Qualifiers: Pneumonia type: aspiration pneumonia Aspiration pneumonia type: unspecified Laterality: right Lung location: lower lobe of lung Qualified Code(s): J69.0 - Pneumonitis due to inhalation of food and vomit (2) Altered mental state: Status: Resolved Assessment and plan: Altered mental status appears to be related to her medications. Tried to discontinue as many medications that can potentially cause hallucinations and confusion however because she is chronically on methadone she cannot be abruptly discontinued from this. However her dose has been decreased in half. I have also reduced her gabapentin to a small dose at bedtime and stopped her mirtazapine and her scopolamine patch. Qualifiers: Altered mental status type: somnolence Qualified Code(s): R40.0 - Somnolence (3) Spinal stenosis: Status: Chronic Assessment and plan: Resumption of methadone at a reduced dose of 30 mg daily. Qualifiers: Spinal region: lumbar Neurogenic claudication status: unspecified Qualified Code(s): M48.061 - Spinal stenosis, lumbar region without neurogenic claudication (4) Palliative care patient: Status: Acute Assessment and plan: Appreciate palliative care input She is now a DNR/DNI. C.O.L.S.T. form was completed by palliative care nurse with the patient (5) Cachexia associated with pulmonary fibrosis: Status: Acute Assessment and plan: Continue protein nutritional supplements between meals. Megace added to stimulate her appetite which seems to be working (6) Failure to thrive in adult: Status: Acute Assessment and plan: Megace has been added to her regimen and she seems to be improving on her p.o. intake and taking protein supplemental shakes. Encourage intake (7) Leukocytosis, unspecified: Status: Chronic Assessment and plan: Patient indicates to me that she had a bone marrow biopsy long time ago at the direction of Dr. Cheatham her former PCP. She indicated willingness to see a human resources services specialist upon discharge. Qualifiers: Leukocytosis type: unspecified Qualified Code(s): D72.829 - Elevated white blood cell count, unspecified Subjective Subjective Interval history since last seen: Last night patient inadvertently got naloxone and required dosing of her methadone last night. I spoke with case management regarding her methadone treatment. clinical pharmacy manager indicated that the patient's provider at [facility] was concerned about the patient being de-escalated on her methadone so quickly since she has been on this long-term. Her provider raised some concerns of some of her delirium may be secondary to withdrawal from the methadone. I would resume her methadone but at a reduced dose of 30 mg daily and decrease her gabapentin down to 300 mg at night. We will keep her off of her Remeron and her scopolamine. With respect to her pneumonia her chest x-ray really has not changed. She has severe COPD with diffuse pulmonary fibrosis. In spite of this she has had minimal oxygen requirements. She has been on 1 to 2 L nasal cannula and she is saturating at 100% With respect to her leukocytosis this is been a persistent problem for over 2 years. I did not repeat her CBC today. She remains afebrile. With respect to her chest imaging her repeat chest x-ray from yesterday showed severe chronic fibrotic changes with no definitive acute consolidation. Radiologist did indicate that small areas of acute consolidation could be difficult to appreciate and that a chest CT should be considered if clinically indicated. Yesterday the patient declined to have another chest CT although she did allow a CT of her head which I did because of the intermittent confusion. CT of her head showed no acute intracranial process. With respect to the patient's antibiotics she was placed on Rocephin and doxycycline on admission and received Rocephin January 28 through January 30 subsequently switched to cefepime and vancomycin January 31 and received cefepime through February 02 and then from February 02 to the present has been receiving Zosyn and vancomycin. Patient is not coughing up any purulent sputum and not having increased oxygen requirements and her repeat chest x-ray from yesterday is not showing a definitive consolidation but rather shows chronic diffuse bilateral pulmonary fibrotic changes. I think at this point the patient has had more than adequate antibiotic coverage having received antibiotics for the past 9 days. At this point I will discontinue her antibiotics. I would keep her on acute inpatient status since we are making sudden changes in her analgesics and monitor her mental status overnight. Case management has concerns with discharging her home and would like to place her in swing bed status which we will accomplish tomorrow morning. Patient will continue to receive physical therapy and I will add occupational therapy to evaluate the safety of her performing ADLs at home. Apparently she lives in apartment and may have some issues with getting up into her apartment. Exam Narrative Exam Narrative: Kyphotic elderly female sitting up in her chair eating her breakfast. She seems to be alert and is oriented at least to place and circumstances. Lungs with diffuse fine cellophane rales no rhonchi Heart is regular rate and rhythm Abdomen soft nontender Extremities without peripheral cyanosis or edema Objective Objective Clinical Data: Vital Signs Temperature 36.8 C 02/06/20 11:16 Temperature Source Tympanic 02/06/20 11:16 Pulse 83 02/06/20 11:16 Pulse Rhythm Regular 02/06/20 07:15 Pulse 100 H 01/28/20 21:01 Respiratory Rate 16 02/06/20 11:16 Respiratory Effort Non-Labored 02/06/20 07:15 Respiratory Depth Normal 02/06/20 07:15 Respiratory Pattern Normal 02/06/20 07:15 Blood Pressure 107/71 02/06/20 11:16 Blood Pressure Mean 81 01/28/20 21:00 Blood Pressure Position Supine 01/28/20 13:43 Pulse Oximetry 100 02/06/20 11:16 Oxygen Delivery Method Nasal Cannula 02/06/20 11:24 Oxygen Flow Rate 2 02/06/20 11:16 Pain Level 7 02/06/20 11:27 Comment 02/04/20 16:14 Intake & Output 02/05/20 02/05/20 02/06/20 11:59 23:59 11:59 Intake Total 930 / 2110 1180 / 2110 880 / 880 Output Total 1675 / 2625 950 / 2625 1800 / 1800 Balance -745 / -515 230 / -515 -920 / -920 Intake: IV 450 / 1150 700 / 1150 640 / 640 Oral 480 / 960 480 / 960 240 / 240 Output: Urine 1675 / 2625 950 / 2625 1800 / 1800 Other: Urine Color Yellow Yellow Yellow Urine Appearance Clear Clear Clear Urine Odor Normal Normal Normal Comment after second urgent void of less than 50 Void x1 in the bedside commo de. Voiding Methods Bedside Commode Bedside Commode Bedside Commode Laboratory Results WBC 22.10 10^3/uL (4.4-10.8) H 02/05/20 06:50 RBC 4.70 10^6/uL (3.93-5.22) 02/05/20 06:50 Hgb 12.2 g/dL (11.2-15.7) 02/05/20 06:50 Hct 40.1 % (36.0-46.0) 02/05/20 06:50 MCV 85.3 fL (80-95) 02/05/20 06:50 MCH 26.0 pg (27.0-33.0) L 02/05/20 06:50 MCHC 30.4 % (32.0-36.0) L 02/05/20 06:50 RDW 15.6 % (11.7-14.6) H 02/05/20 06:50 Plt Count 234 10^3/uL (130-400) 02/05/20 06:50 MPV 9.7 fL (8.0-11.0) 02/05/20 06:50 Immature Gran % 0.8 02/05/20 06:50 Neutrophils % 81.6 02/05/20 06:50 Band Neutrophils % Cancelled 02/04/20 07:18 Lymphocytes % 11.0 02/05/20 06:50 Atypical Lymphs % Cancelled 02/04/20 07:18 Monocytes % 6.1 02/05/20 06:50 Eosinophils % 0.5 02/05/20 06:50 Basophils % 0.0 02/05/20 06:50 Metamyelocytes % Cancelled 02/04/20 07:18 Myelocytes % Cancelled 02/04/20 07:18 Promyelocytes % Cancelled 02/04/20 07:18 Other Cells % Cancelled 02/04/20 07:18 Nucleated RBC % 0 % 02/05/20 06:50 Absolute Neutrophils 18.03 10^3/uL (1.2-6.7) H 02/05/20 06:50 Absolute Lymphocytes 2.43 10^3/uL (1.2-3.4) 02/05/20 06:50 Absolute Monocytes 1.35 10^3/uL (0.1-0.8) H 02/05/20 06:50 Absolute Eosinophils 0.11 10^3/uL (0.0-0.7) 02/05/20 06:50 Absolute Basophils 0.00 10^3/uL (0.0-0.2) 02/05/20 06:50 RBC Morphology Cancelled 02/04/20 07:18 Polychromasia Cancelled 02/04/20 07:18 Hypochromasia Cancelled 02/04/20 07:18 Poikilocytosis Cancelled 02/04/20 07:18 Basophilic Stippling Cancelled 02/04/20 07:18 Anisocytosis Cancelled 02/04/20 07:18 Microcytosis Cancelled 02/04/20 07:18 Macrocytosis Cancelled 02/04/20 07:18 Spherocytes Cancelled 02/04/20 07:18 Tear Drop Cells Cancelled 02/04/20 07:18 Ovalocytes Cancelled 02/04/20 07:18 Stomatocytes Cancelled 02/04/20 07:18 Ortega-Hewlett Neck Bodies Cancelled 02/04/20 07:18 Napanoch Cells/Echinocytes Cancelled 02/04/20 07:18 Acanthocytes (Spur) Cancelled 02/04/20 07:18 Schistocytes Cancelled 02/04/20 07:18 ESR 25 mm/hr (0-30) 02/04/20 08:30 VBG pH 7.48 (7.31-7.41) H 01/28/20 14:10 VBG pCO2 48 mmHg (41-51) 01/28/20 14:10 VBG pO2 44 mmHg 01/28/20 14:10 VBG HCO3 36 mmol/L (23-28) H 01/28/20 14:10 VBG Total CO2 31 mmol/L (24-29) H 01/28/20 14:10 VBG O2 Saturation 83 % 01/28/20 14:10 VBG Base Excess 12 mmol/L (-2-3) H 01/28/20 14:10 Sodium 137 mmol/L (136-145) 02/05/20 06:50 Potassium 4.1 mmol/L (3.5-5.1) 02/05/20 06:50 Chloride 102 mmol/L (98-107) 02/05/20 06:50 Carbon Dioxide 28.2 mmol/L (21.0-32.0) 02/05/20 06:50 Anion Gap 6.8 mmol/L (3-11) 02/05/20 06:50 BUN 12 mg/dL (7-18) D 02/05/20 06:50 Creatinine 0.48 mg/dL (0.55-1.02) L 02/05/20 06:50 Estimated GFR/1.73 m2 >= 60.00 (mL/min/1.73m2) 02/05/20 06:50 Glucose 91 mg/dL (74-106) 02/05/20 06:50 Lactate 1.1 mmol/L (0.6-1.4) 01/28/20 14:10 Calcium 8.6 mg/dL (8.5-10.1) 02/05/20 06:50 Magnesium 1.8 mg/dL (1.8-2.4) 01/31/20 06:12 Total Bilirubin 0.3 mg/dL (0.2-1.0) 01/31/20 06:12 AST 26 U/L (15-37) 01/31/20 06:12 ALT 22 U/L (14-59) 01/31/20 06:12 Alkaline Phosphatase 83 U/L (46-116) 01/31/20 06:12 Ammonia 28 umol/L (11-32) 01/31/20 11:31 Lactate Dehydrogenase 233 U/L (81-234) 02/06/20 06:18 Troponin I < 0.05 ng/mL (<0.06) 01/28/20 17:25 C-Reactive Protein 0.87 mg/dL (0.0-0.3) H 02/05/20 06:50 NT-Pro-B Natriuret Pep 211 pg/mL (<300) 01/28/20 14:10 Total Protein 6.1 g/dL (6.4-8.2) L 01/31/20 06:12 Albumin 2.6 g/dL (3.4-5.0) L 01/31/20 06:12 Vitamin B12 805 pg/mL (193-986) 02/04/20 08:30 Folate 16.5 ng/mL (8.6-20.0) 02/04/20 08:30 Procalcitonin < 0.1 ng/mL 02/04/20 08:30 Urine Color Yellow (Yellow) 02/03/20 17:30 Urine Clarity Clear (Clear) 02/03/20 17:30 Urine pH 8.5 (5-8) H 02/03/20 17:30 Ur Specific Vale 1.020 (1.005-1.025) 02/03/20 17:30 Urine Protein Negative mg/dL (Negative) 02/03/20 17:30 Urine Ketones Negative mg/dL (Negative) 02/03/20 17:30 Urine Blood Negative (Negative) 02/03/20 17:30 Urine Nitrite Negative (Negative) 02/03/20 17:30 Urine Bilirubin Negative (Negative) 02/03/20 17:30 Urine Urobilinogen 0.2 EU/dL (Up TO 0.2) 02/03/20 17:30 Ur Leukocyte Esterase Small (Negative) H 02/03/20 17:30 Urine RBC 0-2 HPF (0-2) 02/03/20 17:30 Urine WBC 10-20 HPF (0-5) H 02/03/20 17:30 Ur Epithelial Cells Few HPF (Negative) 02/03/20 17:30 Urine Crystals Negative HPF (Negative) 02/03/20 17:30 Urine Bacteria Negative HPF (Negative) 02/03/20 17:30 Urine Mucus Negative (Negative) 02/03/20 17:30 Ur Culture Indicated? C&s done as ordered 02/03/20 17:30 Urine Glucose Negative mg/dL (Negative) 02/03/20 17:30 Vancomycin Trough 16.7 ug/mL (10.0-20.0) 02/05/20 13:00 COVID-19 PCR Negative (Negative) 01/28/20 21:20 Nasopharyn COVID-19 PCR Not Applicable 01/28/20 21:20 Ref Test Perform Site [employer] [facility] 01/28/20 21:20
--- NOTE | 2020-02-06 11:36 | PTTR_ITS ---
Date of service: 02/06/20 Time of Service: 11:36 PT Notes Visit Reasons: COPD, PNEUMONIA Inpatient Physical Therapy Treatment [facility] Date: 02/06/2020 SUBJECTIVE: Kira was hoping that this PT could drive her home, get her cigarettes, and drive her back to the hospital today. She states that she has not smoked since she has been here and hopes that this provider can make it possible for her to get a puff. She continues to report being tired but is agreeable to trying the stairs if she is wheeled into the PT room for it. OBJECTIVE: Bilateral TEDS on. Dyspneic even at rest. On 2 L of oxygen supplementation via NC. BED MOBILITY/TRANSFERS Sit-stand: Contact-guard assist Stand-sit: Contact-guard assist GAIT Assistive Device: FWW Weight bearing:FWB Assist: CGA Distance: 10 feet +25 feet Vital Signs: Minimal to moderate breathlessness that subsided with rest STAIRS: Tolerated up-and-down sit 4 inch steps while holding onto bilateral rails requiring minimal assist with moderate breathlessness seen after activity. THERA EX: Refused due to fatigue ASSESSMENT: Kira continues to demonstrate decreased activity tolerance and confusion which limit level of participation in PT. She will be decreased down to 1x/day to facilitate gradual increase in activity participation while allowing adequate rest in between visits. DISCHARGE RECOMMENDATION: Patient will benefit from senior living facility placement for continued skilled physical therapy services in order to progress mobility level, strength, and balance. Consider potential LTC placement. PLAN: Will continue to progress her strength, endurance, and functional mobility as tolerated. TREATMENT CODE/TIME: 59517 x 34 minutes beginning at 11:36 AM.
--- NOTE | 2020-02-06 16:24 | CMPROGNOTE_ITS ---
- If Service Date Differs Date of service: 02/06/20 Time of Service: 16:24 Care Management Progress Note S/O: Kira was sitting up in her chair when CM met with her. She reported that she is doing 'so-so' today. CM asked how she was doing with PT, and Kira responded stating that they haven't started yet, but she has asked for them to work with her. Per PT, she has refused working with them this afternoon, but they did work with her this morning, as they have been. They reduced her visits to 1x/day due to her lack of participation. Per report, she has been increasingly confused the past few days. CM will continue to follow. A: Kira is a 64 year old female admitted to [facility] on 01/30/20 for COPD, Pneumonia P: Anticipate Kira may return home with a resumption of services once medically cleared, though she continues to be weak at this time. She will need a last dose letter for [facility]. She will follow up with her PCP and discharge plan of care. LTM application faxed to [facility] today by CM. CM will continue to follow and support discharge planning considerations.
[2020-02-06] MEDS: Budesonide 0.25 MG/2 ML UPD VIAL UPD (19:39)
[2020-02-06] MEDS: Gabapentin 300 MG CAP PO (21:23)
[2020-02-06] MEDS: LIDOCAINE Patch Removal 2 EACH TP (21:23)
[2020-02-07] MEDS: Albuterol/Ipratropium 3 ML UPD VIAL UPD ×2 (05:44→11:10)
[2020-02-07] MEDS: Ibuprofen 400 MG TAB PO (06:26)
[2020-02-07] MEDS: Omeprazole 20 MG CAPCR 40 MG PO (06:26)
--- NOTE | 2020-02-07 08:08 | OTIE_ITS ---
Occupational Therapy Notes Inpatient Occupational Therapy Evaluation Date: 02/07/20 Referring Doctor:Jelani Lopez MD OT Orders: Non-Urgent, Extended Stay- weakness Precautions: Fall, standard, DNR/DNI PATIENT PROFILE/ADMITTING DIAGNOSIS: Pt is a 64 year old female who presented to the ER with shortness of breath. She was admitted for d/x of cachexia, COPD exacerbation and pneumomediastinum. Past Medical History- Abnormal CT of the chest (Acute 03/18/17) stable 2mm nodule in AILYN Annual Chest CT for lung cancer screening recommended Acute renal failure (Resolved 04/29/14) a. creatinine bumped from 0.8 to 2.9 b. h/o renal failure 06/2013, presented with creatinine 5.4, which normalized with IV fluids Acute right-sided low back pain without sciatica (Acute 06/08/17) Pain rad thru buttock, but not down leg. Priformis Syndr? [ ] PT [ ] Hx Pain Clinic (Injctn #1 helped, #2 did not). Occasional relief from SOMA. Trial GABAPENTIN 06/09/18.in past Anxiety and depression (Chronic) Bilateral pneumonia (Acute 04/29/14) A. Bilateral lower lobes Biliary colic (Inactive) Cirrhosis Cirrhosis of liver (Chronic) a. History of Hep C treatment. b. Liver biopsy 2005 positive for cirrhosis. 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 AFP levels every six months and ruq US every 12 months COPD (chronic obstructive pulmonary disease) (Chronic) Ongoing tobacco use. COPD (chronic obstructive pulmonary disease) (Chronic) Diabetes (Chronic) On Metformin. Diabetes mellitus DNI (do not intubate) (Acute) Essential hypertension (Chronic) Well maintained, meds tolerated. Hepatitis C HTN (hypertension) Hypertension (Chronic) Methadone dependence (Chronic) Nausea & vomiting (Acute) Neuropathy of right radial nerve (Chronic) a. recently had multiple falls and a hematoma around her humerus b. resolving Pleuritic chest pain (Acute 04/29/14) a. left sided POLST (Physician Orders for Life-Sustaining Treatment) (Acute) Polysubstance abuse (Chronic) a. h/o opiate overdose 06/2013 and 11/2013 b. recently started in [facility] program 03/13/2014 on oral methadone (missed her dose today) Shortness of breath (Acute) Spinal stenosis (Chronic) a. MRI 10/2009, showed L4-5 narrowing Tobacco abuse (Chronic) Tobacco use disorder Varices of esophagus determined by endoscopy (Acute) Social History/Home Situation: Pt lives alone in a trailer in [place] and refers to herself as a . She states that she does not drive and utilizes [facility] for community mobility. She has a walk in shower which she states that she has grab bars, shower bench, raised toilet seat but she also reports that she has not put these together yet. She has meals on wheels for her meals which she likes, she gets a ride to the grocery store and requires (A) with carrying in her bags which she has a neighbor who (A) with this at times. She attends the [employer] program in the mornings and reports that she has [employer], a cell phone and uses a cane at baseline. She states that she does not feel like she is at her baseline level of function but has had HH in the past for PT which she states she only had him come twice because she did not enjoy. Equipment owned/DME: Cane, raised toilet seat, grab bars, shower bench, oxygen 2 liters SUBJECTIVE: Pt states that she is feeling better than she was when she first came. She states that she is scared about her weight and that she feels that she will need some help when she returns home. OBJECTIVE: General Observation: IV (R) UE, pleasant and able to answer questions appropriately Mental Status: A&Ox3 Pain: no c/o pain ROM: RUE AROM WFL L UE AROM WFL STRENGTH: RUE Shoulder flexion 4/5, bicep 3+/5, tricep 4-/5, [place] is symmetrical LUE Shoulder flexion 4/5, bicep 4/5, tricep 4-/5, [place] is symmetrical SENSATION: Intact (B) UE FUNCTIONAL MOBILITY/ADLS: BATHING Performed prior to OT consult with [employer]ESSING Sitting in chair with min vc Dressing LE Pt was able to (I) don and doff (B) socks and shoes by bringing foot to chair with ideal knee bend GROOMING Pt was sitting chair and denies brushing teeth before breakfast TOILETING Pt denies but states that she can utilize the commode or toilet with min (A) BALANCE: Static sitting Good Dynamic Sitting Good SPECIAL TESTS: Daily Activity Limitations Standardized Measure [facility] AM -PAC ?6 clicks? Daily Activity Inpatient Short Form: Raw score: 16 Standardized score: 35.96 CMS score: 53.32% INFORMED CONSENT/EDUCATION: Pt instructed in purpose of OT Consult and plan of care. ASSESSMENT: Patient is a 64-year-old female referred to occupational therapy services with diagnosis of cachexia, COPD exacerbation and pneumomediastinum. Patient presents with clinical signs and symptoms consistent with dx, as demonstrated by the following impairment level findings/ functional limitations: Impairment in ADL/IADL and leisure activities, decreased functional activity tolerance, decreased functional mobility required for ADL/IADL, decreased breathing with functional activities/ADL/IADL routines. AMPAC score 16 Patient is assessed as a Moderate 18142 complexity based on the following: History: See above Examination: see functional limitations as noted above Presentation: evolving Decision Making: AMPAC score 16 GOALS Goals x1 week 1. Transfers with FWW (S) 2. Dressing in seated able to (I) don and doff pants, socks and shirt with good technique 3. Bathing in seated position (I) with UE/LE 4. Toileting on toilet (I) 5. Eating (I) PLAN OF CARE/TREATMENT PLAN: 1x/day, 5 days/ week x 1week Initiate Occupational Therapy Services for bathing, dressing, grooming, toileting, eating, transfer training. DISCHARGE RECOMMENDATIONS Based on pts current level of function OT recommends that pt have a FWW for functional mobility to increase pts stability and safety with her ADL routines and OT feels that pt would benefit from returning home with increased HH services to (A) pt with her ADLs/IADLs vs. LTC. TREATMENT TIME/MINUTES/CODES 71627, 25 minutes (07:35) Thu Mazariegos OTR/L [facility]
[2020-02-07 08:18] VITALS: BP 131/85; PULSE 90; RESP 18; TEMP 36.5; O2SAT 97
[2020-02-07] MEDS: buPROPion-XL 150 MG TABCR 300 MG PO (08:37)
[2020-02-07] MEDS: Magnesium Oxide 400 MG TAB PO (08:37)
[2020-02-07] MEDS: Spironolactone 25 MG TAB 50 MG PO (08:37)
[2020-02-07] MEDS: Aspirin E.C. 81 MG TABEC PO (08:38)
[2020-02-07] MEDS: Lisinopril 10 MG TAB PO (08:38)
[2020-02-07] MEDS: dilTIAZem 60 MG TAB PO (08:38)
[2020-02-07] MEDS: predniSONE 10 MG TAB PO (08:38)
[2020-02-07] MEDS: Senna TAB 1 TAB PO (08:38)
[2020-02-07] MEDS: Nicotine 14 MG/24 HR PATCH TD (08:39)
[2020-02-07] MEDS: Polyethylene Glycol 3350 17 GM PACKET PO (08:39)
[2020-02-07] MEDS: Ondansetron 4 MG/2 ML VIAL IVP (08:39)
[2020-02-07] MEDS: Normal Saline Flush 10 ML SYR IVP (08:40)
[2020-02-07 11:10] VITALS: RESP 2; RESP 4; RESP 7
--- NOTE | 2020-02-07 11:13 | W.NUTRFU ---
Date of service: 02/07/20 Time of Service: 11:14 Nutritional Follow up NOTE: Kira continues to follow regular meal plan, supplemented with ensure plus, now on megace and meeting nutrient and fluid needs by mouth for slow weight regain. Receiving small meals and meal encouragement from staff. Weight stable. Will continue to follow and adjust meal plan as needed for optimal nutrient intake. Time Spent in Nutritional Counseling and Treatment: 10 min spent face to face
[2020-02-07] MEDS: Lidocaine 5% Patch 2 PATCH TP (11:36)
[2020-02-07] MEDS: Methadone Liquid 10 MG/ML 30 MG PO (12:06)
--- NOTE | 2020-02-07 12:06 | DSE_ITS ---
DS: Diagnosis Discharge Diagnosis (1) Bilateral pneumothoraces: Status: Resolved Asessment and Plan: Pneumothoraces and pneumomediastinum resolved spontaneously. Patient did not require chest tube placement. (2) Pneumomediastinum: Status: Resolved (3) Acute exacerbation of chronic obstructive pulmonary disease (COPD): Status: Resolved Asessment and Plan: Patient's prednisone has been tapered down to 10 mg daily and should be tapered off over the next week (4) Pneumonia: Status: Resolved Asessment and Plan: At the time of discharge patient had no fevers and her oxygen requirements were minimal. Follow-up chest x-ray just shows diffuse pulmonary fibrosis. Patient completed 10-day course of antibiotics including Rocephin, cefepime, Zosyn, vancomycin. Patient showing no evidence of infection at this time. (5) Altered mental state: Status: Resolved Asessment and Plan: Patient's mental status has waxed and waned throughout her hospital stay. She is not showing signs of hypercarbia and it was felt that her waning mental status was secondary to medication effect. Her Remeron and her Scopolamine have been discontinued. Her gabapentin has been weaned down to 300 mg nightly and her methadone is been reduced to 30 mg daily. We will continue to monitor her mental status. CT scan of her head was negative for any acute intracranial pathology although she has microvascular changes around the periventricular white matter consistent with small vessel disease. (6) Cachexia associated with pulmonary fibrosis: Status: Chronic Asessment and Plan: Patient has demonstrated a significant weight loss over the past year of 20 kg. Patient is now on Megace to help stimulate her appetite and she seems to be eating fairly well. Her weight should continue to be monitored. Consideration should be given for further outpatient work-up of her weight loss. CT scans of the abdomen pelvis in October were negative and CT scans of the chest were negative except for her pulmonary fibrosis and COPD. She has not had a recent colonoscopy that could also be considered however I think even if she has a colon tumor she would not be a good candidate for any surgery given her severe COPD and pulmonary fibrosis. Because of her persistent leukocytosis referral to hematology is recommended upon discharge. (7) Failure to thrive in adult: Status: Chronic (8) Leukocytosis, unspecified: Status: Chronic Asessment and Plan: Hematology referral recommended upon discharge. (9) Palliative care patient: Status: Chronic Asessment and Plan: Palliative medicine saw her in consultation during this hospital stay. Last note was from February 01, 2020. Loli Estevesx indicated that they would continue to follow the patient and upon discharge should be referred back to palliative care. (10) POLST (Physician Orders for Life-Sustaining Treatment): Status: Chronic Asessment and Plan: Patient is currently a DNR/DNI. If patient does not want further work-up of her chronic weight loss and leukocytosis then consid eration should be given for possible hospice care given the severity of her weight loss and the severity of her COPD and pulmonary fibrosis. (11) Spinal stenosis of lumbar region: Status: Chronic Asessment and Plan: Patient's chronic back pain is being managed with Lidoderm patches along with methadone. Her methadone dose was cut in half because of her severe weight loss and it was felt that the methadone dose of 70 mg a day was contributing to her lethargy. At her current dose of 30 mg along with low-dose gabapentin at night she seems to be alert and oriented during the day.Her pain seems to be reasonably controlled to the point that she is tolerating physical therapy. Discharge Plan Disposition Patient Disposition: [facility] BED LEVEL 1 Condition: Improving Discharge Details Chief Complaint: SOB Clinical Impression: Pneumomediastinum, Bilateral pneumothoraces, Pneumonia, Chronic vomiting Reason For Visit: COPD, PNEUMONIA Admit Date/Time: 01/28/20 20:35 Admit Provider: Scar Bustamante Attending Provider: Scar Bustamante Primary Care Provider: Kirsten Friedman ED Provider: Libra Jarrell Hospital Course Hospital Course: 64-year-old female with history of COPD on home oxygen, and history of chronic back pain requiring methadone, presents emergency department January 28, 2020 with increased shortness of breath of several days duration and nausea and vomiting. CT of her chest at the time of admission demonstrated pneumomediastinum with air tracking along the ascending aorta, aortic arch and descending aorta into the upper abdomen along with a loculated right medial and left medial pneumothoraces and small right upper lobe loculated pneumothorax. There is some questionable bilateral pneumonia. Dr. Crane from general surgery was consulted by the ER Dr. Jarrell who recommended transfer the patient. Dr. Jarrell reviewed the case with [facility] thoracic surgical department and 1 other surgeons reviewed the chest CT and felt that her pneumomediastinum and pneumothoraces was due to a ruptured bleb and not due to a ruptured esophagus. Patient was started on antibiotics and admitted to the hospital. Subsequent evaluation with a barium swallow was performed on January 30, 2020 it was a limited exam but no esophageal perforation was seen. She had mild narrowing and fold thickening at the GE junction. Chest x-ray from January 29 showed questionable infiltrate at the right lung base but no visible pneumothorax however she has severe fibrotic changes. Patient was treated initially for what was felt to be an aspiration pneumonitis with Rocephin and doxycycline but that was changed on February 01, 2020 to cefepime and vancomycin. When she was demonstrating persistent leukocytosis after I assumed her care I switched her to Zosyn 4.5 g IV every 8 hours and continued her Zosyn vancomycin beginning February 03, 2020. Her only fever occurred on February 01, 2020 when she had a temperature of 38.5. She has been afebrile ever since. Vancomycin was discontinued February 06, 2020 and her Zosyn was completed on the same day. Patient's dyspnea is back to her baseline and that she is not dyspneic at rest or with light activities such as dressing herself or washing herself but with any prolonged physical activity she gets dyspneic. Her oxygen saturation has generally been in the mid to high 90s even as much is 100% saturation on 1 or 2 L of oxygen per nasal cannula and at times she is able to come off oxygen while at rest. Patient has been very cachectic and when she presented the hospital she had poor appetite with weight loss. Dr. Bella tried her on Marinol however because of acute confusion that was discontinued. I have since put her on Megace which seems to stimulate her appetite. Her weight today is 32 kg and this appears to be her baseline over the last month however when you look over the last year she has lost 20 kg. Patient has had extensive studies both as an outpatient and an inpatient looking for the cause of her weight loss. She had a CT scan of her abdomen pelvis on October 29, 2019 that showed no acute intra- abdominal or pelvic process and no mass or adenopathy. She does have multilevel degenerative changes in her spine along with scoliosis. Right upper quadrant abdominal ultrasound also performed in October showed cholelithiasis with no acute cholecystitis. She had a CT of her chest on admission that showed a pneumomediastinum and pneumothoraces. During this hospitalization she has had serial chest x-rays. Last 1 was performed February 05, 2020 PA and lateral chest x-ray showed severe chronic fibrotic changes with no definitive acute consolidation. Head CT scan performed January 31 showed no evidence of acute intracranial process she has patchy areas of decreased attenuation in the periventricular white matter consistent with microvascular ischemic changes. At this time the patient is complete her course of antibiotics but still has generalized weakness and decreased ADL performance and requires acute jail treatment with PT and OT consultation for her generalized weakness. Patient lives in a mobile home with several stairs to get into her mobile home at this time requires physical therapy to work with her ambulation. With respect to her pain management and transient periods of confusion both Dr. Bella and myself have been adjusting her medications. I have taken her off of her scopolamine patch and drastically reduced her gabapentin dose down to 300 mg at at bedtime and discontinued her mirtazapine. Her methadone dose has been reduced to 30 mg daily from her previous dose of 70 mg daily. With regard to her leukocytosis I have reviewed her labs and it appears that she has a chronic leukocytosis that dates back for the past year to year and a half with white counts running between 15-25,000. It is my impression that her leukocytosis is not due to infection or steroids but may be due to some myelodysplastic syndrome. I recommend that she follow-up with a bulk sausage casing tier off upon discharge from [facility]. Home Meds and New Rx's Prescriptions: No Action ipratropium-albuterol 0.5 mg-3 mg(2.5 mg base)/3 mL solution for nebulization 3 ml UPD Q6H PRN PRN (Reason: shortness of breath or wheezing) Qty: 90 RF: 3 cholecalciferol (vitamin D3) 2,000 unit capsule 2,000 unit PO DAILY RF: 0 Ensure Original 0.04-1.05 gram-kcal/mL liquid See Rx Instructions PO BID Qty: 237 RF: 3 haloperidol lactate 2 mg/mL concentrate 0.5 mg PO TID MDD 1.5 mg PRN (Reason: nausea and vomiting) Qty: 15 RF: 0 methadone 10 mg/mL concentrate 75 mg PO DAILY RF: 0 (DME) compressor, for nebulizer device See Dose Instructions .ROUTE .MEDSUPPLY Qty: 1 RF: 0 ondansetron 4 mg tablet,disintegrating 4 mg PO Q8H PRN (Reason: nausea and vomiting) Qty: 30 RF: 3 hydroxyzine HCl 50 mg tablet 50 mg PO QID PRN (Reason: itching/anxiety) Qty: 60 RF: 3 omeprazole 20 mg capsule,delayed release(DR/EC) 40 mg PO DAILY Qty: 60 RF: 3 prednisone 20 mg tablet 40 mg PO DAILY Qty: 8 RF: 0 triamcinolone acetonide 15 GM cream 1 lorraine Topical TID PRNQty: 30 RF: 2 lisinopril 10 mg tablet 10 mg PO DAILY Qty: 90 RF: 3 Breo Ellipta 200-25 mcg/dose blister with device 1 inh IH DAILY Qty: 60 RF: 3 mirtazapine 30 mg tablet 30 mg PO HS Qty: 30 RF: 11 bupropion HCl 300 mg tablet extended release 24 hr 300 mg PO DAILY Qty: 90 RF: 3 Hold Instructions: Pt Stopped/Never Started spironolactone 25 mg tablet 50 mg PO BID Qty: 120 RF: 3 scopolamine base 1 mg over 3 days patch 3 day 1 patch TD Q3D Qty: 10 RF: 1 gabapentin 300 mg capsule 300 mg PO TID Qty: 90 RF: 3 aspirin 81 mg Tablet,Delayed Release (Dr/Ec) 81 mg PO DAILY Qty: 30 RF: 0 furosemide 20 mg Tablet 40 mg PO BID RF: 0 nicotine 14 mg/24 hr Patch 24 Hour 14 mg transdermal DAILY Qty: 30 RF: 1 polyethylene glycol 3350 17 gram Powder In Packet 17 g PO DAILY PRN PRN (Reason: Constipation) Qty: 510 RF: 0 docusate sodium [Colace] 100 mg Capsule 100 mg PO TID PRN PRNQty: 30 RF: 0 albuterol sulfate [Ventolin HFA] 90 mcg/actuation HFA aerosol inhaler 2 puff INHALATION BID RF: 0 magnesium chloride [Mag 64] 64 mg tablet,delayed release (DR/EC) 500 mg PO BID RF: 0 Refresh Tears 0.5 % Drops 1 drp ophthalmic (eye) DIRECTED RF: 0 prednisone 20 mg tablet See Rx Instructions .ROUTE .COMPLEX Qty: 12 RF: 0 doxycycline hyclate 100 mg tablet 100 mg PO BID 7 Days Qty: 14 RF: 0 amoxicillin-pot clavulanate [Augmentin] 875-125 mg tablet 1 tab PO BID 10 Days Qty: 20 RF: 0 Discharge Instructions Activity:: Activity as Tolerated Equipment/Supplies:: No Equipment Needed Diet:: Normal Diet Discharge Orders Discharge Orders: Discharge Order (Routine); Ordered 02/07/20 Ordered By: Jelani Lopez DS: Summary Status at Discharge Functional status at discharge: uses cane/walker Overall status at discharge: patient is progressing back to baseline Mental Status: mental status grossly normal Speech and Movement: speech and movement normal Mood: congruent mood Affect: normal affect Exam Narrative Exam Narrative: Kyphotic elderly female sitting up in her chair. She is dressed wearing her own clothes. She is pleasant and conversant. She seems to be alert and is oriented at least to place and circumstances. Lungs with diffuse fine cellophane rales no rhonchi Heart is regular rate and rhythm Abdomen soft nontender Extremities without peripheral cyanosis or edema Psych Mental Status: mental status grossly normal Speech and Movement: speech and movement normal Mood: congruent mood Affect: normal affect DS: Data Vitals/I&O Vitals and I&O: Vital Signs Temperature 36.5 C 02/07/20 08:18 Temperature Source Temporal Artery Scan 02/07/20 08:18 Pulse 90 02/07/20 08:18 Pulse Rhythm Regular 02/07/20 09:00 Pulse 100 H 01/28/20 21:01 Respiratory Rate 18 02/07/20 08:18 Respiratory Effort Non-Labored 02/07/20 09:00 Respiratory Depth Normal 02/07/20 09:00 Respiratory Pattern Normal 02/07/20 09:00 Blood Pressure 131/85 02/07/20 08:18 Blood Pressure Mean 81 01/28/20 21:00 Blood Pressure Position Supine 01/28/20 13:43 Pulse Oximetry 97 02/07/20 08:18 Oxygen Delivery Method Nasal Cannula 02/07/20 11:10 Oxygen Flow Rate 0 02/07/20 08:18 Pain Level 8 02/07/20 08:18 Comment 02/06/20 15:43 Intake & Output 02/06/20 02/07/20 02/07/20 23:59 11:59 23:59 Intake Total 1060 / 2180 340 / 340 Output Total 400 / 2200 2150 / 2150 Balance 660 / -20 -1810 / -1810 Weight 32 kg Intake: IV 100 / 740 100 / 100 Oral 960 / 1440 240 / 240 Output: Urine 400 / 2200 2149 / 2149 Other: Urine Color Yellow Yellow Urine Appearance Clear Clear Urine Odor Normal Normal Comment Void x1 in the toilet. Voiding Methods Toilet Toilet Data Completed and Pending Labs on day of discharge: Preliminary micro results at discharge 02/03/20 17:20 Blood Culture - Preliminary Blood NO GROWTH 72 HOURS 02/03/20 17:10 Blood Culture - Preliminary Blood NO GROWTH 72 HOURS [facility] Medical History Abnormal CT of the chest (Acute 03/18/17) stable 2mm nodule in AILYN Annual Chest CT for lung cancer screening recommended Acute renal failure (Resolved 04/29/14) a. creatinine bumped from 0.8 to 2.9 b. h/o renal failure 06/2013, presented with creatinine 5.4, which normalized with IV fluids Acute right-sided low back pain without sciatica (Acute 06/08/17) Pain rad thru buttock, but not down leg. Priformis Syndr? [ ] PT [ ] Hx Pain Clinic (Injctn #1 helped, #2 did not). Occasional relief from SOMA. Trial GABAPENTIN 06/09/18.in past Anxiety and depression (Chronic) Bilateral pneumonia (Acute 04/29/14) A. Bilateral lower lobes Biliary colic (Inactive) Cirrhosis Cirrhosis of liver (Chronic) a. History of Hep C treatment. b. Liver biopsy 2005 positive for cirrhosis. 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 AFP levels every six months and ruq US every 12 months COPD (chronic obstructive pulmonary disease) (Chronic) Ongoing tobacco use. COPD (chronic obstructive pulmonary disease) (Chronic) Diabetes (Chronic) On Metformin. Diabetes mellitus DNI (do not intubate) (Acute) Essential hypertension (Chronic) Well maintained, meds tolerated. Hepatitis C HTN (hypertension) Hypertension (Chronic) Methadone dependence (Chronic) Nausea & vomiting (Acute) Neuropathy of right radial nerve (Chronic) a. recently had multiple falls and a hematoma around her humerus b. resolving Pleuritic chest pain (Acute 04/29/14) a. left sided POLST (Physician Orders for Life-Sustaining Treatment) (Acute) Polysubstance abuse (Chronic) a. h/o opiate overdose 06/2013 and 11/2013 b. recently started in [facility] program 03/13/2014 on oral methadone (missed her dose today) Shortness of breath (Acute) Spinal stenosis (Chronic) a. MRI 10/2009, showed L4-5 narrowing Tobacco abuse (Chronic) Tobacco use disorder Varices of esophagus determined by endoscopy (Acute) Surgical History Appendectomy (01/30/07) H/O: hysterectomy (Chronic) History of ankle surgery (Acute) left S/P bilateral breast lumpectomy (Acute) Family History Mother Myocardial infarction Stroke Sister Diabetes Myocardial infarction Sister Diabetes Father Diabetes Alcohol abuse Myocardial infarction Social History Smoking/Tobacco Use Status: Current every day Tobacco Type: cigarettes Smoking packs per day: 1 Smoking cigarettes per day: 20.0 Years smoked: 40 Smoking pack- years: 40.00 Quit status: considering quitting Counseling given: other Details: pt feels motivated and states she doesnt enjoy them now Alcohol Intake: never Drug use: Current Sobriety Substance use type: heroin Details: on [facility] clinic Adopted: No Household members: none Housing: house Communication Needs: None Pets and animals: Yes Pets and animals: cat(s) What is your relationship status?: Panel score (0-1 are the most socially isolated patients): 0 What type of physical activity do you participate in: none Seatbelt use: always Drive intox or ride w/intox courier driver: No Working smoke detector in home: Yes Fire extinguisher in home: Yes Carbon monox detector in home: Yes Do you feel safe at home: Yes Do you feel safe in your relationship?: Yes
[2020-02-07 12:40] VITALS: BP 119/81; PULSE 89; RESP 18; TEMP 37.2; O2SAT 99
--- NOTE | 2020-02-07 14:15 | CMPROGNOTE_ITS ---
- If Service Date Differs Date of service: 02/07/20 Time of Service: 14:15 Care Management Progress Note S/O: Kira was sitting up in her chair when CM met her. She had her own clothes on, and was pleasant and engaged in conversation. CM discussed her discharge plan regarding the need for her to have rehab prior to returning home. She will need to work with PT/OT to be able to maneuver the six stairs going into her house, as well as becoming more independent with her ADL's as she lives at home alone. Due to her methadone being prescribed from [facility] for substance use, she will not be accepted at any local facilities for rehab. She agreed to remain at [facility] for her continued rehab. CM discussed the importance of her participation with PT, as she will be working toward goals for discharge. She would like to return home as soon as she can. CM will also follow up with her [facility] ap plication which was recently submitted which may help her to have more services in the home. CM will continue to follow. A: Kira is a 64 year old female admitted to [facility] on 01/30/20 for COPD, Pneum onia. P: Kira will transition to [facility] today for short term rehab with goals to gain strength, maneuver her 6 steps into her home, become more independent with ADL's, and coordinate care in the home. Her [employer] application has been submitted on 02/05/20 by ELIZABETH. 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 She will need a last dose letter for DEANNA. She will follow up with her PCP and discharge plan of care. CM will continue to follow and support discharge planning considerations.
--- NOTE | 2020-02-08 07:35 | OTDS_ITS ---
Date of service: 02/08/20 Time of Service: 07:35 Occupational Therapy Notes Occupational Therapy Inpatient Discharge Summary Date: 02/08/20 Dates of Service: 02/07/20 Referring Doctor:Jelani Lopez MD OT Orders: Non-Urgent, Extended Stay- weakness Precautions: Fall, standard, DNR/DNI PATIENT PROFILE/ADMITTING DIAGNOSIS: Pt is a 64 year old female who presented to the ER with shortness of breath. She was admitted for d/x of cachexia, COPD exacerbation and pneumomediastinum. Past Medical History- Abnormal CT of the chest (Acute 03/18/17) stable 2mm nodule in [facility] Annual Chest CT for lung cancer screening recommended Acute renal failure (Resolved 04/29/14) a. creatinine bumped from 0.8 to 2.9 b. h/o renal failure 06/2013, presented with creatinine 5.4, which normalized with IV fluids Acute right-sided low back pain without sciatica (Acute 06/08/17) Pain rad thru buttock, but not down leg. Priformis Syndr? [ ] PT [ ] Hx Pain Clinic (Injctn #1 helped, #2 did not). Occasional relief from [facility]. Trial GABAPENTIN 06/09/18.in past Anxiety and depression (Chronic) Bilateral pneumonia (Acute 04/29/14) A. Bilateral lower lobes Biliary colic (Inactive) Cirrhosis Cirrhosis of liver (Chronic) a. History of Hep C treatment. b. Liver biopsy 2005 positive for cirrhosis. 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 AFP levels every six months and ruq US every 12 months COPD (chronic obstructive pulmonary disease) (Chronic) Ongoing tobacco use. COPD (chronic obstructive pulmonary disease) (Chronic) Diabetes (Chronic) On Metformin. Diabetes mellitus DNI (do not intubate) (Acute) Essential hypertension (Chronic) Well maintained, meds tolerated. Hepatitis C HTN (hypertension) Hypertension (Chronic) Methadone dependence (Chronic) Nausea & vomiting (Acute) Neuropathy of right radial nerve (Chronic) a. recently had multiple falls and a hematoma around her humerus b. resolving Pleuritic chest pain (Acute 04/29/14) a. left sided POLST (Physician Orders for Life-Sustaining Treatment) (Acute) Polysubstance abuse (Chronic) a. h/o opiate overdose 06/2013 and 11/2013 b. recently started in [facility] program 03/13/2014 on oral methadone (missed her dose today) Shortness of breath (Acute) Spinal stenosis (Chronic) a. MRI 10/2009, showed L4-5 narrowing Tobacco abuse (Chronic) Tobacco use disorder Varices of esophagus determined by endoscopy (Acute) Social History/Home Situation: Pt lives alone in a trailer in [facility] and refers to herself as a . She states that she does not drive and utilizes [facility] for community mobility. She has a walk in shower which she states that she has grab bars, shower bench, raised toilet seat but she also reports that she has not put these together yet. She has meals on wheels for her meals which she likes, she gets a ride to the grocery store and requires (A) with carrying in her bags which she has a neighbor who (A) with this at times. She attends the [facility] program in the mornings and reports that she has lifeline, a cell phone and uses a cane at baseline. She states that she does not feel like she is at her baseline level of function but has had HH in the past for PT which she states she only had him come twice because she did not enjoy. Equipment owned/DME: Cane, raised toilet seat, grab bars, shower bench, oxygen 2 liters SUBJECTIVE: NT OBJECTIVE: *Based on initial evaluation performed when pt was under acute care level status* General Observation: IV (R) UE, pleasant and able to answer questions appropriately Mental Status: A&Ox3 Pain: no c/o pain ROM: RUE AROM WFL L UE AROM WFL STRENGTH: RUE Shoulder flexion 4/5, bicep 3+/5, tricep 4-/5, bow stapler is symmetrical LUE Shoulder flexion 4/5, bicep 4/5, tricep 4-/5, bow stapler is symmetrical SENSATION: Intact (B) UE FUNCTIONAL MOBILITY/ADLS: BATHING Performed prior to OT consult with JUDE DRESSING Sitting in chair with min vc Dressing LE Pt was able to (I) don and doff (B) socks and shoes by bringing foot to chair with ideal knee bend GROOMING Pt was sitting chair and denies brushing teeth before breakfast TOILETING Pt denies but states that she can utilize the commode or toilet with min (A) BALANCE: Static sitting Good Dynamic Sitting Good SPECIAL TESTS: Daily Activity Limitations Standardized Measure [facility] AM -PAC ?6 clicks? Daily Activity Inpatient Short Form: Raw score: 16 Standardized score: 35.96 CMS score: 53.32% INFORMED CONSENT/EDUCATION: Pt instructed in purpose of OT Consult and plan of care. ASSESSMENT: Patient is a 64-year-old female referred to occupational therapy services with diagnosis of cachexia, COPD exacerbation and pneumomediastinum.Pt was seen for acute level evaluation and then transitioned to [facility] 1 rehabilitation care. OT will reassess pt under [facility] at this time for continued OT services and progression of functional (I) in ADL/IADL routines. GOALS Goals x1 week 1. Transfers with FWW (S) 2. Dressing in seated able to (I) don and doff pants, socks and shirt with good technique 3. Bathing in seated position (I) with UE/LE 4. Toileting on toilet (I) 5. Eating (I) PLAN OF CARE/TREATMENT PLAN: Pt to transition to [place] [id number] level rehabilitation here at [facility]. DISCHARGE RECOMMENDATIONS Based on pts current level of function OT recommends that pt have a FWW for functional mobility to increase pts stability and safety with her ADL routines and OT feels that pt would benefit from returning home with increased HH services to (A) pt with her ADLs/IADLs vs. LTC. TREATMENT TIME/MINUTES/CODES N/A Thu Mazariegos, OTR/L [facility]
== END 2020-02-07 13:11 | disposition swing bed (61) | DRG 177 ==
LOC: ER 21:10 → MS 23:04
PROVIDERS: Family Medicine; Internal Medicine; Student in an Organized Health Care Education/Training Program; Admitting Provider General Practice; Emergency Provider Physician Assistant; PCP Student in an Organized Health Care Education/Training Program; Visit Provider General Practice
DX: J69.0 Pneumonitis due to inhalation of food and vomit (principal); G92 Toxic encephalopathy; J93.83 Other pneumothorax; J44.1 Chronic obstructive pulmonary disease with (acute) exacerbation; Z68.1 Body mass index [BMI] 19.9 or less, adult; R64 Cachexia; F11.20 Opioid dependence, uncomplicated; I85.00 Esophageal varices without bleeding; J98.2 Interstitial emphysema; Z99.81 Dependence on supplemental oxygen; R63.4 Abnormal weight loss; J84.10 Pulmonary fibrosis, unspecified; R62.7 Adult failure to thrive; D72.829 Elevated white blood cell count, unspecified; Z66 Do not resuscitate; M48.061 Spinal stenosis, lumbar region without neurogenic claudication; F17.210 Nicotine dependence, cigarettes, uncomplicated; F41.8 Other specified anxiety disorders; K74.69 Other cirrhosis of liver; B18.2 Chronic viral hepatitis C; E11.9 Type 2 diabetes mellitus without complications; Z79.84 Long term (current) use of oral hypoglycemic drugs; G54.0 Brachial plexus disorders; T40.3X5A Adverse effect of methadone, initial encounter
CPT/HCPCS: 36410; 36415; 71275; 80048; 80053; 82805; 84145; 85027; 85652; 87040; 93005; 94640; 96361; 96365; 96375; 97162; 97166; 97530; 99222; 99232; 99233; 99239; 99253; 99285; U0003; 70450; 71045; 71046; 74221; 80202; 81003; 81015; 82140; 82607; 82746; 83605; 83615; 83735; 83880; 84484; 85025; 86140; 87086; 93010; 99281; J0696; J2060; J2310; J2405; J2543; J2765; J3490; J7512; J7620; J7633; J9999

== ENCOUNTER 2020-02-07 12:23 | Inpatient (IN) | payer MEDICARE, MEDICAID, SELFPAY ==
--- NOTE | 2020-02-07 12:25 | HPE_ITS ---
Date of service: 02/07/20 Time of Service: 12:26 Assessment and Plan Assessment and plan (1) Ambulatory dysfunction: Status: Acute Assessment and plan: Amatory dysfunction generalized weakness secondary to pulmonary cachexia and acute COPD exacerbation. Physical therapy and Occupational Therapy to be consulted and work with the patient to improve her strength and gait stability and ADL performance with the goals for independent living. 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 Continue with regular diet with high protein intake and supplemental shakes. Continue Megace. (4) COPD (chronic obstructive pulmonary disease): Status: Chronic Assessment and plan: I will ask respiratory therapy to obtain some baseline spirometry studies. Continue her home inhalers including Brio Ellipta and DuoNeb aerosols on a as needed basis. Continue prednisone 10 mg daily and taper off over the next few days. Qualifiers: COPD type: emphysema Emphysema type: panlobular Qualified Code(s): J43.1 - Panlobular emphysema (5) Failure to thrive in adult: Status: Chronic (6) Leukocytosis, unspecified: Status: Chronic Assessment and plan: Refer to hematology upon discharge. Qualifiers: Leukocytosis type: unspecified Qualified Code(s): D72.829 - Elevated white blood cell count, unspecified (7) Palliative care patient: Status: Chronic Assessment and plan: Consult palliative care to follow-up with her.Patient remains DNR/DNI in the event of cardiopulmonary failure (8) Spinal stenosis of lumbar region: Status: Chronic Assessment and plan: Continue Lidoderm patches and methadone at her current dose. Qualifiers: Neurogenic claudication status: without neurogenic claudication Qualified Code(s): M48.061 - Spinal stenosis, lumbar region without neurogenic claudication (9) Anxiety and depression: Status: Chronic Assessment and plan: Continue home dose of Wellbutrin (10) Cirrhosis of liver: Status: Chronic Assessment and plan: Continue home dose of spironolactone Qualifiers: Hepatic cirrhosis type: other cirrhosis Qualified Code(s): K74.69 - Other cirrhosis of liver (11) Hypertension: Status: Chronic Assessment and plan: Continue home dose of lisinopril Qualifiers: Hypertension type: essential hypertension Qualified Code(s): I10 - Essential (primary) hypertension (12) Discharge planning issues: Status: Acute Assessment and plan: Patient would like to return home to her trailer. She will require visiting nurse and LOADERS to follow-up with her as an outpatient. She may need continued physical therapy upon discharge from her inpatient rehab stay. (13) DVT prophylaxis: Status: Acute Assessment and plan: Low-dose enoxaparin will be added even though she is now more physically active. Think while she is on the Megace she should stay on the Lovenox unless she has evidence of GI bleeding. History of Present Illness History of Present Illness Chief Complaint: Generalized weakness Narrative: 64-year-old female COPD patient with chronic pain secondary to spinal stenosis who is been on chronic methadone as well as gabapentin was hospitalized from January 28, 2020 through February 07, 2020 for COPD exacerbation complicated by pneumomediastinum and bilateral loculated pneumothoraces secondary to a ruptured pulmonary bleb not requiring surgical intervention or chest tube placement who later went on to develop aspiration pneumonia associated with acute mental status change probably related to her chronic narcotic use. Patient's had a 50 pound weight loss over the past year and has had an extensive work-up as an outpatient. Patient's had multiple chest x-rays as well as CT scan of her abdomen and pelvis earlier this spring and more recently a CT scan of her chest during her current hospitalization as well as a CT of her head. Is felt that she is suffering from pulmonary cachexia and decreased oral intake secondary to chronic narcotic use. Since being hospitalized her appetite has markedly improved since she was put on Megace. Patient had extensive antibiotic treatment for aspiration pneumonia including Rocephin, Zosyn, cefepime. Patient is now off antibiotics not having any fevers however she has a persistent leukocytosis that upon review appears to have been a chronic issue over the last year and 1/2 to 2 years. Patient had been seen by certified ophthalmic surgical assistant and had a bone marrow biopsy in the remote past sometime in the . She has not had any anemia or thrombocytopenia issues during her hospitalization. While the patient has been on prednisone this is been tapered down to 10 mg daily and cannot account for the leukocytosis. She has had multiple tests for COVID-19 throughout this year including September and most recently with her current hospitalization all of which have been undetected. She is now admitted into the swing bed program to improve her strength as well as work on her ADL performance and her gait and ambulation. Patient lives in a mobile home and has a few stairs to get up into her home. She lives alone but has a neighbor that does her grocery shopping and mows her lawn and helps her with housework. Palliative medicine has seen her during her most recent hospitalization and helped her complete a P.O.L.S.T. form. Patient has chosen to be a DNR/DNI in the event of acute cardiopulmonary failure. Patient's goal is to get strong enough to be able to return home. Patient is willing to see certified ophthalmic surgical assistant upon discharge to evaluate her chronic leukocytosis. Review of Systems All systems reviewed & are unremarkable except as noted in HPI and below [facility] Medical History Abnormal CT of the chest (Acute 03/18/17) stable 2mm nodule in AILYN Annual Chest CT for lung cancer screening recommended Acute renal failure (Resolved 04/29/14) a. creatinine bumped from 0.8 to 2.9 b. h/o renal failure 06/2013, presented with creatinine 5.4, which normalized with IV fluids Acute right-sided low back pain without sciatica (Acute 06/08/17) Pain rad thru buttock, but not down leg. Priformis Syndr? [ ] PT [ ] Hx Pain Clinic (Injctn #1 helped, #2 did not). Occasional relief from SOMA. Trial GABAPENTIN 06/09/18.in past Anxiety and depression (Chronic) Bilateral pneumonia (Acute 04/29/14) A. Bilateral lower lobes Biliary colic (Inactive) Cirrhosis Cirrhosis of liver (Chronic) a. History of Hep C treatment. b. Liver biopsy 2005 positive for cirrhosis. 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 AFP levels every six months and ruq US every 12 months COPD (chronic obstructive pulmonary disease) (Chronic) Ongoing tobacco use. COPD (chronic obstructive pulmonary disease) (Chronic) Diabetes (Chronic) On Metformin. Diabetes mellitus DNI (do not intubate) (Acute) Essential hypertension (Chronic) Well maintained, meds tolerated. Hepatitis C HTN (hypertension) Hypertension (Chronic) Methadone dependence (Chronic) Nausea & vomiting (Acute) Neuropathy of right radial nerve (Chronic) a. recently had multiple falls and a hematoma around her humerus b. resolving Pleuritic chest pain (Acute 04/29/14) a. left sided POLST (Physician Orders for Life-Sustaining Treatment) (Chronic) Polysubstance abuse (Chronic) a. h/o opiate overdose 06/2013 and 11/2013 b. recently started in [facility] program 03/13/2014 on oral methadone (missed her dose today) Shortness of breath (Acute) Spinal stenosis (Chronic) a. MRI 10/2009, showed L4-5 narrowing Tobacco abuse (Chronic) Tobacco use disorder Varices of esophagus determined by endoscopy (Acute) Surgical History Appendectomy (01/30/07) H/O: hysterectomy (Chronic) History of ankle surgery (Acute) left S/P bilateral breast lumpectomy (Acute) Family History Mother Myocardial infarction Stroke Sister Diabetes Myocardial infarction Sister Diabetes Father Diabetes Alcohol abuse Myocardial infarction Social History Smoking/Tobacco Use Status: Current every day Tobacco Type: cigarettes Smoking packs per day: 1 Smoking cigarettes per day: 20.0 Years smoked: 40 Smoking pack- years: 40.00 Quit status: considering quitting Counseling given: other Details: pt feels motivated and states she doesnt enjoy them now Alcohol Intake: never Drug use: Current Sobriety Substance use type: heroin Details: on [facility] clinic Adopted: No Household members: none Housing: house Communication Needs: None Pets and animals: Yes Pets and animals: cat(s) What is your relationship status?: Panel score (0-1 are the most socially isolated patients): 0 What type of physical activity do you participate in: none Seatbelt use: always Drive intox or ride w/intox funeral car driver: No Working smoke detector in home: Yes Fire extinguisher in home: Yes Carbon monox detector in home: Yes Do you feel safe at home: Yes Do you feel safe in your relationship?: Yes Meds Home Medications and Allergies Home Medications Medication Instructions Recorded Confirmed Type triamcinolone acetonide 1 lorraine TOPICAL TID PRN #30 gm 09/07/17 01/28/20 History compressor, for nebulizer #1 each 09/28/18 01/28/20 Rx methadone 10 mg/mL oral concentrate 75 mg PO DAILY ml 09/28/18 01/28/20 History cholecalciferol (vitamin D3) 50 2,000 unit PO DAILY 01/24/19 01/28/20 History mcg (2,000 unit) capsule ipratropium 0.5 mg-albuterol 3 mg 3 ml UPD Q6H PRN PRN #90 ml 01/24/19 01/28/20 Rx (2.5 mg base)/3 mL nebulization soln lisinopril 10 mg tablet 10 mg PO DAILY #90 tab-cap 03/22/19 01/28/20 Rx aspirin 81 mg PO DAILY #30 tab 05/24/19 01/28/20 Rx fluticasone furoate 200 1 inh IH DAILY #60 each 07/06/19 01/28/20 Rx mcg-vilanterol 25 mcg/dose inhalation powder mirtazapine 30 mg tablet 30 mg PO HS #30 tab-cap 07/26/19 01/28/20 Rx bupropion HCl 300 mg 24 hr tablet, 300 mg PO DAILY #90 tab 08/16/19 01/28/20 Rx extended release food supplemt, lactose-reduced See Rx Instructions PO BID #237 ml 08/19/19 01/28/20 Rx 0.04 gram-1.05 kcal/mL oral liquid furosemide 40 mg PO BID 09/19/19 01/28/20 History spironolactone 25 mg tablet 50 mg PO BID #120 tab 10/16/19 01/28/20 Rx docusate sodium [Colace] 100 mg PO TID PRN PRN #30 cap 11/01/19 01/28/20 Rx nicotine 14 mg TRANSDERMAL DAILY #30 ea 11/01/19 01/28/20 Rx polyethylene glycol 3350 17 g PO DAILY PRN PRN #510 g 11/01/19 01/28/20 Rx haloperidol lactate 2 mg/mL oral 0.5 mg PO TID PRN #15 ml MDD 1.5 mg 11/30/19 01/28/20 Rx concentrate scopolamine base 1 mg over 3 days 1 patch TD Q3D #10 each 12/12/19 01/28/20 Rx transdermal patch hydroxyzine HCl 50 mg tablet 50 mg PO QID PRN #60 tab 01/18/20 01/28/20 Rx omeprazole 20 mg capsule,delayed 40 mg PO DAILY #60 cap 01/18/20 01/28/20 Rx release ondansetron 4 mg disintegrating 4 mg PO Q8H PRN #30 tab 01/18/20 01/28/20 Rx tablet prednisone 20 mg tablet 40 mg PO DAILY #8 tab 01/18/20 01/28/20 Rx Refresh Tears 1 drp OPHTHALMIC (EYE) DIRECTED 01/23/20 01/28/20 History albuterol sulfate [Ventolin HFA] 2 puff INHALATION BID 01/23/20 01/28/20 History amoxicillin-pot clavulanate 1 tab PO BID 10 Days #20 tab 01/23/20 01/28/20 Rx [Augmentin] doxycycline hyclate 100 mg PO BID 7 Days #14 tab 01/23/20 01/28/20 Rx magnesium chloride [Mag 64] 500 mg PO BID 01/23/20 01/28/20 History prednisone See Rx Instructions .ROUTE 01/23/20 01/28/20 Rx .COMPLEX #12 tab gabapentin 300 mg capsule 300 mg PO TID #90 cap 02/06/20 Rx Allergies Allergy/AdvReac Type Severity Reaction Status Date / Time gabapentin AdvReac Severe Nausea Verified 01/28/20 13:50 metaxalone [Metaxalone] AdvReac Severe nausea Verified 01/28/20 13:50 diclofenac [Diclofenac] AdvReac Intermediate contraindicated Verified 01/28/20 13:50 w/ pt's liver promethazine AdvReac Mild disoriented Verified 01/28/20 13:50 prochlorperazine AdvReac Unknown disoriented Verified 01/28/20 13:50 Exam Narrative Exam Narrative: Kyphotic elderly female sitting up in her chair. She is dressed wearing her own clothes. She is pleasant and conversant. She seems to be alert and is oriented at least to place and circumstances. Lungs with diffuse fine cellophane rales no rhonchi Heart is regular rate and rhythm Abdomen soft nontender Extremities without peripheral cyanosis or edema Psych Mental Status: mental status grossly normal Speech and Movement: speech and movement normal Mood: congruent mood Affect: normal affect COVID-19 Screening Have you,or household,traveled outside [place] in last 14 days?: No
--- NOTE | 2020-02-07 13:19 | PT.INNT ---
Date of service: 02/07/20 Time of Service: 13:15 PT Notes Visit Reasons: COPD CACHEXIA, GENERALIZED WEAKNESS, AMBULATORY BRIONNA Malone refused PT x 2 today. She reported this am that she was nauseous and tired, and would feel that way until she gets her dose. This pm she refuses again reporting that she was too tired. She got upset with me when I tried to coax her into walking or performing a small exercise routine as she sat in her chair. You are not going to convince me to do anything. I will check in with her in the am.
[2020-02-07] MEDS: dilTIAZem 60 MG TAB PO ×2 (13:35→19:22)
[2020-02-07] MEDS: Enoxaparin 30 MG/0.3 ML SYR SC (13:36)
[2020-02-07] MEDS: Pantoprazole 20 MG TABCR PO (13:36)
--- NOTE | 2020-02-07 14:27 | CMPROGNOTE_ITS ---
- If Service Date Differs Date of service: 02/07/20 Time of Service: 14:28 Care Management Progress Note S/O: Kira was sitting up in her chair when CM met her. She had her own clothes on, and was pleasant and engaged in conversation. CM discussed her discharge plan regarding the need for her to have rehab prior to returning home. She will need to work with PT/OT to be able to maneuver the six stairs going into her house, as well as becoming more independent with her ADL's as she lives at home alone. Due to her methadone being prescribed from [facility] for substance use, she will not be accepted at any local facilities for rehab. She agreed to remain at [facility] for her continued rehab. CM discussed the importance of her participation with PT, as she will be working toward goals for discharge. She would like to return home as soon as she can. CM will also follow up with her care home [facility] ap plication which was recently submitted which may help her to have more services in the home. CM will continue to follow. A: Kira is a 64 year old female admitted to [facility] on 01/30/20 for COPD, Pneum onia. P: Kira will transition to [facility] today for short term rehab with goals to gain strength, maneuver her 6 steps into her home, become more independent with ADL's, and coordinate care in the home. Her LTD application has been submitted on 02/05/20 by ELIZABETH. Once she has met her goals, determined and evaluated by the care team, she will return home with RN, PT, OT, NATURAL RESOURCE OFFICER. She will need a last dose letter for DEANNA. She will follow up with her PCP and discharge plan of care. CM will continue to follow and support discharge planning considerations.
--- NOTE | 2020-02-07 14:27 | PHA.REVIEW ---
Pharmacy Admission Review - Admission Clinical Review (Last Updated 02/07/20 @ 12:49 by Jelani Lopez) Generalized weakness (Acute) Ambulatory dysfunction (Acute) Discharge planning issues (Acute) DVT prophylaxis (Acute) gabapentin Adverse Reaction (Severe, Verified 01/28/20 13:50) Nausea metaxalone [Metaxalone] Adverse Reaction (Severe, Verified 01/28/20 13:50) nausea diclofenac [Diclofenac] Adverse Reaction (Intermediate, Verified 01/28/20 13:50) contraindicated w/ pt's liver promethazine Adverse Reaction (Mild, Verified 01/28/20 13:50) disoriented prochlorperazine Adverse Reaction (Unknown, Verified 01/28/20 13:50) disoriented - Renal Dosing Medications needing adjustments: Reviewed List of meds needing interventions: Current meds okay - Anticoagulation DVT Prohphylaxis: Reviewed Medications: Enoxaparin Therapeutic Anticoagulation: Reviewed Medications: Aspirin - Opiate Usage Evaluate Pain Scale/Pains Meds: Reviewed Scheduled Bowel Reg ordered if on Opiates?: Yes - Relevant Labs Electrolytes, C-Reactive P, ESR: N/A (Chronic leokocytosis) - DM Control Insulin Dosing: N/A - Heart Failure/MA EF%, MICKI's, B-Blockers, Diuretics: Reviewed - BP Control If elevated: Reviewed - Qtc Review If Elevated: Reviewed (Methadone = QT prolonging) - IV to PO Switch IV Medications: Reviewed - Home Meds Home Med List reviewed: Reviewed Relevent Home Meds Not ordered & why?: Breo inhaler -- fidel budesonide nebs and fidel duonebs ordered, expect addition of symbicort if MD wishes to restart home inhaler - Current meds Current Medication Order Review: Reviewed (Prednisone taper continues) - Comments Comments/Follow Ups: Swing bed as of 02/06; completed extensive IV abx regimen x9 pays prior, off now, does have chronic issue leokocytosis; methadone dose has been adjusted down to 30mg daily from 75mg daily upon admission
--- NOTE | 2020-02-07 14:28 | CM.SWINGPC ---
- If Service Date Differs Date of service: 02/07/20 Time of Service: 14:28 Swingbed Plan of Care Plan of care: SWING BED PROGRAM ACTIVITIES/DISCHARGE PLAN OF CARE ACTIVITIES PLAN Date: 02/07/20 Identified Need: Individual needs determined by pt and care team. Intervention/Plan: Offer cart items, books, TV/Movies. Kira prefers scary movies and thriller books. Initials KM DISCHARGE PLAN Date: 02/07/20 Identified Need: Gain strength, be able to maneuver 6 stairs into home, independence with ADL's, increase services in the home. Intervention/Plan: Work with PT/OT, CM to assist with LTMCD and coordinating care in the home. Initials SOO
--- NOTE | 2020-02-07 14:33 | CM.SBPSYCH ---
- If Service Date Differs Date of service: 02/07/20 Time of Service: 14:33 SB Psychosocial/Act.Assessment - Hospital Admission Admission Date: 01/28/20 Admission From:: Home Diagnosis:: COPD, Pneumonia - Swing Bed Admission Swing Bed Admit Date:: 02/07/20 Swing Bed Level of Care: Level 1/SNF - Social Supports PREVIOUS FUNCTIONAL STATUS/SOCIAL/FAMILY SUPPORTS:: Kira lives alone in a mobile home in [facility]. She uses [facility] for transportation and has many community supports which include Meals on Wheels, Food [place], fuel assistance and [facility]. She has also recently received a eloy from [facility] for improvements to her home.Kira is independent at baseline. She attends a woman's support group at [facility] on and has several close friends who are very supportive. - Prior to Admission Living Arrangements/Environment Prior to Admission:: Kira lives alone in a trailer. She has six steps to get into her home. She has neigbors and friends who check in on her regularly. 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 - Interests Hobbies:: Kira stated that she used to garden but has lost interest. TV/Movies:: Kira stated that she prefers Horror movies- the scarier the better. Reading:: Kira likes to pass the time reading, mostly thriller genre. - Present Functional Status Physical Abilities:: Limited, weak. Cognitive:: AOx3, often confused about events/timelines. Communication:: Good communication when agreeable to engage. Sensory Systems: Intact, wears glasses. Behavior:: Calm, appropriate. Sometimes refuses to engage. - Medical History PAST MEDICAL HISTORY/PAST SURGICAL HISTORY:: Medical History. Abnormal CT of the chest (Acute 03/18/17). stable 2mm nodule in [facility]. Annual Chest CT for lung cancer screening recommended. Acute renal failure (Resolved 04/29/14). a. creatinine bumped from 0.8 to 2.9. b. h/o renal failure 06/2013, presented with creatinine 5.4, which normalized with IV fluids. Acute right-sided low back pain without sciatica (Acute 06/08/17). Pain rad thru buttock, but not down leg. Priformis Syndr? [ ] PT [ ] Hx Pain Clinic (Injctn #1 helped, #2 did not). Occasional relief from [facility]. Trial GABAPENTIN 06/09/18.in past. Anxiety and depression (Chronic). Bilateral pneumonia (Acute 04/29/14). A. Bilateral lower lobes. Biliary colic (Inactive). Cirrhosis. Cirrhosis of liver (Chronic). a. History of Hep C treatment. b. Liver biopsy 2005 positive for cirrhosis. 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 a. AFP levels every six months and ruq US every 12 months. COPD (chronic obstructive pulmonary disease) (Chronic). Ongoing tobacco use. COPD (chronic obstructive pulmonary disease) (Chronic). Diabetes (Chronic). On Metformin. Diabetes mellitus. DNI (do not intubate) (Acute). Essential hypertension (Chronic). Well maintained, meds tolerated. Hepatitis C. HTN (hypertension). Hypertension (Chronic). Methadone dependence (Chronic). Nausea & vomiting (Acute). Neuropathy of right radial nerve (Chronic). a. recently had multiple falls and a hematoma around her humerus. b. resolving. Pleuritic chest pain (Acute 04/29/14). a. left sided. POLST (Physician Orders for Life-Sustaining Treatment) (Acute). Polysubstance abuse (Chronic). a. h/o opiate overdose 06/2013 and 11/2013. b. recently started in [facility] program 03/13/2014 on oral methadone (missed her dose today). Shortness of breath (Acute). Spinal stenosis (Chronic). a. MRI 10/2009, showed L4-5 narrowing. Tobacco abuse (Chronic). Tobacco use disorder. Varices of esophagus determined by endoscopy (Acute). Surgical History. Appendectomy (01/30/07). H/O: hysterectomy (Chronic). History of ankle surgery (Acute). left. S/P bilateral breast lumpectomy (Acute) - Admission Data Reason for Swing Bed Admission:: Gain strength, work on stair training, independence with ADL's, coordinate care in the home. Discharge Plan:: Kira will transition to [facility] today for short term rehab with goals to gain strength, maneuver her 6 steps into her home, become more independent with ADL's, and coordinate care in the home. Her LTD application has been submitted on 02/05/20 by ELIZABETH. Once she has met her goals, determined and evaluated by the care team, she will return home with RN, PT, OT, SPECIAL LIBRARIAN. She will need a last dose letter for DEANNA. She will follow up with her PCP and discharge plan of care. CM will continue to follow and support discharge planning considerations. Assessment: Kira will work with PT/OT and CM toward goals. CM discussed the importance of her involvement in rehab in order for her to reach her goal of returning home. Processing Archivist: Randi Leach Date Assessment was completed:: 02/07/20
[2020-02-07 15:55] VITALS: BP 107/75; PULSE 94; RESP 19; TEMP 37.1; O2SAT 98
[2020-02-07] MEDS: Ondansetron 4 MG/2 ML VIAL IVP (16:24)
[2020-02-07 17:06] VITALS: RESP 2; RESP 4; RESP 7
[2020-02-07] MEDS: Albuterol/Ipratropium 3 ML UPD VIAL UPD (17:06)
[2020-02-07 17:07] VITALS: RESP 2; RESP 4; RESP 7
[2020-02-07 18:55] VITALS: BP 111/69; PULSE 83; RESP 19; TEMP 37.5; O2SAT 93
[2020-02-07] MEDS: Magnesium Oxide 400 MG TAB PO (19:22)
[2020-02-07] MEDS: Spironolactone 25 MG TAB 50 MG PO (19:22)
[2020-02-07] MEDS: Senna TAB 1 TAB PO (19:22)
[2020-02-07] MEDS: Budesonide 0.25 MG/2 ML UPD VIAL UPD (19:23)
[2020-02-07] MEDS: Gabapentin 300 MG CAP PO (22:55)
[2020-02-07] MEDS: LIDOCAINE Patch Removal 2 EACH TP (22:56)
[2020-02-08] VITALS (8 sets, daily range): BP systolic 103–126; BP diastolic 65–81; PULSE 78–88; RESP 1–20; TEMP 36.7–37.1; O2SAT 94–99
[2020-02-08] MEDS: Ondansetron 4 MG/2 ML VIAL IVP ×2 (03:53→19:33)
[2020-02-08] MEDS: Albuterol/Ipratropium 3 ML UPD VIAL UPD ×3 (06:00→17:20)
[2020-02-08 06:42] LABS: Abs Immature Grans 0.23 10^3/uL (0.0-0.06); Absolute Basophil Count 0.04 10^3/uL (0.0-0.2); Absolute Monocyte Count 1.35 10^3/uL (0.1-0.8); Absolute Neutrophil Count 18.42 10^3/uL (1.2-6.7); Basophils % 0.2; Eosinophils % 0.7; HCT 38.7 % (36.0-46.0); Lymphocytes % 10.2; MCH 26.1 pg (27.0-33.0); MCV 84.3 fL (80-95); MPV 9.9 fL (8.0-11.0); Neutrophils % 81.9; Nucleated RBC 0 %; Platelet Count 348 10^3/uL (130-400); RBC 4.59 10^6/uL (3.93-5.22); RDW-SD 48.9 fL; WBC 22.49 10^3/uL (4.4-10.8)
[2020-02-08 06:45] LABS: Absolute Eosinophil Count 0.16 10^3/uL (0.0-0.7); Absolute Lymphocyte Count 2.29 10^3/uL (1.2-3.4)
--- NOTE | 2020-02-08 07:40 | NT_ITS ---
Date of service: 02/08/20 Time of Service: 07:40 Occupational Therapy Notes 02/08/20 OT attempted to see pt who refuses to work with Occupational Therapist at this time. She reports that she does not need help with her ADL routines and she is not going to do anything today. OT will make contact with nursing as well as care management to discuss this with them. Pt did allow OT to educate and provide her with dressing stick with education provided on basic use and how to don and doff pants and socks with this. Pt denies the need for any other adaptive equipment at this time. OT will attempt to evaluate pt under [facility] bed level of care again on 02/10 to continue to progress pts functional (I) in her ADL/IADL routines and promote functional (I) towards her baseline level of function. Thu Mazariegos, OTR/[facility]
[2020-02-08] MEDS: Polyethylene Glycol 3350 17 GM PACKET PO (07:47)
[2020-02-08] MEDS: Enoxaparin 30 MG/0.3 ML SYR SC (07:47)
[2020-02-08] MEDS: Nicotine 14 MG/24 HR PATCH TD (07:47)
[2020-02-08] MEDS: Spironolactone 25 MG TAB 50 MG PO ×2 (07:48→19:35)
[2020-02-08] MEDS: Omeprazole 20 MG CAPCR 40 MG PO (07:48)
[2020-02-08] MEDS: Magnesium Oxide 400 MG TAB PO ×2 (07:49→19:36)
[2020-02-08] MEDS: Aspirin E.C. 81 MG TABEC PO (07:49)
[2020-02-08] MEDS: Senna TAB 1 TAB PO ×2 (07:49→19:36)
[2020-02-08] MEDS: dilTIAZem 60 MG TAB PO ×3 (07:49→19:37)
[2020-02-08] MEDS: buPROPion-XL 150 MG TABCR 300 MG PO (07:49)
[2020-02-08] MEDS: Pantoprazole 20 MG TABCR PO (07:49)
[2020-02-08] MEDS: predniSONE 10 MG TAB PO (07:50)
[2020-02-08] MEDS: Lisinopril 10 MG TAB PO (07:50)
[2020-02-08] MEDS: Budesonide 0.25 MG/2 ML UPD VIAL UPD ×2 (07:58→19:38)
--- NOTE | 2020-02-08 08:35 | OT.INIE ---
Occupational Therapy Notes Inpatient Occupational Therapy [facility] Bed 1 Evaluation Date: 02/08/20 Referring Doctor:Jelani Lopez MD OT Orders: Non-Urgent, Extended Stay- weakness Precautions: Fall, standard, DNR/DNI PATIENT PROFILE/ADMITTING DIAGNOSIS: Pt is a 64 year old female who presented to the ER with shortness of breath. She was admitted for d/x of cachexia, COPD exacerbation and pneumomediastinum. Past Medical History- Abnormal CT of the chest (Acute 03/18/17) stable 2mm nodule in [facility] Annual Chest CT for lung cancer screening recommended Acute renal failure (Resolved 04/29/14) a. creatinine bumped from 0.8 to 2.9 b. h/o renal failure 06/2013, presented with creatinine 5.4, which normalized with IV fluids Acute right-sided low back pain without sciatica (Acute 06/08/17) Pain rad thru buttock, but not down leg. Priformis Syndr? [ ] PT [ ] Hx Pain Clinic (Injctn #1 helped, #2 did not). Occasional relief from [facility]. Trial GABAPENTIN 06/09/18.in past Anxiety and depression (Chronic) Bilateral pneumonia (Acute 04/29/14) A. Bilateral lower lobes Biliary colic (Inactive) Cirrhosis Cirrhosis of liver (Chronic) a. History of Hep C treatment. b. Liver biopsy 2005 positive for cirrhosis. 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 AFP levels every six months and ruq US every 12 months COPD (chronic obstructive pulmonary disease) (Chronic) Ongoing tobacco use. COPD (chronic obstructive pulmonary disease) (Chronic) Diabetes (Chronic) On Metformin. Diabetes mellitus DNI (do not intubate) (Acute) Essential hypertension (Chronic) Well maintained, meds tolerated. Hepatitis C HTN (hypertension) Hypertension (Chronic) Methadone dependence (Chronic) Nausea & vomiting (Acute) Neuropathy of right radial nerve (Chronic) a. recently had multiple falls and a hematoma around her humerus b. resolving Pleuritic chest pain (Acute 04/29/14) a. left sided POLST (Physician Orders for Life-Sustaining Treatment) (Acute) Polysubstance abuse (Chronic) a. h/o opiate overdose 06/2013 and 11/2013 b. recently started in [facility] program 03/13/2014 on oral methadone (missed her dose today) Shortness of breath (Acute) Spinal stenosis (Chronic) a. MRI 10/2009, showed L4-5 narrowing Tobacco abuse (Chronic) Tobacco use disorder Varices of esophagus determined by endoscopy (Acute) Social History/Home Situation: Pt lives alone in a trailer in [place] and refers to herself as a . She states that she does not drive and utilizes [facility] for community mobility. She has a walk in shower which she states that she has grab bars, shower bench, raised toilet seat but she also reports that she has not put these together yet. She has meals on wheels for her meals which she likes, she gets a ride to the grocery store and requires (A) with carrying in her bags which she has a neighbor who (A) with this at times. She attends the [facility] program in the mornings and reports that she has [employer], a cell phone and uses a cane at baseline. She states that she does not feel like she is at her baseline level of function but has had HH in the past for PT which she states she only had him come twice because she did not enjoy. Equipment owned/DME: Cane, raised toilet seat, grab bars, shower bench, oxygen 2 liters SUBJECTIVE: Pt is agreeable to OT session and reports that she is feeling better today. OBJECTIVE: General Observation: IV (R) UE, pleasant and able to answer questions appropriately Mental Status: A&Ox3 Pain: no c/o pain ROM: RUE AROM WFL L UE AROM WFL STRENGTH: RUE Shoulder flexion 4/5, bicep 3+/5, tricep 4-/5, boat mechanic is symmetrical LUE Shoulder flexion 4/5, bicep 4/5, tricep 4-/5, boat mechanic is symmetrical SENSATION: Intact (B) UE FUNCTIONAL MOBILITY/ADLS: Sit-stand CGA, FWW Stand-sit CGA, FWW Sink-Chair CGA, FWW BATHING Standing at sink with FWW with max (A) Set up/min (A) clean up pt was (I) with face, (B) UE, nette area and (B) LE to knees. Denies hair and (B) feet. DRESSING Sitting in chair with min vc Pt was able to (I) doff hospital gown, (I) manjula sweatshirt, (I) doff underwear, min (A) donning, (I) don and doff (B) socks with min vc and with min (A) manjula (B) shoes. Pt required increased performance time and multiple breaks due to breathing. Min (A) donning pants and getting foot into leg hole. GROOMING standing at sink with FWw and min vc for standing position (I) with brushing teeth TOILETING on toilet with min vc (I) with toileting hygiene BALANCE: Static sitting Normal Dynamic Sitting Normal Static standing Good Dynamic Standing Good SPECIAL TESTS: Daily Activity Limitations Standardized Measure [facility] AM -PAC ?6 clicks? Daily Activity Inpatient Short Form: Raw score: 20 Standardized score: 42.03 CMS score: 38.32% INFORMED CONSENT/EDUCATION: Pt instructed in purpose of OT Consult and plan of care. ASSESSMENT: Patient is a 64-year-old female referred to occupational therapy services with diagnosis of cachexia, COPD exacerbation and pneumomediastinum. Patient presents with clinical signs and symptoms consistent with dx, as demonstrated by the following impairment level findings/ functional limitations: Impairment in ADL/IADL and leisure activities, decreased functional activity tolerance, decreased functional mobility required for ADL/IADL, decreased breathing with functional activities/ADL/IADL routines. AMPAC score 20 Patient is assessed as a Moderate [id number] complexity based on the following: History: See above Examination: see functional limitations as noted above Presentation: evolving Decision Making: AMPAC score 20 GOALS Goals x1 week 1. Transfers with FWW (I) 2. Dressing in seated able to (I) don and doff pants, socks and shirt with good technique with 1-2 breaks for breathing 3. Bathing standing at sink (I) with UE/LE with 1-2 breaks and (I) demonstration of energy conservation techniques 4. Toileting on toilet (I) able to demonstrate this 2x 5. Eating (I) 6. Grooming Standing at sink (I) with brushing hair and teeth with 1-2 breaks for breathing PLAN OF CARE/TREATMENT PLAN: 1x/day, 5 days/ week x 1week Initiate Occupational Therapy Services for bathing, dressing, grooming, toileting, eating, transfer training. DISCHARGE RECOMMENDATIONS Based on pts current level of function OT recommends that pt have a FWW for functional mobility to increase pts stability and safety with her ADL routines and OT feels that pt would benefit from returning home with increased HH services to (A) pt with her ADLs/IADLs vs. LTC. TREATMENT TIME/MINUTES/CODES [id number], [id number], 30 minutes (08:05) Thu Mazariegos OTR/[facility]
[2020-02-08] MEDS: Lidocaine 5% Patch 2 PATCH TP (09:59)
--- NOTE | 2020-02-08 11:50 | IN_ITS ---
Date of service: 02/08/20 Time of Service: 08:30 PT Notes Visit Reasons: COPD CACHEXIA, GENERALIZED WEAKNESS, AMBULATORY DY Referring Doctor: Dr. Lopez PT Orders: PT CONSULT: treat generalized weakness from respiratory cachexia Precautions: fall, standard Patient Profile/Admitting Diagnosis: Patient admitted from ER, where she presented with shortness of breath. She was admitted for management of cachexia, COPD exacerbation and pneumomediastinum. She has been transferred to swing bed status PMHX: Abnormal CT of the chest (Acute 03/18/17) stable 2mm nodule in AILYN Annual Chest CT for lung cancer screening recommended Acute renal failure (Resolved 04/29/14) a. creatinine bumped from 0.8 to 2.9 b. h/o renal failure 06/2013, presented with creatinine 5.4, which normalized with IV fluids Acute right-sided low back pain without sciatica (Acute 06/08/17) Pain rad thru buttock, but not down leg. Priformis Syndr? [ ] PT [ ] Hx Pain Clinic (Injctn #1 helped, #2 did not). Occasional relief from SOMA. Trial GABAPENTIN 06/09/18.in past Anxiety and depression (Chronic) Bilateral pneumonia (Acute 04/29/14) A. Bilateral lower lobes Biliary colic (Inactive) Cirrhosis Cirrhosis of liver (Chronic) a. History of Hep C treatment. b. Liver biopsy 2005 positive for cirrhosis. 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 AFP levels every six months and ruq US every 12 months COPD (chronic obstructive pulmonary disease) (Chronic) Ongoing tobacco use. COPD (chronic obstructive pulmonary disease) (Chronic) Diabetes (Chronic) On Metformin. Diabetes mellitus DNI (do not intubate) (Acute) Essential hypertension (Chronic) Well maintained, meds tolerated. Hepatitis C HTN (hypertension) Hypertension (Chronic) Methadone dependence (Chronic) Nausea & vomiting (Acute) Neuropathy of right radial nerve (Chronic) a. recently had multiple falls and a hematoma around her humerus b. resolving Pleuritic chest pain (Acute 04/29/14) a. left sided POLST (Physician Orders for Life-Sustaining Treatment) (Acute) Polysubstance abuse (Chronic) a. h/o opiate overdose 06/2013 and 11/2013 b. recently started in [facility] program 03/13/2014 on oral methadone (missed her dose today) Shortness of breath (Acute) Spinal stenosis (Chronic) a. MRI 10/2009, showed L4-5 narrowing Tobacco abuse (Chronic) Tobacco use disorder Varices of esophagus determined by endoscopy (Acute) Social History/Home Situation: Patient lives independently in a trailer in [place]. She has 5-6 ORIN, which she states that she had no longer been able to manage in the days preceding her admission. She has a cane that she uses intermittently. She admits that she's had difficulty ambulating the distance to her bathroom leading up to her admission. She has a neighbor who plans to stay with her for a couple weeks when she returns home. Equipment Owned/DME: cane Subjective: Patient reports feeling weak and short of breath when she moves. She reports being fearful of falling at home. Objective: General Observation: Resting in recliner just about to have breakfast. NO medical lines currently in place. Mental Status: A&Ox3 ROM: Right Upper Extremity: WFL Left Upper Extremity: WFL Right Lower Extremity:WFL Left Lower Extremity: WFL Strength: Right Upper Extremity: Shoulder flexion 4/5. Biceps 4+/5. Triceps 4+/5 Left Upper Extremity: Shoulder flexion 4/5. Biceps 4+/5. Triceps 4+/5 Right Lower Extremity: Hip flexion 4/5. Quads 4+/5. Ankle DF 4/5. Left Lower Extremity: Hip flexion 4/5. Quads 4+/5. Ankle DF 4/5. Bed Mobility/Transfers: Bed mobility not reassessed as patient was already in recliner stand-sit: min A Gait: Patient able to perform sit to stand into with FWW and CGA . She ambulates 40' with FWW, CGA A,. Balance: Static Sitting: good Dynamic Sitting: fair Static Standing: fair Dynamic Standing: fair Special Tests: Mobility Limitations Standardized Measure [facility] AM-PAC 6 clicks Basic Mobility Inpatient Short Form: Raw Score: 18 CMS Score: 47% deficit Informed Consent/Education: Patient instructed in purpose of PT consult and plan of care. Assessment: Patient is a 64 year old female referred to physical therapy services with the diagnosis of cachexia, COPD exacerbation. Patient presents with clinical signs and symptoms consistent with mobility deficits related to a combination of acute medical issues and chronic underlying health conditions. I do have concerns about her ability to return home due to her severe limitations in activity tolerance. Discussed concerns with Care Management. She requires skilled PT intervention to maximize activity tolerance and safety, with efforts to acheive maximal independence. Will continue reassessing for appropriate discharge planning. She currently demonstrates the following impairment level findings: 1. Decreased UE strength 2. Decreased LE strength 3. Decreased activity tolerance 4. increased risk for falls Impairments are contributing to the following functional limitations: 1. unable to tolerate household distance ambulation due to BROWN 2. unable to manage stairs 3. unable to independently transfer Patient is assessed as Moderate [id number] complexity based on the following: History: 64-year-old female presenting with severe limitations in functional mobility related to acute medical issues in addition to multiple underlying chronic health conditions. Patient has a complicated medical history, as noted above. Examination: Limitations as noted above Presentation: Evolving Decision Making: Moderate complexity Goals: Goals X1 week 1. Sit-Stand: Independent 2. Stand-Sit: Independent 3. Bed-Chair: Supervision with FW W 4. Chair-Bed: Supervision with FW W 5. Gait: Supervision with FW W x300 feet 6. Stairs: Min assist with single rail x6 steps Plan of Care/Treatment Plan: 1-2x/day, 7 days/week x 1 week. Plan of care has been reviewed with the MENTAL HEALTH PROGRAM MANAGER providing the service under Physical Therapy direction. Initiate Physical Therapy intervention for strengthening, bed mobility, transfers, gait, stairs, balance training, use of assistive device. DISCHARGE RECOMMENDATIONS: Home with home health PT versus correction. We will continue reassessing for discharge planning as patient progresses TREATMENT CODE/TIME: 8:30 to 8:45 ([id number]) Lasha Aviles, PT, DPT [facility]
[2020-02-08] MEDS: Methadone Liquid 10 MG/ML 30 MG PO (12:04)
--- NOTE | 2020-02-08 13:36 | W.PALPGNOTE ---
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 (4) Failure to thrive in adult: Status: Chronic (5) Discharge planning issues: Status: Acute (6) POLST (Physician Orders for Life-Sustaining Treatment): Status: Chronic (7) Opioid dependence on agonist therapy: Status: Chronic (8) Spinal stenosis: Status: Chronic Qualifiers: Spinal region: lumbar Neurogenic claudication status: unspecified Qualified Code(s): M48.061 - Spinal stenosis, lumbar region without neurogenic claudication (9) COPD (chronic obstructive pulmonary disease): Status: Chronic Qualifiers: COPD type: emphysema Emphysema type: panlobular Qualified Code(s): J43.1 - Panlobular emphysema (10) 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: Status: Chronic (11) Palliative care patient: Status: Chronic Assessment and plan: The plan for Kira is to transition to swing bed to continue PT prior to her discharge. She states that she is going home Tuesday. It is unclear if this is a realistic goal at this point. She is refusing rehab. She has 2 neighbors that can help her out to a limited extent at home. She denies having anyone else that can help her at home if she needs more assistance. Her methadone dose has been decreased drastically. She was previously on 75 mg/day, her dose has been decreased to 30 mg/day. This may have contributed to her inability to take in enough calories at home. She has been eating and drinking at the hospital. She had intermittent nausea, zofran helps. She has chronic back pain, her methadone has been prescribed for opioid dependence but has also provided pain control. Her pain is well controlled on the current dose. She is a DNR/DNI. Palliative care will continue to follow Kira while in the hospital and after her discharge. Subjective Subjective Interval history since last seen: Kira feels much better than when she came in. She is not SOB at rest, she is SOB with exertion, she occasionally feels wheezy. Her cough is improving. She is eating and drinking and tolerating her diet, her appetite is improved. She has had intermittent nausea, zofran helps. She is having regular bowel movements, no diarrhea. Denies dysuria, hematuria. She is working with PT. She has a long history of upper back pain. The methadone helps. She has not had any cravings for opioids for years. She is OK with continuing to go to [facility] for her methadone as long as she is on a schedule and can continue to get rides with [facility]. She states she is going home Tuesday, 02/10 (3 days). She is adamant that she is leaving on Tuesday. She will not consider a rehab or community correction at this. She states she has 2 neighbors that can help her if need be, she denies any other people in her life that could help her at home. She is willing to have home PT and nursing. Exam Narrative Exam Narrative: General: very thin, frail, cachectic appearing female, bones prominent, appears older than stated age. Sitting up in the chair. Slightly agitated. HEENT: Normocephalic, atraumatic, pupils equal round, EOMI, mucous membranes moist. Cardiovascular: Heart has regular rate and rhythm, no murmur appreciated, non-tachycardic. Respiratory: Respirations appear even and unlabored, lung sounds with diminished air flow, rales bilaterally, no wheezing. No cough during exam. GI: Thin, scaphoid abdomen. Normal active bowel sounds, abdomen is soft, nondistended, nontender on palpation. Extremities: Muscle atrophy noted of all 4 extremities, thin, moves extremities freely. No edema noted. Objective Objective Clinical Data: Abnormal lab results 02/08/20 Range/Units 06:25 WBC 22.49 H (4.4-10.8) 10^3/uL MCH 26.1 L (27.0-33.0) pg MCHC 31.0 L (32.0-36.0) % RDW 16.0 H (11.7-14.6) % Absolute Neutrophils 18.42 H (1.2-6.7) 10^3/uL Absolute Monocytes 1.35 H (0.1-0.8) 10^3/uL Vital Signs Temperature 37.1 C 02/08/20 07:15 Temperature Source Tympanic 02/08/20 07:15 Pulse 88 02/08/20 11:28 Pulse Rhythm Regular 02/08/20 08:55 Respiratory Rate 18 02/08/20 11:28 Respiratory Effort 02/08/20 08:55 Respiratory Depth Shallow 02/08/20 08:55 Respiratory Pattern Normal 02/08/20 08:55 Blood Pressure 126/81 02/08/20 07:15 Pulse Oximetry 99 02/08/20 11:28 Oxygen Delivery Method Room Air 02/08/20 11:26 Oxygen Flow Rate 0 02/08/20 11:26 Pain Level 6 02/08/20 12:04 Comment 02/08/20 03:35 Intake & Output 02/07/20 02/08/20 02/08/20 23:59 11:59 23:59 Intake Total 240 / 240 600 / 600 Output Total 200 / 200 1250 / 1250 Balance 40 / 40 -650 / -650 Weight 32 kg 31.3 kg Intake: Oral 240 / 240 600 / 600 Output: Urine 200 / 200 1250 / 1250 Other: Urine Color Yellow Yellow Urine Appearance Clear Cloudy Urine Odor Normal Comment Pt urinated on toilet. Stool Size Moderate Stool Characteristics Soft Formed Voiding Methods Toilet Laboratory Results WBC 22.49 10^3/uL (4.4-10.8) H 02/08/20 06:25 RBC 4.59 10^6/uL (3.93-5.22) 02/08/20 06:25 Hgb 12.0 g/dL (11.2-15.7) 02/08/20 06:25 Hct 38.7 % (36.0-46.0) 02/08/20 06:25 MCV 84.3 fL (80-95) 02/08/20 06:25 MCH 26.1 pg (27.0-33.0) L 02/08/20 06:25 MCHC 31.0 % (32.0-36.0) L 02/08/20 06:25 RDW 16.0 % (11.7-14.6) H 02/08/20 06:25 Plt Count 348 10^3/uL (130-400) D 02/08/20 06:25 MPV 9.9 fL (8.0-11.0) 02/08/20 06:25 Immature Gran % 1.0 02/08/20 06:25 Neutrophils % 81.9 02/08/20 06:25 Lymphocytes % 10.2 02/08/20 06:25 Monocytes % 6.0 02/08/20 06:25 Eosinophils % 0.7 02/08/20 06:25 Basophils % 0.2 02/08/20 06:25 Nucleated RBC % 0 % 02/08/20 06:25 Absolute Neutrophils 18.42 10^3/uL (1.2-6.7) H 02/08/20 06:25 Absolute Lymphocytes 2.29 10^3/uL (1.2-3.4) 02/08/20 06:25 Absolute Monocytes 1.35 10^3/uL (0.1-0.8) H 02/08/20 06:25 Absolute Eosinophils 0.16 10^3/uL (0.0-0.7) 02/08/20 06:25 Absolute Basophils 0.04 10^3/uL (0.0-0.2) 02/08/20 06:25
--- NOTE | 2020-02-08 14:13 | CMPROGNOTE_ITS ---
- If Service Date Differs Date of service: 02/08/20 Time of Service: 14:13 Care Management Progress Note S/O: Kira was agitated today and CM was called by Kira to talk about her desire to return home today, before her goals have been met. She was very concerned about her house, as she has not been able to reach her neighbor today, and when she attempted to call her a middle aged man answered. CM visited Kira in her room, she was sitting in her chair fully dressed in her own clothes. CM asked about calling her neighbor together, which she agreed to. When making the call, CM noticed that some of the numbers stuck, so there is concern that Kira may have accidentally dialed the wrong number. Kira was able to talk to her neighbor, Florence, who calmed her down. She agreed to stay at [facility] at least through the weekend to work toward her goals. CM will continue to follow. A: Kira is a 64 year old female admitted to [facility] on 01/30/20 for COPD, Pneumonia. P: Kira remains at [facility] on [address] for short term rehab with goals to gain strength, maneuver her 6 steps into her home, become more independent with ADL's, and coordinate care in the home. Her [employer] application has been submitted on 02/05/20 by ELIZABETH. Once she has met her goals, determined and evaluated by the care team, she will return home with RN, PT, OT, RADIOLOGICAL METALLURGIST. She will need a last dose letter for DEANNA. She will follow up with her PCP and discharge plan of care. CM will continue to follow and support discharge planning considerations.
[2020-02-08] MEDS: Normal Saline Flush 10 ML SYR IVP (19:32)
[2020-02-08] MEDS: Gabapentin 300 MG CAP PO (21:06)
[2020-02-08] MEDS: LIDOCAINE Patch Removal 2 EACH TP (21:07)
--- NOTE | 2020-02-09 | DI.RAD_ITS ---
EXAM: XR PORTABLE CHEST AP CLINICAL HISTORY: leucocytosis TECHNIQUE: 2D digital imaging was performed. COMPARISON: CR XR PORTABLE CHEST AP from 02/01/2020 CR XR PORTABLE CHEST AP from 02/01/2020 CR XR CHEST 2V PA LATERAL from 02/05/2020 FINDINGS: MEDIASTINUM: Normal. HEART: Normal. PULMONARY VASCULATURE: Normal. LUNGS: Patchy bilateral pulmonary opacities. No significant change compared to the prior examination . PLEURAL SPACE: No pleural effusion or pneumothorax. BONE:Old healed right rib fractures. OTHER FINDINGS:Normal. IMPRESSION: Bilateral patchy opacities which may represent multifocal pneumonia. DATA REPOSITORY: RADIATION DOSE DELIVERED:
[2020-02-09 00:01] VITALS: BP 116/74; PULSE 72; RESP 15; TEMP 36.8; O2SAT 96
[2020-02-09] MEDS: Normal Saline Flush 10 ML SYR IVP ×2 (04:54→20:08)
[2020-02-09] MEDS: Ondansetron 4 MG/2 ML VIAL IVP ×2 (04:54→20:08)
[2020-02-09] MEDS: Albuterol/Ipratropium 3 ML UPD VIAL UPD (06:14)
[2020-02-09 07:30] VITALS: BP 124/81; PULSE 83; RESP 16; TEMP 38.6; O2SAT 96
[2020-02-09 07:39] LABS: Abs Immature Grans 0.25 10^3/uL (0.0-0.06); Absolute Lymphocyte Count 2.57 10^3/uL (1.2-3.4); Absolute Monocyte Count 1.63 10^3/uL (0.1-0.8); Basophils % 0.2; Eosinophils % 0.9; HCT 35.1 % (36.0-46.0); HGB 11.4 g/dL (11.2-15.7); Lymphocytes % 10.4; MCH 26.7 pg (27.0-33.0); MCHC 32.5 % (32.0-36.0); MCV 82.2 fL (80-95); Monocytes % 6.6; Neutrophils % 80.9; Nucleated RBC 0 %; Platelet Count 369 10^3/uL (130-400); RBC 4.27 10^6/uL (3.93-5.22); RDW-SD 47.9 fL; WBC 24.69 10^3/uL (4.4-10.8)
[2020-02-09 07:43] LABS: Absolute Basophil Count 0.05 10^3/uL (0.0-0.2); Absolute Eosinophil Count 0.22 10^3/uL (0.0-0.7); Absolute Neutrophil Count 19.97 10^3/uL (1.2-6.7)
[2020-02-09 08:03] LABS: Diff Comment Diff Reviewed; RBC Morphology Normal
[2020-02-09] MEDS: Magnesium Oxide 400 MG TAB PO ×2 (09:04→20:11)
[2020-02-09 09:05] VITALS: O2SAT 91
[2020-02-09] MEDS: predniSONE 10 MG TAB PO (09:05)
[2020-02-09] MEDS: buPROPion-XL 150 MG TABCR 300 MG PO (09:05)
[2020-02-09] MEDS: Spironolactone 25 MG TAB 50 MG PO ×2 (09:05→20:11)
[2020-02-09] MEDS: Lisinopril 10 MG TAB PO (09:05)
[2020-02-09] MEDS: Pantoprazole 20 MG TABCR PO (09:05)
[2020-02-09] MEDS: Omeprazole 20 MG CAPCR 40 MG PO (09:06)
[2020-02-09] MEDS: Senna TAB 1 TAB PO ×2 (09:06→20:11)
[2020-02-09] MEDS: Aspirin E.C. 81 MG TABEC PO (09:06)
[2020-02-09] MEDS: dilTIAZem 60 MG TAB PO ×3 (09:06→20:11)
[2020-02-09] MEDS: Enoxaparin 30 MG/0.3 ML SYR SC (09:07)
[2020-02-09] MEDS: Polyethylene Glycol 3350 17 GM PACKET PO (09:07)
[2020-02-09] MEDS: Nicotine 14 MG/24 HR PATCH TD (09:07)
--- NOTE | 2020-02-09 09:17 | DI.VRAD_ITS ---
PROCEDURE INFORMATION: Exam: XR Chest, 1 View Exam date and time: 02/09/2020 8:50 AM Age: 64 years old Clinical indication: Other: Leukocytosis TECHNIQUE: Imaging protocol: XR of the chest Views: 1 view. COMPARISON: CR XR CHEST 2V PA LATERAL 02/05/2020 8:24 AM FINDINGS: Lungs: Diffuse bilateral patchy opacities may represent multifocal pneumonia. Pleural space: Unremarkable. No pleural effusion. No pneumothorax. Heart/Mediastinum: Stable cardiac silhouette Bones/joints: Healed right rib fractures IMPRESSION: Diffuse bilateral patchy opacities may represent multifocal pneumonia. Dictated and Authenticated by: Cathryn Garcia MD. Ordering:RADHA Ernst MD
--- NOTE | 2020-02-09 09:22 | PT.INNT ---
Date of service: 02/09/20 Time of Service: 08:30 PT Notes Visit Reasons: COPD CACHEXIA, GENERALIZED WEAKNESS, AMBULATORY BRIONNA Malone refuses PT again today. She became quite angry with me for suggesting walking and stair negotiation. Reminded her about her goals that were set for her. She understood, however reports being sore and refuses to get OOB. Will check in with her tomorrow.
[2020-02-09] MEDS: Budesonide 0.25 MG/2 ML UPD VIAL UPD ×2 (10:40→20:10)
[2020-02-09] MEDS: Lidocaine 5% Patch 2 PATCH TP (10:45)
[2020-02-09] MEDS: Methadone Liquid 10 MG/ML 30 MG PO (12:18)
[2020-02-09 16:46] VITALS: BP 108/66; PULSE 78; RESP 16; TEMP 37.3; O2SAT 91
[2020-02-09 18:59] LABS: Bilirubin Negative (Negative); Blood Negative (Negative); Clarity Clear (Clear); Glucose Negative (Negative); Ketones Negative (Negative); Leukocyte Esterase Moderate (Negative); Nitrite Negative (Negative); Urobilinogen 0.2 EU/dL (Up TO 0.2); pH 7.5 (5-8)
[2020-02-09 19:20] VITALS: BP 114/74; PULSE 80; RESP 18; TEMP 36; O2SAT 93
[2020-02-09] MEDS: Gabapentin 300 MG CAP PO (20:15)
[2020-02-09 20:20] LABS: Bacteria Negative HPF (Negative); C & S Indicated? No/Sq. Contamination; Casts Negative LPF (Negative); Crystals Negative HPF (Negative); Epithelial Cells Many HPF (Negative); Mucus Negative (Negative); Other Cells Few Yeast (Negative); RBC Negative HPF (0-2)
[2020-02-09] MEDS: LIDOCAINE Patch Removal 2 EACH TP (22:25)
[2020-02-10] MEDS: Ondansetron 4 MG/2 ML VIAL IVP (04:27)
[2020-02-10 05:10] VITALS: BP 117/73; PULSE 80; RESP 19; TEMP 36.7; O2SAT 96
[2020-02-10] MEDS: Albuterol/Ipratropium 3 ML UPD VIAL UPD (06:05)
[2020-02-10 07:29] VITALS: BP 145/84; PULSE 82; RESP 20; TEMP 36.7; O2SAT 96
[2020-02-10] MEDS: Nicotine 14 MG/24 HR PATCH TD (08:01)
[2020-02-10] MEDS: buPROPion-XL 150 MG TABCR 300 MG PO (08:02)
[2020-02-10] MEDS: dilTIAZem 60 MG TAB PO (08:02)
[2020-02-10] MEDS: Spironolactone 25 MG TAB 50 MG PO (08:02)
[2020-02-10] MEDS: Pantoprazole 20 MG TABCR PO (08:02)
[2020-02-10] MEDS: Magnesium Oxide 400 MG TAB PO (08:02)
[2020-02-10] MEDS: Senna TAB 1 TAB PO (08:03)
[2020-02-10] MEDS: Lisinopril 10 MG TAB PO (08:03)
[2020-02-10] MEDS: Aspirin E.C. 81 MG TABEC PO (08:03)
[2020-02-10] MEDS: Enoxaparin 30 MG/0.3 ML SYR SC (08:03)
[2020-02-10] MEDS: predniSONE 10 MG TAB PO (08:03)
[2020-02-10] MEDS: Polyethylene Glycol 3350 17 GM PACKET PO (08:04)
[2020-02-10] MEDS: Methadone Liquid 10 MG/ML 30 MG PO (10:22)
[2020-02-10] MEDS: Lidocaine 5% Patch 2 PATCH TP (10:23)
--- NOTE | 2020-02-10 11:44 | PT.INNT ---
Date of service: 02/10/20 Time of Service: 08:45 PT Notes Visit Reasons: COPD CACHEXIA, GENERALIZED WEAKNESS, AMBULATORY DY This place is driving me nuts. You are not making me do anything today. Kira refuses PT yet again today. I reviewed her goals with her again and she states she doesn't care, she's not doing anything today. Will check in with her tomorrow.
--- NOTE | 2020-02-10 12:44 | DSE_ITS ---
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 Odonnell admitted to m/s for bilater pleuralicies, ambulatory dysfunctions and FTT. She was on SB 1 for PT to increase function and mobility to be discharged home when ready. She has refused to work with PT the last 2 days. Prior to this PT did not feel she was able to go home due to inability to walk up stairs on her own, she was still requiring assist, in fact they suggested SNIF vs home with PT when ready. However Prabha is refusing to stay, she understands the risks taking by going home and has chosen to leave AMA. Home Meds and New Rx's Prescriptions: Continued omeprazole 20 mg capsule,delayed release(DR/EC) 40 mg PO DAILY Qty: 60 RF: 3 lisinopril 10 mg tablet 10 mg PO DAILY Qty: 90 RF: 3 bupropion HCl 300 mg tablet extended release 24 hr 300 mg PO DAILY Qty: 90 RF: 3 Hold Instructions: Pt Stopped/Never Started spironolactone 25 mg tablet 50 mg PO BID Qty: 120 RF: 3 aspirin 81 mg Tablet,Delayed Release (Dr/Ec) 81 mg PO DAILY Qty: 30 RF: 0 magnesium chloride [Mag 64] 64 mg tablet,delayed release (DR/EC) 500 mg PO BID RF: 0 No Action ipratropium-albuterol 0.5 mg-3 mg(2.5 mg base)/3 mL solution for nebulization 3 ml UPD Q6H PRN PRN (Reason: shortness of breath or wheezing) Qty: 90 RF: 3 cholecalciferol (vitamin D3) 2,000 unit capsule 2,000 unit PO DAILY RF: 0 Ensure Original 0.04-1.05 gram-kcal/mL liquid See Rx Instructions PO BID Qty: 237 RF: 3 haloperidol lactate 2 mg/mL concentrate 0.5 mg PO TID MDD 1.5 mg PRN (Reason: nausea and vomiting) Qty: 15 RF: 0 methadone 10 mg/mL concentrate 30 mg PO DAILY RF: 0 (DME) compressor, for nebulizer device See Dose Instructions .ROUTE .MEDSUPPLY Qty: 1 RF: 0 ondansetron 4 mg tablet,disintegrating 4 mg PO Q8H PRN (Reason: nausea and vomiting) Qty: 30 RF: 3 hydroxyzine HCl 50 mg tablet 50 mg PO QID PRN (Reason: itching/anxiety) Qty: 60 RF: 3 prednisone 20 mg tablet 40 mg PO DAILY Qty: 8 RF: 0 triamcinolone acetonide 15 GM cream 1 lorraine Topical TID PRNQty: 30 RF: 2 Breo Ellipta 200-25 mcg/dose blister with device 1 inh IH DAILY Qty: 60 RF: 3 mirtazapine 30 mg tablet 30 mg PO HS Qty: 30 RF: 11 scopolamine base 1 mg over 3 days patch 3 day 1 patch TD Q3D Qty: 10 RF: 1 gabapentin 300 mg capsule 300 mg PO TID Qty: 90 RF: 3 furosemide 20 mg Tablet 40 mg PO BID RF: 0 nicotine 14 mg/24 hr Patch 24 Hour 14 mg transdermal DAILY Qty: 30 RF: 1 polyethylene glycol 3350 17 gram Powder In Packet 17 g PO DAILY PRN PRN (Reason: Constipation) Qty: 510 RF: 0 docusate sodium [Colace] 100 mg Capsule 100 mg PO TID PRN PRNQty: 30 RF: 0 albuterol sulfate [Ventolin HFA] 90 mcg/actuation HFA aerosol inhaler 2 puff INHALATION BID RF: 0 Refresh Tears 0.5 % Drops 1 drp ophthalmic (eye) DIRECTED RF: 0 prednisone 20 mg tablet See Rx Instructions .ROUTE .COMPLEX Qty: 12 RF: 0 doxycycline hyclate 100 mg tablet 100 mg PO BID 7 Days Qty: 14 RF: 0 amoxicillin-pot clavulanate [Augmentin] 875-125 mg tablet 1 tab PO BID 10 Days Qty: 20 RF: 0 DS: Summary Status at Discharge Functional status at discharge: uses cane/walker Overall status at discharge: patient is not back to baseline Mental Status: mental status grossly normal Speech and Movement: speech and movement normal Mood: anxious mood Affect: normal affect Exam Psych Mental Status: mental status grossly normal Speech and Movement: speech and movement normal Mood: anxious mood Affect: normal affect DS: Data Vitals/I&O Vitals and I&O: Vital Signs Temperature 36.7 C 02/10/20 07:29 Temperature Source Temporal Artery Scan 02/10/20 07:29 Pulse 82 02/10/20 07:29 Pulse Rhythm Regular 02/10/20 09:45 Respiratory Rate 20 02/10/20 07:29 Respiratory Effort 02/10/20 09:45 Respiratory Depth Normal 02/10/20 09:45 Respiratory Pattern Normal 02/10/20 09:45 Blood Pressure 145/84 H 02/10/20 07:29 Pulse Oximetry 96 02/10/20 07:29 Oxygen Delivery Method Room Air 02/10/20 07:29 Oxygen Flow Rate 0 02/10/20 07:29 Pain Level 10 02/10/20 10:22 Comment 02/08/20 03:35 Intake & Output 02/09/20 02/10/20 02/10/20 23:59 11:59 23:59 Intake Total 480 / 480 490 / 490 Output Total 875 / 1475 550 / 550 Balance -395 / -995 -550 / -60 490 / -60 Intake: Oral 480 / 480 490 / 490 Output: Urine 875 / 1475 550 / 550 Other: Urine Color Yellow Pale Yellow Urine Appearance Clear Clear Urine Odor Strong Normal Stool Occult Blood Negative Stool Size Moderate Stool Characteristics Soft Brown Voiding Methods Toilet Toilet Data Completed and Pending Labs on day of discharge: Labs from last 24 hours 02/09/20 18:05 Urine Color Yellow Urine Clarity Clear Urine pH 7.5 Ur Specific [place] 1.020 Urine Protein Negative Urine Ketones Negative Urine Blood Negative Urine Nitrite Negative Urine Bilirubin Negative Urine Urobilinogen 0.2 Ur Leukocyte Esterase Moderate H Urine RBC Negative Urine WBC 10-20 H Ur Epithelial Cells Many Urine Crystals Negative Urine Bacteria Negative Urine Casts Negative Urine Mucus Negative Urine Other Few yeast Ur Culture Indicated? No/sq. contamination Urine Glucose Negative [facility] Medical History Abnormal CT of the chest (Acute 03/18/17) stable 2mm nodule in AILY[facility] Annual Chest CT for lung cancer screening recommended Acute renal failure (Resolved 04/29/14) a. creatinine bumped from 0.8 to 2.9 b. h/o renal failure 06/2013, presented with creatinine 5.4, which normalized with IV fluids Acute right-sided low back pain without sciatica (Chronic 06/08/17) Pain rad thru buttock, but not down leg. Priformis Syndr? [ ] PT [ ] Hx Pain Clinic (Injctn #1 helped, #2 did not). Occasional relief from SOMA. Trial GABAPENTIN 06/09/18.in past Anxiety and depression (Chronic) Bilateral pneumonia (Acute 04/29/14) A. Bilateral lower lobes Biliary colic (Inactive) Cirrhosis Cirrhosis of liver (Chronic) a. History of Hep C treatment. b. Liver biopsy 2005 positive for cirrhosis. 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 AFP levels every six months and ruq US every 12 months COPD (chronic obstructive pulmonary disease) (Chronic) Ongoing tobacco use. COPD (chronic obstructive pulmonary disease) (Chronic) COPD with acute exacerbation (Inactive) Diabetes (Chronic) On Metformin. Diabetes mellitus DNI (do not intubate) (Acute) Essential hypertension (Chronic) Well maintained, meds tolerated. Hepatitis C HTN (hypertension) Hypertension (Chronic) Mass of upper extremity (Inactive 12/21/13) Methadone dependence (Chronic) Nausea & vomiting (Resolved) Neuropathy of right radial nerve (Chronic) a. recently had multiple falls and a hematoma around her humerus b. resolving Pleuritic chest pain (Resolved 04/29/14) a. left sided POLST (Physician Orders for Life-Sustaining Treatment) (Chronic) DNR/DNI Polysubstance abuse (Chronic) a. h/o opiate overdose 06/2013 and 11/2013 b. recently started in [facility] program 03/13/2014 on oral methadone (missed her dose today) Shortness of breath (Acute) Spinal stenosis (Chronic) a. MRI 10/2009, showed L4-5 narrowing Tobacco abuse (Chronic) Tobacco use disorder Tubular adenoma of colon (Inactive) Varices of esophagus determined by endoscopy (Acute) Surgical History Appendectomy (01/30/07) H/O: hysterectomy (Chronic) History of ankle surgery (Acute) left S/P bilateral breast lumpectomy (Acute) Family History Mother Myocardial infarction Stroke Sister Diabetes Myocardial infarction Sister Diabetes Father Diabetes Alcohol abuse Myocardial infarction Social History Smoking/Tobacco Use Status: Current every day Tobacco Type: cigarettes Smoking packs per day: 1 Smoking cigarettes per day: 20.0 Years smoked: 40 Smoking pack- years: 40.00 Quit status: considering quitting Counseling given: other Details: pt feels motivated and states she doesnt enjoy them now Alcohol Intake: never Drug use: Current Sobriety Substance use type: heroin Details: on [facility] clinic Adopted: No Household members: none Housing: house Communication Needs: None Pets and animals: Yes Pets and animals: cat(s) What is your relationship status?: Panel score (0-1 are the most socially isolated patients): 0 What type of physical activity do you participate in: none Seatbelt use: always 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
--- NOTE | 2020-02-11 07:11 | OTDS_ITS ---
Date of service: 02/11/20 Time of Service: 07:11 Occupational Therapy Notes Inpatient Occupational [place] [facility] [place] Discharge Summary Date: 02/11/20 Referring Doctor:Jelani Lopez MD OT Orders: Non-Urgent, Extended Stay- weakness Precautions: Fall, standard, DNR/DNI *This document serves as a summary of care, no skilled occupational therapy services provided for this documentation on this date* PATIENT PROFILE/ADMITTING DIAGNOSIS: Pt is a 64 year old female who presented to the ER with shortness of breath. She was admitted for d/x of cachexia, COPD exacerbation and pneumomediastinum. Past Medical History- Abnormal CT of the chest (Acute 03/18/17) stable 2mm nodule in [facility]ILY[facility] Annual Chest CT for lung cancer screening recommended Acute renal failure (Resolved 04/29/14) a. creatinine bumped from 0.8 to 2.9 b. h/o renal failure 06/2013, presented with creatinine 5.4, which normalized with IV fluids Acute right-sided low back pain without sciatica (Acute 06/08/17) Pain rad thru buttock, but not down leg. Priformis Syndr? [ ] PT [ ] Hx Pain Clinic (Injctn #1 helped, #2 did not). Occasional relief from SOMA. Trial GABAPENTIN 06/09/18.in past Anxiety and depression (Chronic) Bilateral pneumonia (Acute 04/29/14) A. Bilateral lower lobes Biliary colic (Inactive) Cirrhosis Cirrhosis of liver (Chronic) a. History of Hep C treatment. b. Liver biopsy 2005 positive for cirrhosis. 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 AFP levels every six months and ruq US every 12 months COPD (chronic obstructive pulmonary disease) (Chronic) Ongoing tobacco use. COPD (chronic obstructive pulmonary disease) (Chronic) Diabetes (Chronic) On Metformin. Diabetes mellitus DNI (do not intubate) (Acute) Essential hypertension (Chronic) Well maintained, meds tolerated. Hepatitis C HTN (hypertension) Hypertension (Chronic) Methadone dependence (Chronic) Nausea & vomiting (Acute) Neuropathy of right radial nerve (Chronic) a. recently had multiple falls and a hematoma around her humerus b. resolving Pleuritic chest pain (Acute 04/29/14) a. left sided POLST (Physician Orders for Life-Sustaining Treatment) (Acute) Polysubstance abuse (Chronic) a. h/o opiate overdose 06/2013 and 11/2013 b. recently started in [facility] program 03/13/2014 on oral methadone (missed her dose today) Shortness of breath (Acute) Spinal stenosis (Chronic) a. MRI 10/2009, showed L4-5 narrowing Tobacco abuse (Chronic) Tobacco use disorder Varices of esophagus determined by endoscopy (Acute) Social History/Home Situation: Pt lives alone in a trailer in [place] and refers to herself as a . She states that she does not drive and utilizes RCT for community mobility. She has a walk in shower which she states that she has grab bars, shower bench, raised toilet seat but she also reports that she has not put these together yet. She has meals on wheels for her meals which she likes, she gets a ride to the grocery store and requires (A) with carrying in her bags which she has a neighbor who (A) with this at times. She attends the [facility] program in the mornings and reports that she has [employer], a cell phone and uses a cane at baseline. She states that she does not feel like she is at her baseline level of function but has had HH in the past for PT which she states she only had him come twice because she did not enjoy. Equipment owned/DME: Cane, raised toilet seat, grab bars, shower bench, oxygen 2 liters SUBJECTIVE: NT OBJECTIVE: From Dates of service of initial consult on 02/08/20 ROM: RUE AROM WFL L UE AROM WFL STRENGTH: RUE Shoulder flexion 4/5, bicep 3+/5, tricep 4-/5, oil and gas lease pumper is symmetrical LUE Shoulder flexion 4/5, bicep 4/5, tricep 4-/5, oil and gas lease pumper is symmetrical SENSATION: Intact (B) UE FUNCTIONAL MOBILITY/ADLS: Sit-stand CGA, FWW Stand-sit CGA, FWW Sink-Chair CGA, FWW BATHING Standing at sink with FWW with max (A) Set up/min (A) clean up pt was ( I) with face, (B) UE, nette area and (B) LE to knees. Denies hair and (B) feet. DRESSING Sitting in chair with min vc (I) doff hospital gown, (I) manjula sweatshirt, (I) doff underwear, min (A) donning, (I) don and doff (B) socks with min vc and with min (A) manjula (B) shoes. Pt required increased performance time and multiple breaks due to breathing. Min (A) donning pants and getting foot into leg hole. GROOMING standing at sink with FWw and min vc for standing position (I) with brushing teeth TOILETING on toilet with min vc (I) with toileting hygiene BALANCE: Static sitting Normal Dynamic Sitting Normal Static standing Good Dynamic Standing Good ASSESSMENT: Patient is a 64-year-old female referred to occupational therapy services with diagnosis of cachexia, COPD exacerbation and pneumomediastinum. Patient presents with clinical signs and symptoms consistent with dx, as demonstrated by the following impairment level findings/ functional limitations: Impairment in ADL/IADL and leisure activities, decreased functional activity tolerance, decreased functional mobility required for ADL/IADL, decreased breathing with functional activities/ADL/IADL routines. Pt was seen for initial consult only under [facility] [place] before she left AMA. GOALS- Not met at pt was seen for OT consult only. 1. Transfers with FWW (I) 2. Dressing in seated able to (I) don and doff pants, socks and shirt with good technique with 1-2 breaks for breathing 3. Bathing standing at sink (I) with UE/LE with 1-2 breaks and (I) demonstration of energy conservation techniques 4. Toileting on toilet (I) able to demonstrate this 2x 5. Eating (I) 6. Grooming Standing at sink (I) with brushing hair and teeth with 1-2 breaks for breathing PLAN OF CARE/TREATMENT PLAN: Discharge from OT services. Pt left AMA on 02/08/20. DISCHARGE RECOMMENDATIONS Based on pts current level of function OT recommends that pt have a FWW for functional mobility to increase pts stability and safety with her ADL routines and OT feels that pt would benefit from returning home with increased HH services to (A) pt with her ADLs/IADLs vs. LTC. TREATMENT TIME/MINUTES/CODES N/A Thu Mazariegos, OTR/L [facility]
--- NOTE | 2020-02-11 17:30 | PT.INDS ---
Date of service: 02/11/20 PT Notes Visit Reasons: COPD CACHEXIA, GENERALIZED WEAKNESS, AMBULATORY DY PT Inpatient Discharge Summary Date: 02/11/2020 Dates of service: 02/03/2020 through 02/10/2020 Referring Doctor: Dr. Lopez PT Orders: PT CONSULT: treat generalized weakness from respiratory cachexia Precautions: fall, standard Patient Profile/Admitting Diagnosis: Patient admitted from ER, where she presented with shortness of breath. She was admitted for management of cachexia, COPD exacerbation and pneumomediastinum. She has been transferred to swing bed status PMHX: Abnormal CT of the chest (Acute 03/18/17) stable 2mm nodule in AILY[facility] Annual Chest CT for lung cancer screening recommended Acute renal failure (Resolved 04/29/14) a. creatinine bumped from 0.8 to 2.9 b. h/o renal failure 06/2013, presented with creatinine 5.4, which normalized with IV fluids Acute right-sided low back pain without sciatica (Acute 06/08/17) Pain rad thru buttock, but not down leg. Priformis Syndr? [ ] PT [ ] Hx Pain Clinic (Injctn #1 helped, #2 did not). Occasional relief from SOMA. Trial GABAPENTIN 06/09/18.in past Anxiety and depression (Chronic) Bilateral pneumonia (Acute 04/29/14) A. Bilateral lower lobes Biliary colic (Inactive) Cirrhosis Cirrhosis of liver (Chronic) a. History of Hep C treatment. b. Liver biopsy 2005 positive for cirrhosis. 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 AFP levels every six months and ruq US every 12 months COPD (chronic obstructive pulmonary disease) (Chronic) Ongoing tobacco use. COPD (chronic obstructive pulmonary disease) (Chronic) Diabetes (Chronic) On Metformin. Diabetes mellitus DNI (do not intubate) (Acute) Essential hypertension (Chronic) Well maintained, meds tolerated. Hepatitis C HTN (hypertension) Hypertension (Chronic) Methadone dependence (Chronic) Nausea & vomiting (Acute) Neuropathy of right radial nerve (Chronic) a. recently had multiple falls and a hematoma around her humerus b. resolving Pleuritic chest pain (Acute 04/29/14) a. left sided POLST (Physician Orders for Life-Sustaining Treatment) (Acute) Polysubstance abuse (Chronic) a. h/o opiate overdose 06/2013 and 11/2013 b. recently started in [facility] program 03/13/2014 on oral methadone (missed her dose today) Shortness of breath (Acute) Spinal stenosis (Chronic) a. MRI 10/2009, showed L4-5 narrowing Tobacco abuse (Chronic) Tobacco use disorder Varices of esophagus determined by endoscopy (Acute) Social History/Home Situation: Patient lives independently in a trailer in [place]. She has 5-6 ORIN, which she states that she had no longer been able to manage in the days preceding her admission. She has a cane that she uses intermittently. She admits that she's had difficulty ambulating the distance to her bathroom leading up to her admission. She has a neighbor who plans to stay with her for a couple weeks when she returns home. Equipment Owned/DME: cane Subjective: Patient continues to report feeling weak and short of breath when she moves. She is adamant about going home despite her level of mobility and breathlessness. Objective: General Observation: Resting in recliner just about to have breakfast. IV access in right UE. Mental Status: A&Ox3 ROM: Right Upper Extremity: WFL Left Upper Extremity: WFL Right Lower Extremity:WFL Left Lower Extremity: WFL Strength: Right Upper Extremity: Shoulder flexion 4/5. Biceps 4+/5. Triceps 4+/5 Left Upper Extremity: Shoulder flexion 4/5. Biceps 4+/5. Triceps 4+/5 Right Lower Extremity: Hip flexion 4/5. Quads 4+/5. Ankle DF 4/5. Left Lower Extremity: Hip flexion 4/5. Quads 4+/5. Ankle DF 4/5. Bed Mobility/Transfers: Supine to sit standby assist Sit to supine standby assist Sit to stand contact-guard assist Stand to sit contact-guard assist Bed to chair contact-guard assist Chair to bed contact-guard assist Gait: Is able to ambulate between 20 to 40 feet using front wheeled walker with contact-guard assist with mild to moderate breathlessness. She is able to tolerate up and down six 4 inch step while holding onto bilateral rails with minimal assist but with minimal to moderate breathlessness after activity. Balance: Static Sitting: good Dynamic Sitting: fair Static Standing: fair Dynamic Standing: fair Assessment: Barriers to achieving goals include low patient motivation as can be seen by successive refusal to PT services as documented in the treatment chart as well as decreased activity tolerance due to medical condition. Patient is a 64 year old female referred to physical therapy services with the diagnosis of cachexia, COPD exacerbation. Patient continues to present with clinical signs and symptoms consistent with mobility deficits related to a combination of acute medical issues and chronic underlying health conditions. She continues to demonstrate the following impairment level findings: 1. Decreased UE strength 2. Decreased LE strength 3. Decreased activity tolerance 4. increased risk for falls Impairments are continuing to contribute to the following functional limitations: 1. unable to tolerate household distance ambulation due to BROWN 2. unable to manage stairs 3. unable to independently transfer Goals: Goals X1 week 1. Sit-Stand: Independent NOT MET 2. Stand-Sit: Independent NOT MET 3. Bed-Chair: Supervision with FWW NOT MET 4. Chair-Bed: Supervision with FWW NOT MET 5. Gait: Supervision with FW W x300 feet NOT MET 6. Stairs: Min assist with single rail x6 steps NOT MET DISCHARGE RECOMMENDATIONS: Patient will benefit from half-way facility placement for continued skilled physical therapy services in order to progress mobility level, strength, and balance in preparation for a safe discharge to home. TREATMENT CODE/TIME: NC. Thank you for the opportunity to participate in the care of this patient. Lisa Baum PT, DPT, CLT [facility] [place], [place]
== END 2020-02-10 13:16 | disposition left against medical advice (07) | DRG 948 ==
PROVIDERS: Internal Medicine; Admitting Provider Internal Medicine; PCP Student in an Organized Health Care Education/Training Program; Visit Provider Internal Medicine
DX: R53.1 Weakness (principal); R64 Cachexia; Z68.1 Body mass index [BMI] 19.9 or less, adult; F11.20 Opioid dependence, uncomplicated; I85.00 Esophageal varices without bleeding; J84.10 Pulmonary fibrosis, unspecified; J43.1 Panlobular emphysema; R62.7 Adult failure to thrive; D72.829 Elevated white blood cell count, unspecified; M48.061 Spinal stenosis, lumbar region without neurogenic claudication; K74.69 Other cirrhosis of liver; F41.8 Other specified anxiety disorders; I10 Essential (primary) hypertension; G89.29 Other chronic pain; Z66 Do not resuscitate; R91.1 Solitary pulmonary nodule; Z86.19 Personal history of other infectious and parasitic diseases; E11.9 Type 2 diabetes mellitus without complications; Z79.84 Long term (current) use of oral hypoglycemic drugs; F17.210 Nicotine dependence, cigarettes, uncomplicated; G56.31 Lesion of radial nerve, right upper limb
CPT/HCPCS: 36415; 97162; 99232; 99306; NC; 71045; 81003; 81015; 85025; 94640; J1650; J2405; J3490; J7512; J7620; J7633; J9999

== ENCOUNTER 2020-02-16 16:18 | Inpatient (IN) | payer MEDICARE, MEDICAID, SELFPAY ==
[2020-02-16] VITALS (21 sets, daily range): BP systolic 96–139; BP diastolic 47–77; PULSE 71–113; RESP 6–22; TEMP 35–36.7; O2SAT 93–100
--- NOTE | 2020-02-16 16:15 | RT.EKG_ITS ---
APPROVED REPORT Exam: Resting ECG Patient Location: E HR:97 bpm ECG Measurements Heart Rate 97 AXIS MS 137 P 60 QRSd 82 QRS 34 QT 360 T 48 QTc 459 Conclusion Sinus rhythm...normal P axis, V-rate 60- [address] elevation, inferior leads...ST >0.06mV, II III aVF
--- NOTE | 2020-02-16 16:15 | DI.RAD_ITS ---
EXAM: XR CHEST 1V IN DI DEPT CLINICAL HISTORY: altered TECHNIQUE: 2D digital imaging was performed. COMPARISON: CR XR PORTABLE CHEST AP from 02/01/2020 CR XR CHEST 2V PA LATERAL from 02/05/2020 CR,XR XR PORTABLE CHEST AP from 02/09/2020 FINDINGS: Exam is severely limited. The patient was unable to follow instructions. Patient's head overlies th e majority of the left side of the chest. The cardiac silhouette is obscured. Severe underlying chr onic fibrotic changes are again noted. A focal area of increased density is noted at the right lung base. Findings could represent overlie in structures versus infiltrate. IMPRESSION: Severely limited exam. Question right lower lobe infiltrate.. DATA REPOSITORY: RADIATION DOSE DELIVERED:
--- NOTE | 2020-02-16 16:15 | DI.CT_ITS ---
EXAM: CT HEAD - STROKE PROTOCOL CLINICAL HISTORY: altered. TECHNIQUE: Imaging Protocol: Axial computed tomography images with coronal and sagittal reformatted images were created and reviewed COMPARISON: CT CT HEAD WO from 02/05/2020 FINDINGS: Ventricles and Extra axial spaces: Normal in size and morphology for the patient's age. Hemorrhage: None. Cerebral parenchyma: Mild atrophy. Mild white matter changes consistent with small vessel disease. Midline shift: None. Brainstem/Cerebellum: Normal. Calvarium: Chronic appearing skull deformity. Visualized Paranasal sinuses/Mastoids: Clear. IMPRESSION: No acute abnormality. RADIATION DOSE DELIVERED: Total DLP Total DLP DATA REPOSITORY: All CT scans at this facility are submitted to the National Radiology Data Registry (NRDR) Dose Index Registry (DIR) with the [employer] (ACR). RADIATION OPTIMIZATION: All CT scans at this facility use at least one of these dose optimization te chniques: automated exposure control; mA and/or kV adjustment per patient size (includes targeted exa ms where dose is matched to clinical indication); or iterative reconstruction.
[2020-02-16 16:38] LABS: BE (Venous) 4 mmol/L (-2-3); HCO3 (Venous) 32 mmol/L (23-28); O2 Sat (Venous) 68 %; TCO2 (Venous) 32 mmol/L (24-29); pO2 (Venous) 37 mmHg
[2020-02-16 16:40] LABS: HCT 37.7 % (36.0-46.0); HGB 11.3 g/dL (11.2-15.7); MCH 26.9 pg (27.0-33.0); MCV 89.8 fL (80-95); Nucleated RBC 0 %; Platelet Count 399 10^3/uL (130-400); RDW 16.4 % (11.7-14.6); RDW-SD 53.3 fL; WBC 23.25 10^3/uL (4.4-10.8)
[2020-02-16 16:43] LABS: pH (Venous) 7.14 (7.31-7.41)
[2020-02-16 16:44] LABS: pCO2 (Venous) 94 mmHg (41-51)
[2020-02-16 16:55] LABS: Prothrombin Time 10.1 sec (9.3-11.0)
[2020-02-16 17:00] LABS: ALT 55 U/L (14-59); AST 32 U/L (15-37); Alkaline Phosphatase 130 U/L (46-116); Anion Gap 2.1 mmol/L (3-11); BUN 30 mg/dL (7-18); Bilirubin, Total 0.2 mg/dL (0.2-1.0); CO2 33.9 mmol/L (21.0-32.0); CREATININE 0.61 mg/dL (0.55-1.02); Calcium 9.2 mg/dL (8.5-10.1); Chloride 102 mmol/L (98-107); Glucose 145 mg/dL (74-106); Magnesium 1.8 mg/dL (1.8-2.4); Potassium 4.9 mmol/L (3.5-5.1); Sodium 138 mmol/L (136-145); Total Protein 7.3 g/dL (6.4-8.2); Troponin I < 0.05 ng/mL (<0.06)
--- NOTE | 2020-02-16 17:11 | DI.VRAD_ITS ---
PROCEDURE INFORMATION: Exam: CT Head Without Contrast Exam date and time: 02/16/2020 4:39 PM Age: 64 years old Clinical indication: Altered mental status/memory loss TECHNIQUE: Imaging protocol: Computed tomography of the head without contrast. COMPARISON: CT HEAD WO 02/05/2020 1:57 PM FINDINGS: Brain: Mild cortical volume loss noted, unchanged. Scattered areas of decreased attenuation in the deep periventricular white matter consistent with small vessel ischemic change. No evidence for acute intracranial hemorrhage. Ventricles: Normal. No ventriculomegaly. Bones/joints: Unremarkable. No acute fracture. Sinuses: Visualized sinuses are unremarkable. No fluid levels. Mastoid air cells: Visualized mastoid air cells are well aerated. Soft tissues: Unremarkable. IMPRESSION: Early senescent changes noted. No acute intracranial abnormality. Dictated and Authenticated by: Dianne Shearer MD. Ordering:JARED Ramirez MD
[2020-02-16 17:16] LABS: Absolute Neutrophil Count 21.16 10^3/uL (1.2-6.7); Diff Comment Manual Differential; Hypochromasia 1+
[2020-02-16 17:17] LABS: Basophilic Stippling 1+
--- NOTE | 2020-02-16 17:23 | DI.VRAD_ITS ---
PROCEDURE INFORMATION: Exam: XR Chest, 1 View Exam date and time: 02/16/2020 4:45 PM Age: 64 years old Clinical indication: Other: AMS TECHNIQUE: Imaging protocol: XR of the chest Views: 1 view. COMPARISON: CR XR PORTABLE CHEST AP 02/09/2020 8:42 AM FINDINGS: Lungs: Limited exam due to patient's position which limits visualization of left lung. Visualized lungs demonstrate unchanged bilateral reticulonodular interstitial thickening, architectural distortion and traction bronchiectasis. There is new focal airspace opacity in right lower lung. There is no pleural effusion. Pleural space: See Lungs finding. Heart/Mediastinum: Unremarkable. No cardiomegaly. Bones/joints: Osseous structures are stable with moderate to marked dextroscoliosis. There are chronic fractures of bilateral ribs. Gastrointestinal tract: Below diaphragm, there is borderline dilated air-filled loop of large bowel in the mid to left lower quadrant. IMPRESSION: 1. Limited exam due to patient's position which limits evaluation of left side of the lung. 2. There is a new airspace opacity in right lower lung which might reflect pneumonia or infiltrate. 3. Stable bilateral reticulonodular interstitial opacities , part of which appears chronic due to chronic interstitial lung disease. 4. Chronic healed fractures of the bilateral ribs. Dictated and Authenticated by: Rocky Padilla MD. Ordering:JARED Ramirez MD
[2020-02-16 18:45] LABS: Bilirubin Negative (Negative); Blood Negative (Negative); Clarity Cloudy (Clear); Glucose Negative (Negative); Ketones Negative (Negative); Leukocyte Esterase Trace (Negative); Nitrite Negative (Negative); Specific Gravity 1.025 (1.005-1.025); Urobilinogen 0.2 EU/dL (Up TO 0.2)
[2020-02-16 18:48] LABS: *AMPHETAMINES SCREEN URINE Negative (Negative); *BARBITURATES SCREEN URINE Negative (Negative); *BENZODIAZEPINES SCREEN URINE Negative (Negative); Cannabinoids THC Negative (Negative); Cocaine Screen,Urine Negative (Negative); METHADONE URINE SCREEN POSITIVE (Negative); OPIATES URINE SCREEN Negative (Negative)
[2020-02-16 18:49] LABS: Tricyclic Antidepressants Negative (Negative)
[2020-02-16 19:09] LABS: Lactate 0.3 mmol/L (0.6-1.4)
[2020-02-16 19:21] LABS: RBC 0-2 HPF (0-2)
[2020-02-16 19:22] LABS: C & S Indicated? No/Sq. Contamination; Epithelial Cells Many HPF (Negative)
[2020-02-16 19:23] LABS: Bacteria Moderate HPF (Negative)
[2020-02-16] MEDS: CEFEPIME 2 GM in Normal Saline 100 ML IVPB (19:24)
--- NOTE | 2020-02-16 21:24 | HPE_ITS ---
Date of service: 02/16/20 Time of Service: 21:24 Assessment and Plan Assessment and plan (1) Respiratory failure: Status: Acute Assessment and plan: Patient is in hypercapnic respiratory failure. She h as agonal respirations. She does not want to be intubated or mechanically ventilated. Will give an attempt at BiPAP. If her unable to blow off some CO2 I suspect she will succumb to respiratory failure. The overall situation is quite dire. Attempted to reach her contacts, left messages. (2) Multifocal pneumonia: Status: Acute Assessment and plan: New infiltrates in the setting of multifocal pneumonia is on her chronic chest x-rays. She was just discharged from the hospital 02/10/2020. Likely hospital-acquired pneumonia. We will continue coverage with cefepime 2 g IV every 8 hours. In the setting of respiratory failure the overall situation is quite dire. (3) COPD (chronic obstructive pulmonary disease): Status: Chronic Assessment and plan: Advanced COPD. Patient still smokes 4 cigarettes a day. We will continue with p.o. steroids and updrafts as needed. Qualifiers: COPD type: emphysema Emphysema type: panlobular Qualified Code(s): J43.1 - Panlobular emphysema (4) Opioid dependence on agonist therapy: Status: Chronic Assessment and plan: Patient has been on methadone maintenance 30 mg daily. Per ER staff she took her dose this morning. We will try to avoid giving Narcan given the prospect of acute withdrawal. Were hoping the BiPAP will bring her around. The overall situation is very dire. History of Present Illness History of Present Illness Chief Complaint: Respiratory failure/multifocal pneumonia Narrative: This is a 64-year-old woman with advanced COPD, oxygen dependent, steroid dependent. She had a prolonged hospitalization in January 2020 for respiratory difficulties. She left AGAINST MEDICAL ADVICE to return to her home. She apparently was last seen well at 11 AM. She was later found by a physician practice manager with a respiratory rate of 4. She appeared to be listing to the left. She was transported to the emergency room by EMS. In the emergency room she was able to respond to questions. She was maintaining her sats at 98% on 2 L. A VBG showed pH 7.14 PCO2 of 94. A chest x-ray showed what appeared to be a new infiltrate in the right lower lobe. She has chronic lung changes consistent with multifocal pneumonia. Head CT showed no changes. Patient is a palliative care patient, DNR/DNI. She does not want advanced interventions. She is admitted to the [facility] floor, negative pressure, PGY. Will treat as hospital acquired pneumonia with cefepime 2 g IV every 8 hours. Upon arrival to the floor she was again obtunded with a respiratory rate of 6. BiPAP is being started. Review of Systems Narrative: Patient is lying quietly with a respiratory rate of 6. She would not respond to verbal stimuli or tactile stimuli. Review of systems was unobtainable. [facility] Medical History Abnormal CT of the chest (Acute 03/18/17) stable 2mm nodule in AILYN Annual Chest CT for lung cancer screening recommended Acute renal failure (Resolved 04/29/14) a. creatinine bumped from 0.8 to 2.9 b. h/o renal failure 06/2013, presented with creatinine 5.4, which normalized with IV fluids Acute right-sided low back pain without sciatica (Chronic 06/08/17) Pain rad thru buttock, but not down leg. Priformis Syndr? [ ] PT [ ] Hx Pain Clinic (Injctn #1 helped, #2 did not). Occasional relief from SOMA. Trial GABAPENTIN 06/09/18.in past Anxiety and depression (Chronic) Bilateral pneumonia (Acute 04/29/14) A. Bilateral lower lobes Biliary colic (Inactive) Cirrhosis Cirrhosis of liver (Chronic) a. History of Hep C treatment. b. Liver biopsy 2005 positive for cirrhosis. 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 AFP levels every six months and ruq US every 12 months COPD (chronic obstructive pulmonary disease) (Chronic) Ongoing tobacco use. COPD (chronic obstructive pulmonary disease) (Chronic) COPD with acute exacerbation (Inactive) Diabetes (Chronic) On Metformin. Diabetes mellitus DNI (do not intubate) (Acute) DNR (do not resuscitate) (Acute) Essential hypertension (Chronic) Well maintained, meds tolerated. Falls (Acute) Hepatitis C HTN (hypertension) Hypertension (Chronic) Mass of upper extremity (Inactive 12/21/13) Methadone dependence (Chronic) Nausea & vomiting (Resolved) Neuropathy of right radial nerve (Chronic) a. recently had multiple falls and a hematoma around her humerus b. resolving Pleuritic chest pain (Resolved 04/29/14) a. left sided POLST (Physician Orders for Life-Sustaining Treatment) (Chronic) DNR/DNI Polysubstance abuse (Chronic) a. h/o opiate overdose 06/2013 and 11/2013 b. recently started in [facility] program 03/13/2014 on oral methadone (missed her dose today) Shortness of breath (Acute) Spinal stenosis (Chronic) a. MRI 10/2009, showed L4-5 narrowing Tobacco abuse (Chronic) Tobacco use disorder Tubular adenoma of colon (Inactive) Varices of esophagus determined by endoscopy (Acute) Surgical History Appendectomy (01/30/07) H/O: hysterectomy (Chronic) History of ankle surgery (Acute) left S/P bilateral breast lumpectomy (Acute) Family History Mother Myocardial infarction Stroke Sister Diabetes Myocardial infarction Sister Diabetes Father Diabetes Alcohol abuse Myocardial infarction Social History Smoking/Tobacco Use Status: Current every day Tobacco Type: cigarettes Smoking packs per day: 1 Smoking cigarettes per day: 20.0 Years smoked: 40 Smoking pack- years: 40.00 Quit status: considering quitting Counseling given: other Details: pt feels motivated and states she doesnt enjoy them now Alcohol Intake: never Drug use: Current Sobriety Substance use type: heroin Details: on [facility] clinic Adopted: No Household members: none Housing: house Communication Needs: None Pets and animals: Yes Pets and animals: cat(s) What is your relationship status?: Panel score (0-1 are the most socially isolated patients): 0 What type of physical activity do you participate in: none Seatbelt use: always Drive intox or ride w/intox local city driver: No Working smoke detector in home: Yes Fire extinguisher in home: Yes Carbon monox detector in home: Yes Do you feel safe at home: Yes Do you feel safe in your relationship?: Yes Meds Home Medications and Allergies Home Medications Medication Instructions Recorded Confirmed Type triamcinolone acetonide 1 lorraine TOPICAL TID PRN #30 gm 09/07/17 02/16/20 History compressor, for nebulizer #1 each 09/28/18 02/07/20 Rx methadone 10 mg/mL oral concentrate 30 mg PO DAILY ml 09/28/18 02/16/20 History cholecalciferol (vitamin D3) 50 2,000 unit PO DAILY 01/24/19 02/16/20 History mcg (2,000 unit) capsule ipratropium 0.5 mg-albuterol 3 mg 3 ml UPD Q6H PRN PRN #90 ml 01/24/19 02/16/20 Rx (2.5 mg base)/3 mL nebulization soln lisinopril 10 mg tablet 10 mg PO DAILY #90 tab-cap 03/22/19 02/16/20 Rx aspirin 81 mg PO DAILY #30 tab 05/24/19 02/16/20 Rx fluticasone furoate 200 1 inh IH DAILY #60 each 07/06/19 01/28/20 Rx mcg-vilanterol 25 mcg/dose inhalation powder mirtazapine 30 mg tablet 30 mg PO HS #30 tab-cap 07/26/19 02/16/20 Rx bupropion HCl 300 mg 24 hr tablet, 300 mg PO DAILY #90 tab 08/16/19 02/16/20 Rx extended release food supplemt, lactose-reduced See Rx Instructions PO BID #237 ml 08/19/19 02/16/20 Rx 0.04 gram-1.05 kcal/mL oral liquid furosemide 40 mg PO BID 09/19/19 02/16/20 History spironolactone 25 mg tablet 50 mg PO BID #120 tab 10/16/19 02/16/20 Rx docusate sodium [Colace] 100 mg PO TID PRN PRN #30 cap 11/01/19 02/16/20 Rx nicotine 14 mg TRANSDERMAL DAILY #30 ea 11/01/19 02/16/20 Rx polyethylene glycol 3350 17 g PO DAILY PRN PRN #510 g 11/01/19 02/16/20 Rx haloperidol lactate 2 mg/mL oral 0.5 mg PO TID PRN #15 ml MDD 1.5 mg 11/30/19 02/16/20 Rx concentrate scopolamine base 1 mg over 3 days 1 patch TD Q3D #10 each 12/12/19 02/16/20 Rx transdermal patch hydroxyzine HCl 50 mg tablet 50 mg PO QID PRN #60 tab 01/18/20 02/16/20 Rx omeprazole 20 mg capsule,delayed 40 mg PO DAILY #60 cap 01/18/20 02/16/20 Rx release prednisone 20 mg tablet 40 mg PO DAILY #8 tab 01/18/20 02/16/20 Rx Refresh Tears 1 drp OPHTHALMIC (EYE) DIRECTED 01/23/20 02/16/20 History albuterol sulfate [Ventolin HFA] 2 puff INHALATION BID 01/23/20 02/16/20 History magnesium chloride [Mag 64] 500 mg PO BID 01/23/20 02/16/20 History prednisone See Rx Instructions .ROUTE 01/23/20 02/16/20 Rx .COMPLEX #12 tab gabapentin 300 mg capsule 300 mg PO TID #90 cap 02/06/20 02/16/20 Rx ondansetron 4 mg disintegrating 4 mg PO Q8H PRN #30 tab 02/13/20 02/16/20 Rx tablet Allergies Allergy/AdvReac Type Severity Reaction Status Date / Time gabapentin AdvReac Severe Nausea Verified 01/28/20 13:50 metaxalone [Metaxalone] AdvReac Severe nausea Verified 01/28/20 13:50 diclofenac [Diclofenac] AdvReac Intermediate contraindicated Verified 01/28/20 13:50 w/ pt's liver promethazine AdvReac Mild disoriented Verified 01/28/20 13:50 prochlorperazine AdvReac Unknown disoriented Verified 01/28/20 13:50 Exam Narrative Exam Narrative: On exam she is an extremely cachectic appearing woman. She has bruises in various dependent areas of her body. Her left ankle is notable for a hematoma that appears to be circumferential and soft. She is in the left lateral decubitus position. She is not responding to commands, verbal stimuli, tactile stimuli. Her lung exam shows very shallow and infrequent respirations. Lung sounds are very distant. No wheezes or rhonchi are heard. Her heart sounds are regular. There is no significant murmur. Her abdomen is rather extremely scaphoid and soft. The lower extremities show extreme muscle wasting. Neurologically she will open her eyes and I believe took a deep breath on command but then went back to very shallow and near agonal respirations. She is not making any spontaneous movements. Results Imaging Chest x-ray: report reviewed (Possible new right lower lobe infiltrate) Additional studies: Head CT showed no new abnormalities. Labs Result diagrams: 02/16/20 16:32 02/16/20 16:32 Labs: Laboratory Results - last 24 hr 02/16/20 02/16/20 02/16/20 16:32 16:32 16:32 WBC 23.25 H RBC 4.20 Hgb 11.3 Hct 37.7 MCV 89.8 MCH 26.9 L MCHC 30.0 L RDW 16.4 H Plt Count 399 MPV 9.0 Immature Gran % 0.0 Neutrophils % 91.0 Lymphocytes % 6.0 Monocytes % 3.0 Eosinophils % 0.0 Basophils % 0.0 Nucleated RBC % 0 Absolute Neutrophils 21.16 H Absolute Lymphocytes 1.40 Absolute Monocytes 0.70 Absolute Eosinophils 0.00 Absolute Basophils 0.00 RBC Morphology See below Hypochromasia 1+ Basophilic Stippling 1+ PT 10.1 INR 1.0 VBG pH VBG pCO2 VBG pO2 VBG HCO3 VBG Total CO2 VBG O2 Saturation VBG Base Excess VBG Lactate Sodium 138 Potassium 4.9 Chloride 102 Carbon Dioxide 33.9 H Anion Gap 2.1 L BUN 30 H Creatinine 0.61 Estimated GFR/1.73 m2 >= 60.00 Glucose 145 H Calcium 9.2 Magnesium 1.8 Total Bilirubin 0.2 AST 32 ALT 55 Alkaline Phosphatase 130 H Troponin I < 0.05 Total Protein 7.3 Albumin 3.0 L Urine Color Urine Clarity Urine pH Ur Specific [place] Urine Protein Urine Ketones Urine Blood Urine Nitrite Urine Bilirubin Urine Urobilinogen Ur Leukocyte Esterase Urine RBC Urine WBC Ur Epithelial Cells Urine Crystals Urine Bacteria Urine Mucus Ur Culture Indicated? Urine Glucose Urine Opiates Screen Urine Methadone Screen Ur Barbiturates Screen Ur Tricyclics Screen Ur Amphetamines Screen U Benzodiazepines Scrn Urine Cocaine Screen Ur THC Screen 02/16/20 02/16/20 02/16/20 16:32 18:23 18:23 WBC RBC Hgb Hct MCV MCH MCHC RDW Plt Count MPV Immature Gran % Neutrophils % Lymphocytes % Monocytes % Eosinophils % Basophils % Nucleated RBC % Absolute Neutrophils Absolute Lymphocytes Absolute Monocytes Absolute Eosinophils Absolute Basophils RBC Morphology Hypochromasia Basophilic Stippling PT INR VBG pH 7.14 L* VBG pCO2 94 H* VBG pO2 37 VBG HCO3 32 H VBG Total CO2 32 H VBG O2 Saturation 68 VBG Base Excess 4 H VBG Lactate Sodium Potassium Chloride Carbon Dioxide Anion Gap BUN Creatinine Estimated GFR/1.73 m2 Glucose Calcium Magnesium Total Bilirubin AST ALT Alkaline Phosphatase Troponin I Total Protein Albumin Urine Color Yellow Urine Clarity Cloudy Urine pH 6.0 Ur Specific [place] 1.025 Urine Protein 30 H Urine Ketones Negative Urine Blood Negative Urine Nitrite Negative Urine Bilirubin Negative Urine Urobilinogen 0.2 Ur Leukocyte Esterase Trace H Urine RBC 0-2 Urine WBC 5-10 Ur Epithelial Cells Many Urine Crystals Not Applicable Urine Bacteria Moderate Urine Mucus Not Applicable Ur Culture Indicated? No/sq. contamination Urine Glucose Negative Urine Opiates Screen Negative Urine Methadone Screen Positive A Ur Barbiturates Screen Negative Ur Tricyclics Screen Negative Ur Amphetamines Screen Negative U Benzodiazepines Scrn Negative Urine Cocaine Screen Negative Ur THC Screen Negative 02/16/20 19:00 WBC RBC Hgb Hct MCV MCH MCHC RDW Plt Count MPV Immature Gran % Neutrophils % Lymphocytes % Monocytes % Eosinophils % Basophils % Nucleated RBC % Absolute Neutrophils Absolute Lymphocytes Absolute Monocytes Absolute Eosinophils Absolute Basophils RBC Morphology Hypochromasia Basophilic Stippling PT INR VBG pH VBG pCO2 VBG pO2 VBG HCO3 VBG Total CO2 VBG O2 Saturation VBG Base Excess VBG Lactate 0.3 L Sodium Potassium Chloride Carbon Dioxide Anion Gap BUN Creatinine Estimated GFR/1.73 m2 Glucose Calcium Magnesium Total Bilirubin AST ALT Alkaline Phosphatase Troponin I Total Protein Albumin Urine Color Urine Clarity Urine pH Ur Specific [place] Urine Protein Urine Ketones Urine Blood Urine Nitrite Urine Bilirubin Urine Urobilinogen Ur Leukocyte Esterase Urine RBC Urine WBC Ur Epithelial Cells Urine Crystals Urine Bacteria Urine Mucus Ur Culture Indicated? Urine Glucose Urine Opiates Screen Urine Methadone Screen Ur Barbiturates Screen Ur Tricyclics Screen Ur Amphetamines Screen U Benzodiazepines Scrn Urine Cocaine Screen Ur THC Screen Last Vital Signs Temp 35 C L 02/16/20 21:00 Pulse 71 02/16/20 21:00 Resp 6 L 02/16/20 21:00 BP 102/65 02/16/20 21:00 Pulse Ox 93 L 02/16/20 21:00 COVID-19 Screening Have you,or household,traveled outside [place] in last 14 days?: No
--- NOTE | 2020-02-16 21:25 | W.ED.GENAD ---
Discharge Plan Disposition Patient Disposition: [facility] INPATIENT Condition: Serious Discharge Details Chief Complaint: CVA/TIA Clinical Impression: Pneumonia, Hypercarbia, Acute alteration in mental status Admit Date/Time: 02/16/20 19:04 Admit Provider: Vincenzo Michaud Attending Provider: Vincenzo Michaud Primary Care Provider: Kirsten Friedman ED Provider: James Ge Medical Decision Making 64-year-old female with multiple medical problems including history of COPD, methadone use, recently admitted and discharged from the hospital with concern for opioid overdose, here with altered mental status from baseline, hypoxic off oxygen. Oxygen saturation improved on nasal cannula oxygen. Consider acute life-threatening intracranial hemorrhage or CVA. CT of the head interpreted by radiology: Early senescent changes noted, no acute process. Chest x-ray reviewed interpreted by radiology: IMPRESSION: 1. Limited exam due to patient's position which limits evaluation of left side of the lung. 2. There is a new airspace opacity in right lower lung which might reflect pneumonia or infiltrate. 3. Stable bilateral reticulonodular interstitial opacities , part of which appears chronic due to chronic interstitial lung disease. 4. Chronic healed fractures of the bilateral ribs. Labs reviewed and leukocytosis noted. VBG consistent with respiratory acidosis. I suspect hypercarbia is contributing to her altered mental status. Plan to start antibiotic coverage with cefepime IV. Patient will need pseudomonal coverage. I will send lactate and blood cultures. Care transitioned to Dr. Michaud, on-call hospitalist, who will admit the patient. Care transition to Dr. Michaud. HPI General Mode of arrival: EMS. Date/Time Provider Initiated Documentation: 02/16/20 16:28. Limitations to Documentation: altered mental status. Information obtained by: EMS. HPI Narrative: History review of systems limited secondary to altered status. EMS notes patient was altered. Last known normal this morning per manager environmental. Patient was found slumped over and hypoxic. Patient mentation has improved slightly with oxygen administration in route. Patient does not have complaints. Related Data Home Medications Medication Instructions Recorded Confirmed triamcinolone acetonide 1 lorraine TOPICAL TID PRN #30 gm 09/07/17 02/16/20 compressor, for nebulizer #1 each 09/28/18 02/07/20 methadone 10 mg/mL oral concentrate 30 mg PO DAILY ml 09/28/18 02/16/20 cholecalciferol (vitamin D3) 50 2,000 unit PO DAILY 01/24/19 02/16/20 mcg (2,000 unit) capsule ipratropium 0.5 mg-albuterol 3 mg 3 ml UPD Q6H PRN PRN #90 ml 01/24/19 02/16/20 (2.5 mg base)/3 mL nebulization soln lisinopril 10 mg tablet 10 mg PO DAILY #90 tab-cap 03/22/19 02/16/20 aspirin 81 mg PO DAILY #30 tab 05/24/19 02/16/20 fluticasone furoate 200 1 inh IH DAILY #60 each 07/06/19 01/28/20 mcg-vilanterol 25 mcg/dose inhalation powder mirtazapine 30 mg tablet 30 mg PO HS #30 tab-cap 07/26/19 02/16/20 bupropion HCl 300 mg 24 hr tablet, 300 mg PO DAILY #90 tab 08/16/19 02/16/20 extended release food supplemt, lactose-reduced See Rx Instructions PO BID #237 ml 08/19/19 02/16/20 0.04 gram-1.05 kcal/mL oral liquid furosemide 40 mg PO BID 09/19/19 02/16/20 spironolactone 25 mg tablet 50 mg PO BID #120 tab 10/16/19 02/16/20 docusate sodium [Colace] 100 mg PO TID PRN PRN #30 cap 11/01/19 02/16/20 nicotine 14 mg TRANSDERMAL DAILY #30 ea 11/01/19 02/16/20 polyethylene glycol 3350 17 g PO DAILY PRN PRN #510 g 11/01/19 02/16/20 haloperidol lactate 2 mg/mL oral 0.5 mg PO TID PRN #15 ml MDD 1.5 mg 11/30/19 02/16/20 concentrate scopolamine base 1 mg over 3 days 1 patch TD Q3D #10 each 12/12/19 02/16/20 transdermal patch hydroxyzine HCl 50 mg tablet 50 mg PO QID PRN #60 tab 01/18/20 02/16/20 omeprazole 20 mg capsule,delayed 40 mg PO DAILY #60 cap 01/18/20 02/16/20 release prednisone 20 mg tablet 40 mg PO DAILY #8 tab 01/18/20 02/16/20 Refresh Tears 1 drp OPHTHALMIC (EYE) DIRECTED 01/23/20 02/16/20 albuterol sulfate [Ventolin HFA] 2 puff INHALATION BID 01/23/20 02/16/20 magnesium chloride [Mag 64] 500 mg PO BID 01/23/20 02/16/20 prednisone See Rx Instructions .ROUTE 01/23/20 02/16/20 .COMPLEX #12 tab gabapentin 300 mg capsule 300 mg PO TID #90 cap 02/06/20 02/16/20 ondansetron 4 mg disintegrating 4 mg PO Q8H PRN #30 tab 02/13/20 02/16/20 tablet Previous Rx's Medication Instructions Recorded compressor, for nebulizer #1 each 09/28/18 ipratropium 0.5 mg-albuterol 3 mg 3 ml UPD Q6H PRN PRN #90 ml 01/24/19 (2.5 mg base)/3 mL nebulization soln lisinopril 10 mg tablet 10 mg PO DAILY #90 tab-cap 03/22/19 aspirin 81 mg PO DAILY #30 tab 05/24/19 fluticasone furoate 200 1 inh IH DAILY #60 each 07/06/19 mcg-vilanterol 25 mcg/dose inhalation powder mirtazapine 30 mg tablet 30 mg PO HS #30 tab-cap 07/26/19 bupropion HCl 300 mg 24 hr tablet, 300 mg PO DAILY #90 tab 08/16/19 extended release food supplemt, lactose-reduced See Rx Instructions PO BID #237 ml 08/19/19 0.04 gram-1.05 kcal/mL oral liquid spironolactone 25 mg tablet 50 mg PO BID #120 tab 10/16/19 docusate sodium [Colace] 100 mg PO TID PRN PRN #30 cap 11/01/19 nicotine 14 mg TRANSDERMAL DAILY #30 ea 11/01/19 polyethylene glycol 3350 17 g PO DAILY PRN PRN #510 g 11/01/19 haloperidol lactate 2 mg/mL oral 0.5 mg PO TID PRN #15 ml MDD 1.5 mg 11/30/19 concentrate scopolamine base 1 mg over 3 days 1 patch TD Q3D #10 each 12/12/19 transdermal patch hydroxyzine HCl 50 mg tablet 50 mg PO QID PRN #60 tab 01/18/20 omeprazole 20 mg capsule,delayed 40 mg PO DAILY #60 cap 01/18/20 release prednisone 20 mg tablet 40 mg PO DAILY #8 tab 01/18/20 prednisone See Rx Instructions .ROUTE 01/23/20 .COMPLEX #12 tab gabapentin 300 mg capsule 300 mg PO TID #90 cap 02/06/20 ondansetron 4 mg disintegrating 4 mg PO Q8H PRN #30 tab 02/13/20 tablet Allergies Allergy/AdvReac Type Severity Reaction Status Date / Time gabapentin AdvReac Severe Nausea Verified 01/28/20 13:50 metaxalone [Metaxalone] AdvReac Severe nausea Verified 01/28/20 13:50 diclofenac [Diclofenac] AdvReac Intermediate contraindicated Verified 01/28/20 13:50 w/ pt's liver promethazine AdvReac Mild disoriented Verified 01/28/20 13:50 prochlorperazine AdvReac Unknown disoriented Verified 01/28/20 13:50 General Stated Complaint: CVA/TIA JANNIE: 1 Review of Systems Unobtainable due to mental status [facility] Medical History Abnormal CT of the chest (Acute 03/18/17) stable 2mm nodule in AILYN Annual Chest CT for lung cancer screening recommended Acute renal failure (Resolved 04/29/14) a. creatinine bumped from 0.8 to 2.9 b. h/o renal failure 06/2013, presented with creatinine 5.4, which normalized with IV fluids Acute right-sided low back pain without sciatica (Chronic 06/08/17) Pain rad thru buttock, but not down leg. Priformis Syndr? [ ] PT [ ] Hx Pain Clinic (Injctn #1 helped, #2 did not). Occasional relief from SOMA. Trial GABAPENTIN 06/09/18.in past Anxiety and depression (Chronic) Bilateral pneumonia (Acute 04/29/14) A. Bilateral lower lobes Biliary colic (Inactive) Cirrhosis Cirrhosis of liver (Chronic) a. History of Hep C treatment. b. Liver biopsy 2005 positive for cirrhosis. 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 AFP levels every six months and ruq US every 12 months COPD (chronic obstructive pulmonary disease) (Chronic) Ongoing tobacco use. COPD (chronic obstructive pulmonary disease) (Chronic) COPD with acute exacerbation (Inactive) Diabetes (Chronic) On Metformin. Diabetes mellitus DNI (do not intubate) (Acute) DNR (do not resuscitate) (Acute) Essential hypertension (Chronic) Well maintained, meds tolerated. Falls (Acute) Hepatitis C HTN (hypertension) Hypertension (Chronic) Mass of upper extremity (Inactive 12/21/13) Methadone dependence (Chronic) Nausea & vomiting (Resolved) Neuropathy of right radial nerve (Chronic) a. recently had multiple falls and a hematoma around her humerus b. resolving Pleuritic chest pain (Resolved 04/29/14) a. left sided POLST (Physician Orders for Life-Sustaining Treatment) (Chronic) DNR/DNI Polysubstance abuse (Chronic) a. h/o opiate overdose 06/2013 and 11/2013 b. recently started in [facility] program 03/13/2014 on oral methadone (missed her dose today) Shortness of breath (Acute) Spinal stenosis (Chronic) a. MRI 10/2009, showed L4-5 narrowing Tobacco abuse (Chronic) Tobacco use disorder Tubular adenoma of colon (Inactive) Varices of esophagus determined by endoscopy (Acute) Surgical History Appendectomy (01/30/07) H/O: hysterectomy (Chronic) History of ankle surgery (Acute) left S/P bilateral breast lumpectomy (Acute) Family History Mother Myocardial infarction Stroke Sister Diabetes Myocardial infarction Sister Diabetes Father Diabetes Alcohol abuse Myocardial infarction Social History Smoking/Tobacco Use Status: Current every day Tobacco Type: cigarettes Smoking packs per day: 1 Smoking cigarettes per day: 20.0 Years smoked: 40 Smoking pack-years: 40.00 Quit status: considering quitting Counseling given: other Details: pt feels motivated and states she doesnt enjoy them now Alcohol Intake: never Drug use: Current Sobriety Substance use type: heroin Details: on [facility] clinic Adopted: No Household members: none Housing: house Communication Needs: None Pets and animals: Yes Pets and animals: cat(s) What is your relationship status?: Panel score (0-1 are the most socially isolated patients): 0 What type of physical activity do you participate in: none Seatbelt use: always Drive intox or ride w/intox 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 Working smoke detector in home: Yes Fire extinguisher in home: Yes Carbon monox detector in home: Yes Do you feel safe at home: Yes Do you feel safe in your relationship?: Yes Exam Const General: frail appearing Nutritional Appearance: cachectic Orientation: alert, awake and confused [facility] Head: normocephalic and atraumatic Mouth: moist mucous membranes Eyes Conjunctivae: normal conjunctivae Sclera: normal sclerae Neck Neck: trachea midline and supple Chest Chest: no tenderness Resp Effort & Inspection: tachypneic Auscultation: diminished lung sounds and rhonchi Cardio Jugular venous pressure: no JVD Rate: bradycardic Rhythm: regular rhythm GI Palpation: soft, not firm, no guarding, no masses, not rigid and nontender Skin General skin exam: no rashes or lesions noted Neuro General: patient alert, patient awake and tone normal Extrem General: no calf tenderness and no edema Course Vital Signs Vital signs: Vital Signs Temperature 36.7 C 02/16/20 16:24 Pulse 105 H 02/16/20 16:24 Respiratory Rate 13 02/16/20 16:24 Blood Pressure 106/75 02/16/20 16:24 Pulse Oximetry 100 02/16/20 16:24 Temperature 35 C L 02/16/20 21:00 Temperature Source Skin 02/16/20 19:27 Pulse 71 02/16/20 21:00 Pulse Rhythm Regular 02/16/20 21:00 Pulse 95 H 02/16/20 17:50 Respiratory Rate 6 L 02/16/20 21:00 Respiratory Effort 02/16/20 21:00 Respiratory Depth Retractive 02/16/20 21:00 Respiratory Pattern Bradypnea 02/16/20 21:00 Blood Pressure 102/65 02/16/20 21:00 Blood Pressure Mean 71 02/16/20 17:15 Blood Pressure Position Supine 02/16/20 16:24 Pulse Oximetry 93 L 02/16/20 21:00 Respiratory End-tidal CO2 50 02/16/20 19:27 Oxygen Delivery Method Nasal Cannula 02/16/20 21:00 Oxygen Flow Rate 1 02/16/20 21:00 Comment 02/16/20 17:29 Lab/Test Results Lab/Test Results: 02/16/20 18:37 Blood Blood Culture - Pending Laboratory Tests Range/Units 02/16/20 02/16/20 02/16/20 16:32 16:32 16:32 WBC (4.4-10.8) 10^3/uL 23.25 H RBC (3.93-5.22) 10^6/uL 4.20 Hgb (11.2-15.7) g/dL 11.3 Hct (36.0-46.0) % 37.7 MCV (80-95) fL 89.8 MCH (27.0-33.0) pg 26.9 L MCHC (32.0-36.0) % 30.0 L RDW (11.7-14.6) % 16.4 H Plt Count (130-400) 10^3/uL 399 MPV (8.0-11.0) fL 9.0 Immature Gran % 0.0 Neutrophils % 91.0 Lymphocytes % 6.0 Monocytes % 3.0 Eosinophils % 0.0 Basophils % 0.0 Nucleated RBC % % 0 Absolute Neutrophils (1.2-6.7) 10^3/uL 21.16 H Absolute Lymphocytes (1.2-3.4) 10^3/uL 1.40 Absolute Monocytes (0.1-0.8) 10^3/uL 0.70 Absolute Eosinophils (0.0-0.7) 10^3/uL 0.00 Absolute Basophils (0.0-0.2) 10^3/uL 0.00 RBC Morphology See below Hypochromasia 1+ Basophilic Stippling 1+ PT (9.3-11.0) sec 10.1 INR (0.9-1.1) 1.0 VBG pH (7.31-7.41) VBG pCO2 (41-51) mmHg VBG pO2 mmHg VBG HCO3 (23-28) mmol/L VBG Total CO2 (24-29) mmol/L VBG O2 Saturation % VBG Base Excess (-2-3) mmol/L VBG Lactate (0.6-1.4) mmol/L Sodium (136-145) mmol/L 138 Potassium (3.5-5.1) mmol/L 4.9 Chloride (98-107) mmol/L 102 Carbon Dioxide (21.0-32.0) mmol/L 33.9 H Anion Gap (3-11) mmol/L 2.1 L BUN (7-18) mg/dL 30 H Creatinine (0.55-1.02) mg/dL 0.61 Estimated GFR/1.73 m2 (mL/min/1.73m2) >= 60.00 Glucose (74-106) mg/dL 145 H Calcium (8.5-10.1) mg/dL 9.2 Magnesium (1.8-2.4) mg/dL 1.8 Total Bilirubin (0.2-1.0) mg/dL 0.2 AST (15-37) U/L 32 ALT (14-59) U/L 55 Alkaline Phosphatase (46-116) U/L 130 H Troponin I (<0.06) ng/mL < 0.05 Total Protein (6.4-8.2) g/dL 7.3 Albumin (3.4-5.0) g/dL 3.0 L Urine Color (Yellow) Urine Clarity (Clear) Urine pH (5-8) Ur Specific Bimble (1.005-1.025) Urine Protein (Negative) mg/dL Urine Ketones (Negative) mg/dL Urine Blood (Negative) Urine Nitrite (Negative) Urine Bilirubin (Negative) Urine Urobilinogen (Up TO 0.2) EU/dL Ur Leukocyte Esterase (Negative) Urine RBC (0-2) HPF Urine WBC (0-5) HPF Ur Epithelial Cells (Negative) HPF Urine Crystals Urine Bacteria (Negative) HPF Urine Mucus Ur Culture Indicated? Urine Glucose (Negative) mg/dL Urine Opiates Screen (Negative) Urine Methadone Screen (Negative) Ur Barbiturates Screen (Negative) Ur Tricyclics Screen (Negative) Ur Amphetamines Screen (Negative) U Benzodiazepines Scrn (Negative) Urine Cocaine Screen (Negative) Ur THC Screen (Negative) Range/Units 02/16/20 02/16/20 02/16/20 16:32 18:23 18:23 WBC (4.4-10.8) 10^3/uL RBC (3.93-5.22) 10^6/uL Hgb (11.2-15.7) g/dL Hct (36.0-46.0) % MCV (80-95) fL MCH (27.0-33.0) pg MCHC (32.0-36.0) % RDW (11.7-14.6) % Plt Count (130-400) 10^3/uL MPV (8.0-11.0) fL Immature Gran % Neutrophils % Lymphocytes % Monocytes % Eosinophils % Basophils % Nucleated RBC % % Absolute Neutrophils (1.2-6.7) 10^3/uL Absolute Lymphocytes (1.2-3.4) 10^3/uL Absolute Monocytes (0.1-0.8) 10^3/uL Absolute Eosinophils (0.0-0.7) 10^3/uL Absolute Basophils (0.0-0.2) 10^3/uL RBC Morphology Hypochromasia Basophilic Stippling PT (9.3-11.0) sec INR (0.9-1.1) VBG pH (7.31-7.41) 7.14 L* VBG pCO2 (41-51) mmHg 94 H* VBG pO2 mmHg 37 VBG HCO3 (23-28) mmol/L 32 H VBG Total CO2 (24-29) mmol/L 32 H VBG O2 Saturation % 68 VBG Base Excess (-2-3) mmol/L 4 H VBG Lactate (0.6-1.4) mmol/L Sodium (136-145) mmol/L Potassium (3.5-5.1) mmol/L Chloride (98-107) mmol/L Carbon Dioxide (21.0-32.0) mmol/L Anion Gap (3-11) mmol/L BUN (7-18) mg/dL Creatinine (0.55-1.02) mg/dL Estimated GFR/1.73 m2 (mL/min/1.73m2) Glucose (74-106) mg/dL Calcium (8.5-10.1) mg/dL Magnesium (1.8-2.4) mg/dL Total Bilirubin (0.2-1.0) mg/dL AST (15-37) U/L ALT (14-59) U/L Alkaline Phosphatase (46-116) U/L Troponin I (<0.06) ng/mL Total Protein (6.4-8.2) g/dL Albumin (3.4-5.0) g/dL Urine Color (Yellow) Yellow Urine Clarity (Clear) Cloudy Urine pH (5-8) 6.0 Ur Specific Bimble (1.005-1.025) 1.025 Urine Protein (Negative) mg/dL 30 H Urine Ketones (Negative) mg/dL Negative Urine Blood (Negative) Negative Urine Nitrite (Negative) Negative Urine Bilirubin (Negative) Negative Urine Urobilinogen (Up TO 0.2) EU/dL 0.2 Ur Leukocyte Esterase (Negative) Trace H Urine RBC (0-2) HPF 0-2 Urine WBC (0-5) HPF 5-10 Ur Epithelial Cells (Negative) HPF Many Urine Crystals Not Applicable Urine Bacteria (Negative) HPF Moderate Urine Mucus Not Applicable Ur Culture Indicated? No/sq. contamination Urine Glucose (Negative) mg/dL Negative Urine Opiates Screen (Negative) Negative Urine Methadone Screen (Negative) Positive A Ur Barbiturates Screen (Negative) Negative Ur Tricyclics Screen (Negative) Negative Ur Amphetamines Screen (Negative) Negative U Benzodiazepines Scrn (Negative) Negative Urine Cocaine Screen (Negative) Negative Ur THC Screen (Negative) Negative Range/Units 02/16/20 19:00 WBC (4.4-10.8) 10^3/uL RBC (3.93-5.22) 10^6/uL Hgb (11.2-15.7) g/dL Hct (36.0-46.0) % MCV (80-95) fL MCH (27.0-33.0) pg MCHC (32.0-36.0) % RDW (11.7-14.6) % Plt Count (130-400) 10^3/uL MPV (8.0-11.0) fL Immature Gran % Neutrophils % Lymphocytes % Monocytes % Eosinophils % Basophils % Nucleated RBC % % Absolute Neutrophils (1.2-6.7) 10^3/uL Absolute Lymphocytes (1.2-3.4) 10^3/uL Absolute Monocytes (0.1-0.8) 10^3/uL Absolute Eosinophils (0.0-0.7) 10^3/uL Absolute Basophils (0.0-0.2) 10^3/uL RBC Morphology Hypochromasia Basophilic Stippling PT (9.3-11.0) sec INR (0.9-1.1) VBG pH (7.31-7.41) VBG pCO2 (41-51) mmHg VBG pO2 mmHg VBG HCO3 (23-28) mmol/L VBG Total CO2 (24-29) mmol/L VBG O2 Saturation % VBG Base Excess (-2-3) mmol/L VBG Lactate (0.6-1.4) mmol/L 0.3 L Sodium (136-145) mmol/L Potassium (3.5-5.1) mmol/L Chloride (98-107) mmol/L Carbon Dioxide (21.0-32.0) mmol/L Anion Gap (3-11) mmol/L BUN (7-18) mg/dL Creatinine (0.55-1.02) mg/dL Estimated GFR/1.73 m2 (mL/min/1.73m2) Glucose (74-106) mg/dL Calcium (8.5-10.1) mg/dL Magnesium (1.8-2.4) mg/dL Total Bilirubin (0.2-1.0) mg/dL AST (15-37) U/L ALT (14-59) U/L Alkaline Phosphatase (46-116) U/L Troponin I (<0.06) ng/mL Total Protein (6.4-8.2) g/dL Albumin (3.4-5.0) g/dL Urine Color (Yellow) Urine Clarity (Clear) Urine pH (5-8) Ur Specific Bimble (1.005-1.025) Urine Protein (Negative) mg/dL Urine Ketones (Negative) mg/dL Urine Blood (Negative) Urine Nitrite (Negative) Urine Bilirubin (Negative) Urine Urobilinogen (Up TO 0.2) EU/dL Ur Leukocyte Esterase (Negative) Urine RBC (0-2) HPF Urine WBC (0-5) HPF Ur Epithelial Cells (Negative) HPF Urine Crystals Urine Bacteria (Negative) HPF Urine Mucus Ur Culture Indicated? Urine Glucose (Negative) mg/dL Urine Opiates Screen (Negative) Urine Methadone Screen (Negative) Ur Barbiturates Screen (Negative) Ur Tricyclics Screen (Negative) Ur Amphetamines Screen (Negative) U Benzodiazepines Scrn (Negative) Urine Cocaine Screen (Negative) Ur THC Screen (Negative)
[2020-02-16] MEDS: Lactated Ringers 1,000 ML 75 ML IV (21:35)
[2020-02-17] MEDS: Scopolamine 1 MG/3 DAYS PATCH TD (00:09)
[2020-02-17 00:23] VITALS: BP 109/74; PULSE 98; RESP 10; TEMP 36.4; O2SAT 98
[2020-02-17 04:12] VITALS: BP 105/78; PULSE 85; RESP 14; TEMP 36.1; O2SAT 98
[2020-02-17 08:18] LABS: Absolute Eosinophil Count 0.02 10^3/uL (0.0-0.7); Absolute Monocyte Count 1.39 10^3/uL (0.1-0.8); Basophils % 0.1; Eosinophils % 0.1; HCT 35.1 % (36.0-46.0); HGB 10.7 g/dL (11.2-15.7); Lymphocytes % 9.6; MCH 27.5 pg (27.0-33.0); MCHC 30.5 % (32.0-36.0); MCV 90.2 fL (80-95); MPV 9.8 fL (8.0-11.0); Monocytes % 6.8; Neutrophils % 82.4; Nucleated RBC 0 %; Platelet Count 313 10^3/uL (130-400); RBC 3.89 10^6/uL (3.93-5.22); RDW 16.4 % (11.7-14.6); RDW-SD 54.3 fL; WBC 20.43 10^3/uL (4.4-10.8)
[2020-02-17 08:19] LABS: Absolute Basophil Count 0.02 10^3/uL (0.0-0.2); Absolute Lymphocyte Count 1.96 10^3/uL (1.2-3.4); Absolute Neutrophil Count 16.83 10^3/uL (1.2-6.7)
[2020-02-17 08:28] LABS: Anion Gap 0.7 mmol/L (3-11); BUN 26 mg/dL (7-18); CO2 33.3 mmol/L (21.0-32.0); CREATININE 0.34 mg/dL (0.55-1.02); Calcium 8.9 mg/dL (8.5-10.1); Chloride 100 mmol/L (98-107); Glucose 68 mg/dL (74-106); Sodium 134 mmol/L (136-145)
--- NOTE | 2020-02-17 08:55 | PGE_ITS ---
Date of Service Date of service: 02/17/20 Time of Service: 08:55 Assessment and Plan Assessment and plan (1) Respiratory failure: Start date: 02/17/20 Start time: 08:59 Status: Acute Assessment and plan: Patient is in hypercapnic respiratory failure. She has agonal respirations. She does not want to be intubated or mechanically ventilated, she has agreed to comfort measures only Qualifiers: Chronicity: chronic Respiratory failure complication: hypercapnia Qualified Code(s): J96.12 - Chronic respiratory failure with hypercapnia (2) Comfort measures only status: Start date: 02/17/20 Start time: 08:59 Status: Acute Assessment and plan: Kira is actively dying, she agrees to being made comfortable which are the wishes she discussed previously with palliative. Loli PHELPS from palliative has been made aware of her status. She will be placed on a morphine drip for comfort. Subjective Subjective Patient reports: shortness of breath Interval history since last seen: Patient is in hypercapnic respiratory failure. She has agonal respirations. She does not want to be intubated or mechanically ventilated. Previous admissions she has seen Loli from palliative, discussion was that in this situation she would want to be made comfortable. Spoke with Kira regarding prognosis; she knows that she is actively dying at this time, is likely imminent in the next couple days, she agrees to being made comfortable. Will start morphine drip. Exam Narrative Exam Narrative: Middle aged female that is appears to be actively dying. She is cachetic with agnol respirations. Frail and very sick looking. Objective Objective Clinical Data: Abnormal lab results 02/16/20 02/16/20 02/16/20 Range/Units 16:32 16:32 16:32 WBC 23.25 H (4.4-10.8) 10^3/uL RBC (3.93-5.22) 10^6/uL Hgb (11.2-15.7) g/dL Hct (36.0-46.0) % MCH 26.9 L (27.0-33.0) pg MCHC 30.0 L (32.0-36.0) % RDW 16.4 H (11.7-14.6) % Absolute Neutrophils 21.16 H (1.2-6.7) 10^3/uL Absolute Monocytes (0.1-0.8) 10^3/uL VBG pH 7.14 L* (7.31-7.41) VBG pCO2 94 H* (41-51) mmHg VBG HCO3 32 H (23-28) mmol/L VBG Total CO2 32 H (24-29) mmol/L VBG Base Excess 4 H (-2-3) mmol/L VBG Lactate (0.6-1.4) mmol/L Sodium (136-145) mmol/L Carbon Dioxide 33.9 H (21.0-32.0) mmol/L Anion Gap 2.1 L (3-11) mmol/L BUN 30 H (7-18) mg/dL Creatinine (0.55-1.02) mg/dL Glucose 145 H (74-106) mg/dL Alkaline Phosphatase 130 H (46-116) U/L Albumin 3.0 L (3.4-5.0) g/dL Urine Protein (Negative) mg/dL Ur Leukocyte Esterase (Negative) Urine Methadone Screen (Negative) 02/16/20 02/16/20 02/16/20 Range/Units 18:23 18:23 19:00 WBC (4.4-10.8) 10^3/uL RBC (3.93-5.22) 10^6/uL Hgb (11.2-15.7) g/dL Hct (36.0-46.0) % MCH (27.0-33.0) pg MCHC (32.0-36.0) % RDW (11.7-14.6) % Absolute Neutrophils (1.2-6.7) 10^3/uL Absolute Monocytes (0.1-0.8) 10^3/uL VBG pH (7.31-7.41) VBG pCO2 (41-51) mmHg VBG HCO3 (23-28) mmol/L VBG Total CO2 (24-29) mmol/L VBG Base Excess (-2-3) mmol/L VBG Lactate 0.3 L (0.6-1.4) mmol/L Sodium (136-145) mmol/L Carbon Dioxide (21.0-32.0) mmol/L Anion Gap (3-11) mmol/L BUN (7-18) mg/dL Creatinine (0.55-1.02) mg/dL Glucose (74-106) mg/dL Alkaline Phosphatase (46-116) U/L Albumin (3.4-5.0) g/dL Urine Protein 30 H (Negative) mg/dL Ur Leukocyte Esterase Trace H (Negative) Urine Methadone Screen Positive A (Negative) 02/17/20 02/17/20 Range/Units 08:05 08:05 WBC 20.43 H (4.4-10.8) 10^3/uL RBC 3.89 L (3.93-5.22) 10^6/uL Hgb 10.7 L (11.2-15.7) g/dL Hct 35.1 L (36.0-46.0) % MCH (27.0-33.0) pg MCHC 30.5 L (32.0-36.0) % RDW 16.4 H (11.7-14.6) % Absolute Neutrophils 16.83 H (1.2-6.7) 10^3/uL Absolute Monocytes 1.39 H (0.1-0.8) 10^3/uL VBG pH (7.31-7.41) VBG pCO2 (41-51) mmHg VBG HCO3 (23-28) mmol/L VBG Total CO2 (24-29) mmol/L VBG Base Excess (-2-3) mmol/L VBG Lactate (0.6-1.4) mmol/L Sodium 134 L (136-145) mmol/L Carbon Dioxide 33.3 H (21.0-32.0) mmol/L Anion Gap 0.7 L (3-11) mmol/L BUN 26 H (7-18) mg/dL Creatinine 0.34 L (0.55-1.02) mg/dL Glucose 68 L D (74-106) mg/dL Alkaline Phosphatase (46-116) U/L Albumin (3.4-5.0) g/dL Urine Protein (Negative) mg/dL Ur Leukocyte Esterase (Negative) Urine Methadone Screen (Negative) Vital Signs Temperature 36.1 C L 02/17/20 04:12 Temperature Source Tympanic 02/17/20 04:12 Pulse 85 02/17/20 04:12 Pulse Rhythm Regular 02/17/20 01:04 Pulse 95 H 02/16/20 17:50 Respiratory Rate 14 02/17/20 04:12 Respiratory Effort Drooling 09/06/20 01:04 Respiratory Depth Normal 02/17/20 01:04 Respiratory Pattern Bradypnea 02/17/20 01:04 Blood Pressure 105/78 02/17/20 04:12 Blood Pressure Mean 71 02/16/20 17:15 Blood Pressure Position Supine 02/16/20 16:24 Pulse Oximetry 98 02/17/20 04:12 Respiratory End-tidal CO2 50 02/16/20 19:27 Oxygen Delivery Method Nasal Cannula 02/17/20 04:12 Oxygen Flow Rate 2 02/17/20 04:12 Fraction of Inspired Oxygen (FIO2) 30 02/17/20 00:23 Comment 02/16/20 17:29 Intake & Output 02/16/20 02/16/20 02/17/20 11:59 23:59 11:59 Intake Total 100 / 100 Output Total 250 / 250 Balance 100 / 100 -250 / -250 Weight 34.1 kg Intake: IV 100 / 100 Output: Urine 250 / 250 Other: Urine Color Yellow Urine Appearance Clear Cloudy Laboratory Results WBC 20.43 10^3/uL (4.4-10.8) H 02/17/20 08:05 RBC 3.89 10^6/uL (3.93-5.22) L 02/17/20 08:05 Hgb 10.7 g/dL (11.2-15.7) L 02/17/20 08:05 Hct 35.1 % (36.0-46.0) L 02/17/20 08:05 MCV 90.2 fL (80-95) 02/17/20 08:05 MCH 27.5 pg (27.0-33.0) 02/17/20 08:05 MCHC 30.5 % (32.0-36.0) L 02/17/20 08:05 RDW 16.4 % (11.7-14.6) H 02/17/20 08:05 Plt Count 313 10^3/uL (130-400) 02/17/20 08:05 MPV 9.8 fL (8.0-11.0) 02/17/20 08:05 Immature Gran % 1.0 02/17/20 08:05 Neutrophils % 82.4 02/17/20 08:05 Lymphocytes % 9.6 02/17/20 08:05 Monocytes % 6.8 02/17/20 08:05 Eosinophils % 0.1 02/17/20 08:05 Basophils % 0.1 02/17/20 08:05 Nucleated RBC % 0 % 02/17/20 08:05 Absolute Neutrophils 16.83 10^3/uL (1.2-6.7) H 02/17/20 08:05 Absolute Lymphocytes 1.96 10^3/uL (1.2-3.4) 02/17/20 08:05 Absolute Monocytes 1.39 10^3/uL (0.1-0.8) H 02/17/20 08:05 Absolute Eosinophils 0.02 10^3/uL (0.0-0.7) 02/17/20 08:05 Absolute Basophils 0.02 10^3/uL (0.0-0.2) 02/17/20 08:05 RBC Morphology See below 02/16/20 16:32 Hypochromasia 1+ 02/16/20 16:32 Basophilic Stippling 1+ 02/16/20 16:32 PT 10.1 sec (9.3-11.0) 02/16/20 16:32 INR 1.0 (0.9-1.1) 02/16/20 16:32 ABG Sample Site Cancelled 02/16/20 22:43 ABG pH Cancelled 02/16/20 22:43 ABG pCO2 Cancelled 02/16/20 22:43 ABG pO2 Cancelled 02/16/20 22:43 ABG HCO3 Cancelled 02/16/20 22:43 ABG Total CO2 Cancelled 02/16/20 22:43 ABG O2 Saturation Cancelled 02/16/20 22:43 ABG Base Excess Cancelled 02/16/20 22:43 VBG pH 7.14 (7.31-7.41) L* 02/16/20 16:32 VBG pCO2 94 mmHg (41-51) H* 02/16/20 16:32 VBG pO2 37 mmHg 02/16/20 16:32 VBG HCO3 32 mmol/L (23-28) H 02/16/20 16:32 VBG Total CO2 32 mmol/L (24-29) H 02/16/20 16:32 VBG O2 Saturation 68 % 02/16/20 16:32 VBG Base Excess 4 mmol/L (-2-3) H 02/16/20 16:32 VBG Lactate 0.3 mmol/L (0.6-1.4) L 02/16/20 19:00 Oxygen Liter Flow Cancelled 02/16/20 22:43 FiO2 Cancelled 02/16/20 22:43 Sodium 134 mmol/L (136-145) L 02/17/20 08:05 Potassium 5.0 mmol/L (3.5-5.1) 02/17/20 08:05 Chloride 100 mmol/L (98-107) 02/17/20 08:05 Carbon Dioxide 33.3 mmol/L (21.0-32.0) H 02/17/20 08:05 Anion Gap 0.7 mmol/L (3-11) L 02/17/20 08:05 BUN 26 mg/dL (7-18) H 02/17/20 08:05 Creatinine 0.34 mg/dL (0.55-1.02) L 02/17/20 08:05 Estimated GFR/1.73 m2 >= 60.00 (mL/min/1.73m2) 02/17/20 08:05 Glucose 68 mg/dL (74-106) L D 02/17/20 08:05 Calcium 8.9 mg/dL (8.5-10.1) 02/17/20 08:05 Magnesium 1.8 mg/dL (1.8-2.4) 02/16/20 16:32 Total Bilirubin 0.2 mg/dL (0.2-1.0) 02/16/20 16:32 AST 32 U/L (15-37) 02/16/20 16:32 ALT 55 U/L (14-59) 02/16/20 16:32 Alkaline Phosphatase 130 U/L (46-116) H 02/16/20 16:32 Troponin I < 0.05 ng/mL (<0.06) 02/16/20 16:32 Total Protein 7.3 g/dL (6.4-8.2) 02/16/20 16:32 Albumin 3.0 g/dL (3.4-5.0) L 02/16/20 16:32 Urine Color Yellow (Yellow) 02/16/20 18:23 Urine Clarity Cloudy (Clear) 02/16/20 18:23 Urine pH 6.0 (5-8) 02/16/20 18:23 Ur Specific [place] 1.025 (1.005-1.025) 02/16/20 18:23 Urine Protein 30 mg/dL (Negative) H 02/16/20 18:23 Urine Ketones Negative mg/dL (Negative) 02/16/20 18:23 Urine Blood Negative (Negative) 02/16/20 18:23 Urine Nitrite Negative (Negative) 02/16/20 18:23 Urine Bilirubin Negative (Negative) 02/16/20 18:23 Urine Urobilinogen 0.2 EU/dL (Up TO 0.2) 02/16/20 18:23 Ur Leukocyte Esterase Trace (Negative) H 02/16/20 18:23 Urine RBC 0-2 HPF (0-2) 02/16/20 18:23 Urine WBC 5-10 HPF (0-5) 02/16/20 18:23 Ur Epithelial Cells Many HPF (Negative) 02/16/20 18:23 Urine Crystals Not Applicable 02/16/20 18:23 Urine Bacteria Moderate HPF (Negative) 02/16/20 18:23 Urine Mucus Not Applicable 02/16/20 18:23 Ur Culture Indicated? No/sq. contamination 02/16/20 18:23 Urine Glucose Negative mg/dL (Negative) 02/16/20 18:23 Urine Opiates Screen Negative (Negative) 02/16/20 18:23 Urine Methadone Screen Positive (Negative) A 02/16/20 18:23 Ur Barbiturates Screen Negative (Negative) 02/16/20 18:23 Ur Tricyclics Screen Negative (Negative) 02/16/20 18:23 Ur Amphetamines Screen Negative (Negative) 02/16/20 18:23 U Benzodiazepines Scrn Negative (Negative) 02/16/20 18:23 Urine Cocaine Screen Negative (Negative) 02/16/20 18:23 Ur THC Screen Negative (Negative) 02/16/20 18:23
[2020-02-17] MEDS: Aspirin E.C. 81 MG TABEC PO (09:03)
[2020-02-17] MEDS: buPROPion-XL 150 MG TABCR 300 MG PO (09:03)
[2020-02-17] MEDS: Nicotine 14 MG/24 HR PATCH TD (09:03)
[2020-02-17] MEDS: MORPHine 250 MG in Normal Saline 245 ML IV (09:58)
[2020-02-17 10:51] VITALS: RESP 10
[2020-02-17] MEDS: LORazepam 2 MG/ML VIAL IV/SC ×3 (11:05→21:43)
--- NOTE | 2020-02-17 15:02 | PDOC.CMPRO ---
- If Service Date Differs Date of service: 02/17/20 Time of Service: 15:02 Care Management Progress Note S/O: Kira is here actively dying. She does not have family and does not have end of life plans. LEIZABETH did contact a friend listed in her chart Cathie Bedolla. She is going to come and stay with her for awhile. Friend is also going to check on her cats if she still has them. ELIZABETH contacted Sean to reach out to [facility] to provide Kira with last rites. Rachid should be contacted when Kira passes. When Rachid is contacted let them know there is no one responsible for Kira and they will assist. Kira remains on a infusion for comfort she did appear to be in pain when CM in the room. She opened her eyes and tried to speak however she was not able. She appears to be having some air hunger and her breathing is labored. Primary nurse in the room and will increse infusion to manage symptoms. CM will continue to provide support throughout end of life care. P: Kira will remain at [facility] for end of life care. Contact Rachid at time of .
[2020-02-17 16:45] LABS: COVID-19 RT-PCR UVMMC Result Negative (Negative)
[2020-02-17] MEDS: Normal Saline Flush 10 ML SYR IVP (21:43)
[2020-02-18] MEDS: LORazepam 2 MG/ML VIAL IV/SC ×5 (02:42→14:26)
[2020-02-18] MEDS: Normal Saline Flush 10 ML SYR IVP ×5 (02:43→13:34)
[2020-02-18] MEDS: Nicotine 14 MG/24 HR PATCH TD (09:01)
[2020-02-18] MEDS: Glycopyrrolate 0.2 MG/1 ML VIAL IVP ×2 (09:25→11:39)
[2020-02-18] MEDS: LORazepam 2 MG/ML VIAL 1 MG IVP (09:39)
--- NOTE | 2020-02-18 09:47 | CMPROGNOTE_ITS ---
- If Service Date Differs Date of service: 02/18/20 Time of Service: 09:47 Care Management Progress Note Komal peacefully this afternoon at 15:23 pm. [facility] was contacted by nursing staff. There were no family members to be notified.
--- NOTE | 2020-02-18 11:39 | W.PM.PROGNOT ---
Date of Service Date of service: 02/18/20 Time of Service: 11:39 Assessment and Plan Assessment and plan (1) Respiratory failure: Start date: 02/18/20 Start time: 11:45 Status: Acute Assessment and plan: Patient is actively dying She has agonal respirations at 4 per min. She does not want to be intubated or mechanically ventilated, she has agreed to comfort measures only Qualifiers: Chronicity: chronic Respiratory failure complication: hypercapnia Qualified Code(s): J96.12 - Chronic respiratory failure with hypercapnia (2) Comfort measures only status: Start date: 02/18/20 Start time: 11:45 Status: Acute Assessment and plan: Kira is actively dying, She is unresponsive at 3 mg per hour of morphine, 1 mg ativan x 2 doses overnight, 2 doses this morning. She appears comfortable. Above case discussed with Dr. Bella who is in agreement. Subjective Subjective Patient reports: other Interval history since last seen: Breathing about 4 agnol breaths per min, unresponsive. Catheter in place. Exam Narrative Exam Narrative: Lying in bed, thin frail, unresponsive. Agnol respirations, multiple abraisions and brusing to extremities. Actively dying Objective Objective Clinical Data: Vital Signs Temperature 36.1 C L 02/17/20 04:12 Temperature Source Tympanic 02/17/20 04:12 Pulse 85 02/17/20 04:12 Pulse Rhythm Regular 02/17/20 01:04 Pulse 95 H 02/16/20 17:50 Respiratory Rate 14 02/17/20 04:12 Respiratory Effort 02/18/20 07:30 Respiratory Depth Shallow 02/18/20 07:30 Respiratory Pattern Normal 02/18/20 07:30 Blood Pressure 105/78 02/17/20 04:12 Blood Pressure Mean 71 02/16/20 17:15 Blood Pressure Position Supine 02/16/20 16:24 Pulse Oximetry 98 02/17/20 04:12 Respiratory End-tidal CO2 50 02/16/20 19:27 Oxygen Delivery Method Nasal Cannula 02/17/20 04:12 Oxygen Flow Rate 2 02/17/20 04:12 Fraction of Inspired Oxygen (FIO2) 30 02/17/20 10:51 Comment 02/16/20 17:29 Intake & Output 02/17/20 02/17/20 02/18/20 11:59 23:59 11:59 Intake Total 1031.25 / 1757.184 725.934 / 1757.184 Output Total 550 / 1000 450 / 1000 650 / 650 Balance 481.25 / 757.184 275.934 / 757.184 -650 / -650 Intake: IV 881.25 / 907.184 25.934 / 907.184 Oral 150 / 850 700 / 850 Output: Urine 550 / 1000 450 / 1000 650 / 650 Other: Urine Color Yellow Yellow Pale Yellow Urine Appearance Cloudy Clear Clear Urine Odor None Voiding Methods Indwelling Catheter Laboratory Results WBC 20.43 10^3/uL (4.4-10.8) H 02/17/20 08:05 RBC 3.89 10^6/uL (3.93-5.22) L 02/17/20 08:05 Hgb 10.7 g/dL (11.2-15.7) L 02/17/20 08:05 Hct 35.1 % (36.0-46.0) L 02/17/20 08:05 MCV 90.2 fL (80-95) 02/17/20 08:05 MCH 27.5 pg (27.0-33.0) 02/17/20 08:05 MCHC 30.5 % (32.0-36.0) L 02/17/20 08:05 RDW 16.4 % (11.7-14.6) H 02/17/20 08:05 Plt Count 313 10^3/uL (130-400) 02/17/20 08:05 MPV 9.8 fL (8.0-11.0) 02/17/20 08:05 Immature Gran % 1.0 02/17/20 08:05 Neutrophils % 82.4 02/17/20 08:05 Lymphocytes % 9.6 02/17/20 08:05 Monocytes % 6.8 02/17/20 08:05 Eosinophils % 0.1 02/17/20 08:05 Basophils % 0.1 02/17/20 08:05 Nucleated RBC % 0 % 02/17/20 08:05 Absolute Neutrophils 16.83 10^3/uL (1.2-6.7) H 02/17/20 08:05 Absolute Lymphocytes 1.96 10^3/uL (1.2-3.4) 02/17/20 08:05 Absolute Monocytes 1.39 10^3/uL (0.1-0.8) H 02/17/20 08:05 Absolute Eosinophils 0.02 10^3/uL (0.0-0.7) 02/17/20 08:05 Absolute Basophils 0.02 10^3/uL (0.0-0.2) 02/17/20 08:05 RBC Morphology See below 02/16/20 16:32 Hypochromasia 1+ 02/16/20 16:32 Basophilic Stippling 1+ 02/16/20 16:32 PT 10.1 sec (9.3-11.0) 02/16/20 16:32 INR 1.0 (0.9-1.1) 02/16/20 16:32 ABG Sample Site Cancelled 02/16/20 22:43 ABG pH Cancelled 02/16/20 22:43 ABG pCO2 Cancelled 02/16/20 22:43 ABG pO2 Cancelled 02/16/20 22:43 ABG HCO3 Cancelled 02/16/20 22:43 ABG Total CO2 Cancelled 02/16/20 22:43 ABG O2 Saturation Cancelled 02/16/20 22:43 ABG Base Excess Cancelled 02/16/20 22:43 VBG pH 7.14 (7.31-7.41) L* 02/16/20 16:32 VBG pCO2 94 mmHg (41-51) H* 02/16/20 16:32 VBG pO2 37 mmHg 02/16/20 16:32 VBG HCO3 32 mmol/L (23-28) H 02/16/20 16:32 VBG Total CO2 32 mmol/L (24-29) H 02/16/20 16:32 VBG O2 Saturation 68 % 02/16/20 16:32 VBG Base Excess 4 mmol/L (-2-3) H 02/16/20 16:32 VBG Lactate 0.3 mmol/L (0.6-1.4) L 02/16/20 19:00 Oxygen Liter Flow Cancelled 02/16/20 22:43 FiO2 Cancelled 02/16/20 22:43 Sodium 134 mmol/L (136-145) L 02/17/20 08:05 Potassium 5.0 mmol/L (3.5-5.1) 02/17/20 08:05 Chloride 100 mmol/L (98-107) 02/17/20 08:05 Carbon Dioxide 33.3 mmol/L (21.0-32.0) H 02/17/20 08:05 Anion Gap 0.7 mmol/L (3-11) L 02/17/20 08:05 BUN 26 mg/dL (7-18) H 02/17/20 08:05 Creatinine 0.34 mg/dL (0.55-1.02) L 02/17/20 08:05 Estimated GFR/1.73 m2 >= 60.00 (mL/min/1.73m2) 02/17/20 08:05 Glucose 68 mg/dL (74-106) L D 02/17/20 08:05 Calcium 8.9 mg/dL (8.5-10.1) 02/17/20 08:05 Magnesium 1.8 mg/dL (1.8-2.4) 02/16/20 16:32 Total Bilirubin 0.2 mg/dL (0.2-1.0) 02/16/20 16:32 AST 32 U/L (15-37) 02/16/20 16:32 ALT 55 U/L (14-59) 02/16/20 16:32 Alkaline Phosphatase 130 U/L (46-116) H 02/16/20 16:32 Troponin I < 0.05 ng/mL (<0.06) 02/16/20 16:32 Total Protein 7.3 g/dL (6.4-8.2) 02/16/20 16:32 Albumin 3.0 g/dL (3.4-5.0) L 02/16/20 16:32 Urine Color Yellow (Yellow) 02/16/20 18:23 Urine Clarity Cloudy (Clear) 02/16/20 18:23 Urine pH 6.0 (5-8) 02/16/20 18:23 Ur Specific [place] 1.025 (1.005-1.025) 02/16/20 18:23 Urine Protein 30 mg/dL (Negative) H 02/16/20 18:23 Urine Ketones Negative mg/dL (Negative) 02/16/20 18:23 Urine Blood Negative (Negative) 02/16/20 18:23 Urine Nitrite Negative (Negative) 02/16/20 18:23 Urine Bilirubin Negative (Negative) 02/16/20 18:23 Urine Urobilinogen 0.2 EU/dL (Up TO 0.2) 02/16/20 18:23 Ur Leukocyte Esterase Trace (Negative) H 02/16/20 18:23 Urine RBC 0-2 HPF (0-2) 02/16/20 18:23 Urine WBC 5-10 HPF (0-5) 02/16/20 18:23 Ur Epithelial Cells Many HPF (Negative) 02/16/20 18:23 Urine Crystals Not Applicable 02/16/20 18:23 Urine Bacteria Moderate HPF (Negative) 02/16/20 18:23 Urine Mucus Not Applicable 02/16/20 18:23 Ur Culture Indicated? No/sq. contamination 02/16/20 18:23 Urine Glucose Negative mg/dL (Negative) 02/16/20 18:23 Urine Opiates Screen Negative (Negative) 02/16/20 18:23 Urine Methadone Screen Positive (Negative) A 02/16/20 18:23 Ur Barbiturates Screen Negative (Negative) 02/16/20 18:23 Ur Tricyclics Screen Negative (Negative) 02/16/20 18:23 Ur Amphetamines Screen Negative (Negative) 02/16/20 18:23 U Benzodiazepines Scrn Negative (Negative) 02/16/20 18:23 Urine Cocaine Screen Negative (Negative) 02/16/20 18:23 Ur THC Screen Negative (Negative) 02/16/20 18:23 COVID-19 PCR Negative (Negative) 02/16/20 19:25 Nasopharyn COVID-19 PCR Not Applicable 02/16/20 19:25 Ref Test Perform [facility] 02/16/20 19:25
--- NOTE | 2020-02-18 15:30 | W.PM.DDS ---
Date of service: 02/18/20 Time of Service: 15:30 Discharge Sum: Prov Provider Primary care physician: Dr. Friedman Admitting clinician: Vincenzo Michaud Attending physician on admission: Gopi Bella Pronouncing clinician: Carlene Virk Discharge Sum: Diag PCOD Cause of : Respiratory failure with hypercapnia Contributing Factors (1) Respiratory failure: Contributing factors: Advanced COPD, oxygen dependent, steroid dependent (2) Comfort measures only status: Discharge Sum: Summary Date and Time Admission Date: 01/27/2009/05/20 19:04 Date of : 02/18/20 Time of : 15:23 Summary Details: Advanced COPD, oxygen dependent, steroid dependent, severe chachexia, frail, not eating, recently admitted with pneumonia, left AMA and found on floor with agnol respirations in respiratory failure with hypercapnia, desired to be comfort measures only Additional Data Confirmation of as documented by pronouncing clinician: no pulse and no respirations Family: contacted Attending Physician: Vincenzo Matt Was code activated?: No Autopsy requested?: No home office claims examiner notified?: No Hospice patient?: No
== END 2020-02-18 15:28 | disposition expired | DRG 194 ==
LOC: ER 19:30 → MS 20:34
PROVIDERS: Admitting Provider Family Medicine; Emergency Provider Student in an Organized Health Care Education/Training Program; PCP Student in an Organized Health Care Education/Training Program; Visit Provider Family Medicine
DX: J18.9 Pneumonia, unspecified organism (principal); J96.12 Chronic respiratory failure with hypercapnia; F11.20 Opioid dependence, uncomplicated; I85.10 Secondary esophageal varices without bleeding; R64 Cachexia; Z68.1 Body mass index [BMI] 19.9 or less, adult; F17.210 Nicotine dependence, cigarettes, uncomplicated; Z99.81 Dependence on supplemental oxygen; J43.1 Panlobular emphysema; Z66 Do not resuscitate; Z51.5 Encounter for palliative care; R91.1 Solitary pulmonary nodule; F41.8 Other specified anxiety disorders; B19.20 Unspecified viral hepatitis C without hepatic coma; K74.69 Other cirrhosis of liver; E11.9 Type 2 diabetes mellitus without complications; Z79.84 Long term (current) use of oral hypoglycemic drugs; I10 Essential (primary) hypertension; G54.0 Brachial plexus disorders; M48.061 Spinal stenosis, lumbar region without neurogenic claudication; R41.82 Altered mental status, unspecified
CPT/HCPCS: 36415; 80048; 80053; 80307; 82805; 87040; 93005; 96365; 99223; 99233; 99239; 99285; U0003; 70450; 71045; 81003; 81015; 83605; 83735; 84484; 85025; 85610; 93010; 94660; J2060